=== PATIENT | male | born 1945 | race Caucasian/White ===

== ENCOUNTER 2017-10-12 14:43 | Inpatient (IN) | payer MEDICARE, SELFPAY ==
[2017-10-12 14:51] VITALS: BP 116/74; PULSE 94; RESP 18; TEMP 36.7; O2SAT 98
--- NOTE | 2017-10-12 14:59 | ED.GENADUL ---
Disposition Clinical Impression: Acute cystitis with hematuria Clinical Impression: (Ruled Out): Acute cystitis Disposition: [facility] INPATIENT Condition: Improving Medical Decision Making - Lab Data Laboratory Results - last 24 hr 10/12/17 10/12/17 10/12/17 15:20 15:30 15:30 WBC 13.91 H RBC 4.89 Hgb 15.1 Hct 44.0 MCV 90.0 MCH 30.9 MCHC 34.3 RDW 14.1 Plt Count 316 MPV 10.6 Immature Gran % 0.2 Neutrophils % 82.1 Lymphocytes % 10.8 Monocytes % 6.0 Eosinophils % 0.7 Basophils % 0.2 Absolute Neutrophils 11.42 H Absolute Lymphocytes 1.50 Absolute Monocytes 0.83 H Absolute Eosinophils 0.10 Absolute Basophils 0.03 Sodium 139 Potassium 3.6 Chloride 101 Carbon Dioxide 29.6 Anion Gap 8.4 BUN 34 H Creatinine 2.18 H Estimated GFR/1.73 m2 29.88 Glucose 286 H Calcium 9.2 Total Bilirubin 0.6 AST 19 ALT 31 Alkaline Phosphatase 152 H Total Protein 7.6 Albumin 3.4 Urine Color Yellow Urine Clarity Sl cloudy Urine pH 6.0 Ur Specific [place] 1.025 Urine Protein >=300 H Urine Ketones Negative Urine Blood Large H Urine Nitrite Positive H Urine Bilirubin Negative Urine Urobilinogen 0.2 Ur Leukocyte Esterase Trace H Urine RBC >50 H Urine WBC >50 Ur Epithelial Cells Negative Urine Crystals Negative Urine Bacteria Many Urine Casts Negative Urine Mucus Negative Ur Culture Indicated? Yes Urine Glucose 250 H Results reviewed for labs ordered during visit: Yes - Radiology Data Radiology results: report reviewed, image reviewed - Medical Decision Making 71-year-old male with history of BPH, presents with difficulty starting or stopping stream of urine over weeks time. He has no fever, is well-appearing, reports some suprapubic distention discomfort that improved with bit of incontinence of urine earlier in the day. Patient is afebrile and normotensive. Differential diagnosis includes UTI, prostatic hypertrophy. Patient had Whitt catheter placed with large volume urinary output and subsequent bloody discharge. He subsequently developed some bladder spasms as well. Referred for laboratory testing and CT imaging Creatinine typically 1.6 increase to 2.1 today BUN elevated to 34 with baseline mid 20s. Patient has a positive UTI with both positive nitrites, leukoesterase, white blood cells and bacteria. Case discussed with Dr. Cooney who agrees that the patient's urinary retention due to BPH and now urinary tract infection have led to irritation of the bladder mucosa and subsequent hematuria. He agrees with antibiotics, admission if needed for pain control. He states that he would not change to three-way catheter but rather irrigate the bladder as needed if catheter becomes obstructed. CT reveals mild right hydronephrosis and hydroureter. Appears to be acute clot within the bladder. See formal report. After B&O suppository, oxybutynin, and some morphine the patient has persistent bladder discomfort. Given his age, mild renal insufficiency, I do feel an overnight admission is reasonable. History of Present Illness - General Chief complaint: Urinary Stated complaint: CALEX Time Seen by Provider: 10/12/17 14:44 Source: patient, EMS Mode of arrival: EMS Limitations: no limitations - History of Present Illness Initial comments: Urinary retention: 71-year-old male with 2 weeks of intermittent episodes of dysuria with difficulty in starting a stream of urine. Today with suprapubic discomfort that was mild to moderate and improved with incontinence of urine. He has no fever, back pain, vomiting. States that he has otherwise been well. -: week(s) Location: abdomen Radiation: non-radiation Severity scale (1-10): 10 Quality: stabbing Consistency: intermittent Improves with: none Worsens with: none - Related Data Aspirin 81 mg PO DAILY 02/08/15 Glipizide 5 mg PO DAILY 02/08/15 Hydrochlorothiazide 25 mg PO DAILY 02/08/15 Insulin Aspart [NovoLOG Flexpen] 20 unit SQ AC 02/08/15 Insulin Glargine [Lantus Solostar] 45 units SQ BID 02/08/15 Losartan Potassium 50 mg PO DAILY 02/08/15 Multivitamin [Multivitamins] 1 tab PO DAILY 02/08/15 Sertraline [Zoloft] 100 mg PO DAILY 02/08/15 Tamsulosin [Flomax] 0.4 mg PO DAILY 02/08/15 Tiotropium [place] [Spiriva] 1 cap IH DAILY 02/08/15 Omeprazole 40 mg PO BID #60 tab-cap 08/14/16 Atorvastatin [Lipitor] 80 mg PO HS 10/12/17 Allergies Allergy/AdvReac Type Severity Reaction Status Date / Time No Known Allergies Allergy Unverified 10/12/17 17:27 Review of Systems Other: 6 systems reviewed, otherwise negative General Exam - General Limitations: no limitations General appearance: alert, in no apparent distress - Head Head exam: Present: atraumatic, normocephalic - Eye Eye exam: Present: PERRL, EOMI - ENT ENT exam: Present: TM's normal bilaterally - Neck Neck exam: Present: normal inspection, full ROM - Respiratory Respiratory exam: Present: normal lung sounds bilaterally. Absent: respiratory distress - Cardiovascular Cardiovascular Exam: Present: regular rate, normal rhythm - GI/Abdominal GI/Abdominal exam: Present: distended, other (Suprapubic distention). Absent: tenderness - Extremities Exam Extremities exam: Present: normal inspection - Neurological Exam Neurological exam: Present: alert, oriented X3 - Psychiatric Psychiatric exam: Present: normal affect, normal mood - Skin Skin exam: Present: warm, dry, intact Course Vital Signs - 24 hr 10/12/17 14:51 Temperature 36.7 C Pulse 94 H Respiratory 18 Rate Blood Pressure 116/74 Pulse Oximetry 98
[2017-10-12] MEDS: Lidocaine 2% Jelly 11 ML SYR (15:19)
--- NOTE | 2017-10-12 15:29 | DI.RPTCT_ITS ---
SYMPTOM/DIAGNOSIS: LOW ABD PAIN, HEMATURIA RENAL COLIC CT: The image quality is degraded by respiratory motion. The lung bases are unremarkable. Coronary artery calcifications are seen. The liver and gallbladder are unremarkable. No stones or ductal dilatation is seen. The pancreas, spleen and adrenals are unremarkable. Note is made of mild right hydronephrosis and hydroureter. The stomach and bowel are unremarkable. There are no findings to suggest an acute appendix. A vicente catheter drains the bladder. There is mild hypoattenuation material present in the bladder concerning for clot. No stones are seen. The patient is status post penile prosthesis placement with right lower quadrant and upper inguinal reservoir. The prostate is enlarged. There is no evidence of free air or free fluid in the intraperitoneal space. There is no acute bony abnormality. Soft tissues are unremarkable. There are moderate atherosclerotic changes with no evidence of an aortic aneurysm. There is no evidence of lymphadenopathy. SUMMARY: Obstructive changes in the right kidney are demonstrated, presumably secondary to an obstructing bladder lesion. There appears to be acute clot within the bladder.
[2017-10-12 15:33] LABS: Bilirubin Negative (Negative); Blood Large (Negative); Clarity Sl Cloudy; Glucose 250 mg/dL (Negative); Ketones Negative (Negative); Leukocyte Esterase Trace (Negative); Nitrite Positive (Negative); Specific Gravity 1.025 (1.005-1.025); Urobilinogen 0.2 EU/dL (Up TO 0.2)
[2017-10-12] MEDS: Ondansetron 4 MG/2 ML VIAL IVP (15:42)
[2017-10-12 16:01] LABS: ALT 31 U/L (12-78); AST 19 U/L (15-37); Albumin 3.4 g/dL (3.4-5.0); Alkaline Phosphatase 152 U/L (46-116); Anion Gap 8.4 mmol/L (3-11); BUN 34 mg/dL (7-18); Bilirubin, Total 0.6 mg/dL (0.2-1.0); CO2 29.6 mmol/L (21.0-32.0); CREATININE 2.18 mg/dL (0.70-1.30); Calcium 9.2 mg/dL (8.5-10.1); Chloride 101 mmol/L (98-107); Estimated GFR 29.88 (mL/min/1.73m2); Glucose 286 mg/dL (70-100); Potassium 3.6 mmol/L (3.5-5.1); Sodium 139 mmol/L (136-145); Total Protein 7.6 g/dL (6.4-8.2)
[2017-10-12 16:01] LABS: Bacteria Many HPF (Negative); C & S Indicated? Yes; Casts Negative LPF (Negative); Crystals Negative HPF (Negative); Epithelial Cells Negative HPF (Negative); Mucus Negative (Negative); RBC >50 (0-2); WBC >50 HPF (0-5)
[2017-10-12 16:15] LABS: Abs Immature Grans 0.03 k/cumm (0.0-0.09); Absolute Basophil Count 0.03 k/cumm (0.0-0.2); Basophils % 0.2; Eosinophils % 0.7; HGB 15.1 g/dL (13.5-17.5); Immature Grans % 0.2; Lymphocytes % 10.8; Mean Corp. HGB Concentration 34.3 g/dL (32.0-36.0); Mean Corpuscular Hemoglobin 30.9 pg (27.0-33.0); Mean Platelet Volume 10.6 fL (8.0-11.0); Neutrophils % 82.1; Platelet Count 316 x1000/uL (130-400); RBC 4.89 m/cumm (4.50-6.00); RBC Distribution Width 14.1 % (11.8-14.1); White Blood Cell Count 13.91 k/cumm (4.4-10.8)
[2017-10-12 16:17] LABS: Absolute Monocyte Count 0.83 k/cumm (0.11-0.7); Absolute Neutrophil Count 11.42 k/cumm (1.2-6.7)
[2017-10-12 16:30] VITALS: BP 109/93; PULSE 108; O2SAT 94
[2017-10-12] MEDS: MORPHine 10 MG/ML VIAL 4 MG IVP (16:40)
[2017-10-12 17:00] VITALS: BP 111/80; PULSE 109; O2SAT 95
[2017-10-12] MEDS: Oxybutynin 5 MG TAB PO ×2 (17:05→21:00)
[2017-10-12] MEDS: Normal Saline 1,000 ML 100 ML IV (17:23)
--- NOTE | 2017-10-12 17:25 | DI.VRAD_ITS ---
EXAM: CT Abdomen and Pelvis Without Intravenous Contrast EXAM DATE/TIME: 10/12/2017 3:30 PM CLINICAL HISTORY: 71 years old, male; Signs and symptoms; Abdominal tenderness and other: Lower abdominal pain, hematuria TECHNIQUE: Axial computed tomography images of the abdomen and pelvis without intravenous contrast. Coronal and sagittal reformatted images were created and reviewed. COMPARISON: No relevant prior studies available. FINDINGS: Artifacts: Respiratory motion noted. Lung bases: Unremarkable. No mass. No consolidation. Heart: Coronary artery calcifications identified. ABDOMEN: Liver: Unremarkable. Gallbladder and bile ducts: Unremarkable. No calcified stones. No ductal dilation. Pancreas: Unremarkable. No ductal dilation. Spleen: Unremarkable. No splenomegaly. Adrenals: Unremarkable. No mass. Kidneys and ureters: There is mild right hydronephrosis and hydroureter. Stomach and bowel: Unremarkable. No obstruction. No mucosal thickening. PELVIS: Appendix: No findings to suggest acute appendicitis. Bladder: Whitt catheter drains the bladder. There is hyperattenuating material present in the bladder concerning for clot. No stones. Reproductive: The patient is status post penile prosthesis placement with right lower quadrant and upper inguinal reservoir. The prostate is enlarged, 5.9 cm. ABDOMEN and PELVIS: Intraperitoneal space: Unremarkable. No free air. No significant fluid collection. Bones/joints: No acute fracture. No dislocation. Soft tissues: See above. Vasculature: Moderate atherosclerotic changes present in the vasculature. No abdominal aortic aneurysm. Lymph nodes: Unremarkable. No enlarged lymph nodes. IMPRESSION: Obstructive changes right renal collecting system, presumably secondary to obstructing bladder lesion. There appears to be acute clot within the bladder. Preliminary interpretation is based on receipt of 1551 image(s). A final report will be issued subsequently. We appreciate the opportunity to be involved in this patient's care. Dictated and Authenticated by: Vy Milian MD. Ordering:JAMIN ZAPIEN MD
[2017-10-12 18:00] VITALS: BP 117/73; PULSE 104; O2SAT 98
[2017-10-12 18:45] VITALS: BP 132/75; PULSE 105; RESP 19; TEMP 36.9; O2SAT 90
[2017-10-12 19:05] VITALS: BP 117/73; PULSE 104; RESP 18; TEMP 36.7; O2SAT 98
[2017-10-12] MEDS: Phenazopyridine 200 MG TAB PO (19:33)
--- NOTE | 2017-10-12 21:35 | HPE_ITS ---
DATE OF ADMISSION: October 12, 2017 CHIEF COMPLAINT: Unable to void. IMPRESSION: UTI, either precipitating or aggravating urinary retention. Unclear if the hematuria represents any further lesion. PLAN: For now, will continue antibiotics, Whitt catheter, with p.r.n. irrigation. Will consult Urology in the morning. Otherwise, will continue usual medications as is, with the exception of holding aspirin. Note: I will put an addendum in when I get doses of insulin but I would reduce this or hold it in the event the patient may be in for a procedure tomorrow. I review Advance Directives with the patient. He has no real opinion and will leave default FULL CODE. Addendum: NPO for AM, will hold scheduled insulin, leave on sliding scale coverage. HISTORY OF PRESENT ILLNESS: The patient is a 71-year-old male with history of BPH. He comes in with several days of difficulty voiding and suprapubic pain. In the Emergency Room, he was noted to have suprapubic distention. A catheter was placed and report is of 600 cc of grossly purulent urine, followed by gross hematuria. The case was reviewed with Urology who suggested p.r.n. irrigation rather than three-way continuous, along with antibiotics. The patient was given a dose of Rocephin. He was admitted for further evaluation and management. PAST MEDICAL HISTORY: 1. BPH. 2. Stroke. 3. Diabetes. 4. GERD. 5. Hypertension. 6. Hyperlipidemia. 7. Kidney stone. 8. Oswald's esophagus. 9. Status post laser to left eye for unspecified lesion. 10. Status post penile implant. ALLERGIES: None known. MEDICATIONS: 1. Aspirin 81 mg daily. 2. Lipitor 80 mg h.s. 3. Hydrochlorothiazide 25 mg daily. 4. Lantus and NovoLog, unspecified dosing. 5. Cozaar 50 mg daily. 6. Multivitamins. 7. Prilosec 40 mg b.i.d. 8. Zoloft 100 mg daily. 9. Flomax 0.4 mg daily. 10. Spiriva daily. PHYSICAL EXAMINATION: GENERAL: The patient is lying flat in the stretcher in no distress. VITAL SIGNS: Temperature 36.7. Blood pressure 116/74. Pulse 94. Respirations 18. O2 saturation 98% on room air. HEENT: Of note for resting left facial droop. NECK: Supple. LUNGS: Clear. HEART: Regular rate and rhythm. ABDOMEN: Soft and nontender. : Notes Whitt catheter in place draining grossly bloody urine. RECTAL: Deferred. EXTREMITIES: Without edema. NEUROLOGIC: The patient is alert and oriented and moves all four extremities. LABORATORY: White count 13.9, hematocrit 44, platelets 316,000. Sodium 139, potassium 3.6, chloride 101, bicarb 29, BUN 34, creatinine 2.1, glucose 286. Urinalysis shows >50 red cells and white cells. Renal CT shows clot in the bladder, prostate enlargement, and a mild right hydronephrosis.
[2017-10-12] MEDS: Atorvastatin 40 MG TAB 80 MG PO (21:53)
[2017-10-13] VITALS (51 sets, daily range): BP systolic 87–169; BP diastolic 46–106; PULSE 69–131; RESP 9–31; TEMP 36.2–36.9; O2SAT 89–100
[2017-10-13] MEDS: Normal Saline 1,000 ML 100 ML IV ×3 (04:55→23:13)
[2017-10-13] MEDS: LORazepam 2 MG/ML VIAL (07:15)
[2017-10-13 07:35] LABS: Abs Immature Grans 0.04 k/cumm (0.0-0.09); Absolute Basophil Count 0.05 k/cumm (0.0-0.2); Absolute Eosinophil Count 0.07 k/cumm (0.0-0.7); Absolute Lymphocyte Count 2.67 k/cumm (1.2-3.4); Absolute Monocyte Count 1.49 k/cumm (0.11-0.7); Absolute Neutrophil Count 12.09 k/cumm (1.2-6.7); Basophils % 0.3; Eosinophils % 0.4; HCT 42.6 % (40.0-50.0); HGB 14.3 g/dL (13.5-17.5); Immature Grans % 0.2; Lymphocytes % 16.3; Mean Corp. HGB Concentration 33.6 g/dL (32.0-36.0); Mean Corpuscular Volume 92.2 fL (80-95); Mean Platelet Volume 10.6 fL (8.0-11.0); Monocytes % 9.1; Neutrophils % 73.7; Platelet Count 404 x1000/uL (130-400); RBC 4.62 m/cumm (4.50-6.00); RBC Distribution Width 14.3 % (11.8-14.1); White Blood Cell Count 16.41 k/cumm (4.4-10.8)
[2017-10-13 07:44] LABS: INR 1.1 (1.0-3.5); Prothrombin Time 10.4 sec (9.3-10.8)
--- NOTE | 2017-10-13 07:50 | DI.RPTCT_ITS ---
SYMPTOM/DIAGNOSIS: ACUTELY UNRESPONSIVE, EYE DEVIATION, H/O CVA NONCONTRAST HEAD CT: There is no evidence of an intra/extra-axial hemorrhage. Age related chronic microvascular changes are noted within the white matter. The ventricles and sulci are prominent consistent with age appropriate atrophy. There is no skull fracture. The soft tissues are unremarkable. The sinuses are unremarkable. There is no mastoid effusion. IMPRESSION: No evidence of an acute intracranial abnormality.
[2017-10-13 07:57] LABS: ALT 25 U/L (12-78); AST 19 U/L (15-37); Albumin 2.8 g/dL (3.4-5.0); Alkaline Phosphatase 132 U/L (46-116); Anion Gap 16.2 mmol/L (3-11); BUN 45 mg/dL (7-18); Bilirubin, Total 0.7 mg/dL (0.2-1.0); CO2 21.8 mmol/L (21.0-32.0); CREATININE 3.15 mg/dL (0.70-1.30); Calcium 8.5 mg/dL (8.5-10.1); Chloride 103 mmol/L (98-107); Estimated GFR 19.54 (mL/min/1.73m2); Glucose 333 mg/dL (70-100); Magnesium 1.7 mg/dL (1.8-2.4); Potassium 4.6 mmol/L (3.5-5.1); Sodium 141 mmol/L (136-145); Total Protein 6.7 g/dL (6.4-8.2)
[2017-10-13 07:59] LABS: Troponin I < 0.02 ng/mL (0.00-0.06)
--- NOTE | 2017-10-13 08:09 | DI.VRAD_ITS ---
EXAM: CT Head Without Intravenous Contrast EXAM DATE/TIME: 10/13/2017 7:49 AM. CLINICAL HISTORY: 71 years old, male; Signs and symptoms; Other: Acutely unrespinsive, eye deviation; Patient HX: H/o CVA TECHNIQUE: Axial computed tomography images of the head/brain without intravenous contrast. All CT scans at this facility use one or more dose reduction techniques, viz.: automated exposure control; ma/kV adjustment per patient size (including targeted exams where dose is matched to indication; i.e. head); or iterative reconstruction technique. Coronal and sagittal reformatted images were created and reviewed. COMPARISON: CT - HEAD WITHOUT CONTRAST 2015-02-08 16:26 FINDINGS: Brain: Age- related chronic microvascular changes are noted within the white matter. No hemorrhage. Ventricles: The ventricles and sulci are prominent compatible with age-appropriate atrophy. Bones/joints: Unremarkable. No acute fracture. Soft tissues: Unremarkable. Sinuses: Unremarkable as visualized. No acute sinusitis. Mastoid air cells: Unremarkable as visualized. No mastoid effusion. IMPRESSION: Age-appropriate atrophy and chronic microvascular change. Dictated and Authenticated by: Bayron Duke MD. Ordering:CAREY GARCIA MD
[2017-10-13] MEDS: Normal Saline Flush 10 ML SYR IVP ×2 (08:17→18:27)
--- NOTE | 2017-10-13 08:41 | NUR.NOTE ---
Nursing Note: JUST BEFORE 7AM PT WOKE AGITATED AND TRYING TO GET OOB. PT LOOKING PALE. VS TAKEN 36.5 160.80 119 20 89% 1L O2 VIA NC. NOTE: NC FOUND OUT OF PT'S NOSE AND HAD JUST REAPPLIED. TAKING VS TOOK SOME TIME PT WAS MOVING IN BED. DID MANUAL BP. 0701 ASKED NURSE MGR TO TAKE A LOOK AT THE PATIENT HE DID NOT LOOK GOOD. NURSE MGR CAME OUT OF ROOM TO CALL MD. APPROX. 0703 PT HAD SEIZURE. HELP WAS SUMMONED. AMONG THOSE RESPONDING WERE: THIS NURSE, XIAO CASIANO, NURSE MGR DR HEATH ED DIRECTOR Leonidas FROM RESPIRATORY AN ANESTHESIOLOGIST JALEN SALMERON RN FROM ED MERE BRICENO, RN MING PATEL, RN ROSALBA COSME, RN 0707 RHYTHM ON ZOLL SHOWED SINUS TACHY WITH A HR OF 141 BY 0709 PT WAS ON A NONEBREATHER WITH 10LPM O2 SATING 94% AND HR 141 REPORT GIVEN TO ICU NURSE FELI KENNEY, MILADYS FS WAS TAKEN DURING CODE AND IT WAS 293. PT WAS GOING TO BE INTUBATED BY ER MD HEATH BUT PT BECAME RESPONSIVE AND INTUBATION WAS NOT NEEDED 0720 ATIVAN 1MG GIVEN IV 0722 LABS DRAWN. PT TAKEN TO ICU SOON AFTER.
[2017-10-13] MEDS: Insulin Aspart 300 UNITS/3 ML PEN SC ×2 (09:06→19:14)
--- NOTE | 2017-10-13 10:43 | PHARADMIT ---
Addendum entered by Michael Friend III 10/17/17 14:15: Pharmacy Note Subjective Having difficulty with bladder spasms (q15 min) overnight. Has urinary retention, getting straight cath'ed. Urine clear to pink was dark red. Has bladder mass, [place] [facility] Objective VS-OK FSBS-280 no Labs, Had BM Assessment MD following Insulin adjustments Plan Awaiting Cystoscopy appointment. ?? discharge later today. Original Note: Addendum entered by Michael Friend III 10/16/17 13:38: Pharmacy Note Subjective Brain MRI shows no lesions. Urinary retention ? secondary to clots. Spasms noted. Objective VS-OK K+3.4 Na-137 SCr-1.52 FSBS-204 Wgt-up (109.7 kg) Large BM today Assessment Rec'd 30mEq K+ PO bolus, Insulin adjusted. MD thinks seizure related to intolerance to B&O Supp. Plan Patient is to go [place] [facility] [place] next week, will be discharged prior. Original Note: Addendum entered by Sendy Dodson 10/15/17 11:55: Pharmacy Note Subjective concern for bladder CA, MRI today(lorazepam PRN ordered) . possible surgery here or transfer to another facility Objective vs ok, urine muñoz colored, SCr down to 1.84, H/H 12.3/36.9, FS 207, Assessment insulin glargine adusted up, ceftriaxone stopped, keppra IV continues Plan watch FS, H/H, Original Note: Addendum entered by Sendy Dodson 10/14/17 11:19: Pharmacy Note Subjective seizure yesterday, soft restraints on, Objective SCr down to 2.31, WBC down to 12.84, H/H down to 12.7/38.2, FS 137, UC no growth 48 hours, hematuria Assessment keppra IV started and continues, Insulin aspart and glargine continue, ceftriaxone IV continues, Plan neurology consult ,EEG, MRI pending, ? stop ceftriaxone due to micro results Original Note: Admission Pharmacy Clinical Review UTI, URINARY RETENTION Code Status Full Code Current Weight Wgt- 104.5 kg Renally Cleared and Narrow Therapeutic Index Meds CrCl~ 21 mL/min Meds-Ok QTc Value / Action Taken QTc-455 na BP Control, Fever BP-117/60 Tmax- 36.7C Electrolytes reviewed Na- 141 K+4.6 Mag-1.7 DVT Prophylaxis None Opiate Usage / Scheduled Bowel Regimen Ordered Yes No Plt/SCr for Heparin / Enoxaparin Plts-404 SCr-3.15 INR for Warfarin inr-1.1 H/H stable, WBC/Bands H&H- 14.3/42.6 WBC- 16.41 Antibiotic appropriateness Rocephin Cultures and Sensitivities Urine- No Growth/24hrs Surgical ABX d/c within 24 hr na DM control / Insulin Dosing BG-333 Aspart, Losartan, Heart Failure (Check EF%) (SMITH's, B-Block, Diuretics) HCTZ, IV to PO Switch No Home Meds Reviewed Yes Home Meds Not Ordered Glipizide, Lantus Comments
--- NOTE | 2017-10-13 10:48 | PDOC.PROG ---
Date of Service: 10/13/17 Time of Service: 10:48 Assessment/Plan - Assessment/Plan (1) Mental status alteration Assessment: Initial assessment including glucose and CT not revealing. General mental status changes, including extraocular muscle abnormalities, could be attributed to multiple anticholinergic medications given last night on top of morphine and benzodiazepine. These have been stopped. I think medication toxicity is most likely the cause of the acute mental status changes. He does have a h/o CVA so I think repeat MRI is warranted. EEG useful as seizure also in DDx. If symptoms do not clear up, request neurologic consult temporarily in restraints for safety until he improves. restart ASA given h/o CVA and no bleed on CT. Some blood in urine but h/h not dropping rapidly. (2) Urinary retention Assessment: Urology consulted, has vicente in place and getting treatment for infection. At this point treat pain with morphine rather than using anticholinergics. Pyridium stopped as contraindicated in renal insufficiency. Given bleeding and clot in bladder on CT, cystoscopy likely warranted. Await Eros's plan. (3) Diabetes type 2, controlled Assessment: Insulin was held on admission. He will likely need at least some basal glargine so I will start at lower dose. (4) Cerebrovascular disease Assessment: h/o CVA. I'm not sure this represents CVA but as above I think MRI warranted. Restarting ASA as I think benefit > risk at this point. (5) Renal insufficiency Assessment: acute on chronic, apparently secondary to lower urinary tract obstruction. Follow. History of Present Illness - History of Present Illness Chief Complaint: urine retention, mental status changes History of Present Illness: 24 hr: Called at 7:18 am initially, patient unresponsive. I arrived to [facility] a few minutes later and Dr. Wakefield was evaluating patient for acute mental status changes, he was confused and eyes were deviated. BP and pulse stable. Consideration was given to intubation for airway protection, but patient became more responsive during evaluation. Transferred to ICU and CT head w/o negative. Upon my initial evaluation, Mr. Panchal was responding to noxious stimuli and localizing touch but unable to follow commands. Currently he is vocalizing/moaning but is not able to give history. He can say no when asked if he remembered what happened this morning. He denies pain currently Review of Systems - Review of Systems Constitutional: denies: Fever Respiratory: denies: Cough Cardiovascular: denies: Edema Gastrointestinal: denies: Vomiting, Diarrhea Genitourinary: Incontinence (chronic), Hematuria, Retention Skin: denies: Rash Neurological: Confusion. denies: Seizures Other: limited by mental status - Medications/Allergies Allergies/Adverse Reactions: Allergies Allergy/AdvReac Type Severity Reaction Status Date / Time No Known Allergies Allergy Unverified 10/12/17 17:27 Medications: Current Medications Albuterol Sulfate (Proventil Updraft) 2.5 mg UPD Q4H PRN PRN Atorvastatin Calcium (Lipitor) 80 mg PO HS [facility] Last Admin: 10/12/17 21:53 Dose: 80 mg Dextrose (Insta-Glucose) 0 gm PO DIRECTED PRN Dextrose/Water () 0 gm IVP DIRECTED PRN Dimethicone/Zinc Oxide (Arabella Protect Cream) 0 gm TP PRN PRN Hydrochlorothiazide (Hydrodiuril) 25 mg PO DAILY [facility] Last Admin: 10/13/17 09:50 Dose: Not Given Sodium Chloride (Saline 1000ml Bag) 1,000 mls @ 100 mls/hr IV INFUSION [facility] Last Admin: 10/13/17 04:55 Dose: 100 mls/hr Ceftriaxone Sodium 1,000 mg/ (Sodium Chloride) 50 mls @ 100 mls/hr IVPB Q24H [facility] IV Miscellaneous Supplies () 1 each IV DIRECTED [facility] Insulin Aspart (Novolog Flexpen) 0 units SC 0800,1200,1700 [facility] PRN Reason: Protocol Last Admin: 10/13/17 09:06 Dose: 10 units Lidocaine HCl (Glydo 2%) Confirm Administered Dose 11 ml .ROUTE .DM PRN Last Admin: 10/12/17 15:19 Dose: 11 ml Losartan Potassium (Cozaar) 50 mg PO DAILY [facility] Last Admin: 10/13/17 09:50 Dose: Not Given Morphine Sulfate () 4 mg IVP Q4H PRN PRN Last Admin: 10/12/17 21:00 Dose: 4 mg Multivitamins () 1 tab PO DAILY [facility] Last Admin: 10/13/17 09:50 Dose: Not Given Omeprazole (Prilosec) 40 mg PO BID [facility] Last Admin: 10/13/17 09:50 Dose: Not Given Sertraline HCl (Zoloft) 100 mg PO DAILY [facility] Last Admin: 10/13/17 09:50 Dose: Not Given Sodium Chloride (Saline Flush 10 Ml Syringe) 0 ml IVP PRN PRN Last Admin: 10/13/17 08:17 Dose: 90 ml Tamsulosin HCl (Flomax) 0.4 mg PO DAILY [facility] Last Admin: 10/13/17 09:50 Dose: Not Given Tiotropium [place] (Spiriva Handihaler) 1 cap IH DAILY [facility] Last Admin: 10/13/17 09:35 Dose: Not Given Objective - Exam Vitals and I&O: Vital Signs Temp 36.6 C 10/13/17 09:12 Pulse 97 H 10/13/17 09:30 Resp 12 10/13/17 09:30 BP 117/60 10/13/17 09:30 Pulse Ox 98 10/13/17 09:12 Intake & Output 10/12/17 10/12/17 10/13/17 11:59 23:59 11:59 Output Total 125 Balance -125 Weight 104.5 kg Output: Urine 125 Other: Urine Color Dark Red Bright Red General: Mild distress. denies: Alert, Oriented x3 HEENT: Atraumatic, PERRLA, Mucous membr. moist/pink. denies: EOMI (Eyes no longer grossly deviated, pupils now reactive about 3mm and roughly equal, but unable to fully complete EOMI) Neck: Supple Lungs: Clear to auscultation, Normal air movement Cardiovascular: Regular rate (borderline tachy), Normal S1, Normal S2 Abdomen: Normal bowel sounds, Soft. denies: Tenderness Extremities: denies: Cyanosis, Edema Skin: denies: Rashes Neurological: Reflexes 2+ (he is moving all 4 extremities. not hyperreflexic. CN assessment difficult as hard to get to follow commands, has chronic left facial droop but now able to stick out toungue, smile, close eyes and roughly symetric). denies: Normal speech Psych/Mental Status: denies: Mental status NL - Results Results: Laboratory Results WBC 16.41 k/cumm (4.4-10.8) H 10/13/17 07:25 RBC 4.62 m/cumm (4.50-6.00) 10/13/17 07:25 Hgb 14.3 g/dL (13.5-17.5) 10/13/17 07:25 Hct 42.6 % (40.0-50.0) 10/13/17 07:25 MCV 92.2 fL (80-95) 10/13/17 07:25 MCH 31.0 pg (27.0-33.0) 10/13/17 07:25 MCHC 33.6 g/dL (32.0-36.0) 10/13/17 07:25 RDW 14.3 % (11.8-14.1) H 10/13/17 07:25 Plt Count 404 x1000/uL (130-400) H 10/13/17 07:25 MPV 10.6 fL (8.0-11.0) 10/13/17 07:25 Immature Gran % 0.2 10/13/17 07:25 Neutrophils % 73.7 10/13/17 07:25 Lymphocytes % 16.3 10/13/17 07:25 Monocytes % 9.1 10/13/17 07:25 Eosinophils % 0.4 10/13/17 07:25 Basophils % 0.3 10/13/17 07:25 Absolute Neutrophils 12.09 k/cumm (1.2-6.7) H 10/13/17 07:25 Absolute Lymphocytes 2.67 k/cumm (1.2-3.4) 10/13/17 07:25 Absolute Monocytes 1.49 k/cumm (0.11-0.7) H 10/13/17 07:25 Absolute Eosinophils 0.07 k/cumm (0.0-0.7) 10/13/17 07:25 Absolute Basophils 0.05 k/cumm (0.0-0.2) 10/13/17 07:25 PT 10.4 sec (9.3-10.8) 10/13/17 07:25 INR 1.1 (1.0-3.5) 10/13/17 07:25 Sodium 141 mmol/L (136-145) 10/13/17 07:25 Potassium 4.6 mmol/L (3.5-5.1) D 10/13/17 07:25 Chloride 103 mmol/L (98-107) 10/13/17 07:25 Carbon Dioxide 21.8 mmol/L (21.0-32.0) 10/13/17 07:25 Anion Gap 16.2 mmol/L (3-11) H 10/13/17 07:25 BUN 45 mg/dL (7-18) H D 10/13/17 07:25 Creatinine 3.15 mg/dL (0.70-1.30) H D 10/13/17 07:25 Estimated GFR/1.73 m2 19.54 (mL/min/1.73m2) 10/13/17 07:25 Glucose 333 mg/dL (70-100) H 10/13/17 07:25 Calcium 8.5 mg/dL (8.5-10.1) 10/13/17 07:25 Magnesium 1.7 mg/dL (1.8-2.4) L 10/13/17 07:25 Total Bilirubin 0.7 mg/dL (0.2-1.0) 10/13/17 07:25 AST 19 U/L (15-37) 10/13/17 07:25 ALT 25 U/L (12-78) 10/13/17 07:25 Alkaline Phosphatase 132 U/L (46-116) H 10/13/17 07:25 Troponin I < 0.02 ng/mL (0.00-0.06) 10/13/17 07:25 Total Protein 6.7 g/dL (6.4-8.2) 10/13/17 07:25 Albumin 2.8 g/dL (3.4-5.0) L 10/13/17 07:25 Urine Color Yellow (Yellow) 10/12/17 15:20 Urine Clarity Sl cloudy 10/12/17 15:20 Urine pH 6.0 (5-8) 10/12/17 15:20 Ur Specific [place] 1.025 (1.005-1.025) 10/12/17 15:20 Urine Protein >=300 mg/dL (Negative) H 10/12/17 15:20 Urine Ketones Negative mg/dL (Negative) 10/12/17 15:20 Urine Blood Large (Negative) H 10/12/17 15:20 Urine Nitrite Positive (Negative) H 10/12/17 15:20 Urine Bilirubin Negative (Negative) 10/12/17 15:20 Urine Urobilinogen 0.2 EU/dL (Up TO 0.2) 10/12/17 15:20 Ur Leukocyte Esterase Trace (Negative) H 10/12/17 15:20 Urine RBC >50 (0-2) H 10/12/17 15:20 Urine WBC >50 HPF (0-5) 10/12/17 15:20 Ur Epithelial Cells Negative HPF (Negative) 10/12/17 15:20 Urine Crystals Negative HPF (Negative) 10/12/17 15:20 Urine Bacteria Many HPF (Negative) 10/12/17 15:20 Urine Casts Negative LPF (Negative) 10/12/17 15:20 Urine Mucus Negative (Negative) 10/12/17 15:20 Ur Culture Indicated? Yes 10/12/17 15:20 Urine Glucose 250 mg/dL (Negative) H 10/12/17 15:20 Patient ABO/Rh A Positive 10/13/17 07:25 Antibody Screen Negative 10/13/17 07:25
--- NOTE | 2017-10-13 10:53 | PDOC.PROG_ITS ---
Date of Service: 10/13/17 Time of Service: 10:48 Assessment/Plan - Assessment/Plan (1) Mental status alteration Assessment: Initial assessment including glucose and CT not revealing. General mental status changes, including extraocular muscle abnormalities, could be attributed to multiple anticholinergic medications given last night on top of morphine and benzodiazepine. These have been stopped. I think medication toxicity is most likely the cause of the acute mental status changes. He does have a h/o CVA so I think repeat MRI is warranted. EEG useful as seizure also in DDx. If symptoms do not clear up, request neurologic consult temporarily in restraints for safety until he improves. restart ASA given h/o CVA and no bleed on CT. Some blood in urine but h/h not dropping rapidly. (2) Urinary retention Assessment: Urology consulted, has vicente in place and getting treatment for infection. At this point treat pain with morphine rather than using anticholinergics. Pyridium stopped as contraindicated in renal insufficiency. Given bleeding and clot in bladder on CT, cystoscopy likely warranted. Await Eros's plan. (3) Diabetes type 2, controlled Assessment: Insulin was held on admission. He will likely need at least some basal glargine so I will start at lower dose. (4) Cerebrovascular disease Assessment: h/o CVA. I'm not sure this represents CVA but as above I think MRI warranted. Restarting ASA as I think benefit > risk at this point. (5) Renal insufficiency Assessment: acute on chronic, apparently secondary to lower urinary tract obstruction. Follow. History of Present Illness - History of Present Illness Chief Complaint: urine retention, mental status changes History of Present Illness: 24 hr: Called at 7:18 am initially, patient unresponsive. I arrived to [facility] a few minutes later and Dr. Wakefield was evaluating patient for acute mental status changes, he was confused and eyes were deviated. BP and pulse stable. Consideration was given to intubation for airway protection, but patient became more responsive during evaluation. Transferred to ICU and CT head w/o negative. Upon my initial evaluation, Mr. Panchal was responding to noxious stimuli and localizing touch but unable to follow commands. Currently he is vocalizing/ moaning but is not able to give history. He can say no when asked if he remembered what happened this morning. He denies pain currently Review of Systems - Review of Systems Constitutional: denies: Fever Respiratory: denies: Cough Cardiovascular: denies: Edema Gastrointestinal: denies: Vomiting, Diarrhea Genitourinary: Incontinence (chronic), Hematuria, Retention Skin: denies: Rash Neurological: Confusion. denies: Seizures Other: limited by mental status - Medications/Allergies Allergies/Adverse Reactions: Allergies Allergy/AdvReac Type Severity Reaction Status Date / Time No Known Allergies Allergy Unverified 10/12/17 17:27 Medications: Current Medications Albuterol Sulfate (Proventil Updraft) 2.5 mg UPD Q4H PRN PRN Atorvastatin Calcium (Lipitor) 80 mg PO HS [facility] Last Admin: 10/12/17 21:53 Dose: 80 mg Dextrose (Insta-Glucose) 0 gm PO DIRECTED PRN Dextrose/Water () 0 gm IVP DIRECTED PRN Dimethicone/Zinc Oxide (Arabella Protect Cream) 0 gm TP PRN PRN Hydrochlorothiazide (Hydrodiuril) 25 mg PO DAILY [facility] Last Admin: 10/13/17 09:50 Dose: Not Given Sodium Chloride (Saline 1000ml Bag) 1,000 mls @ 100 mls/hr IV INFUSION [facility] Last Admin: 10/13/17 04:55 Dose: 100 mls/hr Ceftriaxone Sodium 1,000 mg/ (Sodium Chloride) 50 mls @ 100 mls/hr IVPB Q24H [facility] IV Miscellaneous Supplies () 1 each IV DIRECTED [facility] Insulin Aspart (Novolog Flexpen) 0 units SC 0800,1200,1700 [facility] PRN Reason: Protocol Last Admin: 10/13/17 09:06 Dose: 10 units Lidocaine HCl (Glydo 2%) Confirm Administered Dose 11 ml .ROUTE .DM PRN Last Admin: 10/12/17 15:19 Dose: 11 ml Losartan Potassium (Cozaar) 50 mg PO DAILY [facility] Last Admin: 10/13/17 09:50 Dose: Not Given Morphine Sulfate () 4 mg IVP Q4H PRN PRN Last Admin: 10/12/17 21:00 Dose: 4 mg Multivitamins () 1 tab PO DAILY [facility] Last Admin: 10/13/17 09:50 Dose: Not Given Omeprazole (Prilosec) 40 mg PO BID [facility] Last Admin: 10/13/17 09:50 Dose: Not Given Sertraline HCl (Zoloft) 100 mg PO DAILY [facility] Last Admin: 10/13/17 09:50 Dose: Not Given Sodium Chloride (Saline Flush 10 Ml Syringe) 0 ml IVP PRN PRN Last Admin: 10/13/17 08:17 Dose: 90 ml Tamsulosin HCl (Flomax) 0.4 mg PO DAILY [facility] Last Admin: 10/13/17 09:50 Dose: Not Given Tiotropium [place] (Spiriva Handihaler) 1 cap IH DAILY [facility] Last Admin: 10/13/17 09:35 Dose: Not Given Objective - Exam Vitals and I&O: Vital Signs Temp 36.6 C 10/13/17 09:12 Pulse 97 H 10/13/17 09:30 Resp 12 10/13/17 09:30 BP 117/60 10/13/17 09:30 Pulse Ox 98 10/13/17 09:12 Intake & Output 10/12/17 10/12/17 10/13/17 11:59 23:59 11:59 Output Total 125 Balance -125 Weight 104.5 kg Output: Urine 125 Other: Urine Color Dark Red Bright Red General: Mild distress. denies: Alert, Oriented x3 HEENT: Atraumatic, PERRLA, Mucous membr. moist/pink. denies: EOMI (Eyes no longer grossly deviated, pupils now reactive about 3mm and roughly equal, but unable to fully complete EOMI) Neck: Supple Lungs: Clear to auscultation, Normal air movement Cardiovascular: Regular rate (borderline tachy), Normal S1, Normal S2 Abdomen: Normal bowel sounds, Soft. denies: Tenderness Extremities: denies: Cyanosis, Edema Skin: denies: Rashes Neurological: Reflexes 2+ (he is moving all 4 extremities. not hyperreflexic. CN assessment difficult as hard to get to follow commands, has chronic left facial droop but now able to stick out toungue, smile, close eyes and roughly symetric). denies: Normal speech Psych/Mental Status: denies: Mental status NL - Results Results: Laboratory Results WBC 16.41 k/cumm (4.4-10.8) H 10/13/17 07:25 RBC 4.62 m/cumm (4.50-6.00) 10/13/17 07:25 Hgb 14.3 g/dL (13.5-17.5) 10/13/17 07:25 Hct 42.6 % (40.0-50.0) 10/13/17 07:25 MCV 92.2 fL (80-95) 10/13/17 07:25 MCH 31.0 pg (27.0-33.0) 10/13/17 07:25 MCHC 33.6 g/dL (32.0-36.0) 10/13/17 07:25 RDW 14.3 % (11.8-14.1) H 10/13/17 07:25 Plt Count 404 x1000/uL (130-400) H 10/13/17 07:25 MPV 10.6 fL (8.0-11.0) 10/13/17 07:25 Immature Gran % 0.2 10/13/17 07:25 Neutrophils % 73.7 10/13/17 07:25 Lymphocytes % 16.3 10/13/17 07:25 Monocytes % 9.1 10/13/17 07:25 Eosinophils % 0.4 10/13/17 07:25 Basophils % 0.3 10/13/17 07:25 Absolute Neutrophils 12.09 k/cumm (1.2-6.7) H 10/13/17 07:25 Absolute Lymphocytes 2.67 k/cumm (1.2-3.4) 10/13/17 07:25 Absolute Monocytes 1.49 k/cumm (0.11-0.7) H 10/13/17 07:25 Absolute Eosinophils 0.07 k/cumm (0.0-0.7) 10/13/17 07:25 Absolute Basophils 0.05 k/cumm (0.0-0.2) 10/13/17 07:25 PT 10.4 sec (9.3-10.8) 10/13/17 07:25 INR 1.1 (1.0-3.5) 10/13/17 07:25 Sodium 141 mmol/L (136-145) 10/13/17 07:25 Potassium 4.6 mmol/L (3.5-5.1) D 10/13/17 07:25 Chloride 103 mmol/L (98-107) 10/13/17 07:25 Carbon Dioxide 21.8 mmol/L (21.0-32.0) 10/13/17 07:25 Anion Gap 16.2 mmol/L (3-11) H 10/13/17 07:25 BUN 45 mg/dL (7-18) H D 10/13/17 07:25 Creatinine 3.15 mg/dL (0.70-1.30) H D 10/13/17 07:25 Estimated GFR/1.73 m2 19.54 (mL/min/1.73m2) 10/13/17 07:25 Glucose 333 mg/dL (70-100) H 10/13/17 07:25 Calcium 8.5 mg/dL (8.5-10.1) 10/13/17 07:25 Magnesium 1.7 mg/dL (1.8-2.4) L 10/13/17 07:25 Total Bilirubin 0.7 mg/dL (0.2-1.0) 10/13/17 07:25 AST 19 U/L (15-37) 10/13/17 07:25 ALT 25 U/L (12-78) 10/13/17 07:25 Alkaline Phosphatase 132 U/L (46-116) H 10/13/17 07:25 Troponin I < 0.02 ng/mL (0.00-0.06) 10/13/17 07:25 Total Protein 6.7 g/dL (6.4-8.2) 10/13/17 07:25 Albumin 2.8 g/dL (3.4-5.0) L 10/13/17 07:25 Urine Color Yellow (Yellow) 10/12/17 15:20 Urine Clarity Sl cloudy 10/12/17 15:20 Urine pH 6.0 (5-8) 10/12/17 15:20 Ur Specific [place] 1.025 (1.005-1.025) 10/12/17 15:20 Urine Protein >=300 mg/dL (Negative) H 10/12/17 15:20 Urine Ketones Negative mg/dL (Negative) 10/12/17 15:20 Urine Blood Large (Negative) H 10/12/17 15:20 Urine Nitrite Positive (Negative) H 10/12/17 15:20 Urine Bilirubin Negative (Negative) 10/12/17 15:20 Urine Urobilinogen 0.2 EU/dL (Up TO 0.2) 10/12/17 15:20 Ur Leukocyte Esterase Trace (Negative) H 10/12/17 15:20 Urine RBC >50 (0-2) H 10/12/17 15:20 Urine WBC >50 HPF (0-5) 10/12/17 15:20 Ur Epithelial Cells Negative HPF (Negative) 10/12/17 15:20 Urine Crystals Negative HPF (Negative) 10/12/17 15:20 Urine Bacteria Many HPF (Negative) 10/12/17 15:20 Urine Casts Negative LPF (Negative) 10/12/17 15:20 Urine Mucus Negative (Negative) 10/12/17 15:20 Ur Culture Indicated? Yes 10/12/17 15:20 Urine Glucose 250 mg/dL (Negative) H 10/12/17 15:20 Patient ABO/Rh A Positive 10/13/17 07:25 Antibody Screen Negative 10/13/17 07:25
--- NOTE | 2017-10-13 10:55 | PDOC.CMIN ---
Date of Service: 10/13/17 Time of Service: 10:55 Care Management Initial Assess REASON FOR HOSPITALIZATION:: UTI PAST MEDICAL HISTORY/PAST SURGICAL HISTORY:: BPH, Stroke, Diabetes, GERD, Hypertension, Hyperlipidemia, Kidney stone, Oswald's esophagus, S/P laser to (L) eye for unspecified lesion, S/P penile implant PREVIOUS FUNCTIONAL STATUS/SOCIAL/FAMILY SUPPORTS:: CM obtained all information from Pts son, as Pt is minimally responsive at this time. CM spoke with Hector(Son), whom states that he resides with Pt in his home. At baseline Doroteo is able to drive and drives 1-2x/week. Hector states that Doroteo does not do well with eating habits and eats a lot of junk. 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 Pt also has a daughter Toya whom resides locally as well. CURRENT FUNCTIONAL STATUS:: Doroteo was transferred to the ICU this morning after an episode of unresponsiveness. He remains minimally responsive at this time. Bony Young has been in to visit, and will return this afternoon. ADVANCE DIRECTIVES:: None on file Has patient been provided with information about the portal?: No Did the patient sign up for the portal?: No CODE STATUS:: Full Code INSURANCE COVERAGE / FINANCIAL ISSUES:: Medicare CURRENT HOME/COMMUNITY SERVICES/EQUIPMENT:: Currently Pt has a cane and a shower chair at home which he uses all the time. He has a FWW which he does not use. Pt has MOW in the community. Bony Young states that Pt had home health however this was discontinued as he was driving. PRIMARY CARE PHYSICIAN:: Dr. Magana POTENTIAL DISCHARGE NEEDS:: F/U appointment with PCP. Home Health - ? home health RN/PT/OT services upon DC. PATIENT/FAMILY EDUCATION NEEDS:: Review DC instructions, any limitations, and ongoing DC planning discussion. ANTICIPATED BARRIERS TO DISCHARGE:: None identified at this time. TRANSPORTATION:: Via private vehicle with bony Young. PLAN:: Pt to return home with ? home health RN/PT/OT services. Pts bony Young to transport, and Pt to F/U with PCP outpatient.
--- NOTE | 2017-10-13 11:04 | INITIAL_ITS ---
Date of Service: 10/13/17 Time of Service: 10:55 Care Management Initial Assess REASON FOR HOSPITALIZATION:: UTI PAST MEDICAL HISTORY/PAST SURGICAL HISTORY:: BPH, Stroke, Diabetes, GERD, Hypertension, Hyperlipidemia, Kidney stone, Oswald's esophagus, S/P laser to (L ) eye for unspecified lesion, S/P penile implant PREVIOUS FUNCTIONAL STATUS/SOCIAL/FAMILY SUPPORTS:: CM obtained all information from Pts son, as Pt is minimally responsive at this time. CM spoke with Hector( Son), whom states that he resides with Pt in his home. At baseline Doroteo is able to drive and drives 1-2x/week. Hector states that Doroteo does not do well with eating habits and eats a lot of junk. 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 Pt also has a daughter Toya whom resides locally as well. CURRENT FUNCTIONAL STATUS:: Doroteo was transferred to the ICU this morning after an episode of unresponsiveness. He remains minimally responsive at this time. Bony Young has been in to visit, and will return this afternoon. ADVANCE DIRECTIVES:: None on file Has patient been provided with information about the portal?: No Did the patient sign up for the portal?: No CODE STATUS:: Full Code INSURANCE COVERAGE / FINANCIAL ISSUES:: Medicare CURRENT HOME/COMMUNITY SERVICES/EQUIPMENT:: Currently Pt has a cane and a shower chair at home which he uses all the time. He has a FWW which he does not use. Pt has MOW in the community. Bony Young states that Pt had home health however this was discontinued as he was driving. PRIMARY CARE PHYSICIAN:: Dr. Magana POTENTIAL DISCHARGE NEEDS:: F/U appointment with PCP. Home Health - ? home health RN/PT/OT services upon DC. PATIENT/FAMILY EDUCATION NEEDS:: Review DC instructions, any limitations, and ongoing DC planning discussion. ANTICIPATED BARRIERS TO DISCHARGE:: None identified at this time. TRANSPORTATION:: Via private vehicle with bony Young. PLAN:: Pt to return home with ? home health RN/PT/OT services. Pts bony Young to transport, and Pt to F/U with PCP outpatient.
--- NOTE | 2017-10-13 12:18 | DM INPTCON_ITS ---
DESCRIPTION/ASSESSMENT: Appreciate diabetes consult for Mr. Panchal who is here with a urinary infection. In the past he has taken 40u Lantus AM and PM in addition to 10units at each meal for carbohydrate, and insulin 1 unit corrects 20mg/dl above 140mg/dl. At that time he had difficulty remembering mealtime insulin. Here blood sugars are in the 2-300s with infection and discomfort. It is unclear what he has for medication regimen at this time. Last available A1c 10.6 in 2016. Even with his basal insulin, it is unclear he has been able to correct his a1c. INTERVENTION/PLAN: Suggest his usual basal insulin at the least. Will f/u after a day of blood sugar tracking and management.
[2017-10-13 12:19] LABS: Troponin I < 0.02 ng/mL (0.00-0.06)
--- NOTE | 2017-10-13 15:57 | NUR.NOTE ---
Nursing Note: At change of shift, this RN followed RT into the room to check on patient monitor alarm. Pt found to be unresponsive and posturing (decerebrate positioning with fists clenched and turned out, and arms rigid straight), with foamy sputum at mouth and bilateral eyes fixed and deviated to the left. quality assurance monitor displays sinus tach 130's, unreliable SpO2 reading. Pt very stiff, with jittering right foot. Pt looked similar to episode earlier in shift that caused transfer into ICU originally. This episode lasted 2-3 minutes. Following, pt less rigid but very restless and moaning. Medina James, RN, Merlin Olson, RN, Jason Jacobsen, RN, and Dr. Magana present at this time. Dr. Magana to consult with Dr. Ybarra regarding possible seizures. No medications given at this time.
--- NOTE | 2017-10-13 16:27 | PROG.BLANK ---
Date of Service: 10/13/17 Time of Service: 15:45 Progress Note Called to ICU for seizure. When I arrived pt with not responsive, eyes rolled back in head and rhythmically moving left leg with left arm extended and wrist flexed. Did not respond to command or pain, pupils 2mm verito and minimally reactive. Abnormal movement resolved within 5 minutes of my arrival without use of benzodiazapine. He was then responsive with vocalizations and moving 4 extremities, but still confused. This was similar to after the first episode this morning. Breathing comfortably with some snoring after episode. BPs and pulse stable. I am more concerned that this represents seizure acitivity. I called Dr. Ybarra for advice. Will load with 1000mg IV Keprra and 500mg BID. Neurology consult pending. EEG and MRI already pending.
[2017-10-13] MEDS: Ondansetron 4 MG/2 ML VIAL IVP (18:23)
[2017-10-13] MEDS: Ondansetron 4 MG/2 ML VIAL (18:25)
[2017-10-13] MEDS: Insulin Glargine 300 UNITS/3 ML PEN 45 UNITS SC (23:12)
[2017-10-14] VITALS (63 sets, daily range): BP systolic 82–191; BP diastolic 53–100; PULSE 89–124; RESP 14–40; TEMP 35.6–37; O2SAT 93–97
[2017-10-14] MEDS: Normal Saline Flush 10 ML SYR IVP ×2 (00:35→08:33)
[2017-10-14 06:59] LABS: HCT 38.2 % (40.0-50.0); HGB 12.7 g/dL (13.5-17.5); Mean Corp. HGB Concentration 33.2 g/dL (32.0-36.0); Mean Corpuscular Hemoglobin 31.2 pg (27.0-33.0); Mean Corpuscular Volume 93.9 fL (80-95); Mean Platelet Volume 10.6 fL (8.0-11.0); Platelet Count 306 x1000/uL (130-400); RBC 4.07 m/cumm (4.50-6.00); RBC Distribution Width 14.4 % (11.8-14.1); White Blood Cell Count 12.84 k/cumm (4.4-10.8)
[2017-10-14 07:09] LABS: Anion Gap 8.5 mmol/L (3-11); BUN 54 mg/dL (7-18); CO2 26.5 mmol/L (21.0-32.0); CREATININE 2.31 mg/dL (0.70-1.30); Calcium 8.2 mg/dL (8.5-10.1); Chloride 110 mmol/L (98-107); Estimated GFR 27.95 (mL/min/1.73m2); Glucose 155 mg/dL (70-100); Magnesium 2.1 mg/dL (1.8-2.4); Potassium 4.3 mmol/L (3.5-5.1); Sodium 145 mmol/L (136-145)
[2017-10-14] MEDS: Normal Saline 1,000 ML 100 ML IV ×2 (08:31→18:49)
[2017-10-14] MEDS: Hydrochlorothiazide 25 MG TAB PO (08:34)
[2017-10-14] MEDS: Multivitamin TAB 1 TAB PO (08:34)
[2017-10-14] MEDS: Aspirin 81 MG CHEW PO (08:34)
[2017-10-14] MEDS: Tamsulosin 0.4 MG CAPCR PO (08:34)
[2017-10-14] MEDS: Losartan 50 MG TAB PO (08:34)
[2017-10-14] MEDS: Omeprazole 20 MG CAPCR 40 MG PO ×2 (08:34→15:54)
[2017-10-14] MEDS: Sertraline 50 MG TAB 100 MG PO (08:34)
[2017-10-14] MEDS: Insulin Aspart 300 UNITS/3 ML PEN SC ×2 (11:53→16:57)
--- NOTE | 2017-10-14 12:14 | PDOC.EEG ---
Date of Service: 10/14/17 EEG: [facility] INPATIENT EEG REPORT Date of Recordin10/14/17 Referring Physician: Dr. Magana Reason for study: Mr. Panchal is a 71 year-old man with a history of a right hemisphere stroke in 2009, admitted for UTI and bladder retention, with 2 episodes of unresponsiveness, one of which he was witnessed to have left arm posturing and left leg rhythmic shaking concerning for seizure. Current Medications: See medication list. Keppra 500mg BID. METHODS: A 21 channel digitized electroencephalogram was performed in the [facility] ICU. The 10/20 international system of electrode placement was used and bipolar and referential electrode montages were recorded. In addition to EEG the patient was monitored for EKG and lateral/vertical eye movements. Activation procedures of photic stimulation and hyperventilation were performed if applicable. Video was used during activation procedures and during events where applicable. The duration of the recording was 30 minutes. DESCRIPTION OF EEG: The patient was noted to be awake, drowsy, and asleep during the recording. During maximal wakefulness an 8-Hz posterior background rhythm was present which was poorly-modulated, symmetrical, reactive to eye opening, and of moderate voltage. With eye opening the background activity changed to a low voltage mixture of alpha, beta, and occasional theta range frequencies. Faster frequencies were present in the bilateral anterior head regions. There was a normal anterior-posterior voltage gradient. During drowsiness, there was attenuation of the posterior dominant background rhythm and vertex waves. Stage II sleep was present with symmetrical sleep spindles, K-complexes, and vertex waves. During the brief wakefulness recorded, there was intermittent, generalized, moderate-amplitude, polymorphic slowing (1-2 Hz). ACTIVATING PROCEDURES: Photic stimulation was performed which produced no posterior driving response. Hyperventilation was not performed. EKG: EKG revealed normal sinus rhythm. INTERPRETATION: This EEG is abnormal due to: #1. Intermittent, generalized, moderate-amplitude, polymorphic slowing (1-2 Hz). #2. Slowing of the posterior dominant background rhythm. PRIOR EEG: none CLINICAL CORRELATION: The findings above are suggestive of a mild diffuse cerebral encephalopathy of broad differential including toxic-metabolic etiology. No focal regions of cerebral dysfunction or epileptiform activity was present. Epilepsy remains a clinical diagnosis and a normal EEG does not rule out epilepsy. Clinical correlation is advised. Shonda Kan MD [facility] Neurology
--- NOTE | 2017-10-14 12:19 | PDOC.EEG_ITS ---
Date of Service: 10/14/17 EEG: [facility] INPATIENT EEG REPORT Date of Recordin10/14/17 Referring Physician: Dr. Magana Reason for study: Mr. Panchal is a 71 year-old man with a history of a right hemisphere stroke in 2009, admitted for UTI and bladder retention, with 2 episodes of unresponsiveness, one of which he was witnessed to have left arm posturing and left leg rhythmic shaking concerning for seizure. Current Medications: See medication list. Keppra 500mg BID. METHODS: A 21 channel digitized electroencephalogram was performed in the [facility] ICU. The 10/20 international system of electrode placement was used and bipolar and referential electrode montages were recorded. In addition to EEG the patient was monitored for EKG and lateral/ vertical eye movements. Activation procedures of photic stimulation and hyperventilation were performed if applicable. Video was used during activation procedures and during events where applicable. The duration of the recording was 30 minutes. DESCRIPTION OF EEG: The patient was noted to be awake, drowsy, and asleep during the recording. During maximal wakefulness an 8-Hz posterior background rhythm was present which was poorly-modulated, symmetrical, reactive to eye opening, and of moderate voltage. With eye opening the background activity changed to a low voltage mixture of alpha, beta, and occasional theta range frequencies. Faster frequencies were present in the bilateral anterior head regions. There was a normal anterior-posterior voltage gradient. During drowsiness, there was attenuation of the posterior dominant background rhythm and vertex waves. Stage II sleep was present with symmetrical sleep spindles, K-complexes, and vertex waves. During the brief wakefulness recorded, there was intermittent, generalized, moderate-amplitude, polymorphic slowing (1-2 Hz). ACTIVATING PROCEDURES: Photic stimulation was performed which produced no posterior driving response. Hyperventilation was not performed. EKG: EKG revealed normal sinus rhythm. INTERPRETATION: This EEG is abnormal due to: #1. Intermittent, generalized, moderate-amplitude, polymorphic slowing (1-2 Hz) . #2. Slowing of the posterior dominant background rhythm. PRIOR EEG: none CLINICAL CORRELATION: The findings above are suggestive of a mild diffuse cerebral encephalopathy of broad differential including toxic-metabolic etiology. No focal regions of cerebral dysfunction or epileptiform activity was present. Epilepsy remains a clinical diagnosis and a normal EEG does not rule out epilepsy. Clinical correlation is advised. Shonda Kan MD [facility] Neurology
--- NOTE | 2017-10-14 15:12 | PDOC.PROG ---
Date of Service: 10/14/17 Time of Service: 14:40 Assessment/Plan - Assessment/Plan (1) Mental status alteration Assessment: Much better today. After second episode yesterday I was more concerned with seizures. Interestingly, EEG more c/w encephalopathy from medications than with seizures. MRI and neurology consultation still pending. Will try to avoid too many anticholinergic medications for spasms and other sedating meds. (2) Urinary retention Assessment: Still has vicente. Persistent hematuria, but less marked. Irrigate PRN. Urology consult still pending. Urine culture not c/w infection, so I stopped the ceftriaxone. (3) Diabetes type 2, controlled Assessment: Got 1/4 of home dose of glargine and blood sugar in low 100s fasting, though higher today. I anticipate sugars will increase now that awake and eating. Will monitor and titrate up insulin. (4) Cerebrovascular disease Assessment: Exam now back at baseline with mild left hemiparesis. Repeat MRI pending, pre-medicated. (5) Renal insufficiency Assessment: Improving, but still above baseline. urine output okay. Follow History of Present Illness - History of Present Illness Chief Complaint: urine retention History of Present Illness: 24hr: second event with acute change in mental status, this one a/w rhythmic movements on left side. See afternoon note from yesterday. EEG done this morning Ed feels much better today, though he can't remember what happened yesterday. He is still getting severe spasm-like pain in his bladder and penis area intermittently, about every 30 minutes. No abdominal or pelvic pain right now. He is eating. He does think he had a seizure when he was diagnosed with his stroke years ago but wasn't ever on medications. Review of Systems - Review of Systems Constitutional: denies: Fever, Chills ENT: Other (no difficulty swallowing. thinks voice less clear as doesn't have top dentures in). denies: Throat Pain Respiratory: denies: Cough, Shortness of Breath Cardiovascular: denies: Chest Pain, Palpitations, Edema Gastrointestinal: denies: Nausea, Vomiting, Diarrhea, Constipation, Melena Genitourinary: Hematuria. denies: Dysuria Skin: denies: Rash Neurological: denies: Weakness, Numbness, Confusion, Seizures - Medications/Allergies Allergies/Adverse Reactions: Allergies Allergy/AdvReac Type Severity Reaction Status Date / Time No Known Allergies Allergy Unverified 10/12/17 17:27 Medications: Current Medications Albuterol Sulfate (Proventil Updraft) 2.5 mg UPD Q4H PRN PRN Aspirin () 81 mg PO DAILY [facility] Last Admin: 10/14/17 08:34 Dose: 81 mg Atorvastatin Calcium (Lipitor) 80 mg PO HS [facility] Last Admin: 10/14/17 00:28 Dose: Not Given Dextrose (Insta-Glucose) 0 gm PO DIRECTED PRN Dextrose/Water () 0 gm IVP DIRECTED PRN Dimethicone/Zinc Oxide (Arabella Protect Cream) 0 gm TP PRN PRN Flavoxate HCl (Urispas) 100 mg PO TID [facility] Last Admin: 10/14/17 13:46 Dose: 100 mg Hydrochlorothiazide (Hydrodiuril) 25 mg PO DAILY [facility] Last Admin: 10/14/17 08:34 Dose: 25 mg Sodium Chloride (Saline 1000ml Bag) 1,000 mls @ 100 mls/hr IV INFUSION [facility] Last Admin: 10/14/17 08:31 Dose: 100 mls/hr Levetiracetam 500 mg/ Sodium (Chloride) 105 mls @ 400 mls/hr IVPB Q12H [facility] Last Admin: 10/14/17 03:42 Dose: 400 mls/hr IV Miscellaneous Supplies () 1 each IV DIRECTED [facility] Insulin Aspart (Novolog Flexpen) 0 units SC 0800,1200,1700 [facility] PRN Reason: Protocol Last Admin: 10/14/17 11:53 Dose: 8 units Insulin Glargine (Lantus Solostar) 22 units SC [facility] Lorazepam (Ativan) 1 mg PO DAILY PRN PRN PRN Reason: Anxiety Losartan Potassium (Cozaar) 50 mg PO DAILY [facility] Last Admin: 10/14/17 08:34 Dose: 50 mg Morphine Sulfate () 2 - 4 mg IVP Q4H PRN PRN PRN Reason: Pain Last Admin: 10/14/17 00:35 Dose: 4 mg Multivitamins () 1 tab PO DAILY [facility] Last Admin: 10/14/17 08:34 Dose: 1 tab Omeprazole (Prilosec) 40 mg PO BID AC [facility] Last Admin: 10/14/17 08:34 Dose: 40 mg Ondansetron HCl (Zofran Injection) 4 mg IVP Q4H PRN PRN Sertraline HCl (Zoloft) 100 mg PO DAILY [facility] Last Admin: 10/14/17 08:34 Dose: 100 mg Sodium Chloride (Saline Flush 10 Ml Syringe) 0 ml IVP PRN PRN Last Admin: 10/14/17 08:33 Dose: 20 ml Tamsulosin HCl (Flomax) 0.4 mg PO DAILY [facility] Last Admin: 10/14/17 08:34 Dose: 0.4 mg Tiotropium [place] (Spiriva Handihaler) 1 cap IH DAILY [facility] Last Admin: 10/14/17 07:25 Dose: 1 cap Objective - Exam Vitals and I&O: Vital Signs Temp 36.6 C 10/14/17 12:42 Pulse 96 H 10/14/17 10:01 Resp 18 10/14/17 10:01 BP 133/55 10/14/17 10:01 Pulse Ox 93 L 10/14/17 14:02 Intake & Output 10/13/17 10/14/17 10/14/17 23:59 11:59 23:59 Intake Total 1469 1665 1394 Output Total 725 840 650 Balance 744 825 744 Weight 103.7 kg Intake: IV 1419 825 794 Oral 50 840 600 Output: Urine 725 840 650 Other: Urine Color Dark Red Dark Red Dark Red Urine Appearance Hematuria Hematuria Hematuria Comment Pt has vicente catheter in place with bright red bloody clots and bladder spasms Pt has vicente catheter in place with bright red bloody clots and bladder spasms. Vicente irrigation PRN if needed. Pt has vicente catheter in place with bright red bloody clots and bladder spasms. Vicente irrigation PRN if needed. General: Alert, Oriented x3, Cooperative, No acute distress HEENT: PERRLA, EOMI, Mucous membr. moist/pink Lungs: Clear to auscultation, Normal air movement Cardiovascular: Regular rate, Normal S1, Normal S2. denies: Murmurs Abdomen: Normal bowel sounds, Soft. denies: Tenderness Extremities: denies: Edema, Tenderness/swelling Skin: denies: Rashes Neurological: Cranial nerves 3-12 NL. denies: Normal speech (slightly slurred (again dentures out)), Strength at 5/5 X4 ext (slightly less strong in left arm vs right (chronic)) Psych/Mental Status: Mental status NL, Mood NL - Results Results: Laboratory Results WBC 12.84 k/cumm (4.4-10.8) H 10/14/17 06:20 RBC 4.07 m/cumm (4.50-6.00) L 10/14/17 06:20 Hgb 12.7 g/dL (13.5-17.5) L 10/14/17 06:20 Hct 38.2 % (40.0-50.0) L 10/14/17 06:20 MCV 93.9 fL (80-95) 10/14/17 06:20 MCH 31.2 pg (27.0-33.0) 10/14/17 06:20 MCHC 33.2 g/dL (32.0-36.0) 10/14/17 06:20 RDW 14.4 % (11.8-14.1) H 10/14/17 06:20 Plt Count 306 x1000/uL (130-400) 10/14/17 06:20 MPV 10.6 fL (8.0-11.0) 10/14/17 06:20 Immature Gran % 0.2 10/13/17 07:25 Neutrophils % 73.7 10/13/17 07:25 Lymphocytes % 16.3 10/13/17 07:25 Monocytes % 9.1 10/13/17 07:25 Eosinophils % 0.4 10/13/17 07:25 Basophils % 0.3 10/13/17 07:25 Absolute Neutrophils 12.09 k/cumm (1.2-6.7) H 10/13/17 07:25 Absolute Lymphocytes 2.67 k/cumm (1.2-3.4) 10/13/17 07:25 Absolute Monocytes 1.49 k/cumm (0.11-0.7) H 10/13/17 07:25 Absolute Eosinophils 0.07 k/cumm (0.0-0.7) 10/13/17 07:25 Absolute Basophils 0.05 k/cumm (0.0-0.2) 10/13/17 07:25 PT 10.4 sec (9.3-10.8) 10/13/17 07:25 INR 1.1 (1.0-3.5) 10/13/17 07:25 Sodium 145 mmol/L (136-145) 10/14/17 06:20 Potassium 4.3 mmol/L (3.5-5.1) 10/14/17 06:20 Chloride 110 mmol/L (98-107) H 10/14/17 06:20 Carbon Dioxide 26.5 mmol/L (21.0-32.0) 10/14/17 06:20 Anion Gap 8.5 mmol/L (3-11) 10/14/17 06:20 BUN 54 mg/dL (7-18) H 10/14/17 06:20 Creatinine 2.31 mg/dL (0.70-1.30) H D 10/14/17 06:20 Estimated GFR/1.73 m2 27.95 (mL/min/1.73m2) 10/14/17 06:20 Glucose 155 mg/dL (70-100) H D 10/14/17 06:20 Calcium 8.2 mg/dL (8.5-10.1) L 10/14/17 06:20 Magnesium 2.1 mg/dL (1.8-2.4) 10/14/17 06:20 Total Bilirubin 0.7 mg/dL (0.2-1.0) 10/13/17 07:25 AST 19 U/L (15-37) 10/13/17 07:25 ALT 25 U/L (12-78) 10/13/17 07:25 Alkaline Phosphatase 132 U/L (46-116) H 10/13/17 07:25 Troponin I < 0.02 ng/mL (0.00-0.06) 10/13/17 11:30 Total Protein 6.7 g/dL (6.4-8.2) 10/13/17 07:25 Albumin 2.8 g/dL (3.4-5.0) L 10/13/17 07:25 Urine Color Yellow (Yellow) 10/12/17 15:20 Urine Clarity Sl cloudy 10/12/17 15:20 Urine pH 6.0 (5-8) 10/12/17 15:20 Ur Specific [place] 1.025 (1.005-1.025) 10/12/17 15:20 Urine Protein >=300 mg/dL (Negative) H 10/12/17 15:20 Urine Ketones Negative mg/dL (Negative) 10/12/17 15:20 Urine Blood Large (Negative) H 10/12/17 15:20 Urine Nitrite Positive (Negative) H 10/12/17 15:20 Urine Bilirubin Negative (Negative) 10/12/17 15:20 Urine Urobilinogen 0.2 EU/dL (Up TO 0.2) 10/12/17 15:20 Ur Leukocyte Esterase Trace (Negative) H 10/12/17 15:20 Urine RBC >50 (0-2) H 10/12/17 15:20 Urine WBC >50 HPF (0-5) 10/12/17 15:20 Ur Epithelial Cells Negative HPF (Negative) 10/12/17 15:20 Urine Crystals Negative HPF (Negative) 10/12/17 15:20 Urine Bacteria Many HPF (Negative) 10/12/17 15:20 Urine Casts Negative LPF (Negative) 10/12/17 15:20 Urine Mucus Negative (Negative) 10/12/17 15:20 Ur Culture Indicated? Yes 10/12/17 15:20 Urine Glucose 250 mg/dL (Negative) H 10/12/17 15:20 Patient ABO/Rh A Positive 10/13/17 07:25 Antibody Screen Negative 10/13/17 07:25
--- NOTE | 2017-10-14 15:16 | PDOC.PROG_ITS ---
Date of Service: 10/14/17 Time of Service: 14:40 Assessment/Plan - Assessment/Plan (1) Mental status alteration Assessment: Much better today. After second episode yesterday I was more concerned with seizures. Interestingly, EEG more c/w encephalopathy from medications than with seizures. MRI and neurology consultation still pending. Will try to avoid too many anticholinergic medications for spasms and other sedating meds. (2) Urinary retention Assessment: Still has vicente. Persistent hematuria, but less marked. Irrigate PRN. Urology consult still pending. Urine culture not c/w infection, so I stopped the ceftriaxone. (3) Diabetes type 2, controlled Assessment: Got 1/4 of home dose of glargine and blood sugar in low 100s fasting, though higher today. I anticipate sugars will increase now that awake and eating. Will monitor and titrate up insulin. (4) Cerebrovascular disease Assessment: Exam now back at baseline with mild left hemiparesis. Repeat MRI pending, pre- medicated. (5) Renal insufficiency Assessment: Improving, but still above baseline. urine output okay. Follow History of Present Illness - History of Present Illness Chief Complaint: urine retention History of Present Illness: 24hr: second event with acute change in mental status, this one a/w rhythmic movements on left side. See afternoon note from yesterday. EEG done this morning Ed feels much better today, though he can't remember what happened yesterday. He is still getting severe spasm-like pain in his bladder and penis area intermittently, about every 30 minutes. No abdominal or pelvic pain right now. He is eating. He does think he had a seizure when he was diagnosed with his stroke years ago but wasn't ever on medications. Review of Systems - Review of Systems Constitutional: denies: Fever, Chills ENT: Other (no difficulty swallowing. thinks voice less clear as doesn't have top dentures in). denies: Throat Pain Respiratory: denies: Cough, Shortness of Breath Cardiovascular: denies: Chest Pain, Palpitations, Edema Gastrointestinal: denies: Nausea, Vomiting, Diarrhea, Constipation, Melena Genitourinary: Hematuria. denies: Dysuria Skin: denies: Rash Neurological: denies: Weakness, Numbness, Confusion, Seizures - Medications/Allergies Allergies/Adverse Reactions: Allergies Allergy/AdvReac Type Severity Reaction Status Date / Time No Known Allergies Allergy Unverified 10/12/17 17:27 Medications: Current Medications Albuterol Sulfate (Proventil Updraft) 2.5 mg UPD Q4H PRN PRN Aspirin () 81 mg PO DAILY [facility] Last Admin: 10/14/17 08:34 Dose: 81 mg Atorvastatin Calcium (Lipitor) 80 mg PO HS [facility] Last Admin: 10/14/17 00:28 Dose: Not Given Dextrose (Insta-Glucose) 0 gm PO DIRECTED PRN Dextrose/Water () 0 gm IVP DIRECTED PRN Dimethicone/Zinc Oxide (Arabella Protect Cream) 0 gm TP PRN PRN Flavoxate HCl (Urispas) 100 mg PO TID [facility] Last Admin: 10/14/17 13:46 Dose: 100 mg Hydrochlorothiazide (Hydrodiuril) 25 mg PO DAILY [facility] Last Admin: 10/14/17 08:34 Dose: 25 mg Sodium Chloride (Saline 1000ml Bag) 1,000 mls @ 100 mls/hr IV INFUSION [facility] Last Admin: 10/14/17 08:31 Dose: 100 mls/hr Levetiracetam 500 mg/ Sodium (Chloride) 105 mls @ 400 mls/hr IVPB Q12H [facility] Last Admin: 10/14/17 03:42 Dose: 400 mls/hr IV Miscellaneous Supplies () 1 each IV DIRECTED [facility] Insulin Aspart (Novolog Flexpen) 0 units SC 0800,1200,1700 [facility] PRN Reason: Protocol Last Admin: 10/14/17 11:53 Dose: 8 units Insulin Glargine (Lantus Solostar) 22 units SC [facility] Lorazepam (Ativan) 1 mg PO DAILY PRN PRN PRN Reason: Anxiety Losartan Potassium (Cozaar) 50 mg PO DAILY [facility] Last Admin: 10/14/17 08:34 Dose: 50 mg Morphine Sulfate () 2 - 4 mg IVP Q4H PRN PRN PRN Reason: Pain Last Admin: 10/14/17 00:35 Dose: 4 mg Multivitamins () 1 tab PO DAILY [facility] Last Admin: 10/14/17 08:34 Dose: 1 tab Omeprazole (Prilosec) 40 mg PO BID AC [facility] Last Admin: 10/14/17 08:34 Dose: 40 mg Ondansetron HCl (Zofran Injection) 4 mg IVP Q4H PRN PRN Sertraline HCl (Zoloft) 100 mg PO DAILY [facility] Last Admin: 10/14/17 08:34 Dose: 100 mg Sodium Chloride (Saline Flush 10 Ml Syringe) 0 ml IVP PRN PRN Last Admin: 10/14/17 08:33 Dose: 20 ml Tamsulosin HCl (Flomax) 0.4 mg PO DAILY [facility] Last Admin: 10/14/17 08:34 Dose: 0.4 mg Tiotropium [place] (Spiriva Handihaler) 1 cap IH DAILY [facility] Last Admin: 10/14/17 07:25 Dose: 1 cap Objective - Exam Vitals and I&O: Vital Signs Temp 36.6 C 10/14/17 12:42 Pulse 96 H 10/14/17 10:01 Resp 18 10/14/17 10:01 BP 133/55 10/14/17 10:01 Pulse Ox 93 L 10/14/17 14:02 Intake & Output 10/13/17 10/14/17 10/14/17 23:59 11:59 23:59 Intake Total 1469 1665 1394 Output Total 725 840 650 Balance 744 825 744 Weight 103.7 kg Intake: IV 1419 825 794 Oral 50 840 600 Output: Urine 725 840 650 Other: Urine Color Dark Red Dark Red Dark Red Urine Appearance Hematuria Hematuria Hematuria Comment Pt has vicente catheter in place with bright red bloody clots and bladder spasms Pt has vicente catheter in place with bright red bloody clots and bladder spasms. Vicente irrigation PRN if needed. Pt has vicente catheter in place with bright red bloody clots and bladder spasms. Vicente irrigation PRN if needed. General: Alert, Oriented x3, Cooperative, No acute distress HEENT: PERRLA, EOMI, Mucous membr. moist/pink Lungs: Clear to auscultation, Normal air movement Cardiovascular: Regular rate, Normal S1, Normal S2. denies: Murmurs Abdomen: Normal bowel sounds, Soft. denies: Tenderness Extremities: denies: Edema, Tenderness/swelling Skin: denies: Rashes Neurological: Cranial nerves 3-12 NL. denies: Normal speech (slightly slurred ( again dentures out)), Strength at 5/5 X4 ext (slightly less strong in left arm vs right (chronic)) Psych/Mental Status: Mental status NL, Mood NL - Results Results: Laboratory Results WBC 12.84 k/cumm (4.4-10.8) H 10/14/17 06:20 RBC 4.07 m/cumm (4.50-6.00) L 10/14/17 06:20 Hgb 12.7 g/dL (13.5-17.5) L 10/14/17 06:20 Hct 38.2 % (40.0-50.0) L 10/14/17 06:20 MCV 93.9 fL (80-95) 10/14/17 06:20 MCH 31.2 pg (27.0-33.0) 10/14/17 06:20 MCHC 33.2 g/dL (32.0-36.0) 10/14/17 06:20 RDW 14.4 % (11.8-14.1) H 10/14/17 06:20 Plt Count 306 x1000/uL (130-400) 10/14/17 06:20 MPV 10.6 fL (8.0-11.0) 10/14/17 06:20 Immature Gran % 0.2 10/13/17 07:25 Neutrophils % 73.7 10/13/17 07:25 Lymphocytes % 16.3 10/13/17 07:25 Monocytes % 9.1 10/13/17 07:25 Eosinophils % 0.4 10/13/17 07:25 Basophils % 0.3 10/13/17 07:25 Absolute Neutrophils 12.09 k/cumm (1.2-6.7) H 10/13/17 07:25 Absolute Lymphocytes 2.67 k/cumm (1.2-3.4) 10/13/17 07:25 Absolute Monocytes 1.49 k/cumm (0.11-0.7) H 10/13/17 07:25 Absolute Eosinophils 0.07 k/cumm (0.0-0.7) 10/13/17 07:25 Absolute Basophils 0.05 k/cumm (0.0-0.2) 10/13/17 07:25 PT 10.4 sec (9.3-10.8) 10/13/17 07:25 INR 1.1 (1.0-3.5) 10/13/17 07:25 Sodium 145 mmol/L (136-145) 10/14/17 06:20 Potassium 4.3 mmol/L (3.5-5.1) 10/14/17 06:20 Chloride 110 mmol/L (98-107) H 10/14/17 06:20 Carbon Dioxide 26.5 mmol/L (21.0-32.0) 10/14/17 06:20 Anion Gap 8.5 mmol/L (3-11) 10/14/17 06:20 BUN 54 mg/dL (7-18) H 10/14/17 06:20 Creatinine 2.31 mg/dL (0.70-1.30) H D 10/14/17 06:20 Estimated GFR/1.73 m2 27.95 (mL/min/1.73m2) 10/14/17 06:20 Glucose 155 mg/dL (70-100) H D 10/14/17 06:20 Calcium 8.2 mg/dL (8.5-10.1) L 10/14/17 06:20 Magnesium 2.1 mg/dL (1.8-2.4) 10/14/17 06:20 Total Bilirubin 0.7 mg/dL (0.2-1.0) 10/13/17 07:25 AST 19 U/L (15-37) 10/13/17 07:25 ALT 25 U/L (12-78) 10/13/17 07:25 Alkaline Phosphatase 132 U/L (46-116) H 10/13/17 07:25 Troponin I < 0.02 ng/mL (0.00-0.06) 10/13/17 11:30 Total Protein 6.7 g/dL (6.4-8.2) 10/13/17 07:25 Albumin 2.8 g/dL (3.4-5.0) L 10/13/17 07:25 Urine Color Yellow (Yellow) 10/12/17 15:20 Urine Clarity Sl cloudy 10/12/17 15:20 Urine pH 6.0 (5-8) 10/12/17 15:20 Ur Specific [place] 1.025 (1.005-1.025) 10/12/17 15:20 Urine Protein >=300 mg/dL (Negative) H 10/12/17 15:20 Urine Ketones Negative mg/dL (Negative) 10/12/17 15:20 Urine Blood Large (Negative) H 10/12/17 15:20 Urine Nitrite Positive (Negative) H 10/12/17 15:20 Urine Bilirubin Negative (Negative) 10/12/17 15:20 Urine Urobilinogen 0.2 EU/dL (Up TO 0.2) 10/12/17 15:20 Ur Leukocyte Esterase Trace (Negative) H 10/12/17 15:20 Urine RBC >50 (0-2) H 10/12/17 15:20 Urine WBC >50 HPF (0-5) 10/12/17 15:20 Ur Epithelial Cells Negative HPF (Negative) 10/12/17 15:20 Urine Crystals Negative HPF (Negative) 10/12/17 15:20 Urine Bacteria Many HPF (Negative) 10/12/17 15:20 Urine Casts Negative LPF (Negative) 10/12/17 15:20 Urine Mucus Negative (Negative) 10/12/17 15:20 Ur Culture Indicated? Yes 10/12/17 15:20 Urine Glucose 250 mg/dL (Negative) H 10/12/17 15:20 Patient ABO/Rh A Positive 10/13/17 07:25 Antibody Screen Negative 10/13/17 07:25
--- NOTE | 2017-10-14 15:16 | DM INPTCON_ITS ---
DESCRIPTION/ASSESSMENT: Appreciate diabetes consult for Mr. Panchal who is well known to us from outpatient diabetes consult in the past as noted. BMI 33 Met with Mr. Panchal who is surprised and aware that his blood sugar this morning was less than 200 which is unusual for him. He states he only takes Lantus at 40u morning and night. He does not take insulin with meals at home, though this has been prescribed in the past. He has been started on 22u Lantus here with moderate insulin correction. No carb intake identified. INTERVENTION/PLAN: Suggest increasing insulin correction to resistant given his body habitus with insulin resistance. There is little evidence he will respond to more self management support at this point in time, however will meet with him prior to discharge as allowed.
--- NOTE | 2017-10-14 15:25 | PDOC.CMPRO ---
Care Management Progress Note S/O: Doroteo continues to be closely monitored in the ICU. He showed improvement today, had an EEG and will have an MRI and Neurology consultation as well. A: 71 year old male admitted to [facility] 10/13/17 for UTI, Urinary Retention P: Doroteo will discharge home when ready per MD. He will resume [facility]/RN/PT/OT services and follow up with his PCP and Neurologist. He will transport via private vehicle with his son, Hector.
--- NOTE | 2017-10-14 15:43 | CMPROGNOTE_ITS ---
Care Management Progress Note S/O: Doroteo continues to be closely monitored in the ICU. He showed improvement today, had an EEG and will have an MRI and Neurology consultation as well. A: 71 year old male admitted to [facility] 10/13/17 for UTI, Urinary Retention P: Doroteo will discharge home when ready per MD. He will resume [facility]/RN/PT/OT services and follow up with his PCP and Neurologist. He will transport via private vehicle with his son, Hector.
--- NOTE | 2017-10-14 18:51 | UCONE_ITS ---
DATE OF CONSULTATION: October 14, 2017 CHIEF COMPLAINT: Gross hematuria. IMPRESSION: Gross hematuria. PLAN: Typically our next recommendation would be a cystoscopy and retrograde pyelogram to complete h is hematuria workup. Given the appearance of the right kidney and right ureter, I think it is highly likely that he has an underlying tumor there on the right side that would be causing his x-ray hope es. For that reason we probably should be prepared to resect a bladder tumor at the time of his cyst oscopy. This type of procedure would likely need a minimum of monitored anesthesia care depending on the exte nt of any resection that needed to be done. He may actually need a general anesthetic. Given his medical condition and his mental status issues since his admission, we would need to check with our anesthesia providers to see if they are comfortable giving anesthesia to this gentleman here at our facility or if any nonemergent procedure would be better done at a larger facility. If he does develop urinary retention and requires an emergent clot evacuation, that certainly could b e done with some sedation. HISTORY: This is a 71-year-old gentleman who was admitted through the Emergency Room two days ago. At that time he presented with suprapubic discomfort and an inability to void. A Whitt catheter was placed and they noted 600 cc of what was described as purulent urine on initial catheter placement. The urine then became grossly bloody. He was admitted with a presumptive diagnosis of a urinary trac t infection and urinary retention. Since his admission, however, his urine culture has actually shown no bacterial growth. He has maurice nued to have hematuria but no clot retention. He has had a CT scan which showed some hydronephrosis on the right with dilated ureter all the way down to the bladder, a thickened bladder wall, and what appears to be clot within the bladder. The CT was done without contrast. The patient denies any previous urologic issues, however his medical records indicate that he has had a kidney stone and that he had a penile prosthesis placed so I would think he had some involvement w ith a urologist previously. He does have a smoking history but quit somewhere between 5 and 10 years ago. He denies any type of surgery but, as I mentioned before, he has had a penile prosthesis placed. PAST MEDICAL HISTORY: 1. Diabetes. 2. Stroke. 3. COPD. 4. Oswald's esophagus. 5. GERD. 6. Hypertension. 7. Hyperlipidemia. PAST SURGICAL HISTORY: 1. Multiple colonoscopies and upper endoscopies. 2. Placement of a penile prosthesis. CURRENT MEDICATIONS: Listed elsewhere in the chart. ALLERGIES: None. SOCIAL HISTORY: As I previously mentioned, he tells me that he quit smoking between 5 and 10 years a go. FAMILY HISTORY: He denies any family history of urologic malignancy. REVIEW OF SYSTEMS: General: He denies fever or chills. HEENT: He denies vision change. Endocrine: The only medical history he admits to is diabetes. He denies any thyroid dysfunction. Respiratory: He denies cough or sputum production. Cardiac: He denies coronary artery disease or angina. GI: He denies nausea, vomiting, or diarrhea. He does have the history of Oswald's esophagus. Neurologic: He denies previous stroke although it is well documented in his chart. In fact, during this hospitalization he has had mental status changes that are being worked up with EEG studies as we ll as an MRI. Hematologic: He has no known bleeding disorders. Musculoskeletal: He has some arthralgia but no history of gout. PHYSICAL EXAMINATION: He is a pale, older gentleman seen in his bed in the Intensive Care Unit. He does not appear septic or toxic. His chest wall motion is normal. He is not short of breath at rest. The abdomen is obese but soft, with no guarding or rebound tenderness. The kidneys, liver, and splee n are not enlarged. There is a Whitt catheter in place that is draining red-tinged urine. I do not notice any clots with in the drainage tubing. He is awake and alert. IMAGING: I went ahead and reviewed his noncontrast CT on the PACS system. The right kidney is sligh tly hydronephrotic compared to the left. The ureter appears dilated all the way down to the bladder. The Whitt catheter is in an appropriate location. There is thickening of the bladder wall as well as some extraneous material within the bladder which I would suspect would be clot. LABORATORY: His serum creatinine has ranged between 2.1 and 3.1 since his admission. His urine culture is normal.
[2017-10-14] MEDS: Insulin Glargine 300 UNITS/3 ML PEN 22 UNITS SC (21:17)
[2017-10-14] MEDS: Atorvastatin 40 MG TAB 80 MG PO (21:17)
--- NOTE | 2017-10-14 22:21 | NCONE_ITS ---
DATE OF CONSULTATION: October 14, 2017 ASSESSMENT AND PLAN: Mr. Panchal is a 71-year-old, right-handed man with a history of right hemispheric stroke who now has had two episodes that seem consistent with seizure in my opinion. I recommend he continue Keppra 500 mg b.i.d. and agree with further workup with a brain MRI without contrast. Otherwise, on exam he was found to have questionable left homonomous hemianopsia. I recommend repeat testing when he is less tired which may elicit different results. His prior stroke would not account for these findings and it is certainly worrisome for a new stroke which the brain MRI will also be helpful with. He should continue aspirin for the time being. He should follow up in the Neurologic Clinic in the next four weeks. Please call with any further questions or concerns. Thank you for this consult. REFERRING PHYSICIAN: Isak Magana M.D. REASON FOR CONSULTATION: I was asked to see Mr. Panchal in neurologic consultation by Dr. Magana for seizure. HISTORY OF PRESENT ILLNESS: Mr. Panchal is a 71-year-old, right-handed man with a past medical history of hypertension, hyperlipidemia, type 2 diabetes, and a right hemispheric stroke in 2009 manifested by left hemiparesis. He was admitted on 10/12/17 after two weeks of dysuria and more recent urinary retention. He was found to have a urinary tract infection with mild increased renal insufficiency. His baseline creatinine is 1.6 and it was found to be 2.1 on admission. He also had an elevated white blood cell count of 13.91. A Whitt catheter was placed which resulted in drainage of a large volume of urine as well as gross hematuria. A CT of his abdomen and pelvis showed mild right hydronephrosis and hydroureter. He was also noted to have an enlarged prostate and an acute clot in the bladder. He was admitted for pain control and aspirin was held. On the morning of 10/13/17 at approximately 7:18 a.m., Mr. Panchal suffered an acute confusional and unresponsive episode with reported eye deviation that resolved after several minutes. He underwent a stat CT head which showed no acute process. Per my review he has a posterior fossa arachnoid cyst, an old right centrum semiovale infarct, as well as extensive white matter changes. Aspirin was restarted. Later that afternoon, at approximately 3:45 p.m., he had another unresponsive episode. He was described to have his eyes rolled back. His left arm was extended and the wrist was flexed. He was noted to have rhythmic left leg movements. The symptoms lasted less than five minutes and resolved without any medications. This seemed to be very consistent with seizure. We made the decision to load him with 1000 mg of Keppra and then start him on 500 mg b.i.d. maintenance. He has not had any further seizure episodes since then. He has remained somewhat confused which was attributed to his acute illness which, per the Hospitalist team, seems to be improving since admission. He has no prior history of seizures that he is aware of though he noted to the hospitalist he may have had a seizure at the time of his stroke. Review from the notes from his stroke in March 2010 show an acute infarct in the right mina radiata manifested by left hemiparesis for which he was started on aspirin. There was no mention of seizure in the note. The MRI at that time showed, in addition to the acute infarct, an old infarct in the right internal capsule with extensive white matter disease both supra and infratentorial. He has no family history of seizures. He denies any prior history of head injuries where he could have lost consciousness. He underwent an EEG earlier today which showed only mild encephalopathy. He has an MRI of the brain that is pending. PAST MEDICAL HISTORY: 1. Hypertension. 2. Hyperlipidemia. 3. Stroke in the right mina radiata manifested by mild left hemiparesis. 4. Type 2 diabetes. 5. BPH. 6. GERD. 7. Nephrolithiasis. 8. Oswald's esophagus. 9. Depression and anxiety. PAST SURGICAL HISTORY: 1. Penile prosthesis. 2. Left eye laser surgery. FAMILY HISTORY: No strokes or seizures. SOCIAL HISTORY: He is . 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 He lives with his son. He quit smoking in the past. Alcohol intake is unknown. HOME MEDICATIONS: As per chart. ALLERGIES: No known drug allergies. REVIEW OF SYSTEMS: CONSTITUTIONAL: Denies tiredness or fatigue. HEENT: Denies blurry vision or double vision. CARDIOVASCULAR: Denies chest pains or rapid heartbeat. RESPIRATORY: Denies wheezing or cough. GI: Denies nausea or vomiting. : Denies urinary frequency. Positive urinary retention. MUSCULOSKELETAL: Denies joint or back pain. NEURO: Denies headaches or swallowing problems. PSYCH: Denies depression or tendency to cry. ALLERGIES/IMMUNOLOGY: Denies runny nose or rash. PHYSICAL EXAM: VITAL SIGNS: T-max 37.0. Pulse 90-99. Blood pressure 135-144/56-72. Respiratory rate 15-20. Saturation 93-97% on room air. GENERAL: The patient is of apparent stated age, in no apparent distress. He is somewhat sleepy. HEAD/FACE: No facial or cranial nerve abnormalities. NECK: Supple. No meningismus. No occipital tenderness. CARDIOVASCULAR: Regular rate and rhythm. RESPIRATORY: Clear to auscultation bilaterally. ABDOMEN: Soft, slightly tender, nondistended, positive bowel sounds. EXTREMITIES: No edema. No clubbing or cyanosis. No bony deformity. NEUROLOGIC EXAM: Language - fluency, naming, repetition, and comprehensive intact. Mental status - he was awake and alert. He was able to recall one out of three objects on delayed recall. Somewhat disoriented to time. Speech - no dysarthria. Cranial nerves: Cranial nerve II - visual field testing was somewhat difficult. It was suggestive of a left homonomous hemianopsia but I cannot rule out a more general visual disturbance though he denies any history of cataracts or other vision impairment beyond his current glasses. Cranial nerves III, IV, and - extraocular movements intact, no nystagmus, pupils symmetric and reactive to light. Cranial nerve V - face sensation intact to pinprick. Cranial nerve VII - no facial asymmetry noted. Cranial nerve VIII - hearing intact bilaterally. Cranial nerves IX and X - palate rises symmetrically. Cranial nerve XI - trapezius 5/5 bilaterally. Cranial nerve XII - protrudes tongue symmetrically. Sensory - sensation intact to pinprick in the bilateral upper extremities, slightly reduced below the knee bilaterally. Motor - bulk and tone intact. Fine motor movements reduced on the left with a left pronator drift. Strength 5/5 throughout. Reflexes - hyporeflexic throughout. He had a left Babinski. Right toe was downgoing. Coordination - no ataxia. Gait - deferred.
[2017-10-15] VITALS (35 sets, daily range): BP systolic 98–179; BP diastolic 50–106; PULSE 89–118; RESP 7–32; TEMP 36.6–37.2; O2SAT 93
[2017-10-15] MEDS: Normal Saline 1,000 ML 100 ML IV ×2 (04:38→16:59)
[2017-10-15 07:12] LABS: Abs Immature Grans 0.01 k/cumm (0.0-0.09); Absolute Basophil Count 0.02 k/cumm (0.0-0.2); Absolute Eosinophil Count 0.32 k/cumm (0.0-0.7); Absolute Lymphocyte Count 1.45 k/cumm (1.2-3.4); Absolute Monocyte Count 0.63 k/cumm (0.11-0.7); Basophils % 0.2; Eosinophils % 3.5; HCT 36.9 % (40.0-50.0); HGB 12.3 g/dL (13.5-17.5); Immature Grans % 0.1; Lymphocytes % 16.1; Mean Corp. HGB Concentration 33.3 g/dL (32.0-36.0); Mean Corpuscular Hemoglobin 31.1 pg (27.0-33.0); Mean Corpuscular Volume 93.2 fL (80-95); Mean Platelet Volume 10.8 fL (8.0-11.0); Neutrophils % 73.1; Platelet Count 277 x1000/uL (130-400); RBC 3.96 m/cumm (4.50-6.00); White Blood Cell Count 9.03 k/cumm (4.4-10.8)
[2017-10-15 07:21] LABS: Anion Gap 11.2 mmol/L (3-11); BUN 40 mg/dL (7-18); CO2 23.8 mmol/L (21.0-32.0); CREATININE 1.84 mg/dL (0.70-1.30); Calcium 8.1 mg/dL (8.5-10.1); Chloride 109 mmol/L (98-107); Estimated GFR 36.34 (mL/min/1.73m2); Glucose 212 mg/dL (70-100); Sodium 144 mmol/L (136-145)
[2017-10-15] MEDS: Omeprazole 20 MG CAPCR 40 MG PO ×2 (08:26→17:06)
[2017-10-15] MEDS: Aspirin 81 MG CHEW PO (09:14)
[2017-10-15] MEDS: Hydrochlorothiazide 25 MG TAB PO (09:14)
[2017-10-15] MEDS: Multivitamin TAB 1 TAB PO (09:14)
[2017-10-15] MEDS: Sertraline 50 MG TAB 100 MG PO (09:14)
[2017-10-15] MEDS: Insulin Aspart 300 UNITS/3 ML PEN SC ×3 (09:14→17:10)
[2017-10-15] MEDS: Tamsulosin 0.4 MG CAPCR PO (09:14)
[2017-10-15] MEDS: Losartan 50 MG TAB PO (09:29)
--- NOTE | 2017-10-15 11:03 | PDOC.PROG ---
Date of Service: 10/15/17 Time of Service: 11:03 Assessment/Plan - Assessment/Plan (1) Urinary retention Assessment: I discussed case with Dr. Cooney. Concern for bladder cancer. Still deciding on comfort with procedure here or in higher level of care given that Mr. Panchal may need general anesthesia if needs extensive bladder resection. For now, try flushing clots if continues to get spasms as these may represent obstructing clots. (2) Diabetes type 2, controlled Assessment: Blood sugars high now that eating. Still on much lower than outpatient insulin doses, will titrate up lantus and contniue sliding scale. (3) Cerebrovascular disease Assessment: MRI still pending. I d/w Dr. Ybarra. She also noted left hemianopsia, unclear if new. She agrees he likely had seizure and will continue keppra. Mental status overall back to baseline. Would benefit from PT after procedure. (4) Renal insufficiency Assessment: Improved, Cr getting down close to baseline. Continue to follow. History of Present Illness - History of Present Illness Chief Complaint: urine retention History of Present Illness: 24hr: Seen by Dr. Cooney, plans cystoscopy, but may need resection of mass so considering anesthesia risk Seen by neurology. No new neurologic events Feeling better, but still feels general fatigue/weakness. No focal weakness. No chest pain or SOB. Still getting spasms of pain in bladder but no pain currently. Review of Systems - Review of Systems Constitutional: denies: Fever, Chills Respiratory: denies: Cough, Shortness of Breath Cardiovascular: denies: Chest Pain, Palpitations Gastrointestinal: denies: Nausea, Vomiting, Abdominal Pain, Diarrhea, Constipation Genitourinary: denies: Dysuria Skin: denies: Rash Neurological: denies: Confusion, Seizures - Medications/Allergies Allergies/Adverse Reactions: Allergies Allergy/AdvReac Type Severity Reaction Status Date / Time No Known Allergies Allergy Unverified 10/12/17 17:27 Medications: Current Medications Albuterol Sulfate (Proventil Updraft) 2.5 mg UPD Q4H PRN PRN Aspirin () 81 mg PO DAILY [facility] Last Admin: 10/15/17 09:14 Dose: 81 mg Atorvastatin Calcium (Lipitor) 80 mg PO HS [facility]ASHAWN Last Admin: 10/14/17 21:17 Dose: 80 mg Dextrose (Insta-Glucose) 0 gm PO DIRECTED PRN Dextrose/Water () 0 gm IVP DIRECTED PRN Dimethicone/Zinc Oxide (Arabella Protect Cream) 0 gm TP PRN PRN Flavoxate HCl (Urispas) 100 mg PO TID [facility] Last Admin: 10/15/17 09:13 Dose: 100 mg Hydrochlorothiazide (Hydrodiuril) 25 mg PO DAILY [facility] Last Admin: 10/15/17 09:14 Dose: 25 mg Sodium Chloride (Saline 1000ml Bag) 1,000 mls @ 100 mls/hr IV INFUSION [facility] Last Admin: 10/15/17 04:38 Dose: 100 mls/hr Levetiracetam 500 mg/ Sodium (Chloride) 105 mls @ 400 mls/hr IVPB Q12H [facility] Last Admin: 10/15/17 04:07 Dose: 400 mls/hr IV Miscellaneous Supplies () 1 each IV DIRECTED [facility] Insulin Aspart (Novolog Flexpen) 0 units SC 0800,1200,1700 [facility] PRN Reason: Protocol Last Admin: 10/15/17 09:14 Dose: 4 units Insulin Glargine (Lantus Solostar) 30 units SC [facility] Lorazepam (Ativan) 1 mg PO DAILY PRN PRN PRN Reason: Anxiety Losartan Potassium (Cozaar) 50 mg PO DAILY [facility] Last Admin: 10/15/17 09:29 Dose: 50 mg Morphine Sulfate () 2 - 4 mg IVP Q4H PRN PRN PRN Reason: Pain Last Admin: 10/14/17 21:16 Dose: 4 mg Multivitamins () 1 tab PO DAILY [facility] Last Admin: 10/15/17 09:14 Dose: 1 tab Omeprazole (Prilosec) 40 mg PO BID [facility] Last Admin: 10/15/17 08:26 Dose: 40 mg Ondansetron HCl (Zofran Injection) 4 mg IVP Q4H PRN PRN Sertraline HCl (Zoloft) 100 mg PO DAILY [facility] Last Admin: 10/15/17 09:14 Dose: 100 mg Sodium Chloride (Saline Flush 10 Ml Syringe) 0 ml IVP PRN PRN Last Admin: 10/14/17 08:33 Dose: 20 ml Tamsulosin HCl (Flomax) 0.4 mg PO DAILY [facility] Last Admin: 06/22/18 09:14 Dose: 0.4 mg Tiotropium [place] (Spiriva Handihaler) 1 cap IH DAILY [facility] Last Admin: 10/15/17 08:36 Dose: 1 cap Objective - Exam Vitals and I&O: Vital Signs Temp 35.6 C L 10/14/17 23:05 Pulse 102 H 10/15/17 06:01 Resp 16 10/15/17 06:01 BP 148/60 10/15/17 06:01 Pulse Ox 94 L 10/14/17 20:05 Intake & Output 10/14/17 10/14/17 10/15/17 11:59 23:59 11:59 Intake Total 1665 3042 747 Output Total 840 1650 750 Balance 825 1392 -3 Weight 103.7 kg 107.6 kg Intake: IV 825 1792 697 Oral 840 1250 50 Output: Urine 840 1650 750 Other: Urine Color Dark Red Dark Red Gomez Urine Appearance Hematuria Hematuria Cloudy Sediment Comment Pt has vicente catheter in place with bright red bloody clots and bladder spasms. Vicente irrigation PRN if needed. Vicente in place. Vicente in place. General: Alert, Oriented x3, Cooperative HEENT: Mucous membr. moist/pink Lungs: Clear to auscultation. denies: Normal air movement (diffusely deminished) Cardiovascular: Regular rate, Normal S1, Normal S2 Abdomen: Normal bowel sounds, Soft. denies: Tenderness Extremities: Edema (trace verito). denies: Cyanosis, Tenderness/swelling Skin: denies: Rashes Neurological: Other (speech and slight left hemiparesis about baseline) Psych/Mental Status: Mental status NL - Results Results: Laboratory Results WBC 9.03 k/cumm (4.4-10.8) 10/15/17 06:30 RBC 3.96 m/cumm (4.50-6.00) L 10/15/17 06:30 Hgb 12.3 g/dL (13.5-17.5) L 10/15/17 06:30 Hct 36.9 % (40.0-50.0) L 10/15/17 06:30 MCV 93.2 fL (80-95) 10/15/17 06:30 MCH 31.1 pg (27.0-33.0) 10/15/17 06:30 MCHC 33.3 g/dL (32.0-36.0) 10/15/17 06:30 RDW 14.0 % (11.8-14.1) 10/15/17 06:30 Plt Count 277 x1000/uL (130-400) 10/15/17 06:30 MPV 10.8 fL (8.0-11.0) 10/15/17 06:30 Immature Gran % 0.1 10/15/17 06:30 Neutrophils % 73.1 10/15/17 06:30 Lymphocytes % 16.1 10/15/17 06:30 Monocytes % 7.0 10/15/17 06:30 Eosinophils % 3.5 10/15/17 06:30 Basophils % 0.2 10/15/17 06:30 Absolute Neutrophils 6.60 k/cumm (1.2-6.7) 10/15/17 06:30 Absolute Lymphocytes 1.45 k/cumm (1.2-3.4) 10/15/17 06:30 Absolute Monocytes 0.63 k/cumm (0.11-0.7) 10/15/17 06:30 Absolute Eosinophils 0.32 k/cumm (0.0-0.7) 10/15/17 06:30 Absolute Basophils 0.02 k/cumm (0.0-0.2) 10/15/17 06:30 PT 10.4 sec (9.3-10.8) 10/13/17 07:25 INR 1.1 (1.0-3.5) 10/13/17 07:25 Sodium 144 mmol/L (136-145) 10/15/17 06:30 Potassium 4.0 mmol/L (3.5-5.1) 10/15/17 06:30 Chloride 109 mmol/L (98-107) H 10/15/17 06:30 Carbon Dioxide 23.8 mmol/L (21.0-32.0) 10/15/17 06:30 Anion Gap 11.2 mmol/L (3-11) H 10/15/17 06:30 BUN 40 mg/dL (7-18) H D 10/15/17 06:30 Creatinine 1.84 mg/dL (0.70-1.30) H 10/15/17 06:30 Estimated GFR/1.73 m2 36.34 (mL/min/1.73m2) 10/15/17 06:30 Glucose 212 mg/dL (70-100) H 10/15/17 06:30 Calcium 8.1 mg/dL (8.5-10.1) L 10/15/17 06:30 Magnesium 2.1 mg/dL (1.8-2.4) 10/14/17 06:20 Total Bilirubin 0.7 mg/dL (0.2-1.0) 10/13/17 07:25 AST 19 U/L (15-37) 10/13/17 07:25 ALT 25 U/L (12-78) 10/13/17 07:25 Alkaline Phosphatase 132 U/L (46-116) H 10/13/17 07:25 Troponin I < 0.02 ng/mL (0.00-0.06) 10/13/17 11:30 Total Protein 6.7 g/dL (6.4-8.2) 10/13/17 07:25 Albumin 2.8 g/dL (3.4-5.0) L 10/13/17 07:25 Urine Color Yellow (Yellow) 10/12/17 15:20 Urine Clarity Sl cloudy 10/12/17 15:20 Urine pH 6.0 (5-8) 10/12/17 15:20 Ur Specific [place] 1.025 (1.005-1.025) 10/12/17 15:20 Urine Protein >=300 mg/dL (Negative) H 10/12/17 15:20 Urine Ketones Negative mg/dL (Negative) 10/12/17 15:20 Urine Blood Large (Negative) H 10/12/17 15:20 Urine Nitrite Positive (Negative) H 10/12/17 15:20 Urine Bilirubin Negative (Negative) 10/12/17 15:20 Urine Urobilinogen 0.2 EU/dL (Up TO 0.2) 10/12/17 15:20 Ur Leukocyte Esterase Trace (Negative) H 10/12/17 15:20 Urine RBC >50 (0-2) H 10/12/17 15:20 Urine WBC >50 HPF (0-5) 10/12/17 15:20 Ur Epithelial Cells Negative HPF (Negative) 10/12/17 15:20 Urine Crystals Negative HPF (Negative) 10/12/17 15:20 Urine Bacteria Many HPF (Negative) 10/12/17 15:20 Urine Casts Negative LPF (Negative) 10/12/17 15:20 Urine Mucus Negative (Negative) 10/12/17 15:20 Ur Culture Indicated? Yes 10/12/17 15:20 Urine Glucose 250 mg/dL (Negative) H 10/12/17 15:20 Patient ABO/Rh A Positive 10/13/17 07:25 Antibody Screen Negative 10/13/17 07:25
--- NOTE | 2017-10-15 11:06 | PDOC.PROG_ITS ---
Date of Service: 10/15/17 Time of Service: 11:03 Assessment/Plan - Assessment/Plan (1) Urinary retention Assessment: I discussed case with Dr. Cooney. Concern for bladder cancer. Still deciding on comfort with procedure here or in higher level of care given that Mr. Panchal may need general anesthesia if needs extensive bladder resection. For now, try flushing clots if continues to get spasms as these may represent obstructing clots. (2) Diabetes type 2, controlled Assessment: Blood sugars high now that eating. Still on much lower than outpatient insulin doses, will titrate up lantus and contniue sliding scale. (3) Cerebrovascular disease Assessment: MRI still pending. I d/w Dr. Ybarra. She also noted left hemianopsia, unclear if new. She agrees he likely had seizure and will continue keppra. Mental status overall back to baseline. Would benefit from PT after procedure. (4) Renal insufficiency Assessment: Improved, Cr getting down close to baseline. Continue to follow. History of Present Illness - History of Present Illness Chief Complaint: urine retention History of Present Illness: 24hr: Seen by Dr. Cooney, plans cystoscopy, but may need resection of mass so considering anesthesia risk Seen by neurology. No new neurologic events Feeling better, but still feels general fatigue/weakness. No focal weakness. No chest pain or SOB. Still getting spasms of pain in bladder but no pain currently. Review of Systems - Review of Systems Constitutional: denies: Fever, Chills Respiratory: denies: Cough, Shortness of Breath Cardiovascular: denies: Chest Pain, Palpitations Gastrointestinal: denies: Nausea, Vomiting, Abdominal Pain, Diarrhea, Constipation Genitourinary: denies: Dysuria Skin: denies: Rash Neurological: denies: Confusion, Seizures - Medications/Allergies Allergies/Adverse Reactions: Allergies Allergy/AdvReac Type Severity Reaction Status Date / Time No Known Allergies Allergy Unverified 10/12/17 17:27 Medications: Current Medications Albuterol Sulfate (Proventil Updraft) 2.5 mg UPD Q4H PRN PRN Aspirin () 81 mg PO DAILY [facility] Last Admin: 10/15/17 09:14 Dose: 81 mg Atorvastatin Calcium (Lipitor) 80 mg PO HS [facility] Last Admin: 10/14/17 21:17 Dose: 80 mg Dextrose (Insta-Glucose) 0 gm PO DIRECTED PRN Dextrose/Water () 0 gm IVP DIRECTED PRN Dimethicone/Zinc Oxide (Arabella Protect Cream) 0 gm TP PRN PRN Flavoxate HCl (Urispas) 100 mg PO TID [facility] Last Admin: 10/15/17 09:13 Dose: 100 mg Hydrochlorothiazide (Hydrodiuril) 25 mg PO DAILY [facility] Last Admin: 10/15/17 09:14 Dose: 25 mg Sodium Chloride (Saline 1000ml Bag) 1,000 mls @ 100 mls/hr IV INFUSION [facility] Last Admin: 10/15/17 04:38 Dose: 100 mls/hr Levetiracetam 500 mg/ Sodium (Chloride) 105 mls @ 400 mls/hr IVPB Q12H [facility] Last Admin: 10/15/17 04:07 Dose: 400 mls/hr IV Miscellaneous Supplies () 1 each IV DIRECTED [facility] Insulin Aspart (Novolog Flexpen) 0 units SC 0800,1200,1700 [facility] PRN Reason: Protocol Last Admin: 10/15/17 09:14 Dose: 4 units Insulin Glargine (Lantus Solostar) [address] [facility] Lorazepam (Ativan) 1 mg PO DAILY PRN PRN PRN Reason: Anxiety Losartan Potassium (Cozaar) 50 mg PO DAILY [facility] Last Admin: 10/15/17 09:29 Dose: 50 mg Morphine Sulfate () 2 - 4 mg IVP Q4H PRN PRN PRN Reason: Pain Last Admin: 10/14/17 21:16 Dose: 4 mg Multivitamins () 1 tab PO DAILY [facility] Last Admin: 10/15/17 09:14 Dose: 1 tab Omeprazole (Prilosec) 40 mg PO BID [facility] Last Admin: 10/15/17 08:26 Dose: 40 mg Ondansetron HCl (Zofran Injection) 4 mg IVP Q4H PRN PRN Sertraline HCl (Zoloft) 100 mg PO DAILY [facility] Last Admin: 10/15/17 09:14 Dose: 100 mg Sodium Chloride (Saline Flush 10 Ml Syringe) 0 ml IVP PRN PRN Last Admin: 10/14/17 08:33 Dose: 20 ml Tamsulosin HCl (Flomax) 0.4 mg PO DAILY [facility] Last Admin: 06/22/18 09:14 Dose: 0.4 mg Tiotropium [place] (Spiriva Handihaler) 1 cap IH DAILY [facility] Last Admin: 10/15/17 08:36 Dose: 1 cap Objective - Exam Vitals and I&O: Vital Signs Temp 35.6 C L 10/14/17 23:05 Pulse 102 H 10/15/17 06:01 Resp 16 10/15/17 06:01 BP 148/60 10/15/17 06:01 Pulse Ox 94 L 10/14/17 20:05 Intake & Output 10/14/17 10/14/17 10/15/17 11:59 23:59 11:59 Intake Total 1665 3042 747 Output Total 840 1650 750 Balance 825 1392 -3 Weight 103.7 kg 107.6 kg Intake: IV 825 1792 697 Oral 840 1250 50 Output: Urine 840 1650 750 Other: Urine Color Dark Red Dark Red [place] Urine Appearance Hematuria Hematuria Cloudy Sediment Comment Pt has vicente catheter in place with bright red bloody clots and bladder spasms. Vicente irrigation PRN if needed. Vicente in place. Vicente in place. General: Alert, Oriented x3, Cooperative HEENT: Mucous membr. moist/pink Lungs: Clear to auscultation. denies: Normal air movement (diffusely deminished ) Cardiovascular: Regular rate, Normal S1, Normal S2 Abdomen: Normal bowel sounds, Soft. denies: Tenderness Extremities: Edema (trace veirto). denies: Cyanosis, Tenderness/swelling Skin: denies: Rashes Neurological: Other (speech and slight left hemiparesis about baseline) Psych/Mental Status: Mental status NL - Results Results: Laboratory Results WBC 9.03 k/cumm (4.4-10.8) 10/15/17 06:30 RBC 3.96 m/cumm (4.50-6.00) L 10/15/17 06:30 Hgb 12.3 g/dL (13.5-17.5) L 10/15/17 06:30 Hct 36.9 % (40.0-50.0) L 10/15/17 06:30 MCV 93.2 fL (80-95) 10/15/17 06:30 MCH 31.1 pg (27.0-33.0) 10/15/17 06:30 MCHC 33.3 g/dL (32.0-36.0) 10/15/17 06:30 RDW 14.0 % (11.8-14.1) 10/15/17 06:30 Plt Count 277 x1000/uL (130-400) 10/15/17 06:30 MPV 10.8 fL (8.0-11.0) 10/15/17 06:30 Immature Gran % 0.1 10/15/17 06:30 Neutrophils % 73.1 10/15/17 06:30 Lymphocytes % 16.1 10/15/17 06:30 Monocytes % 7.0 10/15/17 06:30 Eosinophils % 3.5 10/15/17 06:30 Basophils % 0.2 10/15/17 06:30 Absolute Neutrophils 6.60 k/cumm (1.2-6.7) 10/15/17 06:30 Absolute Lymphocytes 1.45 k/cumm (1.2-3.4) 10/15/17 06:30 Absolute Monocytes 0.63 k/cumm (0.11-0.7) 10/15/17 06:30 Absolute Eosinophils 0.32 k/cumm (0.0-0.7) 10/15/17 06:30 Absolute Basophils 0.02 k/cumm (0.0-0.2) 10/15/17 06:30 PT 10.4 sec (9.3-10.8) 10/13/17 07:25 INR 1.1 (1.0-3.5) 10/13/17 07:25 Sodium 144 mmol/L (136-145) 10/15/17 06:30 Potassium 4.0 mmol/L (3.5-5.1) 10/15/17 06:30 Chloride 109 mmol/L (98-107) H 10/15/17 06:30 Carbon Dioxide 23.8 mmol/L (21.0-32.0) 10/15/17 06:30 Anion Gap 11.2 mmol/L (3-11) H 10/15/17 06:30 BUN 40 mg/dL (7-18) H D 10/15/17 06:30 Creatinine 1.84 mg/dL (0.70-1.30) H 10/15/17 06:30 Estimated GFR/1.73 m2 36.34 (mL/min/1.73m2) 10/15/17 06:30 Glucose 212 mg/dL (70-100) H 10/15/17 06:30 Calcium 8.1 mg/dL (8.5-10.1) L 10/15/17 06:30 Magnesium 2.1 mg/dL (1.8-2.4) 10/14/17 06:20 Total Bilirubin 0.7 mg/dL (0.2-1.0) 10/13/17 07:25 AST 19 U/L (15-37) 10/13/17 07:25 ALT 25 U/L (12-78) 10/13/17 07:25 Alkaline Phosphatase 132 U/L (46-116) H 10/13/17 07:25 Troponin I < 0.02 ng/mL (0.00-0.06) 10/13/17 11:30 Total Protein 6.7 g/dL (6.4-8.2) 10/13/17 07:25 Albumin 2.8 g/dL (3.4-5.0) L 10/13/17 07:25 Urine Color Yellow (Yellow) 10/12/17 15:20 Urine Clarity Sl cloudy 10/12/17 15:20 Urine pH 6.0 (5-8) 10/12/17 15:20 Ur Specific [place] 1.025 (1.005-1.025) 10/12/17 15:20 Urine Protein >=300 mg/dL (Negative) H 10/12/17 15:20 Urine Ketones Negative mg/dL (Negative) 10/12/17 15:20 Urine Blood Large (Negative) H 10/12/17 15:20 Urine Nitrite Positive (Negative) H 10/12/17 15:20 Urine Bilirubin Negative (Negative) 10/12/17 15:20 Urine Urobilinogen 0.2 EU/dL (Up TO 0.2) 10/12/17 15:20 Ur Leukocyte Esterase Trace (Negative) H 10/12/17 15:20 Urine RBC >50 (0-2) H 10/12/17 15:20 Urine WBC >50 HPF (0-5) 10/12/17 15:20 Ur Epithelial Cells Negative HPF (Negative) 10/12/17 15:20 Urine Crystals Negative HPF (Negative) 10/12/17 15:20 Urine Bacteria Many HPF (Negative) 10/12/17 15:20 Urine Casts Negative LPF (Negative) 10/12/17 15:20 Urine Mucus Negative (Negative) 10/12/17 15:20 Ur Culture Indicated? Yes 10/12/17 15:20 Urine Glucose 250 mg/dL (Negative) H 10/12/17 15:20 Patient ABO/Rh A Positive 10/13/17 07:25 Antibody Screen Negative 10/13/17 07:25
[2017-10-15] MEDS: LORazepam 1 MG TAB PO (12:14)
--- NOTE | 2017-10-15 12:22 | PDOC.CMPRO ---
Date of Service: 10/15/17 Time of Service: 12:22 Care Management Progress Note S/O: Doroteo continues to be monitored in the ICU. Pt has improved and is lying in bed when this jingle writer visits. Pts son Hector has not visited as of yet this morning, though is local and very supportive. Pt has seen neurology and urology, at this time decision is pending in regards to a urological procedure at [facility] or if Pt needs to go to a higher level of care for procedure. Plan remains unchanged at this time. A: 71 year old male admitted to [facility] 10/13/17 for UTI, Urinary Retention P: Doroteo will discharge home when ready per MD. He will have new CHH/RN/PT/OT services and follow up with his PCP and Neurologist. He will transport via private vehicle with his son, Hector.
--- NOTE | 2017-10-15 12:25 | CMPROGNOTE_ITS ---
Date of Service: 10/15/17 Time of Service: 12:22 Care Management Progress Note S/O: Doroteo continues to be monitored in the ICU. Pt has improved and is lying in bed when this junior copywriter visits. Pts son Hector has not visited as of yet this morning, though is local and very supportive. Pt has seen neurology and urology , at this time decision is pending in regards to a urological procedure at [facility] or if Pt needs to go to a higher level of care for procedure. Plan remains unchanged at this time. A: 71 year old male admitted to [facility] 10/13/17 for UTI, Urinary Retention P: Doroteo will discharge home when ready per MD. He will have new CHH/RN/PT/OT services and follow up with his PCP and Neurologist. He will transport via private vehicle with his son, Hector.
--- NOTE | 2017-10-15 13:15 | DI.REPORT_ITS ---
SYMPTOMS/DIAGNOSIS: 71-YEAR-OLD MALE WITH H/O CEREBROVASCULAR ACCIDENT, ACUTE MENTAL STATUS, DEPRESSION AND EYE DEVIATION BRAIN MRI: Sagittal T2, axial T2, diffusion weighted axial T2 FLAIR BLADE and axial T1 and axial T2 HEMO pulse sequences were performed. Generalized atrophy is demonstrated. There is no evidence of an intra/extra-axial hemorrhage or mass. Regions of increased signal in the frontoparietal and periventricular white matter are demonstrated and would be consistent with small vessel disease. There is an apparent old right parietal lacunar infarct. The ventricles are intact. There is no evidence of restricted diffusion. The normal flow void in the cerebral vessels is intact. SUMMARY: Cerebral atrophy and small vessel disease. No evidence of a hemorrhage, or infarct or mass.
[2017-10-15] MEDS: Albuterol 2.5 MG/3 ML INH SOLN VIAL UPD (17:11)
[2017-10-15] MEDS: Atorvastatin 40 MG TAB 80 MG PO (21:08)
[2017-10-15] MEDS: Insulin Glargine 300 UNITS/3 ML PEN 30 UNITS SC (21:08)
[2017-10-16] VITALS (35 sets, daily range): BP systolic 107–188; BP diastolic 57–125; PULSE 81–111; RESP 15–30; TEMP 36.6–37; O2SAT 93–97
[2017-10-16] MEDS: Albuterol 2.5 MG/3 ML INH SOLN VIAL UPD (04:21)
[2017-10-16 07:05] LABS: Anion Gap 5.1 mmol/L (3-11); BUN 27 mg/dL (7-18); CO2 25.9 mmol/L (21.0-32.0); CREATININE 1.52 mg/dL (0.70-1.30); Calcium 7.8 mg/dL (8.5-10.1); Chloride 106 mmol/L (98-107); Estimated GFR 45.31 (mL/min/1.73m2); Glucose 225 mg/dL (70-100); Potassium 3.4 mmol/L (3.5-5.1); Sodium 137 mmol/L (136-145)
[2017-10-16] MEDS: Insulin Aspart 300 UNITS/3 ML PEN SC ×3 (08:32→16:47)
[2017-10-16] MEDS: Sertraline 50 MG TAB 100 MG PO (08:33)
[2017-10-16] MEDS: Losartan 50 MG TAB PO (08:33)
[2017-10-16] MEDS: Multivitamin TAB 1 TAB PO (08:33)
[2017-10-16] MEDS: Hydrochlorothiazide 25 MG TAB PO (08:33)
[2017-10-16] MEDS: Tamsulosin 0.4 MG CAPCR PO (08:33)
[2017-10-16] MEDS: Aspirin 81 MG CHEW PO (08:33)
[2017-10-16] MEDS: Omeprazole 20 MG CAPCR 40 MG PO ×2 (08:34→16:44)
[2017-10-16] MEDS: POTASSIUM CHLORIDE 20 MEQ, POTASSIUM CHLORIDE 10 MEQ 30 MEQ PO (12:07)
[2017-10-16] MEDS: Normal Saline 1,000 ML 100 ML IV ×2 (12:44→20:56)
--- NOTE | 2017-10-16 13:25 | PDOC.CMPRO ---
Date of Service: 10/16/17 Time of Service: 13:25 Care Management Progress Note S/O: Pt continues to be monitored in the ICU. He is lying in bed this morning, his son Hector has not been in to visit as of yet. Pt is using a cane at this time, and is a two person assist. CM to speak with Pts son Hector in regards to what this will look like at home. Previously Hector has stated that the plan is for Pt to return home with him and home health services. A: 71 year old male admitted to [facility] 10/13/17 for UTI, Urinary Retention P: Edward will discharge home when ready per MD. He will have new CHH/RN/PT/OT services and follow up with his PCP and Neurologist. He will transport via private vehicle with his son, Hector.
--- NOTE | 2017-10-16 13:29 | CMPROGNOTE_ITS ---
Date of Service: 10/16/17 Time of Service: 13:25 Care Management Progress Note S/O: Pt continues to be monitored in the ICU. He is lying in bed this morning, his son Hector has not been in to visit as of yet. Pt is using a cane at this time, and is a two person assist. CM to speak with Pts son Hector in regards to what this will look like at home. Previously Hector has stated that the plan is for Pt to return home with him and home health services. A: 71 year old male admitted to [facility] 10/13/17 for UTI, Urinary Retention P: Edward will discharge home when ready per MD. He will have new CHH/RN/PT/OT services and follow up with his PCP and Neurologist. He will transport via private vehicle with his son, Hector.
--- NOTE | 2017-10-16 18:05 | PDOC.PROG ---
Date of Service: 10/16/17 Time of Service: 18:06 Assessment/Plan - Assessment/Plan (1) Urinary retention Assessment: Failed voiding trial. Continue bladder scan and intermittent catheterization. Self teach for home catheterization at discharge. Bladder spasms have been reasonably well-controlled. (2) Bladder mass Assessment: High risk for anesthesia at our facility given his unresponsive episode, seizure disorder, history of stroke. Plan is for cystoscopy to be done at [facility]. Family is anxious to have this done as soon as possible. Continued hematuria likely related to friable bladder mass. Obvious concern for bladder malignancy. (3) Cerebrovascular disease Assessment: Left hemiparesis stable. (4) Renal insufficiency Assessment: Creatinine 1.5 to. Overall urine output is sufficient. (5) Diabetes type 2, controlled Assessment: Stable (6) Seizure disorder Assessment: Stable at this time on present meds. Continue seizure precautions. (7) Discharge planning issues Assessment: He remains a full code. Continue to monitor in acute care status. History of Present Illness - History of Present Illness Chief Complaint: Urinary retention/bladder mass/hematuria/seizures History of Present Illness: 71-year-old man who has an underlying seizure disorder who was transferred to the ICU because of an unresponsive spell. Continued left hemiparesis from a previous CVA. He had a Vicente catheter placed because of urinary retention. A bladder mass was found. Family is very concerned and want cystoscopy done as soon as possible. He had a Vicente catheter removed today. He was unable to void on his own and bladder scan later revealed 700 cc postvoid residual. He was able to self cath for the first time resulting in 700 cc of blood-tinged urine with some small clots. Review of Systems - Review of Systems Constitutional: denies: Fever, Chills Respiratory: denies: Cough, Shortness of Breath Cardiovascular: denies: Chest Pain, Palpitations Gastrointestinal: denies: Nausea, Vomiting, Abdominal Pain Genitourinary: Retention - Medications/Allergies Allergies/Adverse Reactions: Allergies Allergy/AdvReac Type Severity Reaction Status Date / Time No Known Allergies Allergy Unverified 10/12/17 17:27 Medications: Current Medications Albuterol Sulfate (Proventil Updraft) 2.5 mg UPD Q4H PRN PRN Last Admin: 10/16/17 04:21 Dose: 2.5 mg Aspirin () 81 mg PO DAILY [facility] Last Admin: 10/16/17 08:33 Dose: 81 mg Atorvastatin Calcium (Lipitor) 80 mg PO HS [facility] Last Admin: 10/15/17 21:08 Dose: 80 mg Dextrose (Insta-Glucose) 0 gm PO DIRECTED PRN Dextrose/Water () 0 gm IVP DIRECTED PRN Dimethicone/Zinc Oxide (Arabella Protect Cream) 0 gm TP PRN PRN Flavoxate HCl (Urispas) 100 mg PO TID [facility] Last Admin: 10/16/17 13:04 Dose: 100 mg Hydrochlorothiazide (Hydrodiuril) 25 mg PO DAILY [facility] Last Admin: 10/16/17 08:33 Dose: 25 mg Sodium Chloride (Saline 1000ml Bag) 1,000 mls @ 100 mls/hr IV INFUSION [facility] Last Admin: 10/16/17 12:44 Dose: 100 mls/hr IV Miscellaneous Supplies () 1 each IV DIRECTED [facility] Insulin Aspart (Novolog Flexpen) 0 units SC 0800,1200,1700 [facility] PRN Reason: Protocol Last Admin: 10/16/17 16:47 Dose: 6 units Insulin Glargine (Lantus Solostar) 30 units SC HS [facility] Last Admin: 10/15/17 21:08 Dose: 30 units Levetiracetam (Keppra) 500 mg PO BID [facility] Last Admin: 10/16/17 08:33 Dose: 500 mg Lorazepam (Ativan) 1 mg PO DAILY PRN PRN PRN Reason: Anxiety Last Admin: 10/15/17 12:14 Dose: 1 mg Losartan Potassium (Cozaar) 50 mg PO DAILY [facility] Last Admin: 10/16/17 08:33 Dose: 50 mg Morphine Sulfate () 2 - 4 mg IVP Q4H PRN PRN PRN Reason: Pain Last Admin: 10/14/17 21:16 Dose: 4 mg Multivitamins () 1 tab PO DAILY [facility] Last Admin: 10/16/17 08:33 Dose: 1 tab Omeprazole (Prilosec) 40 mg PO BID [facility] Last Admin: 10/16/17 16:44 Dose: 40 mg Ondansetron HCl (Zofran Injection) 4 mg IVP Q4H PRN PRN Sertraline HCl (Zoloft) 100 mg PO DAILY [facility] Last Admin: 10/16/17 08:33 Dose: 100 mg Sodium Chloride (Saline Flush 10 Ml Syringe) 0 ml IVP PRN PRN Last Admin: 10/14/17 08:33 Dose: 20 ml Tamsulosin HCl (Flomax) 0.4 mg PO DAILY [facility] Last Admin: 10/16/17 08:33 Dose: 0.4 mg Tiotropium [place] (Spiriva Handihaler) 1 cap IH DAILY [facility] Last Admin: 10/16/17 10:22 Dose: 1 cap Objective - Exam Vitals and I&O: Vital Signs Temp 37.0 C 10/16/17 15:30 Pulse 102 H 10/16/17 17:00 Resp 22 10/16/17 17:01 BP 140/79 10/16/17 17:00 Pulse Ox 93 L 10/16/17 15:30 Intake & Output 10/15/17 10/16/17 10/16/17 23:59 11:59 23:59 Intake Total 1213 2357 1328 Output Total 1050 2125 Balance 122 533 7160 Weight 109.7 kg Intake: IV 713 1517 848 Oral 500 840 480 Output: Urine 1050 2125 Other: Urine Color Dark Red [place] Bright Red Urine Appearance Hematuria Clear Clots Comment Pt experiencing bladder spasms, once catheter is irrigated the pain from the spasms goes away. Vicente removed per MD orders at 0920. No void following vicente removal. Will check bladder scan after lunch. pt sat on commode and voided only about 30cc's. pt did self cath with nurse cueing him and voided 700cc's of red urine Stool Occult Blood Negative Negative Stool Size Large Moderate Stool Characteristics Soft Soft Liquid Liquid Brown General: Alert, Cooperative, No acute distress Lungs: Clear to auscultation Cardiovascular: Regular rate Abdomen: denies: Tenderness, Masses Extremities: denies: Clubbing, Cyanosis Skin: denies: Rashes Psych/Mental Status: Other (Quiet demeanor, cooperative) - Results Results: Laboratory Results WBC 9.03 k/cumm (4.4-10.8) 10/15/17 06:30 RBC 3.96 m/cumm (4.50-6.00) L 10/15/17 06:30 Hgb 12.3 g/dL (13.5-17.5) L 10/15/17 06:30 Hct 36.9 % (40.0-50.0) L 10/15/17 06:30 MCV 93.2 fL (80-95) 10/15/17 06:30 MCH 31.1 pg (27.0-33.0) 10/15/17 06:30 MCHC 33.3 g/dL (32.0-36.0) 10/15/17 06:30 RDW 14.0 % (11.8-14.1) 10/15/17 06:30 Plt Count 277 x1000/uL (130-400) 10/15/17 06:30 MPV 10.8 fL (8.0-11.0) 10/15/17 06:30 Immature Gran % 0.1 10/15/17 06:30 Neutrophils % 73.1 10/15/17 06:30 Lymphocytes % 16.1 10/15/17 06:30 Monocytes % 7.0 10/15/17 06:30 Eosinophils % 3.5 10/15/17 06:30 Basophils % 0.2 10/15/17 06:30 Absolute Neutrophils 6.60 k/cumm (1.2-6.7) 10/15/17 06:30 Absolute Lymphocytes 1.45 k/cumm (1.2-3.4) 10/15/17 06:30 Absolute Monocytes 0.63 k/cumm (0.11-0.7) 10/15/17 06:30 Absolute Eosinophils 0.32 k/cumm (0.0-0.7) 10/15/17 06:30 Absolute Basophils 0.02 k/cumm (0.0-0.2) 10/15/17 06:30 PT 10.4 sec (9.3-10.8) 10/13/17 07:25 INR 1.1 (1.0-3.5) 10/13/17 07:25 Sodium 137 mmol/L (136-145) 10/16/17 06:25 Potassium 3.4 mmol/L (3.5-5.1) L 10/16/17 06:25 Chloride 106 mmol/L (98-107) 10/16/17 06:25 Carbon Dioxide 25.9 mmol/L (21.0-32.0) 10/16/17 06:25 Anion Gap 5.1 mmol/L (3-11) 10/16/17 06:25 BUN 27 mg/dL (7-18) H D 10/16/17 06:25 Creatinine 1.52 mg/dL (0.70-1.30) H 10/16/17 06:25 Estimated GFR/1.73 m2 45.31 (mL/min/1.73m2) 10/16/17 06:25 Glucose 225 mg/dL (70-100) H 10/16/17 06:25 Calcium 7.8 mg/dL (8.5-10.1) L 10/16/17 06:25 Magnesium 2.1 mg/dL (1.8-2.4) 10/14/17 06:20 Total Bilirubin 0.7 mg/dL (0.2-1.0) 10/13/17 07:25 AST 19 U/L (15-37) 10/13/17 07:25 ALT 25 U/L (12-78) 10/13/17 07:25 Alkaline Phosphatase 132 U/L (46-116) H 10/13/17 07:25 Troponin I < 0.02 ng/mL (0.00-0.06) 10/13/17 11:30 Total Protein 6.7 g/dL (6.4-8.2) 10/13/17 07:25 Albumin 2.8 g/dL (3.4-5.0) L 10/13/17 07:25 Urine Color Yellow (Yellow) 10/12/17 15:20 Urine Clarity Sl cloudy 10/12/17 15:20 Urine pH 6.0 (5-8) 10/12/17 15:20 Ur Specific [place] 1.025 (1.005-1.025) 10/12/17 15:20 Urine Protein >=300 mg/dL (Negative) H 10/12/17 15:20 Urine Ketones Negative mg/dL (Negative) 10/12/17 15:20 Urine Blood Large (Negative) H 10/12/17 15:20 Urine Nitrite Positive (Negative) H 10/12/17 15:20 Urine Bilirubin Negative (Negative) 10/12/17 15:20 Urine Urobilinogen 0.2 EU/dL (Up TO 0.2) 10/12/17 15:20 Ur Leukocyte Esterase Trace (Negative) H 10/12/17 15:20 Urine RBC >50 (0-2) H 10/12/17 15:20 Urine WBC >50 HPF (0-5) 10/12/17 15:20 Ur Epithelial Cells Negative HPF (Negative) 10/12/17 15:20 Urine Crystals Negative HPF (Negative) 10/12/17 15:20 Urine Bacteria Many HPF (Negative) 10/12/17 15:20 Urine Casts Negative LPF (Negative) 10/12/17 15:20 Urine Mucus Negative (Negative) 10/12/17 15:20 Ur Culture Indicated? Yes 10/12/17 15:20 Urine Glucose 250 mg/dL (Negative) H 10/12/17 15:20 Patient ABO/Rh A Positive 10/13/17 07:25 Antibody Screen Negative 10/13/17 07:25
--- NOTE | 2017-10-16 18:08 | PDOC.PROG_ITS ---
Date of Service: 10/16/17 Time of Service: 18:06 Assessment/Plan - Assessment/Plan (1) Urinary retention Assessment: Failed voiding trial. Continue bladder scan and intermittent catheterization. Self teach for home catheterization at discharge. Bladder spasms have been reasonably well-controlled. (2) Bladder mass Assessment: High risk for anesthesia at our facility given his unresponsive episode, seizure disorder, history of stroke. Plan is for cystoscopy to be done at [facility]. Family is anxious to have this done as soon as possible. Continued hematuria likely related to friable bladder mass. Obvious concern for bladder malignancy. (3) Cerebrovascular disease Assessment: Left hemiparesis stable. (4) Renal insufficiency Assessment: Creatinine 1.5 to. Overall urine output is sufficient. (5) Diabetes type 2, controlled Assessment: Stable (6) Seizure disorder Assessment: Stable at this time on present meds. Continue seizure precautions. (7) Discharge planning issues Assessment: He remains a full code. Continue to monitor in acute care status. History of Present Illness - History of Present Illness Chief Complaint: Urinary retention/bladder mass/hematuria/seizures History of Present Illness: 71-year-old man who has an underlying seizure disorder who was transferred to the ICU because of an unresponsive spell. Continued left hemiparesis from a previous CVA. He had a Vicente catheter placed because of urinary retention. A bladder mass was found. Family is very concerned and want cystoscopy done as soon as possible. He had a Vicente catheter removed today. He was unable to void on his own and bladder scan later revealed 700 cc postvoid residual. He was able to self cath for the first time resulting in 700 cc of blood-tinged urine with some small clots. Review of Systems - Review of Systems Constitutional: denies: Fever, Chills Respiratory: denies: Cough, Shortness of Breath Cardiovascular: denies: Chest Pain, Palpitations Gastrointestinal: denies: Nausea, Vomiting, Abdominal Pain Genitourinary: Retention - Medications/Allergies Allergies/Adverse Reactions: Allergies Allergy/AdvReac Type Severity Reaction Status Date / Time No Known Allergies Allergy Unverified 10/12/17 17:27 Medications: Current Medications Albuterol Sulfate (Proventil Updraft) 2.5 mg UPD Q4H PRN PRN Last Admin: 10/16/17 04:21 Dose: 2.5 mg Aspirin () 81 mg PO DAILY LASHAWN Last Admin: 10/16/17 08:33 Dose: 81 mg Atorvastatin Calcium (Lipitor) 80 mg PO HS [facility] Last Admin: 10/15/17 21:08 Dose: 80 mg Dextrose (Insta-Glucose) 0 gm PO DIRECTED PRN Dextrose/Water () 0 gm IVP DIRECTED PRN Dimethicone/Zinc Oxide (Arabella Protect Cream) 0 gm TP PRN PRN Flavoxate HCl (Urispas) 100 mg PO TID [facility] Last Admin: 10/16/17 13:04 Dose: 100 mg Hydrochlorothiazide (Hydrodiuril) 25 mg PO DAILY [facility] Last Admin: 10/16/17 08:33 Dose: 25 mg Sodium Chloride (Saline 1000ml Bag) 1,000 mls @ 100 mls/hr IV INFUSION [facility] Last Admin: 10/16/17 12:44 Dose: 100 mls/hr IV Miscellaneous Supplies () 1 each IV DIRECTED [facility] Insulin Aspart (Novolog Flexpen) 0 units SC 0800,1200,1700 [facility] PRN Reason: Protocol Last Admin: 10/16/17 16:47 Dose: 6 units Insulin Glargine (Lantus Solostar) 30 units SC HS [facility] Last Admin: 10/15/17 21:08 Dose: 30 units Levetiracetam (Keppra) 500 mg PO BID [facility] Last Admin: 10/16/17 08:33 Dose: 500 mg Lorazepam (Ativan) 1 mg PO DAILY PRN PRN PRN Reason: Anxiety Last Admin: 10/15/17 12:14 Dose: 1 mg Losartan Potassium (Cozaar) 50 mg PO DAILY [facility] Last Admin: 10/16/17 08:33 Dose: 50 mg Morphine Sulfate () 2 - 4 mg IVP Q4H PRN PRN PRN Reason: Pain Last Admin: 10/14/17 21:16 Dose: 4 mg Multivitamins () 1 tab PO DAILY [facility] Last Admin: 10/16/17 08:33 Dose: 1 tab Omeprazole (Prilosec) 40 mg PO BID AC [facility] Last Admin: 10/16/17 16:44 Dose: 40 mg Ondansetron HCl (Zofran Injection) 4 mg IVP Q4H PRN PRN Sertraline HCl (Zoloft) 100 mg PO DAILY [facility] Last Admin: 10/16/17 08:33 Dose: 100 mg Sodium Chloride (Saline Flush 10 Ml Syringe) 0 ml IVP PRN PRN Last Admin: 10/14/17 08:33 Dose: 20 ml Tamsulosin HCl (Flomax) 0.4 mg PO DAILY [facility] Last Admin: 10/16/17 08:33 Dose: 0.4 mg Tiotropium [place] (Spiriva Handihaler) 1 cap IH DAILY [facility] Last Admin: 10/16/17 10:22 Dose: 1 cap Objective - Exam Vitals and I&O: Vital Signs Temp 37.0 C 10/16/17 15:30 Pulse 102 H 10/16/17 17:00 Resp 22 10/16/17 17:01 BP 140/79 10/16/17 17:00 Pulse Ox 93 L 10/16/17 15:30 Intake & Output 10/15/17 10/16/17 10/16/17 23:59 11:59 23:59 Intake Total 1213 2357 1328 Output Total 1050 2125 Balance 075 487 7786 Weight 109.7 kg Intake: IV 713 1517 848 Oral 500 840 480 Output: Urine 1050 2125 Other: Urine Color Dark [place] Bright Red Urine Appearance Hematuria Clear Clots Comment Pt experiencing bladder spasms, once catheter is irrigated the pain from the spasms goes away. Vicente removed per MD orders at 0920. No void following vicente removal. Will check bladder scan after lunch. pt sat on commode and voided only about 30cc's. pt did self cath with nurse cueing him and voided 700cc's of red urine Stool Occult Blood Negative Negative Stool Size Large Moderate Stool Characteristics Soft Soft Liquid Liquid Brown General: Alert, Cooperative, No acute distress Lungs: Clear to auscultation Cardiovascular: Regular rate Abdomen: denies: Tenderness, Masses Extremities: denies: Clubbing, Cyanosis Skin: denies: Rashes Psych/Mental Status: Other (Quiet demeanor, cooperative) - Results Results: Laboratory Results WBC 9.03 k/cumm (4.4-10.8) 10/15/17 06:30 RBC 3.96 m/cumm (4.50-6.00) L 10/15/17 06:30 Hgb 12.3 g/dL (13.5-17.5) L 10/15/17 06:30 Hct 36.9 % (40.0-50.0) L 10/15/17 06:30 MCV 93.2 fL (80-95) 10/15/17 06:30 MCH 31.1 pg (27.0-33.0) 10/15/17 06:30 MCHC 33.3 g/dL (32.0-36.0) 10/15/17 06:30 RDW 14.0 % (11.8-14.1) 10/15/17 06:30 Plt Count 277 x1000/uL (130-400) 10/15/17 06:30 MPV 10.8 fL (8.0-11.0) 10/15/17 06:30 Immature Gran % 0.1 10/15/17 06:30 Neutrophils % 73.1 10/15/17 06:30 Lymphocytes % 16.1 10/15/17 06:30 Monocytes % 7.0 10/15/17 06:30 Eosinophils % 3.5 10/15/17 06:30 Basophils % 0.2 10/15/17 06:30 Absolute Neutrophils 6.60 k/cumm (1.2-6.7) 10/15/17 06:30 Absolute Lymphocytes 1.45 k/cumm (1.2-3.4) 10/15/17 06:30 Absolute Monocytes 0.63 k/cumm (0.11-0.7) 10/15/17 06:30 Absolute Eosinophils 0.32 k/cumm (0.0-0.7) 10/15/17 06:30 Absolute Basophils 0.02 k/cumm (0.0-0.2) 10/15/17 06:30 PT 10.4 sec (9.3-10.8) 10/13/17 07:25 INR 1.1 (1.0-3.5) 10/13/17 07:25 Sodium 137 mmol/L (136-145) 10/16/17 06:25 Potassium 3.4 mmol/L (3.5-5.1) L 10/16/17 06:25 Chloride 106 mmol/L (98-107) 10/16/17 06:25 Carbon Dioxide 25.9 mmol/L (21.0-32.0) 10/16/17 06:25 Anion Gap 5.1 mmol/L (3-11) 10/16/17 06:25 BUN 27 mg/dL (7-18) H D 10/16/17 06:25 Creatinine 1.52 mg/dL (0.70-1.30) H 10/16/17 06:25 Estimated GFR/1.73 m2 45.31 (mL/min/1.73m2) 10/16/17 06:25 Glucose 225 mg/dL (70-100) H 10/16/17 06:25 Calcium 7.8 mg/dL (8.5-10.1) L 10/16/17 06:25 Magnesium 2.1 mg/dL (1.8-2.4) 10/14/17 06:20 Total Bilirubin 0.7 mg/dL (0.2-1.0) 10/13/17 07:25 AST 19 U/L (15-37) 10/13/17 07:25 ALT 25 U/L (12-78) 10/13/17 07:25 Alkaline Phosphatase 132 U/L (46-116) H 10/13/17 07:25 Troponin I < 0.02 ng/mL (0.00-0.06) 10/13/17 11:30 Total Protein 6.7 g/dL (6.4-8.2) 10/13/17 07:25 Albumin 2.8 g/dL (3.4-5.0) L 10/13/17 07:25 Urine Color Yellow (Yellow) 10/12/17 15:20 Urine Clarity Sl cloudy 10/12/17 15:20 Urine pH 6.0 (5-8) 10/12/17 15:20 Ur Specific [place] 1.025 (1.005-1.025) 10/12/17 15:20 Urine Protein >=300 mg/dL (Negative) H 10/12/17 15:20 Urine Ketones Negative mg/dL (Negative) 10/12/17 15:20 Urine Blood Large (Negative) H 10/12/17 15:20 Urine Nitrite Positive (Negative) H 10/12/17 15:20 Urine Bilirubin Negative (Negative) 10/12/17 15:20 Urine Urobilinogen 0.2 EU/dL (Up TO 0.2) 10/12/17 15:20 Ur Leukocyte Esterase Trace (Negative) H 10/12/17 15:20 Urine RBC >50 (0-2) H 10/12/17 15:20 Urine WBC >50 HPF (0-5) 10/12/17 15:20 Ur Epithelial Cells Negative HPF (Negative) 10/12/17 15:20 Urine Crystals Negative HPF (Negative) 10/12/17 15:20 Urine Bacteria Many HPF (Negative) 10/12/17 15:20 Urine Casts Negative LPF (Negative) 10/12/17 15:20 Urine Mucus Negative (Negative) 10/12/17 15:20 Ur Culture Indicated? Yes 10/12/17 15:20 Urine Glucose 250 mg/dL (Negative) H 10/12/17 15:20 Patient ABO/Rh A Positive 10/13/17 07:25 Antibody Screen Negative 10/13/17 07:25
[2017-10-16] MEDS: Insulin Glargine 300 UNITS/3 ML PEN 30 UNITS SC (20:56)
[2017-10-16] MEDS: Atorvastatin 40 MG TAB 80 MG PO (21:00)
[2017-10-16] MEDS: LORazepam 1 MG TAB PO (21:40)
--- NOTE | 2017-10-16 21:46 | NUR.NOTE ---
Nursing Note: patient now does not know where he is and was just seen trying to climb oob to go take a shower. Pt had no idea where he was or what time it was. Pt re-oriented
[2017-10-17] VITALS (22 sets, daily range): BP systolic 104–176; BP diastolic 52–101; PULSE 79–114; RESP 8–28; TEMP 36.7–37.1; O2SAT 94–97
--- NOTE | 2017-10-17 01:48 | NUR.NOTE ---
Nursing Note: Patient continually trying to climb OOB. Got recliner, helped patient to recliner. He rested in chair for about 20-30 minutes with feet up, then tried climbing out of chair with feet still up. He doesn't appear to have any fear of falling or becoming injured, and its almost as if he doesn't recognize the threat of injury from trying to climb out of the bed/chair. He is unable to tell me what he wants, and it seems as if he does not know himself. He is alert and oriented to self and place.
[2017-10-17] MEDS: Normal Saline Flush 10 ML SYR IVP ×2 (04:07→08:08)
[2017-10-17] MEDS: Albuterol 2.5 MG/3 ML INH SOLN VIAL UPD (06:09)
[2017-10-17] MEDS: Insulin Aspart 300 UNITS/3 ML PEN SC ×3 (08:08→17:10)
[2017-10-17] MEDS: Losartan 50 MG TAB PO (08:09)
[2017-10-17] MEDS: Normal Saline 1,000 ML 100 ML IV (08:09)
[2017-10-17] MEDS: Omeprazole 20 MG CAPCR 40 MG PO ×2 (08:09→17:09)
[2017-10-17] MEDS: Aspirin 81 MG CHEW PO (08:09)
[2017-10-17] MEDS: Multivitamin TAB 1 TAB PO (08:09)
[2017-10-17] MEDS: Sertraline 50 MG TAB 100 MG PO (08:09)
[2017-10-17] MEDS: Hydrochlorothiazide 25 MG TAB PO (08:09)
[2017-10-17] MEDS: Tamsulosin 0.4 MG CAPCR PO (08:09)
[2017-10-17] MEDS: Lidocaine 2% Jelly 11 ML SYR (11:38)
--- NOTE | 2017-10-17 14:26 | PDOC.CMPRO ---
Date of Service: 10/17/17 Time of Service: 14:26 Care Management Progress Note S/O: Pt continues to be monitored in the ICU. He is lying in bed this morning, his family has been in throughout the day and are supportive. Doroteo continues to need straight catheterizations, which will most likely need to be done in the home. Doroteo will have new home health services once he goes home, his son Hector resides with him and is a support. A: 71 year old male admitted to [facility] 10/13/17 for UTI, Urinary Retention P: Doroteo will discharge home when ready per MD. He will have new CHH/RN/PT/OT services and follow up with his PCP and Neurologist. He will transport via private vehicle with his son, Hector.
--- NOTE | 2017-10-17 14:29 | CMPROGNOTE_ITS ---
Date of Service: 10/17/17 Time of Service: 14:26 Care Management Progress Note S/O: Pt continues to be monitored in the ICU. He is lying in bed this morning, his family has been in throughout the day and are supportive. Doroteo continues to need straight catheterizations, which will most likely need to be done in the home. Doroteo will have new home health services once he goes home, his son Hector resides with him and is a support. A: 71 year old male admitted to [facility] 10/13/17 for UTI, Urinary Retention P: Doroteo will discharge home when ready per MD. He will have new CHH/RN/PT/OT services and follow up with his PCP and Neurologist. He will transport via private vehicle with his son, Hector.
--- NOTE | 2017-10-17 16:36 | PDOC.PROG_ITS ---
Date of Service: 10/17/17 Time of Service: 16:34 Assessment/Plan - Assessment/Plan (1) Urinary retention Assessment: Failed voiding trial. Intermittent catheterization difficult due to enlarged prostate, poor patient participation. Vicente catheter reinserted. (2) Bladder mass Assessment: Plan is to make a referral to [facility] urology in the a.m. for cystoscopy, possible TURBT. (3) Cerebrovascular disease Assessment: Continued left-sided deficits unchanged (4) Renal insufficiency Assessment: Recheck labs in the a.m. Urine output has been adequate. (5) Diabetes type 2, controlled Assessment: Blood sugars have been running somewhat high. (6) Seizure disorder Assessment: Continues on Keppra. No further seizures. (7) Discharge planning issues Assessment: Remains a full code. Transferred out of ICU to [facility] today. Possible discharge home tomorrow with outpatient follow-up with urology and neurology. History of Present Illness - History of Present Illness Chief Complaint: Urinary retention/unresponsive episode History of Present Illness: Patient was monitored in the ICU overnight. He had an extremely restless night. He received his Lorazepam during the night because of anxiety issues. This morning he was markedly sedated and could not participate in his straight cath procedure. He has continued to require intermittent straight cath for urinary drainage. He has not been able to void on his own at all. The Vicente catheter was replaced today. Family members continue to be concerned that his cystoscopy is being delayed. We again went over the nonurgent nature of this and proper referrals will be made tomorrow morning. His son states that he could not take care of him at home in his present condition. Review of Systems - Review of Systems Constitutional: Weakness, Malaise. denies: Fever, Chills Respiratory: denies: Cough, Shortness of Breath Cardiovascular: denies: Chest Pain, Palpitations Gastrointestinal: denies: Nausea, Vomiting, Abdominal Pain Genitourinary: Retention Skin: denies: Rash, Lesions Neurological: Weakness (Left side) - Medications/Allergies Allergies/Adverse Reactions: Allergies Allergy/AdvReac Type Severity Reaction Status Date / Time No Known Allergies Allergy Unverified 10/12/17 17:27 Medications: Current Medications Albuterol Sulfate (Proventil Updraft) 2.5 mg UPD Q4H PRN PRN Last Admin: 10/17/17 06:09 Dose: 2.5 mg Aspirin () 81 mg PO DAILY [facility] Last Admin: 10/17/17 08:09 Dose: 81 mg Atorvastatin Calcium (Lipitor) 80 mg PO HS [facility] Last Admin: 10/16/17 21:00 Dose: 80 mg Dextrose (Insta-Glucose) 0 gm PO DIRECTED PRN Dextrose/Water () 0 gm IVP DIRECTED PRN Dimethicone/Zinc Oxide (Arabella Protect Cream) 0 gm TP PRN PRN Flavoxate HCl (Urispas) 100 mg PO TID [facility] Last Admin: 10/17/17 13:06 Dose: 100 mg Hydrochlorothiazide (Hydrodiuril) 25 mg PO DAILY [facility] Last Admin: 10/17/17 08:09 Dose: 25 mg IV Miscellaneous Supplies () 1 each IV DIRECTED [facility] Insulin Aspart (Novolog Flexpen) 0 units SC 0800,1200,1700 [facility] PRN Reason: Protocol Last Admin: 10/17/17 11:57 Dose: 8 units Insulin Glargine (Lantus Solostar) 30 units SC [facility] Last Admin: 10/16/17 20:56 Dose: 30 units Levetiracetam (Keppra) 500 mg PO BID [facility] Last Admin: 10/17/17 08:09 Dose: 500 mg Losartan Potassium (Cozaar) 50 mg PO DAILY [facility] Last Admin: 10/17/17 08:09 Dose: 50 mg Multivitamins () 1 tab PO DAILY [facility] Last Admin: 10/17/17 08:09 Dose: 1 tab Omeprazole (Prilosec) 40 mg PO BID AC [facility] Last Admin: 10/17/17 08:09 Dose: 40 mg Ondansetron HCl (Zofran Injection) 4 mg IVP Q4H PRN PRN Sertraline HCl (Zoloft) 100 mg PO DAILY [facility] Last Admin: 10/17/17 08:09 Dose: 100 mg Sodium Chloride (Saline Flush 10 Ml Syringe) 0 ml IVP PRN PRN Last Admin: 10/17/17 08:08 Dose: 10 ml Tamsulosin HCl (Flomax) 0.4 mg PO DAILY [facility] Last Admin: 10/17/17 08:09 Dose: 0.4 mg Tiotropium [place] (Spiriva Handihaler) 1 cap IH DAILY [facility] Last Admin: 10/17/17 08:59 Dose: 1 cap Objective - Exam Vitals and I&O: Vital Signs Temp 36.7 C 10/17/17 15:59 Pulse 91 H 10/17/17 15:59 Resp 18 10/17/17 15:59 BP 174/85 10/17/17 15:59 Pulse Ox 94 L 10/17/17 15:59 Intake & Output 10/16/17 10/17/17 10/17/17 23:59 11:59 23:59 Intake Total 2591 2651 300 Output Total 1400 2465 500 Balance 1191 186 -200 Weight 106.2 kg Intake: IV 1571 2091 Oral 1020 560 300 Output: Urine 1400 1115 500 Post Void Residual 1350 Other: Urine Color Dark Red Light Kirstin Light K[place]in [place] Urine Appearance Clots Clear Hematuria Comment Patient has not attempted voiding yet this shift. Pt unable to void on own, requiring catheterization. After discussion with son and doctor, it was determined that pt will have vicente placed, as he is unable to sufficiently monitor and self cath self at this time. Stool Occult Blood Negative Negative Negative Stool Size Small Moderate Small Stool Characteristics Soft Soft Soft Brown Brown Brown General: No acute distress. denies: Alert (Sedated, minimally responsive to conversation. Later observed feeding himself, appetite excellent.) Lungs: Clear to auscultation Cardiovascular: Regular rate Abdomen: Soft. denies: Tenderness Extremities: denies: Edema Skin: denies: Rashes Neurological: denies: Normal gait (Very weak requiring max assist to reposition) Psych/Mental Status: denies: Mental status NL (Markedly sedated and not interactive) - Results Results: Laboratory Results WBC 9.03 k/cumm (4.4-10.8) 10/15/17 06:30 RBC 3.96 m/cumm (4.50-6.00) L 10/15/17 06:30 Hgb 12.3 g/dL (13.5-17.5) L 10/15/17 06:30 Hct 36.9 % (40.0-50.0) L 10/15/17 06:30 MCV 93.2 fL (80-95) 10/15/17 06:30 MCH 31.1 pg (27.0-33.0) 10/15/17 06:30 MCHC 33.3 g/dL (32.0-36.0) 10/15/17 06:30 RDW 14.0 % (11.8-14.1) 10/15/17 06:30 Plt Count 277 x1000/uL (130-400) 10/15/17 06:30 MPV 10.8 fL (8.0-11.0) 10/15/17 06:30 Immature Gran % 0.1 10/15/17 06:30 Neutrophils % 73.1 10/15/17 06:30 Lymphocytes % 16.1 10/15/17 06:30 Monocytes % 7.0 10/15/17 06:30 Eosinophils % 3.5 10/15/17 06:30 Basophils % 0.2 10/15/17 06:30 Absolute Neutrophils 6.60 k/cumm (1.2-6.7) 10/15/17 06:30 Absolute Lymphocytes 1.45 k/cumm (1.2-3.4) 10/15/17 06:30 Absolute Monocytes 0.63 k/cumm (0.11-0.7) 10/15/17 06:30 Absolute Eosinophils 0.32 k/cumm (0.0-0.7) 10/15/17 06:30 Absolute Basophils 0.02 k/cumm (0.0-0.2) 10/15/17 06:30 PT 10.4 sec (9.3-10.8) 10/13/17 07:25 INR 1.1 (1.0-3.5) 10/13/17 07:25 Sodium 137 mmol/L (136-145) 10/16/17 06:25 Potassium 3.4 mmol/L (3.5-5.1) L 10/16/17 06:25 Chloride 106 mmol/L (98-107) 10/16/17 06:25 Carbon Dioxide 25.9 mmol/L (21.0-32.0) 10/16/17 06:25 Anion Gap 5.1 mmol/L (3-11) 10/16/17 06:25 BUN 27 mg/dL (7-18) H D 10/16/17 06:25 Creatinine 1.52 mg/dL (0.70-1.30) H 10/16/17 06:25 Estimated GFR/1.73 m2 45.31 (mL/min/1.73m2) 10/16/17 06:25 Glucose 225 mg/dL (70-100) H 10/16/17 06:25 Calcium 7.8 mg/dL (8.5-10.1) L 10/16/17 06:25 Magnesium 2.1 mg/dL (1.8-2.4) 10/14/17 06:20 Total Bilirubin 0.7 mg/dL (0.2-1.0) 10/13/17 07:25 AST 19 U/L (15-37) 10/13/17 07:25 ALT 25 U/L (12-78) 10/13/17 07:25 Alkaline Phosphatase 132 U/L (46-116) H 10/13/17 07:25 Troponin I < 0.02 ng/mL (0.00-0.06) 10/13/17 11:30 Total Protein 6.7 g/dL (6.4-8.2) 10/13/17 07:25 Albumin 2.8 g/dL (3.4-5.0) L 10/13/17 07:25 Urine Color Yellow (Yellow) 10/12/17 15:20 Urine Clarity Sl cloudy 10/12/17 15:20 Urine pH 6.0 (5-8) 10/12/17 15:20 Ur Specific [place] 1.025 (1.005-1.025) 10/12/17 15:20 Urine Protein >=300 mg/dL (Negative) H 10/12/17 15:20 Urine Ketones Negative mg/dL (Negative) 10/12/17 15:20 Urine Blood Large (Negative) H 10/12/17 15:20 Urine Nitrite Positive (Negative) H 10/12/17 15:20 Urine Bilirubin Negative (Negative) 10/12/17 15:20 Urine Urobilinogen 0.2 EU/dL (Up TO 0.2) 10/12/17 15:20 Ur Leukocyte Esterase Trace (Negative) H 10/12/17 15:20 Urine RBC >50 (0-2) H 10/12/17 15:20 Urine WBC >50 HPF (0-5) 10/12/17 15:20 Ur Epithelial Cells Negative HPF (Negative) 10/12/17 15:20 Urine Crystals Negative HPF (Negative) 10/12/17 15:20 Urine Bacteria Many HPF (Negative) 10/12/17 15:20 Urine Casts Negative LPF (Negative) 10/12/17 15:20 Urine Mucus Negative (Negative) 10/12/17 15:20 Ur Culture Indicated? Yes 10/12/17 15:20 Urine Glucose 250 mg/dL (Negative) H 10/12/17 15:20 Patient ABO/Rh A Positive 10/13/17 07:25 Antibody Screen Negative 10/13/17 07:25
[2017-10-17] MEDS: Insulin Glargine 300 UNITS/3 ML PEN 30 UNITS SC (19:52)
[2017-10-17] MEDS: Atorvastatin 40 MG TAB 80 MG PO (19:53)
[2017-10-18] MEDS: Acetaminophen 325 MG TAB 650 MG PO (01:02)
[2017-10-18 07:03] LABS: Abs Immature Grans 0.01 k/cumm (0.0-0.09); Absolute Basophil Count 0.02 k/cumm (0.0-0.2); Absolute Eosinophil Count 0.33 k/cumm (0.0-0.7); Absolute Lymphocyte Count 1.51 k/cumm (1.2-3.4); Absolute Neutrophil Count 4.71 k/cumm (1.2-6.7); Basophils % 0.3; Eosinophils % 4.7; HCT 35.1 % (40.0-50.0); HGB 12.2 g/dL (13.5-17.5); Immature Grans % 0.1; Lymphocytes % 21.3; Mean Corp. HGB Concentration 34.8 g/dL (32.0-36.0); Mean Corpuscular Hemoglobin 31.2 pg (27.0-33.0); Mean Corpuscular Volume 89.8 fL (80-95); Mean Platelet Volume 10.3 fL (8.0-11.0); Monocytes % 7.1; Neutrophils % 66.5; Platelet Count 302 x1000/uL (130-400); RBC 3.91 m/cumm (4.50-6.00); RBC Distribution Width 13.2 % (11.8-14.1); White Blood Cell Count 7.08 k/cumm (4.4-10.8)
[2017-10-18 07:08] LABS: Anion Gap 9.3 mmol/L (3-11); BUN 22 mg/dL (7-18); CO2 25.7 mmol/L (21.0-32.0); CREATININE 1.68 mg/dL (0.70-1.30); Calcium 8.4 mg/dL (8.5-10.1); Chloride 105 mmol/L (98-107); Estimated GFR 40.36 (mL/min/1.73m2); Glucose 274 mg/dL (70-100); Potassium 4.1 mmol/L (3.5-5.1); Sodium 140 mmol/L (136-145)
[2017-10-18 07:30] VITALS: BP 175/90; PULSE 90; RESP 18; TEMP 36.3; O2SAT 95
[2017-10-18] MEDS: Insulin Aspart 300 UNITS/3 ML PEN SC ×2 (08:02→12:16)
[2017-10-18] MEDS: Normal Saline Flush 10 ML SYR IVP (08:02)
[2017-10-18] MEDS: Omeprazole 20 MG CAPCR 40 MG PO (08:03)
[2017-10-18] MEDS: Aspirin 81 MG CHEW PO (08:04)
[2017-10-18] MEDS: Hydrochlorothiazide 25 MG TAB PO (08:04)
[2017-10-18] MEDS: Multivitamin TAB 1 TAB PO (08:04)
[2017-10-18] MEDS: Losartan 50 MG TAB PO (08:04)
[2017-10-18] MEDS: Tamsulosin 0.4 MG CAPCR PO (08:04)
[2017-10-18] MEDS: Sertraline 50 MG TAB 100 MG PO (09:33)
--- NOTE | 2017-10-18 14:26 | PDOC.CMDIS ---
Date of Service: 10/18/17 Time of Service: 14:26 LACE Index Scoring Tool - Questions: Length of Stay (in days): 4 - 6 Acuity (Admit via E.D.?): Yes Comorbidities: Diabetes w/o Complication E.D. Visits: 1 - Answers: Total Score: 9 Risk of Readmission: Low Risk Care Management Discharge Reason for Hospitalization: UTI Discharge Plan: CM received notification from Dr. Leija that Pt and his family are interested in SNF placement. CM spoke with Pt and his family whom state that they are interested in [facility]. CM faxed referral and spoke with Elif, [facility], whom is accepting Pt. REECE notified DONNELL Dahl, of acceptance, and Pt will DC at 1500 via private vehicle with his ex . REECE notified Toshia, wheel shop supervisor, of time and mode transport. REECE spoke with Pt whom is happy about acceptance to [facility]. Patient/Family Education Needs: Review DC instructions, any limitations, and discuss Ask Me Three Services Needed at Discharge: Care Home Facility ([facility])
--- NOTE | 2017-10-18 14:35 | PDOC.DISCH_ITS ---
Discharge - Discharge Orders Referrals: Nicolle Lombardo MD [ [facility] STAFF PHYSICIAN] - 10/25/17 8:45 am - Discharge Plan Disposition: [facility] ([facility] Condition: Improving Diet:: Carb Counting Equipment/Supplies:: No Equipment Needed Activity:: Activity as Tolerated - Instructions Micromedex Instructions: Urinary Retention in Men (GEN)
--- NOTE | 2017-10-18 15:38 | NUR.NOTE ---
Nursing Note: Patient is discharged to health and rehab. Prior to leaving the patient was given the opportunity to ask questions Home med sent with patient. He leaves the floor with family to take him to the rehab shortly after 3 pm
--- NOTE | 2017-10-18 16:31 | PDOC.DCSUM ---
Date of Service: 10/18/17 Time of Service: 16:31 This is a 71-year-old man admitted acutely on 10/13/2017 with urinary retention. He had a distended lower abdomen he required a Whitt catheter to drain his urine. 600 cc of blood tinged urine was produced. He was treated empirically for urinary tract infection awaiting culture results. In the emergency room he had a CT scan renal colic protocol which showed a right hydronephrosis and hydroureter and a mass in the bladder consistent with clot. There was presumption that there was a mass that was causing obstruction. Cystoscopy was recommended. He saw Dr. Cooney in urology consultation. He agreed that cystoscopy was indicated but in consultation with anesthesia it was felt he would be high risk because of an underlying seizure disorder, previous stroke. Patient had an unresponsive episode requiring transfer to the ICU. It was presumed he had a seizure. An EEG was done that did not show any focal abnormalities. A head CT was done that was negative he had an MRI that was also negative. Dr. Ramirez from neurology recommended Keppra. He was given a loading dose and started on 500 mg twice daily. He had no further seizure activity during this admission. He was mobilized and was getting around using a cane and 4 wheeled walker though not very steady on his feet. He had a voiding trial on 10/16 to 10/17/2017. He was unable to void on his own he required straight cath several times each time draining about 700 cc of blood-tinged urine. The Whitt catheter was replaced in the afternoon of 10/17/2017. He is discharged with a Whitt catheter in anticipation of further urology consultation. An urgent urology consultation was requested from [facility]. Information was transmitted and copied and faxed to urology at [facility], Dr. Marie. That appointment is pending at the time of discharge. Dr. Ramirez agreed to see him back in follow-up as an outpatient. Her office is expected to call him with a follow-up appointment. Discussion ensued about further disposition. He lives at home with his son but his son is away at work much of the day. Given the situation with new onset seizures continued left-sided weakness and now an indwelling Whitt catheter it was decided he would be better served in a rehab facility. He elected to go to [facility] and rehab for short-term rehabilitation. All Active Problems Bladder mass (Acute) Cerebrovascular disease (Acute) Diabetes type 2, controlled (Acute) Discharge planning issues (Acute) Mental status alteration (Acute) Renal insufficiency (Acute) Seizure disorder (Acute) Urinary retention (Acute) Aspirin 81 mg PO DAILY 02/08/15 Glipizide 5 mg PO DAILY 02/08/15 Hydrochlorothiazide 25 mg PO DAILY 02/08/15 Insulin Aspart [NovoLOG Flexpen] 20 unit SQ AC 02/08/15 Insulin Glargine [Lantus Solostar] 45 units SQ BID 02/08/15 Losartan Potassium 50 mg PO DAILY 02/08/15 Multivitamin [Multivitamins] 1 tab PO DAILY 02/08/15 Sertraline [Zoloft] 100 mg PO DAILY 02/08/15 Tamsulosin [Flomax] 0.4 mg PO DAILY 02/08/15 Tiotropium [place] [Spiriva] 1 cap IH DAILY 02/08/15 Omeprazole 40 mg PO BID #60 tab-cap 08/14/16 Atorvastatin [Lipitor] 80 mg PO HS 10/12/17 Atorvastatin [Lipitor] 80 mg PO HS tab 10/18/17 Flavoxate HCl [Urispas] 100 mg PO TID tablet 10/18/17 Insulin Aspart [NovoLOG Flexpen] 0 units SC 0800,1200,1700 pen 10/18/17 LevETIRAcetam [Keppra] 500 mg PO BID tab 10/18/17 Omeprazole [PriLOSEC] 40 mg PO BID AC capcr 10/18/17 Allergies Allergy/AdvReac Type Severity Reaction Status Date / Time No Known Allergies Allergy Unverified 10/12/17 17:27 Laboratory Results WBC 7.08 k/cumm (4.4-10.8) 10/18/17 06:23 RBC 3.91 m/cumm (4.50-6.00) L 10/18/17 06:23 Hgb 12.2 g/dL (13.5-17.5) L 10/18/17 06:23 Hct 35.1 % (40.0-50.0) L 10/18/17 06:23 MCV 89.8 fL (80-95) 10/18/17 06:23 MCH 31.2 pg (27.0-33.0) 10/18/17 06:23 MCHC 34.8 g/dL (32.0-36.0) 10/18/17 06:23 RDW 13.2 % (11.8-14.1) 10/18/17 06:23 Plt Count 302 x1000/uL (130-400) 10/18/17 06:23 MPV 10.3 fL (8.0-11.0) 10/18/17 06:23 Immature Gran % 0.1 10/18/17 06:23 Neutrophils % 66.5 10/18/17 06:23 Lymphocytes % 21.3 10/18/17 06:23 Monocytes % 7.1 10/18/17 06: Eosinophils % 4.7 10/18/17 06:23 Basophils % 0.3 10/18/17 06:23 Absolute Neutrophils 4.71 k/cumm (1.2-6.7) 10/18/17 06:23 Absolute Lymphocytes 1.51 k/cumm (1.2-3.4) 10/18/17 06:23 Absolute Monocytes 0.50 k/cumm (0.11-0.7) 10/18/17 06:23 Absolute Eosinophils 0.33 k/cumm (0.0-0.7) 10/18/17 06:23 Absolute Basophils 0.02 k/cumm (0.0-0.2) 10/18/17 06:23 PT 10.4 sec (9.3-10.8) 10/13/17 07:25 INR 1.1 (1.0-3.5) 10/13/17 07:25 Sodium 140 mmol/L (136-145) 10/18/17 06:23 Potassium 4.1 mmol/L (3.5-5.1) D 10/18/17 06:23 Chloride 105 mmol/L (98-107) 10/18/17 06:23 Carbon Dioxide 25.7 mmol/L (21.0-32.0) 10/18/17 06:23 Anion Gap 9.3 mmol/L (3-11) 10/18/17 06:23 BUN 22 mg/dL (7-18) H 10/18/17 06:23 Creatinine 1.68 mg/dL (0.70-1.30) H 10/18/17 06:23 Estimated GFR/1.73 m2 40.36 (mL/min/1.73m2) 10/18/17 06:23 Glucose 274 mg/dL (70-100) H 10/18/17 06:23 Calcium 8.4 mg/dL (8.5-10.1) L 10/18/17 06:23 Magnesium 2.1 mg/dL (1.8-2.4) 10/14/17 06:20 Total Bilirubin 0.7 mg/dL (0.2-1.0) 10/13/17 07:25 AST 19 U/L (15-37) 10/13/17 07:25 ALT 25 U/L (12-78) 10/13/17 07:25 Alkaline Phosphatase 132 U/L (46-116) H 10/13/17 07:25 Troponin I < 0.02 ng/mL (0.00-0.06) 10/13/17 11:30 Total Protein 6.7 g/dL (6.4-8.2) 10/13/17 07:25 Albumin 2.8 g/dL (3.4-5.0) L 10/13/17 07:25 Urine Color Yellow (Yellow) 10/12/17 15:20 Urine Clarity Sl cloudy 10/12/17 15:20 Urine pH 6.0 (5-8) 10/12/17 15:20 Ur Specific [place] 1.025 (1.005-1.025) 10/12/17 15:20 Urine Protein >=300 mg/dL (Negative) H 10/12/17 15:20 Urine Ketones Negative mg/dL (Negative) 10/12/17 15:20 Urine Blood Large (Negative) H 10/12/17 15:20 Urine Nitrite Positive (Negative) H 10/12/17 15:20 Urine Bilirubin Negative (Negative) 10/12/17 15:20 Urine Urobilinogen 0.2 EU/dL (Up TO 0.2) 10/12/17 15:20 Ur Leukocyte Esterase Trace (Negative) H 10/12/17 15:20 Urine RBC >50 (0-2) H 10/12/17 15:20 Urine WBC >50 HPF (0-5) 10/12/17 15:20 Ur Epithelial Cells Negative HPF (Negative) 10/12/17 15:20 Urine Crystals Negative HPF (Negative) 10/12/17 15:20 Urine Bacteria Many HPF (Negative) 10/12/17 15:20 Urine Casts Negative LPF (Negative) 10/12/17 15:20 Urine Mucus Negative (Negative) 10/12/17 15:20 Ur Culture Indicated? Yes 10/12/17 15:20 Urine Glucose 250 mg/dL (Negative) H 10/12/17 15:20 Patient ABO/Rh A Positive 10/13/17 07:25 Antibody Screen Negative 10/13/17 07:25 Disposition: Patient is transferred to [facility] and rehab for short-term rehabilitation and nursing care. Continue indwelling Whitt catheter until seen by urology for cystoscopy. Follow-up tentatively arranged with urology at [facility]. Follow-up with neurology at [facility] also due to be arranged. CC Dr. Isak Magana CC [facility] Cc: Dr. Shonda Ramirez cc: [facility] urology Total time arranging transfer 58 minutes.
--- NOTE | 2017-10-18 16:43 | PDOC.DCSUM_ITS ---
Date of Service: 10/18/17 Time of Service: 16:31 This is a 71-year-old man admitted acutely on 10/13/2017 with urinary retention. He had a distended lower abdomen he required a Whitt catheter to drain his urine. 600 cc of blood tinged urine was produced. He was treated empirically for urinary tract infection awaiting culture results. In the emergency room he had a CT scan renal colic protocol which showed a right hydronephrosis and hydroureter and a mass in the bladder consistent with clot. There was presumption that there was a mass that was causing obstruction. Cystoscopy was recommended. He saw Dr. Cooney in urology consultation. He agreed that cystoscopy was indicated but in consultation with anesthesia it was felt he would be high risk because of an underlying seizure disorder, previous stroke. Patient had an unresponsive episode requiring transfer to the ICU. It was presumed he had a seizure. An EEG was done that did not show any focal abnormalities. A head CT was done that was negative he had an MRI that was also negative. Dr. Ramirez from neurology recommended Keppra. He was given a loading dose and started on 500 mg twice daily. He had no further seizure activity during this admission. He was mobilized and was getting around using a cane and 4 wheeled walker though not very steady on his feet. He had a voiding trial on 10/16 to 2017. He was unable to void on his own he required straight cath several times each time draining about 700 cc of blood-tinged urine. The Whitt catheter was replaced in the afternoon of 10/17/2017. He is discharged with a Whitt catheter in anticipation of further urology consultation. An urgent urology consultation was requested from [facility]. Information was transmitted and copied and faxed to urology at [facility], Dr. Marie. That appointment is pending at the time of discharge. Dr. Ramirez agreed to see him back in follow-up as an outpatient. Her office is expected to call him with a follow-up appointment. Discussion ensued about further disposition. He lives at home with his son but his son is away at work much of the day. Given the situation with new onset seizures continued left-sided weakness and now an indwelling Whitt catheter it was decided he would be better served in a rehab facility. He elected to go to [facility] and rehab for short-term rehabilitation. All Active Problems Bladder mass (Acute) Cerebrovascular disease (Acute) Diabetes type 2, controlled (Acute) Discharge planning issues (Acute) Mental status alteration (Acute) Renal insufficiency (Acute) Seizure disorder (Acute) Urinary retention (Acute) Aspirin 81 mg PO DAILY 02/08/15 Glipizide 5 mg PO DAILY 02/08/15 Hydrochlorothiazide 25 mg PO DAILY 02/08/15 Insulin Aspart [NovoLOG Flexpen] 20 unit SQ AC 02/08/15 Insulin Glargine [Lantus Solostar] 45 units SQ BID 02/08/15 Losartan Potassium 50 mg PO DAILY 02/08/15 Multivitamin [Multivitamins] 1 tab PO DAILY 02/08/15 Sertraline [Zoloft] 100 mg PO DAILY 02/08/15 Tamsulosin [Flomax] 0.4 mg PO DAILY 02/08/15 Tiotropium [place] [Spiriva] 1 cap IH DAILY 02/08/15 Omeprazole 40 mg PO BID #60 tab-cap 08/14/16 Atorvastatin [Lipitor] 80 mg PO HS 10/12/17 Atorvastatin [Lipitor] 80 mg PO HS tab 10/18/17 Flavoxate HCl [Urispas] 100 mg PO TID tablet 10/18/17 Insulin Aspart [NovoLOG Flexpen] 0 units SC 0800,1200,1700 pen 10/18/17 LevETIRAcetam [Keppra] 500 mg PO BID tab 10/18/17 Omeprazole [PriLOSEC] 40 mg PO BID AC capcr 10/18/17 Allergies Allergy/AdvReac Type Severity Reaction Status Date / Time No Known Allergies Allergy Unverified 10/12/17 17:27 Laboratory Results WBC 7.08 k/cumm (4.4-10.8) 10/18/17 06:23 RBC 3.91 m/cumm (4.50-6.00) L 10/18/17 06:23 Hgb 12.2 g/dL (13.5-17.5) L 10/18/17 06:23 Hct 35.1 % (40.0-50.0) L 10/18/17 06:23 MCV 89.8 fL (80-95) 10/18/17 06:23 MCH 31.2 pg (27.0-33.0) 10/18/17 06:23 MCHC 34.8 g/dL (32.0-36.0) 10/18/17 06:23 RDW 13.2 % (11.8-14.1) 10/18/17 06:23 Plt Count 302 x1000/uL (130-400) 10/18/17 06:23 MPV 10.3 fL (8.0-11.0) 10/18/17 06:23 Immature Gran % 0.1 10/18/17 06:23 Neutrophils % 66.5 10/18/17 06:23 Lymphocytes % 21.3 10/18/17 06:23 Monocytes % 7.1 10/18/17 06: Eosinophils % 4.7 10/18/17 06:23 Basophils % 0.3 10/18/17 06:23 Absolute Neutrophils 4.71 k/cumm (1.2-6.7) 10/18/17 06:23 Absolute Lymphocytes 1.51 k/cumm (1.2-3.4) 10/18/17 06:23 Absolute Monocytes 0.50 k/cumm (0.11-0.7) 10/18/17 06:23 Absolute Eosinophils 0.33 k/cumm (0.0-0.7) 10/18/17 06:23 Absolute Basophils 0.02 k/cumm (0.0-0.2) 10/18/17 06:23 PT 10.4 sec (9.3-10.8) 10/13/17 07:25 INR 1.1 (1.0-3.5) 10/13/17 07:25 Sodium 140 mmol/L (136-145) 10/18/17 06:23 Potassium 4.1 mmol/L (3.5-5.1) D 10/18/17 06:23 Chloride 105 mmol/L (98-107) 10/18/17 06:23 Carbon Dioxide 25.7 mmol/L (21.0-32.0) 10/18/17 06:23 Anion Gap 9.3 mmol/L (3-11) 10/18/17 06:23 BUN 22 mg/dL (7-18) H 10/18/17 06:23 Creatinine 1.68 mg/dL (0.70-1.30) H 10/18/17 06:23 Estimated GFR/1.73 m2 40.36 (mL/min/1.73m2) 10/18/17 06:23 Glucose 274 mg/dL (70-100) H 10/18/17 06:23 Calcium 8.4 mg/dL (8.5-10.1) L 10/18/17 06:23 Magnesium 2.1 mg/dL (1.8-2.4) 10/14/17 06:20 Total Bilirubin 0.7 mg/dL (0.2-1.0) 10/13/17 07:25 AST 19 U/L (15-37) 10/13/17 07:25 ALT 25 U/L (12-78) 10/13/17 07:25 Alkaline Phosphatase 132 U/L (46-116) H 10/13/17 07:25 Troponin I < 0.02 ng/mL (0.00-0.06) 10/13/17 11:30 Total Protein 6.7 g/dL (6.4-8.2) 10/13/17 07:25 Albumin 2.8 g/dL (3.4-5.0) L 10/13/17 07:25 Urine Color Yellow (Yellow) 10/12/17 15:20 Urine Clarity Sl cloudy 10/12/17 15:20 Urine pH 6.0 (5-8) 10/12/17 15:20 Ur Specific [place] 1.025 (1.005-1.025) 10/12/17 15:20 Urine Protein >=300 mg/dL (Negative) H 10/12/17 15:20 Urine Ketones Negative mg/dL (Negative) 10/12/17 15:20 Urine Blood Large (Negative) H 10/12/17 15:20 Urine Nitrite Positive (Negative) H 10/12/17 15:20 Urine Bilirubin Negative (Negative) 10/12/17 15:20 Urine Urobilinogen 0.2 EU/dL (Up TO 0.2) 10/12/17 15:20 Ur Leukocyte Esterase Trace (Negative) H 10/12/17 15:20 Urine RBC >50 (0-2) H 10/12/17 15:20 Urine WBC >50 HPF (0-5) 10/12/17 15:20 Ur Epithelial Cells Negative HPF (Negative) 10/12/17 15:20 Urine Crystals Negative HPF (Negative) 10/12/17 15:20 Urine Bacteria Many HPF (Negative) 10/12/17 15:20 Urine Casts Negative LPF (Negative) 10/12/17 15:20 Urine Mucus Negative (Negative) 10/12/17 15:20 Ur Culture Indicated? Yes 10/12/17 15:20 Urine Glucose 250 mg/dL (Negative) H 10/12/17 15:20 Patient ABO/Rh A Positive 10/13/17 07:25 Antibody Screen Negative 10/13/17 07:25 Disposition: Patient is transferred to [facility] and rehab for short-term rehabilitation and nursing care. Continue indwelling Whitt catheter until seen by urology for cystoscopy. Follow-up tentatively arranged with urology at [facility]. Follow-up with neurology at [facility] also due to be arranged. CC Dr. Isak Magana CC [facility] Cc: Dr. Shonda Ramirez cc: [facility] urology Total time arranging transfer 58 minutes.
== END 2017-10-18 15:10 | disposition intermediate care facility (04) | DRG 699 ==
LOC: ER 05-12 16:34 → MS 05-12 16:34 → ICU 05-12 16:34
PROVIDERS: Admitting Provider General Practice; Emergency Provider Emergency Medicine; PCP Family Medicine; Visit Provider Family Medicine
DX: N32.89 Other specified disorders of bladder (principal); N13.30 Unspecified hydronephrosis; N39.0 Urinary tract infection, site not specified; R33.9 Retention of urine, unspecified; R41.82 Altered mental status, unspecified; N28.9 Disorder of kidney and ureter, unspecified; G40.909 Epilepsy, unspecified, not intractable, without status epilepticus; Z86.73 Personal history of transient ischemic attack (TIA), and cerebral infarction without residual deficits; F41.9 Anxiety disorder, unspecified; Z78.1 Physical restraint status; N40.0 Benign prostatic hyperplasia without lower urinary tract symptoms; I12.9 Hypertensive chronic kidney disease with stage 1 through stage 4 chronic kidney disease, or unspecified chronic kidney disease; K21.9 Gastro-esophageal reflux disease without esophagitis; E78.5 Hyperlipidemia, unspecified; Z87.442 Personal history of urinary calculi; E11.22 Type 2 diabetes mellitus with diabetic chronic kidney disease; N18.9 Chronic kidney disease, unspecified
CPT/HCPCS: 36415 ×3; 80048 ×4; 80053 ×2; 83735 ×2; 84484 ×2; 86901; 86850; 86900; 85025 ×4; 85610; 85027; 70450; 94640 ×4; 70551; 93010 ×2; 95819; 99232; 99233; 99238; 99239; J7613 ×3; J2405 ×2; J2060; J0696 ×2; J1953 ×4; J3475; 81003; 87086; 74176; 99285; 96365; 51702; 99219; 81015; J2270; 96375; 96376; 99222; 99223; 93005; G0378; J3490

== ENCOUNTER 2018-03-01 12:26 | Outpatient (REF) | payer MEDICARE, SELFPAY ==
[2018-03-01 13:34] LABS: ALT 25 U/L (12-78); AST 19 U/L (15-37); Albumin 3.3 g/dL (3.4-5.0); Alkaline Phosphatase 126 U/L (46-116); Anion Gap 9.3 mmol/L (3-11); BUN 28 mg/dL (7-18); Bilirubin, Total 0.4 mg/dL (0.2-1.0); CO2 28.7 mmol/L (21.0-32.0); CREATININE 1.81 mg/dL (0.70-1.30); Calcium 8.7 mg/dL (8.5-10.1); Chloride 104 mmol/L (98-107); Estimated GFR 36.93 (mL/min/1.73m2); Glucose 319 mg/dL (70-100); Magnesium 1.9 mg/dL (1.8-2.4); Potassium 4.1 mmol/L (3.5-5.1); Sodium 142 mmol/L (136-145); TSH (W/Ref FT4) 1.45 uIU/mL (0.358-3.74); Total Protein 6.9 g/dL (6.4-8.2)
== END 2018-03-01 12:46 ==
LOC: NCHCN 12:26
PROVIDERS: PCP Family Medicine; Visit Provider Family Medicine
DX: N18.1 Chronic kidney disease, stage 1 (principal); R00.0 Tachycardia, unspecified
CPT/HCPCS: 80053; 83735; 84443

== ENCOUNTER 2018-07-08 15:55 | Outpatient (REF) | payer MEDICARE, SELFPAY ==
[2018-07-08 18:50] LABS: HCT 38.6 % (40.0-50.0); HGB 13.1 g/dL (13.5-17.5); Mean Corp. HGB Concentration 33.9 g/dL (32.0-36.0); Mean Corpuscular Hemoglobin 30.4 pg (27.0-33.0); Mean Corpuscular Volume 89.6 fL (80-95); Platelet Count 278 x1000/uL (130-400); RBC 4.31 m/cumm (4.50-6.00); RBC Distribution Width 14.4 % (11.8-14.1); White Blood Cell Count 7.56 k/cumm (4.4-10.8)
[2018-07-08 19:30] LABS: Albumin 3.6 g/dL (3.4-5.0); Anion Gap 10.5 mmol/L (3-11); BUN 30 mg/dL (7-18); CO2 28.5 mmol/L (21.0-32.0); CREATININE 1.94 mg/dL (0.70-1.30); Chloride 101 mmol/L (98-107); Estimated GFR 34.09 (mL/min/1.73m2); Glucose 307 mg/dL (70-100); PHOSPHORUS 3.2 mg/dL (2.6-4.7); Potassium 3.8 mmol/L (3.5-5.1); Sodium 140 mmol/L (136-145); TSH (W/Ref FT4) 0.92 uIU/mL (0.358-3.74)
[2018-07-08 21:05] LABS: Vitamin B12 1694 pg/mL (193-986)
[2018-07-11 12:24] LABS: Syphilis Serology (RPR) Negative (Negative)
== END 2018-07-08 16:15 ==
LOC: NCHCN 15:55
PROVIDERS: PCP Family Medicine; Visit Provider Family Medicine
DX: R53.83 Other fatigue (principal); R41.3 Other amnesia; N18.1 Chronic kidney disease, stage 1
CPT/HCPCS: 80069; 85027; 82607; 84443; 86592

== ENCOUNTER 2018-12-03 22:14 | Observation (INO) | payer MEDICARE, SELFPAY ==
[2018-12-03 22:13] VITALS: BP 195/88; PULSE 100; RESP 22
--- NOTE | 2018-12-03 22:18 | W.ED.GENAD ---
Discharge Plan Disposition Patient Disposition: [facility] INPATIENT Condition: Fair Discharge Details Chief Complaint: Seizure Clinical Impression: Seizure, UTI (urinary tract infection) Primary Care Provider: Isak Magana ED Provider: Gagan Hendrickson Bailey Meds and New Rx's Prescriptions: No Action omeprazole 40 MG capsule,delayed release(DR/EC) 40 mg PO BID Qty: 60 RF: 3 multivitamin 1 EACH tablet 1 tab PO DAILY RF: 0 losartan 50 MG tablet 50 mg PO DAILY RF: 0 sertraline 100 MG tablet 100 mg PO DAILY RF: 0 tamsulosin 0.4 MG capsule 0.4 mg PO DAILY RF: 0 aspirin 81 MG tablet,chewable 81 mg PO DAILY RF: 0 hydrochlorothiazide 25 MG tablet 25 mg PO DAILY RF: 0 Novolog Flexpen U-100 Insulin 300 UNITS/3 ML insulin pen 22 unit SQ AC RF: 0 Lantus Solostar U-100 Insulin 300 UNITS/3 ML insulin pen 45 units SQ BID RF: 0 atorvastatin [Lipitor] 40 MG tablet 80 mg PO HS RF: 0 levetiracetam [Keppra] 500 MG tablet 500 mg PO BID RF: 0 Novolog Flexpen U-100 Insulin 300 UNITS/3 ML insulin pen 0 units Sub-Q 0800,1200,1700 RF: 0 fluticasone propion-salmeterol [Advair Diskus] 250-50 mcg/dose Blister With Device 1 inh INHALATION BID RF: 0 diltiazem HCl [DILT-XR] 240 mg Capsule,Ext.Rel 24h Degradable 240 mg PO DAILY RF: 0 melatonin 3 mg Tablet 3 mg PO HS PRNRF: 0 bisacodyl 10 mg Suppository 10 mg [place] DAILY PRNRF: 0 albuterol sulfate [ProAir HFA] 90 mcg/actuation Hfa Aerosol Inhaler 2 puff INHALATION Q6H PRNRF: 0 finasteride 5 mg Tablet 5 mg PO DAILY RF: 0 Spiriva with HandiHaler 18 mcg Capsule, W/Inhalation Device 1 cap INHALATION DAILY RF: 0 Januvia 50 mg Tablet 50 mg PO DAILY RF: 0 Medical Decision Making Patient arrives here status post seizure. Bystander CPR done by dispatch instruction but this was probably not necessary. First responders did not continue CPR. Patient arrives here without complaint. He does have history of seizure history with a prior UTI. He did have an episode of emesis. He is not complaining of any abdominal complaints currently. He does not feel short of breath. I was able to obtain a problem list and medication list from primary care office. He has a prior history of CVA with left-sided deficits which likely explains the left facial droop. Head CT ordered. Chest x-ray ordered. Laboratory studies and urinalysis ordered. Patient awake and alert and stable here. EKG is unremarkable. Head CT is negative for any acute changes. Chest x-ray negative for any acute changes. Laboratory studies significant for a normal white count. Kidney function is baseline. Glucose is elevated but patient has poorly controlled diabetes. Urinalysis is a straight cath specimen and is significant for infection. Patient is given a gram of ceftriaxone. I have also loaded him with a gram of Keppra. He has had no further seizures here. He remains hemodynamically stable. Son did arrive and states that his father's face does not look any different to him than previous. He does report seizure-like activity. Case discussed with hospitalist for observation. Will make sure he remains hemodynamically stable as well as no further seizures. Hospitalist is in agreement with decision. Patient and son in agreement. Patient is stable here in the ED. Medical Records Medical records reviewed: Yes I reviewed the patient's medical records. Lab Data Lab results reviewed: Yes I reviewed the patient's lab results. ECG Data Attestation: I personally reviewed and interpreted this ECG (s) as follows: Prior ECG tracings: not available for review Interpretation: Sinus tachycardia at 107. Normal axis and intervals. No ST changes. HPI General Mode of arrival: EMS. Date/Time Provider Initiated Documentation: 12/03/18 22:18. Limitations to Documentation: no limitations. Information obtained by: patient and EMS. HPI Narrative: Patient presents to ED with EMS status post seizure at home. Per EMS, later corroborated by son, patient had complained of nausea and the need to vomit. Son had gone downstairs to get a bucket. When he returned patient was unresponsive and convulsing. 911 dispatch instructed the son to perform CPR which he did. This was stopped on presser first arrival. Patient was having seizure not cardiac arrest. EMS reports that there was a large amount of emesis. Patient has been awake and alert for them. He does have a prior history of seizure associated with UTI in the past. He is on Keppra. Patient arrives here in no distress. He denies headache, chest pain, shortness of breath, abdominal pain, confusion or other complaints. Related Data Home Medications Medication Instructions Recorded Confirmed Lantus Solostar U-100 Insulin 45 units SQ BID 02/08/15 12/04/18 Novolog Flexpen U-100 Insulin 22 unit SQ AC 02/08/15 12/04/18 aspirin 81 mg PO DAILY 02/08/15 12/04/18 hydrochlorothiazide 25 mg PO DAILY 02/08/15 12/04/18 losartan 50 mg PO DAILY 02/08/15 12/04/18 multivitamin 1 tab PO DAILY 02/08/15 12/04/18 sertraline 100 mg PO DAILY 02/08/15 12/04/18 tamsulosin 0.4 mg PO DAILY 02/08/15 12/04/18 omeprazole 40 mg PO BID #60 tab-cap 08/14/16 12/03/18 Novolog Flexpen U-100 Insulin 0 units SUB-Q 0800,1200,1700 pen 10/18/17 12/04/18 atorvastatin [Lipitor] 80 mg PO HS tab 10/18/17 12/04/18 levetiracetam [Keppra] 500 mg PO BID tab 10/18/17 12/04/18 albuterol sulfate [ProAir HFA] 2 puff INHALATION Q6H PRN 12/04/18 12/04/18 bisacodyl 10 mg [place] DAILY PRN 12/04/18 12/04/18 diltiazem HCl [DILT-XR] 240 mg PO DAILY 12/04/18 12/04/18 finasteride 5 mg PO DAILY 12/04/18 12/04/18 fluticasone propion-salmeterol 1 inh INHALATION BID 12/04/18 12/04/18 [Advair Diskus] melatonin 3 mg PO HS PRN 12/04/18 12/04/18 sitagliptin [Januvia] 50 mg PO DAILY 12/04/18 12/04/18 tiotropium bromide [Spiriva with 1 cap INHALATION DAILY 12/04/18 12/04/18 HandiHaler] Previous Rx's Medication Instructions Recorded Novolog Flexpen U-100 Insulin 0 units SUB-Q 0800,1200,1700 pen 10/18/17 atorvastatin [Lipitor] 80 mg PO HS tab 10/18/17 levetiracetam [Keppra] 500 mg PO BID tab 10/18/17 Allergies Allergy/AdvReac Type Severity Reaction Status Date / Time No Known Allergies Allergy Unverified 12/03/18 22:18 General Stated Complaint: Seizure KAELA: 3 Review of Systems Review of Systems 02/06 Review of Systems completed and is negative except as stated above in HPI (Systems reviewed: Const, Eyes, ENT, Resp, CV, GI, , MSK, Skin, Neuro) [facility] Medical History Cerebrovascular disease (Chronic) CKD (chronic kidney disease) (Acute) COPD (chronic obstructive pulmonary disease) (Chronic) Diabetes (Chronic) Diabetic gastroenteropathy (Acute) GERD (gastroesophageal reflux disease) (Chronic) HTN (hypertension) (Chronic) Hyperlipidemia (Acute) Seizure (Acute) Urinary retention (Acute) Surgical History (Updated 07/30/16 @ 14:45 by Kristi Knight) EGD - MAC (07/28/16) Social History Smoking/Tobacco Use Status: Former Tobacco Use Drug use: Never Do you feel safe in your relationship?: Yes Exam Narrative Exam Narrative: Vitals: Mildly tachycardic and hypertensive on arrival. Const: Obese elderly male in NAD. HEENT: NC/AT. Mild left facial droop. Eyes: Normal conjunctiva and sclera. Pupils are small but reactive and equal. EOMI. Neck: Supple. Trachea midline. Lungs: Normal respiratory effort. Lungs are clear. Cor: RRR without murmur/gallop. Good radial pulses. GI: Soft. NT/ND. No guarding or rebound. Neuro: A+O x 3. CN II - XII in tact except for mild left facial droop. Normal strength in extremities. Normal sensation. Normal speech. Ext: No C/C/E. No deformity or tenderness. Skin: Warm and dry without rash. Course Vital Signs Pulse 100 H 12/03/18 22:13 Respiratory Rate 22 12/03/18 22:13 Blood Pressure 195/88 H 12/03/18 22:13 Pulse 100 H 12/03/18 22:13 Respiratory Rate 22 12/03/18 22:13 Blood Pressure 195/88 H 12/03/18 22:13 Pain Level 0 12/03/18 22:13
--- NOTE | 2018-12-03 22:19 | DI.CT_ITS ---
SYMPTOM/DIAGNOSIS: SEIZURE CRANIAL CT: 12/[address] was performed. There is moderate to severe generalized cerebral atrophy somewhat prominent for the patient's age. There are patchy areas of decreased attenuation and periventricular white matter consistent with microvascular ischemic change. Probable small right sided lacunar infarcts also noted. No evidence of acute intracranial hemorrhage, mass effect or midline shift. The mastoid air cells and paranasal sinuses are fairly well aerated as visualized. Orbital and temporal bone structures appear intact. CONCLUSION: No evidence of acute intracranial process.
--- NOTE | 2018-12-03 22:19 | DI.RAD_ITS ---
SYMPTOM/DIAGNOSIS: POSSIBLE ASPIRATION DURING SEIZURE AP AND LATERAL CHEST: 12/03 The heart is not enlarged. The lungs are generally clear with some changes of scarring. No pleural effusion seen. CONCLUSION: No evidence of acute process.
[2018-12-03 22:30] VITALS: BP 177/96; PULSE 99; RESP 20
[2018-12-03 22:38] LABS: Abs Immature Grans 0.09 k/cumm (0.0-0.09); Absolute Basophil Count 0.03 k/cumm (0.0-0.2); Absolute Eosinophil Count 0.23 k/cumm (0.0-0.7); Absolute Lymphocyte Count 1.34 k/cumm (1.2-3.4); Absolute Monocyte Count 0.61 k/cumm (0.11-0.7); Absolute Neutrophil Count 8.36 k/cumm (1.2-6.7); Basophils % 0.3; Eosinophils % 2.2; HCT 38.7 % (40.0-50.0); HGB 13.1 g/dL (13.5-17.5); Immature Grans % 0.8; Lymphocytes % 12.6; Mean Corp. HGB Concentration 33.9 g/dL (32.0-36.0); Mean Corpuscular Hemoglobin 29.9 pg (27.0-33.0); Mean Corpuscular Volume 88.4 fL (80-95); Mean Platelet Volume 10.2 fL (8.0-11.0); Monocytes % 5.7; Neutrophils % 78.4; Platelet Count 257 x1000/uL (130-400); RBC 4.38 m/cumm (4.50-6.00); RBC Distribution Width 14.5 % (11.8-14.1); White Blood Cell Count 10.66 k/cumm (4.4-10.8)
[2018-12-03 22:52] LABS: Bilirubin Negative (Negative); Blood Trace-intact (Negative); Clarity Cloudy (Clear); Glucose 500 mg/dL (Negative); Ketones Negative (Negative); Leukocyte Esterase Small (Negative); Nitrite Negative (Negative); Specific Gravity 1.015 (1.005-1.025); Urobilinogen 0.2 EU/dL (Up TO 0.2); pH >= 9.0 (5-8)
[2018-12-03 23:01] LABS: ALT 26 U/L (12-78); AST 14 U/L (15-37); Albumin 3.1 g/dL (3.4-5.0); Alkaline Phosphatase 119 U/L (46-116); Anion Gap 7.6 mmol/L (3-11); BUN 29 mg/dL (7-18); Bilirubin, Total 0.3 mg/dL (0.2-1.0); CO2 30.4 mmol/L (21.0-32.0); CREATININE 1.93 mg/dL (0.70-1.30); Calcium 9.1 mg/dL (8.5-10.1); Chloride 102 mmol/L (98-107); Glucose 307 mg/dL (70-100); Magnesium 1.6 mg/dL (1.8-2.4); Sodium 140 mmol/L (136-145)
[2018-12-03 23:01] LABS: Bacteria Moderate HPF (Negative); Epithelial Cells Rare HPF (Negative); Other Cells Negative (Negative); RBC 0-2 (0-2); WBC >50 HPF (0-5)
[2018-12-03 23:02] LABS: C & S Indicated? Yes; Casts Negative LPF (Negative); Crystals Few Triple Phos HPF (Negative); Mucus Negative (Negative)
--- NOTE | 2018-12-03 23:12 | DI.VRAD_ITS ---
EXAM: CT Head Without Contrast EXAM DATE/TIME: 12/03/2018 10:22 PM CLINICAL HISTORY: 72 years old, male; Other: Seizure TECHNIQUE: Imaging protocol: Computed tomography images of the head without contrast. Coronal and sagittal reformatted images were created and reviewed. COMPARISON: CT HEAD WITHOUT CONTRAST 10/13/2017 7:30 AM FINDINGS: Brain: Global cerebral atrophy is consistent with patient's age. Decreased attenuation within the white matter tracts of both cerebral hemispheres is nonspecific but typically seen with small vessel disease/chronic white matter ischemic changes of aging. No intracranial hemorrhage or mass effect. Ventricles: Unremarkable. No ventriculomegaly. Bones/joints: Unremarkable. No acute fracture. Sinuses: Visualized sinuses are unremarkable. No fluid levels. Mastoid air cells: Visualized mastoid air cells are well aerated. No mastoid effusion. Soft tissues: Unremarkable. IMPRESSION: No acute abnormality. Dictated and Authenticated by: Jordan Garcia MD. Ordering:AUSTYN Farah MD
--- NOTE | 2018-12-03 23:17 | DI.VRAD_ITS ---
EXAM: XR Chest, 2 Views EXAM DATE/TIME: 12/03/2018 11:06 PM CLINICAL HISTORY: 72 years old, male; Other: Seizure TECHNIQUE: Imaging protocol: XR of the chest, 2 views. COMPARISON: CR CHEST 2 VIEWS PA,LAT 07/04/2016 9:01 AM FINDINGS: Lungs: Unremarkable. No consolidation. Pleural space: Unremarkable. No pleural effusion. No pneumothorax. Heart/Mediastinum: Unremarkable. No cardiomegaly. Bones/joints: Degenerative spondylosis of the thoracic spine. IMPRESSION: No acute abnormality. Dictated and Authenticated by: Jordan Garcia MD. Ordering:AUSTYN Farah MD
[2018-12-04] VITALS (17 sets, daily range): BP systolic 110–180; BP diastolic 56–90; PULSE 65–96; RESP 16–21; TEMP 36.3–37; O2SAT 91–98
[2018-12-04] MEDS: cefTRIAXone 1 GM/50 ML BAG IVPB ×2 (00:40→13:04)
[2018-12-04] MEDS: levETIRAcetam 1,000 MG in Normal Saline 100 ML 400 MG IVPB (01:00)
--- NOTE | 2018-12-04 01:18 | W.PM.HP.N ---
Date of service: 12/04/18 Time of Service: 01:18 Assessment and Plan (1) UTI (urinary tract infection): Start date: 12/03/18 Current visit: Yes Status: Acute This is a 72-year-old gentleman with seizure-like activity though it is doubtful whether he had a true seizure with memory of the event and after the event when the EMS arrived. He had a similar episode with a UTI in the past and was found to have a positive urine evaluation in the ED department. He was given a loading dose of Keppra in the ED and has had no further tremors. We placed on IV Rocephin and gentle IV hydration for his UTI. Urine cultures pending. We can convert him to oral therapy and send him home within 48 hours if he does well without recurrent seizure type activity. He is a poor historian and does live with his son who also is a poor historian according to the ED physician. He is a full code. Qualifiers: Hematuria presence: without hematuria Urinary tract infection type: site unspecified Qualified Code(s): N39.0 - Urinary tract infection, site not specified (2) Seizure disorder: Current visit: Yes Status: Chronic Patient did get an extra loading dose of Keppra though his episode by his report does not sound like a seizure with patient having full memory except for the episode where he was started on CPR by his son. He was not postictal. He did not appear to have any incontinence of urine or stool. We will follow him on his usual dose of oral Keppra. He could have had a breakthrough mild seizure with a history of CVA and seizure disorder status post CVA if under stress from an acute UTI which she has done in the past. (3) Urinary retention: Current visit: Yes Status: Chronic Patient does self cath 3 times a day and this will be continued during his hospital stay. (4) Renal insufficiency: Current visit: Yes Status: Chronic Patient appears to be at baseline with his creatinine measurement in the ED but will be given gentle IV hydration because of his presumed UTI. Once we are sure that he is eating and drinking well this can be discontinued. (5) Diabetes type 2, controlled: Current visit: Yes Status: Chronic Patient will not be given his usual oral therapy and glucometers before meals and at bedtime will be covered by short acting insulin. By history he has outpatient control of his diabetes is poor. 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 He began to have shaking which he remembers doing and at one point lost memory of events when his son was performing CPR at the instruction of the dispatcher. When EMS arrived CPR was stopped and the patient does remember EMS arriving to the scene. He does not appear to have any loss of memory after that event and this is a questionable seizure because the patient having full memory and not appearing to be postictal by history. He is on Keppra chronically for seizures status post CVA and did have a seizure previously with a UTI. He was found to have a UTI and the ED and he has a poorly controlled chronic medical problem but no other acute metabolic issues found. Was given a loading dose of Keppra 1000 mg IV in the ED. Last course the patient was mostly complaining of his chest wall pain status post CPR performed by his son but had no other focalizing complaints. He is a poor historian. He was said that he had a facial droop on the left as he awakened and his son stated that this is his baseline after his CVA. Son was not available at the time of my admission but was in the ED. Patient was brought in for observation and for initial treatment of his UTI with IV Rocephin be converted to oral therapy if stable. He has had no fever or chills and as stated no complaints. Review of Systems Review of Systems 13 point review of systems as allowed otherwise unrevealing or as per HPI. Patient is a poor historian and the ED physician said that the son was not much better. [facility] Medical History Cerebrovascular disease (Chronic) CKD (chronic kidney disease) (Acute) COPD (chronic obstructive pulmonary disease) (Chronic) Diabetes (Chronic) Diabetic gastroenteropathy (Acute) GERD (gastroesophageal reflux disease) (Chronic) HTN (hypertension) (Chronic) Hyperlipidemia (Acute) Seizure (Acute) Urinary retention (Acute) Surgical History EGD - MAC (07/28/16) Social History Smoking/Tobacco Use Status: Former Tobacco Use Drug use: Never Do you feel safe in your relationship?: Yes Meds Home Medications Medication Instructions Recorded Confirmed Type Lantus Solostar U-100 Insulin 45 units SQ BID 02/08/15 12/04/18 History Novolog Flexpen U-100 Insulin 22 unit SQ AC 02/08/15 12/04/18 History aspirin 81 mg PO DAILY 02/08/15 12/04/18 History hydrochlorothiazide 25 mg PO DAILY 02/08/15 12/04/18 History losartan 50 mg PO DAILY 02/08/15 12/04/18 History multivitamin 1 tab PO DAILY 02/08/15 12/04/18 History sertraline 100 mg PO DAILY 02/08/15 12/04/18 History tamsulosin 0.4 mg PO DAILY 02/08/15 12/04/18 History omeprazole 40 mg PO BID #60 tab-cap 08/14/16 12/03/18 History Novolog Flexpen U-100 Insulin 0 units SUB-Q 0800,1200,1700 pen 10/18/17 12/04/18 Rx atorvastatin [Lipitor] 80 mg PO HS tab 10/18/17 12/04/18 Rx levetiracetam [Keppra] 500 mg PO BID tab 10/18/17 12/04/18 Rx albuterol sulfate [ProAir HFA] 2 puff INHALATION Q6H PRN 12/04/18 12/04/18 History bisacodyl 10 mg MN DAILY PRN 12/04/18 12/04/18 History diltiazem HCl [DILT-XR] 240 mg PO DAILY 12/04/18 12/04/18 History finasteride 5 mg PO DAILY 12/04/18 12/04/18 History fluticasone propion-salmeterol 1 inh INHALATION BID 12/04/18 12/04/18 History [Advair Diskus] melatonin 3 mg PO HS PRN 12/04/18 12/04/18 History sitagliptin [Januvia] 50 mg PO DAILY 12/04/18 12/04/18 History tiotropium bromide [Spiriva with 1 cap INHALATION DAILY 12/04/18 12/04/18 History HandiHaler] Allergies Allergy/AdvReac Type Severity Reaction Status Date / Time No Known Allergies Allergy Unverified 12/03/18 22:18 Exam Narrative Exam Narrative: General: Patient appears appropriate for age, moderately obese and moves very slowly not being able to sit up because of his chest wall pain. He is in mild distress from his chest wall discomfort and alert and oriented at least to person and place. HEENT: Normocephalic with slight left facial droop especially the corner of the left mouth otherwise atraumatic face. Eyes with pupils equal and reactive to light symmetrically and extraocular movement intact with sclera anicteric. Oropharynx with slightly dry oral mucosa. External ears and nose appear normal. Neck: Supple without JVD. Lungs: Fair aeration and clear to auscultation and percussion the patient examined on his left side. Chest wall is tender over the lower sternal borders bilaterally. Heart: Regular rate and rhythm without murmurs or gallops. Back: Stooped posture with no CVA tenderness. Abdomen: Obese contour, soft and nontender to palpation without palpable hepatosplenomegaly. Genitalia/rectal: Exam deferred. Extremities: Osteoarthritic changes of the lower extremities especially with no clubbing, cyanosis or pitting edema. Peripheral pulses appear to be intact with good capillary refill. Skin: Tanned, warm and dry. No rashes noted. Neuro: Cranial nerves II through XII appear to be grossly intact except for slight facial droop, no focalizing motor deficits no Babinski's. Short-term memory appears to be slightly impaired with long-term memory intact. Results Imaging Imaging Studies: EXAM: CT Head Without Contrast EXAM DATE/TIME: 12/03/2018 10:22 PM CLINICAL HISTORY: 72 years old, male; Other: Seizure TECHNIQUE: Imaging protocol: Computed tomography images of the head without contrast. Coronal and sagittal reformatted images were created and reviewed. COMPARISON: CT HEAD WITHOUT CONTRAST 10/13/2017 7:30 AM FINDINGS: Brain: Global cerebral atrophy is consistent with patient's age. Decreased attenuation within the white matter tracts of both cerebral hemispheres is nonspecific but typically seen with small vessel disease/chronic white matter ischemic changes of aging. No intracranial hemorrhage or mass effect. Ventricles: Unremarkable. No ventriculomegaly. Bones/joints: Unremarkable. No acute fracture. Sinuses: Visualized sinuses are unremarkable. No fluid levels. Mastoid air cells: Visualized mastoid air cells are well aerated. No mastoid effusion. Soft tissues: Unremarkable. IMPRESSION: No acute abnormality. Dictated and Authenticated by: Jordan Garcia MD. EXAM: XR Chest, 2 Views EXAM DATE/TIME: 12/03/2018 11:06 PM CLINICAL HISTORY: 72 years old, male; Other: Seizure TECHNIQUE: Imaging protocol: XR of the chest, 2 views. COMPARISON: CR CHEST 2 VIEWS PA,LAT 07/04/2016 9:01 AM FINDINGS: Lungs: Unremarkable. No consolidation. Pleural space: Unremarkable. No pleural effusion. No pneumothorax. Heart/Mediastinum: Unremarkable. No cardiomegaly. Bones/joints: Degenerative spondylosis of the thoracic spine. IMPRESSION: No acute abnormality. Dictated and Authenticated by: Jordan Garcia MD. Labs : 12/03/18 22:30 12/03/18 22:30 Laboratory Results - last 24 hr 12/03/18 12/03/18 12/03/18 22:30 22:30 22:45 WBC 10.66 RBC 4.38 L Hgb 13.1 L Hct 38.7 L MCV 88.4 MCH 29.9 MCHC 33.9 RDW 14.5 H Plt Count 257 MPV 10.2 Immature Gran % 0.8 Neutrophils % 78.4 Lymphocytes % 12.6 Monocytes % 5.7 Eosinophils % 2.2 Basophils % 0.3 Absolute Neutrophils 8.36 H Absolute Lymphocytes 1.34 Absolute Monocytes 0.61 Absolute Eosinophils 0.23 Absolute Basophils 0.03 Sodium 140 Potassium 4.0 Chloride 102 Carbon Dioxide 30.4 Anion Gap 7.6 BUN 29 H Creatinine 1.93 H Estimated GFR/1.73 m2 34.30 Glucose 307 H Calcium 9.1 Magnesium 1.6 L Total Bilirubin 0.3 AST 14 L ALT 26 Alkaline Phosphatase 119 H Total Protein 7.0 Albumin 3.1 L TSH 2.00 Urine Color Yellow Urine Clarity Cloudy Urine pH >= 9.0 H Ur Specific [place] 1.015 Urine Protein >=300 H Urine Ketones Negative Urine Blood Trace-intact H Urine Nitrite Negative Urine Bilirubin Negative Urine Urobilinogen 0.2 Ur Leukocyte Esterase Small H Urine RBC 0-2 Urine WBC >50 Ur Epithelial Cells Rare Urine Crystals Few triple phos Urine Bacteria Moderate Urine Casts Negative Urine Mucus Negative Urine Other Negative Ur Culture Indicated? Yes Urine Glucose 500 H Last Vital Signs Temp 36.8 C 12/04/18 01:07 Pulse 93 H 12/04/18 00:51 Resp 16 12/04/18 00:51 BP 157/73 H 12/04/18 00:51 Pulse Ox 94 L 12/04/18 00:51
[2018-12-04] MEDS: Albuterol HFA 8 GM 60 PUFF INH IH (03:14)
[2018-12-04] MEDS: Normal Saline 1,000 ML 80 ML IV ×2 (03:15→16:29)
[2018-12-04] MEDS: Heparin 5,000 UNITS/ML VIAL 5000 UNITS SC ×3 (06:35→21:37)
[2018-12-04] MEDS: hydroCHLOROthiazide 25 MG TAB PO (07:45)
[2018-12-04] MEDS: dilTIAZem CD 120 MG CAPCR 240 MG PO (07:45)
[2018-12-04] MEDS: levETIRAcetam 500 MG TAB PO ×2 (07:46→20:35)
[2018-12-04] MEDS: Omeprazole 20 MG CAPCR 40 MG PO ×2 (07:46→16:29)
[2018-12-04] MEDS: Tamsulosin 0.4 MG CAPCR PO (07:46)
[2018-12-04] MEDS: Sertraline 50 MG TAB 100 MG PO (07:47)
[2018-12-04] MEDS: Multivitamin TAB 1 TAB PO (07:47)
[2018-12-04] MEDS: Aspirin 81 MG CHEW PO (07:47)
[2018-12-04] MEDS: Finasteride 5 MG TAB PO (07:47)
[2018-12-04] MEDS: Losartan 50 MG TAB PO (07:47)
[2018-12-04] MEDS: Insulin Aspart 300 UNITS/3 ML PEN SC ×4 (08:02→21:37)
[2018-12-04] MEDS: Normal Saline Flush 10 ML SYR IVP (08:06)
[2018-12-04] MEDS: Tiotropium Bromide-Respimat 10 PUFF INH 2 PUFF IH (08:11)
[2018-12-04] MEDS: Budesonide/Formoterol 160/4.5 6 GM 60 PUFF INH IH ×2 (08:12→20:35)
[2018-12-04 08:22] LABS: TSH (W/Ref FT4) 1.32 uIU/mL (0.36-3.74)
[2018-12-04 08:44] LABS: ALT 23 U/L (12-78); AST 15 U/L (15-37); Alkaline Phosphatase 115 U/L (46-116); Anion Gap 7.8 mmol/L (3-11); BUN 29 mg/dL (7-18); Bilirubin, Total 0.4 mg/dL (0.2-1.0); CO2 31.2 mmol/L (21.0-32.0); CREATININE 1.89 mg/dL (0.70-1.30); Calcium 8.8 mg/dL (8.5-10.1); Chloride 104 mmol/L (98-107); Estimated GFR 35.14 (mL/min/1.73m2); Glucose 200 mg/dL (70-100); Potassium 3.7 mmol/L (3.5-5.1); Sodium 143 mmol/L (136-145); Total Protein 6.8 g/dL (6.4-8.2)
[2018-12-04] MEDS: MAGNESIUM SULFATE 2 GM/50 ML BAG IVPB (11:07)
[2018-12-04 11:10] LABS: Creatine Kinase 171 U/L (39-308); Troponin I 0.06 ng/mL (0.00-0.06)
[2018-12-04] MEDS: Acetaminophen 325 MG TAB PO (15:01)
--- NOTE | 2018-12-04 17:27 | INITIAL_ITS ---
Care Management Initial Assess REASON FOR HOSPITALIZATION:: UTI, Seizure Disorder PAST MEDICAL HISTORY/PAST SURGICAL HISTORY:: BPH, Stroke, Diabetes, GERD, Hypertension, Hyperlipidemia, Kidney stone, Oswald's esophagus, S/P laser to (L) eye for unspecified lesion, S/P penile implant PREVIOUS FUNCTIONAL STATUS/SOCIAL/FAMILY SUPPORTS:: Doroteo resides in his own home, his son Hector, resides with him. At baseline Doroteo is able to drive and drives 1-2x/week. Hector states that Doroteo does not do well with eating habits and eats a lot of junk. 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 Doroteo also has a daughter Toya whom resides locally as well. CURRENT FUNCTIONAL STATUS:: Doorteo was sleeping soundly when CM attempted to meet with him. ADVANCE DIRECTIVES:: None on file at [facility]. Has patient been provided with information about the portal?: No Did the patient sign up for the portal?: No CODE STATUS:: Full Code INSURANCE COVERAGE / FINANCIAL ISSUES:: Medicare CURRENT HOME/COMMUNITY SERVICES/EQUIPMENT:: Cane and a shower chair, FWW, MOW in the community. Previously, Doroteo has had home health services; none currently. PRIMARY CARE PHYSICIAN:: Isak Magana POTENTIAL DISCHARGE NEEDS:: Evaluation for further needs, follow up appoi ntments. PATIENT/FAMILY EDUCATION NEEDS:: Review discharge instructions, any limitations, and ongoing discharge planning discussion; discuss Ask Me Three. ANTICIPATED BARRIERS TO DISCHARGE:: None identified at this time. TRANSPORTATION:: Via private vehicle with son Hector. PLAN:: Doroteo will return home with consideration for increased service supports in his home setting. He will follow up with his PCP, Neurologist and plan of care as prescribed. He will transport via private vehicle with his son, Hector.
--- NOTE | 2018-12-04 17:49 | W.PM.PROGNOT ---
Date of Service Date of service: 12/04/18 Time of Service: 17:49 Subjective Interval history since last seen: Mr Panchal has a low UOP, per nursing. He was straight cath'ed for 200 cc x 1. Denies dizziness, chest pain, shortness of breath, nausea, vomiting, abdominal pain. He is going to undergo a voiding trial tonight. Renal US is planned for am. He was put on tele due to requiring CPR yesterday - it is not clear whether the patient actually had a cardiac arrest - it sounds like he likely did not. Troponin is negative. Objective Objective Clinical Data: Abnormal lab results 12/03/18 12/03/18 12/03/18 Range/Units 22:30 22:30 22:45 RBC 4.38 L (4.50-6.00) m/cumm Hgb 13.1 L (13.5-17.5) g/dL Hct 38.7 L (40.0-50.0) % RDW 14.5 H (11.8-14.1) % Absolute Neutrophils 8.36 H (1.2-6.7) k/cumm BUN 29 H (7-18) mg/dL Creatinine 1.93 H (0.70-1.30) mg/dL Glucose 307 H (70-100) mg/dL Magnesium 1.6 L (1.8-2.4) mg/dL AST 14 L (15-37) U/L Alkaline Phosphatase 119 H (46-116) U/L Albumin 3.1 L (3.4-5.0) g/dL Urine pH >= 9.0 H (5-8) Urine Protein >=300 H (Negative) mg/dL Urine Blood Trace-intact H (Negative) Ur Leukocyte Esterase Small H (Negative) Urine Glucose 500 H (Negative) mg/dL 12/04/18 Range/Units 07:15 RBC (4.50-6.00) m/cumm Hgb (13.5-17.5) g/dL Hct (40.0-50.0) % RDW (11.8-14.1) % Absolute Neutrophils (1.2-6.7) k/cumm BUN 29 H (7-18) mg/dL Creatinine 1.89 H (0.70-1.30) mg/dL Glucose 200 H D (70-100) mg/dL Magnesium (1.8-2.4) mg/dL AST (15-37) U/L Alkaline Phosphatase (46-116) U/L Albumin 3.0 L (3.4-5.0) g/dL Urine pH (5-8) Urine Protein (Negative) mg/dL Urine Blood (Negative) Ur Leukocyte Esterase (Negative) Urine Glucose (Negative) mg/dL Vital Signs Temperature 36.5 C 12/04/18 16:30 Temperature Source Temporal Artery Scan 12/04/18 16:30 Pulse 74 12/04/18 16:30 Pulse Rhythm Regular 12/04/18 15:10 Pulse 96 H 12/04/18 00:51 Respiratory Rate 16 12/04/18 16:30 Respiratory Effort 12/04/18 07:50 Respiratory Depth Normal 12/04/18 07:50 Respiratory Pattern Normal 12/04/18 07:50 Blood Pressure 132/67 12/04/18 16:30 Blood Pressure Mean 92 12/04/18 00:51 Pulse Oximetry 93 L 12/04/18 16:30 Oxygen Delivery Method Room Air 12/04/18 16:30 Oxygen Flow Rate 0 12/04/18 16:30 Pain Level 2 12/04/18 16:44 Intake & Output 12/03/18 12/04/18 12/04/18 23:59 11:59 23:59 Intake Total 160 / 1160 1000 / 1160 Output Total 200 / 200 Balance -40 / 960 1000 / 960 Weight 109.1 kg 106.8 kg Intake: IV 160 / 1160 1000 / 1160 Output: Urine 200 / 200 Other: Urine Color Yellow Urine Appearance Cloudy Purulent Urine Odor Strong Comment entered in error Patient states he feels like my bladder is near empty Patient has only voided 200 this shift charge nurse aware. Voiding Methods Self-Catheterization Laboratory Results WBC 10.66 k/cumm (4.4-10.8) 12/03/18 22:30 RBC 4.38 m/cumm (4.50-6.00) L 12/03/18 22:30 Hgb 13.1 g/dL (13.5-17.5) L 12/03/18 22:30 Hct 38.7 % (40.0-50.0) L 12/03/18 22:30 MCV 88.4 fL (80-95) 12/03/18 22:30 MCH 29.9 pg (27.0-33.0) 12/03/18 22:30 MCHC 33.9 g/dL (32.0-36.0) 12/03/18 22:30 RDW 14.5 % (11.8-14.1) H 12/03/18 22:30 Plt Count 257 x1000/uL (130-400) 12/03/18 22:30 MPV 10.2 fL (8.0-11.0) 12/03/18 22:30 Immature Gran % 0.8 12/03/18 22:30 78.4 12/03/18 22:30 12.6 12/03/18 22:30 5.7 12/03/18:30 2.2 12/03/18 22:30 0.3 12/03/18 22:30 Absolute Neutrophils 8.36 k/cumm (1.2-6.7) H 12/03/18 22:30 Absolute Lymphocytes 1.34 k/cumm (1.2-3.4) 12/03/18 22:30 Absolute Monocytes 0.61 k/cumm (0.11-0.7) 12/03/18 22:30 Absolute Eosinophils 0.23 k/cumm (0.0-0.7) 12/03/18 22:30 Absolute Basophils 0.03 k/cumm (0.0-0.2) 12/03/18 22:30 Sodium 143 mmol/L (136-145) 12/04/18 07:15 Potassium 3.7 mmol/L (3.5-5.1) 12/04/18 07:15 Chloride 104 mmol/L (98-107) 12/04/18 07:15 Carbon Dioxide 31.2 mmol/L (21.0-32.0) 12/04/18 07:15 7.8 mmol/L (3-11) 12/04/18 07:15 BUN 29 mg/dL (7-18) H 12/04/18 07:15 1.89 mg/dL (0.70-1.30) H 12/04/18 07:15 35.14 (mL/min/1.73m2) 12/04/18 07:15 Glucose 200 mg/dL (70-100) H D 12/04/18 07:15 Calcium 8.8 mg/dL (8.5-10.1) 12/04/18 07:15 Magnesium 1.6 mg/dL (1.8-2.4) L 12/03/18 22:30 0.4 mg/dL (0.2-1.0) 12/04/18 07:15 AST 15 U/L (15-37) 12/04/18 07:15 ALT 23 U/L (12-78) 12/04/18 07:15 115 U/L (46-116) 12/04/18 07:15 171 U/L (39-308) 12/04/18 07:15 0.06 ng/mL (0.00-0.06) 12/04/18 07:15 6.8 g/dL (6.4-8.2) 12/04/18 07:15 3.0 g/dL (3.4-5.0) L 12/04/18 07:15 TSH 1.32 uIU/mL (0.36-3.74) 12/04/18 07:15 Yellow (Yellow) 12/03/18 22:45 Cloudy (Clear) 12/03/18 22:45 >= 9.0 (5-8) H 12/03/18 22:45 Ur Specific [place] 1.015 (1.005-1.025) 12/03/18 22:45 >=300 mg/dL (Negative) H 12/03/18 22:45 Negative mg/dL (Negative) 12/03/18 22:45 Trace-intact (Negative) H 12/03/18 22:45 Negative (Negative) 12/03/18 22:45 Negative (Negative) 12/03/18 22:45 0.2 EU/dL (Up TO 0.2) 12/03/18 22:45 Ur Leukocyte Esterase Small (Negative) H 12/03/18 22:45 0-2 (0-2) 12/03/18 22:45 >50 HPF (0-5) 12/03/18 22:45 Ur Epithelial Cells Rare HPF (Negative) 12/03/18 22:45 Few triple phos HPF (Negative) 12/03/18 22:45 Moderate HPF (Negative) 12/03/18 22:45 Negative LPF (Negative) 12/03/18 22:45 Negative (Negative) 12/03/18 22:45 Negative (Negative) 12/03/18 22:45 Ur Culture Indicated? Yes 12/03/18 22:45 500 mg/dL (Negative) H 12/03/18 22:45
[2018-12-04] MEDS: Atorvastatin 40 MG TAB 80 MG PO (21:36)
[2018-12-04] MEDS: Normal Saline 1,000 ML 150 ML IV (23:50)
[2018-12-05] VITALS (10 sets, daily range): BP systolic 109–164; BP diastolic 66–87; PULSE 65–80; RESP 18; TEMP 36.2–36.6; O2SAT 91–95
[2018-12-05] MEDS: Normal Saline 1,000 ML 150 ML IV ×2 (05:44→12:31)
[2018-12-05] MEDS: Heparin 5,000 UNITS/ML VIAL 5000 UNITS SC ×3 (05:44→21:21)
[2018-12-05 07:37] LABS: Abs Immature Grans 0.01 k/cumm (0.0-0.09); Absolute Basophil Count 0.02 k/cumm (0.0-0.2); Absolute Eosinophil Count 0.37 k/cumm (0.0-0.7); Absolute Lymphocyte Count 1.84 k/cumm (1.2-3.4); Absolute Monocyte Count 0.52 k/cumm (0.11-0.7); Absolute Neutrophil Count 4.98 k/cumm (1.2-6.7); Basophils % 0.3; Eosinophils % 4.8; HGB 11.3 g/dL (13.5-17.5); Immature Grans % 0.1; Lymphocytes % 23.8; Mean Corp. HGB Concentration 33.2 g/dL (32.0-36.0); Mean Corpuscular Hemoglobin 30.2 pg (27.0-33.0); Mean Corpuscular Volume 90.9 fL (80-95); Mean Platelet Volume 10.7 fL (8.0-11.0); Monocytes % 6.7; Neutrophils % 64.3; Platelet Count 225 x1000/uL (130-400); RBC 3.74 m/cumm (4.50-6.00); RBC Distribution Width 14.6 % (11.8-14.1); White Blood Cell Count 7.74 k/cumm (4.4-10.8)
[2018-12-05] MEDS: Normal Saline Flush 10 ML SYR IVP ×2 (07:42→09:44)
[2018-12-05] MEDS: Losartan 50 MG TAB PO (07:49)
[2018-12-05] MEDS: Sertraline 50 MG TAB 100 MG PO (07:49)
[2018-12-05] MEDS: Insulin Aspart 300 UNITS/3 ML PEN SC ×4 (07:49→21:21)
[2018-12-05] MEDS: Omeprazole 20 MG CAPCR 40 MG PO ×2 (07:49→16:21)
[2018-12-05 07:50] LABS: Anion Gap 9.6 mmol/L (3-11); BUN 30 mg/dL (7-18); CO2 27.4 mmol/L (21.0-32.0); CREATININE 1.84 mg/dL (0.70-1.30); Calcium 8.2 mg/dL (8.5-10.1); Chloride 106 mmol/L (98-107); Estimated GFR 36.24 (mL/min/1.73m2); Glucose 189 mg/dL (70-100); Magnesium 1.9 mg/dL (1.8-2.4); Potassium 4.2 mmol/L (3.5-5.1); Sodium 143 mmol/L (136-145)
[2018-12-05] MEDS: Tamsulosin 0.4 MG CAPCR PO (07:50)
[2018-12-05] MEDS: Multivitamin TAB 1 TAB PO (07:50)
[2018-12-05] MEDS: dilTIAZem CD 120 MG CAPCR 240 MG PO (07:50)
[2018-12-05] MEDS: levETIRAcetam 500 MG TAB PO ×2 (07:50→21:20)
[2018-12-05] MEDS: Aspirin 81 MG CHEW PO (07:50)
[2018-12-05] MEDS: Finasteride 5 MG TAB PO (07:50)
--- NOTE | 2018-12-05 08:00 | DI.US_ITS ---
SYMPTOM/DIAGNOSIS: UTI IN A MALE RENAL ULTRASOUND: 12/05 The kidneys are normal in size and shape and there is no evidence of a renal mass, hydronephrosis or nephrolithiasis. The previously described hydronephrosis of the right kidney seen on CT of 10/12/17 has resolved. Urinary bladder contains 393 cc. The patient self catheterizes but had no catheter at the time of the examination. There is apparent prostatic enlargement although the prostate projects very prominently in to the floor of the urinary bladder. The possibility of superimposed bladder mass not excluded on this examination. CONCLUSION: No evidence of urinary tract obstruction. Enlarged prostate vs urinary bladder mass, cystoscopic correlation may be considered if clinically appropriate.
[2018-12-05] MEDS: Tiotropium Bromide-Respimat 10 PUFF INH 2 PUFF IH (08:12)
[2018-12-05] MEDS: Budesonide/Formoterol 160/4.5 6 GM 60 PUFF INH IH ×2 (08:12→21:29)
[2018-12-05] MEDS: Acetaminophen 325 MG TAB PO (11:00)
[2018-12-05] MEDS: cefTRIAXone 1 GM/50 ML BAG IVPB (12:36)
[2018-12-05] MEDS: Albuterol HFA 8 GM 60 PUFF INH IH (12:36)
--- NOTE | 2018-12-05 15:49 | W.PM.PROGNOT ---
Date of Service Date of service: 12/05/18 Time of Service: 11:15 Assessment and Plan (1) Seizure disorder: Current visit: Yes Status: Chronic has been seizure free since admission. received IV keppra load in ED and is maintained on home dose of keppra 500 mg po bid awaiting neurology consult (2) UTI (urinary tract infection): Current visit: Yes Status: Acute urine culture grew gram negative rods. has been placed on ceftriaxone, day 2. ID & sensitivities pending. should be available tomorrow. Qualifiers: Hematuria presence: without hematuria Urinary tract infection type: site unspecified Qualified Code(s): N39.0 - Urinary tract infection, site not specified (3) Urinary retention: Current visit: Yes Status: Chronic continue to straight cath three times daily. continue finasteride, increase tamsulosin to 0.8 mg daily. urology consult renal US: No evidence of urinary tract obstruction (4) Diabetes type 2, controlled: Current visit: Yes Status: Chronic continue diabetic diet. continue blood sugars ac/hs and sliding scale coverage. blood sugars have been elevated in the high 100-200 range. last Hemoglobin A1C on record 06/11 was 10.6. will add lantus at 20 BID, (at home takes januvia 50 mg daily and lantus 45 BID) will resume home medicaitons at discharge. 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 (6) Cerebrovascular disease: Current visit: No Status: Chronic stable, continue aspirin and statin (7) Discharge planning issues: Current visit: No Status: Acute plan to discharge patient to home tomorrow after urine culture available. no services anticipated. case management following. Subjective Patient reports: no new complaints Interval history since last seen: this is a 72 year old male with history of new onset of seizure last september after being admitted for obstructive uropathy. he is [place] [facility] and self caths three times daily for ongoing urinary retention. he was admitted following an event that was thought to be seizure, initially thought to be cardiac arrest so did receive CPR initially on scene. work up not consistent with cardiac event and he has been in normal sinus rhythm on telemetry, troponins negative. he is having musculoskeletal chest pain likely d/t chest compressions. he has no other c/o. he has been eating and drinking but chronically has poor fluid intake per his routine. hemodynamically he has been stable. he has been bladder scanned and straight cathed for retention, this is chronic. Exam Const General: cooperative, comfortable and no acute distress Nutritional Appearance: overweight Orientation: alert, awake and oriented x3 (poor historian) HENMT Head: normal to inspection Mouth: oral mucosae normal Resp Effort & Inspection: normal respiratory effort Auscultation: clear to auscultation bilaterally Cardio Rate: regular rate Rhythm: regular rhythm GI Inspection: normal to inspection and distended Palpation: soft Auscultation: normal bowel sounds Skin General skin exam: no rashes or lesions noted Neuro General: alert and awake Speech: speech normal Motor: muscle tone normal throughout Extrem General: normal to inspection and full ROM Objective Objective Clinical Data: Abnormal lab results 12/05/18 12/05/18 Range/Units 06:10 06:10 RBC 3.74 L (4.50-6.00) m/cumm Hgb 11.3 L (13.5-17.5) g/dL Hct 34.0 L (40.0-50.0) % RDW 14.6 H (11.8-14.1) % BUN 30 H (7-18) mg/dL Creatinine 1.84 H (0.70-1.30) mg/dL Glucose 189 H (70-100) mg/dL Calcium 8.2 L (8.5-10.1) mg/dL Vital Signs Temperature 36.5 C 12/05/18 10:05 Temperature Source Temporal Artery Scan 12/05/18 10:05 Pulse 80 12/05/18 10:05 Pulse Rhythm Regular 12/05/18 07:40 Pulse 96 H 12/04/18 00:51 Respiratory Rate 18 12/05/18 10:05 Respiratory Effort 12/05/18 07:40 Respiratory Depth Normal 12/05/18 07:40 Respiratory Pattern Normal 12/05/18 07:40 Blood Pressure 155/72 H 12/05/18 07:20 Blood Pressure Mean 92 08/11/19 00:51 Pulse Oximetry 91 L 12/05/18 10:05 Oxygen Delivery Method Room Air 12/05/18 10:05 Oxygen Flow Rate 0 12/05/18 10:05 Pain Level 6 12/05/18 11:00 Comment 12/05/18 10:05 Intake & Output 12/04/18 12/05/18 12/05/18 23:59 11:59 23:59 Intake Total 1828 / 1988 1185 / 2437.5 1252.5 / 2437.5 Output Total 275 / 475 1688 / 1688 Balance 1553 / 1513 -503 / 749.5 1252.5 / 749.5 Weight 110.1 kg Intake: IV 1588 / 1748 935 / 1947.5 1012.5 / 1947.5 Oral 240 / 240 250 / 490 240 / 490 Output: Urine 275 / 475 1650 / 1650 Post Void Residual 38 / 38 Other: Urine Color Dark Kirstin Yellow Urine Appearance Cloudy Cloudy Urine Odor Normal Comment Patient states he feels like my bladder is near empty Patient has only voided 200 this shift charge nurse aware. Charge nurse aware Voiding Methods Self-Catheterization Laboratory Results WBC 7.74 k/cumm (4.4-10.8) 12/05/18 06:10 RBC 3.74 m/cumm (4.50-6.00) L 12/05/18 06:10 Hgb 11.3 g/dL (13.5-17.5) L 12/05/18 06:10 Hct 34.0 % (40.0-50.0) L 12/05/18 06:10 MCV 90.9 fL (80-95) 12/05/18 06:10 MCH 30.2 pg (27.0-33.0) 12/05/18 06:10 MCHC 33.2 g/dL (32.0-36.0) 12/05/18 06:10 RDW 14.6 % (11.8-14.1) H 12/05/18 06:10 Plt Count 225 x1000/uL (130-400) 12/05/18 06:10 MPV 10.7 fL (8.0-11.0) 12/05/18 06:10 Immature Gran % 0.1 12/05/18 06:10 64.3 12/05/18 06:10 23.8 12/05/18 06:10 6.7 12/05/18 06:10 4.8 12/05/18 06:10 0.3 12/05/18 06:10 Absolute Neutrophils 4.98 k/cumm (1.2-6.7) 12/05/18 06:10 Absolute Lymphocytes 1.84 k/cumm (1.2-3.4) 12/05/18 06:10 Absolute Monocytes 0.52 k/cumm (0.11-0.7) 12/05/18 06:10 Absolute Eosinophils 0.37 k/cumm (0.0-0.7) 12/05/18 06:10 Absolute Basophils 0.02 k/cumm (0.0-0.2) 12/05/18 06:10 Sodium 143 mmol/L (136-145) 12/05/18 06:10 Potassium 4.2 mmol/L (3.5-5.1) 12/05/18 06:10 Chloride 106 mmol/L (98-107) 12/05/18 06:10 Carbon Dioxide 27.4 mmol/L (21.0-32.0) 12/05/18 06:10 9.6 mmol/L (3-11) 12/05/18 06:10 BUN 30 mg/dL (7-18) H 12/05/18 06:10 1.84 mg/dL (0.70-1.30) H 12/05/18 06:10 36.24 (mL/min/1.73m2) 12/05/18 06:10 Glucose 189 mg/dL (70-100) H 12/05/18 06:10 Calcium 8.2 mg/dL (8.5-10.1) L 12/05/18 06:10 Magnesium 1.9 mg/dL (1.8-2.4) 12/05/18 06:10 0.4 mg/dL (0.2-1.0) 12/04/18 07:15 AST 15 U/L (15-37) 12/04/18 07:15 ALT 23 U/L (12-78) 12/04/18 07:15 115 U/L (46-116) 12/04/18 07:15 171 U/L (39-308) 12/04/18 07:15 0.06 ng/mL (0.00-0.06) 12/04/18 07:15 6.8 g/dL (6.4-8.2) 12/04/18 07:15 3.0 g/dL (3.4-5.0) L 12/04/18 07:15 TSH 1.32 uIU/mL (0.36-3.74) 12/04/18 07:15 Yellow (Yellow) 12/03/18 22:45 Cloudy (Clear) 12/03/18 22:45 >= 9.0 (5-8) H 12/03/18 22:45 Ur Specific [place] 1.015 (1.005-1.025) 12/03/18 22:45 >=300 mg/dL (Negative) H 12/03/18 22:45 Negative mg/dL (Negative) 12/03/18 22:45 Trace-intact (Negative) H 12/03/18 22:45 Negative (Negative) 12/03/18 22:45 Negative (Negative) 12/03/18 22:45 0.2 EU/dL (Up TO 0.2) 12/03/18 22:45 Ur Leukocyte Esterase Small (Negative) H 12/03/18 22:45 0-2 (0-2) 12/03/18 22:45 >50 HPF (0-5) 12/03/18 22:45 Ur Epithelial Cells Rare HPF (Negative) 12/03/18 22:45 Few triple phos HPF (Negative) 12/03/18 22:45 Moderate HPF (Negative) 12/03/18 22:45 Negative LPF (Negative) 12/03/18 22:45 Negative (Negative) 12/03/18 22:45 Negative (Negative) 12/03/18 22:45 Ur Culture Indicated? Yes 12/03/18 22:45 500 mg/dL (Negative) H 12/03/18 22:45
--- NOTE | 2018-12-05 16:08 | UCONE_ITS ---
Date of service: 12/05/18 Time of Service: 16:09 Assessment and Plan (1) Urinary retention: Current visit: Yes Status: Chronic The exact etiology of his retention is not absolute likely clear. It can sometimes occur with bladder outlet obstruction. He can also occur with bladder dysfunction. Probably the most common scenario is a combination of the 2. It is certainly reasonable to maximize his medical therapy for bladder outlet obstruction. That would include using the 5 mg dose of finasteride along with at 0.8 mg dose of tamsulosin (assuming his blood pressure is stable). We could then adjust the frequency of his catheterizations based on the volume that is obtained. We generally try to keep the catheterized volumes around 500 cc or less. If the higher dose of tamsulosin is helpful, he would be able to void more on his own and catheterize less often. If his issue has more to do with bladder dysfunction, the tamsulosin probably will not help much, but will not hurt much either. History of Present Illness Chief Complaint: Urinary retention Narrative: This is a 72-year-old gentleman who was seen once previously when he was hospitalized here at our facility. He had gross hematuria and hydronephrosis. There was concern that he had a bladder mass. He was not felt to be a surgical candidate here at our facility, so he was referred to the urology department down at [facility]. He ultimately had a cystoscopy which showed no bladder tumor. There were sage atous changes in his bladder consistent with catheterization. He was not able to void on his own, so he ultimately began performing intermittent catheterization. He estimates that he catheterizes an average of 3 times a day. He believes his catheterized volumes are between 2 and 300 cc. He is now hospitalized with a urinary tract infection. I have been asked to see him to weigh in on whether a higher dose of tamsulosin would be useful and whether he can catheterize less frequently. Review of Systems Review of Systems He has no fever or chills He has no chest pain or palpitations He has no nausea or vomit [facility] Medical History Cerebrovascular disease (Chronic) CKD (chronic kidney disease) (Acute) COPD (chronic obstructive pulmonary disease) (Chronic) Diabetes (Chronic) Diabetic gastroenteropathy (Acute) GERD (gastroesophageal reflux disease) (Chronic) HTN (hypertension) (Chronic) Hyperlipidemia (Acute) Seizure (Acute) Urinary retention (Acute) Surgical History EGD - MAC (07/28/16) Social History Smoking/Tobacco Use Status: Former Tobacco Use Drug use: Never Do you feel safe in your relationship?: Yes Exam Narrative Exam Narrative: He is in no obvious distress. He does not appear septic or toxic His abdomen is obese but soft with no guarding or rebound tenderness He is awake and alert. His historical accuracy is debatable. Results Last Vital Signs Temp 36.5 C 12/05/18 10:05 Pulse 80 12/05/18 10:05 Resp 18 12/05/18 10:05 BP 155/72 H 12/05/18 07:20 Pulse Ox 91 L 12/05/18 10:05 Labs : 12/05/18 06:10 12/05/18 06:10 Laboratory Results - last 24 hr 12/05/18 12/05/18 06:10 06:10 WBC 7.74 RBC 3.74 L Hgb 11.3 L Hct 34.0 L MCV 90.9 MCH 30.2 MCHC 33.2 RDW 14.6 H Plt Count 225 MPV 10.7 Immature Gran % 0.1 Neutrophils % 64.3 Lymphocytes % 23.8 Monocytes % 6.7 Eosinophils % 4.8 Basophils % 0.3 Absolute Neutrophils 4.98 Absolute Lymphocytes 1.84 Absolute Monocytes 0.52 Absolute Eosinophils 0.37 Absolute Basophils 0.02 Sodium 143 Potassium 4.2 Chloride 106 Carbon Dioxide 27.4 Anion Gap 9.6 BUN 30 H Creatinine 1.84 H Estimated GFR/1.73 m2 36.24 Glucose 189 H Calcium 8.2 L Magnesium 1.9
--- NOTE | 2018-12-05 16:51 | NCONE_ITS ---
Date of service: 12/05/18 Time of Service: 16:51 Assessment and Plan (1) Spell of altered cognition: Current visit: Yes Status: Acute (2) Vasovagal syncope: Current visit: Yes Status: Acute Mr. Panchal is a 72-year-old, right-handed man with a presumed history of seizures manifested by confusion on Keppra 500 mg twice daily who was admitted status post spell following severe nausea and vomiting manifested by generalized shaking with brief loss of consciousness, without postictal state, and found to have a urinary tract infection. Given his recollection of event, and lack of postictal state, I am not convinced that this spell was an epileptic seizure. I wonder if he had vasovagal syncope due to the extreme nausea and vomiting. He has not had any other episodes in the last 1 year concerning for seizure which is also very reassuring. He is already on a excellent dose of Keppra given his kidney disease. I would not recommend changing his medication at this time and he should continue Keppra 500 mg twice daily. No driving. He should follow-up in the neurology clinic in the next 4 to 6 weeks. Please call with any further questions or concerns. DISCLAIMER: This note was created using [employer] voice recognition software. History of Present Illness Chief Complaint: Seizure Narrative: Handedness: right. HPI: Mr. 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 In September 2017, he had episodic brief spells of confusion thought to represent complex partial seizures for which he was started on Keppra 500 mg twice daily. Work-up at that time included a brain MRI on 10/15/2017 which I was able to review and showed an old infarct in the right centrum semiovale with severe chronic white matter disease changes. He also had an EEG which showed mild generalized slowing without any epileptiform discharges. In the preceding 1 year, he reports no further confusional episodes or seizure activity. He was brought to the [facility] emergency room late on 12/03/2018 with possible seizure activity. He recalls developing extreme nausea and severe vomiting at which time he recalls generalized shaking and stiffness. At some point he must have become unresponsive as his son began performing CPR on him. By the time EMS arrived he appeared back to baseline. He had no postictal state. He was brought to the [facility] emergency room where he was diagnosed with a urinary tract infection. He was given an extra loading dose of 1000 mg of Keppra and started on antibiotics. He underwent a CT head which I was able to review and showed no acute findings. He has had no further spells since admission. He has not had any further nausea or vomiting. He denies missing any of his medications. Consults Requesting physician: Yoselyn Hdz Review of Systems Review of Systems All systems reviewed & are unremarkable except as noted in HPI and below PFSH Medical History Cerebrovascular disease (Chronic) CKD (chronic kidney disease) (Acute) COPD (chronic obstructive pulmonary disease) (Chronic) Diabetes (Chronic) Diabetic gastroenteropathy (Acute) GERD (gastroesophageal reflux disease) (Chronic) HTN (hypertension) (Chronic) Hyperlipidemia (Acute) Seizure (Acute) Urinary retention (Acute) Surgical History EGD - MAC (07/28/16) Social History Smoking/Tobacco Use Status: Former Tobacco Use Drug use: Never Do you feel safe in your relationship?: Yes Visit Medication and Allergies Active Medications Generic Name Dose Route Start Last Admin Trade Name Freq PRN Reason Stop Dose Admin Acetaminophen 1,000 mg 12/05/18 11:01 Tylenol PO Q4H PRN PRN Al Hydrox/Mg Hydrox/Simethicone 30 ml 12/04/18 00:51 Mylanta Liquid PO Q2H PRN PRN Albuterol Sulfate 2 puff 12/04/18 07:15 12/05/18 12:36 Ventolin Hfa IH 2 puffs Q6H PRN PRN Administration Aspirin 81 mg 12/04/18 08:30 12/05/18 07:50 PO 81 mg DAILY LASHAWN Administration Atorvastatin Calcium 80 mg 12/04/18 22:00 12/04/18 21:36 Lipitor PO 80 mg HS LASHAWN Administration Bisacodyl 10 mg 12/04/18 01:00 Dulcolax Suppository ID DAILY PRN Budesonide/Formoterol Fumarate 2 puff 12/04/18 08:30 12/05/18 08:12 Symbicort 160/4.5 Mcg Inhaler IH 2 puffs BID LASHAWN Administration Dextrose 0 gm 12/04/18 00:57 Insta-Glucose PO DIRECTED PRN Dextrose/Water 0 gm 12/04/18 00:57 IVP DIRECTED PRN Diltiazem HCl 240 mg 12/04/18 08:30 12/05/18 07:50 Cardizem Cd PO 240 mg QAM LASHAWN Administration Dimethicone/Zinc Oxide 0 gm 12/04/18 00:51 Arabella Protect Cream TP PRN PRN Docusate Sodium 100 mg 12/04/18 00:51 Colace PO TID PRN PRN Finasteride 5 mg 12/04/18 08:30 12/05/18 07:50 Proscar PO 5 mg DAILY LASHAWN Administration Heparin Sodium (Porcine) 5,000 units 12/04/18 06:00 12/05/18 13:44 SC 5,000 units Q8H LASHAWN Administration Ceftriaxone Sodium/Dextrose 1 gm in 50 mls @ 100 mls/hr 12/04/18 12:00 12/05/18 12:36 Rocephin IVPB 100 mls/hr Q24H LASHAWN Administration IV Miscellaneous Supplies 1 each 12/03/18 22:30 IV DIRECTED [facility] Insulin Aspart 0 units 12/04/18 07:30 12/05/18 16:23 Novolog Flexpen SC 6 units AC & HS LASHAWN Administration Protocol Insulin Glargine 20 units 12/05/18 20:00 Lantus Solostar SC BID [facility] Levetiracetam 500 mg 12/04/18 08:30 12/05/18 07:50 Keppra PO 500 mg BID LASHAWN Administration Losartan Potassium 50 mg 12/04/18 08:30 12/05/18 07:49 Cozaar PO 50 mg DAILY LASHAWN Administration Magnesium Hydroxide 30 ml 12/04/18 00:51 Milk Of Magnesia PO DAILY PRN PRN Melatonin 3 mg 12/04/18 02:30 PO HS PRN PRN Multivitamins 1 tab 12/04/18 08:30 12/05/18 07:50 PO 1 tab DAILY LASHAWN Administration Omeprazole 40 mg 12/04/18 07:30 12/05/18 16:21 Prilosec PO 40 mg BID AC LASHAWN Administration Polyethylene Glycol 17 gm 12/04/18 00:51 Miralax PO DAILY PRN PRN Constipation Sertraline HCl 100 mg 12/04/18 08:30 12/05/18 07:49 Zoloft PO 100 mg DAILY LASHAWN Administration Sodium Chloride 0 ml 12/03/18 22:19 12/05/18 09:44 Saline Flush 10 Ml Syringe IVP 10 ml PRN PRN Administration Tamsulosin HCl 0.8 mg 12/06/18 08:30 Flomax PO DAILY LASHAWN Tiotropium [place] 2 puff 12/04/18 08:30 12/05/18 08:12 Spiriva Respimat IH 1 puffs DAILY LASHAWN Administration Allergies No Known Allergies Allergy (Unverified 12/03/18 22:18) Exam Narrative Exam Narrative: Physical Exam: Gen: Patient of apparent stated age, NAD Head and face: no facial or cranial abnormalities Neck: Supple, no meningismus, no occipital tenderness CV: RRR Resp: CTA B/L Abd: soft, nontender, nondistended, +BS Ext: Mild bilateral LE edema. No clubbing or cyanosis. No bony deformity. Neuro Exam: Language: fluency, naming, repetition, and comprehension intact; Mental Status: AAOx3, current events intact, fund of knowledge intact; Speech: no dysarthria Cranial nerves: Funduscopy:not performed CN II: visual huerta intact CN III, IV, : extraocular movements intact, no nystagmus, pupils symmetric and reactive to light CN V: face sensation intact to LT and PP CN VII: no facial asymmetry noted CN VIII: hearing intact bilaterally CN IX, X: palate rises symmetrically CN XI: trapezius/SCM 5/5 bilaterally CN XII: protrudes tongue symmetrically Sensory: intact to LT, PP, vibration, and joint position in all extremities Motor: bulk and tone intact. Fine motor movements intact bilaterally. No pronator drift. Strength 5/5 throughout including the deltoids, biceps, tricep s, wrist extensors, hip flexors, knee flexors, knee extensors, ankle flexors, and ankle extensors. Reflexes: 2+ at the biceps, triceps, and brachioradialis; reduced at the patella and absent at the achilles tendons bilaterally; toes upgoing bilaterally; Coordination: FTN and HTS intact bilaterally Gait: deferred Results Last Vital Signs Temp 36.5 C 12/05/18 16:13 Pulse 76 12/05/18 16:13 Resp 18 12/05/18 16:13 BP 164/72 H 12/05/18 16:13 Pulse Ox 92 L 12/05/18 16:13 Labs : 12/05/18 06:10 12/05/18 06:10 Laboratory Results - last 24 hr 12/05/18 12/05/18 06:10 06:10 WBC 7.74 RBC 3.74 L Hgb 11.3 L Hct 34.0 L MCV 90.9 MCH 30.2 MCHC 33.2 RDW 14.6 H Plt Count 225 MPV 10.7 Immature Gran % 0.1 Neutrophils % 64.3 Lymphocytes % 23.8 Monocytes % 6.7 Eosinophils % 4.8 Basophils % 0.3 Absolute Neutrophils 4.98 Absolute Lymphocytes 1.84 Absolute Monocytes 0.52 Absolute Eosinophils 0.37 Absolute Basophils 0.02 Sodium 143 Potassium 4.2 Chloride 106 Carbon Dioxide 27.4 Anion Gap 9.6 BUN 30 H Creatinine 1.84 H Estimated GFR/1.73 m2 36.24 Glucose 189 H Calcium 8.2 L Magnesium 1.9
[2018-12-05] MEDS: Atorvastatin 40 MG TAB 80 MG PO (21:20)
[2018-12-05] MEDS: Insulin Glargine 300 UNITS/3 ML PEN 20 UNITS SC (21:21)
--- NOTE | 2018-12-05 22:39 | PDOC.CMPRO ---
- If Service Date Differs Date of service: 12/05/18 Time of Service: 22:40 Care Management Progress Note S/O: CM met with Ed at the bedside he is alert and engaged with CM during assessment. He understands he is being treated for a UTI he is not sure why he is retaining urine or why he has a UTI. He does have a urology consult and neurology. He feels that he has a good support system at home he lives with his son. He would like home health if it recommended based on his urinary needs. He remains on IV antibiotics and telemetry at this time. Patient does not recall a history of seizures when CM is meeting with him and states he is unsure why he has the episode he had. Ed states he just kept shaking after eating a large meal with his son. He reports that he felt like he ate to much then did not feel well after that. A: Ed is a 72 year old male admitted with UTI with a history of BPH P: Ed will return home with his son Hector when he is medically ready. He is receptive to new home health services if recommended. He will transport home with his son at time of discharge.
[2018-12-06] VITALS (9 sets, daily range): BP systolic 138–173; BP diastolic 72–90; PULSE 62–78; RESP 16–20; TEMP 36.1–36.4; O2SAT 93–94
[2018-12-06] MEDS: Heparin 5,000 UNITS/ML VIAL 5000 UNITS SC ×2 (05:41→14:35)
[2018-12-06] MEDS: Docusate Sodium 100 MG CAP PO (05:49)
[2018-12-06] MEDS: Acetaminophen 500 MG TAB 1000 MG PO (05:55)
[2018-12-06] MEDS: Budesonide/Formoterol 160/4.5 6 GM 60 PUFF INH IH (08:14)
[2018-12-06] MEDS: Tiotropium Bromide-Respimat 10 PUFF INH 2 PUFF IH (08:16)
[2018-12-06] MEDS: Insulin Aspart 300 UNITS/3 ML PEN SC ×3 (08:43→17:07)
[2018-12-06] MEDS: Insulin Glargine 300 UNITS/3 ML PEN 20 UNITS SC (08:45)
[2018-12-06] MEDS: Sertraline 50 MG TAB 100 MG PO (08:46)
[2018-12-06] MEDS: dilTIAZem CD 120 MG CAPCR 240 MG PO (08:46)
[2018-12-06] MEDS: Finasteride 5 MG TAB PO (08:46)
[2018-12-06] MEDS: Multivitamin TAB 1 TAB PO (08:47)
[2018-12-06] MEDS: Losartan 50 MG TAB PO (08:47)
[2018-12-06] MEDS: Tamsulosin 0.4 MG CAPCR 0.8 MG PO (08:47)
[2018-12-06] MEDS: Aspirin 81 MG CHEW PO (08:47)
[2018-12-06] MEDS: levETIRAcetam 500 MG TAB PO (08:47)
[2018-12-06] MEDS: Omeprazole 20 MG CAPCR 40 MG PO ×2 (08:47→17:07)
[2018-12-06] MEDS: cefTRIAXone 1 GM/50 ML BAG IVPB (12:42)
--- NOTE | 2018-12-06 14:10 | DM INPTCON_ITS ---
Date of service: 12/06/18 Time of Service: 14:10 Diabetes Inpatient Consult DESCRIPTION/ASSESSMENT: Appreciate diabetes consult for Mr. Panchal who is hospitalized from an episode of shaking which he believes was caused from eating too much [place] food, although he does say he also has a urinary tract infection. He is well known to me from outpatient diabetes support. No current A1c but he did not respond to recent outpatient referral with invitation to have his son join the visit. Blood sugars here mostly in 200s which is historically his usual management with some blood sugars higher. He is receiving 20u glargine instead of his usual 45u twice daily and moderate insulin correction. He is eating 29-64grams carbohydrate at a meal. He has been encouraged to use Novolog in the past and his med sheet indicates 22u before meals, however he does not describe using this insulisn which asked. States he has muffin, cheese and juice for breakfast; PBJ sandwich for lunch on white bread; supper from [employer] most nights. States he has cut back on his portions and reports eating very little. States he does not do his own shopping at this time; his son does it for him. States he almost never tests his blood sugar although he knows he should. He has a history of depression which has affected his interest in his own health. INTERVENTION: Mr. Panchal has little interest in improving his glycemic control or making efforts to manage his blood sugars. He jorgensen awareness of some things that would help glycemic control, but has been unmotivated to try any changes. If he remains here, he may benefit from an increase in basal insulin closer to his usual regimen. PLAN: Will follow blood sugars. He knows how to contact the department if desired. Time Spent in Nutritional Counseling and Treatment: 15 minutes face to face
--- NOTE | 2018-12-06 15:00 | DI.RAD_ITS ---
SYMPTOMS/DIAGNOSIS: RIB PAIN, ? RIB FX DURING CHEST COMPRESSIONS BILATERAL RIBS: Multiple films of the ribs were obtained. No rib fracture identified. Visualized portions of the lungs appear clear and well expanded.
--- NOTE | 2018-12-06 15:47 | CMDISCH_ITS ---
LACE Index Scoring Tool - Questions: Length of Stay (in days): 3 Acuity (Admit via E.D.?): Yes Comorbidities: Diabetes w/o Complication, Chronic Pulmonary Disease, Mild Liver/Renal Disease E.D. Visits: 1 - Answers: Total Score: 12 Risk of Readmission: High Risk Care Management Discharge Reason for Hospitalization: UTI, Seizure Disorder Discharge Plan: He is being discharged home with his son transporting. He will have new services for RN to monitor his self cath technique so he does not continue to get UTI's. His PCP office has been contacted re need to set him up with ziopatch monitoring coordinator and they will order this and do the PA. Patient/Family Education Needs: RN to review d/c instructions re meds and activity levels. Review of Ask me Now questions. Services Needed at Discharge: Home Health Care Services
--- NOTE | 2018-12-06 16:17 | W.PM.DS.N ---
Date of service: 12/06/18 Time of Service: 16:17 DS: Diagnosis Discharge Diagnosis (1) Spell of altered cognition: Status: Acute (2) Vasovagal syncope: Status: Acute Discharge Plan Disposition Patient Disposition: HOME W/HOME HEALTH SERVICE Condition: Improving Discharge Details Chief Complaint: Seizure Clinical Impression: Seizure, UTI (urinary tract infection) Reason For Visit: UTI, SEIZURE DISORDER Admit Date/Time: 12/04/18 00:51 Admit Provider: Dante Alexander Attending Provider: Dante Alexander Primary Care Provider: Isak Magana ED Provider: Gagan Hendrickson [facility] Hospital Course: Doroteo Thorpe is a 72-year-old man with a past medical history significant for 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 He presented to the emergency department via EMS on 12/03/2018 for concern for seizure activity. His son performed CPR at the direction of the clipper machine operator until EMS arrived. He did not appear to have a postictal state. He was found to have a urinary tract infection for which he was treated with Ceftriaxone. His urine culture is growing Providencia Rettgeri. He will transition to oral cefpodoxime to complete his antibiotic course for a complicated UTI. He was seen by Neurology, Dr. Kan was not convinced that he experienced an epileptic seizure prior to his arrival, given his recollection of the event and lack of postictal state. Dr. Kan suggested that he possibly had vasovagal syncope due to the extreme nausea and vomiting. She also notes that he has not had any other episodes in the last 1 year concerning for seizure which is also very reassuring. He had a CT head the emergency department which revealed no evidence of an acute intracranial process he did receive a loading dose of Keppra in the emergency department, then he was continued on his usual dose of Keppra 500 mg twice daily. She did not recommend any changes in his Keppra dosing. She recommends that he not drive. She will follow-up with him in the neurology clinic in the next 4 to 6 weeks. Given the concern that he may have had a syncopal episode rather than an epileptic seizure, he was monitored on telemetry and was found to be in normal sinus rhythm with rates in the 60s and 70s. It is recommended that if there is further concern for syncope that his primary care provider order continuous cardiac monitoring with ZioPatch. This would require a prior authorization from his PCP office. He was also seen by urology for urinary retention. Dr. Cooney saw the patient and notes that the reason for his urinary retention is most likely a combination of bladder outlet obstruction and bladder dysfunction. He recommended continuing the finasteride 5 mg p.o. daily and increasing tamsulosin from 0.4 mg daily to 0.8 mg daily as long as he has the blood pressure to handle the dose adjustment. He did have a renal ultrasound which showed no evidence of urinary tract obstruction, Enlarged prostate vs urinary bladder mass, cystoscopic correlation may be considered if clinically appropriate. Dr. Cooney's note indicates that he has been seen and followed at [facility] [place] [place] urology, he did have a cystoscopy which showed no bladder tumor but did show edematous changes in his bladder consistent with catheterization. He recommends that the patient maintain a voiding diary and that he measure and document his urinary output. If the higher dose of tamsulosin is helpful, he may be able to void more on his own and catheterize less often. These medication changes have been made. He continues to perform intermittent catheterizations. Nursing worked with him on his technique while he was in inpatient. He will follow-up with his urologist as an outpatient. He will have home health nursing work with him on his self-catheterization techniques. Finally, the patient verbalized that he had been experiencing musculoskeletal rib pain that was reproducible on palpation. He had a chest x-ray at the time of his admission which showed no evidence of an acute process but did not comment on his ribs. Prior to his discharge home, he had a rib series: Multiple films of the ribs were obtained. No rib fracture identified. Visualized portions of the lungs appear clear and well expanded. He was given an incentive spirometer with directions on use. He is encouraged to ambulate frequently, cough and deep breathe and use the incentive spirometer to avoid subsequent atelectasis and/or pneumonia. Home Meds and New Rx's Prescriptions: New cefpodoxime 200 mg tablet 200 mg PO BID Qty: 22 RF: 0 polyethylene glycol 3350 [Miralax] 17 gram/dose powder 17 gm PO BID Qty: 119 RF: 0 Continued omeprazole 40 MG capsule,delayed release(DR/EC) 40 mg PO BID Qty: 60 RF: 3 multivitamin 1 EACH tablet 1 tab PO DAILY RF: 0 losartan 50 MG tablet 50 mg PO DAILY RF: 0 sertraline 100 MG tablet 100 mg PO DAILY RF: 0 aspirin 81 MG tablet,chewable 81 mg PO DAILY RF: 0 hydrochlorothiazide 25 MG tablet 25 mg PO DAILY RF: 0 Novolog Flexpen U-100 Insulin 300 UNITS/3 ML insulin pen 22 unit SQ AC RF: 0 Lantus Solostar U-100 Insulin 300 UNITS/3 ML insulin pen 45 units SQ BID RF: 0 atorvastatin [Lipitor] 40 MG tablet 80 mg PO HS RF: 0 levetiracetam [Keppra] 500 MG tablet 500 mg PO BID RF: 0 Novolog Flexpen U-100 Insulin 300 UNITS/3 ML insulin pen 0 units Sub-Q 0800,1200,1700 RF: 0 fluticasone propion-salmeterol [Advair Diskus] 250-50 mcg/dose Blister With Device 1 inh INHALATION BID RF: 0 diltiazem HCl [DILT-XR] 240 mg Capsule,Ext.Rel 24h Degradable 240 mg PO DAILY RF: 0 melatonin 3 mg Tablet 3 mg PO HS PRNRF: 0 bisacodyl 10 mg Suppository 10 mg VA DAILY PRNRF: 0 albuterol sulfate [ProAir HFA] 90 mcg/actuation Hfa Aerosol Inhaler 2 puff INHALATION Q6H PRNRF: 0 finasteride 5 mg Tablet 5 mg PO DAILY RF: 0 Spiriva with HandiHaler 18 mcg Capsule, W/Inhalation Device 1 cap INHALATION DAILY RF: 0 Januvia 50 mg Tablet 50 mg PO DAILY RF: 0 Changed tamsulosin 0.4 MG capsule 0.8 mg PO DAILY Qty: 60 RF: 0 Discharge Instructions Instructions: Urinary Tract Infection in Men (DC) Additional Instructions: Take antibiotics until they are gone. Continue your usual medications, your tamsulosin dose has been increased. Monitor your blood sugars at home. You do not have fractured ribs, but make sure you use the Incentive spirometer, walk around, cough and deep breathe so your lungs stay healthy. Take miralax for your bowels 1-2 times per day. Drink plenty of fluids at home. Follow up with your PCP as scheduled. Follow up with the Neurologist as scheduled for your seizures. Follow up with Urology for your UTI and catheterizations as scheduled. Stand Alone Forms: Nursing Discharge Form Referrals: Isak Magana [Primary Care Provider] - 12/09/18 10:40 am Cordell Dey [ [facility] STAFF PHYSICIAN] - 01/10/19 1:00 pm Shonda Kan MD [ [facility] STAFF PHYSICIAN] - 01/18/19 9:45 am Activity:: Activity as Tolerated Equipment/Supplies:: No Equipment Needed Diet:: Carb counting and heart healthy Discharge Orders Discharge Orders: Discharge Order (Routine); Ordered 12/06/18 Ordered By: Charlotte Weeks Exam Narrative Exam Narrative: General: Pleasant and cooperative, overweight elderly male. Laying in bed with head of bed elevated, in no acute distress, appears comfortable. Answers questions appropriately. Speech is clear and articulate. HEENT: Normocephalic, atraumatic, pupils equal and round, EOMI, mucous membranes moist. Cardiovascular: Heart has regular rate and rhythm, no murmur appreciated. Chest: Mild discomfort noted on palpation of distal sternum, no ecchymosis or erythema noted. Respiratory: Respirations even and unlabored, lung sounds clear to auscultation bilaterally. GI: Soft round abdomen, normoactive bowel sounds x4 quadrants, nontender on palpation. Extremities: No clubbing, cyanosis or edema. DS: Data Vitals/I&O Vitals and I&O: Vital Signs Temperature 36.2 C L 12/06/18 15:26 Temperature Source Tympanic 12/06/18 15:26 Pulse 78 12/06/18 15:41 Pulse Rhythm Regular 12/06/18 08:21 Pulse 96 H 12/04/18 00:51 Respiratory Rate 19 12/06/18 15:26 Respiratory Effort Non-Labored 12/06/18 08:21 Respiratory Depth Normal 12/06/18 08:21 Respiratory Pattern Normal 12/06/18 08:21 Blood Pressure 156/83 H 12/06/18 15:26 Blood Pressure Mean 92 12/04/18 00:51 Pulse Oximetry 94 L 12/06/18 15:26 Oxygen Delivery Method Room Air 12/06/18 15:26 Oxygen Flow Rate 0 12/06/18 15:26 Pain Level 0 08/13/19 15:26 Comment 12/06/18 15:26 Intake & Output 12/05/18 12/06/18 12/06/18 23:59 11:59 23:59 Intake Total 1542.5 / 2727.5 490 / 730 240 / 730 Output Total 475 / 2163 1370 / 1370 Balance 1067.5 / 564.5 -880 / -640 240 / -640 Weight 110.1 kg Intake: IV 1062.5 / 1997.5 Oral 480 / 730 480 / 720 240 / 720 Output: Urine 475 / 2125 1370 / 1370 Other: Urine Color Dark Kirstin Pale Yellow Straw Urine Appearance Cloudy Clear Urine Odor Normal Comment pt was incontinent of large amount of urine as well as voiding 100 in urinal. pt scanned 656 PVR and cathed himself with clean technique with 4 attempts at getting catheter in meatus. Voiding Methods Urinal Incontinent Completed studies during hospitalization [Text1]: 12/03/2018: AP AND LATERAL CHEST: 12/03 The heart is not enlarged. The lungs are generally clear with some changes of scarring. No pleural effusion seen. CONCLUSION: No evidence of acute process. Patient Name: DOROTEO THORPE #: [id number]: MS Ordering Provider: Gagan Hendrickson M.D. : ADM HAYDEE Primary Care Provider: Isak Magana Date of Exam: 12/03/18Sex: M : 5Age: 72 Exam(s) a CT:CT head wo SYMPTOM/DIAGNOSIS: SEIZURE CRANIAL CT: 12/[address] was performed. There is moderate to severe generalized cerebral atrophy somewhat prominent for the patient's age. There are patchy areas of decreased attenuation and periventricular white matter consistent with microvascular ischemic change. Probable small right sided lacunar infarcts also noted. No evidence of acute intracranial hemorrhage, mass effect or midline shift. The mastoid air cells and paranasal sinuses are fairly well aerated as visualized. Orbital and temporal bone structures appear intact. CONCLUSION: No evidence of acute intracranial process. 12/05/18: RENAL ULTRASOUND: 12/05 The kidneys are normal in size and shape and there is no evidence of a renal mass, hydronephrosis or nephrolithiasis. The previously described hydronephrosis of the right kidney seen on CT of 10/12/17 has resolved. Urinary bladder contains 393 cc. The patient self catheterizes but had no catheter at the time of the examination. There is apparent prostatic enlargement although the prostate projects very prominently in to the floor of the urinary bladder. The possibility of superimposed bladder mass not excluded on this examination. CONCLUSION: No evidence of urinary tract obstruction. Enlarged prostate vs urinary bladder mass, cystoscopic correlation may be considered if clinically appropriate. 12/06/18: BILATERAL RIBS: Multiple films of the ribs were obtained. No rib fracture identified. Visualized portions of the lungs appear clear and well expanded. [facility] Medical History Cerebrovascular disease (Chronic) CKD (chronic kidney disease) (Acute) COPD (chronic obstructive pulmonary disease) (Chronic) Diabetes (Chronic) Diabetic gastroenteropathy (Acute) GERD (gastroesophageal reflux disease) (Chronic) HTN (hypertension) (Chronic) Hyperlipidemia (Acute) Seizure (Acute) Urinary retention (Acute) Surgical History EGD - MAC (07/28/16) Social History Smoking/Tobacco Use Status: Former Tobacco Use Drug use: Never Do you feel safe in your relationship?: Yes
--- NOTE | 2018-12-07 17:57 | PDOC.HHF2F ---
1. Encounter Date and Reason I certify that REJI THORPE was seen by Charlotte Weeks on 12/06/18 and that I had a [id number] encounter with this patient that meets the physician face to face encounter requirements. 2. Clinical Findings Supporting Skilled Need and Homebound Status I certify that home health services are medically necessary, include either intermittent shelter and/or physical/speech therapy, and that this patient is homebound in that absences from the home require considerable and taxing effort and are infrequent or of short duration, or are attributable to the need to receive medical care. [X] (a) Attached documentation from encounter provides clinical findings supporting skilled need and homebound status (including what assistance patient requires to leave the home). The encounter with the patient was in whole, or in part, for the following medical condition, which is the primary reason for home health care: UTI, urinary retention, SEIZURE DISORDER Fci: Needed to assist with intermittent catheterizations. Assess needs for assistance with medications. Monitor respiratory status, no rib fracture noted on x-ray, however, did have chest compressions, ensure use of incentive spirometer. Physical Therapy: Speech Therapy: Homebound: Unable to leave home without assistance. 3. Certification and Authentication I certify that I composed the above information based on my clinical judgement relating to this patient's medical condition and, if applicable, clinical findings communicated to me by the NPP or inpatient physician who performed the Home Health Referral. All further orders will be obtained through Dr. Magana (Community Based Physician - PCP)
== END 2018-12-06 17:43 | disposition home health service (06) ==
LOC: ER 12-04 01:17 → MS 12-04 02:09
PROVIDERS: Admitting Provider Family Medicine; Emergency Provider Emergency Medicine; PCP Family Medicine; Visit Provider Internal Medicine
DX: R41.82 Altered mental status, unspecified (principal); R55 Syncope and collapse; N39.0 Urinary tract infection, site not specified; R33.9 Retention of urine, unspecified; E11.22 Type 2 diabetes mellitus with diabetic chronic kidney disease; N18.9 Chronic kidney disease, unspecified; J44.9 Chronic obstructive pulmonary disease, unspecified; I69.354 Hemiplegia and hemiparesis following cerebral infarction affecting left non-dominant side; I12.9 Hypertensive chronic kidney disease with stage 1 through stage 4 chronic kidney disease, or unspecified chronic kidney disease; R07.89 Other chest pain; Z79.84 Long term (current) use of oral hypoglycemic drugs; R29.2 Abnormal reflex; B96.89 Other specified bacterial agents as the cause of diseases classified elsewhere
CPT/HCPCS: 36415; 51701; 76770; 80048; 80053; 82550; 85027; 87077; 93005; 94640; 96365; 96367; 99213; 99215; 99220; 99222; 99233; 99239; 99285; NC; 70450; 71046; 71110; 81003; 81015; 83735; 84443; 84484; 85025; 87086; 87186; 93010; 99217; 99226; G0378; J0696; J1644; J1940; J1953

== ENCOUNTER → 2018-12-05 08:08 | Outpatient (BNVA) | payer MEDICARE, SELFPAY | PROVIDERS: PCP Family Medicine; Visit Provider Psychiatry & Neurology Neurology | DX: R69 Illness, unspecified (principal) ==

== ENCOUNTER 2018-12-13 02:16 | Outpatient (CLI) | payer MEDICARE, SELFPAY ==
--- NOTE | 2019-01-03 12:54 | ZIOP_ITS ---
DATE OF DICTATION: January 03, 2019 STUDY INDICATION: Syncope. REQUESTING PROVIDER: Isak Magana M.D. FINDINGS: The patient was monitored for 13 days and 7 hours. The predominant underlying rhythm was sinus rhythm. Average heart rate in sinus rhythm 89 bpm, range 57 to 149 bpm. There was rare ectopy. There was a single 7-beat ventricular run, average heart 196 bpm. The patient was in atrial fibrillation 3% of the time. Average heart rate in atrial fibrillation 154 bpm, range 102 to 122 bpm. The longest episode lasted 9 hours and 6 minutes. There were six episodes of supraventricular tachycardia, average heart rate 159 bpm, range 97 to 210 bpm. These episodes are most likely resemble bursts of atrial fibrillation. No pauses greater than 3 seconds. No high-degree heart block. No patient events. FINAL INTERPRETATION: Paroxysmal atrial fibrillation with rapid ventricular response. One episode of ventricular tachycardia of unclear significance.
== END 2018-12-13 02:36 ==
PROVIDERS: PCP Family Medicine; Visit Provider Family Medicine
DX: R55 Syncope and collapse (principal); I48.0 Paroxysmal atrial fibrillation; I47.2 Ventricular tachycardia
CPT/HCPCS: 0296T

== ENCOUNTER 2018-12-20 14:06 | Inpatient (IN) | payer MEDICARE, SELFPAY ==
[2018-12-20] VITALS (107 sets, daily range): BP systolic 75–150; BP diastolic 39–114; PULSE 71–168; RESP 4–53; TEMP 36.3–36.7; O2SAT 91–99
--- NOTE | 2018-12-20 14:04 | W.ED.GENAD ---
Discharge Plan Disposition Patient Disposition: [facility] INPATIENT Condition: Critical Discharge Details Chief Complaint: SOB Clinical Impression: Acute respiratory failure, Sepsis, Atrial fibrillation with RVR, Septic shock Admit Date/Time: 12/20/18 16:29 Admit Provider: Yoselyn Hdz Attending Provider: Yoselyn Hdz Primary Care Provider: Isak Magana ED Provider: Alexander De Anda Discharge Data Discharge Date/Time-TO BE ENTERED AT DEPARTURE: 12/20/18 17:17 Medical Decision Making Upon my evaluation, this patient had a high probability of imminent or life-threatening deterioration, which required my direct attention, intervention, and personal management. I have personally provided 45 minutes of critical care time exclusive of time spent on separately billable procedures. Time includes review of laboratory data, radiology results, discussion with consultants, and monitoring for potential decompensation. Interventions were performed as documented above. 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 He was recently discharged around 2 weeks ago. Over the last 4 to 5 days he has not been taking any medications, he has not been eating or drinking. He normally self catheterizes daily. Is notably short of breath today and called EMS. Oxygen was initially in the high 80s, heart rate was in the 160s to 170s. Patient was started on CPAP however he did start to get nauseous with EMS and CPAP was removed. Upon arrival here on supplemental oxygen he was saturating in the mid 90s. Notable tachypneic though. Blood pressure stable. Heart rate in the 160s. EKG showed A. fib. Dry mucous membranes, no pitting edema. Lung sounds diminished throughout. No crackles. Differential includes significant dehydration, acute kidney injury, medical noncompliance leading to A. fib with RVR, and sepsis. We will start antibiotics, give Cardizem, rehydrate, start BiPAP after Zofran, reassess. We will also give him a loading dose of Keppra as he has not taken any for the last 5 days. 4:42 PM Patient's laboratory work-up is returned, mild white count at 12, mild left shift at 9.28 for absolute neutrophils, no bands. Electrolytes are stable, renal function demonstrates notably elevated creatinine at 2.56, which she has been higher in the past, but this is certainly elevated compared to normal. Respiratory rate is notably improved with BiPAP. Work of breathing is notably improved with DuoNeb's. Troponin is 0.06, proBNP elevated at 1700. TSH normal, urinalysis shows notable WBCs however negative for leuk esterase and nitrates. Lactate notably elevated at 2.5. Chest x-ray read as negative per Dr. Mccabe. Patient was given an initial 15 mg bolus of Cardizem, and then a repeat bolus of 10 mg is also given. Is notably improved his heart rate to the 120s, however is also brought his pressure down, systolic lowest went down to the 70s. Central line was placed for definitive access. Bedside ultrasound was used to evaluate the inferior vena cava, however secondary to the patient's habitus was difficult to fully visualize the IVC. IJ's were notably plump, without signs of edgar or severe volume depletion. The patient has tolerated 2 L of normal saline at this time, I am hesitant about adding additional fluids. Urinalysis demonstrates notable evidence of increase in WBCs and bacteria however it is leukoesterase and nitrite negative. Lactate being high with his white count I am uncertain as to the exact etiology but I am concerned for an infectious component. He may be undiagnosed pneumonia in conjunction with COPD at this point. We will add vancomycin and Zosyn currently. Eventually the patient's heart rate eventually went back up to 140 on the Cardizem drip of 5. We increased it to 15. Vasopressin was hung but not started as his pressures have stabilized the high 90s systolic. With the patient's atrial fibrillation and heart rate that is having difficulty resolving with therapy we we will add 2.5 mg of metoprolol. Case was discussed with Dr. Hdz, she will start the patient on heparin, has PE at this time is less likely but still on the differential. And we are unable to get CT angiogram secondary to the patient's current renal function. Patient will be admitted to the ICU for further management. I have extensively reviewed the treatment plan with the patient. I have addressed all patient concerns at this time. I have also discussed the plan with the admitting physician and they agree with the current assessment and plan and have agreed to assume responsibility for the patient. All parties demonstrate verbal understanding and agreement with our assessment and plan at this time. EKG 14: 13 Rate 173, QTc 417, QRS 67, atrial fibrillation with a rapid ventricular response, notable artifact secondary to the patient's breathing. No significant ST elevation or depression that can be appreciated currently Procedure: Internal Jugular Central Venous Catheter Indication: Hemodynamic monitoring/Intravenous access PROCEDURE SUMMARY: A time-out was performed. The patient?s right neck region was prepped and draped in sterile fashion using chlorhexidine scrub. Anesthesia was achieved with 1% lidocaine. The internal jugular vein was accessed under ultrasound guidance using a finder needle.Venous blood was withdrawn. A guidewire was advanced through the needle. A small incision was made with a 10 blade scalpel and the dilator was advanced over the guidewire until appropriate dilation was obtained. The dilator was removed and a triple lumen catheter was advanced over the guidewire and secured into place with 2 simple interrupted sutures. At time of procedure completion, all ports aspirated and flushed properly. Post-procedure x-ray shows the tip of the catheter within the superior vena cava. ESTIMATED BLOOD LOSS: 5ml?s The patient tolerated the procedure well there were no complications. HPI General Date/Time Provider Initiated Documentation: 12/20/18 14:19. 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 who presents today for shortness of breath. He was recently discharged on 12/07 after prolonged admission with seizures, urinary issues, and other complications. Since being home he was doing well except for the last 4 to 5 days the patient is not been feeling well. Because of this he has not been eating or drinking, he has not taken any of his meds for the last 4 days, and he has been progressively more short of breath. He contacted EMS today because of his significant shortness of breath. Upon EMS arrival he was in the high 80s, notably tachypneic and in mild respiratory distress. He was started on CPAP, but unfortunately felt nauseous, CPAP was removed and he had an episode of vomiting. He was notably tachycardic in the 160s to 170s per EMS. Blood pressure was stable. He was afebrile. Currently aside for shortness of breath patient denies any other complaints. He denies any chest pain or abdominal pain. He does have a history of stroke but denies any history of [place]. Related Data Home Medications Medication Instructions Recorded Confirmed Novolog Flexpen U-100 Insulin 22 unit SQ AC 02/08/15 12/20/18 aspirin 81 mg PO DAILY 02/08/15 12/20/18 hydrochlorothiazide 25 mg PO DAILY 02/08/15 12/20/18 losartan 50 mg PO DAILY 02/08/15 12/20/18 multivitamin 1 tab PO DAILY 02/08/15 12/20/18 sertraline 100 mg PO DAILY 02/08/15 12/20/18 omeprazole 40 mg PO BID #60 tab-cap 08/14/16 12/20/18 Novolog Flexpen U-100 Insulin 0 units SUB-Q 0800,1200,1700 pen 10/18/17 12/20/18 atorvastatin [Lipitor] 80 mg PO HS tab 10/18/17 12/20/18 levetiracetam [Keppra] 500 mg PO BID tab 10/18/17 12/20/18 Januvia 50 mg PO DAILY 12/04/18 12/20/18 Spiriva with HandiHaler 1 cap INHALATION DAILY 12/04/18 12/20/18 albuterol sulfate [ProAir HFA] 2 puff INHALATION Q6H PRN 12/04/18 12/20/18 bisacodyl 10 mg VA DAILY PRN 12/04/18 12/20/18 diltiazem HCl [DILT-XR] 240 mg PO DAILY 12/04/18 12/20/18 finasteride 5 mg PO DAILY 12/04/18 12/20/18 fluticasone propion-salmeterol 1 inh INHALATION BID 12/04/18 12/20/18 [Advair Diskus] melatonin 3 mg PO HS PRN 12/04/18 12/04/18 cefpodoxime 200 mg PO BID #22 tab 12/06/18 polyethylene glycol 3350 [Miralax] 17 gm PO BID #119 gm 12/06/18 tamsulosin 0.8 mg PO DAILY #60 cap 12/06/18 12/20/18 acetaminophen 650 mg PO Q4H PRN PRN 12/20/18 12/20/18 dulaglutide [Trulicity] See Rx Instructions .ROUTE .COMPLEX 12/20/18 12/20/18 insulin glargine [Basaglar KwikPen 60 unit SUBCUT BID 12/20/18 12/20/18 U-100 Insulin] Previous Rx's Medication Instructions Recorded Novolog Flexpen U-100 Insulin 0 units SUB-Q 0800,1200,1700 pen 10/18/17 atorvastatin [Lipitor] 80 mg PO HS tab 10/18/17 levetiracetam [Keppra] 500 mg PO BID tab 10/18/17 cefpodoxime 200 mg PO BID #22 tab 12/06/18 polyethylene glycol 3350 [Miralax] 17 gm PO BID #119 gm 12/06/18 tamsulosin 0.8 mg PO DAILY #60 cap 12/06/18 Allergies Allergy/AdvReac Type Severity Reaction Status Date / Time No Known Allergies Allergy Unverified 12/03/18 22:18 General KAELA: 3 Review of Systems Review of Systems All systems reviewed & are unremarkable except as noted in HPI and below PFSH Social History Smoking/Tobacco Use Status: Former Tobacco Use Alcohol Intake: never Drug use: Never Substance use type: does not use Do you feel safe in your relationship?: Yes Exam Narrative Exam Narrative: 1.Const: Disheveled, unfortunately urinated on himself. 2.Eyes: PERRL, no conjunctival injection, and symmetrical lids. 3.ENT: Atraumatic external nose and ears. Extremely dry MM. Neck: Symmetric, trachea midline, No thyromegaly. 4.CVS: +S1/S2, No murmurs or gallops. Notable tachycardia peripheral pulses 2+ and equal in all extremities. Brisk capillary refill in all extremities. 5.RESP: notable tachypnea, decreased breath sounds throughout. No wheezes or rhonchi. 6.GI: Soft, Nontender/Nondistended, No hepatosplenomegaly. No guarding or rebound. 7.MSK: Normocephalic/Atraumatic, Extremities w/o deformity or ttp No cyanosis or clubbing, Normal movement of all extremities, no pitting in lower extremities, no calf tenderness or edema. 8.Skin: Warm, Dry. No rashes or lesions. 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 Sensation grossly intact, no focal neurologic deficits. 10.Psych: (AAO) x3. Appropriate mood and affect Procedures Central Line Placement Right IJ: Time Out Performed: Yes Patient Placed on Monitor/Pulse Ox: Yes MD Prep: mask, gown and gloves Central Line Prep: Chlorhexidine scrub Local Anesthetic: Lidocaine 1% Amount of anesthesia used (mL): 3 Ultrasound Used for Placement: Yes Central Line Lumen Inserted: triple Post Procedure: good blood return Post Procedure X-Ray: tip of catheter in good position Patient Tolerated Procedure: well Complications: none
[2018-12-20] MEDS: Normal Saline 1,000 ML 1000 ML IV ×2 (14:10→14:22)
[2018-12-20] MEDS: dilTIAZem 25 MG/5 ML VIAL (14:14)
--- NOTE | 2018-12-20 14:25 | NUR.NOTE ---
Nursing Note: call out to pharmacy for Gabbym drip, states that they will bring it shortly.
[2018-12-20 14:26] LABS: Abs Immature Grans 0.03 k/cumm (0.0-0.09); Absolute Basophil Count 0.01 k/cumm (0.0-0.2); Absolute Eosinophil Count 0.53 k/cumm (0.0-0.7); Absolute Lymphocyte Count 0.98 k/cumm (1.2-3.4); Absolute Monocyte Count 1.16 k/cumm (0.11-0.7); Basophils % 0.1; Eosinophils % 4.4; HGB 14.1 g/dL (13.5-17.5); Immature Grans % 0.3; Lymphocytes % 8.2; Mean Corp. HGB Concentration 33.6 g/dL (32.0-36.0); Mean Corpuscular Hemoglobin 30.5 pg (27.0-33.0); Mean Corpuscular Volume 90.9 fL (80-95); Mean Platelet Volume 10.5 fL (8.0-11.0); Monocytes % 9.7; Neutrophils % 77.3; Platelet Count 328 x1000/uL (130-400); RBC 4.62 m/cumm (4.50-6.00)
[2018-12-20 14:26] LABS: Lactate 2.5 mmol/L (0.6-1.4)
[2018-12-20] MEDS: levETIRAcetam 1,000 MG in Normal Saline 100 ML 400 MG IVPB (14:26)
[2018-12-20 14:27] LABS: Absolute Neutrophil Count 9.28 k/cumm (1.2-6.7)
--- NOTE | 2018-12-20 14:27 | DI.RAD_ITS ---
SYMPTOMS/DIAGNOSIS: SHORTNESS OF BREATH, COUGH, WHEEZE PORTABLE CHEST: Comparison is made with [id number]. The heart size is normal. Leads are seen over the chest. The lungs appear clear. No pneumothorax, infiltrate or effusion is seen. IMPRESSION: Negative portable chest.
[2018-12-20] MEDS: methylPREDNISolone SUCC 125 MG VIAL IVP (14:32)
--- NOTE | 2018-12-20 14:37 | NUR.NOTE ---
Nursing Note: Second call out to pharmacy for [facility]
[2018-12-20] MEDS: dilTIAZem 125 MG in Normal Saline 100 ML IV (14:40)
--- NOTE | 2018-12-20 14:45 | NUR.NOTE ---
Nursing Note: Patient resting in stretcher, appears to be breathing easier. Respiratory rate slower, pt now able to speak full sentences without difficulty.
[2018-12-20] MEDS: dilTIAZem 25 MG/5 ML VIAL 10 MG IVP (14:59)
[2018-12-20 15:04] LABS: ALT 32 U/L (16-63); AST 30 U/L (15-37); Albumin 3.3 g/dL (3.4-5.0); Alkaline Phosphatase 150 U/L (46-116); Anion Gap 14.1 mmol/L (3-11); BUN 37 mg/dL (7-18); Bilirubin, Total 0.7 mg/dL (0.2-1.0); CO2 24.9 mmol/L (21.0-32.0); CREATININE 2.56 mg/dL (0.70-1.30); Chloride 100 mmol/L (98-107); Estimated GFR 24.69 (mL/min/1.73m2); Glucose 351 mg/dL (70-100); NT-proBNP 1762 pg/mL; Potassium 4.5 mmol/L (3.5-5.1); Sodium 139 mmol/L (136-145); TSH (W/Ref FT4) 0.99 uIU/mL (0.36-3.74); Total Protein 7.8 g/dL (6.4-8.2); Troponin I 0.06 ng/mL (0.00-0.06)
[2018-12-20 15:12] LABS: PTT Activated 25.6 sec (21.0-31.4); Prothrombin Time 9.9 sec (9.3-11.0)
--- NOTE | 2018-12-20 15:15 | NUR.NOTE ---
Nursing Note: call out to pharmacy for vancomycin
--- NOTE | 2018-12-20 15:22 | NUR.NOTE ---
Nursing Note: Whitt placed per MD De Anda. Yellow, cloudy, foul smelling urine draining. pt tolerated well.
[2018-12-20] MEDS: PIPERACILLIN/TAZO 3.375 GM in Normal Saline 50 ML IVPB ×2 (15:33→21:56)
[2018-12-20 15:34] LABS: Bilirubin Negative (Negative); Blood Moderate (Negative); Clarity Cloudy (Clear); Glucose 250 mg/dL (Negative); Ketones Negative (Negative); Leukocyte Esterase Negative (Negative); Nitrite Negative (Negative); Specific Gravity 1.025 (1.005-1.025); Urobilinogen 0.2 EU/dL (Up TO 0.2); pH 5.5 (5-8)
[2018-12-20 15:45] LABS: Bacteria Many HPF (Negative); Crystals Negative HPF (Negative); Epithelial Cells Negative HPF (Negative); Mucus Negative (Negative); WBC >50 HPF (0-5)
[2018-12-20 15:46] LABS: C & S Indicated? Yes
--- NOTE | 2018-12-20 15:51 | NUR.NOTE ---
Nursing Note: call out to x-ray tech, for portable x-ray to confirm central line placement.
--- NOTE | 2018-12-20 15:55 | NUR.NOTE ---
Nursing Note: Cardizem drip continued at 5mg/hr per MD De Anda, whom states not to titrate at this time.
--- NOTE | 2018-12-20 16:05 | DI.RAD_ITS ---
SYMPTOM/DIAGNOSIS: CONFIRMATION OF CENTRAL LINE PLACEMENT PORTABLE AP CHEST AT 352 PM: Comparison is made with earlier in the day. Heart size and pulmonary vasculature are stable and within normal limits. There are no focal consolidating infiltrates, effusions or pneumothoraces identified. There has been interval placement of a central venous catheter, the tip of the catheter is in good position at the superior vena cava. IMPRESSION: New right sided central venous catheter. The tip of which is in good position in the superior vena cava, otherwise no change in appearance of the chest xray compared to the prior examination.
--- NOTE | 2018-12-20 16:17 | NUR.NOTE ---
Nursing Note: Cardizem increased to 15 ml/hour per MD De Anda
--- NOTE | 2018-12-20 16:33 | DI.VRAD_ITS ---
EXAM: XR Chest, 1 View EXAM DATE/TIME: 12/20/2018 3:53 PM CLINICAL HISTORY: 73 years old, male; Shortness of breath; Patient HX: Post central line placement TECHNIQUE: Imaging protocol: XR of the chest, 1 view. COMPARISON: CR XR PORTABLE CHEST AP 12/20/2018 2:15 PM. 12/03/2018. FINDINGS: Lungs: There are mild streaky right infrahilar opacities which could represent atelectasis. Infection not excluded. Pleural space: No pneumothorax. Heart/Mediastinum: Mediastinum is measuring mildly widened at 8 cm (normal for upright chest is 6 cm or less). However, this is unchanged. Position/AP technique may be contributing. Heart size is within normal limits. Vasculature: An electronic device overlies the left axillary region. There is a new right-sided line with tip overlying the SVC. Bones/joints: Skeletal degenerative changes. IMPRESSION: 1. New right-sided line with tip overlying SVC. No pneumothorax. 2. Mild streaky right infrahilar opacities favored to represent atelectasis. Infection not excluded. Dictated and Authenticated by: Loreta Robbins MD. Ordering:CARLEEN Munoz MD
[2018-12-20 16:40] LABS: BE -2.4 mmol/L (-3-3); HCO3 23 mmol/L (22-28); pCO2 39 mmHg (34-47); pH 7.37 (7.35-7.45); pO2 85 mmHg (83-108); sO2 97 % (94-98); tCO2 21 mmol/L (22-29)
[2018-12-20] MEDS: Metoprolol 5 MG/5 ML VIAL 2.5 MG IVP (16:40)
[2018-12-20 16:42] LABS: FIO2 30 %; Site Right Radial
--- NOTE | 2018-12-20 17:14 | HPE_ITS ---
Date of service: 12/20/18 Time of Service: 17:18 Assessment and Plan (1) Sepsis: Current visit: Yes Status: Acute Likely due to pneumonia we are not actually seeing on imaging because the patient is dehydrated. Will continue IVF, broad spectrum abx (vancomycin/zosyn) initiated in ED. No UTI by UA. Blood and sputum C&S are ordered. Monitor in the ICU. Trend lactates. Low threshold to initiate pressors. (2) Acute respiratory failure with hypoxia: Current visit: Yes Status: Acute Likely due to pneumonia/acute exacerbation of COPD. Currently on BiPAP. Wean this as tolerated. Treat below conditions with IV antibiotics, steroids. Scheduled and prn nebs. I am not going to continue advair while he is in rapid Afib, but will provide inhaled steroids without the long acting beta agonist. PE cannot be definitively ruld out - will obtain VQ scan tomorrow. Cover empirically with heparin gtt. (3) Acute exacerbation of chronic obstructive pulmonary disease (COPD): Current visit: Yes Status: Acute As above (4) Pneumonia: Current visit: Yes Status: Suspected As above (5) Atrial fibrillation with rapid ventricular response: Current visit: Yes Status: Acute On cardizem gtt, IVF. Treat infection/underlying pulmonary disease. Monitor in the ICU. Does have phenylephrine ordered should his BP's dip again. Heparin gtt for anticoagulation. Obtain an echo. (6) Seizure disorder: Current visit: No Status: Chronic Convert keppra to IV while NPO on BIPAP. (7) Diabetes type 2, controlled: Current visit: No Status: Chronic Hold oral meds. Decrease long acting insulin. Cover with moderate corrective scale. I do expect some steroid induced hyperglycemia, but he is NPO. Will adjust insulins on 12 hour data. Qualifiers: Diabetes mellitus penitentiary insulin use: with intermodal customer service use Diabetes mellitus complication status: with unspecified complications Qualified Code(s): E11.8 - Type 2 diabetes mellitus with unspecified complications; Z79.4 - snf (current) use of insulin (8) Acute kidney injury superimposed on chronic kidney disease: Current visit: Yes Status: Acute IVF. Vicente. Monitor I/O's, daily weights. (9) DVT prophylaxis: Current visit: Yes Status: Acute Start therapeutic heparin gtt (for both Afib and suspected PE) (10) Discharge planning issues: Current visit: Yes Status: Acute Full code PT/OT consults Total Critical Care Time 75 minutes. History of Present Illness Chief Complaint: I couldn't breathe Narrative: Mr Panchal is a 73 year old male with PMHx of IDDM2, recent episode of syncope, UTI's in setting of chronic urinary retention (he self-catheterizes at home), CKD stage 3 with a baseline creatinine of 1.8-1.9, seizure disorder, who was brought to [facility] ED today after the patient's home health nurse evaluation. The patient states that for the last 2 days or so he has been short of breath. He endorses subjective fevers, denies chest pain, endorses nausea/vomiting. Denies abdominal pain and diarrhea. He hasn't been taking his medications since yesterday. The patient's son was very concerned about him and called his home health agency asking for a nursing visit today. When EMS arrived, the patient was in rapid Afib (Afib is a new diagnosis to the patient, as far as he and his son know), with HR up to 170's. He was in respiratory distress and hypoxic to low 80's on room air; he was placed on CPAP for transport and nearly vomited into it - it was removed prior to this happening. In the ED, he was transitioned to BiPAP. He was treated with solumedrol, nebs. He was covered with empiric broad spectrum antibiotics for HCAP/aspiration pneumonia. For his new onset rapid atrial fibrillation, he was started on cardizem drip. The BP did dip down to 75/60. This improved to the latest BP of 105/86 with IVF. He was also treated with one small bolus of IV metoprolol 2.5 mg. While the patient was hypotensive, a CVL was inserted in anticipation of possible vasopressor therapy, which the patient has not actually required up until this point. It is worth noting that the patient has a Zio p atch on as he being monitored due to the history of recent syncope. Patient's interview is significantly limited due to the fact that he is on BiPAP in the ED. He does clearly answer that he would like to be full code. Review of Systems Review of Systems It was difficult to perform a full review of systems due to patient's respiratory status and being on BiPAP. Please, see HPI. PFSH Social History Smoking/Tobacco Use Status: Former Tobacco Use Alcohol Intake: never Drug use: Never Substance use type: does not use Do you feel safe in your relationship?: Yes Meds Home Medications Medication Instructions Recorded Confirmed Type Novolog Flexpen U-100 Insulin 22 unit SQ AC 02/08/15 12/20/18 History aspirin 81 mg PO DAILY 02/08/15 12/20/18 History hydrochlorothiazide 25 mg PO DAILY 02/08/15 12/20/18 History losartan 50 mg PO DAILY 02/08/15 12/20/18 History multivitamin 1 tab PO DAILY 02/08/15 12/20/18 History sertraline 100 mg PO DAILY 02/08/15 12/20/18 History omeprazole 40 mg PO BID #60 tab-cap 08/14/16 12/20/18 History Novolog Flexpen U-100 Insulin 0 units SUB-Q 0800,1200,1700 pen 10/18/17 12/20/18 Rx atorvastatin [Lipitor] 80 mg PO HS tab 10/18/17 12/20/18 Rx levetiracetam [Keppra] 500 mg PO BID tab 10/18/17 12/20/18 Rx Januvia 50 mg PO DAILY 12/04/18 12/20/18 History Spiriva with HandiHaler 1 cap INHALATION DAILY 12/04/18 12/20/18 History albuterol sulfate [ProAir HFA] 2 puff INHALATION Q6H PRN 12/04/18 12/20/18 History bisacodyl 10 mg NC DAILY PRN 12/04/18 12/20/18 History diltiazem HCl [DILT-XR] 240 mg PO DAILY 12/04/18 12/20/18 History finasteride 5 mg PO DAILY 12/04/18 12/20/18 History fluticasone propion-salmeterol 1 inh INHALATION BID 12/04/18 12/20/18 History [Advair Diskus] melatonin 3 mg PO HS PRN 12/04/18 12/04/18 History cefpodoxime 200 mg PO BID #22 tab 12/06/18 Rx polyethylene glycol 3350 [Miralax] 17 gm PO BID #119 gm 12/06/18 Rx tamsulosin 0.8 mg PO DAILY #60 cap 12/06/18 12/20/18 Rx acetaminophen 650 mg PO Q4H PRN PRN 12/20/18 12/20/18 History dulaglutide [Trulicity] See Rx Instructions .ROUTE .COMPLEX 12/20/18 12/20/18 History insulin glargine [Basaglar KwikPen 60 unit SUBCUT BID 12/20/18 12/20/18 History U-100 Insulin] Allergies Allergy/AdvReac Type Severity Reaction Status Date / Time No Known Allergies Allergy Unverified 12/03/18 22:18 Exam Narrative Exam Narrative: General: Elderly male, A&Ox3, on BiPAP, having some respiratory distress with it on/tachypneic, answering some but not all questions, speaking in 1-2 word phrases Neurological: A&Ox3, no obvious focal deficits - his baseline Psychiatric: Anxious Skin: visible skin intact HEENT: Atraumatic, normocephalic, EOMI, difficult to assess oropharynx with BiPAP on except to say that he still clearly has dentures on with the BiPAP on. No submandibular or cervical lymphadenopathy, no goiter or JVD Cardiovascular: Tachycardic, irregularly irregular rhyhm, I cannot clearly hear a murmur Lungs: Diminished breath sounds in Bilateral upper lung huerta, quiet/distant rhonchi heard at B bases Gastrointestinal: abdomen is soft, nontender, nondistended, + BS Genitourinary: has a vicente Extremities: no e/c/c BLE's, 2+ pedal pulses B Results Imaging Additional studies: CXR #1: Negative portable chest. CXR #2: 1. New right-sided line with tip overlying SVC. No pneumothorax. 2. Mild streaky right infrahilar opacities favored to represent atelectasis. Infection not excluded. EKG: Afib, HR 173, diffuse ST-T changes Labs : 12/20/18 14:10 12/20/18 14:10 Laboratory Results - last 24 hr 12/20/18 12/20/18 12/20/18 14:10 14:10 14:10 WBC 12.00 H RBC 4.62 Hgb 14.1 Hct 42.0 MCV 90.9 MCH 30.5 MCHC 33.6 RDW 15.0 H Plt Count 328 D MPV 10.5 Immature Gran % 0.3 Neutrophils % 77.3 Lymphocytes % 8.2 Monocytes % 9.7 Eosinophils % 4.4 Basophils % 0.1 Absolute Neutrophils 9.28 H Absolute Lymphocytes 0.98 L Absolute Monocytes 1.16 H Absolute Eosinophils 0.53 Absolute Basophils 0.01 PT 9.9 INR 1.0 APTT 25.6 Sample Site pCO2 pO2 O2 Saturation ABG pH ABG HCO3 ABG Total CO2 ABG Base Excess FiO2 Sodium 139 Potassium 4.5 Chloride 100 Carbon Dioxide 24.9 Anion Gap 14.1 H BUN 37 H Creatinine 2.56 H Estimated GFR/1.73 m2 24.69 Glucose 351 H Lactate Calcium 9.0 Total Bilirubin 0.7 AST 30 ALT 32 Alkaline Phosphatase 150 H Troponin I 0.06 NT-Pro-B Natriuret Pep 1762 H Total Protein 7.8 Albumin 3.3 L TSH 0.99 Urine Color Urine Clarity Urine pH Ur Specific [place] Urine Protein Urine Ketones Urine Blood Urine Nitrite Urine Bilirubin Urine Urobilinogen Ur Leukocyte Esterase Urine RBC Urine WBC Ur Epithelial Cells Urine Crystals Urine Bacteria Urine Mucus Urine Other Ur Culture Indicated? Urine Glucose 12/20/18 12/20/18 12/20/18 14:17 15:24 16:30 WBC RBC Hgb Hct MCV MCH MCHC RDW Plt Count MPV Immature Gran % Neutrophils % Lymphocytes % Monocytes % Eosinophils % Basophils % Absolute Neutrophils Absolute Lymphocytes Absolute Monocytes Absolute Eosinophils Absolute Basophils PT INR APTT Sample Site Right radial pCO2 39 pO2 85 O2 Saturation 97 ABG pH 7.37 ABG HCO3 23 ABG Total CO2 21 L ABG Base Excess -2.4 FiO2 30 Sodium Potassium Chloride Carbon Dioxide Anion Gap BUN Creatinine Estimated GFR/1.73 m2 Glucose Lactate 2.5 H* Calcium Total Bilirubin AST ALT Alkaline Phosphatase Troponin I NT-Pro-B Natriuret Pep Total Protein Albumin TSH Urine Color Yellow Urine Clarity Cloudy Urine pH 5.5 Ur Specific [place] 1.025 Urine Protein >=300 H Urine Ketones Negative Urine Blood Moderate H Urine Nitrite Negative Urine Bilirubin Negative Urine Urobilinogen 0.2 Ur Leukocyte Esterase Negative Urine RBC Urine WBC >50 Ur Epithelial Cells Negative Urine Crystals Negative Urine Bacteria Many Urine Mucus Negative Urine Other Ur Culture Indicated? Yes Urine Glucose 250 H Last Vital Signs Pulse 93 H 12/20/18 16:51 Resp 26 H 12/20/18 16:51 BP 105/86 08/27/19 16:51 Pulse Ox 96 12/20/18 16:51
[2018-12-20] MEDS: Normal Saline Flush 10 ML SYR ×2 (17:43→21:56)
[2018-12-20] MEDS: Normal Saline 1,000 ML 150 ML IV ×2 (18:10→23:56)
[2018-12-20] MEDS: Albuterol/Ipratropium 3 ML UPD VIAL UPD ×2 (18:10→23:51)
[2018-12-20] MEDS: Insulin Aspart 300 UNITS/3 ML PEN SC ×2 (18:18→23:50)
[2018-12-20] MEDS: Budesonide 0.25 MG/2 ML UPD VIAL UPD (18:24)
[2018-12-20 20:12] LABS: Lactate 1.1 mmol/L (0.6-1.4)
[2018-12-20 20:35] LABS: Troponin I 0.12 ng/mL (0.00-0.06)
[2018-12-20] MEDS: methylPREDNISolone SUCC 125 MG VIAL 80 MG IVP (21:56)
[2018-12-20] MEDS: Insulin Glargine 300 UNITS/3 ML PEN 30 UNITS SC (22:02)
[2018-12-21] VITALS (91 sets, daily range): BP systolic 95–157; BP diastolic 44–112; PULSE 82–110; RESP 1–35; TEMP 36.5–37; O2SAT 91–100
[2018-12-21] MEDS: levETIRAcetam 500 MG in Normal Saline 100 ML 400 MG IVPB (01:03)
[2018-12-21 02:09] LABS: Lactate 2.5 mmol/L (0.6-1.4)
[2018-12-21] MEDS: PIPERACILLIN/TAZO 3.375 GM in Normal Saline 50 ML IVPB ×4 (03:27→22:53)
[2018-12-21] MEDS: Normal Saline Flush 10 ML SYR IVP ×6 (03:27→22:51)
--- NOTE | 2018-12-21 04:42 | IN_ITS ---
Date of service: 12/21/18 Time of Service: 09:51 PT Notes Inpatient Physical Therapy Evaluation Date: 12/21/2018 Referring Doctor: Yoselyn Hdz MD PT Orders: PT CONSULT: Limited ability Precautions: Fall. Standard. Activity as tolerated Patient Profile/Admitting Diagnosis: Patient is a 73-year-old male with past medical history significant for cerebrovascular disease, COPD, and CKD who presented to the ED on 12/20/2018 with chief presentation on shortness of breath. Patient was diagnosed with sepsis, acute respiratory failure, COPD exacerbation, suspected pneumonia, atrial fibrillation with rapid ventricular response, and acute kidney injury superimposed on chronic kidney disease. PMHX: Medical History Cerebrovascular disease (Chronic) CKD (chronic kidney disease) (Acute) COPD (chronic obstructive pulmonary disease) (Chronic) Diabetes (Chronic) Diabetic gastroenteropathy (Acute) GERD (gastroesophageal reflux disease) (Chronic) HTN (hypertension) (Chronic) Hyperlipidemia (Acute) Seizure (Acute) Urinary retention (Acute) Surgical History EGD - MAC (07/28/16) Social History/Home Situation: Patient lives with son Hector in a split level home with 6 steps to enter with a rail on the right going up. He states that he has 7 dina steps to get into house. He reports that he used to receive Meals on Wheels but his son has been able to manage preparing his meals. Patient is alone during the day as the son works full-time. He is able to manage in-house ambulation using his 4 wheeled walker. He does not go out of the house without assistance. He states that he is able to walk about 10 feet at home each time before he gets tired. Patient was beginning to receive skilled home health physical therapy services but was originally referred for hospital admission due to worsening shortness of breath. Current Functional Limitations: Need for an assistive ambulatory device physical assistance for all transfer and ambulation task performance Equipment Owned/DME: 4WW, FWW, SC, shower seat Subjective: Patient is agreeable to a PT consult. He reports feeling significantly better today in terms of breathing and fatigue level. He reports no headache, chest pain, and dizziness throughout PT session. He is agreeable to resuming skilled physical therapy services discharged home. Objective: General Observation: Patient seen resting on his bedside chair upon arrival of PT and PT student. Right internal central venous catheter in situ. Whitt catheter in place. Telemetry monitoring in place. Oxygen supplementation discharged early this morning. Mental Status: Alert and oriented as to person, place, time, purpose Pain: 0/10 Vital Signs: Oxygen saturation ranged from 88% to 94% throughout PT session. HR ranged from 96 to 110 bpm. ROM: Right Upper Extremity: Shoulder Flexion WFL. Shoulder abduction WFL. Elbow flexion WFL. Wrist flexion WFL. Functional opening and closing of hand WFL. Left Upper Extremity: Shoulder Flexion WFL. Shoulder abduction WFL. Elbow flexion WFL. Wrist flexion WFL. Functional opening and closing of hand WFL. Right Lower Extremity: Hip flexion WFL. Hip abduction WFL. Knee flexion WFL. Ankle dorsiflexion WFL. Ankle plantarflexion WFL. Left Lower Extremity: Hip flexion WFL. Hip abduction WFL. Knee flexion WFL. Ankle dorsiflexion WFL. Ankle plantarflexion WFL. Strength: Right Upper Extremity: Shoulder flexors 4/5. Shoulder abductors 4/5. Elbow flexors 4/5. Elbow extensors 4/5. Public Information Specialist strong. Left Upper Extremity: Shoulder flexors 4/5. Shoulder abductors 4/5. Elbow flexors 4/5. Elbow extensors 4/5. Public Information Specialist strong. Right Lower Extremity: Hip flexors 4-/5. Hip abductors 4-/5. Knee flexors 4/5. Knee extensors 4-/5. Ankle dorsiflexors 4/5. Ankle plantarflexors 4/5. Left Lower Extremity:Hip flexors 4-/5. Hip abductors 4-/5. Resisted gravity- eliminated hip ER less than on the R side. Knee flexors 4/5. Knee extensors 4- /5. Ankle dorsiflexors 4/5. Ankle plantarflexors 4/5. Sensation: Intact as to pain and pressure on bilateral lower extremities. Bed Mobility/Transfers: Sit to stand minimal assist Stand to sit minimal assist Bed to chair minimal assist Chair to bed minimal assist Gait: Patient was able to tolerate level surface ambulation in ICU hallway for 45 feet +60 feet using front-wheeled walker with minimal assist of PT and IV pole management as well as wheelchair follow on student PT and nurse with patient demonstrating mild breathlessness and with oxygen saturation ranging from 88% to 94% on room air. Decreased gait velocity observed decreased step height and length observed. Minimal verbal cues were given for walker managemen t, coordinated breathing exercises, and postural alignment. Balance: Static Sitting: Good Dynamic Sitting: Good Static Standing: Fair Dynamic Standing: Fair Special Tests: Mobility Limitations Standardized Measure [facility] AM-PAC 6 clicks Basic Mobility Inpatient Short Form: Raw Score: 18 CMS Score: 47% deficit Informed Consent/Education: Patient instructed in purpose of PT consult and plan of care. Patient is agreeable to physical therapy visit frequency twice daily with treatment focused on bilateral lower extremity strengthening, balance training, and stooling to improve activity tolerance. Patient is a 73-year-old male diagnosed with sepsis, acute respiratory failure, COPD exacerbation, Assessment: Patient is a 73-year-old male with new diagnosis of sepsis, acute respiratory failure, COPD exacerbation, suspected pneumonia, atrial fibrillation with rapid ventricular response, and acute kidney injury superimposed on chronic kidney disease. Patient is peasant and cooperative and is agreeable to PT POC as well as to continuation of skilled PT services once discharged from this facility. Patient is alone during the day and therefore would need to be independent with all transfer and ambulation task with FWW in order to reduce fall risk and increase activity tolerance MRADLs. Patient presents with clinical signs and symptoms consistent with current/admitting diagnoses that have resulted to mobility limitations, gait instability, generalized weakness, and impairment of motor control as demonstrated by the following impairment level findings: 1. Decreased strength to B LE major muscle groups 2. Impaired standing balance 3. Impaired activity tolerance, breathlessness with walking Impairments are contributing to the following functional limitations: 2. Increased dependence with transfers 3. Inability to safely ambulate without assistive device and physical assistance 4. Increase completion time for mobility ADL performance 5. Increased fall risk 6. Inability to negotiate steps alone safely Patient is assessed as a 49518 moderate complexity based on the following: History: Relevant past medical history of cerebrovascular accident, COPD, CKD and seizures Examination: Demonstrable impairment in strength, balance, and range of motion with underlying impairments and functional limitations as documented above Presentation:Evolving Decision Makin moderate complexity Goals: Goals X1 week 1. Supine-Sit independent 2. Sit-Supine independent 3. Sit-Stand independent 4. Stand-Sit independent 5. Bed-Chair independent 6. Chair-Bed independent 7. Independent gait on level surface with use of least restrictive device for at least 200 feet without report of pain nor dyspnea 8. Independent stair negotiation while holding onto bilateral rails for at least 10 steps without report of pain nor dyspnea 9. Independent with home exercise program 10. Good static and dynamic standing balance/tolerance Plan of Care/Treatment Plan: 1-2x/day, 7 days/week x 1 week. Plan of care has been reviewed with the NAV[employer] AIRCREW[employer] OPERATOR providing the service under Physical Therapy direction. Initiate Physical Therapy intervention for strengthening, bed mobility, transfers, gait, stairs, balance training, use of assistive device. DISCHARGE RECOMMENDATIONS: Patient will benefit from continued use of a front wheeled walker to reduce fall risk and increase activity tolerance at home. Patient will benefit from home health PT services in order to progress mobility level using least restrictive assistive ambulatory device, assess home safety, identify additional equipment needs, and establish a functional maintenance program that will increase ability of patient to remain at home. TREATMENT CODE/TIME: 9716 2 x 37 minutes beginning at 9:51 AM Thank you very much for this referral. Debra Quezada PT, DPT, CLT [facility]
[2018-12-21] MEDS: methylPREDNISolone SUCC 125 MG VIAL 80 MG IVP (05:12)
[2018-12-21] MEDS: Insulin Aspart 300 UNITS/3 ML PEN SC ×4 (05:28→22:52)
[2018-12-21] MEDS: Budesonide 0.25 MG/2 ML UPD VIAL UPD (05:53)
[2018-12-21] MEDS: Albuterol/Ipratropium 3 ML UPD VIAL UPD ×3 (05:53→17:59)
[2018-12-21 06:56] LABS: Abs Immature Grans 0.01 k/cumm (0.0-0.09); Absolute Eosinophil Count 0.02 k/cumm (0.0-0.7); Absolute Lymphocyte Count 0.46 k/cumm (1.2-3.4); Absolute Monocyte Count 0.13 k/cumm (0.11-0.7); Absolute Neutrophil Count 7.71 k/cumm (1.2-6.7); Eosinophils % 0.2; HCT 34.3 % (40.0-50.0); HGB 11.3 g/dL (13.5-17.5); Immature Grans % 0.1; Lymphocytes % 5.5; Mean Corp. HGB Concentration 32.9 g/dL (32.0-36.0); Mean Corpuscular Hemoglobin 30.4 pg (27.0-33.0); Mean Corpuscular Volume 92.2 fL (80-95); Mean Platelet Volume 10.4 fL (8.0-11.0); Monocytes % 1.6; Neutrophils % 92.6; Platelet Count 245 x1000/uL (130-400); RBC 3.72 m/cumm (4.50-6.00); RBC Distribution Width 14.8 % (11.8-14.1); White Blood Cell Count 8.33 k/cumm (4.4-10.8)
[2018-12-21 07:05] LABS: Anion Gap 12.1 mmol/L (3-11); BUN 45 mg/dL (7-18); CO2 22.9 mmol/L (21.0-32.0); CREATININE 2.41 mg/dL (0.70-1.30); Calcium 7.4 mg/dL (8.5-10.1); Chloride 108 mmol/L (98-107); Estimated GFR 26.47 (mL/min/1.73m2); Glucose 287 mg/dL (70-100); Potassium 3.5 mmol/L (3.5-5.1); Sodium 143 mmol/L (136-145)
[2018-12-21 07:14] LABS: Magnesium 1.7 mg/dL (1.8-2.4)
[2018-12-21 07:22] LABS: Troponin I 0.07 ng/mL (0.00-0.06)
--- NOTE | 2018-12-21 07:57 | PDOC.CMIN ---
- If Service Date Differs Date of service: 12/21/18 Time of Service: 07:57 Care Management Initial Assess REASON FOR HOSPITALIZATION:: Sepsis PAST MEDICAL HISTORY/PAST SURGICAL HISTORY:: CVA. CKD. Diabetes. GERD. HTN. Hyperlipidemia. Seizure. Urinary Retention PREVIOUS FUNCTIONAL STATUS/SOCIAL/FAMILY SUPPORTS:: Ed lives in a single family split level style home in [place] with his son Hector. He is retired and is independent with all ADLs and care. Ed identifies his son as his main support. CURRENT FUNCTIONAL STATUS:: Ed was sitting up in bed when CM came to meet with him. He was pleasnat and cooperative and readily engaged in conversation. Ed states he is feeling much better than when he first arrived. He states he just started receiving HH services again and hopes to have them resume at discharge. ADVANCE DIRECTIVES:: None on file. Requesting assistance with completion of the [place] AD Forms Has patient been provided with information about the portal?: Yes Did the patient sign up for the portal?: No (considering) CODE STATUS:: Full Code INSURANCE COVERAGE / FINANCIAL ISSUES:: Medicare CURRENT HOME/COMMUNITY SERVICES/EQUIPMENT:: Just started with HH nursing this week. PRIMARY CARE PHYSICIAN:: Isak Magana MD POTENTIAL DISCHARGE NEEDS:: Follow up with PCP and discharge plan of care PATIENT/FAMILY EDUCATION NEEDS:: Discharge plan, limitations, follow up. Ask Me Three. ANTICIPATED BARRIERS TO DISCHARGE:: none TRANSPORTATION:: via private vehicle with son when ready PLAN:: Ed was advcanced from critical care to acute care today and moved out to the Med-Surg floor. He will likely be discharged home with a resumption of HH services of RN with the possible addition of PT. CM will continue to support patirnt, family and identified discharge needs.
--- NOTE | 2018-12-21 08:00 | DI.NM_ITS ---
SYMPTOM/DIAGNOSIS: INCREASING SOB, HYPOXIA, TACHYCARDIA, RESPIRATORY FAILURE VENTILATION PERFUSION LUNG SCAN: The patient received 5 millicuries of Technetium 99 M MAA for the perfusion scan and 36 millicuries of Technetium 99 M DTPA for the ventilation portion of the examination. No wedge shaped pleural based mismatches are identified to suggest pulmonary embolism. The ventilation examination shows heterogeneous uptake suggestive airtrapping. IMPRESSION: No findings to suggest pulmonary embolus. Low probability examination.
--- NOTE | 2018-12-21 08:12 | W.PM.PROGNOT ---
Date of Service Date of service: 12/21/18 Time of Service: 08:12 Assessment and Plan (1) Sepsis: Current visit: Yes Status: Resolved Likely due to pneumonia we are not actually seeing on imaging because the patient is dehydrated. Continue broad spectrum abx (vancomycin/zosyn day 2). Await blood culture results. Never did require pressors. Ok to transfer out of ICU. Elevated lactate is unlikely to represent true clinical course at this time - could be due to Afib/hypoperfusion. Will trend. Decrease IVF. (2) Acute respiratory failure with hypoxia: Current visit: Yes Status: Acute Likely due to pneumonia/acute exacerbation of COPD. Much improved - off BiPAP. Await results of VQ scan. Continue IV antibiotics, start to wean steroids. Continue scheduled and prn nebs. Resume symbicort - d/c pulmicort. Continue heparin gtt empirically for a PE until we know the result of the VQ scan. (3) Acute exacerbation of chronic obstructive pulmonary disease (COPD): Current visit: Yes Status: Acute As above (4) Pneumonia: Current visit: Yes Status: Suspected As above (5) Atrial fibrillation with rapid ventricular response: Current visit: Yes Status: Acute Converted to NSR. Off cardizem gtt, transitioned to his regular PO cardizem. Continue management as above. Transfer out of ICU. Heparin gtt for anticoagulation for now. Await echo today. (6) Seizure disorder: Current visit: No Status: Chronic Change keppra to PO. (7) Diabetes type 2, controlled: Current visit: No Status: Chronic Continue to hold oral meds. Increase long acting insulin. Cover with moderate corrective scale - may have to resume scheduled prandial insulin now that the patient will be fed. 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 Decrease IVF. Continue vicente. Monitor I/O's, daily weights. Check US renal. (9) DVT prophylaxis: Current visit: Yes Status: Acute On therapeutic heparin gtt (for both Afib and suspected PE) (10) Discharge planning issues: Current visit: Yes Status: Acute Full code PT/OT consults Transfer out of ICU. Subjective Interval history since last seen: Mr Panchal states he feels 60 % better. Denies dizziness, chest pain, states his shortness of breath is better. Denies n/v/abdominal pain. Transitioned to 2L off of BiPAP. Transitioned off of cardizem gtt to PO cardizem this am. In NSR. Microscopic hematuria on UA this am. Exam Narrative Exam Narrative: General: Elderly male, A&Ox3, Sitting up in a chair, looks much better than yesterday, very comfortable and in good spirits, about to work with PT HEENT: EOMI, MMM Cardiovascular: RRR, no m/r/g Lungs: Diminished breath sounds B Gastrointestinal: abdomen is soft, nontender, nondistended, + BS Genitourinary: has a vicente Extremities: trace edema, no c/c BLE's, 2+ pedal pulses B Objective Objective Clinical Data: Abnormal lab results 12/20/18 12/20/18 12/20/18 Range/Units 14:10 14:10 14:17 WBC 12.00 H (4.4-10.8) k/cumm RBC (4.50-6.00) m/cumm Hgb (13.5-17.5) g/dL Hct (40.0-50.0) % RDW 15.0 H (11.8-14.1) % Absolute Neutrophils 9.28 H (1.2-6.7) k/cumm Absolute Lymphocytes 0.98 L (1.2-3.4) k/cumm Absolute Monocytes 1.16 H (0.11-0.7) k/cumm ABG Total CO2 (22-29) mmol/L Chloride (98-107) mmol/L Anion Gap 14.1 H (3-11) mmol/L BUN 37 H (7-18) mg/dL Creatinine 2.56 H (0.70-1.30) mg/dL Glucose 351 H (70-100) mg/dL Lactate 2.5 H* (0.6-1.4) mmol/L Calcium (8.5-10.1) mg/dL Magnesium (1.8-2.4) mg/dL Alkaline Phosphatase 150 H (46-116) U/L Troponin I (0.00-0.06) ng/mL NT-Pro-B Natriuret Pep 1762 H ( - 299) pg/mL Albumin 3.3 L (3.4-5.0) g/dL Urine Protein (Negative) mg/dL Urine Blood (Negative) Urine Glucose (Negative) mg/dL 12/20/18 12/20/18 12/20/18 Range/Units 15:24 16:30 20:00 WBC (4.4-10.8) k/cumm RBC (4.50-6.00) m/cumm Hgb (13.5-17.5) g/dL Hct (40.0-50.0) % RDW (11.8-14.1) % Absolute Neutrophils (1.2-6.7) k/cumm Absolute Lymphocytes (1.2-3.4) k/cumm Absolute Monocytes (0.11-0.7) k/cumm ABG Total CO2 21 L (22-29) mmol/L Chloride (98-107) mmol/L Anion Gap (3-11) mmol/L BUN (7-18) mg/dL Creatinine (0.70-1.30) mg/dL Glucose (70-100) mg/dL Lactate (0.6-1.4) mmol/L Calcium (8.5-10.1) mg/dL Magnesium (1.8-2.4) mg/dL Alkaline Phosphatase (46-116) U/L Troponin I 0.12 H* (0.00-0.06) ng/mL NT-Pro-B Natriuret Pep ( - 299) pg/mL Albumin (3.4-5.0) g/dL Urine Protein >=300 H (Negative) mg/dL Urine Blood Moderate H (Negative) Urine Glucose 250 H (Negative) mg/dL 12/21/18 12/21/18 12/21/18 Range/Units 01:50 06:40 06:40 WBC (4.4-10.8) k/cumm RBC (4.50-6.00) m/cumm Hgb (13.5-17.5) g/dL Hct (40.0-50.0) % RDW (11.8-14.1) % Absolute Neutrophils (1.2-6.7) k/cumm Absolute Lymphocytes (1.2-3.4) k/cumm Absolute Monocytes (0.11-0.7) k/cumm ABG Total CO2 (22-29) mmol/L Chloride 108 H (98-107) mmol/L Anion Gap 12.1 H (3-11) mmol/L BUN 45 H (7-18) mg/dL Creatinine 2.41 H (0.70-1.30) mg/dL Glucose 287 H (70-100) mg/dL Lactate 2.5 H* (0.6-1.4) mmol/L Calcium 7.4 L (8.5-10.1) mg/dL Magnesium 1.7 L (1.8-2.4) mg/dL Alkaline Phosphatase (46-116) U/L Troponin I 0.07 H (0.00-0.06) ng/mL NT-Pro-B Natriuret Pep ( - 299) pg/mL Albumin (3.4-5.0) g/dL Urine Protein (Negative) mg/dL Urine Blood (Negative) Urine Glucose (Negative) mg/dL 12/21/18 Range/Units 06:40 WBC (4.4-10.8) k/cumm RBC 3.72 L (4.50-6.00) m/cumm Hgb 11.3 L D (13.5-17.5) g/dL Hct 34.3 L (40.0-50.0) % RDW 14.8 H (11.8-14.1) % Absolute Neutrophils 7.71 H (1.2-6.7) k/cumm Absolute Lymphocytes 0.46 L (1.2-3.4) k/cumm Absolute Monocytes (0.11-0.7) k/cumm ABG Total CO2 (22-29) mmol/L Chloride (98-107) mmol/L Anion Gap (3-11) mmol/L BUN (7-18) mg/dL Creatinine (0.70-1.30) mg/dL Glucose (70-100) mg/dL Lactate (0.6-1.4) mmol/L Calcium (8.5-10.1) mg/dL Magnesium (1.8-2.4) mg/dL Alkaline Phosphatase (46-116) U/L Troponin I (0.00-0.06) ng/mL NT-Pro-B Natriuret Pep ( - 299) pg/mL Albumin (3.4-5.0) g/dL Urine Protein (Negative) mg/dL Urine Blood (Negative) Urine Glucose (Negative) mg/dL Vital Signs Temperature 36.5 C 12/21/18 03:02 Temperature Source Temporal Artery Scan 12/21/18 00:37 Pulse 92 H 12/21/18 05:53 Pulse 89 12/21/18 03:40 Respiratory Rate 24 12/21/18 05:53 Respiratory Effort 12/21/18 03:02 Respiratory Depth Normal 12/21/18 03:02 Respiratory Pattern Normal 12/21/18 03:02 Blood Pressure 115/66 12/21/18 03:00 Blood Pressure Mean 78 12/21/18 03:00 Blood Pressure Position Supine 12/21/18 00:37 Pulse Oximetry 94 L 12/21/18 05:53 Respiratory End-tidal CO2 27 12/20/18 14:08 Oxygen Delivery Method Room Air 12/21/18 05:53 Oxygen Flow Rate 0 12/21/18 05:53 Fraction of Inspired Oxygen (FIO2) 26 12/21/18 03:30 Pain Level 0 12/21/18 03:02 Intake & Output 12/20/18 12/20/18 12/21/18 11:59 23:59 11:59 Intake Total 3670.917 / 3670.917 255 / 255 Output Total 650 / 650 350 / 350 Balance 3020.917 / 3020.917 -95 / -95 Weight 108.1 kg 108.1 kg Intake: IV 3670.917 / 3670.917 155 / 155 Oral 0 / 0 100 / 100 Output: Urine 650 / 650 350 / 350 Other: Urine Color Light Kirstin Yellow Urine Appearance Cloudy Cloudy Sediment Sediment Comment foul odor to urine strong odor Laboratory Results WBC 8.33 k/cumm (4.4-10.8) D 12/21/18 06:40 RBC 3.72 m/cumm (4.50-6.00) L 12/21/18 06:40 Hgb 11.3 g/dL (13.5-17.5) L D 12/21/18 06:40 Hct 34.3 % (40.0-50.0) L 12/21/18 06:40 MCV 92.2 fL (80-95) 12/21/18 06:40 MCH 30.4 pg (27.0-33.0) 12/21/18 06:40 MCHC 32.9 g/dL (32.0-36.0) 12/21/18 06:40 RDW 14.8 % (11.8-14.1) H 12/21/18 06:40 Plt Count 245 x1000/uL (130-400) 12/21/18 06:40 MPV 10.4 fL (8.0-11.0) 12/21/18 06:40 Immature Gran % 0.1 12/21/18 06:40 92.6 12/21/18 06:40 5.5 12/21/18 06:40 1.6 12/21/18 06:40 0.2 12/21/18 06:40 0.0 12/21/18 06:40 Absolute Neutrophils 7.71 k/cumm (1.2-6.7) H 12/21/18 06:40 Absolute Lymphocytes 0.46 k/cumm (1.2-3.4) L 12/21/18 06:40 Absolute Monocytes 0.13 k/cumm (0.11-0.7) 12/21/18 06:40 Absolute Eosinophils 0.02 k/cumm (0.0-0.7) 12/21/18 06:40 Absolute Basophils 0.00 k/cumm (0.0-0.2) 12/21/18 06:40 PT 9.9 sec (9.3-11.0) 12/20/18 14:10 INR 1.0 (0.9-1.1) 12/20/18 14:10 APTT 25.6 sec (21.0-31.4) 12/20/18 14:10 Sample Site Right radial 12/20/18 16:30 pCO2 39 mmHg (34-47) 12/20/18 16:30 pO2 85 mmHg (83-108) 12/20/18 16:30 O2 Saturation 97 % (94-98) 12/20/18 16:30 ABG pH 7.37 (7.35-7.45) 12/20/18 16:30 ABG HCO3 23 mmol/L (22-28) 12/20/18 16:30 ABG Total CO2 21 mmol/L (22-29) L 12/20/18 16:30 ABG Base Excess -2.4 mmol/L (-3-3) 12/20/18 16:30 30 % 12/20/18 16:30 Sodium 143 mmol/L (136-145) 12/21/18 06:40 Potassium 3.5 mmol/L (3.5-5.1) D 12/21/18 06:40 Chloride 108 mmol/L (98-107) H 12/21/18 06:40 Carbon Dioxide 22.9 mmol/L (21.0-32.0) 12/21/18 06:40 12.1 mmol/L (3-11) H 12/21/18 06:40 BUN 45 mg/dL (7-18) H 12/21/18 06:40 2.41 mg/dL (0.70-1.30) H 12/21/18 06:40 26.47 (mL/min/1.73m2) 12/21/18 06:40 Glucose 287 mg/dL (70-100) H 12/21/18 06:40 2.5 mmol/L (0.6-1.4) H* 12/21/18 01:50 Calcium 7.4 mg/dL (8.5-10.1) L 12/21/18 06:40 Magnesium 1.7 mg/dL (1.8-2.4) L 12/21/18 06:40 0.7 mg/dL (0.2-1.0) 12/20/18 14:10 AST 30 U/L (15-37) 12/20/18 14:10 ALT 32 U/L (16-63) 12/20/18 14:10 150 U/L (46-116) H 12/20/18 14:10 0.07 ng/mL (0.00-0.06) H 12/21/18 06:40 NT-Pro-B Natriuret Pep 1762 pg/mL (-299) H 12/20/18 14:10 7.8 g/dL (6.4-8.2) 12/20/18 14:10 3.3 g/dL (3.4-5.0) L 12/20/18 14:10 TSH 0.99 uIU/mL (0.36-3.74) 12/20/18 14:10 Yellow (Yellow) 12/20/18 15:24 Cloudy (Clear) 12/20/18 15:24 5.5 (5-8) 12/20/18 15:24 Ur Specific Mereta 1.025 (1.005-1.025) 12/20/18 15:24 >=300 mg/dL (Negative) H 12/20/18 15:24 Negative mg/dL (Negative) 12/20/18 15:24 Moderate (Negative) H 12/20/18 15:24 Negative (Negative) 12/20/18 15:24 Negative (Negative) 12/20/18 15:24 0.2 EU/dL (Up TO 0.2) 12/20/18 15:24 Ur Leukocyte Esterase Negative (Negative) 12/20/18 15:24 (0-2) 12/20/18 15:24 >50 HPF (0-5) 12/20/18 15:24 Ur Epithelial Cells Negative HPF (Negative) 12/20/18 15:24 Negative HPF (Negative) 12/20/18 15:24 Many HPF (Negative) 12/20/18 15:24 Negative (Negative) 12/20/18 15:24 (Negative) 12/20/18 15:24 Ur Culture Indicated? Yes 12/20/18 15:24 250 mg/dL (Negative) H 12/20/18 15:24 EKG: Sinus tach, HR 96, diffuse nonspecific ST-T changes, no acute ischemia
--- NOTE | 2018-12-21 08:30 | NUR.NOTE ---
Luba Monroe RN assumed care of the patient from Valentina Mendez RN while she took iver an emergent one on one. Pt was out of the unit for testing and returned within the hour back to his room. OT in working with the patient and Dr. Hdz is rounding on him now. Nursing Note:
[2018-12-21] MEDS: Finasteride 5 MG TAB PO (08:55)
[2018-12-21] MEDS: Sertraline 50 MG TAB 100 MG PO (08:55)
[2018-12-21] MEDS: Aspirin 81 MG CHEW PO (08:55)
[2018-12-21] MEDS: Omeprazole 20 MG CAPCR 40 MG PO ×2 (08:55→20:20)
[2018-12-21] MEDS: Multivitamin TAB 1 TAB PO (08:56)
[2018-12-21] MEDS: dilTIAZem CD 120 MG CAPCR 240 MG PO (08:56)
[2018-12-21] MEDS: Insulin Glargine 300 UNITS/3 ML PEN 30 UNITS SC ×2 (08:57→20:26)
[2018-12-21] MEDS: MAGNESIUM SULFATE 1 GM/100 ML BAG IVPB (08:59)
[2018-12-21 09:21] LABS: Procalcitonin 0.2 ng/mL
[2018-12-21] MEDS: Normal Saline 1,000 ML 75 ML IV (09:23)
[2018-12-21] MEDS: Docusate Sodium 100 MG CAP PO (09:27)
--- NOTE | 2018-12-21 09:55 | OT.INIE ---
Occupational Therapy Notes Inpatient Occupational Therapy Evaluation Date: 12/21/18 Referring Doctor: Yoselyn Hdz MD OT Orders: Eval and Treat Precautions: Fall, Standard PATIENT PROFILE/ADMITTING DIAGNOSIS: Pt is a 73 year old male who was admitted through the ER after he was being evaluated from for SOB. He was admitted to the ICU for recent episode of syncope, UTI's in setting of chronic urinary retention, CKD stage 3, seizure disorder, and SOB. Past Medical History: Medical History Cerebrovascular disease (Chronic) CKD (chronic kidney disease) (Acute) COPD (chronic obstructive pulmonary disease) (Chronic) Diabetes (Chronic) Diabetic gastroenteropathy (Acute) GERD (gastroesophageal reflux disease) (Chronic) HTN (hypertension) (Chronic) Hyperlipidemia (Acute) Seizure (Acute) Urinary retention (Acute) Surgical History EGD - MAC (07/28/16) Social History/Home Situation: Pt states that he lives in a private home with his son. He is not currently driving because he has decided he is not safe to at this time. His son performs all the cooking. He has a tub/shower which he does have a seat in. He is unable to perform LE dressing and bathing efficiently but he does have adaptive equipment needed to perform this at home, or pt reports that he does not perform any LE bathing. He performs his functional mobility with a FWW and has recently switched from utilizing a cane. Equipment owned/DME: grab bars, shower seat, cane, FWW, sock aid, grabber SUBJECTIVE: Pt was sitting in chair when OT arrived. He was agreeable to OT session. OBJECTIVE: General Observation: Arce, telemetry, O2 nasal cannula, IV (R) UE, pt is pleasant and answered questions appropriately. Mental Status: A&Ox3 Pain: no c/o pain ROM: RUE AROM WFL L UE AROM WFL STRENGTH: RUE Shoulder flexion 4/5, bicep 3+/5, tricep 3+/5, manager gas is strong and symmetrical LUE Shoulder flexion 4/5, bicep 3+/5, tricep 3+/5, manager gas is strong and symmetrical FUNCTIONAL MOBILITY/ADLS: BATHING Sitting in chair with min vc Bathing UE (I) with face and (B) UE Bathing LE NT DRESSING Sitting in chair Dressing UE NT Dressing LE Mod (A) with don and doffing (B) socks with modified technique Pt was able to (I) don his Upper teeth. He notes a decreased in functional LE movement. BALANCE: Static sitting Normal Dynamic Sitting Normal Static Standing Good Dynamic Standing NT SPECIAL TESTS: Daily Activity Limitations Standardized Measure [facility] AM -PAC ?6 clicks? Daily Activity Inpatient Short Form: Raw score: 20 Standardized score: 42.03 CMS score: 38.32% INFORMED CONSENT/EDUCATION: Pt instructed in purpose of OT Consult and plan of care. ASSESSMENT: Patient is a 73-year-old male referred to occupational therapy services with diagnosis of recent episode of syncope, UTI's in setting of chronic urinary retention, CKD stage 3, seizure disorder, who was brought to [facility] ER after the patient's home health nurse evaluation. Patient presents with clinical signs and symptoms consistent with dx, as demonstrated by the following impairment level findings: decreased functional activity tolerance, decreased gross and fine motor control of (B) UE, decreased performance of (B) LE ADLs, decreased functional (I) with mobility and community mobility. Impairments are contributing to the following functional limitations: Pt has difficulty performing the following functional activities including LE dressing and bathing, decreased functional activity tolerance, decreased functional mobility. AMPAC score 20, CMS 38.32% Patient is assessed as a Low 56581 complexity based on the following: History: See Above Examination: See functional limitations as listed above Presentation: Evolving Decision Making: AMPAC 20, CMS 38.32% GOALS Goals x1 week 1. Transfers (S) FWW 2. Dressing in seated position (I) UE and mod (I) LE 3. Bathing (I) UE and min (A) LE 4. Toileting (I) on toilet 5. Eating (I) PLAN OF CARE/TREATMENT PLAN: 1x/day, 5 days/ week x 1week Initiate Occupational Therapy Services for bathing, dressing, grooming, toileting, eating, transfer training. DISCHARGE RECOMMENDATIONS OT recommends that pt return home with HHOT when medically cleared per MD. TREATMENT TIME/MINUTES/CODES 89662, 20 minutes (08:15) [facility]
[2018-12-21] MEDS: levETIRAcetam 500 MG TAB PO ×2 (10:48→20:20)
--- NOTE | 2018-12-21 12:00 | DI.US_ITS ---
SYMPTOMS/DIAGNOSIS: LUISA RENAL ULTRASOUND: Routine examination was performed. The right kidney measures 11.1 cm. The left kidney measures 10 cm long. No renal mass, calculus or obstruction is seen. There is symmetric blood flow to the kidneys. There is a Whitt catheter in the bladder which was not distended. Bladder evaluation was therefore very limited. IMPRESSION: Unremarkable sonographic evaluation of the kidneys.
--- NOTE | 2018-12-21 12:20 | MERGE_ITS ---
*[facility]* *[facility]* [address] [place] [address] Date of study: 12/21/2018 Transthoracic Echocardiography M-mode, complete 2D, complete spectral Doppler, and color Doppler *STUDY CONCLUSIONS* Summary: 1. Left ventricle: The cavity size was normal. Systolic function was hyperdynamic. The estimated ejection fraction was 65-70%. Diastolic parameters were normal for age. There was no evidence of elevated ventricular filling pressure by Doppler parameters. 2. Right ventricle: The cavity size was mildly dilated. Systolic function was normal. 3. Atrial septum: No defect or patent foramen ovale was identified. 4. Pulmonary arteries: Pulmonary systolic pressure was in the range of 45mm Hg to 55mm Hg. 5. Inferior vena cava: The vessel was patent and normal in size. The respirophasic diameter changes were in the normal range (greater than or equal to 50%), consistent with normal central venous pressure. *PATIENT PRESENTATION* Height: 177.8cm (70in ) S/D Pressure: 115 / 66 Weight: 108kg (237.5lb ) BSA: 2.35m^2 Test start time: 12:35 PM. Test stop time: 01:35 PM. PERFORMING Unknown PERFORMING [facility] ATTENDANT ARCADE RT Danyelle Juarez)(CT), [facility] CONSULTING Yoselyn Hdz ORDERING Yoselyn Hdz REFERRING Yoselyn Hdz *PROCEDURE DATA* Procedure information: The patient was identified by two identifiers. This study was interpreted by [facility]. Pertinent images and digital data are archived for permanent storage and are available for subsequent review. Comparison was made to the study of 04/17/2010. Study status: Routine. Transthoracic echocardiography. M-mode, complete 2D, complete spectral Doppler, and color Doppler. A Transthoracic Echocardiogram was performed. Scanning was performed from the parasternal, apical, subcostal, and suprasternal notch acoustic windows. Images were obtained using an [id number] cardiac ultrasound machine. Image quality was adequate. Study completion: The patient tolerated the procedure well. History: PMH: New onset afib. Recent syncope. *CARDIAC ANATOMY* Left ventricle: The cavity size was normal. Systolic function was hyperdynamic. The estimated ejection fraction was 65-70%. Diastolic parameters were normal for age. There was no evidence of elevated ventricular filling pressure by Doppler parameters. Aortic valve: Probably trileaflet. Doppler: There was no stenosis. There was no significant regurgitation. VTI ratio of LVOT to aortic valve: 0.82. Valve area (VTI): 2.7cm^2. Indexed valve area (VTI): 1.2cm^2/m^2. Peak velocity ratio of LVOT to aortic valve: 0.64. Valve area (Vmax): 2.1cm^2. Indexed valve area (Vmax): 0.9cm^2/m^2. Mean velocity ratio of LVOT to aortic valve: 0.68. Valve area (Vmean): 2.3cm^2. Indexed valve area (Vmean): 1cm^2/m^2. Mean gradient (S): 5.5mm Hg. Peak gradient (S): 8.6mm Hg. Aorta: Aortic root: The aortic root was normal in size. Ascending aorta: The ascending aorta was at upper normal limits. Mitral valve: Doppler: There was no evidence for stenosis. There was trivial regurgitation. Valve area by pressure half-time: 4.6cm^2. Indexed valve area by pressure half-time: 1.9cm^2/m^2. Peak gradient (D): 4.3mm Hg. Left atrium: The atrium was normal in size. Atrial septum: No defect or patent foramen ovale was identified. Right ventricle: The cavity size was mildly dilated. Systolic function was normal. Pulmonic valve: Doppler: There was no evidence for stenosis. There was trivial regurgitation. Peak gradient (S): 4.8mm Hg. Tricuspid valve: Doppler: There was mild regurgitation. Pulmonary artery: Poorly visualized. Pulmonary systolic pressure was in the range of 45mm Hg to 55mm Hg. Right atrium: The atrium was normal in size. Pericardium: There was no pericardial effusion. Systemic veins: Inferior vena cava: Well visualized. The vessel was patent and normal in size. The respirophasic diameter changes were in the normal range (greater than or equal to 50%), consistent with normal central venous pressure. Baseline ECG: Normal sinus rhythm. Measurements Left ventricle Value Reference LV ID, ED, PLAX 5.4 cm 3.5 - 6.0 LV ID, ES, PLAX 3.0 cm 2.1 - 4.0 LV PW thickness, ED, PLAX 1.1 cm LV end-diastolic volume, 1-p A2C 93 ml LV ejection fraction, 1-p A2C 67 % LV end-diastolic volume, 1-p A4C 65 ml LV ejection fraction, 1-p A4C 76 % LV e', lateral 0.086 m/sec LV E/e', lateral 12 LV e', medial 0.074 m/sec LV E/e', medial 14 LV e', average 0.08 m/sec LV E/e', average 13 Ventricular septum Value Reference IVS thickness, ED, PLAX 1.1 cm LVOT Value Reference LVOT ID, A-P 2.0 cm LVOT area 3.3 cm^2 LVOT peak velocity, S 0.93 m/sec LVOT mean velocity, S 0.77 m/sec LVOT VTI, S 25.5 cm LVOT peak gradient, S 3.5 mm Hg LVOT mean gradient, S 2.5 mm Hg Stroke volume (SV), LVOT DP 84 ml Stroke index (SV/bsa), LVOT DP 36 ml/m^2 Aortic valve Value Reference Aortic valve peak velocity, S 1.5 m/sec Aortic valve mean velocity, S 1.1 m/sec Aortic valve VTI, S 31.0 cm Aortic mean gradient, S 5.5 mm Hg Aortic peak gradient, S 8.6 mm Hg VTI ratio, LVOT/AV 0.82 Aortic valve area, VTI 2.7 cm^2 Velocity ratio, peak, LVOT/AV 0.64 Aortic valve area, peak velocity 2.1 cm^2 Velocity ratio, mean, LVOT/AV 0.68 Aortic valve area, mean velocity 2.3 cm^2 Aortic valve area/bsa, mean velocity 1 cm^2/m^2 Aorta Value Reference Aortic root ID, ED 3.2 cm Ascending aorta ID, A-P, S 3.4 cm Left atrium Value Reference LA ID, A-P, ES 3.2 cm LA ID/bsa, A-P 1.3 cm/m^2 <=2.2 LA volume/bsa, ES, 1-p A4C 15 ml/m^2 LA volume, ES, 2-p 32 ml LA volume/bsa, ES, 2-p 14 ml/m^2 LA/aortic root ratio 0.98 Mitral valve Value Reference Mitral E-wave peak velocity 1.04 m/sec Mitral A-wave peak velocity 1.11 m/sec Mitral deceleration time 167 ms 150 - 230 Mitral pressure half-time 48 ms Mitral peak gradient, D 4.3 mm Hg Mitral E/A ratio, peak 0.93 Mitral valve area, PHT, DP 4.6 cm^2 Tricuspid valve Value Reference Tricuspid regurg peak velocity 3.4 m/sec Tricuspid peak RV-RA gradient 46 mm Hg Right atrium Value Reference RA area, ES, A4C 16.2 cm^2 8.3 - 19.5 Pulmonic valve Value Reference Pulmonic peak gradient, S 4.8 mm Hg Legend: (L) and (H) ramana values outside specified reference range. I have personally reviewed the images and have reviewed and edited the reported findings. Electronically signed by Timbo Dowd MD 12/21/2018 17:31
[2018-12-21] MEDS: methylPREDNISolone SUCC 125 MG VIAL 60 MG IVP ×2 (13:54→22:52)
[2018-12-21] MEDS: Insulin Aspart 300 UNITS/3 ML PEN 10 UNITS SC ×2 (13:55→17:03)
[2018-12-21 13:56] LABS: Lactate 1.6 mmol/L (0.6-1.4)
--- NOTE | 2018-12-21 14:58 | PT.INTREAT ---
Date of service: 12/21/18 Time of Service: 14:58 PT Notes Inpatient Physical Therapy Treatment Note [facility] Date: 12/21/2018 PRECAUTIONS: Fall SUBJECTIVE: Ed is agreeable to participating in PT. He reports it doesn't take much for me to get out of breath lately. OBJECTIVE: PAIN:No c/o pain BED MOBILITY/TRANSFERS Sit-supine: S with HOB flat Sit-stand: SBA Stand-sit: SBA GAIT Assistive Device: FWW Weight bearing: Full Assist: SBA Distance: 35' Deviation: Slow jenni, increased SOB ASSESSMENT: Patient tolerated session with increased SOB with gait training. Patient was able to tolerate a progression in gait distance with FWW support and SBA. Patient would benefit from continued gait training as well as global conditioning for improved activity tolerance. PLAN: Continue with PT's POC TREATMENT CODE/TIME: 15 minutes; [id number]
--- NOTE | 2018-12-21 15:31 | PHARADMIT ---
Addendum entered by Nichol Hooker 12/23/18 16:22: Pharmacy Note Subjective pts breathing sounded a bit worse then yesterday per morning report, overall pt improving Objective BP-150/81 other VS okay weight-110.0(up) SCr-2.38(down slightly) BG-223 Assessment oxybutynin ordered BID (for bladder spasm), pt has vicente cath in so MD not concerned about urinary retention furosemide X1 dose and an addition prednisone dose ordered today zosyn continues (day 4) Plan possible discharge tomorrow if doing better Addendum entered by Michael Friend III 12/22/18 15:08: Pharmacy Note Subjective Patient's has converted out of A-fib. r/o PE Vanco DC'd Zosyn continues, COPD improving. Objective HR-91 VS-OK K+4.0 SCr2.49 BUN-51 Wgt-108.8 kg BM today Assessment Heparin drip dc'd, Warfarin started with Heparin SQ bridge Plan Breathing better but not at baseline yet. Monitor anticoagulation. Watch I&Os & Wgt PT & OT ordered Addendum entered by Cristina Holder 12/21/18 16:08: rec'd Mag 1gram IV x1 and Robin Gluconate IV x1....Ca++ was 7.4 (Corrected Ca++ 7.9) Original Note: Admission Pharmacy Clinical Review RAPID AFIB, ACUTE HYPOXIC RESP.FAILURE, COPD, LUISA, ?Sepsis ICU to M/S today Code Status Full Code Current Weight 108.1 kg Renally Cleared and Narrow Therapeutic Index Meds CrCl~27ml/min QTc Value / Action Taken QTC 475 (Sertraline) BP Control, Fever BP 121/44 Afebrile Electrolytes reviewed Mag 1.7 K+ 3.5 DVT Prophylaxis none...was on heparin drip, dc'd by @ 11pm...brought to 's attention, she will research and may restart ?risk of PE and for Afib Opiate Usage / Scheduled Bowel Regimen Ordered Plt/SCr for Heparin / Enoxaparin Plt 245 SCr 2.41 INR for Warfarin H/H stable, WBC/Bands H/H 11.3/34.3 WBC 8.33 (steroids) Antibiotic appropriateness Vanco/Zosyn day#2 Procalcitonin 0.2 Cultures and Sensitivities Sputum & blood pending....will narrow on 12/22/18 Urine >100K gram neg and 10-50K gram pos Surgical ABX d/c within 24 hr DM control / Insulin Dosing BG 287 (Novolog/Lantus with many changes) Heart Failure (Check EF%) (SMITH's, B-Block, Diuretics) Diltiazem oral, Metoprolol IV prn, IV to PO Switch Keppra IV to oral today on IV steroids Home Meds Reviewed Home Meds Not Ordered HCTZ, Losartan, Melatonin, Sitagliptan, Tamsulosin, Spiriva, Trulicity Comments Sepsis resolved...Diltiazem and Phenylephrine drips dc'd Lactate 2.5 down to 1.6
[2018-12-21] MEDS: Budesonide/Formoterol 160/4.5 6 GM 60 PUFF INH IH (20:26)
[2018-12-21] MEDS: Atorvastatin 40 MG TAB 80 MG PO (22:53)
[2018-12-22] VITALS (17 sets, daily range): BP systolic 114–157; BP diastolic 60–75; PULSE 82–111; RESP 1–32; TEMP 36.2–36.6; O2SAT 92–97
[2018-12-22] MEDS: Albuterol/Ipratropium 3 ML UPD VIAL UPD ×4 (01:51→18:31)
[2018-12-22 02:23] LABS: PTT Activated 138.8 sec (21.0-31.4)
[2018-12-22] MEDS: Albuterol 2.5 MG/3 ML INH SOLN VIAL UPD ×2 (02:26→09:27)
[2018-12-22 03:35] LABS: PTT Activated 130.8 sec (21.0-31.4)
[2018-12-22] MEDS: PIPERACILLIN/TAZO 3.375 GM in Normal Saline 50 ML IVPB ×4 (04:05→22:36)
[2018-12-22] MEDS: methylPREDNISolone SUCC 125 MG VIAL 60 MG IVP (06:24)
[2018-12-22] MEDS: Normal Saline Flush 10 ML SYR IVP ×3 (06:25→22:40)
[2018-12-22 06:36] LABS: Abs Immature Grans 0.03 k/cumm (0.0-0.09); Absolute Basophil Count 0.01 k/cumm (0.0-0.2); Absolute Lymphocyte Count 0.47 k/cumm (1.2-3.4); Absolute Monocyte Count 0.33 k/cumm (0.11-0.7); Absolute Neutrophil Count 10.38 k/cumm (1.2-6.7); Basophils % 0.1; HCT 32.8 % (40.0-50.0); Immature Grans % 0.3; Lymphocytes % 4.2; Mean Corp. HGB Concentration 33.5 g/dL (32.0-36.0); Mean Corpuscular Hemoglobin 30.8 pg (27.0-33.0); Mean Corpuscular Volume 91.9 fL (80-95); Mean Platelet Volume 10.4 fL (8.0-11.0); Monocytes % 2.9; Neutrophils % 92.5; Platelet Count 264 x1000/uL (130-400); RBC 3.57 m/cumm (4.50-6.00); RBC Distribution Width 14.9 % (11.8-14.1); White Blood Cell Count 11.22 k/cumm (4.4-10.8)
[2018-12-22 06:46] LABS: BUN 51 mg/dL (7-18); CREATININE 2.49 mg/dL (0.70-1.30); Calcium 7.6 mg/dL (8.5-10.1); Chloride 107 mmol/L (98-107); Estimated GFR 25.49 (mL/min/1.73m2); Glucose 373 mg/dL (70-100); Sodium 140 mmol/L (136-145)
[2018-12-22 06:56] LABS: PTT Activated 94.1 sec (21.0-31.4)
[2018-12-22 07:09] LABS: Procalcitonin 0.2 ng/mL
--- NOTE | 2018-12-22 08:08 | OT.INTREAT ---
Date of service: 12/22/18 Time of Service: 07:35 Occupational Therapy Notes Occupational Therapy Inpatient Treatment Note Date: 12/22/18 PRECAUTIONS: Fall, Standard SUBJECTIVE: Pt was sitting on side of bed when OT arrived. He was agreeable to OT session and states that he is feeling a little better today. He is currently breathing on room air. OBJECTIVE: FUNCTIONAL MOBILITY Sit-stand: SBA Stand-sit: SBA Bed-Chair: SBA, FWW Chair-bed: SBA, FWW BATHING: Sitting on side of bed with min vc Upper Body: (I) with face, (B) UE, and abdomen Lower Body: Mod (A) (B) LE DRESSING: Sitting on side of bed Upper Extremity: Mod (A) don and doffing hospital gown Lower Extremity: Mod (A) don and doffing (B) socks ASSESSMENT/Plan: Pt was able to demonstrate increased (I) in his ADL/IADL routines. Pt was able to tolerate functional dressing and bathing but presented with increased labored breathing. This did dissipate after about 5 minutes. OT will monitor pt and progress towards goals established at initial evaluation. TREATMENT CODES/TIME: 09442, 20 minutes (07:35) Bev Scanlon OTR/[facility]
[2018-12-22] MEDS: Budesonide/Formoterol 160/4.5 6 GM 60 PUFF INH IH ×2 (08:09→20:08)
[2018-12-22] MEDS: Insulin Glargine 300 UNITS/3 ML PEN 30 UNITS SC (08:12)
[2018-12-22] MEDS: Insulin Aspart 300 UNITS/3 ML PEN SC ×4 (08:13→22:36)
[2018-12-22] MEDS: Insulin Aspart 300 UNITS/3 ML PEN 10 UNITS SC (08:14)
[2018-12-22] MEDS: Omeprazole 20 MG CAPCR 40 MG PO ×2 (08:15→20:05)
[2018-12-22] MEDS: Multivitamin TAB 1 TAB PO (08:15)
[2018-12-22] MEDS: Aspirin 81 MG CHEW PO (08:15)
[2018-12-22] MEDS: Sertraline 50 MG TAB 100 MG PO (08:16)
[2018-12-22] MEDS: dilTIAZem CD 120 MG CAPCR 240 MG PO (08:16)
[2018-12-22] MEDS: levETIRAcetam 500 MG TAB PO ×2 (08:16→20:06)
[2018-12-22] MEDS: Finasteride 5 MG TAB PO (08:16)
[2018-12-22] MEDS: Insulin Glargine 300 UNITS/3 ML PEN 60 UNITS SC ×2 (08:23→20:09)
[2018-12-22] MEDS: Normal Saline 1,000 ML 75 ML IV (08:50)
--- NOTE | 2018-12-22 10:47 | DI.RAD_ITS ---
SYMPTOM/DIAGNOSIS: F/U SUSPECTED PNEUMONIA CHEST X-RAY: Portable AP view. Comparison 12/20/18 Heart size and pulmonary vasculature are stable and within normal limits. No focal consolidating infiltrates, effusions or pneumothoraces are identified. Degenerative changes are seen in the spine. IMPRESSION: No acute pulmonary process.
[2018-12-22] MEDS: Fluticasone NASAL SPRAY 16 GM BTL NS (10:57)
--- NOTE | 2018-12-22 11:02 | PT.INTREAT ---
Date of service: 12/22/18 Time of Service: 11:03 PT Notes Inpatient Physical Therapy Treatment Note [facility] Date: 12/22/2018 PRECAUTIONS: Fall, activity as tolerated SUBJECTIVE: Ed is agreeable to participating in PT this morning, he reports that he is feeling pretty good this morning. OBJECTIVE: PAIN: No c/o pain BED MOBILITY/TRANSFERS Sit-stand: SBA Stand-sit: SBA GAIT Assistive Device: FWW; 4WW Weight bearing: Full Assist: SBA Distance: 25' with FWW; 50' with 4WW Deviation: Seated rest x1, increased SOB VITALS: Session was performed in collaboration with Respiratory Therapy, please see their note for specific vital signs. STAIRS: Up/down 3x4 and 2?6 using B rails and a step to pattern with supervision, patient demonstrates increased SOB ASSESSMENT: Patient was able to tolerate a progression in gait distance with 4 WW support and SBA, he continues to demonstrate significant increase in SOB with activity. Patient benefit from continued patient in gait and transfer training as well as global conditioning for improved activity tolerance. PLAN: Continue with PTs POC TREATMENT CODE/TIME: 25 minutes; 73980 x2
[2018-12-22 11:10] LABS: INR 1.1 (0.9-1.1); Prothrombin Time 10.9 sec (9.3-11.0)
[2018-12-22] MEDS: Sodium Chloride-Nasal SPRAY-ADULT 44 ML BTL NS ×3 (12:01→20:08)
[2018-12-22] MEDS: Insulin Aspart 300 UNITS/3 ML PEN 15 UNITS SC ×2 (12:03→17:13)
--- NOTE | 2018-12-22 12:06 | W.PM.PROGNOT ---
Date of Service Date of service: 12/22/18 Time of Service: 12:06 Assessment and Plan (1) Sepsis: Current visit: Yes Status: Resolved Due to acute bronchitis/acute exacerbation of COPD. No evidence of PNA on repeat CXR. Continue zosyn (day 3). D/c vancomycin. Doing well on medical surgical floor (with tele). D/c IVF. (2) Acute respiratory failure with hypoxia: Current visit: Yes Status: Acute Likely due to acute bronchitis/acute exacerbation of COPD. Improving Low probability for PE on VQ scan. D/c vancomycin, continue zosyn, continue to wean steroids - convert to PO. Continue scheduled and prn nebs, symbicort. On ambulatory pulse ox testing, 95% on RA, but respiratory rate did go up to 32. RT felt this could be positional. (3) Acute exacerbation of chronic obstructive pulmonary disease (COPD): Current visit: Yes Status: Acute As above (4) Pneumonia: Current visit: Yes Status: Suspected As above (5) Atrial fibrillation with rapid ventricular response: Current visit: Yes Status: Acute Converted to NSR. Continue PO cardizem. Agrees to start coumadin Echo without evidence of intracardiac clots, EF is 65-70%, no evidence of diastolic dysfunction, pulmonary hypertension - 45-55 mm Hg. Patient should undergo sleep study as outpatient. (6) Seizure disorder: Current visit: No Status: Chronic Continue PO keppra. (7) Diabetes type 2, controlled: Current visit: No Status: Chronic Continue to hold oral meds. Increase long acting and prandial insulin. Cover with moderate corrective scale - increase to resistant. 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 US renal unremarkable. D/c vancomycin. Continue vicente. Monitor I/O's, daily weights. (9) DVT prophylaxis: Current visit: Yes Status: Acute D/c heparin gtt. Start heparin SC prophylactically and coumadin (10) Discharge planning issues: Current visit: Yes Status: Acute Full code PT/OT consulted On discharge, will need home health nursing, PT, OT, [facility]. Will need a sleep study as outpatient Subjective Interval history since last seen: Mr Panchal states that he feels much better today. His breathing and energy levels are better, but not yet back to baseline. We had a good discussion about whether or not he would be interested in anticoagulation. I explained to him that it would be very important that he take his medications as prescribed and he would need to make sure he uses his walker (he is supposed to at home but does not always) because of the risk of bleeding. He verbalized understanding. Denies dizziness, chest pain, nausea, vomiting. Complains of having nasal congestion. Exam Narrative Exam Narrative: General: Elderly male, A&Ox3, Sitting up in a chair, his breathing is loud and almost has a whistling sound to it; he clearly has nasal congestion. Looks overall better than yesterday, HEENT: EOMI, MMM Cardiovascular: RRR, no m/r/g Lungs: Diminished breath sounds B Gastrointestinal: abdomen is soft, nontender, nondistended, + BS Genitourinary: has a vicente Extremities: trace edema, no c/c BLE's, 2+ pedal pulses B Objective Objective Clinical Data: Abnormal lab results 12/21/18 12/22/18 12/22/18 Range/Units 13:50 00:45 02:15 WBC (4.4-10.8) k/cumm RBC (4.50-6.00) m/cumm Hgb (13.5-17.5) g/dL Hct (40.0-50.0) % RDW (11.8-14.1) % Absolute Neutrophils (1.2-6.7) k/cumm Absolute Lymphocytes (1.2-3.4) k/cumm APTT 138.8 H* 130.8 H* (21.0-31.4) sec BUN (7-18) mg/dL Creatinine (0.70-1.30) mg/dL Glucose (70-100) mg/dL Lactate 1.6 H (0.6-1.4) mmol/L Calcium (8.5-10.1) mg/dL 12/22/18 12/22/18 12/22/18 Range/Units 06:15 06:15 06:15 WBC 11.22 H D (4.4-10.8) k/cumm RBC 3.57 L (4.50-6.00) m/cumm Hgb 11.0 L (13.5-17.5) g/dL Hct 32.8 L (40.0-50.0) % RDW 14.9 H (11.8-14.1) % Absolute Neutrophils 10.38 H (1.2-6.7) k/cumm Absolute Lymphocytes 0.47 L (1.2-3.4) k/cumm APTT 94.1 H* D (21.0-31.4) sec BUN 51 H (7-18) mg/dL Creatinine 2.49 H (0.70-1.30) mg/dL Glucose 373 H (70-100) mg/dL Lactate (0.6-1.4) mmol/L Calcium 7.6 L (8.5-10.1) mg/dL Vital Signs Temperature 36.3 C L 12/22/18 11:19 Temperature Source Tympanic 12/22/18 11:19 Pulse 91 H 12/22/18 12:05 Pulse Rhythm Irregular 12/21/18 22:20 Pulse 90 12/21/18 13:40 Respiratory Rate 16 12/22/18 12:05 Respiratory Effort Incrsd Work of Breathing 12/21/18 22:20 Respiratory Depth Shallow 12/21/18 22:20 Respiratory Pattern Normal 12/21/18 22:20 Blood Pressure 114/68 12/22/18 11:19 Blood Pressure Mean 56 12/21/18 10:21 Blood Pressure Position Supine 12/21/18 00:37 Pulse Oximetry 97 12/22/18 12:05 Respiratory End-tidal CO2 27 12/20/18 14:08 Oxygen Delivery Method Room Air 12/22/18 11:54 Oxygen Flow Rate 0 12/22/18 11:54 Fraction of Inspired Oxygen (FIO2) 26 12/21/18 03:30 Pain Level 0 12/22/18 11:19 Comment 12/22/18 04:15 Intake & Output 12/21/18 12/22/18 12/22/18 23:59 11:59 23:59 Intake Total 1250 / 3105 862.25 / 862.25 Output Total 225 / 575 Balance 1025 / 2530 862.25 / 862.25 Weight 108.6 kg Intake: IV 1250 / 2635 382.25 / 382.25 Oral 480 / 480 Output: Urine 225 / 575 Other: Urine Color Yellow Urine Appearance Clear Stool Size Moderate Stool Characteristics Soft Formed Voiding Methods Indwelling Catheter Laboratory Results WBC 11.22 k/cumm (4.4-10.8) H D 12/22/18 06:15 RBC 3.57 m/cumm (4.50-6.00) L 12/22/18 06:15 Hgb 11.0 g/dL (13.5-17.5) L 12/22/18 06:15 Hct 32.8 % (40.0-50.0) L 12/22/18 06:15 MCV 91.9 fL (80-95) 12/22/18 06:15 MCH 30.8 pg (27.0-33.0) 12/22/18 06:15 MCHC 33.5 g/dL (32.0-36.0) 12/22/18 06:15 RDW 14.9 % (11.8-14.1) H 12/22/18 06:15 Plt Count 264 x1000/uL (130-400) 12/22/18 06:15 MPV 10.4 fL (8.0-11.0) 12/22/18 06:15 Immature Gran % 0.3 12/22/18 06:15 92.5 12/22/18 06:15 4.2 12/22/18 06:15 2.9 12/22/18 06:15 0.0 12/22/18 06:15 0.1 12/22/18 06:15 Absolute Neutrophils 10.38 k/cumm (1.2-6.7) H 12/22/18 06:15 Absolute Lymphocytes 0.47 k/cumm (1.2-3.4) L 12/22/18 06:15 Absolute Monocytes 0.33 k/cumm (0.11-0.7) 12/22/18 06:15 Absolute Eosinophils 0.00 k/cumm (0.0-0.7) 12/22/18 06:15 Absolute Basophils 0.01 k/cumm (0.0-0.2) 12/22/18 06:15 PT 10.9 sec (9.3-11.0) 12/22/18 06:15 INR 1.1 (0.9-1.1) 12/22/18 06:15 APTT 94.1 sec (21.0-31.4) H* D 12/22/18 06:15 Sample Site Right radial 12/20/18 16:30 pCO2 39 mmHg (34-47) 12/20/18 16:30 pO2 85 mmHg (83-108) 12/20/18 16:30 O2 Saturation 97 % (94-98) 12/20/18 16:30 ABG pH 7.37 (7.35-7.45) 12/20/18 16:30 ABG HCO3 23 mmol/L (22-28) 12/20/18 16:30 ABG Total CO2 21 mmol/L (22-29) L 12/20/18 16:30 ABG Base Excess -2.4 mmol/L (-3-3) 12/20/18 16:30 30 % 12/20/18 16:30 Sodium 140 mmol/L (136-145) 12/22/18 06:15 Potassium 4.0 mmol/L (3.5-5.1) 12/22/18 06:15 Chloride 107 mmol/L (98-107) 12/22/18 06:15 Carbon Dioxide 22.0 mmol/L (21.0-32.0) 12/22/18 06:15 11.0 mmol/L (3-11) 12/22/18 06:15 BUN 51 mg/dL (7-18) H 12/22/18 06:15 2.49 mg/dL (0.70-1.30) H 12/22/18 06:15 25.49 (mL/min/1.73m2) 12/22/18 06:15 Glucose 373 mg/dL (70-100) H 12/22/18 06:15 1.6 mmol/L (0.6-1.4) H 12/21/18 13:50 Calcium 7.6 mg/dL (8.5-10.1) L 12/22/18 06:15 Magnesium 2.0 mg/dL (1.8-2.4) 12/22/18 06:15 0.7 mg/dL (0.2-1.0) 12/20/18 14:10 AST 30 U/L (15-37) 12/20/18 14:10 ALT 32 U/L (16-63) 12/20/18 14:10 150 U/L (46-116) H 12/20/18 14:10 0.07 ng/mL (0.00-0.06) H 12/21/18 06:40 NT-Pro-B Natriuret Pep 1762 pg/mL (-299) H 12/20/18 14:10 7.8 g/dL (6.4-8.2) 12/20/18 14:10 3.3 g/dL (3.4-5.0) L 12/20/18 14:10 0.2 ng/mL 12/22/18 06:15 TSH 0.99 uIU/mL (0.36-3.74) 12/20/18 14:10 Yellow (Yellow) 12/20/18 15:24 Cloudy (Clear) 12/20/18 15:24 5.5 (5-8) 12/20/18 15:24 Ur Specific [place] 1.025 (1.005-1.025) 12/20/18 15:24 >=300 mg/dL (Negative) H 12/20/18 15:24 Negative mg/dL (Negative) 12/20/18 15:24 Moderate (Negative) H 12/20/18 15:24 Negative (Negative) 12/20/18 15:24 Negative (Negative) 12/20/18 15:24 0.2 EU/dL (Up TO 0.2) 12/20/18 15:24 Ur Leukocyte Esterase Negative (Negative) 12/20/18 15:24 (0-2) 12/20/18 15:24 >50 HPF (0-5) 12/20/18 15:24 Ur Epithelial Cells Negative HPF (Negative) 12/20/18 15:24 Negative HPF (Negative) 12/20/18 15:24 Many HPF (Negative) 12/20/18 15:24 Negative (Negative) 12/20/18 15:24 (Negative) 12/20/18 15:24 Ur Culture Indicated? Yes 12/20/18 15:24 250 mg/dL (Negative) H 12/20/18 15:24 CXR: No acute pulmonary process. Per my read, there is cephalization and exaggerated vascular markings.
[2018-12-22] MEDS: Heparin 5,000 UNITS/ML VIAL 5000 UNITS SC ×2 (12:58→20:08)
--- NOTE | 2018-12-22 14:06 | PT.INTREAT ---
Date of service: 12/22/18 Time of Service: 14:06 PT Notes Inpatient Physical Therapy Treatment Note [facility] Date: 12/22/2018 PRECAUTIONS: Fall, activity as tolerated SUBJECTIVE: And states that he is feeling pretty tired this afternoon, as he did not get much rest last night. OBJECTIVE: PAIN: No c/o pain BED MOBILITY/TRANSFERS Sit?supine: I Sit-stand: SBA Stand-sit: SBA GAIT Assistive Device: FWW 4WW in a.m.; 4 WW in p.m. Weight bearing: Full Assist: SBA Distance: 25' with FWW 50' with 4WW in a.m.; 100' in p.m. Deviation: Seated rest x1 in a.m.; increased SOB in both a.m. and p.m. VITALS: Morning session was performed in collaboration with Respiratory Therapy, please see their note for specific vital signs. THEREX: Patient completed a lower extremity strengthening and stabilization program, in a supine position, as per flow sheet. Patient demonstrates increased SOB with ther ex completion. STAIRS: Up/down 3x4 and 2?6 using B rails and a step to pattern with supervision, patient demonstrates increased SOB ASSESSMENT: Patient was able to tolerate a progression in gait distance with 4 WW support and SBA, he continues to demonstrate significant increase in SOB with activity. Patient benefit from continued patient in gait and transfer training as well as global conditioning for improved activity tolerance. PLAN: Continue with PTs POC TREATMENT CODE/TIME: 25 minutes; 28091, 25303
--- NOTE | 2018-12-22 15:27 | PDOC.CMPRO ---
- If Service Date Differs Date of service: 12/22/18 Time of Service: 15:27 Care Management Progress Note S/O:Ed was sitting up in the chair when CM met with him. He was smiling and stated he was feeling much better. He stated that he thinks he will be discharged home tomorrow. He is open to having additional services in the home to support his recovery.A referral was made by CM to [facility], informing them of the probable discharge tomorrow and the need for increased services. A; Ed is a 73 year old gentleman admitted to [facility] on 12/20 with rapid atrial fibrillation. P:Ed is being treated for new onset atrial fibrillation and respiratory failure. 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 CM will continue to provide support to patient, family and discharge planning process.
[2018-12-22] MEDS: Warfarin 5 MG TAB PO (20:06)
[2018-12-22] MEDS: predniSONE 20 MG TAB 60 MG PO (20:07)
[2018-12-22] MEDS: Atorvastatin 40 MG TAB 80 MG PO (22:36)
[2018-12-23] VITALS (13 sets, daily range): BP systolic 138–179; BP diastolic 80–87; PULSE 79–97; RESP 1–22; TEMP 36.5–36.9; O2SAT 94–95
[2018-12-23] MEDS: Albuterol/Ipratropium 3 ML UPD VIAL UPD ×3 (00:38→11:27)
[2018-12-23] MEDS: PIPERACILLIN/TAZO 3.375 GM in Normal Saline 50 ML IVPB ×4 (03:55→23:00)
[2018-12-23] MEDS: Heparin 5,000 UNITS/ML VIAL 5000 UNITS SC ×3 (03:55→21:03)
[2018-12-23] MEDS: Normal Saline Flush 10 ML SYR IVP ×4 (03:57→23:00)
[2018-12-23 07:31] LABS: Abs Immature Grans 0.05 k/cumm (0.0-0.09); Absolute Basophil Count 0.01 k/cumm (0.0-0.2); Absolute Eosinophil Count 0.01 k/cumm (0.0-0.7); Absolute Lymphocyte Count 0.48 k/cumm (1.2-3.4); Absolute Monocyte Count 0.46 k/cumm (0.11-0.7); Absolute Neutrophil Count 8.52 k/cumm (1.2-6.7); Basophils % 0.1; Eosinophils % 0.1; HCT 34.1 % (40.0-50.0); HGB 11.2 g/dL (13.5-17.5); Immature Grans % 0.5; Mean Corp. HGB Concentration 32.8 g/dL (32.0-36.0); Mean Corpuscular Hemoglobin 30.2 pg (27.0-33.0); Mean Corpuscular Volume 91.9 fL (80-95); Mean Platelet Volume 10.6 fL (8.0-11.0); Monocytes % 4.8; Neutrophils % 89.5; Platelet Count 272 x1000/uL (130-400); RBC 3.71 m/cumm (4.50-6.00); White Blood Cell Count 9.53 k/cumm (4.4-10.8)
[2018-12-23 07:35] LABS: Anion Gap 9.8 mmol/L (3-11); BUN 53 mg/dL (7-18); CO2 24.2 mmol/L (21.0-32.0); CREATININE 2.38 mg/dL (0.70-1.30); Calcium 7.8 mg/dL (8.5-10.1); Chloride 111 mmol/L (98-107); Estimated GFR 26.85 (mL/min/1.73m2); Glucose 233 mg/dL (70-100); Magnesium 2.2 mg/dL (1.8-2.4); Sodium 145 mmol/L (136-145)
[2018-12-23] MEDS: Budesonide/Formoterol 160/4.5 6 GM 60 PUFF INH IH ×2 (07:56→21:03)
[2018-12-23] MEDS: Omeprazole 20 MG CAPCR 40 MG PO ×2 (08:29→21:04)
[2018-12-23] MEDS: Aspirin 81 MG CHEW PO (08:30)
[2018-12-23] MEDS: predniSONE 20 MG TAB 60 MG PO ×3 (08:30→21:04)
[2018-12-23] MEDS: Finasteride 5 MG TAB PO (08:30)
[2018-12-23] MEDS: dilTIAZem CD 120 MG CAPCR 240 MG PO (08:30)
[2018-12-23] MEDS: Multivitamin TAB 1 TAB PO (08:30)
[2018-12-23] MEDS: levETIRAcetam 500 MG TAB PO ×2 (08:30→21:04)
[2018-12-23] MEDS: Sertraline 50 MG TAB 100 MG PO (08:30)
[2018-12-23] MEDS: Insulin Glargine 300 UNITS/3 ML PEN 60 UNITS SC ×2 (08:31→21:25)
[2018-12-23] MEDS: Insulin Aspart 300 UNITS/3 ML PEN SC ×3 (08:32→17:01)
[2018-12-23] MEDS: Insulin Aspart 300 UNITS/3 ML PEN 15 UNITS SC ×3 (08:32→17:01)
--- NOTE | 2018-12-23 09:44 | OT.INTREAT ---
Date of service: 12/23/18 Time of Service: 09:05 Occupational Therapy Notes Occupational Therapy Inpatient Treatment Note Date: 12/23/18 PRECAUTIONS: Fall, standard, SOB SUBJECTIVE: Pt states that he has been a little SOB this morning. He notes that he is uncomfortable because he has to urinate. Pt then starts shaking in his (B) arms indicating that this has been happening for the past 2 months every time he needs to go to the bathroom. OT did notify nursing about this. OBJECTIVE: PAIN:no c/o pain FUNCTIONAL MOBILITY Rolling L/R: (S) Sit-supine: (S) BATHING: On side of bed with max (A) set up and min vc Upper Body: (I) hair, face, (B) UE and abdomen Lower Body: (I) (B) legs to just below knees, Mod (A) below (B) knees and (B) feet DRESSING: Sitting on side of bed Upper Extremity: Min (A) don and doffing hospital gown Lower Extremity: Max (A) don and doffing (B) socks. ASSESSMENT/PLAN: Pt is presenting with difficulty breathing with any performance of ADLs or functional mobility. He is able to perform his ADLs in sitting position but any forward bending of trunk flexion becomes bothersome to him and he has difficulty performing this. Based on pts current level of function OT does feel that pt would benefit from placement to SNF. TREATMENT CODES/TIME: [id number], 15 minutes (09:05) Bev Scanlon OTR/L [facility]
[2018-12-23] MEDS: Normal Saline 500 ML 50 ML (10:30)
[2018-12-23] MEDS: Fluticasone NASAL SPRAY 16 GM BTL NS (10:36)
[2018-12-23] MEDS: Sodium Chloride-Nasal SPRAY-ADULT 44 ML BTL NS ×4 (10:36→21:05)
--- NOTE | 2018-12-23 11:31 | PTTR_ITS ---
Date of service: 12/23/18 Time of Service: 11:32 PT Notes 12/23/18 SUBJECTIVE: Ed reporting SOB in supine. He notes he walks only short distance at home and he knows he should be walking more. OBJECTIVE: Supine in bed. Nursing present. Pt agreeable to PT treatment. TRANSFERS Supine to sit: Min A Sit to supine: Min A Sit to stand: SBA Stand to sit: SBA GAIT Device: 4WW Weight bearing: Full Assist: SBA Distance: 25'+50' Deviation: Slow pace Vitals: 92% upon sitting up in bed on RA improving to 94% with prolong sitting time. Drops to 91% with ambulation, HR 106. Toileting: Pt incontinent to bowels requiring Max A for cleaning. ASSESSMENT: Pt utilizing 4WW appropriately with slow pace, and utilization of brakes with transfers. He does appear to have increasing SOB with activity although able to carry on conversataion and Sa02 remains WNL. PLAN: Continue to progress strength and gait distance for improvements in activity tolerance. Treatment time: 25 minutes [id number] Dayanara Mccarthy PTA Clinic location: [facility] [place], [place]
[2018-12-23] MEDS: Oxybutynin 5 MG TAB PO ×2 (12:51→21:04)
--- NOTE | 2018-12-23 15:08 | PDOC.CMPRO ---
- If Service Date Differs Date of service: 12/23/18 Time of Service: 15:09 Care Management Progress Note S/O:Ed states he continues to feel better and hopes to be discharged home today. A; Ed is a 73 year old gentleman admitted to [facility] on 12/20 with rapid atrial fibrillation. P:Ed is being treated for new onset atrial fibrillation and respiratory failure. He will return home with a resumption of nursing and have new PT,OT and DIRECTOR PROPERTY services. CM will continue to provide support to patient, family and discharge planning process.
--- NOTE | 2018-12-23 15:22 | W.INDIABCONS ---
Date of service: 12/23/18 Time of Service: 15:22 Diabetes Inpatient Consult DESCRIPTION/ASSESSMENT: Appreciate diabetes consult for Mr. Panchal who is well known to me from outpatient diabetes support. Blood sugars here in 200s. He does not monitor blood sugars regularly at home pre-meals, however this is near usual control for him despite 60mg prednisone twice daily here and 15u Novolog as a base before resistant insulin correction and without his usual oral medication and Trulicity. He was assessed during his last inpatient visit. INTERVENTION: Suggest increasing mealtime insulin to his usual 20u in addition to his current correction scale to see if blood sugars can get closer to his goal of below 200mg/dl. PLAN: Suggest 20u mealtime insulin plus resistant correction and current basal insulin regimen Will follow up prior to discharge as deemed helpful. Time Spent in Nutritional Counseling and Treatment: 5 minutes face to face
--- NOTE | 2018-12-23 15:25 | PT.INTREAT ---
Date of service: 12/23/18 Time of Service: 15:25 PT Notes 12/23/18 SUBJECTIVE: Ed stating he is quite fatigued this afternoon. He is in agreement to PT treatment. OBJECTIVE: TRANSFERS Supine to sit: min A Sit to supine: CGA GAIT Device: 4WW Weight bearing: Full Assist: SBA Distance: 10'2 THEREX: Sead LE strengthening as noted on flow sheet. Pt stands in place x 5 minutes for cleaning. Toileting: Pt incontinent to bowels. Max A for cleaning. ASSESSMENT: Pt continues to become SOB with activity. His vitals remain in the 90's. Incontinent to bowels x 2 today. Pt moves well for short distances without LOB noted today. PLAN: Continue current POC progressing toward's established goals. Dayanara Mccarthy PTA Clinic location: [facility] [place], [place]
--- NOTE | 2018-12-23 15:59 | PGE_ITS ---
Date of Service Date of service: 12/23/18 Time of Service: 15:59 Assessment and Plan (1) Sepsis: Current visit: Yes Status: Resolved Due to acute bronchitis/acute exacerbation of COPD. No evidence of PNA on repeat CXR. Continue zosyn (day 4). s/p 3 days of vancomycin. Doing well on medical surgical floor - ok to d/c tele. (2) Acute respiratory failure with hypoxia: Current visit: Yes Status: Acute Likely due to acute bronchitis/acute exacerbation of COPD. Improving. Today's breathing issues may have to do with too rapid of a steroid taper and also a little bit of iatrogenic fluid overload. Low probability for PE on VQ scan. Give an extra dose of prednisone, 1 dose of lasix IV. Continue scheduled and prn nebs, symbicort. Continue antibotics. Not requiring oxygen, but tachypenic on exertion. Hopefully will be ready to go home tomorrow. (3) Acute exacerbation of chronic obstructive pulmonary disease (COPD): Current visit: Yes Status: Acute As above (4) Pneumonia: Current visit: Yes Status: Suspected As above (5) Atrial fibrillation with rapid ventricular response: Current visit: Yes Status: Acute Converted to NSR. Continue PO cardizem. Initiated on coumadin. Consult nutrition for coumadin diet. Echo without evidence of intracardiac clots, EF is 65-70%, no evidence of diastolic dysfunction, pulmonary hypertension - 45-55 mm Hg. Patient should undergo sleep study as outpatient. (6) Seizure disorder: Current visit: No Status: Chronic Continue PO keppra. (7) Diabetes type 2, controlled: Current visit: No Status: Chronic Continue to hold oral meds. 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 US renal unremarkable. Continue vicente. Monitor I/O's, daily weights. Monitor with the 1 dose of lasix (9) DVT prophylaxis: Current visit: Yes Status: Acute On heparin SC prophylactically and coumadin (10) Discharge planning issues: Current visit: Yes Status: Acute Full code PT/OT consulted - recommend home health nursing, PT, OT, PATIENT SUPPORT SPECIALIST. Will need a sleep study as outpatient Planned for discharge home tomorrow Subjective Interval history since last seen: Feels a little better today, but still very short of breath on exertion - PT was impressed with this. Denies dizziness, chest pain, nausea, vomiting. Exam Narrative Exam Narrative: General: Elderly male, A&Ox3, sitting up in bed, I again hear the whistling breathing - it is coming from his right nostrill HEENT: EOMI, MMM Cardiovascular: RRR, no m/r/g Lungs: Diminished breath sounds B with bibasilar crackles Gastrointestinal: abdomen is soft, nontender, nondistended, + BS Genitourinary: has a vicente Extremities: trace edema, no c/c BLE's, 2+ pedal pulses B Objective Objective Clinical Data: Abnormal lab results 12/23/18 12/23/18 Range/Units 06:55 06:55 RBC 3.71 L (4.50-6.00) m/cumm Hgb 11.2 L (13.5-17.5) g/dL Hct 34.1 L (40.0-50.0) % RDW 15.0 H (11.8-14.1) % Absolute Neutrophils 8.52 H (1.2-6.7) k/cumm Absolute Lymphocytes 0.48 L (1.2-3.4) k/cumm Chloride 111 H (98-107) mmol/L BUN 53 H (7-18) mg/dL Creatinine 2.38 H (0.70-1.30) mg/dL Glucose 233 H D (70-100) mg/dL Calcium 7.8 L (8.5-10.1) mg/dL Vital Signs Temperature 36.5 C 12/23/18 15:47 Temperature Source Tympanic 12/23/18 15:47 Pulse 87 12/23/18 15:47 Pulse Rhythm Regular 12/23/18 06:16 Pulse 90 12/21/18 13:40 Respiratory Rate 21 12/23/18 15:47 Respiratory Effort Non-Labored 12/23/18 07:55 Respiratory Depth Normal 12/23/18 07:55 Respiratory Pattern Normal 12/23/18 07:55 Blood Pressure 150/81 H 12/23/18 15:47 Blood Pressure Mean 56 12/21/18 10:21 Blood Pressure Position Supine 12/21/18 00:37 Pulse Oximetry 95 12/23/18 15:47 Respiratory End-tidal CO2 27 12/20/18 14:08 Oxygen Delivery Method Room Air 12/23/18 15:47 Oxygen Flow Rate 0 12/23/18 15:47 Fraction of Inspired Oxygen (FIO2) 26 12/21/18 03:30 Pain Level 0 12/23/18 15:47 Comment 12/22/18 04:15 Intake & Output 12/22/18 12/23/18 12/23/18 23:59 11:59 23:59 Intake Total 70 / 982.25 110 / 400 290 / 400 Output Total 900 / 900 1176 / 1576 400 / 1576 Balance -830 / 82.25 -1066 / -1176 -110 / -1176 Weight 110.1 kg Intake: IV 70 / 502.25 110 / 160 50 / 160 Oral 240 / 240 Output: Urine 900 / 900 1175 / 1575 400 / 1575 Stool Other: Urine Color Dark Kirstin Pale Pale Yellow Yellow Straw Straw Urine Appearance Clear Clear Sediment Urine Odor Normal Normal Comment Pt reporting urgency. Pt encouraged to increase PO fluids as his urine is becoming darker. pt c/o pain when he needs to void and shakes upper extremities intermittently. when asked about spasms, agrees of this type of sensation. informed. meds ordered Stool Occult Blood Negative Stool Size Large Large Stool Characteristics Soft Soft Brown Voiding Methods Indwelling Catheter Indwelling Catheter Laboratory Results WBC 9.53 k/cumm (4.4-10.8) 12/23/18 06:55 RBC 3.71 m/cumm (4.50-6.00) L 12/23/18 06:55 Hgb 11.2 g/dL (13.5-17.5) L 12/23/18 06:55 Hct 34.1 % (40.0-50.0) L 12/23/18 06:55 MCV 91.9 fL (80-95) 12/23/18 06:55 MCH 30.2 pg (27.0-33.0) 12/23/18 06:55 MCHC 32.8 g/dL (32.0-36.0) 12/23/18 06:55 RDW 15.0 % (11.8-14.1) H 12/23/18 06:55 Plt Count 272 x1000/uL (130-400) 12/23/18 06:55 MPV 10.6 fL (8.0-11.0) 12/23/18 06:55 Immature Gran % 0.5 12/23/18 06:55 89.5 12/23/18 06:55 5.0 12/23/18 06:55 4.8 12/23/18 06:55 0.1 12/23/18 06:55 0.1 12/23/18 06:55 Absolute Neutrophils 8.52 k/cumm (1.2-6.7) H 12/23/18 06:55 Absolute Lymphocytes 0.48 k/cumm (1.2-3.4) L 12/23/18 06:55 Absolute Monocytes 0.46 k/cumm (0.11-0.7) 12/23/18 06:55 Absolute Eosinophils 0.01 k/cumm (0.0-0.7) 12/23/18 06:55 Absolute Basophils 0.01 k/cumm (0.0-0.2) 12/23/18 06:55 PT 10.0 sec (9.3-11.0) 12/23/18 06:55 INR 1.0 (0.9-1.1) 12/23/18 06:55 APTT 94.1 sec (21.0-31.4) H* D 12/22/18 06:15 Sample Site Right radial 12/20/18 16:30 pCO2 39 mmHg (34-47) 12/20/18 16:30 pO2 85 mmHg (83-108) 12/20/18 16:30 O2 Saturation 97 % (94-98) 12/20/18 16:30 ABG pH 7.37 (7.35-7.45) 12/20/18 16:30 ABG HCO3 23 mmol/L (22-28) 12/20/18 16:30 ABG Total CO2 21 mmol/L (22-29) L 12/20/18 16:30 ABG Base Excess -2.4 mmol/L (-3-3) 12/20/18 16:30 30 % 12/20/18 16:30 Sodium 145 mmol/L (136-145) 12/23/18 06:55 Potassium 4.0 mmol/L (3.5-5.1) 12/23/18 06:55 Chloride 111 mmol/L (98-107) H 12/23/18 06:55 Carbon Dioxide 24.2 mmol/L (21.0-32.0) 12/23/18 06:55 9.8 mmol/L (3-11) 12/23/18 06:55 BUN 53 mg/dL (7-18) H 12/23/18 06:55 2.38 mg/dL (0.70-1.30) H 12/23/18 06:55 26.85 (mL/min/1.73m2) 12/23/18 06:55 Glucose 233 mg/dL (70-100) H D 12/23/18 06:55 1.6 mmol/L (0.6-1.4) H 12/21/18 13:50 Calcium 7.8 mg/dL (8.5-10.1) L 12/23/18 06:55 Magnesium 2.2 mg/dL (1.8-2.4) 12/23/18 06:55 0.7 mg/dL (0.2-1.0) 12/20/18 14:10 AST 30 U/L (15-37) 12/20/18 14:10 ALT 32 U/L (16-63) 12/20/18 14:10 150 U/L (46-116) H 12/20/18 14:10 0.07 ng/mL (0.00-0.06) H 12/21/18 06:40 NT-Pro-B Natriuret Pep 1762 pg/mL (-299) H 12/20/18 14:10 7.8 g/dL (6.4-8.2) 12/20/18 14:10 3.3 g/dL (3.4-5.0) L 12/20/18 14:10 0.2 ng/mL 12/22/18 06:15 TSH 0.99 uIU/mL (0.36-3.74) 12/20/18 14:10 Yellow (Yellow) 12/20/18 15:24 Cloudy (Clear) 12/20/18 15:24 5.5 (5-8) 12/20/18 15:24 Ur Specific [place] 1.025 (1.005-1.025) 12/20/18 15:24 >=300 mg/dL (Negative) H 12/20/18 15:24 Negative mg/dL (Negative) 12/20/18 15:24 Moderate (Negative) H 12/20/18 15:24 Negative (Negative) 12/20/18 15:24 Negative (Negative) 12/20/18 15:24 0.2 EU/dL (Up TO 0.2) 12/20/18 15:24 Ur Leukocyte Esterase Negative (Negative) 12/20/18 15:24 (0-2) 12/20/18 15:24 >50 HPF (0-5) 12/20/18 15:24 Ur Epithelial Cells Negative HPF (Negative) 12/20/18 15:24 Negative HPF (Negative) 12/20/18 15:24 Many HPF (Negative) 12/20/18 15:24 Negative (Negative) 12/20/18 15:24 (Negative) 12/20/18 15:24 Ur Culture Indicated? Yes 12/20/18 15:24 250 mg/dL (Negative) H 12/20/18 15:24
[2018-12-23] MEDS: Furosemide 20 MG/2 ML VIAL IVP (16:28)
[2018-12-23] MEDS: Warfarin 5 MG TAB PO (21:04)
[2018-12-23] MEDS: Atorvastatin 40 MG TAB 80 MG PO (23:03)
[2018-12-24] MEDS: Normal Saline Flush 10 ML SYR IVP ×4 (00:04→11:48)
[2018-12-24] MEDS: Albuterol/Ipratropium 3 ML UPD VIAL UPD ×3 (00:04→11:47)
[2018-12-24 00:06] VITALS: BP 137/79; PULSE 79; RESP 23; TEMP 36.8; O2SAT 95
[2018-12-24] MEDS: Heparin 5,000 UNITS/ML VIAL 5000 UNITS SC ×2 (04:06→11:47)
[2018-12-24] MEDS: PIPERACILLIN/TAZO 3.375 GM in Normal Saline 50 ML IVPB ×2 (04:07→09:46)
[2018-12-24 04:15] VITALS: BP 142/76; PULSE 96; RESP 23; TEMP 36.7; O2SAT 92
[2018-12-24] MEDS: Sertraline 50 MG TAB 100 MG PO (07:48)
[2018-12-24] MEDS: Omeprazole 20 MG CAPCR 40 MG PO (07:48)
[2018-12-24] MEDS: dilTIAZem CD 120 MG CAPCR 240 MG PO (07:48)
[2018-12-24] MEDS: predniSONE 20 MG TAB 60 MG PO (07:48)
[2018-12-24 07:49] LABS: Prothrombin Time 9.9 sec (9.3-11.0)
[2018-12-24] MEDS: Aspirin 81 MG CHEW PO (07:49)
[2018-12-24] MEDS: Finasteride 5 MG TAB PO (07:49)
[2018-12-24] MEDS: Oxybutynin 5 MG TAB PO (07:49)
[2018-12-24] MEDS: Fluticasone NASAL SPRAY 16 GM BTL NS (07:49)
[2018-12-24] MEDS: levETIRAcetam 500 MG TAB PO (07:49)
[2018-12-24] MEDS: Multivitamin TAB 1 TAB PO (07:49)
[2018-12-24] MEDS: Sodium Chloride-Nasal SPRAY-ADULT 44 ML BTL NS ×2 (07:49→11:47)
[2018-12-24] MEDS: Insulin Aspart 300 UNITS/3 ML PEN SC ×2 (07:50→11:48)
[2018-12-24] MEDS: Insulin Aspart 300 UNITS/3 ML PEN 15 UNITS SC ×2 (07:51→11:48)
[2018-12-24] MEDS: Insulin Glargine 300 UNITS/3 ML PEN 60 UNITS SC (07:51)
[2018-12-24] MEDS: Budesonide/Formoterol 160/4.5 6 GM 60 PUFF INH IH (08:23)
--- NOTE | 2018-12-24 11:32 | PT.INTREAT ---
Date of service: 12/24/18 Time of Service: 10:30 PT Notes Inpatient Physical Therapy Treatment Note [facility] Date: 12/24/18 SUBJECTIVE: Ed states that he is going home today. He reports feeling better and ready to go home. OBJECTIVE: [] BED MOBILITY/TRANSFERS Supine-sit: CGA Sit-stand: SBA Stand-sit: SBA GAIT Assistive Device: 4ww Weight bearing: full Assist: SBA Distance: 12'x2 Pt stood in place x approx 5 min to clean after incontinent of stool. THEREX: held ther ex today due to increased SOB after ambulation and having to stand for approx 5 min for cleaning. ASSESSMENT: tolerated session despite SOB and c/o fatigue. PLAN: will continue towards established goals per PT POC TREATMENT CODE/TIME: 20 min. TAx1
[2018-12-24 11:39] VITALS: BP 126/75; PULSE 84; RESP 21; TEMP 36.7; O2SAT 93
[2018-12-24 13:40] VITALS: RESP 18; RESP 20; O2SAT 92; O2SAT 95; O2SAT 96
--- NOTE | 2018-12-24 13:56 | W.PM.DS.N ---
Date of service: 12/24/18 Time of Service: 13:56 DS: Diagnosis Discharge Diagnosis (1) Sepsis: Status: Resolved (2) Acute respiratory failure with hypoxia: Status: Acute (3) Acute exacerbation of chronic obstructive pulmonary disease (COPD): Status: Acute (4) Pneumonia: Status: Suspected (5) Atrial fibrillation with rapid ventricular response: Status: Acute (6) Seizure disorder: Status: Chronic (7) Diabetes type 2, controlled: Status: Chronic (8) Acute kidney injury superimposed on chronic kidney disease: Status: Acute Discharge Plan Disposition Patient Disposition: HOME Condition: Stable Discharge Details Chief Complaint: SOB Clinical Impression: Acute respiratory failure, Sepsis, Atrial fibrillation with RVR, Septic shock Reason For Visit: RAPID AFIB,ACUTE HYPOXIC RESPIRATORY FAILURE Admit Date/Time: 12/20/18 16:29 Admit Provider: Yoselyn Hdz Attending Provider: Yoselyn Hdz Primary Care Provider: Isak Magana ED Provider: Alexander De Anda Hospital Course Hospital Course: Chief Complaint: Dyspnea HPI: 73 year old man with a prior history of COPD, admitted from [facility] Emergency Department on 12/20 with a diagnosis of COPD exacerbation and sepsis. Mr. Panchal has a past Medical History significant for IDDM, prior UTIs in the setting o fUrinary Retention, CKDIII, Seizure disorder, COPD, and PHTN. He also underwent a recent work-up for syncope. He was initially seen in the ED following a Home Health nurse evaluation. He had a reported 2 day history of SOB, and upon arrival to the ED was noted to be in Afib with RVR, with the Afib being a new diagnosis for him. He was also noted to be hypoxic, and required NIV with BiPAP initially. The patient required a cardizem drip, and despite a negative CXR was initiated on empiric antibiotic therapy for potential pneumonia. Following admission the patient underwent treatment with broad-spectrum antibiotic therapy that initially included Vancomycin, and currently remains on Zosyn (Day #5) despite negative imaging that was repeated. Plan will be to conclude therapy with moderate dosed Levofloxacin for potential acute bronchitis. He was also maintained on steroid therapy and nebs, with plans for a slow prednisone taper. He remains on room air, and has ambulated well prior to discharge according to conversation with nursing. His VQ Scan was low probability for PE. The patient's rhythm converted to sinus, and he was maintained on oral cardizem and coumadin, with plans for repeat outpatient INR check. He was also noted to have LUISA superimposed on CKD, slowly improving and with a normal renal ultrasound. Creatinine baseline appears to be 1.7 - 2.3, with current value at the higher end of patient's baseline - his HCTZ and ARB have been on hold. As his sytolic blood pressure has been mostly in the 110-130's (although with instances in the 140-150's as well) will continue to hold these 2 medications for now, and monitor blood pressure and repeat Creatinine/renal function in 3 days. He feels well and is requesting to go home today. Will need home health upon discharge. Of note, patient has a vicente in place which will be discontinued at discharge. He reports self-cathing at home, which is what he will resume upon return home. Home Meds and New Rx's Prescriptions: New prednisone 20 mg tablet 20 mg PO DAILY Qty: 36 RF: 0 warfarin [Coumadin] 6 mg tablet 6 mg PO DAILY Qty: 30 RF: 0 levofloxacin 500 mg tablet 500 mg PO DAILY Qty: 2 RF: 0 Continued omeprazole 40 MG capsule,delayed release(DR/EC) 40 mg PO BID Qty: 60 RF: 3 multivitamin 1 EACH tablet 1 tab PO DAILY RF: 0 sertraline 100 MG tablet 100 mg PO DAILY RF: 0 aspirin 81 MG tablet,chewable 81 mg PO DAILY RF: 0 Novolog Flexpen U-100 Insulin 300 UNITS/3 ML insulin pen 22 unit SQ AC RF: 0 atorvastatin [Lipitor] 40 MG tablet 80 mg PO HS RF: 0 levetiracetam [Keppra] 500 MG tablet 500 mg PO BID RF: 0 Novolog Flexpen U-100 Insulin 300 UNITS/3 ML insulin pen 0 units Sub-Q 0800,1200,1700 RF: 0 Trulicity 0.75 mg/0.5 mL Pen Injector See Rx Instructions .ROUTE .COMPLEX RF: 0 acetaminophen 325 mg Tablet 650 mg PO Q4H PRN PRNRF: 0 Basaglar KwikPen U-100 Insulin 100 unit/mL (3 mL) Insulin Pen 60 unit SUBCUT BID RF: 0 fluticasone propion-salmeterol [Advair Diskus] 250-50 mcg/dose Blister With Device 1 inh INHALATION BID RF: 0 diltiazem HCl [DILT-XR] 240 mg Capsule,Ext.Rel 24h Degradable 240 mg PO DAILY RF: 0 melatonin 3 mg Tablet 3 mg PO HS PRNRF: 0 bisacodyl 10 mg Suppository 10 mg WA DAILY PRNRF: 0 albuterol sulfate [ProAir HFA] 90 mcg/actuation Hfa Aerosol Inhaler 2 puff INHALATION Q6H PRNRF: 0 finasteride 5 mg Tablet 5 mg PO DAILY RF: 0 Spiriva with HandiHaler 18 mcg Capsule, W/Inhalation Device 1 cap INHALATION DAILY RF: 0 Januvia 50 mg Tablet 50 mg PO DAILY RF: 0 tamsulosin 0.4 MG capsule 0.8 mg PO DAILY Qty: 60 RF: 0 polyethylene glycol 3350 [Miralax] 17 gram/dose powder 17 gm PO BID Qty: 119 RF: 0 Discontinued losartan 50 MG tablet 50 mg PO DAILY RF: 0 hydrochlorothiazide 25 MG tablet 25 mg PO DAILY RF: 0 cefpodoxime 200 mg tablet 200 mg PO BID Qty: 22 RF: 0 Discharge Instructions Activity:: No Strenuous Activity Equipment/Supplies:: No Equipment Needed Diet:: Carb Counting Discharge Orders Discharge Orders: Discharge Order (Routine); Ordered 12/24/18 Ordered By: Willie Sheehan Exam Narrative Exam Narrative: General: Patient appears comfortable, AAOX3, NAD Neck: Supple CV: Regular, nontachycardic, S1S2, No rubs, murmurs, or gallops. Pulmonary: Clear to auscultation bilaterally, decreased breathsounds at the basis, minimal crackles, no wheezing or rhonchi Abdomen: + Bowel Sounds, soft, nontender, nondistended Vascular: No lower extremity edema : Vicente in place Psych: Normal mood and affect. DS: Data Vitals/I&O Vitals and I&O: Vital Signs Temperature 36.7 C 12/24/18 11:39 Temperature Source Tympanic 12/24/18 11:39 Pulse 84 12/24/18 11:39 Pulse Rhythm Regular 12/24/18 07:35 Pulse 90 12/21/18 13:40 Respiratory Rate 21 12/24/18 11:39 Respiratory Effort 12/24/18 07:35 Respiratory Depth Normal 12/24/18 07:35 Respiratory Pattern Normal 12/24/18 07:35 Blood Pressure 126/75 12/24/18 11:39 Blood Pressure Mean 56 12/21/18 10:21 Blood Pressure Position Supine 12/21/18 00:37 Pulse Oximetry 93 L 12/24/18 11:39 Respiratory End-tidal CO2 12/20/18 14:08 Oxygen Delivery Method Room Air 12/24/18 11:39 Oxygen Flow Rate 0 12/24/18 11:39 Fraction of Inspired Oxygen (FIO2) 26 12/21/18 03:30 Pain Level 0 12/24/18 11:39 Comment 12/23/18 20:36 Intake & Output 12/23/18 12/24/18 12/24/18 23:59 11:59 23:59 Intake Total 940 / 1530 100 / 150 50 / 150 Output Total 2125 / 3301 700 / 700 Balance -1185 / -1771 -600 / -550 50 / -550 Weight 110.1 kg Intake: IV 100 / 210 100 / 150 50 / 150 Oral 840 / 1320 Output: Urine 2125 / 3300 700 / 700 Other: Urine Color Pale Pale Yellow Yellow Urine Appearance Sediment Clear Urine Odor Normal Comment pt c/o pain when he needs to void and shakes upper extremities intermittently. when asked about spasms, agrees of this type of sensation. informed. meds ordered Stool Size Large Stool Characteristics Formed Brown Voiding Methods Indwelling Catheter Completed studies during hospitalization [Text1]: Exam(s) 12/20/2018 a RAD:XR portable chest AP SYMPTOMS/DIAGNOSIS: SHORTNESS OF BREATH, COUGH, WHEEZE PORTABLE CHEST: Comparison is made with [id number]. The heart size is normal. Leads are seen over the chest. The lungs appear clear. No pneumothorax, infiltrate or effusion is seen. IMPRESSION: Negative portable chest. --------- Exam(s) 12/20/2018 a RAD:XR portable chest AP post line SYMPTOM/DIAGNOSIS: CONFIRMATION OF CENTRAL LINE PLACEMENT PORTABLE AP CHEST AT 352 PM: Comparison is made with earlier in the day. Heart size and pulmonary vasculature are stable and within normal limits. There are no focal consolidating infiltrates, effusions or pneumothoraces identified. There has been interval placement of a central venous catheter, the tip of the catheter is in good position at the superior vena cava. IMPRESSION: New right sided central venous catheter. The tip of which is in good position in the superior vena cava, otherwise no change in appearance of the chest xray compared to the prior examination. -------- Exam(s) 12/21/2018 a NM:NM lung scan & vent perf aeros SYMPTOM/DIAGNOSIS: INCREASING SOB, HYPOXIA, TACHYCARDIA, RESPIRATORY FAILURE VENTILATION PERFUSION LUNG SCAN: The patient received 5 millicuries of Technetium 99 M MAA for the perfusion scan and 36 millicuries of Technetium 99 M DTPA for the ventilation portion of the examination. No wedge shaped pleural based mismatches are identified to suggest pulmonary embolism. The ventilation examination shows heterogeneous uptake suggestive airtrapping. IMPRESSION: No findings to suggest pulmonary embolus. Low probability examination. Exam(s) 12/21/2018 a US:US renal SYMPTOMS/DIAGNOSIS: LUISA RENAL ULTRASOUND: Routine examination was performed. The right kidney measures 11.1 cm. The left kidney measures 10 cm long. No renal mass, calculus or obstruction is seen. There is symmetric blood flow to the kidneys. There is a Vicente catheter in the bladder which was not distended. Bladder evaluation was therefore very limited. IMPRESSION: Unremarkable sonographic evaluation of the kidneys. --------- Exam(s) Date of study: 12/21/2018 Transthoracic Echocardiography M-mode, complete 2D, complete spectral Doppler, and color Doppler *STUDY CONCLUSIONS* Summary: 1. Left ventricle: The cavity size was normal. Systolic function was hyperdynamic. The estimated ejection fraction was 65-70%. Diastolic parameters were normal for age. There was no evidence of elevated ventricular filling pressure by Doppler parameters. 2. Right ventricle: The cavity size was mildly dilated. Systolic function was normal. 3. Atrial septum: No defect or patent foramen ovale was identified. 4. Pulmonary arteries: Pulmonary systolic pressure was in the range of 45mm Hg to 55mm Hg. 5. Inferior vena cava: The vessel was patent and normal in size. The respirophasic diameter changes were in the normal range (greater than or equal to 50%), consistent with normal central venous pressure. --------- Exam(s) 12/22/2018 a RAD:XR portable chest AP SYMPTOM/DIAGNOSIS: F/U SUSPECTED PNEUMONIA CHEST X-RAY: Portable AP view. Comparison 12/20/18 Heart size and pulmonary vasculature are stable and within normal limits. No focal consolidating infiltrates, effusions or pneumothoraces are identified. Degenerative changes are seen in the spine. IMPRESSION: No acute pulmonary process. Labs on day of discharge: Labs from last 24 hours 12/24/18 07:20 PT 9.9 INR 1.0 Preliminary micro results at discharge 12/20/18 14:56 Blood Culture - Preliminary Blood NO GROWTH 72 HOURS 12/20/18 14:50 Blood Culture - Preliminary Blood NO GROWTH 72 HOURS [facility] Medical History Cerebrovascular disease (Chronic) CVA CKD (chronic kidney disease) (Acute) COPD (chronic obstructive pulmonary disease) (Chronic) Diabetes (Chronic) Diabetic gastroenteropathy (Acute) GERD (gastroesophageal reflux disease) (Chronic) HTN (hypertension) (Chronic) Hyperlipidemia (Acute) Seizure (Acute) Urinary retention (Acute) Surgical History EGD - MAC (07/28/16) Social History Smoking/Tobacco Use Status: Former Tobacco Use Alcohol Intake: never Drug use: Never Substance use type: does not use Do you feel safe in your relationship?: Yes
--- NOTE | 2018-12-24 14:38 | HHF2F_ITS ---
1. Encounter Date and Reason I certify that REJI THORPE was seen by Willie Sheehan on 12/24/18 and that I had a [id number] encounter with this patient that meets the physician face to face encounter requirements. 2. Clinical Findings Supporting Skilled Need and Homebound Status I certify that home health services are medically necessary, include either intermittent longterm and/or physical/speech therapy, and that this patient is homebound in that absences from the home require considerable and taxing effort and are infrequent or of short duration, or are attributable to the need to receive medical care. [X] (a) Attached documentation from encounter provides clinical findings supporting skilled need and homebound status (including what assistance patient requires to leave the home). The encounter with the patient was in whole, or in part, for the following medical condition, which is the primary reason for home health care: RAPID AFIB,ACUTE HYPOXIC RESPIRATORY FAILURE Nursing Home: Medication follow-up. Blood Pressure and vitals, including oxygenation. Renal panel and INR in 3 days. 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 Certification and Authentication I certify that I composed the above information based on my clinical judgement relating to this patient's medical condition and, if applicable, clinical findings communicated to me by the NPP or inpatient physician who performed the Home Health Referral. All further orders will be obtained through Iask Magana (Community Based Physician - PCP)
--- NOTE | 2018-12-24 16:13 | CMDISCH_ITS ---
- If Service Date Differs Date of service: 12/24/18 Time of Service: 16:13 LACE Index Scoring Tool - Questions: Length of Stay (in days): 4 - 6 Acuity (Admit via E.D.?): Yes Comorbidities: Cerebrovascular Disease, Mild Liver/Renal Disease E.D. 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 He will transport home with his son. Doroteo states he feels ready to return home. He will continue on oral Abx, and follow up with his provider. Patient/Family Education Needs: Discharge education, limitations and follow up plan of care including ask me three and self management. Services Needed at Discharge: Home Health Care Services, Occupational Therapy, Physical Therapy
== END 2018-12-24 17:49 | disposition home or self-care (01) | DRG 871 ==
LOC: ER 16:11 → ICU 17:16 → MS 12-21 13:36
PROVIDERS: Internal Medicine; Admitting Provider Internal Medicine; Emergency Provider Student in an Organized Health Care Education/Training Program; PCP Family Medicine; Visit Provider Internal Medicine
DX: A41.9 Sepsis, unspecified organism (principal); J96.01 Acute respiratory failure with hypoxia; J44.1 Chronic obstructive pulmonary disease with (acute) exacerbation; J44.0 Chronic obstructive pulmonary disease with (acute) lower respiratory infection; N17.9 Acute kidney failure, unspecified; N39.0 Urinary tract infection, site not specified; J20.9 Acute bronchitis, unspecified; I48.91 Unspecified atrial fibrillation; G40.909 Epilepsy, unspecified, not intractable, without status epilepticus; E11.22 Type 2 diabetes mellitus with diabetic chronic kidney disease; N18.3 Chronic kidney disease, stage 3 (moderate); I27.20 Pulmonary hypertension, unspecified; E86.0 Dehydration; Z87.891 Personal history of nicotine dependence; R33.9 Retention of urine, unspecified; Z87.440 Personal history of urinary (tract) infections; I12.9 Hypertensive chronic kidney disease with stage 1 through stage 4 chronic kidney disease, or unspecified chronic kidney disease; Z71.3 Dietary counseling and surveillance; Z79.4 Long term (current) use of insulin; B95.2 Enterococcus as the cause of diseases classified elsewhere; B96.89 Other specified bacterial agents as the cause of diseases classified elsewhere; Z16.19 Resistance to other specified beta lactam antibiotics; Z16.23 Resistance to quinolones and fluoroquinolones
CPT/HCPCS: 36415; 36556; 36592; 71045; 76770; 80048; 80053; 82805; 84145; 87040; 87077; 93005; 93306; 94640; 96361; 96365; 96368; 97110; 97162; 97165; 97530; 97535; 99232; 99239; 99291; 36600; 78582; 81003; 81015; 83605; 83735; 83880; 84443; 84484; 85025; 85610; 85730; 87070; 87086; 87186; 87205; 93010; 94660; J0610; J1644; J1941; J1953; J2543; J2930; J3475; J7512; J7613; J7620; J7633

== ENCOUNTER 2018-12-28 17:40 | Outpatient (REF) | payer MEDICARE, SELFPAY ==
[2018-12-28 18:32] LABS: Anion Gap 8.2 mmol/L (3-11); BUN 44 mg/dL (7-18); CO2 29.8 mmol/L (21.0-32.0); CREATININE 2.07 mg/dL (0.70-1.30); Calcium 8.2 mg/dL (8.5-10.1); Chloride 109 mmol/L (98-107); Estimated GFR 31.55 (mL/min/1.73m2); Glucose 263 mg/dL (70-100); Potassium 3.9 mmol/L (3.5-5.1); Sodium 147 mmol/L (136-145)
== END 2018-12-28 18:00 ==
LOC: NCHCN 17:40
PROVIDERS: PCP Family Medicine; Visit Provider Family Medicine
DX: J18.9 Pneumonia, unspecified organism (principal); J44.9 Chronic obstructive pulmonary disease, unspecified; J96.01 Acute respiratory failure with hypoxia; E11.22 Type 2 diabetes mellitus with diabetic chronic kidney disease; N18.3 Chronic kidney disease, stage 3 (moderate)
CPT/HCPCS: 80048

== ENCOUNTER 2019-01-03 11:26 | Outpatient (CLI) | payer MEDICARE, SELFPAY | END 2019-01-03 11:46 | PROVIDERS: PCP Family Medicine; Referring Provider Family Medicine; Visit Provider Student in an Organized Health Care Education/Training Program | DX: I48.0 Paroxysmal atrial fibrillation (principal); I47.2 Ventricular tachycardia | CPT/HCPCS: 0298T ==

== ENCOUNTER 2019-01-09 14:51 | Outpatient (REF) | payer MEDICARE, SELFPAY ==
[2019-01-09 19:42] LABS: Magnesium 1.7 mg/dL (1.8-2.4)
== END 2019-01-09 15:11 ==
LOC: NCHCN 14:51
PROVIDERS: PCP Family Medicine; Visit Provider Family Medicine
DX: I49.3 Ventricular premature depolarization (principal)
CPT/HCPCS: 83735

== ENCOUNTER → 2019-02-13 13:33 | Outpatient (BNVA) | payer MEDICARE, SELFPAY | PROVIDERS: PCP Family Medicine; Referring Provider Nurse Practitioner; Visit Provider Psychiatry & Neurology Neurology | DX: R55 Syncope and collapse (principal); R29.2 Abnormal reflex; J44.9 Chronic obstructive pulmonary disease, unspecified; I12.9 Hypertensive chronic kidney disease with stage 1 through stage 4 chronic kidney disease, or unspecified chronic kidney disease; N18.9 Chronic kidney disease, unspecified; E11.22 Type 2 diabetes mellitus with diabetic chronic kidney disease; Z79.4 Long term (current) use of insulin | CPT/HCPCS: 99214 ==

== ENCOUNTER 2019-02-22 01:14 | Outpatient (CLI) | payer MEDICARE, SELFPAY ==
--- NOTE | 2019-02-22 15:37 | DI.MRI_ITS ---
EXAM: MR CERVICAL SPINE WO CLINICAL HISTORY: bilateral Babinski, R29.2 ABNORMAL REFLEX. TECHNIQUE: Multiplanar multisequence MRI was performed. FINDINGS: The cord signal is normal. There is mild posterior disc bulging at C 3-4 through C7-T1. No disc her niation is seen. There is no central canal stenosis. There is left neural foraminal narrowing at C3 -4 secondary to a combination of disc osteophytes and facet degenerative changes. The remaining neur al foramina appear patent. Marrow signal is normal. IMPRESSION: Degenerative changes causing neural foraminal narrowing on the left side at C3-4.
== END 2019-02-22 01:34 ==
PROVIDERS: PCP Family Medicine; Visit Provider Psychiatry & Neurology Neurology
DX: R29.2 Abnormal reflex (principal); M50.21 Other cervical disc displacement, high cervical region; M47.812 Spondylosis without myelopathy or radiculopathy, cervical region
CPT/HCPCS: 72141

== ENCOUNTER 2019-03-10 14:37 | Inpatient (IN) | payer MEDICARE, SELFPAY ==
[2019-03-10] VITALS (7 sets, daily range): BP systolic 127–169; BP diastolic 80–87; PULSE 84–94; RESP 18–20; TEMP 37–37.1; O2SAT 91–94
--- NOTE | 2019-03-10 15:10 | ED.GENADUL_ITS ---
Discharge Plan Disposition Patient Disposition: [facility] INPATIENT Condition: Improving Discharge Details Chief Complaint: AMS/LOC Clinical Impression: Atrial fibrillation, Elevated troponin Admit Date/Time: 03/11/19 16:29 Admit Provider: Dante Iglesias Attending Provider: Dante Iglesias Primary Care Provider: Isak Magana ED Provider: Kwadwo Ambrosio Discharge Data Discharge Date/Time-TO BE ENTERED AT DEPARTURE: 03/10/19 20:05 Medical Decision Making 73-year-old male presents via EMS. It is reported he called complaining of shortness of breath. He was reported to have vomiting at home, was found slumped over with altered mental status. This improved by the time of arrival to the ER. Patient states to me that he had both vomiting as well as one episode of bloody urine. He is a diabetic, is anticoagulated, has a history of seizures for which he takes Keppra. He arrives a temp of 37, pulse in the 90s, blood pressure 127/87. He is improved and is without significant complaint at this time. The patients son states he has frequent urinary tract infections with hematuria. He also has intermittent vomiting over the years time. Differential diagnosis would include seizure, arrhythmia, electrolyte abnormality or dehydration. Patient referred for noncontrast CT scan of the head, chest x-ray, laboratory analysis with UA. CBC reveals a white blood cell count of 9, hematocrit 38, platelets 276. Sodium 142, potassium 3.9, chloride 105, bicarb 28, BUN 22, creatinine 1.8. Troponin positive in an indeterminate range at 0.08. CT scan of the head unremarkable for acute process. Chest x-ray no focal infiltrate. Patient remains improved and without persistent complaint. His probable syncope, history of paroxysmal atrial fibrillation, history of seizure and indeterminate range troponin today are concerning and would therefore consider admission overnight on telemetry. ECG Data Attestation: I personally reviewed and interpreted this ECG (s) as follows: Interpretation: Normal sinus rhythm, rate of 90, the QRS is narrow, there is no ST segment elevation present HPI General Mode of arrival: ambulatory . Date/Time Provider Initiated Documentation: 03/10/19 14:47 . Limitations to Documentation: no limitations . Information obtained by: patient . History of Present Illness 73 year old M presents to the emergency department with the chief complaint of Question altered mental status, vomited at home, hematuria, described as moderate, and is localized to the abdomen. Patient started experiencing this hour(s) and it has been now resolved. No relieving factors improve symptom(s), No exacerbating factors reported . Patient did receive the following treatments prior to arrival, none Related Data Home Medications Medication Instructions Recorded Confirmed multivitamin 1 tab PO DAILY 02/08/15 03/12/19 sertraline 100 mg PO DAILY 02/08/15 03/12/19 omeprazole 40 mg PO DAILY #60 tab-cap 08/14/16 03/12/19 atorvastatin [Lipitor] 80 mg PO HS tab 10/18/17 03/12/19 levetiracetam [Keppra] 500 mg PO BID tab 10/18/17 03/12/19 albuterol sulfate [ProAir HFA] 2 puff INHALATION Q6H PRN 12/04/18 03/12/19 diltiazem HCl [DILT-XR] 240 mg PO DAILY 12/04/18 03/12/19 finasteride 5 mg PO DAILY 12/04/18 03/12/19 fluticasone propion-salmeterol 1 inh INHALATION BID 12/04/18 03/12/19 [Advair Diskus] melatonin 3 mg PO HS PRN 12/04/18 03/12/19 tamsulosin 0.8 mg PO DAILY #60 cap 12/06/18 03/12/19 Trulicity See Rx Instructions .ROUTE .COMPLEX 12/20/18 03/12/19 Novolog Flexpen U-100 Insulin 10 unit SQ AC #0 ml 03/16/19 03/12/19 acetaminophen 650 mg PO Q6H PRN PRN #0 tab 03/16/19 03/12/19 insulin aspart U-100 [Novolog 0 units SUBCUT AC & HS #0 ml 03/16/19 Flexpen U-100 Insulin] insulin glargine [Lantus Solostar 15 units SUBCUT BID #0 ml 03/16/19 U-100 Insulin] metoprolol tartrate 12.5 mg PO BID #0 tab 03/16/19 tiotropium bromide [Spiriva 2 puff INHALATION DAILY #0 g 03/16/19 Respimat] Previous Rx's Medication Instructions Recorded atorvastatin [Lipitor] 80 mg PO HS tab 10/18/17 levetiracetam [Keppra] 500 mg PO BID tab 10/18/17 tamsulosin 0.8 mg PO DAILY #60 cap 12/06/18 Novolog Flexpen U-100 Insulin 10 unit SQ AC #0 ml 03/16/19 acetaminophen 650 mg PO Q6H PRN PRN #0 tab 03/16/19 insulin aspart U-100 [Novolog 0 units SUBCUT AC & HS #0 ml 03/16/19 Flexpen U-100 Insulin] insulin glargine [Lantus Solostar 15 units SUBCUT BID #0 ml 03/16/19 U-100 Insulin] metoprolol tartrate 12.5 mg PO BID #0 tab 03/16/19 tiotropium bromide [Spiriva 2 puff INHALATION DAILY #0 g 03/16/19 Respimat] Allergies Allergy/AdvReac Type Severity Reaction Status Date / Time No Known Allergies Allergy Unverified 02/13/19 13:57 General Stated Complaint: AMS/LOC KAELA: 2 Review of Systems Narrative: Patient states he had hematuria at home, vomited at home. Denies headache or injury. No chest pain. 6 systems reviewed and otherwise negative [facility] Medical History Cerebrovascular disease (Chronic) CVA CKD (chronic kidney disease) (Acute) COPD (chronic obstructive pulmonary disease) (Chronic) Diabetes (Chronic) Diabetic gastroenteropathy (Acute) GERD (gastroesophageal reflux disease) (Chronic) HTN (hypertension) (Chronic) Hyperlipidemia (Acute) Seizure (Acute) Urinary retention (Acute) Surgical History EGD - MAC (07/28/16) S/P insertion of penile implant (Acute) S/P prostatectomy (Acute) Social History Smoking/Tobacco Use Status: Former Tobacco Use Alcohol Intake: never Drug use: Never Substance use type: does not use Household members: children 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 Pleasant, well groomed, interactive. HEAD: Normocephalic, atraumatic ENT: Mucous membranes moist, oropharynx unremarkable, External ear exam unremarkable EYES: PERRL, EOMI NECK: Full ROM, no CLARISSA, no menigismus CHEST/RESP: Nontender, clear to auscultation bilateral, no wheeze/rhonchi/rales CARDIOVASCULAR: RRR, no murmur, rub more. 2+ Rad pulse bilateral ABDOMEN: Soft, nontender, no mass. +Bowel sounds EXT: Full ROM, no edema, no rash Neuro: Grossly normal neurologic exam, conversant, interactive. Psych: Speech fluent, thoughts congruent, affect normal Course Vital Signs Vital signs: Vital Signs Temperature 37.1 C 03/10/19 14:40 Pulse 93 H 03/10/19 14:40 Respiratory Rate 20 03/10/19 14:40 Blood Pressure 127/87 03/10/19 14:40 Pulse Oximetry 93 L 03/10/19 14:40 Temperature 37.1 C 03/10/19 14:40 Temperature Source Skin 03/10/19 14:40 Pulse 93 H 03/10/19 14:40 Respiratory Rate 20 03/10/19 14:40 Blood Pressure 127/87 03/10/19 14:40 Blood Pressure Position Sitting 03/10/19 14:40 Pulse Oximetry 93 L 03/10/19 14:40 Oxygen Delivery Method Room Air 03/10/19 14:40 Oxygen Flow Rate 0 03/10/19 14:40 Pain Level 0 03/10/19 14:40
[2019-03-10 15:41] LABS: Abs Immature Grans 0.02 k/cumm (0.0-0.09); Absolute Basophil Count 0.02 k/cumm (0.0-0.2); Absolute Eosinophil Count 0.39 k/cumm (0.0-0.7); Absolute Lymphocyte Count 0.85 k/cumm (1.2-3.4); Absolute Monocyte Count 0.39 k/cumm (0.11-0.7); Absolute Neutrophil Count 7.88 k/cumm (1.2-6.7); Basophils % 0.2; Eosinophils % 4.1; HCT 38.8 % (40.0-50.0); HGB 12.6 g/dL (13.5-17.5); Immature Grans % 0.2; Lymphocytes % 8.9; Mean Corp. HGB Concentration 32.5 g/dL (32.0-36.0); Mean Corpuscular Hemoglobin 28.6 pg (27.0-33.0); Mean Corpuscular Volume 88.2 fL (80-95); Mean Platelet Volume 10.5 fL (8.0-11.0); Monocytes % 4.1; Neutrophils % 82.5; Platelet Count 276 x1000/uL (130-400); RBC Distribution Width 14.5 % (11.8-14.1); White Blood Cell Count 9.55 k/cumm (4.4-10.8)
--- NOTE | 2019-03-10 15:42 | DI.CT_ITS ---
EXAM: CT HEAD WO CLINICAL HISTORY: vomiting, ? syncope COMPARISON: CT HEAD WO from 12/03/2018 FINDINGS: The ventricles and sulci are consistent with the patient's age. There is small vessel ischemic disea se. There are bilateral lacunar infarcts present. No acute intracranial hemorrhage, midline shift o r mass effect is identified. The ventricles are intact. The basilar cisterns are patent. The visua lized paranasal sinuses and mastoid air cells are well pneumatized. The calvarium is intact. IMPRESSION: No acute intracranial process. The findings were discussed with the Emergency Department on the date of the examination.
[2019-03-10 15:44] LABS: ALT 20 U/L (16-63); AST 16 U/L (15-37); Alkaline Phosphatase 119 U/L (46-116); Anion Gap 8.2 mmol/L (3-11); BUN 22 mg/dL (7-18); Bilirubin, Total 0.4 mg/dL (0.2-1.0); CO2 28.8 mmol/L (21.0-32.0); CREATININE 1.84 mg/dL (0.70-1.30); Calcium 8.5 mg/dL (8.5-10.1); Chloride 105 mmol/L (98-107); Estimated GFR 36.14 (mL/min/1.73m2); Glucose 250 mg/dL (70-100); Magnesium 1.7 mg/dL (1.8-2.4); Potassium 3.9 mmol/L (3.5-5.1); Sodium 142 mmol/L (136-145); Total Protein 6.6 g/dL (6.4-8.2)
[2019-03-10 15:47] LABS: Prothrombin Time 10.4 sec (9.3-11.0); Troponin I 0.08 ng/mL (0.00-0.06)
--- NOTE | 2019-03-10 15:52 | DI.RAD_ITS ---
EXAM: XR CHEST 2V PA LATERAL INDICATION: ? syncope, vomiting. COMPARISON: XR PORTABLE CHEST AP from 12/22/2018 TECHNIQUE: 2D digital imaging was performed. AP and lateral views FINDINGS: Heart size is within normal limits. Lungs appear clear. No infiltrate, effusion or pulmonary edema is seen. There is no evidence of pneumothorax or thoracic compression fracture. Degenerative hope es are seen in the spine. IMPRESSION: No acute abnormality.
[2019-03-10 17:01] LABS: Bilirubin Negative (Negative); Blood Large (Negative); Clarity Cloudy (Clear); Glucose 100 mg/dL (Negative); Ketones Negative (Negative); Leukocyte Esterase Negative (Negative); Nitrite Negative (Negative); Specific Gravity 1.025 (1.005-1.025); Urobilinogen 0.2 EU/dL (Up TO 0.2)
[2019-03-10 17:08] LABS: WBC Negative HPF (0-5)
[2019-03-10 17:09] LABS: Bacteria Negative HPF (Negative); C & S Indicated? No; Casts Negative LPF (Negative); Crystals Negative HPF (Negative); Epithelial Cells Negative HPF (Negative); Mucus Negative (Negative); Other Cells Negative (Negative); RBC >50 HPF (0-2)
--- NOTE | 2019-03-10 18:20 | W.PM.HP.N ---
Date of service: 03/10/19 Time of Service: 18:20 Assessment and Plan Assessment and plan (1) Nausea: Status: Acute Assessment and plan: Nausea, entirely non-specific, in setting of apparently altered mental status when first found. r/o ACS, r/o seizure, r/o arrthymia, r/o gastroenteritis, r/o UTI. For now I would trend the troponins, give IVF and prn anti-emetics, check urine culture ( for hematuria,despite absence of pyuria) -- and see what may evolve.Will continue usual meds as is otherwise except hold basal insulin until taking PO and coverr with SS for now. History of Present Illness History of Present Illness Chief Complaint: nausea Narrative: 73 male with MMP, called EMS today because he feelt nauseous (in ER report it was SOB), vomited (which he says he does from time to time).Reportedly was slumped over when EMS arrivd though there is no report of any abnormal vital signs. By the time of arrival patient was feeling more or less his usual self, though he (now) tells me that he still feels a little queasy. In ER w/u of note for norrmal CBC and electrolytes, baseline azotemia (Cr. 1.8), microscopic hematuria (patient states this is not unusual for him, on ISC program) and troponin of 0.08, without EKG changes. Patient given 162 mg ASA and admitted for further evaluation. Review of Systems All systems reviewed & are unremarkable except as noted in HPI and below PFSH Medical History Cerebrovascular disease (Chronic) CVA CKD (chronic kidney disease) (Acute) COPD (chronic obstructive pulmonary disease) (Chronic) Diabetes (Chronic) Diabetic gastroenteropathy (Acute) GERD (gastroesophageal reflux disease) (Chronic) HTN (hypertension) (Chronic) Hyperlipidemia (Acute) Seizure (Acute) Urinary retention (Acute) Surgical History EGD - MAC (07/28/16) S/P insertion of penile implant (Acute) S/P prostatectomy (Acute) Social History Smoking/Tobacco Use Status: Former Tobacco Use Alcohol Intake: never Drug use: Never Substance use type: does not use Household members: children 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 What is your relationship status?: Panel score (0-1 are the most socially isolated patients): 0 Seatbelt use: never Do you feel safe in your relationship?: Yes Meds Home Medications and Allergies Home Medications Medication Instructions Recorded Confirmed Type Novolog Flexpen U-100 Insulin 22 unit SQ AC 02/08/15 12/20/18 History aspirin 81 mg PO DAILY 02/08/15 12/20/18 History multivitamin 1 tab PO DAILY 02/08/15 12/20/18 History sertraline 100 mg PO DAILY 02/08/15 12/20/18 History omeprazole 40 mg PO BID #60 tab-cap 08/14/16 12/20/18 History Novolog Flexpen U-100 Insulin 0 units SUB-Q 0800,1200,1700 pen 10/18/17 12/20/18 Rx atorvastatin [Lipitor] 80 mg PO HS tab 10/18/17 12/20/18 Rx levetiracetam [Keppra] 500 mg PO BID tab 10/18/17 12/20/18 Rx Januvia 50 mg PO DAILY 12/04/18 12/20/18 History Spiriva with HandiHaler 1 cap INHALATION DAILY 12/04/18 12/20/18 History albuterol sulfate [ProAir HFA] 2 puff INHALATION Q6H PRN 12/04/18 12/20/18 History diltiazem HCl [DILT-XR] 240 mg PO DAILY 12/04/18 12/20/18 History finasteride 5 mg PO DAILY 12/04/18 12/20/18 History fluticasone propion-salmeterol 1 inh INHALATION BID 12/04/18 12/20/18 History [Advair Diskus] melatonin 3 mg PO HS PRN 12/04/18 12/20/18 History tamsulosin 0.8 mg PO DAILY #60 cap 12/06/18 12/20/18 Rx Basaglar KwikPen U-100 Insulin 60 unit SUBCUT BID 12/20/18 12/20/18 History Trulicity See Rx Instructions .ROUTE .COMPLEX 12/20/18 12/20/18 History acetaminophen 650 mg PO Q4H PRN PRN 12/20/18 12/20/18 History rivaroxaban 15 mg tablet 15 mg PO DAILY 02/13/19 02/13/19 History Allergies Allergy/AdvReac Type Severity Reaction Status Date / Time No Known Allergies Allergy Unverified 02/13/19 13:57 Exam Narrative Exam Narrative: 127/87, 93, 37.1, 93% RA. HEENT Atraumatic, no tongue bledeing; neck supple; lungs dimished, scaTTERED WHEEZE; HEART DISTANT BUT rrr; ABDOMEN SOFT AND nt; gu/RECTAL DEFERRED; extremiteis 1+ pedal edema; neuro ox3, non-focal Results Labs Result diagrams: 03/10/19 15:00 03/10/19 15:00 Labs: Laboratory Results - last 24 hr 03/10/19 03/10/19 03/10/19 15:00 15:00 15:00 WBC 9.55 RBC 4.40 L Hgb 12.6 L Hct 38.8 L MCV 88.2 MCH 28.6 MCHC 32.5 RDW 14.5 H Plt Count 276 MPV 10.5 Immature Gran % 0.2 Neutrophils % 82.5 Lymphocytes % 8.9 Monocytes % 4.1 Eosinophils % 4.1 Basophils % 0.2 Absolute Neutrophils 7.88 H Absolute Lymphocytes 0.85 L Absolute Monocytes 0.39 Absolute Eosinophils 0.39 Absolute Basophils 0.02 PT 10.4 INR 1.0 Sodium 142 Potassium 3.9 Chloride 105 Carbon Dioxide 28.8 Anion Gap 8.2 BUN 22 H Creatinine 1.84 H Estimated GFR/1.73 m2 36.14 Glucose 250 H Calcium 8.5 Magnesium 1.7 L Total Bilirubin 0.4 AST 16 ALT 20 Alkaline Phosphatase 119 H Troponin I 0.08 H* Total Protein 6.6 Albumin 3.0 L Urine Color Urine Clarity Urine pH Ur Specific [place] Urine Protein Urine Ketones Urine Blood Urine Nitrite Urine Bilirubin Urine Urobilinogen Ur Leukocyte Esterase Urine RBC Urine WBC Ur Epithelial Cells Urine Crystals Urine Bacteria Urine Casts Urine Mucus Urine Other Ur Culture Indicated? Urine Glucose 03/10/19 16:57 WBC RBC Hgb Hct MCV MCH MCHC RDW Plt Count MPV Immature Gran % Neutrophils % Lymphocytes % Monocytes % Eosinophils % Basophils % Absolute Neutrophils Absolute Lymphocytes Absolute Monocytes Absolute Eosinophils Absolute Basophils PT INR Sodium Potassium Chloride Carbon Dioxide Anion Gap BUN Creatinine Estimated GFR/1.73 m2 Glucose Calcium Magnesium Total Bilirubin AST ALT Alkaline Phosphatase Troponin I Total Protein Albumin Urine Color Yellow Urine Clarity Cloudy Urine pH 7.0 Ur Specific [place] 1.025 Urine Protein >=300 H Urine Ketones Negative Urine Blood Large H Urine Nitrite Negative Urine Bilirubin Negative Urine Urobilinogen 0.2 Ur Leukocyte Esterase Negative Urine RBC >50 H Urine WBC Negative Ur Epithelial Cells Negative Urine Crystals Negative Urine Bacteria Negative Urine Casts Negative Urine Mucus Negative Urine Other Negative Ur Culture Indicated? No Urine Glucose 100 Last Vital Signs Temp 37.1 C 03/10/19 14:40 Pulse 93 H 03/10/19 14:40 Resp 20 03/10/19 14:40 BP 127/87 03/10/19 14:40 Pulse Ox 93 L 03/10/19 14:40
[2019-03-10] MEDS: Aspirin 81 MG CHEW 162 MG PO (18:41)
[2019-03-10] MEDS: levETIRAcetam 500 MG TAB PO (21:11)
[2019-03-10] MEDS: Atorvastatin 40 MG TAB 80 MG PO (21:11)
[2019-03-11] VITALS (7 sets, daily range): BP systolic 155–191; BP diastolic 69–93; PULSE 72–82; RESP 18; TEMP 36.6–37; O2SAT 92–96
[2019-03-11] MEDS: Normal Saline 1,000 ML 80 ML IV (04:40)
[2019-03-11 07:19] LABS: Troponin I 0.06 ng/mL (0.00-0.06)
[2019-03-11] MEDS: Budesonide/Formoterol 160/4.5 6 GM 60 PUFF INH IH ×2 (08:04→20:36)
[2019-03-11] MEDS: Tiotropium Bromide-Respimat 10 PUFF INH 2 PUFF IH (08:04)
[2019-03-11] MEDS: Omeprazole 20 MG CAPCR 40 MG PO ×2 (09:20→20:34)
[2019-03-11] MEDS: Rivaroxaban 15 MG TABLET PO (09:20)
[2019-03-11] MEDS: Sertraline 50 MG TAB 100 MG PO (09:20)
[2019-03-11] MEDS: Tamsulosin 0.4 MG CAPCR 0.8 MG PO (09:20)
[2019-03-11] MEDS: Finasteride 5 MG TAB PO (09:20)
[2019-03-11] MEDS: dilTIAZem CD 120 MG CAPCR 240 MG PO (09:20)
[2019-03-11] MEDS: levETIRAcetam 500 MG TAB PO ×2 (09:21→20:34)
[2019-03-11] MEDS: Aspirin 81 MG CHEW PO (09:21)
[2019-03-11 10:48] LABS: Abs Immature Grans 0.01 k/cumm (0.0-0.09); Absolute Basophil Count 0.04 k/cumm (0.0-0.2); Absolute Eosinophil Count 0.65 k/cumm (0.0-0.7); Absolute Lymphocyte Count 1.62 k/cumm (1.2-3.4); Absolute Neutrophil Count 6.52 k/cumm (1.2-6.7); Basophils % 0.4; Eosinophils % 6.8; HCT 36.6 % (40.0-50.0); HGB 11.9 g/dL (13.5-17.5); Immature Grans % 0.1; Mean Corp. HGB Concentration 32.5 g/dL (32.0-36.0); Mean Corpuscular Hemoglobin 29.1 pg (27.0-33.0); Mean Corpuscular Volume 89.5 fL (80-95); Mean Platelet Volume 10.9 fL (8.0-11.0); Monocytes % 7.3; Neutrophils % 68.4; Platelet Count 260 x1000/uL (130-400); RBC 4.09 m/cumm (4.50-6.00); RBC Distribution Width 14.7 % (11.8-14.1); White Blood Cell Count 9.54 k/cumm (4.4-10.8)
[2019-03-11 10:55] LABS: Anion Gap 6.3 mmol/L (3-11); BUN 20 mg/dL (7-18); CO2 28.7 mmol/L (21.0-32.0); CREATININE 1.73 mg/dL (0.70-1.30); Calcium 8.6 mg/dL (8.5-10.1); Chloride 108 mmol/L (98-107); Glucose 132 mg/dL (70-100); Magnesium 1.7 mg/dL (1.8-2.4); Potassium 3.4 mmol/L (3.5-5.1); Sodium 143 mmol/L (136-145)
[2019-03-11] MEDS: Insulin Aspart 300 UNITS/3 ML PEN SC ×2 (12:07→16:49)
--- NOTE | 2019-03-11 16:19 | PGE_ITS ---
Date of Service Date of service: 03/11/19 Time of Service: 16:19 Assessment and Plan Assessment and plan (1) Hypertensive emergency: Status: Acute Assessment and plan: D/c IVF. Likely the reason for elevated troponin in conjunction for LUISA on CKD. Doubt true ACS. I have added metoprolol both PO and prn IV. Continue to monitor on tele. (2) Nausea: Status: Resolved Assessment and plan: Possible component of hypertensive emergency. Continue to treat BP's. 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 Continue xarelto, cardizem. Monitor HR with addition of metoprolol. (7) Acute kidney injury superimposed on chronic kidney disease: Status: Acute Assessment and plan: Improved. D/c IVF. (8) Discharge planning issues: Status: Acute Assessment and plan: Full code (9) DVT prophylaxis: Status: Acute Assessment and plan: On therapeutic xarelto. Subjective Subjective Interval history since last seen: Mr Panchal states he feels better now. He describes what happened last night as spasms all over and nausea. But he does not feel like that now. Denies dizziness, chest pain, shortness of breath, abdominal pain, nausea. He has been hypertensive with SBPs up to 190's today. Retaining urine, requiring a straight catheter (500 cc). States he self- catheterizes at home at least 3 times per day. Exam Narrative Exam Narrative: General: very pleasant elderly female, sitting in a chair, A&Ox3, in good spirits HEENT: EOMI, MMM Heart: RRR, no m/r/g Lungs: CTAB GI: abdomen is soft, nontender, nondistended Extremities: +1 BLE edema, no c/c. Objective Objective Clinical Data: Abnormal lab results 03/10/19 03/10/19 03/11/19 Range/Units 16:57 19:33 06:30 RBC (4.50-6.00) m/cumm Hgb (13.5-17.5) g/dL Hct (40.0-50.0) % RDW (11.8-14.1) % Potassium 3.4 L (3.5-5.1) mmol/L Chloride 108 H (98-107) mmol/L BUN 20 H (7-18) mg/dL Creatinine 1.73 H (0.70-1.30) mg/dL Glucose 132 H D (70-100) mg/dL Magnesium 1.7 L (1.8-2.4) mg/dL Troponin I 0.10 H* (0.00-0.06) ng/mL Urine Protein >=300 H (Negative) mg/dL Urine Blood Large H (Negative) Urine RBC >50 H (0-2) HPF 03/11/19 Range/Units 06:30 RBC 4.09 L (4.50-6.00) m/cumm Hgb 11.9 L (13.5-17.5) g/dL Hct 36.6 L (40.0-50.0) % RDW 14.7 H (11.8-14.1) % Potassium (3.5-5.1) mmol/L Chloride (98-107) mmol/L BUN (7-18) mg/dL Creatinine (0.70-1.30) mg/dL Glucose (70-100) mg/dL Magnesium (1.8-2.4) mg/dL Troponin I (0.00-0.06) ng/mL Urine Protein (Negative) mg/dL Urine Blood (Negative) Urine RBC (0-2) HPF Vital Signs Temperature 36.6 C 03/11/19 15:00 Temperature Source Tympanic 03/11/19 15:00 Pulse 76 03/11/19 15:00 Pulse Rhythm Regular 03/11/19 15:58 Respiratory Rate 18 03/11/19 15:00 Respiratory Effort Non-Labored 03/11/19 15:58 Respiratory Depth Normal 03/11/19 15:58 Respiratory Pattern Normal 03/11/19 15:58 Blood Pressure 181/88 H 03/11/19 15:00 Blood Pressure Position Sitting 03/10/19 14:40 Pulse Oximetry 96 03/11/19 15:00 Oxygen Delivery Method Room Air 03/11/19 15:00 Oxygen Flow Rate 0 03/11/19 15:00 Pain Level 0 03/11/19 15:00 Intake & Output 03/10/19 03/11/19 03/11/19 23:59 11:59 23:59 Intake Total 980 / 980 Output Total 350 / 350 1509 / 1509 Balance -350 / -350 -529 / -529 Weight 107.3 kg Intake: Oral 980 / 980 Output: Urine 350 / 350 1080 / 1080 Post Void Residual 429 / 429 Other: Urine Color Dark Kirstin Yellow Urine Appearance Clear Cloudy Cloudy Comment concentrated yellow strong odor urine obtained. Laboratory Results WBC 9.54 k/cumm (4.4-10.8) 03/11/19 06:30 RBC 4.09 m/cumm (4.50-6.00) L 03/11/19 06:30 Hgb 11.9 g/dL (13.5-17.5) L 03/11/19 06:30 Hct 36.6 % (40.0-50.0) L 03/11/19 06:30 MCV 89.5 fL (80-95) 03/11/19 06:30 MCH 29.1 pg (27.0-33.0) 03/11/19 06:30 MCHC 32.5 g/dL (32.0-36.0) 03/11/19 06:30 RDW 14.7 % (11.8-14.1) H 03/11/19 06:30 Plt Count 260 x1000/uL (130-400) 03/11/19 06:30 MPV 10.9 fL (8.0-11.0) 03/11/19 06:30 Immature Gran % 0.1 03/11/19 06:30 Neutrophils % 68.4 03/11/19 06:30 Lymphocytes % 17.0 03/11/19 06:30 Monocytes % 7.3 03/11/19 06:30 Eosinophils % 6.8 03/11/19 06:30 Basophils % 0.4 03/11/19 06:30 Absolute Neutrophils 6.52 k/cumm (1.2-6.7) 03/11/19 06:30 Absolute Lymphocytes 1.62 k/cumm (1.2-3.4) 03/11/19 06:30 Absolute Monocytes 0.70 k/cumm (0.11-0.7) 03/11/19 06:30 Absolute Eosinophils 0.65 k/cumm (0.0-0.7) 03/11/19 06:30 Absolute Basophils 0.04 k/cumm (0.0-0.2) 03/11/19 06:30 PT 10.4 sec (9.3-11.0) 03/10/19 15:00 INR 1.0 (0.9-1.1) 03/10/19 15:00 Sodium 143 mmol/L (136-145) 03/11/19 06:30 Potassium 3.4 mmol/L (3.5-5.1) L 03/11/19 06:30 Chloride 108 mmol/L (98-107) H 03/11/19 06:30 Carbon Dioxide 28.7 mmol/L (21.0-32.0) 03/11/19 06:30 Anion Gap 6.3 mmol/L (3-11) 03/11/19 06:30 BUN 20 mg/dL (7-18) H 03/11/19 06:30 Creatinine 1.73 mg/dL (0.70-1.30) H 03/11/19 06:30 Estimated GFR/1.73 m2 38.80 (mL/min/1.73m2) 03/11/19 06:30 Glucose 132 mg/dL (70-100) H D 03/11/19 06:30 Calcium 8.6 mg/dL (8.5-10.1) 03/11/19 06:30 Magnesium 1.7 mg/dL (1.8-2.4) L 03/11/19 06:30 Total Bilirubin 0.4 mg/dL (0.2-1.0) 03/10/19 15:00 AST 16 U/L (15-37) 03/10/19 15:00 ALT 20 U/L (16-63) 03/10/19 15:00 Alkaline Phosphatase 119 U/L (46-116) H 03/10/19 15:00 Troponin I 0.06 ng/mL (0.00-0.06) 03/11/19 06:30 Total Protein 6.6 g/dL (6.4-8.2) 03/10/19 15:00 Albumin 3.0 g/dL (3.4-5.0) L 03/10/19 15:00 Urine Color Yellow (Yellow) 03/10/19 16:57 Urine Clarity Cloudy (Clear) 03/10/19 16:57 Urine pH 7.0 (5-8) 03/10/19 16:57 Ur Specific [place] 1.025 (1.005-1.025) 03/10/19 16:57 Urine Protein >=300 mg/dL (Negative) H 03/10/19 16:57 Urine Ketones Negative mg/dL (Negative) 03/10/19 16:57 Urine Blood Large (Negative) H 03/10/19 16:57 Urine Nitrite Negative (Negative) 03/10/19 16:57 Urine Bilirubin Negative (Negative) 03/10/19 16:57 Urine Urobilinogen 0.2 EU/dL (Up TO 0.2) 03/10/19 16:57 Ur Leukocyte Esterase Negative (Negative) 03/10/19 16:57 Urine RBC >50 HPF (0-2) H 03/10/19 16:57 Urine WBC Negative HPF (0-5) 03/10/19 16:57 Ur Epithelial Cells Negative HPF (Negative) 03/10/19 16:57 Urine Crystals Negative HPF (Negative) 03/10/19 16:57 Urine Bacteria Negative HPF (Negative) 03/10/19 16:57 Urine Casts Negative LPF (Negative) 03/10/19 16:57 Urine Mucus Negative (Negative) 03/10/19 16:57 Urine Other Negative (Negative) 03/10/19 16:57 Ur Culture Indicated? No 03/10/19 16:57 Urine Glucose 100 mg/dL (Negative) 03/10/19 16:57
[2019-03-11] MEDS: Metoprolol 12.5 MG TAB PO ×2 (16:34→20:34)
[2019-03-11] MEDS: MAGNESIUM SULFATE 2 GM/50 ML BAG IVPB (16:34)
[2019-03-11] MEDS: Potassium Chloride 20 MEQ TABCR 40 MEQ PO (16:34)
--- NOTE | 2019-03-11 16:58 | PDOC.CMIN ---
- If Service Date Differs Date of service: 03/11/19 Time of Service: 16:58 Care Management Initial Assess REASON FOR HOSPITALIZATION:: hypertensive emergency PAST MEDICAL HISTORY/PAST SURGICAL HISTORY:: past medical history: Cerebral vascular disease (CVA). COPD. Diabetes. GERD. HTN. Hyperlipidemia. Seizure. Urinary retention. Surgical history: s/p penile implant. s/p prostatectomy PREVIOUS FUNCTIONAL STATUS/SOCIAL/FAMILY SUPPORTS:: Ed lives in a single family split level style home in [place] with his son Hector. He is retired and is independent with all ADLs and care. 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 CURRENT FUNCTIONAL STATUS:: Ed was sitting up in a chair when CM mety with him. He was pleasant, cooperative and engaged. He stated that he is feeling better than when he first came in. He also stated that he has been unable to urinate on his own and was catheterized again this afternoon.( He had been straight cathed at 4 am for 400cc after not voiding.) ADVANCE DIRECTIVES:: None on file Has patient been provided with information about the portal?: Yes Did the patient sign up for the portal?: No CODE STATUS:: Full Code INSURANCE COVERAGE / FINANCIAL ISSUES:: Medicare CURRENT HOME/COMMUNITY SERVICES/EQUIPMENT:: Uses a walker PRIMARY CARE PHYSICIAN:: Isak Magana MD POTENTIAL DISCHARGE NEEDS:: Follow up with PCP and discharge plan of care PATIENT/FAMILY EDUCATION NEEDS:: Discharge plan, limitations, follow up plan, Ask Me Three. ANTICIPATED BARRIERS TO DISCHARGE:: none identified TRANSPORTATION:: via private vehicle with son when ready PLAN:: Ed will likely discharge home when ready. He may benefit from new nursing and possibly PT. He will follow up with his PCP and discharge plan of care.CM will continue to support patient, family and discharge planning needs.
[2019-03-11] MEDS: Atorvastatin 40 MG TAB 80 MG PO (20:37)
[2019-03-11 20:52] LABS: Bilirubin Negative (Negative); Blood Large (Negative); Clarity Cloudy (Clear); Glucose Negative (Negative); Ketones Negative (Negative); Leukocyte Esterase Negative (Negative); Nitrite Negative (Negative); Specific Gravity >= 1.030 (1.005-1.025); Urobilinogen 0.2 EU/dL (Up TO 0.2); pH 5.5 (5-8)
[2019-03-11 20:59] LABS: Bacteria Many HPF (Negative); C & S Indicated? Yes; Casts Negative LPF (Negative); Crystals Negative HPF (Negative); Epithelial Cells Negative HPF (Negative); Mucus Negative (Negative); RBC Negative HPF (0-2); WBC >50 HPF (0-5)
[2019-03-12] VITALS (8 sets, daily range): BP systolic 109–175; BP diastolic 66–74; PULSE 68–77; RESP 17–20; TEMP 36.1–37; O2SAT 93–95
[2019-03-12 06:43] LABS: Abs Immature Grans 0.01 k/cumm (0.0-0.09); Absolute Basophil Count 0.03 k/cumm (0.0-0.2); Absolute Eosinophil Count 0.52 k/cumm (0.0-0.7); Absolute Lymphocyte Count 1.16 k/cumm (1.2-3.4); Absolute Monocyte Count 0.48 k/cumm (0.11-0.7); Absolute Neutrophil Count 5.36 k/cumm (1.2-6.7); Basophils % 0.4; Eosinophils % 6.9; HCT 35.1 % (40.0-50.0); HGB 11.5 g/dL (13.5-17.5); Immature Grans % 0.1; Lymphocytes % 15.3; Mean Corp. HGB Concentration 32.8 g/dL (32.0-36.0); Mean Corpuscular Hemoglobin 28.9 pg (27.0-33.0); Mean Corpuscular Volume 88.2 fL (80-95); Mean Platelet Volume 10.4 fL (8.0-11.0); Monocytes % 6.3; Platelet Count 248 x1000/uL (130-400); RBC 3.98 m/cumm (4.50-6.00); RBC Distribution Width 14.1 % (11.8-14.1); White Blood Cell Count 7.56 k/cumm (4.4-10.8)
[2019-03-12 06:57] LABS: Anion Gap 6.6 mmol/L (3-11); BUN 19 mg/dL (7-18); CO2 28.4 mmol/L (21.0-32.0); Calcium 8.4 mg/dL (8.5-10.1); Chloride 105 mmol/L (98-107); Estimated GFR 37.07 (mL/min/1.73m2); Glucose 198 mg/dL (70-100); Magnesium 1.9 mg/dL (1.8-2.4); Potassium 4.1 mmol/L (3.5-5.1); Sodium 140 mmol/L (136-145)
[2019-03-12] MEDS: Ondansetron 4 MG/2 ML VIAL IVP (08:09)
[2019-03-12] MEDS: Normal Saline Flush 10 ML SYR IVP ×2 (08:09→20:54)
[2019-03-12] MEDS: Insulin Aspart 300 UNITS/3 ML PEN SC ×3 (08:18→17:16)
[2019-03-12 08:37] LABS: Troponin I < 0.05 ng/mL (0.00-0.06)
[2019-03-12] MEDS: Rivaroxaban 15 MG TABLET PO (09:34)
[2019-03-12] MEDS: Finasteride 5 MG TAB PO (09:34)
[2019-03-12] MEDS: Sertraline 50 MG TAB 100 MG PO (09:35)
[2019-03-12] MEDS: Metoprolol 12.5 MG TAB PO ×2 (09:35→20:54)
[2019-03-12] MEDS: levETIRAcetam 500 MG TAB PO ×2 (09:35→20:54)
[2019-03-12] MEDS: Tamsulosin 0.4 MG CAPCR 0.8 MG PO (09:35)
[2019-03-12] MEDS: Aspirin 81 MG CHEW PO (09:35)
[2019-03-12] MEDS: dilTIAZem CD 120 MG CAPCR 240 MG PO (09:35)
[2019-03-12] MEDS: Omeprazole 20 MG CAPCR 40 MG PO (09:35)
[2019-03-12] MEDS: Budesonide/Formoterol 160/4.5 6 GM 60 PUFF INH IH ×2 (10:24→21:02)
[2019-03-12] MEDS: Tiotropium Bromide-Respimat 10 PUFF INH 2 PUFF IH (10:24)
[2019-03-12 12:23] LABS: Troponin I < 0.05 ng/mL (0.00-0.06)
--- NOTE | 2019-03-12 15:13 | PGE_ITS ---
Date of Service Date of service: 03/12/19 Time of Service: 15:13 Assessment and Plan Assessment and plan (1) Hypertensive emergency: Status: Acute Assessment and plan: BP's still not great - resume losartan that the patient was on as outpatient. Continue to hold HCTZ. Hypertensive urgency/emergency is the likely reason for elevated troponin in conjunction for LUISA on CKD. Doubt true ACS. Continue PO metoprolol and prn IV. Continue to monitor on tele. (2) Nausea: Status: Resolved Assessment and plan: Possible component of hypertensive emergency. On PPI, but reflux is a possibility. Continue to treat BP's. (3) Seizure disorder: Status: Chronic Assessment and plan: No change to home keppra. Episodes of lethargy unlikely to be related to this, but if recurs, consider EEG. (4) Urinary retention: Status: Chronic Assessment and plan: Continue intermittent caths (5) Diabetes type 2, controlled: Status: Chronic Assessment and plan: Continue current regimen - I changed the diet to carb consistent Qualifiers: Diabetes mellitus group home insulin use: with terminal manager use Diabetes mellitus complication status: with unspecified complications Qualified Code(s): E11.8 - Type 2 diabetes mellitus with unspecified complications; Z79.4 - long term care administrator (current) use of insulin (6) Paroxysmal atrial fibrillation: Status: Chronic Assessment and plan: Appears to be in NSR at this time. Continue cardizem. we have reviewed patient's medications with his pharmacy - and according to his pharmacy, the patient is no longer on asa or xarelto - both d/c'ed. Monitor HR with addition of metoprolol. (7) Acute kidney injury superimposed on chronic kidney disease: Status: Acute Assessment and plan: Improved. Resume ARB. Hold HCTZ. (8) Discharge planning issues: Status: Acute Assessment and plan: Full code (9) DVT prophylaxis: Status: Acute Assessment and plan: D/c xarelto as no longer on it as outpatient. Add sc heparin, TEDs, SCDs Subjective Subjective Interval history since last seen: Mr Panchal states that he feels fine now, but before lunch felt dizzy. This morning he had an episode of nausea accompanied by diaphoresis, and was more lethargic than his baseline. He was arousable, however, and he stated he had not slept. He was up and back to his mental baseline by breakfast. Exam Narrative Exam Narrative: General: very pleasant elderly female, in bed, easily arousable, does appear tired, A&OX3 HEENT: EOMI, MMM Heart: RRR, no m/r/g Lungs: CTAB GI: abdomen is soft, nontender, nondistended Extremities: trace edema, no c/c. Objective Objective Clinical Data: Abnormal lab results 03/11/19 03/12/19 03/12/19 Range/Units 18:23 06:14 06:14 RBC 3.98 L (4.50-6.00) m/cumm Hgb 11.5 L (13.5-17.5) g/dL Hct 35.1 L (40.0-50.0) % Absolute Lymphocytes 1.16 L (1.2-3.4) k/cumm BUN 19 H (7-18) mg/dL Creatinine 1.80 H (0.70-1.30) mg/dL Glucose 198 H (70-100) mg/dL Calcium 8.4 L (8.5-10.1) mg/dL Ur Specific [place] >= 1.030 H (1.005-1.025) Urine Protein >=300 H (Negative) mg/dL Urine Blood Large H (Negative) Urine WBC >50 H (0-5) HPF Vital Signs Temperature 36.9 C 03/12/19 07:30 Temperature Source Tympanic 03/12/19 07:30 Pulse 68 03/12/19 07:54 Pulse Rhythm Regular 03/12/19 03:10 Respiratory Rate 20 03/12/19 07:30 Respiratory Effort 03/12/19 03:10 Respiratory Depth Normal 03/12/19 03:10 Respiratory Pattern Normal 03/12/19 03:10 Blood Pressure 175/69 H 03/12/19 07:30 Blood Pressure Position Sitting 03/10/19 14:40 Pulse Oximetry 95 03/12/19 07:30 Oxygen Delivery Method Room Air 03/12/19 07:30 Oxygen Flow Rate 0 03/12/19 07:30 Pain Level 0 03/12/19 07:30 Intake & Output 03/11/19 03/12/19 03/12/19 23:59 11:59 23:59 Intake Total 926.667 / 1906.667 950 / 950 Output Total 484 / 1993 600 / 600 Balance 442.667 / -86.333 350 / 350 Intake: IV 926.667 / 926.667 Oral 950 / 950 Output: Urine 440 / 1520 600 / 600 Post Void Residual 44 / 473 Other: Urine Color Light Kirstin Yellow Urine Appearance Cloudy Cloudy Comment voided in toilet Voiding Methods Diaper Incontinent Laboratory Results WBC 7.56 k/cumm (4.4-10.8) 03/12/19 06:14 RBC 3.98 m/cumm (4.50-6.00) L 03/12/19 06:14 Hgb 11.5 g/dL (13.5-17.5) L 03/12/19 06:14 Hct 35.1 % (40.0-50.0) L 03/12/19 06:14 MCV 88.2 fL (80-95) 03/12/19 06:14 MCH 28.9 pg (27.0-33.0) 03/12/19 06:14 MCHC 32.8 g/dL (32.0-36.0) 03/12/19 06:14 RDW 14.1 % (11.8-14.1) 03/12/19 06:14 Plt Count 248 x1000/uL (130-400) 03/12/19 06:14 MPV 10.4 fL (8.0-11.0) 03/12/19 06:14 Immature Gran % 0.1 03/12/19 06:14 Neutrophils % 71.0 03/12/19 06:14 Lymphocytes % 15.3 03/12/19 06:14 Monocytes % 6.3 03/12/19 06:14 Eosinophils % 6.9 03/12/19 06:14 Basophils % 0.4 03/12/19 06:14 Absolute Neutrophils 5.36 k/cumm (1.2-6.7) 03/12/19 06:14 Absolute Lymphocytes 1.16 k/cumm (1.2-3.4) L 03/12/19 06:14 Absolute Monocytes 0.48 k/cumm (0.11-0.7) 03/12/19 06:14 Absolute Eosinophils 0.52 k/cumm (0.0-0.7) 03/12/19 06:14 Absolute Basophils 0.03 k/cumm (0.0-0.2) 03/12/19 06:14 PT 10.4 sec (9.3-11.0) 03/10/19 15:00 INR 1.0 (0.9-1.1) 03/10/19 15:00 Sodium 140 mmol/L (136-145) 03/12/19 06:14 Potassium 4.1 mmol/L (3.5-5.1) D 03/12/19 06:14 Chloride 105 mmol/L (98-107) 03/12/19 06:14 Carbon Dioxide 28.4 mmol/L (21.0-32.0) 03/12/19 06:14 Anion Gap 6.6 mmol/L (3-11) 03/12/19 06:14 BUN 19 mg/dL (7-18) H 03/12/19 06:14 Creatinine 1.80 mg/dL (0.70-1.30) H 03/12/19 06:14 Estimated GFR/1.73 m2 37.07 (mL/min/1.73m2) 03/12/19 06:14 Glucose 198 mg/dL (70-100) H 03/12/19 06:14 Calcium 8.4 mg/dL (8.5-10.1) L 03/12/19 06:14 Magnesium 1.9 mg/dL (1.8-2.4) 03/12/19 06:14 Total Bilirubin 0.4 mg/dL (0.2-1.0) 03/10/19 15:00 AST 16 U/L (15-37) 03/10/19 15:00 ALT 20 U/L (16-63) 03/10/19 15:00 Alkaline Phosphatase 119 U/L (46-116) H 03/10/19 15:00 Troponin I < 0.05 ng/mL (0.00-0.06) 03/12/19 11:55 Total Protein 6.6 g/dL (6.4-8.2) 03/10/19 15:00 Albumin 3.0 g/dL (3.4-5.0) L 03/10/19 15:00 Urine Color Yellow (Yellow) 03/11/19 18:23 Urine Clarity Cloudy (Clear) 03/11/19 18:23 Urine pH 5.5 (5-8) 03/11/19 18:23 Ur Specific [place] >= 1.030 (1.005-1.025) H 03/11/19 18:23 Urine Protein >=300 mg/dL (Negative) H 03/11/19 18:23 Urine Ketones Negative mg/dL (Negative) 03/11/19 18:23 Urine Blood Large (Negative) H 03/11/19 18:23 Urine Nitrite Negative (Negative) 03/11/19 18:23 Urine Bilirubin Negative (Negative) 03/11/19 18:23 Urine Urobilinogen 0.2 EU/dL (Up TO 0.2) 03/11/19 18:23 Ur Leukocyte Esterase Negative (Negative) 03/11/19 18:23 Urine RBC Negative HPF (0-2) 03/11/19 18:23 Urine WBC >50 HPF (0-5) H 03/11/19 18:23 Ur Epithelial Cells Negative HPF (Negative) 03/11/19 18:23 Urine Crystals Negative HPF (Negative) 03/11/19 18:23 Urine Bacteria Many HPF (Negative) 03/11/19 18:23 Urine Casts Negative LPF (Negative) 03/11/19 18:23 Urine Mucus Negative (Negative) 03/11/19 18:23 Urine Other Negative (Negative) 03/10/19 16:57 Ur Culture Indicated? Yes 03/11/19 18:23 Urine Glucose Negative mg/dL (Negative) 03/11/19 18:23
[2019-03-12] MEDS: Losartan 50 MG TAB PO (15:57)
--- NOTE | 2019-03-12 16:18 | PDOC.CMPRO ---
- If Service Date Differs Date of service: 03/12/19 Time of Service: 16:18 Care Management Progress Note S/O: Doroteo spent much of the day napping. Several attempts were made to meet with him before he woke up later in the day. He stated he is feeling OK but is tired so the conversation was brief. He stated that he did not get much sleep last night. A; Doroteo is a 73 year old man admitted on 03/11/19 with hypertensive emergency P: Ed will likely discharge home when ready. He may benefit from new HH nursing and possibly PT. He will follow up with his PCP and discharge plan of care.CM will continue to support patient, family and discharge planning needs.
[2019-03-12] MEDS: Atorvastatin 40 MG TAB 80 MG PO (20:54)
[2019-03-13] VITALS (12 sets, daily range): BP systolic 103–171; BP diastolic 51–79; PULSE 62–77; RESP 18–21; TEMP 36.2–37.1; O2SAT 91–96
[2019-03-13 07:40] LABS: Abs Immature Grans 0.01 k/cumm (0.0-0.09); Absolute Basophil Count 0.02 k/cumm (0.0-0.2); Absolute Eosinophil Count 0.86 k/cumm (0.0-0.7); Absolute Lymphocyte Count 1.24 k/cumm (1.2-3.4); Absolute Monocyte Count 0.48 k/cumm (0.11-0.7); Absolute Neutrophil Count 5.07 k/cumm (1.2-6.7); Basophils % 0.3; Eosinophils % 11.2; HCT 37.1 % (40.0-50.0); HGB 12.1 g/dL (13.5-17.5); Immature Grans % 0.1; Lymphocytes % 16.1; Mean Corp. HGB Concentration 32.6 g/dL (32.0-36.0); Mean Corpuscular Hemoglobin 28.9 pg (27.0-33.0); Mean Corpuscular Volume 88.5 fL (80-95); Mean Platelet Volume 10.6 fL (8.0-11.0); Monocytes % 6.3; Platelet Count 277 x1000/uL (130-400); RBC 4.19 m/cumm (4.50-6.00); White Blood Cell Count 7.68 k/cumm (4.4-10.8)
[2019-03-13 07:51] LABS: Anion Gap 6.6 mmol/L (3-11); BUN 23 mg/dL (7-18); CO2 30.4 mmol/L (21.0-32.0); CREATININE 2.03 mg/dL (0.70-1.30); Calcium 8.8 mg/dL (8.5-10.1); Chloride 104 mmol/L (98-107); Estimated GFR 32.26 (mL/min/1.73m2); Glucose 255 mg/dL (70-100); Magnesium 1.9 mg/dL (1.8-2.4); Potassium 4.2 mmol/L (3.5-5.1); Sodium 141 mmol/L (136-145)
[2019-03-13] MEDS: Tiotropium Bromide-Respimat 10 PUFF INH 2 PUFF IH (07:54)
[2019-03-13] MEDS: Budesonide/Formoterol 160/4.5 6 GM 60 PUFF INH IH ×2 (07:55→20:46)
[2019-03-13] MEDS: Insulin Aspart 300 UNITS/3 ML PEN SC ×4 (08:27→22:42)
[2019-03-13] MEDS: Sertraline 50 MG TAB 100 MG PO (08:28)
[2019-03-13] MEDS: Finasteride 5 MG TAB PO (08:28)
[2019-03-13] MEDS: Metoprolol 12.5 MG TAB PO ×2 (08:28→20:46)
[2019-03-13] MEDS: levETIRAcetam 500 MG TAB PO ×2 (08:28→20:46)
[2019-03-13] MEDS: Heparin 5,000 UNITS/ML VIAL 5000 UNITS SC ×2 (08:28→20:46)
[2019-03-13] MEDS: Omeprazole 20 MG CAPCR 40 MG PO (08:28)
[2019-03-13] MEDS: Tamsulosin 0.4 MG CAPCR PO (08:28)
[2019-03-13] MEDS: Losartan 25 MG TAB 50 MG PO (08:28)
[2019-03-13] MEDS: dilTIAZem CD 120 MG CAPCR 240 MG PO (08:29)
--- NOTE | 2019-03-13 11:57 | PHARADMIT ---
Addendum entered by Cristina Holder 03/14/19 16:50: Pharmacy Note Subjective MD states pt has vague symptoms and tremor, if speech garbled today, may order MRI Objective BP 147/68, afebrile, K+ 4.3, Mag 1.7, SCr down 1.83, BG 237 Assessment Lantus increased Mag 2gram IV x1 IVF's dc'd, no other med changes Plan possible rehab instead of home with services Original Note: Admission Pharmacy Clinical Review NAUSEA, ( Hx of SEIZURE DISORDER) Code Status Full Code Current Weight Wgt- 107.3 kg Renally Cleared and Narrow Therapeutic Index Meds CrCl~ 32 mL/min Meds-OK QTc Value / Action Taken QTc-455 NA BP Control, Fever BP-171/69 Tmax- 37C Electrolytes reviewed Na- 141 K+4.2 Mag-1.9 DVT Prophylaxis Heparin-SC (was on Xarelto) Opiate Usage / Scheduled Bowel Regimen Ordered No No Plt/SCr for Heparin / Enoxaparin Plts- 277 SCr-2.03 (up) INR for Warfarin inr-1.0 H/H stable, WBC/Bands H&H- 12.1/37.1 WBC- 7.68 Antibiotic appropriateness none Cultures and Sensitivities Urine-Gram Neg Mendez/Klebsiella Surgical ABX d/c within 24 hr NA DM control / Insulin Dosing BG-255 Aspart, Heart Failure (Check EF%) (SMITH's, B-Block, Diuretics) Diltiazem-CD, Losartan, Lopressor IV to PO Switch No Home Meds Reviewed Yes Home Meds Not Ordered [place], Juvenal, ERICA, M-Steve, Comments
--- NOTE | 2019-03-13 14:09 | PDOC.CMPRO ---
- If Service Date Differs Date of service: 03/13/19 Time of Service: 14:09 Care Management Progress Note S/O:Ed was sitting up in bed when CM met with him. He was dozing, but woke right up when his name was called. Ed shared that he has been tired for the past few weeks at home, napping frequently. Ed denied nausea or vomiting today and says he is in no pain. His BUN and Creatinine continue to climb slowly. A; Doroteo is a 73 year old man admitted on 03/11/19 with hypertensive emergency P: Ed will likely discharge home when ready. He may benefit from new nursing and possibly PT. He will follow up with his PCP and discharge plan of care.CM will continue to support patient, family and discharge planning needs.
--- NOTE | 2019-03-13 14:40 | PGE_ITS ---
Date of Service Date of service: 03/13/19 Time of Service: 14:40 Assessment and Plan Assessment and plan (1) Hypertensive emergency: Status: Resolved Assessment and plan: Now having orthostatic hypotension - will d/c cozaar, give gentle IVF, and monitor. (2) Nausea: Status: Resolved Assessment and plan: Possible component of hypertensive emergency at the time. Continue PPI as reflux could also have contributed. (3) Seizure disorder: Status: Chronic Assessment and plan: Given the tongue bite, I think it is important to ensure he is not having break-through seizures. EEG obtained. Consult neurology. Continue keppra at current dose for now. (4) Urinary retention: Status: Chronic Assessment and plan: Continue intermittent caths on outpatient schedule. No evidence of UTI. 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 Continue cardizem. The patient's outpatient xarelto/asa were stopped as outpatient - he is no longer on them here. Monitor HR with addition of metoprolol. (7) Acute kidney injury superimposed on chronic kidney disease: Status: Acute Assessment and plan: Worse today. May be related to his BP which is too well controlled today. D/c ARB. Monitor on gentle IVF. Hold HCTZ. (8) Discharge planning issues: Status: Acute Assessment and plan: Full code (9) DVT prophylaxis: Status: Acute Assessment and plan: SC heparin, TEDs, SCDs Subjective Subjective Interval history since last seen: Mr Panchal was found to a have what looks like a tongue bite on the right side of his tongue - he is not sure since when he has had it. Complains of dizziness with change of position today (sitting to standing). Denies chest pain, shortness of breath, nausea, vomiting. Orthostatic. Exam Narrative Exam Narrative: General: very pleasant elderly male, sitting up at the edge of the bed, A&Ox3 HEENT: EOMI, MMM; what appears to be a small tongue laceration on the right side of the tongue - does look like a tongue bite. Heart: RRR, no m/r/g Lungs: coarse breath sounds B GI: abdomen is soft, nontender, nondistended Extremities: wearing TEDs, no obvious edema BLEs. Objective Objective Clinical Data: Abnormal lab results 03/13/19 03/13/19 Range/Units 07:05 07:05 RBC 4.19 L (4.50-6.00) m/cumm Hgb 12.1 L (13.5-17.5) g/dL Hct 37.1 L (40.0-50.0) % Absolute Eosinophils 0.86 H (0.0-0.7) k/cumm BUN 23 H (7-18) mg/dL Creatinine 2.03 H (0.70-1.30) mg/dL Glucose 255 H (70-100) mg/dL Vital Signs Temperature 37.1 C 03/13/19 13:25 Temperature Source Tympanic 03/13/19 13:25 Pulse 62 03/13/19 13:25 Pulse Rhythm Regular 03/13/19 09:04 Respiratory Rate 20 03/13/19 13:25 Respiratory Effort 03/13/19 09:04 Respiratory Depth Normal 03/13/19 09:04 Respiratory Pattern Normal 03/13/19 09:04 Blood Pressure 114/65 03/13/19 13:25 Blood Pressure Position Sitting 03/10/19 14:40 Pulse Oximetry 96 03/13/19 13:25 Oxygen Delivery Method Room Air 03/13/19 13:25 Oxygen Flow Rate 0 03/13/19 13:25 Pain Level 0 03/13/19 13:25 Comment 03/13/19 13:25 Intake & Output 03/12/19 03/13/19 03/13/19 23:59 11:59 23:59 Intake Total 250 / 490 240 / 490 Output Total 1864 / 2464 400 / 700 300 / 700 Balance -1854 / -1494 -150 / -210 -60 / -210 Intake: IV Oral 250 / 490 240 / 490 Output: Urine 1370 / 1970 400 / 700 300 / 700 Post Void Residual 494 / 494 Other: Urine Color Yellow Yellow Dark Kirstin Urine Appearance Purulent Purulent Clear Comment Starts draining with clear, yellow urine, then urine becomes very bubbley and purulant at the end. Very foul odor. Voiding Methods Toilet Laboratory Results WBC 7.68 k/cumm (4.4-10.8) 03/13/19 07:05 RBC 4.19 m/cumm (4.50-6.00) L 03/13/19 07:05 Hgb 12.1 g/dL (13.5-17.5) L 03/13/19 07:05 Hct 37.1 % (40.0-50.0) L 03/13/19 07:05 MCV 88.5 fL (80-95) 03/13/19 07:05 MCH 28.9 pg (27.0-33.0) 03/13/19 07:05 MCHC 32.6 g/dL (32.0-36.0) 03/13/19 07:05 RDW 14.0 % (11.8-14.1) 03/13/19 07:05 Plt Count 277 x1000/uL (130-400) 03/13/19 07:05 MPV 10.6 fL (8.0-11.0) 03/13/19 07:05 Immature Gran % 0.1 03/13/19 07:05 Neutrophils % 66.0 03/13/19 07:05 Lymphocytes % 16.1 03/13/19 07:05 Monocytes % 6.3 03/13/19 07:05 Eosinophils % 11.2 03/13/19 07:05 Basophils % 0.3 03/13/19 07:05 Absolute Neutrophils 5.07 k/cumm (1.2-6.7) 03/13/19 07:05 Absolute Lymphocytes 1.24 k/cumm (1.2-3.4) 03/13/19 07:05 Absolute Monocytes 0.48 k/cumm (0.11-0.7) 03/13/19 07:05 Absolute Eosinophils 0.86 k/cumm (0.0-0.7) H 03/13/19 07:05 Absolute Basophils 0.02 k/cumm (0.0-0.2) 03/13/19 07:05 PT 10.4 sec (9.3-11.0) 03/10/19 15:00 INR 1.0 (0.9-1.1) 03/10/19 15:00 Sodium 141 mmol/L (136-145) 03/13/19 07:05 Potassium 4.2 mmol/L (3.5-5.1) 03/13/19 07:05 Chloride 104 mmol/L (98-107) 03/13/19 07:05 Carbon Dioxide 30.4 mmol/L (21.0-32.0) 03/13/19 07:05 Anion Gap 6.6 mmol/L (3-11) 03/13/19 07:05 BUN 23 mg/dL (7-18) H 03/13/19 07:05 Creatinine 2.03 mg/dL (0.70-1.30) H 03/13/19 07:05 Estimated GFR/1.73 m2 32.26 (mL/min/1.73m2) 03/13/19 07:05 Glucose 255 mg/dL (70-100) H 03/13/19 07:05 Calcium 8.8 mg/dL (8.5-10.1) 03/13/19 07:05 Magnesium 1.9 mg/dL (1.8-2.4) 03/13/19 07:05 Total Bilirubin 0.4 mg/dL (0.2-1.0) 03/10/19 15:00 AST 16 U/L (15-37) 03/10/19 15:00 ALT 20 U/L (16-63) 03/10/19 15:00 Alkaline Phosphatase 119 U/L (46-116) H 03/10/19 15:00 Troponin I < 0.05 ng/mL (0.00-0.06) 03/12/19 11:55 Total Protein 6.6 g/dL (6.4-8.2) 03/10/19 15:00 Albumin 3.0 g/dL (3.4-5.0) L 03/10/19 15:00 Urine Color Yellow (Yellow) 03/11/19 18:23 Urine Clarity Cloudy (Clear) 03/11/19 18:23 Urine pH 5.5 (5-8) 03/11/19 18:23 Ur Specific [place] >= 1.030 (1.005-1.025) H 03/11/19 18:23 Urine Protein >=300 mg/dL (Negative) H 03/11/19 18:23 Urine Ketones Negative mg/dL (Negative) 03/11/19 18:23 Urine Blood Large (Negative) H 03/11/19 18:23 Urine Nitrite Negative (Negative) 03/11/19 18:23 Urine Bilirubin Negative (Negative) 03/11/19 18:23 Urine Urobilinogen 0.2 EU/dL (Up TO 0.2) 03/11/19 18:23 Ur Leukocyte Esterase Negative (Negative) 03/11/19 18:23 Urine RBC Negative HPF (0-2) 03/11/19 18:23 Urine WBC >50 HPF (0-5) H 03/11/19 18:23 Ur Epithelial Cells Negative HPF (Negative) 03/11/19 18:23 Urine Crystals Negative HPF (Negative) 03/11/19 18:23 Urine Bacteria Many HPF (Negative) 03/11/19 18:23 Urine Casts Negative LPF (Negative) 03/11/19 18:23 Urine Mucus Negative (Negative) 03/11/19 18:23 Urine Other Negative (Negative) 03/10/19 16:57 Ur Culture Indicated? Yes 03/11/19 18:23 Urine Glucose Negative mg/dL (Negative) 03/11/19 18:23
--- NOTE | 2019-03-13 15:08 | W.INDIABCONS ---
Date of service: 03/13/19 Time of Service: 15:08 Diabetes Inpatient Consult DESCRIPTION/ASSESSMENT: Appreicate diabetes consult for Mr. Panchal who is well known to outpatient diabetes, followed for many years. Historically he has been making food choices out of convenience as he does not really cook. He eats from [employer] many days; has pastry for breakfast. He also had difficulty taking insulin with meals. BMI 33 A1c - no current available Currently at home medication regimen indicates 60u Basaglar twice daily, 22u mealtime insulin in addition to the GLP1 Trulicity once a week and januvia. Blood sugar at admission 130 but has been in the 200s since the first day without basal insulin or mealtime insulin to cover food. He has sensitive insulin correction only, but lantus at 5u has been ordered for today. He is eating 100% of most meals including clear liquid. INTERVENTION: Suggest he receive at least half his usual basal insulin during this illness. PLAN: Suggest 60u Lantus once a day initially Will f/u with him for diabetes self management Time Spent in Nutritional Counseling and Treatment: 0 minutes face to face
[2019-03-13] MEDS: Normal Saline 1,000 ML 75 ML IV (15:49)
--- NOTE | 2019-03-13 16:23 | PDOC.EEG_ITS ---
Neurology EEG EEG: [facility] Department of Neurology INPATIENT EEG REPORT Date of Recordin03/13/19 Interpreting Physician: Dr. Shonda Kan Reason for study: Mr. Panchal is a 73 year-old man with a history of possible seizure disorder who was admitted after a ?spells of AMS, found slumped by EMS. Current Medications: Current Medications Acetaminophen (Tylenol) 650 mg PO Q4H PRN PRN Albuterol Sulfate (Ventolin Hfa) 2 puff IH Q6H PRN PRN Atorvastatin Calcium (Lipitor) 80 mg PO HS [facility] Last Admin: 03/12/19 20:54 Dose: 80 mg Documented by: Budesonide/Formoterol Fumarate (Symbicort 160/4.5 Mcg Inhaler) 0 puff IH BID [facility] Last Admin: 03/13/19 07:55 Dose: 2 puffs Documented by: Dextrose (Insta-Glucose) 0 gm PO DIRECTED PRN Dextrose/Water () 0 gm IVP DIRECTED PRN Diltiazem HCl (Cardizem Cd) 240 mg PO DAILY [facility] Last Admin: 03/13/19 08:29 Dose: 240 mg Documented by: Dimethicone/Zinc Oxide (Arabella Protect Cream) 0 gm TP PRN PRN Finasteride (Proscar) 5 mg PO DAILY [facility] Last Admin: 03/13/19 08:28 Dose: 5 mg Documented by: Heparin Sodium (Porcine) () 5,000 units SC Q12H [facility] Last Admin: 03/13/19 08:28 Dose: 5,000 units Documented by: Sodium Chloride (Saline 1000ml Bag) 1,000 mls @ 75 mls/hr IV INFUSION LASHAWN Stop: 03/14/19 04:19 Last Admin: 03/13/19 15:49 Dose: 75 mls/hr Documented by: IV Miscellaneous Supplies () 1 each IV DIRECTED LASHA[facility] Insulin Aspart (Novolog Flexpen) 0 units SC AC & HS LASHAWN; Protocol Insulin Glargine (Lantus Solostar) 5 units SC HS [facility] Levetiracetam (Keppra) 500 mg PO BID [facility] Last Admin: 03/13/19 08:28 Dose: 500 mg Documented by: Melatonin () 3 mg PO HS PRN PRN Metoprolol Tartrate (Lopressor) 12.5 mg PO BID [facility] Last Admin: 03/13/19 08:28 Dose: 12.5 mg Documented by: Metoprolol Tartrate (Lopressor Injection) 5 mg IVP Q6H PRN PRN Omeprazole (Prilosec) 40 mg PO DAILY@0730 [facility] Last Admin: 03/13/19 08:28 Dose: 40 mg Documented by: Ondansetron HCl (Zofran Injection) 4 mg IVP Q4H PRN PRN Last Admin: 03/12/19 08:09 Dose: 4 mg Documented by: Sertraline HCl (Zoloft) 100 mg PO DAILY [facility] Last Admin: 03/13/19 08:28 Dose: 100 mg Documented by: Sodium Chloride (Saline Flush 10 Ml Syringe) 0 ml IVP PRN PRN Last Admin: 03/12/19 20:54 Dose: 10 ml Documented by: Tamsulosin HCl (Flomax) 0.4 mg PO DAILY [facility] Last Admin: 03/13/19 08:28 Dose: 0.4 mg Documented by: Tiotropium [place] (Spiriva Respimat) 2 puff IH DAILY [facility] Last Admin: 03/13/19 07:54 Dose: 2 puffs Documented by: METHODS: A 21 channel digitized electroencephalogram was performed in the [facility] Med/Surg Floor or ICU. The 10/20 international system of electrode placement was used and bipolar and referential electrode montages were recorded. In addition to EEG the patient was monitored for EKG and lateral/vertical eye movements. Activation procedures of photic stimulation and hyperventilation were performed if applicable. Video was used during activation procedures and during events where applicable. The duration of the recording was 30 minutes. DESCRIPTION OF EEG: The patient was noted to be awake, drowsy, and asleep during the recording. During maximal wakefulness a 7-8 Hz posterior background rhythm was present which was poorly-modulated, symmetrical, reactive to eye opening, and of moderate voltage. With eye opening the background activity changed to a low voltage mixture of alpha, beta, and occasional theta range frequencies. Faster frequencies were present in the bilateral anterior head regions. There was a normal anterior-posterior voltage gradient. During drowsiness, there was attenuation of the posterior dominant background rhythm and vertex waves. Stage II sleep was present with symmetrical sleep spindles, K-complexes, and vertex waves. Throughout the recording, there was generalized, moderate amplitude, polymorphic delta slowing. Activating Procedures: Photic stimulation was performed which produced a symmetrical posterior driving response at various flash frequencies. Hyperventilation was not performed. EKG: EKG revealed normal sinus rhythm. INTERPRETATION: This EEG is abnormal due to Intermittent, generalized, moderate-amplitude, polymorphic slowing and slowing of the PDR. PRIOR EEG: -10/14/17: Intermittent, generalized, moderate-amplitude, polymorphic slowing (1- 2 Hz). Slowing of the posterior dominant background rhythm. CLINICAL CORRELATION: The background slowing is suggestive of a mild diffuse cerebral encephalopathy of broad differential including toxic-metabolic etiology. No focal regions of cerebral dysfunction or epileptiform activity was present. Clinical correlation is advised. Shonda Kan MD
--- NOTE | 2019-03-13 16:32 | W.NEUROCONSU ---
Date of service: 03/13/19 Time of Service: 16:32 Assessment and Plan Assessment and plan (1) Spell of abnormal behavior: Status: Acute (2) Dysarthria: Status: Acute Assessment and plan: Mr. Panchal is a 73 year-old, right-handed man with a PMH of questionable seizures diagnosed in 2018 and manifested by spells of confusion. He was admitted after a spell of generalized shaking without any evidence of loss of awareness. Based on the description of recent events, I do not think that these recent events represent seizure. I guess that a bizarre frontal lobe seizure remains in the differential, but he is also on an excellent dose of Keppra (maximum dose based on CrCl), which makes seizure even less likely. His CT head is stable and his EEG did not show any seizure activity. I recommend continuing Keppra 500mg bID for now. I otherwise strongly encouraged either placement in asisstive living or some type of 24/7 care for Mr. Panchal. Finally, Mr. Pierre son notes new dysarthria. I am not sure that he truly has dysarthria or whether it's an effect of his URI/congestion. If speech has not improved overnight, would recommend a brain MRI without contrast. He has no dysphagia and no focal neurological signs on exam. His bilateral babinki reflexes are being worked up as an outpatient. History of Present Illness History of Present Illness Chief Complaint: spells Narrative: Handedness: right. HPI: Mr. Panchal is a 73 year-old man with a PMH of remote stroke, DM2, HTN, HLD, CKD, urinary retention performing self catherterization, COPD, and questionable seizures. I know Mr. Panchal well and have met him several times and saw him in clinic on 02/13/19. He was admitted on 03/10/19 after he called 911. He was home alone when he developed generalized shaking. He tried to activate his life alert button, but was unable to do say. He was eventually able to call 911 on the phone but was unable to hold on to the phone to talk to dispatch, so that EMS was sent. EMS found him slumped with altered mental status per report. The ER notes he was back to normal upon arrival. Mr. Panchal denies any LOC and recalls EMS arrival. He was complaining of nausea which has improved over his stay. There were reports of emesis and shortness of breath, but Mr. Panchal is not able to tell me today if or when any of those symptoms might have occurred. His work-up in the ER was significant for Cr 1.8 (better than baseline)and a troponin 0.08. By the next day, his BPs had increased to 190s systolic. His BP and troponins have both come down. He had a CT head on 03/10/19 which I reviewed the images of personally. It was unchanged compared to the 12/03/18 images. He has moderate atrophy and white matter changes with apparent old infarcts on the right cerebellum, right basal ganglia, and right frontal subcortex. He had an EEG today consistent with a mild encephalopathy. Mr. Panchal is on Keppra 500mg BID and states he takes his medications regularly. He was admitted in November after he had a similar spell. His son who witnessed the event was here today to discuss this further. His dad developed generalized shaking during which he was able to converse and follow commands. This seemed to subside at which time he helped Mr. Panchal stand up. Mr. Panchal then began vomiting at which point he became unresponsive. His son performed CPR. Please review previous notes for further details. After review of the story, I concluded that his symptoms were most likely vsovagal syncope due to severe vomiting. I did not change his Keppra dose which is already at maximum dosage based on his CrCl. Today, Mr. Panchal has an apparent small laceration on the right tongue. He does not know when this could have occurred. His son notes that his speech is slurred more than usual. Otherwise, Mr. Panchal lives with his son whom is not home during the day (at work). Son thinks Mr. Panchal needs assistive living and I agree. Mr. Panchal has not agreed. It sounds like his PCP office arranged for day care at the [facility], but Mr. Panchla did not end of going. Consults Requesting physician: Yoselyn Hdz Review of Systems All systems reviewed & are unremarkable except as noted in HPI and below [facility] History Cerebrovascular disease (Chronic) CVA CKD (chronic kidney disease) (Acute) COPD (chronic obstructive pulmonary disease) (Chronic) Diabetes (Chronic) Diabetic gastroenteropathy (Acute) GERD (gastroesophageal reflux disease) (Chronic) HTN (hypertension) (Chronic) Hyperlipidemia (Acute) Seizure (Acute) Urinary retention (Acute) Surgical History EGD - MAC (07/28/16) S/P insertion of penile implant (Acute) S/P prostatectomy (Acute) Social History Smoking/Tobacco Use Status: Former Tobacco Use Alcohol Intake: never Drug use: Never Substance use type: does not use Household members: children 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 What is your relationship status?: Panel score (0-1 are the most socially isolated patients): 0 Seatbelt use: never Do you feel safe in your relationship?: Yes Visit Medication and Allergies Active Medications Generic Name Dose Route Start Last Admin Trade Name Freq PRN Reason Stop Dose Admin Acetaminophen 650 mg 03/10/19 18:40 Tylenol PO Q4H PRN PRN Albuterol Sulfate 2 puff 03/10/19 20:30 Ventolin Hfa IH Q6H PRN PRN Atorvastatin Calcium 80 mg 03/10/19 22:00 03/12/19 20:54 Lipitor PO 80 mg HS LASHAWN Administration Budesonide/Formoterol Fumarate 0 puff 03/11/19 08:30 03/13/19 07:55 Symbicort 160/4.5 Mcg Inhaler IH 2 puffs BID LASHAWN Administration Dextrose 0 gm 03/10/19 18:32 Insta-Glucose PO DIRECTED PRN Dextrose/Water 0 gm 03/10/19 18:32 IVP DIRECTED PRN Diltiazem HCl 240 mg 03/11/19 08:30 03/13/19 08:29 Cardizem Cd PO 240 mg DAILY LASHAWN Administration Dimethicone/Zinc Oxide 0 gm 03/10/19 18:32 Arabella Protect Cream TP PRN PRN Finasteride 5 mg 03/11/19 08:30 03/13/19 08:28 Proscar PO 5 mg DAILY LASHAWN Administration Heparin Sodium (Porcine) 5,000 units 03/13/19 08:30 03/13/19 08:28 SC 5,000 units Q12H LASHAWN Administration Sodium Chloride 1,000 mls @ 75 mls/hr 03/13/19 15:00 03/13/19 15:49 Saline 1000ml Bag IV 03/14/19 04:19 75 mls/hr INFUSION LASHAWN Administration IV Miscellaneous Supplies 1 each 03/10/19 15:15 IV DIRECTED [facility] Insulin Aspart 0 units 03/13/19 16:30 Novolog Flexpen SC AC & HS [facility] Protocol Insulin Glargine 5 units 03/13/19 22:00 Lantus Solostar SC [facility] Levetiracetam 500 mg 03/10/19 20:00 03/13/19 08:28 Keppra PO 500 mg BID [facility] Administration Melatonin 3 mg 03/10/19 20:32 PO HS PRN PRN Metoprolol Tartrate 12.5 mg 03/11/19 16:15 03/13/19 08:28 Lopressor PO 12.5 mg BID LASHAWN Administration Metoprolol Tartrate 5 mg 03/11/19 16:11 Lopressor Injection IVP Q6H PRN PRN Omeprazole 40 mg 03/13/19 07:30 03/13/19 08:28 Prilosec PO 40 mg DAILY@0730 LASHAWN Administration Ondansetron HCl 4 mg 03/10/19 18:32 03/12/19 08:09 Zofran Injection IVP 4 mg Q4H PRN PRN Administration Sertraline HCl 100 mg 03/11/19 08:30 03/13/19 08:28 Zoloft PO 100 mg DAILY LASHAWN Administration Sodium Chloride 0 ml 03/10/19 15:09 03/12/19 20:54 Saline Flush 10 Ml Syringe IVP 10 ml PRN PRN Administration Tamsulosin HCl 0.4 mg 03/13/19 08:30 03/13/19 08:28 Flomax PO 0.4 mg DAILY [facility] Administration Tiotropium [place] 2 puff 03/11/19 08:30 03/13/19 07:54 Spiriva Respimat IH 2 puffs DAILY LASHAWN Administration Allergies No Known Allergies Allergy (Unverified 02/13/19 13:57) Exam Narrative Exam Narrative: Physical Exam: Gen: Patient of apparent stated age, NAD Head and face: no facial or cranial abnormalities Neck: Supple, no meningismus, no occipital tenderness CV: + S1, S2, RRR, no murmur Resp: CTA B/L Abd: soft, nontender, nondistended Ext: No clubbing or cyanosis. No bony deformity. Neuro Exam: Language: fluency, naming, repetition, and comprehension intact; Mental Status: AAOx3, current events intact, fund of knowledge intact; Speech: ?mild dysarthria - has a lot of phlegm in his throat/coughing Cranial nerves: Funduscopy: not performed CN II: visual huerta intact CN III, IV, : extraocular movements intact, no nystagmus, pupils symmetric and reactive to light CN V: face sensation intact to LT and PP CN VII: no facial asymmetry noted CN VIII: hearing intact bilaterally CN IX, X: palate rises symmetrically CN XI: trapezius/SCM 5/5 bilaterally CN XII: protrudes tongue symmetrically Sensory: intact to LT in all extremities Motor: bulk and tone intact. Fine motor movements intact bilaterally. No pronator drift. Strength 5/5 throughout including the deltoids, biceps, triceps, wrist extensors, hip flexors, knee flexors, knee extensors, ankle flexors, and ankle extensors. Reflexes: 2+ at the biceps, triceps, and brachioradialis; absent at the patella and achilles tendons bilaterally; toes upgoing bilaterally; Coordination: FTN and HTS intact bilaterally Gait: deferred Results Last Vital Signs Temp 36.7 C 03/13/19 16:02 Pulse 62 03/13/19 16:02 Resp 21 03/13/19 16:02 BP 139/64 03/13/19 16:02 Pulse Ox 91 L 03/13/19 16:02 Labs Result diagrams: 03/13/19 07:05 03/13/19 07:05 Labs: Laboratory Results - last 24 hr 03/13/19 03/13/19 07:05 07:05 WBC 7.68 RBC 4.19 L Hgb 12.1 L Hct 37.1 L MCV 88.5 MCH 28.9 MCHC 32.6 RDW 14.0 Plt Count 277 MPV 10.6 Immature Gran % 0.1 Neutrophils % 66.0 Lymphocytes % 16.1 Monocytes % 6.3 Eosinophils % 11.2 Basophils % 0.3 Absolute Neutrophils 5.07 Absolute Lymphocytes 1.24 Absolute Monocytes 0.48 Absolute Eosinophils 0.86 H Absolute Basophils 0.02 Sodium 141 Potassium 4.2 Chloride 104 Carbon Dioxide 30.4 Anion Gap 6.6 BUN 23 H Creatinine 2.03 H Estimated GFR/1.73 m2 32.26 Glucose 255 H Calcium 8.8 Magnesium 1.9
[2019-03-13] MEDS: Atorvastatin 40 MG TAB 80 MG PO (20:46)
[2019-03-13] MEDS: Insulin Glargine 300 UNITS/3 ML PEN SC (22:41)
[2019-03-14] VITALS (7 sets, daily range): BP systolic 144–184; BP diastolic 66–84; PULSE 65–80; RESP 16–21; TEMP 36.6–36.9; O2SAT 92–98
[2019-03-14] MEDS: Budesonide/Formoterol 160/4.5 6 GM 60 PUFF INH IH ×2 (07:34→20:18)
[2019-03-14] MEDS: Tiotropium Bromide-Respimat 10 PUFF INH 2 PUFF IH (07:35)
[2019-03-14 07:48] LABS: HCT 33.5 % (40.0-50.0); Mean Corp. HGB Concentration 32.8 g/dL (32.0-36.0); Mean Corpuscular Hemoglobin 28.8 pg (27.0-33.0); Mean Corpuscular Volume 87.7 fL (80-95); Mean Platelet Volume 11.1 fL (8.0-11.0); Platelet Count 225 x1000/uL (130-400); RBC 3.82 m/cumm (4.50-6.00); RBC Distribution Width 13.9 % (11.8-14.1); White Blood Cell Count 7.05 k/cumm (4.4-10.8)
[2019-03-14 07:52] LABS: Anion Gap 7.3 mmol/L (3-11); BUN 25 mg/dL (7-18); CO2 26.7 mmol/L (21.0-32.0); CREATININE 1.83 mg/dL (0.70-1.30); Calcium 8.2 mg/dL (8.5-10.1); Chloride 106 mmol/L (98-107); Estimated GFR 36.37 (mL/min/1.73m2); Glucose 237 mg/dL (70-100); Magnesium 1.7 mg/dL (1.8-2.4); Potassium 4.3 mmol/L (3.5-5.1); Sodium 140 mmol/L (136-145)
--- NOTE | 2019-03-14 08:52 | PDOC.CMPRO ---
Care Management Progress Note S/O: Ed continues to be closely monitored for seizure activity and kidney function, he worked with PT/OT today who recommend SNF for discharge. CM continues to follow. A; Edtara is a 73 year old man admitted on 03/11/19 with hypertensive emergency P: Ed may require SNF upon discharge, referral faxed to [facility]. CM will continue to support patient, family and discharge planning needs.
[2019-03-14] MEDS: dilTIAZem CD 120 MG CAPCR 240 MG PO (08:55)
[2019-03-14] MEDS: Insulin Aspart 300 UNITS/3 ML PEN SC ×4 (08:55→20:18)
[2019-03-14] MEDS: Heparin 5,000 UNITS/ML VIAL 5000 UNITS SC ×2 (08:55→20:17)
[2019-03-14] MEDS: Finasteride 5 MG TAB PO (08:56)
[2019-03-14] MEDS: Metoprolol 12.5 MG TAB PO ×2 (08:56→20:16)
[2019-03-14] MEDS: Omeprazole 20 MG CAPCR 40 MG PO (08:56)
[2019-03-14] MEDS: Sertraline 50 MG TAB 100 MG PO (08:56)
[2019-03-14] MEDS: levETIRAcetam 500 MG TAB PO ×2 (08:56→20:16)
[2019-03-14] MEDS: Tamsulosin 0.4 MG CAPCR PO (08:56)
[2019-03-14] MEDS: Normal Saline Flush 10 ML SYR IVP (11:44)
[2019-03-14] MEDS: MAGNESIUM SULFATE 2 GM/50 ML BAG IVPB (11:48)
--- NOTE | 2019-03-14 13:00 | PT.INIE ---
Date of service: 03/14/19 Time of Service: 13:00 PT Notes Inpatient Physical Therapy Evaluation Date: 03/14/2019 Referring Doctor: Yoselyn Hdz MD PT Orders: PT CONSULT: Limited ability Precautions: Fall. Standard. Activity as tolerated. Patient Profile/Admitting Diagnosis: Patient is a 73-year-old male with past medical history significant for cerebrovascular disease, COPD, and CKD who presented to the ED on 03/10/2019 with chief presentation on shortness of breath, vomitting, bloody urine, and feelings of being queasy. Patient is nausea, hypertensive emergency, and acute kidney injury superimprosed on chronic kidney disease. PMHX: Medical History Cerebrovascular disease (Chronic) CKD (chronic kidney disease) (Acute) COPD (chronic obstructive pulmonary disease) (Chronic) Diabetes (Chronic) Diabetic gastroenteropathy (Acute) GERD (gastroesophageal reflux disease) (Chronic) HTN (hypertension) (Chronic) Hyperlipidemia (Acute) Seizure (Acute) Urinary retention (Acute) Surgical History EGD - MAC (07/28/16) Social History/Home Situation: Patient lives with son Hector in a split level home with 12 steps to enter the first 6 steps have a rail on the right going up and leads to a landing and the second batch of stairs has rails on both sides leading onto entrance of house. He reports that he used to receive Meals on Wheels but his son has been able to manage preparing his meals. Patient is alone during the day as the son works full-time. He is able to manage in-house ambulation using his 4 wheeled walker. He does not go out of the house without assistance. Son takes care of laundry, grocery shopping, and box office attendant. Equipment Owned/DME: 4WW, FWW, SC, shower seat Subjective: Patient is agreeable to a PT consult. He reports feeling significantly better without having to feel nauseous. he does say that he is fatigued. He reports no headache, chest pain, and dizziness throughout PT session. He is agreeable to resuming skilled physical therapy services once discharged home. Objective: General Observation: Patient seen resting in bed upon arrival of PT. Telemetry monitoring in place. Mental Status: Alert and oriented as to person, place, time, purpose Pain: 0/10 ROM: Right Upper Extremity: Shoulder Flexion WFL. Shoulder abduction WFL. Elbow flexion WFL. Wrist flexion WFL. Functional opening and closing of hand WFL. Left Upper Extremity: Shoulder Flexion allows up to about 100 degrees. Shoulder abduction allows up to about 100 degrees. Elbow flexion WFL. Wrist flexion WFL. Functional opening and closing of hand WFL. Right Lower Extremity: Hip flexion WFL. Hip abduction WFL. Knee flexion WFL. Ankle dorsiflexion WFL. Ankle plantarflexion WFL. Left Lower Extremity: Hip flexion WFL. Hip abduction WFL. Knee flexion WFL. Ankle dorsiflexion WFL. Ankle plantarflexion WFL. Strength: Right Upper Extremity: Shoulder flexors 4/5. Shoulder abductors 4/5. Elbow flexors 4/5. Elbow extensors 4/5. Aerial Photographer strong. Left Upper Extremity: Shoulder flexors 3-/5. Shoulder abductors 4/5. Elbow flexors 4/5. Elbow extensors 4/5. Aerial Photographer strong. Right Lower Extremity: Hip flexors 4/5. Hip abductors 4/5. Knee flexors 4/5. Knee extensors 4/5. Ankle dorsiflexors 4/5. Ankle plantarflexors 4/5. Left Lower Extremity:Hip flexors 4-/5. Hip abductors 4-/5. Resisted gravity-eliminated hip ER less than on the R side. Knee flexors 4-/5. Knee extensors 4-/5. Ankle dorsiflexors 4-/5. Ankle plantarflexors 4-/5. Sensation: Intact as to pain and pressure on bilateral lower extremities. Bed Mobility/Transfers: Rolling minimal assist Supine to sit minimal assist Sit to supine minimal assist Sit to stand CGA Stand to sit CGA Bed to chair CGA Chair to bed CGA Gait: Patient was able to tolerate level surface ambulation for 80 feet + 15 feet + 15 feet using front-wheeled walker with CGA of PT and wheelchair follow of Nurse Pacheco patient demonstrating mild breathlessness and reporting mild breathlessness and fatigue. Decreased gait velocity observed decreased step height and length observed. Minimal verbal cues were given for walker management, coordinated breathing exercises, and postural alignment. Balance: Static Sitting: Normal Dynamic Sitting: Normal Static Standing: Fair Dynamic Standing: Fair Special Tests: Mobility Limitations Standardized Measure [facility] 6 clicks Basic Mobility Inpatient Short Form: Raw Score: 18 CMS Score: 47% deficit 4-Stage Balance Test: Patient only able to maintain feet together x 10 seconds unsupported but is unable to maintain semi-tandem, full-tandem, and one-legged stance for same duration. This signifies increased fall risk due to compromised balance thus requiring use of AD for safety. Informed Consent/Education: Patient instructed in purpose of PT consult and plan of care. Patient is agreeable to physical therapy visit frequency twice daily with treatment focused on bilateral lower extremity strengthening, balance training, and skilling to improve activity tolerance. Patient is a 73-year-old male diagnosed with sepsis, acute respiratory failure, COPD exacerbation. His prognosis for regaining his prior mobility level is fair to good. His motivation level is good. Assessment: Patient is a 73-year-old male with past medical history significant for cerebrovascular disease, COPD, and CKD who presented to the ED on 03/10/2019 with chief presentation on shortness of breath, vomitting, bloody urine, and feelings of being queasy. Patient is diagnosed with nausea, hypertensive emergency, and acute kidney injury superimprosed on chronic kidney disease. Patient is alone during the day and therefore would need to be independent with all transfer and ambulation task with FWW in order to reduce fall risk and increase activity tolerance MRADLs. Patient presents with clinical signs and symptoms consistent with current/admitting diagnoses that have resulted to mobility limitations, gait instability, generalized weakness, and impairment of motor control as demonstrated by the following impairment level findings: 1. Decreased strength to B LE major muscle groups 2. Impaired standing balance 3. Impaired activity tolerance, breathlessness with walking Impairments are contributing to the following functional limitations: 1. Increased dependence with transfers 2. Inability to safely ambulate without assistive device and physical assistance 3. Increase completion time for mobility ADL performance 4. Increased fall risk 5. Inability to negotiate steps alone safely Patient is assessed as a 17805 moderate complexity based on the following: History: Relevant past medical history of cerebrovascular accident, COPD, CKD and seizures Examination: Demonstrable impairment in strength, balance, and range of motion with underlying impairments and functional limitations as documented above Presentation:Evolving Decision Makin moderate complexity Goals: Goals X1 week 1. Supine-Sit independent 2. Sit-Supine independent 3. Sit-Stand independent 4. Stand-Sit independent 5. Bed-Chair independent 6. Chair-Bed independent 7. Independent gait on level surface with use of least restrictive device for at least 200 feet without report of pain nor dyspnea 8. Independent stair negotiation while holding onto bilateral rails for at least 10 steps without report of pain nor dyspnea 9. Independent with home exercise program 10. Good static and dynamic standing balance/tolerance Plan of Care/Treatment Plan: 1-2x/day, 7 days/week x 1 week. Plan of care has been reviewed with the HOUSING INSPECTOR providing the service under Physical Therapy direction. Initiate Physical Therapy intervention for strengthening, bed mobility, transfers, gait, stairs, balance training, use of assistive device. DISCHARGE RECOMMENDATIONS: Patient will benefit from continued use of a front wheeled walker to reduce fall risk and increase activity tolerance at home. Patient will benefit from home health PT services in order to progress mobility level using least restrictive assistive ambulatory device, assess home safety, identify additional equipment needs, and establish a functional maintenance program that will increase ability of patient to remain at home. TREATMENT CODE/TIME: 78323 x 31 minutes beginning at 13:00 PM. Thank you very much for this referral. Debra Quezada PT, DPT, CLT [facility]
--- NOTE | 2019-03-14 16:10 | CHAPLAIN ---
Eduardotara was resting in bed when I visited. He was pleasant, but did not seem interested in further conversation. I explained my role and offered support.
--- NOTE | 2019-03-14 17:40 | W.PM.PROGNOT ---
Date of Service Date of service: 03/14/19 Time of Service: 17:40 Assessment and Plan Assessment and plan (1) Hypertensive emergency: Status: Resolved Assessment and plan: BP's better. Would not resume cozaar. (2) Nausea: Status: Resolved Assessment and plan: Possible component of hypertensive emergency at the time. Continue PPI as reflux could also have contributed. (3) Seizure disorder: Status: Chronic Assessment and plan: On Keppra. Evaluated by neurology - episodes of tremors happen when the patient is awake and do not sounds seizure-like. Would benefit from a closer medical supervision during the day - such as in rehab. (4) Urinary retention: Status: Chronic Assessment and plan: Continue intermittent caths on outpatient schedule. No evidence of UTI. 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 Continue cardizem. The patient's outpatient xarelto/asa were stopped as outpatient - he is no longer on them here. Monitor HR with addition of metoprolol. (7) Acute kidney injury superimposed on chronic kidney disease: Status: Acute Assessment and plan: Cr better. D/c IVF. Would not resume ARB. (8) Discharge planning issues: Status: Acute Assessment and plan: Full code Will be going to SNF from here (9) DVT prophylaxis: Status: Acute Assessment and plan: SC heparin, TEDs, SCDs Subjective Subjective Interval history since last seen: Mr Panchal states that he is doing well, but feels tired. Denies dizziness, chest pain, shortness of breath, nausea. Agrees to go to SNF. NO episodes of tremors, unresponsiveness, or n/v today. Exam Narrative Exam Narrative: General: very pleasant elderly male, laying in bed, reading the newspaper, is able to annunciate clearly - he does not agree with impeachment proceedings. HEENT: EOMI, MMM; Heart: RRR, no m/r/g Lungs: CTAB GI: abdomen is soft, nontender, nondistended Extremities: wearing TEDs, no obvious edema BLEs. Objective Objective Clinical Data: Abnormal lab results 03/14/19 03/14/19 Range/Units 06:50 06:50 RBC 3.82 L (4.50-6.00) m/cumm Hgb 11.0 L (13.5-17.5) g/dL Hct 33.5 L (40.0-50.0) % MPV 11.1 H (8.0-11.0) fL BUN 25 H (7-18) mg/dL Creatinine 1.83 H (0.70-1.30) mg/dL Glucose 237 H (70-100) mg/dL Calcium 8.2 L (8.5-10.1) mg/dL Magnesium 1.7 L (1.8-2.4) mg/dL Vital Signs Temperature 36.7 C 03/14/19 15:47 Temperature Source Temporal Artery Scan 03/14/19 15:47 Pulse 71 03/14/19 15:47 Pulse Rhythm Regular 03/14/19 11:00 Respiratory Rate 16 03/14/19 15:47 Respiratory Effort 03/14/19 11:00 Respiratory Depth Normal 03/14/19 11:00 Respiratory Pattern Normal 03/14/19 11:00 Blood Pressure 147/68 H 03/14/19 15:47 Blood Pressure Position Sitting 03/10/19 14:40 Pulse Oximetry 98 03/14/19 15:47 Oxygen Delivery Method Room Air 03/14/19 15:47 Oxygen Flow Rate 0 03/14/19 15:47 Pain Level 0 03/14/19 15:47 Comment 03/13/19 13:25 Intake & Output 03/13/19 03/14/19 03/14/19 23:59 11:59 23:59 Intake Total 720 / 970 240 / 360 120 / 360 Output Total 600 / 1000 1650 / 2000 350 / 2000 Balance 120 / -30 -1410 / -1640 -230 / -1640 Intake: Oral 720 / 970 240 / 360 120 / 360 Output: Urine 600 / 1000 1650 / 2000 350 / 2000 Other: Urine Color Yellow Yellow Pale Yellow Urine Appearance Cloudy Cloudy Urine Odor Foul Comment documented elsewhere Voiding Methods Urinal Laboratory Results WBC 7.05 k/cumm (4.4-10.8) 03/14/19 06:50 RBC 3.82 m/cumm (4.50-6.00) L 03/14/19 06:50 Hgb 11.0 g/dL (13.5-17.5) L 03/14/19 06:50 Hct 33.5 % (40.0-50.0) L 03/14/19 06:50 MCV 87.7 fL (80-95) 03/14/19 06:50 MCH 28.8 pg (27.0-33.0) 03/14/19 06:50 MCHC 32.8 g/dL (32.0-36.0) 03/14/19 06:50 RDW 13.9 % (11.8-14.1) 03/14/19 06:50 Plt Count 225 x1000/uL (130-400) 03/14/19 06:50 MPV 11.1 fL (8.0-11.0) H 03/14/19 06:50 Immature Gran % 0.1 03/13/19 07:05 Neutrophils % 66.0 03/13/19 07:05 Lymphocytes % 16.1 03/13/19 07:05 Monocytes % 6.3 03/13/19 07:05 Eosinophils % 11.2 03/13/19 07:05 Basophils % 0.3 03/13/19 07:05 Absolute Neutrophils 5.07 k/cumm (1.2-6.7) 03/13/19 07:05 Absolute Lymphocytes 1.24 k/cumm (1.2-3.4) 03/13/19 07:05 Absolute Monocytes 0.48 k/cumm (0.11-0.7) 03/13/19 07:05 Absolute Eosinophils 0.86 k/cumm (0.0-0.7) H 03/13/19 07:05 Absolute Basophils 0.02 k/cumm (0.0-0.2) 03/13/19 07:05 PT 10.4 sec (9.3-11.0) 03/10/19 15:00 INR 1.0 (0.9-1.1) 03/10/19 15:00 Sodium 140 mmol/L (136-145) 03/14/19 06:50 Potassium 4.3 mmol/L (3.5-5.1) 03/14/19 06:50 Chloride 106 mmol/L (98-107) 03/14/19 06:50 Carbon Dioxide 26.7 mmol/L (21.0-32.0) 03/14/19 06:50 Anion Gap 7.3 mmol/L (3-11) 03/14/19 06:50 BUN 25 mg/dL (7-18) H 03/14/19 06:50 Creatinine 1.83 mg/dL (0.70-1.30) H 03/14/19 06:50 Estimated GFR/1.73 m2 36.37 (mL/min/1.73m2) 03/14/19 06:50 Glucose 237 mg/dL (70-100) H 03/14/19 06:50 Calcium 8.2 mg/dL (8.5-10.1) L 03/14/19 06:50 Magnesium 1.7 mg/dL (1.8-2.4) L 03/14/19 06:50 Total Bilirubin 0.4 mg/dL (0.2-1.0) 03/10/19 15:00 AST 16 U/L (15-37) 03/10/19 15:00 ALT 20 U/L (16-63) 03/10/19 15:00 Alkaline Phosphatase 119 U/L (46-116) H 03/10/19 15:00 Troponin I < 0.05 ng/mL (0.00-0.06) 03/12/19 11:55 Total Protein 6.6 g/dL (6.4-8.2) 03/10/19 15:00 Albumin 3.0 g/dL (3.4-5.0) L 03/10/19 15:00 Urine Color Yellow (Yellow) 03/11/19 18:23 Urine Clarity Cloudy (Clear) 03/11/19 18:23 Urine pH 5.5 (5-8) 03/11/19 18:23 Ur Specific [place] >= 1.030 (1.005-1.025) H 03/11/19 18:23 Urine Protein >=300 mg/dL (Negative) H 03/11/19 18:23 Urine Ketones Negative mg/dL (Negative) 03/11/19 18:23 Urine Blood Large (Negative) H 03/11/19 18:23 Urine Nitrite Negative (Negative) 03/11/19 18:23 Urine Bilirubin Negative (Negative) 03/11/19 18:23 Urine Urobilinogen 0.2 EU/dL (Up TO 0.2) 03/11/19 18:23 Ur Leukocyte Esterase Negative (Negative) 03/11/19 18:23 Urine RBC Negative HPF (0-2) 03/11/19 18:23 Urine WBC >50 HPF (0-5) H 03/11/19 18:23 Ur Epithelial Cells Negative HPF (Negative) 03/11/19 18:23 Urine Crystals Negative HPF (Negative) 03/11/19 18:23 Urine Bacteria Many HPF (Negative) 03/11/19 18:23 Urine Casts Negative LPF (Negative) 03/11/19 18:23 Urine Mucus Negative (Negative) 03/11/19 18:23 Urine Other Negative (Negative) 03/10/19 16:57 Ur Culture Indicated? Yes 03/11/19 18:23 Urine Glucose Negative mg/dL (Negative) 03/11/19 18:23
[2019-03-14] MEDS: Atorvastatin 40 MG TAB 80 MG PO (20:16)
[2019-03-14] MEDS: Insulin Glargine 300 UNITS/3 ML PEN 15 UNITS SC (20:17)
[2019-03-15] VITALS (7 sets, daily range): BP systolic 121–157; BP diastolic 66–86; PULSE 63–80; RESP 18–19; TEMP 36.6–36.7; O2SAT 93–95
[2019-03-15] MEDS: Budesonide/Formoterol 160/4.5 6 GM 60 PUFF INH IH ×2 (07:34→20:41)
[2019-03-15] MEDS: Tiotropium Bromide-Respimat 10 PUFF INH 2 PUFF IH (07:36)
[2019-03-15] MEDS: Ondansetron 4 MG/2 ML VIAL IVP (07:49)
[2019-03-15] MEDS: Normal Saline Flush 10 ML SYR IVP ×3 (07:49→09:58)
[2019-03-15] MEDS: Insulin Aspart 300 UNITS/3 ML PEN SC ×4 (08:31→21:31)
[2019-03-15] MEDS: levETIRAcetam 500 MG TAB PO ×2 (09:08→20:41)
[2019-03-15] MEDS: Finasteride 5 MG TAB PO (09:08)
[2019-03-15] MEDS: dilTIAZem CD 120 MG CAPCR 240 MG PO (09:08)
[2019-03-15] MEDS: Omeprazole 20 MG CAPCR 40 MG PO (09:08)
[2019-03-15] MEDS: Tamsulosin 0.4 MG CAPCR PO (09:09)
[2019-03-15] MEDS: Insulin Glargine 300 UNITS/3 ML PEN 15 UNITS SC ×2 (09:09→20:42)
[2019-03-15] MEDS: Sertraline 50 MG TAB 100 MG PO (09:09)
[2019-03-15] MEDS: Heparin 5,000 UNITS/ML VIAL 5000 UNITS SC ×2 (09:09→20:42)
[2019-03-15] MEDS: Metoprolol 12.5 MG TAB PO ×2 (09:09→20:41)
--- NOTE | 2019-03-15 10:19 | OTIE_ITS ---
Occupational Therapy Notes Inpatient Occupational Therapy Evaluation Date: 03/15/19 Referring Doctor: Yoselyn Hdz MD OT Orders: Non Urgent: Limited Ability; Eval and Treat Precautions: Fall, Standard PATIENT PROFILE/ADMITTING DIAGNOSIS: Pt is a 73 year old male who was admitted through the ER on 03/10/19 for a dx of SOB, vomiting, bloody urine, nausea, hypertensive emergency, LUISA, super imposed kidney disease. Past Medical History: Medical History Cerebrovascular disease (Chronic) CKD (chronic kidney disease) (Acute) COPD (chronic obstructive pulmonary disease) (Chronic) Diabetes (Chronic) Diabetic gastroenteropathy (Acute) GERD (gastroesophageal reflux disease) (Chronic) HTN (hypertension) (Chronic) Hyperlipidemia (Acute) Seizure (Acute) Urinary retention (Acute) Surgical History EGD - MAC (07/28/16) Social History/Home Situation: Pt states that he lives in a private home with his son. He is not currently driving because he has decided he is not safe to at this time. His son performs all the cooking. He has a tub/shower which he does have a seat in. He is unable to perform LE dressing and bathing efficiently but he does have adaptive equipment needed to perform this at home, or pt reports that he does not perform any LE bathing but has a long handled sponge if he wants to. He performs his functional mobility with a FWW and a cane depending on how he is feeling. Equipment owned/DME: grab bars, shower seat, cane, FWW, sock aid, grabber SUBJECTIVE: Pt was sitting in bed when OT arrived. He was agreeable to OT sess ion but reports that he just is not feeling well. He notes that he had HH services come into his home previously and he does not feel that he needs any (A) at this time. He states that his son (A) him as needed and he is just not feeling up to doing any more services than he has to. OBJECTIVE: General Observation: Arce, telemetry,pt is pleasant and answered questions appropriately. Mental Status: A&Ox3 Pain: no c/o pain ROM: RUE AROM WFL L UE AROM WFL STRENGTH: RUE Shoulder flexion 4/5, bicep 3+/5, tricep 3+/5, machined parts quality inspector is weak and symmetrical LUE Shoulder flexion 3/5, bicep 3+/5, tricep 3+/5, machined parts quality inspector is weak and symmetrical FUNCTIONAL MOBILITY/ADLS: BATHING Sitting on side of bed with min vc Bathing UE (I) with face and (B) UE Bathing LE Pt reports that he is unable to perform. He can reach to (B) knees and denies performance of this. Eating- Sitting in bed (I) with food to mouth translation, (I) with opening and closing containers and packages. BALANCE: Static sitting Normal Dynamic Sitting Good Static Standing Good Dynamic Standing NT SPECIAL TESTS: Daily Activity Limitations Standardized Measure [facility] AM -PAC ?6 clicks? Daily Activity Inpatient Short Form: Raw score: 17 INFORMED CONSENT/EDUCATION: Pt instructed in purpose of OT Consult and plan of care. ASSESSMENT: Patient is a 73-year-old male referred to occupational therapy services with diagnosis of SOB, vomitting, bloody urine, nausea, hypertensive energency, LUISA, superimposed kidney disease. Patient presents with clinical signs and symptoms consistent with dx, as demonstrated by the following impairment level findings: decreased functional activity tolerance, decreased gross and fine motor control of (B) UE, decreased performance of (B) LE ADLs, decreased functional (I) with mobility and community mobility. Impairments are contributing to the following functional limitations: Pt has difficulty performing the following functional activities including LE dressing and bathing, decreased functional activity tolerance, decreased functional mobility. OT does feel that pt would benefit from skilled OT services, although pt reports that he would like to hold on this at this time as he has his son to help him as needed. Pt refuses skilled OT services at this time. OT will plan to discharge pt at this time. Patient is assessed as a Low 89603 complexity based on the following: History: See Above Examination: See functional limitations as listed above Presentation: Evolving Decision Making: [facility] 17 GOALS N/A PLAN OF CARE/TREATMENT PLAN: N/A DISCHARGE RECOMMENDATIONS OT recommends that pt return home with HH services vs. SNF based on pts decreased functional activity tolerance and decreased performance of ADLs/IADLs. TREATMENT TIME/MINUTES/CODES 19447, 15 minutes (08:10) Bev Scanlon OTR/L [facility]
--- NOTE | 2019-03-15 12:33 | PT.INTREAT ---
Date of service: 03/15/19 Time of Service: 12:33 PT Notes Inpatient Physical Therapy Treatment Note [facility] Date: 03/15/2019 PRECAUTIONS: Fall SUBJECTIVE: Ed is agreeable to participating in PT, stating that he feels a little bit better than he did when he first arrived at the hospital. OBJECTIVE: PAIN: No complaints of pain. BED MOBILITY/TRANSFERS Supine-sit: I with HOB flat Sit-supine: I with HOB flat Sit-stand: SBA Stand-sit: SBA GAIT Assistive Device: FWW Weight bearing: Full Assist: CGA-SBA in a.m.; SBA in p.m. Distance: 75' x2 in a.m.; 100' in p.m. Deviation: Cues for increased stride length THEREX: Patient completed a lower extremity strengthening program, in a seated position in a.m., and in a supine position in p.m., as per flow sheet. STAIRS: Up 3?4 and 2?6 using one rail/SPC and a step to pattern with SBA, down 3?4 and 2?6 using B rails and a step to pattern with SBA. TOILETING: Patient was incontinent requiring total assist in both a.m. and p.m. ASSESSMENT: Patient tolerated session with complaints of increased fatigue with gait training. He was able to tolerate a progression in gait distance with FWW support and SBA, although requires constant cueing for increased stride length. Patient would benefit from continued gait and transfer training as well as strengthening for improved mobility and improved activity tolerance. PLAN: Continue with PTs POC TREATMENT CODE/TIME: Session 1: 30 minutes; [id number], [id number] Session 2: 25 minutes; [id number], [id number]
--- NOTE | 2019-03-15 15:33 | PGE_ITS ---
Date of Service Date of service: 03/15/19 Time of Service: 15:33 Assessment and Plan Assessment and plan (1) Hypertensive emergency: Status: Resolved Assessment and plan: Resolved. Blood pressures improved today, 121/86. No symptoms of orthostatic hypotension. Cozaar discontinued, not to be restarted. (2) Nausea: Status: Resolved Assessment and plan: No reports of nausea today. Continue PPI. (3) Seizure disorder: Status: Chronic Assessment and plan: Prior history of seizure disorder. On Keppra chronically. Has been evaluated by neurology, no change in antiepileptic regimen. (4) Urinary retention: Status: Chronic Assessment and plan: Continue intermittent catheterizations per outpatient schedule. No evidence of urinary tract infection. (5) Diabetes type 2, controlled: Status: Chronic Assessment and plan: Blood sugars have been around 200. Increase sliding scale to moderate dosing. Continue to monitor blood glucose at . Continue carbohydrate consistent diet. Qualifiers: Diabetes mellitus intermediate insulin use: with intermediate use Diabetes mellitus complication status: with unspecified complications Qualified Code(s): E11.8 - Type 2 diabetes mellitus with unspecified complications; Z79.4 - half-way (current) use of insulin (6) Paroxysmal atrial fibrillation: Status: Chronic Assessment and plan: Heart sounds regular at this time. Non-tachycardic. Continue Cardizem. He is no longer on Xarelto and aspirin, these were discontinued prior to his hospitalization from his outpatient provider. Continue to monitor heart rates. (7) Acute kidney injury superimposed on chronic kidney disease: Status: Acute Assessment and plan: Creatinine was at baseline yesterday. ARB discontinued, with no plans to resume. IV fluids discontinued yesterday. (8) DVT prophylaxis: Status: Acute Assessment and plan: Subcutaneous heparin. (9) Discharge planning issues: Status: Acute Assessment and plan: Is a full code. He is in agreement with a plan to discharge to a detention facility for rehab. He has been accepted at [facility] and rehab with plans to transfer tomorrow. This case was discussed with Dr. Hdz who is in agreement. Subjective Subjective Interval history since last seen: Mr. Panchal states that he is feeling better. He denies any dizziness or lightheaded sensation upon standing today. He has had no further episodes of tremors or nausea. He is eating and drinking and tolerating his diet. No vomiting or diarrhea. He does self cath approximately every 8 hours, he does have some incontinence as well. He reports mild shortness of breath with activity which is his baseline. No coughing or wheezing. He reports that he did not sleep well last night, he became disoriented in the night and was unpleasant to nursing staff according to his account. He has been working with physical therapy. The plan is for him to discharge to [facility] and rehab tomorrow. Exam Narrative Exam Narrative: General: Elderly man, sitting up in the chair, alert and oriented, no acute distress. He is pleasant and cooperative, answers questions appropriately. HEENT: Atraumatic, pupils equal and round, extraocular movements intact, mucous membranes moist. Cardiovascular: Heart has regular rate and rhythm, no murmur appreciated. Non- tachycardic. Respiratory: Respirations appear even and unlabored, lung sounds clear to auscultation bilaterally. GI: Normoactive bowel sounds x4 quadrants, abdomen soft, nontender on palpation, no masses appreciated. Extremities: Trace pretibial pitting edema to left lower extremity, teds on bilaterally. Pedal pulses palpable bilaterally. Objective Objective Clinical Data: Vital Signs Temperature 36.6 C 03/15/19 07:50 Temperature Source Tympanic 03/15/19 07:50 Pulse 71 03/15/19 11:00 Pulse Rhythm Regular 03/15/19 09:27 Respiratory Rate 19 03/15/19 07:50 Respiratory Effort Non-Labored 03/15/19 09:27 Respiratory Depth Normal 03/15/19 09:27 Respiratory Pattern Normal 03/15/19 09:27 Blood Pressure 152/66 H 03/15/19 11:00 Blood Pressure Position Sitting 03/10/19 14:40 Pulse Oximetry 95 03/15/19 07:50 Oxygen Delivery Method Room Air 03/15/19 07:50 Oxygen Flow Rate 0 03/15/19 07:50 Pain Level 0 03/15/19 07:50 Comment 03/14/19 22:22 Intake & Output 03/14/19 03/15/19 03/15/19 23:59 11:59 23:59 Intake Total 1120 / 1360 250 / 370 120 / 370 Output Total 700 / 2350 500 / 950 450 / 950 Balance 420 / -990 -250 / -580 -330 / -580 Intake: IV 1000 / 1000 10 / 10 Oral 120 / 360 240 / 360 120 / 360 Output: Urine 700 / 2350 500 / 950 450 / 950 Other: Urine Color Yellow Yellow Yellow Urine Appearance Clear Clear Cloudy Purulent Laboratory Results WBC 7.05 k/cumm (4.4-10.8) 03/14/19 06:50 RBC 3.82 m/cumm (4.50-6.00) L 03/14/19 06:50 Hgb 11.0 g/dL (13.5-17.5) L 03/14/19 06:50 Hct 33.5 % (40.0-50.0) L 03/14/19 06:50 MCV 87.7 fL (80-95) 03/14/19 06:50 MCH 28.8 pg (27.0-33.0) 03/14/19 06:50 MCHC 32.8 g/dL (32.0-36.0) 03/14/19 06:50 RDW 13.9 % (11.8-14.1) 03/14/19 06:50 Plt Count 225 x1000/uL (130-400) 03/14/19 06:50 MPV 11.1 fL (8.0-11.0) H 03/14/19 06:50 Immature Gran % 0.1 03/13/19 07:05 Neutrophils % 66.0 03/13/19 07:05 Lymphocytes % 16.1 03/13/19 07:05 Monocytes % 6.3 03/13/19 07:05 Eosinophils % 11.2 03/13/19 07:05 Basophils % 0.3 03/13/19 07:05 Absolute Neutrophils 5.07 k/cumm (1.2-6.7) 03/13/19 07:05 Absolute Lymphocytes 1.24 k/cumm (1.2-3.4) 03/13/19 07:05 Absolute Monocytes 0.48 k/cumm (0.11-0.7) 03/13/19 07:05 Absolute Eosinophils 0.86 k/cumm (0.0-0.7) H 03/13/19 07:05 Absolute Basophils 0.02 k/cumm (0.0-0.2) 03/13/19 07:05 PT 10.4 sec (9.3-11.0) 03/10/19 15:00 INR 1.0 (0.9-1.1) 03/10/19 15:00 Sodium 140 mmol/L (136-145) 03/14/19 06:50 Potassium 4.3 mmol/L (3.5-5.1) 03/14/19 06:50 Chloride 106 mmol/L (98-107) 03/14/19 06:50 Carbon Dioxide 26.7 mmol/L (21.0-32.0) 03/14/19 06:50 Anion Gap 7.3 mmol/L (3-11) 03/14/19 06:50 BUN 25 mg/dL (7-18) H 03/14/19 06:50 Creatinine 1.83 mg/dL (0.70-1.30) H 03/14/19 06:50 Estimated GFR/1.73 m2 36.37 (mL/min/1.73m2) 03/14/19 06:50 Glucose 237 mg/dL (70-100) H 03/14/19 06:50 Calcium 8.2 mg/dL (8.5-10.1) L 03/14/19 06:50 Magnesium 1.7 mg/dL (1.8-2.4) L 03/14/19 06:50 Total Bilirubin 0.4 mg/dL (0.2-1.0) 03/10/19 15:00 AST 16 U/L (15-37) 03/10/19 15:00 ALT 20 U/L (16-63) 03/10/19 15:00 Alkaline Phosphatase 119 U/L (46-116) H 03/10/19 15:00 Troponin I < 0.05 ng/mL (0.00-0.06) 03/12/19 11:55 Total Protein 6.6 g/dL (6.4-8.2) 03/10/19 15:00 Albumin 3.0 g/dL (3.4-5.0) L 03/10/19 15:00 Urine Color Yellow (Yellow) 03/11/19 18:23 Urine Clarity Cloudy (Clear) 03/11/19 18:23 Urine pH 5.5 (5-8) 03/11/19 18:23 Ur Specific [place] >= 1.030 (1.005-1.025) H 03/11/19 18:23 Urine Protein >=300 mg/dL (Negative) H 03/11/19 18:23 Urine Ketones Negative mg/dL (Negative) 03/11/19 18:23 Urine Blood Large (Negative) H 03/11/19 18:23 Urine Nitrite Negative (Negative) 03/11/19 18:23 Urine Bilirubin Negative (Negative) 03/11/19 18:23 Urine Urobilinogen 0.2 EU/dL (Up TO 0.2) 03/11/19 18:23 Ur Leukocyte Esterase Negative (Negative) 03/11/19 18:23 Urine RBC Negative HPF (0-2) 03/11/19 18:23 Urine WBC >50 HPF (0-5) H 03/11/19 18:23 Ur Epithelial Cells Negative HPF (Negative) 03/11/19 18:23 Urine Crystals Negative HPF (Negative) 03/11/19 18:23 Urine Bacteria Many HPF (Negative) 03/11/19 18:23 Urine Casts Negative LPF (Negative) 03/11/19 18:23 Urine Mucus Negative (Negative) 03/11/19 18:23 Urine Other Negative (Negative) 03/10/19 16:57 Ur Culture Indicated? Yes 03/11/19 18:23 Urine Glucose Negative mg/dL (Negative) 03/11/19 18:23
--- NOTE | 2019-03-15 16:45 | PDOC.CMPRO ---
Care Management Progress Note S/O: Ed continues to be closely monitored. He was sitting up in his chair, pleasant in interaction. He is agreeable to SNF rehab and accepted a bed at [facility]-anticipate he will be ready as soon as tomorrow per MD. CM continues to follow. A; Doroteo is a 73 year old man admitted on 03/11/19 with hypertensive emergency P: Ed will discharge to [facility] for SNF prior to returning home. CM will continue to support patient, family and discharge planning needs.
[2019-03-15] MEDS: Atorvastatin 40 MG TAB 80 MG PO (21:30)
[2019-03-16] VITALS: PULSE 70
[2019-03-16 06:58] LABS: Magnesium 1.8 mg/dL (1.8-2.4)
[2019-03-16 06:59] VITALS: PULSE 63
[2019-03-16] MEDS: Budesonide/Formoterol 160/4.5 6 GM 60 PUFF INH IH (07:39)
[2019-03-16] MEDS: Tiotropium Bromide-Respimat 10 PUFF INH 2 PUFF IH (07:39)
[2019-03-16 07:40] VITALS: O2SAT 94
[2019-03-16] MEDS: Sertraline 50 MG TAB 100 MG PO (07:59)
[2019-03-16] MEDS: Metoprolol 12.5 MG TAB PO (07:59)
[2019-03-16] MEDS: dilTIAZem CD 120 MG CAPCR 240 MG PO (07:59)
[2019-03-16] MEDS: levETIRAcetam 500 MG TAB PO (07:59)
[2019-03-16] MEDS: Finasteride 5 MG TAB PO (07:59)
[2019-03-16] MEDS: Omeprazole 20 MG CAPCR 40 MG PO (08:00)
[2019-03-16] MEDS: Heparin 5,000 UNITS/ML VIAL 5000 UNITS SC (08:00)
[2019-03-16] MEDS: Insulin Glargine 300 UNITS/3 ML PEN 15 UNITS SC (08:00)
[2019-03-16] MEDS: Tamsulosin 0.4 MG CAPCR PO (08:00)
[2019-03-16] MEDS: Insulin Aspart 300 UNITS/3 ML PEN SC (08:00)
[2019-03-16 08:17] VITALS: BP 157/70; PULSE 66; RESP 17; TEMP 36.7; O2SAT 94
[2019-03-16 09:45] VITALS: PULSE 70
--- NOTE | 2019-03-16 10:25 | W.PM.DS.N ---
Date of service: 03/16/19 Time of Service: 10:25 DS: Diagnosis Discharge Diagnosis (1) Hypertensive emergency: Status: Resolved (2) Nausea: Status: Resolved (3) Seizure disorder: Status: Chronic (4) Urinary retention: Status: Chronic (5) Diabetes type 2, controlled: Status: Chronic (6) Paroxysmal atrial fibrillation: Status: Chronic (7) Acute kidney injury superimposed on chronic kidney disease: Status: Acute (8) DVT prophylaxis: Status: Acute (9) Discharge planning issues: Status: Acute Discharge Plan Disposition Patient Disposition: SNF (LEVEL 1) [facility] Condition: Improving Discharge Details Chief Complaint: AMS/LOC Reason For Visit: NAUSEA Admit Date/Time: 03/11/19 16:29 Admit Provider: Dante Iglesias Attending Provider: Dante Iglesias Primary Care Provider: Isak Magana ED Provider: Kwadwo Ambrosio Hospital Course Hospital Course: Mr. Panchal is a very pleasant 73-year-old man with past medical history significant for seizure disorder on Keppra chronically, chronic kidney disease, diabetes type 2, urinary retention with intermittent catheterizations, COPD and paroxysmal atrial fibrillation who presented to the emergency department on 03/10/2019 with reports of tremors and nausea. In the emergency department, he had a CT head which did not show an acute process, he had a chest x-ray which showed no focal infiltrate, labs did not show leukocytosis. His troponin was 0.08, indeterminant initially. His troponin went up to 0.10 and then back down to nondetectable range. Due to the initially elevated troponin as well as the seizure history and paroxysmal atrial fibrillation. He was admitted to the [facility] floor for further observation on telemetry and management. There was concern that this could represent seizures. He had an EEG and neurology was consulted. His EEG did not show any seizure activity. Neurology did not recommend changing his Keppra dose. Neurology recommended long term facility placement for ongoing monitoring. Mr. Panchal was hypertensive upon admission, his antihypertensive regimen was adjusted. He went on to have some orthostatic hypotension with symptoms of dizziness and lightheaded sensation. His regimen was adjusted further. By the time of discharge, his blood pressure is 157/70 and he has no further symptoms of orthostatic hypotension. He worked with physical therapy. Recommendations from physical therapy included continued use of a front wheeled walker to reduce fall risk and increase activity tolerance. Also recommended was continued gait and transfer training as well as strengthening for improved mobility and activity tolerance. In regard to his diabetes, his regimen was adjusted while he was in the hospital his blood sugars have primarily been in the 200s. His mealtime insulin was added back in on the day of discharge. He is at a lower basal insulin dose than he was at home. This may need adjustment. He will require ongoing monitoring of blood glucose at with adjustments as needed. He has been accepted at [facility] and will transfer there today. Home Meds and New Rx's Prescriptions: New Novolog Flexpen U-100 Insulin 100 unit/mL (3 mL) Insulin Pen 0 units subcut AC & HS Qty: 0 RF: 0 metoprolol tartrate 25 mg Tablet 12.5 mg PO BID Qty: 0 RF: 0 Lantus Solostar U-100 Insulin 100 unit/mL (3 mL) Insulin Pen 15 units subcut BID Qty: 0 RF: 0 Spiriva Respimat 2.5 mcg/actuation Mist 2 puff inhalation DAILY Qty: 0 RF: 0 Continued omeprazole 40 MG capsule,delayed release(DR/EC) 40 mg PO DAILY Qty: 60 RF: 3 multivitamin 1 EACH tablet 1 tab PO DAILY RF: 0 sertraline 100 MG tablet 100 mg PO DAILY RF: 0 atorvastatin [Lipitor] 40 MG tablet 80 mg PO HS RF: 0 levetiracetam [Keppra] 500 MG tablet 500 mg PO BID RF: 0 Trulicity 0.75 mg/0.5 mL Pen Injector See Rx Instructions .ROUTE .COMPLEX RF: 0 fluticasone propion-salmeterol [Advair Diskus] 250-50 mcg/dose Blister With Device 1 inh INHALATION BID RF: 0 diltiazem HCl [DILT-XR] 240 mg Capsule,Ext.Rel 24h Degradable 240 mg PO DAILY RF: 0 melatonin 3 mg Tablet 3 mg PO HS PRNRF: 0 albuterol sulfate [ProAir HFA] 90 mcg/actuation Hfa Aerosol Inhaler 2 puff INHALATION Q6H PRNRF: 0 finasteride 5 mg Tablet 5 mg PO DAILY RF: 0 tamsulosin 0.4 MG capsule 0.8 mg PO DAILY Qty: 60 RF: 0 Changed acetaminophen 325 mg Tablet 650 mg PO Q6H PRN PRNQty: 0 RF: 0 Novolog Flexpen U-100 Insulin 300 UNITS/3 ML insulin pen 10 unit SQ AC Qty: 0 RF: 0 Discontinued Novolog Flexpen U-100 Insulin 300 UNITS/3 ML insulin pen 0 units Sub-Q 0800,1200,1700 RF: 0 Basaglar KwikPen U-100 Insulin 100 unit/mL (3 mL) Insulin Pen 60 unit SUBCUT BID RF: 0 losartan 50 mg Tablet 50 mg PO DAILY RF: 0 hydrochlorothiazide 25 mg Tablet 25 mg PO DAILY RF: 0 Discharge Instructions Instructions: Hypotension (DC) Stand Alone Forms: Nursing Discharge Form Referrals: Isak Magana [Primary Care Provider] - Activity:: Activity as Tolerated Equipment/Supplies:: No Equipment Needed Diet:: Carb Counting Discharge Orders Discharge Orders: Discharge Order (Routine); Ordered 03/16/19 Ordered By: Charlotte Weeks DS: Summary Status at Discharge Functional status at discharge: uses cane/walker Overall status at discharge: patient is progressing back to baseline Mental Status: mental status grossly normal Speech and Movement: speech and movement normal Mood: congruent mood Affect: normal affect Exam Narrative Exam Narrative: General: Elderly man, sitting up in the chair, alert and oriented, no acute distress. He is pleasant and cooperative, answers questions appropriately. HEENT: Atraumatic, pupils equal and round, extraocular movements intact, mucous membranes moist. Cardiovascular: Heart has regular rate and rhythm, no murmur appreciated. Non-tachycardic. Respiratory: Respirations appear even and unlabored, lung sounds clear to auscultation bilaterally. GI: Normoactive bowel sounds x4 quadrants, abdomen soft, nontender on palpation, no masses appreciated. Extremities: No significant lower extremity edema, teds on bilaterally. Pedal pulses palpable bilaterally. Psych Mental Status: mental status grossly normal Speech and Movement: speech and movement normal Mood: congruent mood Affect: normal affect DS: Data Vitals/I&O Vitals and I&O: Vital Signs Temperature 36.7 C 03/16/19 08:17 Temperature Source Tympanic 03/16/19 08:17 Pulse 70 03/16/19 09:45 Pulse Rhythm Regular 03/16/19 08:07 Respiratory Rate 17 03/16/19 08:17 Respiratory Effort Non-Labored 03/16/19 08:07 Respiratory Depth Normal 03/16/19 08:07 Respiratory Pattern Normal 03/16/19 08:07 Blood Pressure 157/70 H 03/16/19 08:17 Blood Pressure Position Sitting 03/10/19 14:40 Pulse Oximetry 94 L 03/16/19 08:17 Oxygen Delivery Method Room Air 03/16/19 08:17 Oxygen Flow Rate 0 03/16/19 08:17 Pain Level 0 03/16/19 08:17 Comment 03/14/19 22:22 Intake & Output 03/15/19 03/15/19 03/16/19 11:59 23:59 11:59 Intake Total 250 / 670 420 / 670 360 / 360 Output Total 600 / 1650 1050 / 1650 650 / 650 Balance -350 / -980 -630 / -980 -290 / -290 Intake: IV Oral 240 / 660 420 / 660 360 / 360 Output: Urine 600 / 1650 1050 / 1650 650 / 650 Other: Urine Color Straw Light Kirstin Light Kirstin Urine Appearance Cloudy Cloudy Cloudy Urine Odor Strong Voiding Methods Incontinent Data Completed and Pending Completed studies during hospitalization [Text1]: 03/10/19: EXAM: CT HEAD WO CLINICAL HISTORY: vomiting, ? syncope COMPARISON: CT HEAD WO from 12/03/2018 FINDINGS: The ventricles and sulci are consistent with the patient's age. There is small vessel ischemic disease. There are bilateral lacunar infarcts present. No acute intracranial hemorrhage, midline shift or mass effect is identified. The ventricles are intact. The basilar cisterns are patent. The visualized paranasal sinuses and mastoid air cells are well pneumatized. The calvarium is intact. IMPRESSION: No acute intracranial process. The findings were discussed with the Emergency Department on the date of the examination. EXAM: XR CHEST 2V PA LATERAL INDICATION: ? syncope, vomiting. COMPARISON: XR PORTABLE CHEST AP from 12/22/2018 TECHNIQUE: 2D digital imaging was performed. AP and lateral views FINDINGS: Heart size is within normal limits. Lungs appear clear. No infiltrate, effusion or pulmonary edema is seen. There is no evidence of pneumothorax or thoracic compression fracture. Degenerative changes are seen in the spine. IMPRESSION: No acute abnormality. Labs on day of discharge: Labs from last 24 hours 03/16/19 06:15 Magnesium 1.8 PFSH Medical History Cerebrovascular disease (Chronic) CVA CKD (chronic kidney disease) (Acute) COPD (chronic obstructive pulmonary disease) (Chronic) Diabetes (Chronic) Diabetic gastroenteropathy (Acute) GERD (gastroesophageal reflux disease) (Chronic) HTN (hypertension) (Chronic) Hyperlipidemia (Acute) Seizure (Acute) Urinary retention (Acute) Surgical History EGD - MAC (07/28/16) S/P insertion of penile implant (Acute) S/P prostatectomy (Acute) Social History Smoking/Tobacco Use Status: Former Tobacco Use Alcohol Intake: never Drug use: Never Substance use type: does not use Household members: children 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
--- NOTE | 2019-03-16 16:31 | PDOC.CMDIS ---
- If Service Date Differs Date of service: 03/16/19 Time of Service: 16:31 LACE Index Scoring Tool - Questions: Length of Stay (in days): 4 - 6 Acuity (Admit via E.D.?): Yes Comorbidities: Cerebrovascular Disease, Diabetes w/o Complication, Chronic Pulmonary Disease E.D. Visits: 3 - Answers: Total Score: 15 Risk of Readmission: High Risk Care Management Discharge Reason for Hospitalization: hypertensive emergency Discharge Plan: Ed will be discharged to [facility] for short term rehab before returning home. He will follow the discharge plan formulated at [facility]. Patient/Family Education Needs: Discharge plan, limitations, Ask Me Three. Services Needed at Discharge: Retirement Facility
--- NOTE | 2019-03-17 08:18 | INDS_ITS ---
Date of service: 03/17/19 Time of Service: 08:18 PT Notes Inpatient Physical Therapy Discharge Summary Dates: 03/17/2019 Dates of Service: 03/14/2019 through 03/16/2019 This is a clinical summary of care provided on the duration of dates listed above. No charge was made in the completion of this documentation. Referring Doctor: Yoselyn Hdz MD PT Orders: PT CONSULT: Limited ability Precautions: Fall. Standard. Activity as tolerated. Patient Profile/Admitting Diagnosis: Patient is a 73-year-old male with past medical history significant for cerebrovascular disease, COPD, and CKD who presented to the ED on 03/10/2019 with chief presentation on shortness of breath, vomitting, bloody urine, and feelings of being queasy. Patient is nausea, hypertensive emergency, and acute kidney injury superimprosed on chronic kidney disease. PMHX: Medical History Cerebrovascular disease (Chronic) CKD (chronic kidney disease) (Acute) COPD (chronic obstructive pulmonary disease) (Chronic) Diabetes (Chronic) Diabetic gastroenteropathy (Acute) GERD (gastroesophageal reflux disease) (Chronic) HTN (hypertension) (Chronic) Hyperlipidemia (Acute) Seizure (Acute) Urinary retention (Acute) Surgical History EGD - MAC (07/28/16) Social History/Home Situation: Patient lives with son Hector in a split level home with 12 steps to enter the first 6 steps have a rail on the right going up and leads to a landing and the second batch of stairs has rails on both sides leading onto entrance of house. He reports that he used to receive Meals on Wheels but his son has been able to manage preparing his meals. Patient is alone during the day as the son works full-time. He is able to manage in-house ambulation using his 4 wheeled walker. He does not go out of the house without assistance. Son takes care of laundry, grocery shopping, and manager diesel. Equipment Owned/DME: 4WW, FWW, SC, shower seat Subjective: NT Objective: General Observation: NT Mental Status: NT Pain: 0/10 ROM: Right Upper Extremity: Shoulder Flexion WFL. Shoulder abduction WFL. Elbow fl exion WFL. Wrist flexion WFL. Functional opening and closing of hand WFL. Left Upper Extremity: Shoulder Flexion allows up to about 100 degrees. Shoulder abduction allows up to about 100 degrees. Elbow flexion WFL. Wrist flexion WFL. Functional opening and closing of hand WFL. Right Lower Extremity: Hip flexion WFL. Hip abduction WFL. Knee flexion WFL. Ankle dorsiflexion WFL. Ankle plantarflexion WFL. Left Lower Extremity: Hip flexion WFL. Hip abduction WFL. Knee flexion WFL. Ankle dorsiflexion WFL. Ankle plantarflexion WFL. Strength: Right Upper Extremity: Shoulder flexors 4/5. Shoulder abductors 4/5. Elbow flexors 4/5. Elbow extensors 4/5. Hiv/Aids Care Nurse strong. Left Upper Extremity: Shoulder flexors 3-/5. Shoulder abductors 4/5. Elbow flexors 4/5. Elbow extensors 4/5. Hiv/Aids Care Nurse strong. Right Lower Extremity: Hip flexors 4/5. Hip abductors 4/5. Knee flexors 4/5. Knee extensors 4/5. Ankle dorsiflexors 4/5. Ankle plantarflexors 4/5. Left Lower Extremity:Hip flexors 4-/5. Hip abductors 4-/5. Resisted gravity- eliminated hip ER less than on the R side. Knee flexors 4-/5. Knee extensors 4- /5. Ankle dorsiflexors 4-/5. Ankle plantarflexors 4-/5. Sensation: Intact as to pain and pressure on bilateral lower extremities. Bed Mobility/Transfers: Rolling independent Supine to sit independent Sit to supine independent Sit to stand SBA Stand to sit SBA Bed to chair SBA Chair to bed SBA Gait: Patient is able to tolerate level surface ambulation for 100 feet using front-wheeled walker with CGA of PT and wheelchair follow of Nurse Pacheco patient demonstrating mild breathlessness and reporting mild breathlessness and fatigue. Decreased gait velocity observed decreased step height and length observed. Minimal verbal cues were given for walker management, coordinated breathing exercises, and postural alignment. Patient also managed up and down three 4-inch steps and two 6-inch steps with one hand holding onot rail and another hand using SPC with step-to gait pattern. Balance: Static Sitting: Normal Dynamic Sitting: Normal Static Standing: Fair Dynamic Standing: Fair continues to Assessment: Patient is a 73-year-old male with past medical history significant for cerebrovascular disease, COPD, and CKD who presented to the ED on 03/10/2019 with chief presentation on shortness of breath, vomitting, bloody urine, and feelings of being queasy. Patient is diagnosed with nausea, hypertensive emergency, and acute kidney injury superimprosed on chronic kidney disease. Patient is alone during the day and therefore would need to be independent with all transfer and ambulation task with FWW in order to reduce fall risk and increase activity tolerance MRADLs. Patient continues to present with clinical signs and symptoms consistent with current/admitting diagnoses that have resulted to mobility limitations, gait instability, generalized weakness, and impairment of motor control as demonstrated by the following impairment level findings: 1. Decreased strength to B LE major muscle groups 2. Impaired standing balance 3. Impaired activity tolerance, breathlessness with walking Impairments continue to contribute to the following functional limitations: 1. Increased dependence with transfers 2. Inability to safely ambulate without assistive device and physical assistance 3. Increase completion time for mobility ADL performance 4. Increased fall risk 5. Inability to negotiate steps alone safely Goals: Goals X1 week 1. Supine-Sit independent MET 2. Sit-Supine independent MET 3. Sit-Stand independent MET 4. Stand-Sit independent MET 5. Bed-Chair independent MET 6. Chair-Bed independent MET 7. Independent gait on level surface with use of least restrictive device for at least 200 feet without report of pain nor dyspnea MET 8. Independent stair negotiation while holding onto bilateral rails for at least 10 steps without report of pain nor dyspnea MET 9. Independent with home exercise program MET 10. Good static and dynamic standing balance/tolerance MET DISCHARGE RECOMMENDATIONS: Patient will benefit from continued use of a front wheeled walker to reduce fall risk and increase activity tolerance at home. Patient will benefit from home health PT services in order to progress mobility level using least restrictive assistive ambulatory device, assess home safety, identify additional equipment needs, and establish a functional maintenance program that will increase ability of patient to remain at home. TREATMENT CODE/TIME: NC. Thank you very much for this referral. Debra Quezada PT, DPT, CLT [facility]
== END 2019-03-16 11:15 | disposition skilled nursing facility (03) | DRG 392 ==
LOC: ER 19:10 → MS 03-11 07:45
PROVIDERS: Nurse Practitioner; Admitting Provider General Practice; Emergency Provider Emergency Medicine; PCP Family Medicine; Visit Provider Internal Medicine
DX: R11.0 Nausea (principal); I16.1 Hypertensive emergency; N17.9 Acute kidney failure, unspecified; Z16.11 Resistance to penicillins; I48.0 Paroxysmal atrial fibrillation; R79.89 Other specified abnormal findings of blood chemistry; G40.909 Epilepsy, unspecified, not intractable, without status epilepticus; I95.1 Orthostatic hypotension; E11.22 Type 2 diabetes mellitus with diabetic chronic kidney disease; N18.9 Chronic kidney disease, unspecified; R82.71 Bacteriuria; B96.1 Klebsiella pneumoniae [K. pneumoniae] as the cause of diseases classified elsewhere; B96.20 Unspecified Escherichia coli [E. coli] as the cause of diseases classified elsewhere; I12.9 Hypertensive chronic kidney disease with stage 1 through stage 4 chronic kidney disease, or unspecified chronic kidney disease; R33.9 Retention of urine, unspecified; J44.9 Chronic obstructive pulmonary disease, unspecified; Z79.4 Long term (current) use of insulin; K21.9 Gastro-esophageal reflux disease without esophagitis; E78.5 Hyperlipidemia, unspecified; Z71.3 Dietary counseling and surveillance
CPT/HCPCS: 36415; 51701; 80048; 80053; 85027; 87077; 93005; 94640; 95819; 97110; 97162; 97530; 97535; 99222; 99223; 99232; 99239; 99285; 70450; 71046; 81003; 81015; 83735; 84484; 85025; 85610; 87086; 87186; 93010; 99284; G0378; J1644; J2405; J3490

== ENCOUNTER → 2019-03-13 14:49 | Outpatient (BNVA) | payer MEDICARE, SELFPAY | PROVIDERS: PCP Family Medicine; Referring Provider Family Medicine; Visit Provider Psychiatry & Neurology Neurology | DX: R69 Illness, unspecified (principal) ==

== ENCOUNTER 2019-03-30 08:04 | Outpatient (REF) | payer MEDICARE, SELFPAY ==
[2019-03-30 11:16] LABS: Bilirubin Negative (Negative); Blood Large (Negative); Clarity Cloudy (Clear); Glucose Negative (Negative); Ketones Negative (Negative); Leukocyte Esterase Trace (Negative); Nitrite Negative (Negative); Specific Gravity >= 1.030 (1.005-1.025); Urobilinogen 0.2 EU/dL (Up TO 0.2); pH 5.5 (5-8)
[2019-03-30 11:23] LABS: Bacteria Packed HPF (Negative); C & S Indicated? Yes; RBC >50 HPF (0-2); WBC >50 HPF (0-5)
== END 2019-03-30 08:24 ==
LOC: LBN 08:04
PROVIDERS: PCP Family Medicine; Visit Provider Nurse Practitioner Adult Health
DX: R31.9 Hematuria, unspecified (principal)
CPT/HCPCS: 87077; 81003; 81015; 87086; 87186

== ENCOUNTER 2019-04-12 09:24 | Outpatient (REF) | payer MEDICARE, SELFPAY ==
[2019-04-12 10:17] LABS: Bilirubin Negative (Negative); Blood Small (Negative); Clarity Clear (Clear); Glucose Negative (Negative); Ketones Negative (Negative); Leukocyte Esterase Negative (Negative); Nitrite Negative (Negative); Specific Gravity 1.025 (1.005-1.025); Urobilinogen 0.2 EU/dL (Up TO 0.2)
[2019-04-12 10:31] LABS: Bacteria Negative HPF (Negative); C & S Indicated? Yes; Casts Negative LPF (Negative); Crystals Negative HPF (Negative); Epithelial Cells Rare HPF (Negative); Mucus Negative (Negative)
== END 2019-04-12 09:44 ==
LOC: LBN 09:24
PROVIDERS: PCP Family Medicine; Visit Provider Nurse Practitioner Adult Health
DX: N39.0 Urinary tract infection, site not specified (principal)
CPT/HCPCS: 81003; 81015; 87086

== ENCOUNTER → 2019-05-18 15:09 | Outpatient (BNVA) | payer MEDICARE, SELFPAY | PROVIDERS: PCP Family Medicine; Referring Provider Family Medicine; Visit Provider Psychiatry & Neurology Neurology | DX: R29.2 Abnormal reflex (principal); R25.1 Tremor, unspecified | CPT/HCPCS: 99213 ==

== ENCOUNTER 2019-05-24 01:24 | Outpatient (CLI) | payer MEDICARE, SELFPAY ==
--- NOTE | 2019-05-24 15:18 | DI.MRI_ITS ---
EXAM: MR THORACIC SPINE WO CLINICAL HISTORY: ?MYELOPATHY; R29.2 ABNORMAL B/L BABINSKI REFLEX. TECHNIQUE: Multiplanar multisequence MRI was performed. COMPARISON: No exams were available for comparison FINDINGS: The cord signal is normal. There is no evidence of compression fractures. There are endplate osteop hytes projecting anteriorly. There is minimal disc bulging but no significant encroachment into the central canal or neural foramen. There are perineural root sleeve cysts seen bilaterally at multiple levels. IMPRESSION: Multiple bilateral perineural root sleeve cysts.
== END 2019-05-24 01:44 ==
PROVIDERS: PCP Family Medicine; Visit Provider Psychiatry & Neurology Neurology
DX: R29.2 Abnormal reflex (principal); G54.8 Other nerve root and plexus disorders
CPT/HCPCS: 72146

== ENCOUNTER 2019-06-20 19:56 | Outpatient (REF) | payer MEDICARE, SELFPAY ==
[2019-06-20 19:02] LABS: Anion Gap 10.2 mmol/L (3-11); BUN 16 mg/dL (7-18); CO2 28.8 mmol/L (21.0-32.0); CREATININE 2.16 mg/dL (0.70-1.30); Calcium 7.8 mg/dL (8.5-10.1); Chloride 106 mmol/L (98-107); Estimated GFR 30.03 (mL/min/1.73m2); Glucose 240 mg/dL (74-106); Magnesium 1.6 mg/dL (1.8-2.4); Sodium 145 mmol/L (136-145)
== END 2019-06-20 20:16 ==
LOC: NCHCN 19:56
PROVIDERS: PCP Family Medicine; Visit Provider Family Medicine
DX: N18.1 Chronic kidney disease, stage 1 (principal); I49.3 Ventricular premature depolarization
CPT/HCPCS: 80048; 83735

== ENCOUNTER → 2019-07-10 12:27 | Outpatient (BNVA) | payer MEDICARE, SELFPAY | PROVIDERS: PCP Family Medicine; Referring Provider Family Medicine; Visit Provider Psychiatry & Neurology Neurology | DX: R29.2 Abnormal reflex (principal); R25.1 Tremor, unspecified; F01.50 Vascular dementia, unspecified severity, without behavioral disturbance, psychotic disturbance, mood disturbance, and anxiety ==

== ENCOUNTER 2019-08-28 05:44 | Emergency (ER) | payer MEDICARE, SELFPAY ==
[2019-08-28 05:44] VITALS: BP 160/77; PULSE 91; RESP 16; TEMP 36.8; O2SAT 93
--- NOTE | 2019-08-28 05:54 | ED.GENADUL_ITS ---
Discharge Plan Disposition Patient Disposition: HOME Condition: Stable Discharge Details Chief Complaint: Seizure Clinical Impression: Seizure, Hypokalemia Primary Care Provider: Isak Magana ED Provider: Timbo Taylor [place] Meds and New Rx's Prescriptions: New potassium chloride 20 mEq tablet,ER particles/crystals 20 meq PO BID Qty: 20 RF: 0 Continued magnesium oxide 400 mg magnesium tablet 400 mg PO DAILY RF: 0 Xarelto 15 mg tablet 15 mg PO DAILY RF: 0 omeprazole 40 MG capsule,delayed release(DR/EC) 40 mg PO DAILY Qty: 60 RF: 3 multivitamin 1 EACH tablet 1 tab PO DAILY RF: 0 sertraline 100 MG tablet 100 mg PO DAILY RF: 0 atorvastatin [Lipitor] 40 MG tablet 80 mg PO HS RF: 0 levetiracetam [Keppra] 500 MG tablet 500 mg PO BID RF: 0 insulin aspart U-100 [Novolog Flexpen U-100 Insulin] 100 unit/mL (3 mL) Insulin Pen 0 units subcut AC & HS Qty: 0 RF: 0 Lantus Solostar U-100 Insulin 100 unit/mL (3 mL) Insulin Pen 15 units subcut BID Qty: 0 RF: 0 Spiriva Respimat 2.5 mcg/actuation Mist 2 puff inhalation DAILY Qty: 0 RF: 0 insulin aspart U-100 [Novolog Flexpen U-100 Insulin] 300 UNITS/3 ML insulin pen 10 unit SQ AC Qty: 0 RF: 0 metoprolol tartrate 25 mg tablet 12.5 mg PO DAILY RF: 0 fluticasone propion-salmeterol [Advair Diskus] 250-50 mcg/dose Blister With Device 1 inh INHALATION BID RF: 0 diltiazem HCl [DILT-XR] 240 mg Capsule,Ext.Rel 24h Degradable 240 mg PO DAILY RF: 0 melatonin 3 mg Tablet 3 mg PO HS PRNRF: 0 albuterol sulfate [ProAir HFA] 90 mcg/actuation Hfa Aerosol Inhaler 2 puff INHALATION Q6H PRNRF: 0 finasteride 5 mg Tablet 5 mg PO DAILY RF: 0 tamsulosin 0.4 MG capsule 0.8 mg PO DAILY Qty: 60 RF: 0 Discharge Instructions Instructions: Hypokalemia (ED), Recurrent Seizures in Adults (ED) Additional Instructions: you likely had a seizure follow up with your primary care provider within a week. 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 When EMS arrived he was no longer seizing but was not alert or talking. He arrives oriented to name and place but not year. HE has no complaints on exam other than not knowing what happened. HE denies headache, fevers, chills, chest pain, dyspnea, vomit. He has no focal motor or sensation deficits on exam with clear speech. Given possible seizure will obtain electrolytes, UA, and ct head. No infectious symptoms sodoubt entities such as pna, early learning teacher infection or covid19. ct shows no acute findings. Labs show K of 2.5 otherwise no acute changes, UA has bacteria otherwise unremarkable, has no symptoms so likely asymptomatic bacteriuria, will wait to see culture results. Patient does not want to stay in the hospital. I spoke with his son Hector who lives with him and states his father has a lot of problems with hospitalizations and becomes anxious. HE feels comfortable bringing him home and advised to have him f/u with his pcp this week for recheck of his K. Return precautions given Differential Diagnosis Differential Diagnosis: seizure, syncope, electrolyte abnormality Medical Records Medical records reviewed: Yes I reviewed the patient's medical records. Imaging Data Radiologic Study: Attestation: I personally reviewed and interpreted this imaging study as follows: Imaging: X-Ray Radiologist's impression: IMPRESSION: No acute intracranial hemorrhage noted Lab Data Lab results reviewed: Yes I reviewed the patient's lab results. ECG Data Attestation: I personally reviewed and interpreted this ECG (s) as follows: Prior ECG tracings: not available for review Interpretation: sinus rhythm, rate of 89, pr 156, no acute st t wave ischemic findings HPI General Mode of arrival: EMS . Date/Time Provider Initiated Documentation: 08/28/19 05:48 . Information obtained by: patient and EMS . History of Present Illness 73 year old M presents to the emergency department with the chief complaint of I'm not sure what happened, I feel fine now, and it has been now resolved. Patient notes no other symptoms.. Related Data Home Medications Medication Instructions Recorded Confirmed multivitamin 1 tab PO DAILY 02/08/15 08/28/19 sertraline 100 mg PO DAILY 02/08/15 08/28/19 omeprazole 40 mg PO DAILY #60 tab-cap 08/14/16 08/28/19 atorvastatin [Lipitor] 80 mg PO HS tab 10/18/17 08/28/19 levetiracetam [Keppra] 500 mg PO BID tab 10/18/17 08/28/19 albuterol sulfate [ProAir HFA] 2 puff INHALATION Q6H PRN 12/04/18 08/28/19 diltiazem HCl [DILT-XR] 240 mg PO DAILY 12/04/18 08/28/19 finasteride 5 mg PO DAILY 12/04/18 08/28/19 fluticasone propion-salmeterol 1 inh INHALATION BID 12/04/18 08/28/19 [Advair Diskus] melatonin 3 mg PO HS PRN 12/04/18 08/28/19 tamsulosin 0.8 mg PO DAILY #60 cap 12/06/18 08/28/19 Lantus Solostar U-100 Insulin 15 units SUBCUT BID #0 ml 03/16/19 08/28/19 Spiriva Respimat 2 puff INHALATION DAILY #0 g 03/16/19 08/28/19 insulin aspart U-100 [Novolog 0 units SUBCUT AC & HS #0 ml 03/16/19 08/28/19 Flexpen U-100 Insulin] insulin aspart U-100 [Novolog 10 unit SQ AC #0 ml 03/16/19 08/28/19 Flexpen U-100 Insulin] magnesium oxide 400 mg PO DAILY 05/18/19 08/28/19 rivaroxaban 15 mg tablet 15 mg PO DAILY 05/18/19 08/28/19 metoprolol tartrate 12.5 mg PO DAILY 08/28/19 08/28/19 potassium chloride 20 meq PO BID #20 tab 08/28/19 Previous Rx's Medication Instructions Recorded atorvastatin [Lipitor] 80 mg PO HS tab 10/18/17 levetiracetam [Keppra] 500 mg PO BID tab 10/18/17 tamsulosin 0.8 mg PO DAILY #60 cap 12/06/18 Lantus Solostar U-100 Insulin 15 units SUBCUT BID #0 ml 03/16/19 Spiriva Respimat 2 puff INHALATION DAILY #0 g 03/16/19 insulin aspart U-100 [Novolog 0 units SUBCUT AC & HS #0 ml 03/16/19 Flexpen U-100 Insulin] insulin aspart U-100 [Novolog 10 unit SQ AC #0 ml 03/16/19 Flexpen U-100 Insulin] potassium chloride 20 meq PO BID #20 tab 08/28/19 Allergies Allergy/AdvReac Type Severity Reaction Status Date / Time No Known Allergies Allergy Unverified 08/28/19 05:46 General Stated Complaint: Seizure KAELA: 2 Review of Systems All systems reviewed & are unremarkable except as noted in HPI and below Constitutional Constitutional: Denies chills, Denies fever(s) and Denies weakness Cardiovascular Cardiovascular: Denies chest pain and Denies dyspnea Respiratory Respiratory: Denies cough and Denies dyspnea Gastrointestinal Gastrointestinal: Denies abdominal pain, Denies nausea and Denies vomiting Musculoskeletal Musculoskeletal: Denies joint swelling Neurologic Neurologic: Denies weakness Psychiatric Psychiatric: Denies depression [facility] Social History Smoking/Tobacco Use Status: Former Tobacco Use Alcohol Intake: never Drug use: Never Substance use type: does not use Household members: children 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 What is your relationship status?: Panel score (0-1 are the most socially isolated patients): 0 Seatbelt use: never Do you feel safe at home: Yes Do you feel safe in your relationship?: Yes Exam Const General: no acute distress Orientation: alert HENMT Head: normal to inspection Ears: external ears normal General nose exam: external nose normal Mouth: moist mucous membranes Eyes General: appearance normal, both eyes and all related structures Neck Neck: normal visual inspection Resp Effort & Inspection: normal respiratory effort and able to speak in complete se ntences Cardio Rate: regular rate Skin General skin exam: no rashes or lesions noted Neuro General: patient alert Extrem General: normal to inspection Psych Mental Status: mental status grossly normal Course Vital Signs Vital signs: Vital Signs Temperature 36.8 C 08/28/19 05:44 Pulse 91 H 08/28/19 05:44 Respiratory Rate 16 08/28/19 05:44 Blood Pressure 160/77 H 08/28/19 05:44 Pulse Oximetry 93 L 08/28/19 05:44 Temperature 36.8 C 08/28/19 05:44 Temperature Source Temporal Artery Scan 08/28/19 05:44 Pulse 91 H 08/28/19 05:44 Respiratory Rate 16 08/28/19 05:44 Blood Pressure 160/77 H 08/28/19 05:44 Blood Pressure Position Sitting 08/28/19 05:44 Pulse Oximetry 93 L 08/28/19 05:44 Oxygen Delivery Method Room Air 08/28/19 05:44 Oxygen Flow Rate 0 08/28/19 05:44 Pain Level 0 08/28/19 05:44
[2019-08-28 05:58] LABS: Abs Immature Grans 0.02 k/cumm (0.0-0.09); Absolute Basophil Count 0.01 k/cumm (0.0-0.2); Absolute Eosinophil Count 0.03 k/cumm (0.0-0.7); Absolute Lymphocyte Count 1.04 k/cumm (1.2-3.4); Absolute Neutrophil Count 7.25 k/cumm (1.2-6.7); Basophils % 0.1; Eosinophils % 0.3; HCT 37.9 % (40.0-50.0); HGB 13.4 g/dL (13.5-17.5); Immature Grans % 0.2 %; Lymphocytes % 11.9; Mean Corp. HGB Concentration 35.4 g/dL (32.0-36.0); Mean Corpuscular Hemoglobin 31.6 pg (27.0-33.0); Mean Corpuscular Volume 89.4 fL (80-95); Mean Platelet Volume 10.2 fL (8.0-11.0); Monocytes % 4.6; Neutrophils % 82.9; Platelet Count 304 x1000/uL (130-400); RBC 4.24 m/cumm (4.50-6.00); RBC Distribution Width 14.9 % (11.8-14.1); White Blood Cell Count 8.75 k/cumm (4.4-10.8)
[2019-08-28 06:00] VITALS: BP 182/84; PULSE 88; RESP 20; O2SAT 93
[2019-08-28 06:09] LABS: PTT Activated 24.1 sec (21.0-31.4); Prothrombin Time 9.6 sec (9.3-11.0)
[2019-08-28 06:11] LABS: ALT 16 U/L (16-63); AST 24 U/L (15-37); Alkaline Phosphatase 121 U/L (46-116); Anion Gap 5.8 mmol/L (3-11); BUN 16 mg/dL (7-18); Bilirubin, Total 0.4 mg/dL (0.2-1.0); CO2 32.2 mmol/L (21.0-32.0); CREATININE 2.26 mg/dL (0.70-1.30); Calcium 8.3 mg/dL (8.5-10.1); Chloride 105 mmol/L (98-107); Estimated GFR 28.51 (mL/min/1.73m2); Glucose 85 mg/dL (74-106); Magnesium 1.7 mg/dL (1.8-2.4); Sodium 143 mmol/L (136-145); Total Protein 5.9 g/dL (6.4-8.2)
[2019-08-28 06:14] LABS: Potassium 2.5 mmol/L (3.5-5.1); Troponin I < 0.05 ng/Ml (<0.06)
[2019-08-28 06:15] VITALS: BP 181/82; PULSE 87; RESP 16; O2SAT 92
--- NOTE | 2019-08-28 06:25 | DI.CT_ITS ---
EXAM: CT HEAD WO CLINICAL HISTORY: seizure TECHNIQUE: 2D digital imaging was performed. COMPARISON: No exams were available for comparison FINDINGS: No intracranial hemorrhage, mass or acute infarct is seen. There is no evidence of skull fracture. The ventricles are normal size. There are old bilateral lacunar infarcts and white matter changes of small vessel disease. The orbits, sinuses and mastoid air cells are unremarkable as visualized. IMPRESSION: Old lacunar infarcts. No acute abnormality. RADIATION DOSE DELIVERED: Total DLP
[2019-08-28 06:37] LABS: ETHANOL BLOOD < 3.0 mg/dL (<3)
[2019-08-28] MEDS: Normal Saline Flush 10 ML SYR IVP (06:43)
[2019-08-28] MEDS: Ondansetron 4 MG/2 ML VIAL IVP (06:43)
--- NOTE | 2019-08-28 06:46 | DI.VRAD_ITS ---
PROCEDURE INFORMATION: Exam: CT Head Without Contrast Exam date and time: 08/28/2019 5:42 AM Age: 73 years old Clinical indication: Other: Seizure TECHNIQUE: Imaging protocol: Computed tomography of the head without contrast. Radiation optimization: All CT scans at this facility use at least one of these dose optimization techniques: automated exposure control; mA and/or kV adjustment per patient size (includes targeted exams where dose is matched to clinical indication); or iterative reconstruction. COMPARISON: CT HEAD WO 03/10/2019 3:37 PM FINDINGS: Mildly limited due to motion artifact Brain: Mild volume loss. Chronic cerebellar infarctions noted. Chronic right basal ganglia and internal capsular lacunar infarctions No hemorrhage. Moderate white matter disease. No mass effect. Ventricles: Normal. No ventriculomegaly. Bones/joints: Unremarkable. No acute fracture. Sinuses: Visualized sinuses are unremarkable. No fluid levels. Mastoid air cells: Visualized mastoid air cells are well aerated. Soft tissues: Unremarkable. IMPRESSION: No acute intracranial hemorrhage noted Dictated and Authenticated by: Luis Manuel Sharp MD. Ordering:KRISS Izquierdo MD
[2019-08-28 06:54] LABS: Bilirubin Negative (Negative); Blood Moderate (Negative); Clarity Cloudy (Clear); Glucose 100 mg/dL (Negative); Ketones Negative (Negative); Leukocyte Esterase Negative (Negative); Nitrite Negative (Negative); Specific Gravity 1.025 (1.005-1.025); Urobilinogen 0.2 EU/dL (Up TO 0.2); pH 6.5 (5-8)
[2019-08-28 07:10] LABS: Bacteria Many HPF (Negative); C & S Indicated? Yes; Casts Negative LPF (Negative); Crystals Negative HPF (Negative); Epithelial Cells Few HPF (Negative); Mucus Negative (Negative); WBC 0-2 HPF (0-5)
[2019-08-28 07:29] VITALS: BP 177/93; PULSE 95; RESP 22; O2SAT 96
[2019-08-28] MEDS: Potassium Chloride Liquid 20 MEQ PKT 80 MEQ PO (07:29)
== END 2019-08-28 08:40 | disposition home or self-care (01) ==
PROVIDERS: Emergency Provider Emergency Medicine; PCP Family Medicine
DX: G40.909 Epilepsy, unspecified, not intractable, without status epilepticus (principal); E87.6 Hypokalemia; E11.22 Type 2 diabetes mellitus with diabetic chronic kidney disease; Z79.4 Long term (current) use of insulin; I12.9 Hypertensive chronic kidney disease with stage 1 through stage 4 chronic kidney disease, or unspecified chronic kidney disease; N18.9 Chronic kidney disease, unspecified; I48.91 Unspecified atrial fibrillation; Z79.01 Long term (current) use of anticoagulants; I69.354 Hemiplegia and hemiparesis following cerebral infarction affecting left non-dominant side; J44.9 Chronic obstructive pulmonary disease, unspecified
CPT/HCPCS: 36415; 51701; 80053; 87077; 93005; 96374; 99285; 70450; 80320; 81003; 81015; 83735; 84484; 85025; 85610; 85730; 87086; 87186; 93010; 99284; J2405

== ENCOUNTER 2019-09-13 18:10 | Outpatient (REF) | payer SELFPAY ==
[2019-09-14 20:33] LABS: COVID-19 RT-PCR UVMMC Result Negative (Negative)
== END 2019-09-13 18:30 ==
LOC: LBN 18:10
PROVIDERS: PCP Family Medicine; Visit Provider Nurse Practitioner Adult Health
DX: Z20.828 Contact with and (suspected) exposure to other viral communicable diseases (principal)
CPT/HCPCS: U0003

== ENCOUNTER 2019-09-15 14:39 | Outpatient (REF) | payer MEDICARE, SELFPAY ==
[2019-09-15 15:33] LABS: Absolute Basophil Count 0.01 k/cumm (0.0-0.2); Absolute Eosinophil Count 0.12 k/cumm (0.0-0.7); Absolute Monocyte Count 0.37 k/cumm (0.11-0.7); Absolute Neutrophil Count 3.21 k/cumm (1.2-6.7); Basophils % 0.2; Eosinophils % 2.4; HCT 30.8 % (40.0-50.0); HGB 10.2 g/dL (13.5-17.5); Lymphocytes % 25.9; Mean Corp. HGB Concentration 33.1 g/dL (32.0-36.0); Mean Corpuscular Volume 93.6 fL (80-95); Mean Platelet Volume 11.1 fL (8.0-11.0); Monocytes % 7.4; Neutrophils % 64.1; Platelet Count 315 x1000/uL (130-400); RBC 3.29 m/cumm (4.50-6.00); RBC Distribution Width 14.5 % (11.8-14.1); White Blood Cell Count 5.01 k/cumm (4.4-10.8)
[2019-09-15 15:35] LABS: ALT 19 U/L (16-63); AST 28 U/L (15-37); Alkaline Phosphatase 107 U/L (46-116); Anion Gap 6.4 mmol/L (3-11); BUN 23 mg/dL (7-18); Bilirubin, Total 0.3 mg/dL (0.2-1.0); CO2 29.6 mmol/L (21.0-32.0); CREATININE 2.72 mg/dL (0.70-1.30); Calcium 7.8 mg/dL (8.5-10.1); Chloride 104 mmol/L (98-107); Estimated GFR 23.02 (mL/min/1.73m2); Glucose 266 mg/dL (74-106); Potassium 3.3 mmol/L (3.5-5.1); Sodium 140 mmol/L (136-145); Total Protein 4.7 g/dL (6.4-8.2)
[2019-09-20 13:14] LABS: Levetiracetam 48.5 mcg/mL
== END 2019-09-15 14:59 ==
LOC: LBN 14:39
PROVIDERS: PCP Family Medicine; Visit Provider Family Medicine
DX: R56.9 Unspecified convulsions (principal); Z51.81 Encounter for therapeutic drug level monitoring; N18.9 Chronic kidney disease, unspecified
CPT/HCPCS: 80053; 80177; 85025

== ENCOUNTER 2019-09-20 16:42 | Outpatient (REF) | payer SELFPAY ==
[2019-09-21 01:25] LABS: COVID-19 RT-PCR UVMMC Result Negative (Negative)
== END 2019-09-20 17:02 ==
LOC: LBN 16:42
PROVIDERS: PCP Family Medicine; Visit Provider Nurse Practitioner Adult Health
DX: Z03.818 Encounter for observation for suspected exposure to other biological agents ruled out (principal)
CPT/HCPCS: U0003

== ENCOUNTER 2019-10-30 11:19 | Outpatient (REF) | payer MEDICARE, SELFPAY ==
[2019-10-30 13:57] LABS: Anion Gap 7.6 mmol/L (3-11); BUN 27 mg/dL (7-18); CO2 27.4 mmol/L (21.0-32.0); CREATININE 2.82 mg/dL (0.70-1.30); Calcium 8.3 mg/dL (8.5-10.1); Chloride 106 mmol/L (98-107); Estimated GFR 22.08 (mL/min/1.73m2); Glucose 299 mg/dL (74-106); Potassium 3.9 mmol/L (3.5-5.1); Sodium 141 mmol/L (136-145)
== END 2019-10-30 11:39 ==
LOC: NCHCN 11:19
PROVIDERS: PCP Family Medicine; Visit Provider Family Medicine
DX: I13.10 Hypertensive heart and chronic kidney disease without heart failure, with stage 1 through stage 4 chronic kidney disease, or unspecified chronic kidney disease (principal); E11.22 Type 2 diabetes mellitus with diabetic chronic kidney disease
CPT/HCPCS: 80048

== ENCOUNTER 2019-12-10 15:17 | Outpatient (REF) | payer MEDICARE, SELFPAY ==
[2019-12-12 20:05] LABS: COVID-19 RT-PCR Result Not Detected ((See Note))
== END 2019-12-10 15:37 ==
LOC: LBN 15:17
PROVIDERS: PCP Family Medicine; Visit Provider Nurse Practitioner Adult Health
DX: Z11.59 Encounter for screening for other viral diseases (principal)
CPT/HCPCS: U0003

== ENCOUNTER 2019-12-17 12:20 | Outpatient (REF) | payer MEDICARE, SELFPAY ==
[2019-12-18 16:58] LABS: COVID-19 RT-PCR Result Not Detected ((See Note))
== END 2019-12-17 12:40 ==
LOC: LBN 12:20
PROVIDERS: PCP Family Medicine; Visit Provider Nurse Practitioner Adult Health
DX: Z11.59 Encounter for screening for other viral diseases (principal)
CPT/HCPCS: U0003

== ENCOUNTER 2019-12-20 14:21 | Outpatient (REF) | payer MEDICARE, SELFPAY ==
[2019-12-20 13:52] LABS: Bilirubin Negative (Negative); Blood Large (Negative); Clarity Clear (Clear); Glucose Negative (Negative); Ketones Negative (Negative); Leukocyte Esterase Moderate (Negative); Nitrite Negative (Negative); Specific Gravity 1.025 (1.005-1.025); Urobilinogen 0.2 EU/dL (Up TO 0.2); pH 5.5 (5-8)
[2019-12-20 14:03] LABS: WBC >50 HPF (0-5)
[2019-12-20 14:04] LABS: C & S Indicated? C&S Done As Ordered
== END 2019-12-20 14:41 ==
LOC: LBN 14:21
PROVIDERS: PCP Family Medicine; Visit Provider Nurse Practitioner Adult Health
DX: N39.0 Urinary tract infection, site not specified (principal)
CPT/HCPCS: 87077; 81003; 81015; 87086; 87186

== ENCOUNTER 2019-12-24 07:10 | Outpatient (REF) | payer MEDICARE, SELFPAY ==
[2019-12-24 14:34] LABS: Abs Immature Grans 0.03 10^3/uL (0.0-0.06); Absolute Basophil Count 0.02 10^3/uL (0.0-0.2); Absolute Eosinophil Count 0.19 10^3/uL (0.0-0.7); Absolute Lymphocyte Count 1.48 10^3/uL (1.2-3.4); Absolute Monocyte Count 0.39 10^3/uL (0.1-0.8); Absolute Neutrophil Count 4.94 10^3/uL (1.2-6.7); Basophils % 0.3; Eosinophils % 2.7; HCT 30.7 % (40.0-50.0); HGB 9.8 g/dL (13.5-17.5); Immature Grans % 0.4; MCH 30.6 pg (27.0-33.0); MCHC 31.9 % (32.0-36.0); MCV 95.9 fL (80-95); MPV 10.5 fL (8.0-11.0); Monocytes % 5.5; Neutrophils % 70.1; Nucleated RBC 0 %; Platelet Count 299 10^3/uL (130-400); RDW 13.5 % (11.8-14.1); RDW-SD 47.8 fL; WBC 7.05 10^3/uL (4.4-10.8)
[2019-12-24 14:39] LABS: Anion Gap 9.4 mmol/L (3-11); BUN 30 mg/dL (7-18); C-Reactive Protein 7.49 mg/dL (0.0-0.3); CO2 25.6 mmol/L (21.0-32.0); Calcium 8.3 mg/dL (8.5-10.1); Chloride 106 mmol/L (98-107); Estimated GFR 19.03 (mL/min/1.73m2); Glucose 139 mg/dL (74-106); Potassium 4.3 mmol/L (3.5-5.1); Sodium 141 mmol/L (136-145)
[2019-12-24 16:09] LABS: ESR 102 mm/hr (1-20)
== END 2019-12-24 07:30 ==
LOC: LBN 07:10
PROVIDERS: PCP Family Medicine; Visit Provider Family Medicine
DX: I10 Essential (primary) hypertension (principal); N18.9 Chronic kidney disease, unspecified; I50.9 Heart failure, unspecified
CPT/HCPCS: 80048; 85652; 85025; 86140

== ENCOUNTER 2019-12-29 14:17 | Outpatient (REF) | payer MEDICARE, SELFPAY ==
[2019-12-29 14:40] LABS: Abs Immature Grans 0.03 10^3/uL (0.0-0.06); Absolute Basophil Count 0.01 10^3/uL (0.0-0.2); Absolute Eosinophil Count 0.01 10^3/uL (0.0-0.7); Absolute Lymphocyte Count 0.88 10^3/uL (1.2-3.4); Absolute Monocyte Count 0.79 10^3/uL (0.1-0.8); Absolute Neutrophil Count 5.56 10^3/uL (1.2-6.7); Basophils % 0.1; Eosinophils % 0.1; HCT 30.7 % (40.0-50.0); Immature Grans % 0.4; Lymphocytes % 12.1; MCH 30.8 pg (27.0-33.0); MCHC 32.6 % (32.0-36.0); MCV 94.5 fL (80-95); MPV 10.5 fL (8.0-11.0); Monocytes % 10.9; Neutrophils % 76.4; Nucleated RBC 0 %; Platelet Count 249 10^3/uL (130-400); RBC 3.25 10^6/uL (4.36-5.78); RDW 13.6 % (11.8-14.1); RDW-SD 46.7 fL; WBC 7.28 10^3/uL (4.4-10.8)
[2019-12-29 14:53] LABS: ALT 20 U/L (16-63); AST 22 U/L (15-37); Albumin 2.1 g/dL (3.4-5.0); Alkaline Phosphatase 95 U/L (46-116); Anion Gap 10.1 mmol/L (3-11); BUN 38 mg/dL (7-18); Bilirubin, Total 0.3 mg/dL (0.2-1.0); CO2 21.9 mmol/L (21.0-32.0); CREATININE 3.43 mg/dL (0.70-1.30); Calcium 8.1 mg/dL (8.5-10.1); Chloride 104 mmol/L (98-107); Estimated GFR 17.57 (mL/min/1.73m2); Glucose 319 mg/dL (74-106); Potassium 4.3 mmol/L (3.5-5.1); Sodium 136 mmol/L (136-145); Total Protein 5.4 g/dL (6.4-8.2)
== END 2019-12-29 14:37 ==
LOC: LBN 14:17
PROVIDERS: PCP Family Medicine; Visit Provider Nurse Practitioner Adult Health
DX: N17.9 Acute kidney failure, unspecified (principal); I50.9 Heart failure, unspecified; R33.9 Retention of urine, unspecified
CPT/HCPCS: 80053; 85025

== ENCOUNTER → 2020-01-10 08:15 | Outpatient (BNVA) | payer MEDICARE, SELFPAY | PROVIDERS: PCP Family Medicine; Referring Provider Family Medicine; Visit Provider Psychiatry & Neurology Neurology | DX: R69 Illness, unspecified (principal) | CPT/HCPCS: 99213 ==

== ENCOUNTER 2020-01-28 16:42 | Outpatient (REF) | payer MEDICARE, SELFPAY ==
[2020-01-28 14:26] LABS: Clarity Cloudy (Clear)
[2020-01-28 14:39] LABS: Bilirubin Color Interference (Negative); Blood Color Interference (Negative); Glucose Color Interference mg/dL (Negative); Ketones Color Interference mg/dL (Negative); Leukocyte Esterase Color Interference (Negative); Nitrite Color Interference (Negative); Specific Gravity 1.018 (1.005-1.025); Urobilinogen Color Interference EU/dL (Up TO 0.2)
[2020-01-28 14:41] LABS: Bacteria Packed HPF (Negative); C & S Indicated? C&S Done As Ordered; WBC >50 HPF (0-5)
== END 2020-01-28 17:02 ==
LOC: LBN 16:42
PROVIDERS: PCP Family Medicine; Visit Provider Family Medicine
DX: N39.0 Urinary tract infection, site not specified (principal)
CPT/HCPCS: 87077; 81003; 81015; 87086; 87186

== ENCOUNTER 2020-01-30 18:11 | Emergency (ER) | payer MEDICARE, SELFPAY ==
[2020-01-30 18:12] VITALS: BP 117/74; PULSE 78; RESP 16; TEMP 36.6; O2SAT 95
--- NOTE | 2020-01-30 18:15 | ED.GENADUL_ITS ---
Discharge Plan Disposition Patient Disposition: HOME Condition: Good Discharge Details Clinical Impression: Whitt catheter in place Primary Care Provider: Isak Magana ED Provider: Shyla Dorsey Home Meds and New Rx's Prescriptions: Continued magnesium oxide 400 mg magnesium tablet 400 mg PO DAILY RF: 0 Xarelto 15 mg tablet 15 mg PO DAILY RF: 0 levetiracetam 750 mg tablet 750 mg PO BID RF: 0 furosemide 40 mg tablet 40 mg PO DAILY RF: 0 lidocaine [Lidoderm] 5 % adhesive patch,medicated 1 patch topical DAILY RF: 0 tramadol 50 mg tablet 25 mg PO Q8H PRNRF: 0 phenazopyridine [Pyridium] 100 mg tablet 100 mg PO TID PRNRF: 0 omeprazole 40 MG capsule,delayed release(DR/EC) 40 mg PO DAILY Qty: 60 RF: 3 multivitamin 1 EACH tablet 1 tab PO DAILY RF: 0 sertraline 100 MG tablet 100 mg PO DAILY RF: 0 atorvastatin [Lipitor] 40 MG tablet 80 mg PO HS RF: 0 insulin aspart U-100 [Novolog Flexpen U-100 Insulin] 100 unit/mL (3 mL) Insulin Pen 0 units subcut AC & HS Qty: 0 RF: 0 Lantus Solostar U-100 Insulin 100 unit/mL (3 mL) Insulin Pen 15 units subcut BID Qty: 0 RF: 0 insulin aspart U-100 [Novolog Flexpen U-100 Insulin] 300 UNITS/3 ML insulin pen 10 unit SQ AC Qty: 0 RF: 0 metoprolol tartrate 25 mg tablet 12.5 mg PO DAILY RF: 0 potassium chloride 20 mEq tablet,ER particles/crystals 20 meq PO BID Qty: 20 RF: 0 fluticasone propion-salmeterol [Advair Diskus] 250-50 mcg/dose Blister With Device 1 inh INHALATION BID RF: 0 diltiazem HCl [DILT-XR] 240 mg Capsule,Ext.Rel 24h Degradable 240 mg PO DAILY RF: 0 melatonin 3 mg Tablet 3 mg PO HS PRNRF: 0 albuterol sulfate [ProAir HFA] 90 mcg/actuation Hfa Aerosol Inhaler 2 puff INHALATION Q6H PRNRF: 0 finasteride 5 mg Tablet 5 mg PO DAILY RF: 0 tamsulosin 0.4 MG capsule 0.8 mg PO DAILY Qty: 60 RF: 0 Discharge Instructions Instructions: Whitt Catheter Placement and Care (ED) Additional Instructions: Catheter was replaced with good urinary flow. The balloon in place is a 30 cc balloon. Patient has an 18-gauge Coude catheter. Please continue catheter care as previously instructed. Please follow-up with urology to discuss further. Call tomorrow, number listed below. Unable to urinate, fever/chills, increased pain or other new/worsening symptoms to seek care urgently once again. Referrals: Harinder Cooney MD [ [facility] STAFF PHYSICIAN] - Isak Magana [Primary Care Provider] - Medical Decision Making Patient is a pleasant 74-year-old male [facility] after he pulled out his catheter with balloon stone plated. Attempts were made at [facility] for placement without success. Patient does have history of urinary retention and chronically has a Whitt in place. Exam reveals blood clot at the meatus. No active bleeding. No penile tenderness. Penile implant is palpable. No abdominal pain, no pain over the bladder. 18-gauge Coude catheter with 30 cc balloon was able to be inserted by nursing staff. Patient tolerated this well. They will continue with catheter. There is advised. No P cc of urine was drained from the catheter. HPI General Mode of arrival: EMS . Date/Time Provider Initiated Documentation: 01/30/20 18:15 . Limitations to Documentation: no limitations . Information obtained by: patient and RN notes reviewed . History of Present Illness 74 year old M presents to the emergency department with the chief complaint of urinary catheter pulled out by patient, described as mild (denies any pain currently, had penile pain initially), Patient started experiencing this minute(s) and it has been now resolved. No relieving factors improve symptom(s), No exacerbating factors reported . Patient notes no other symptoms.. Patient did receive the following treatments prior to arrival, other (nursing staff attempted to replace at [facility] without success) Related Data Home Medications Medication Instructions Recorded Confirmed multivitamin 1 tab PO DAILY 02/08/15 01/10/20 sertraline 100 mg PO DAILY 02/08/15 01/10/20 omeprazole 40 mg PO DAILY #60 tab-cap 08/14/16 01/10/20 atorvastatin [Lipitor] 80 mg PO HS tab 10/18/17 01/10/20 albuterol sulfate [ProAir HFA] 2 puff INHALATION Q6H PRN 12/04/18 01/10/20 diltiazem HCl [DILT-XR] 240 mg PO DAILY 12/04/18 01/10/20 finasteride 5 mg PO DAILY 12/04/18 01/10/20 fluticasone propion-salmeterol 1 inh INHALATION BID 12/04/18 01/10/20 [Advair Diskus] melatonin 3 mg PO HS PRN 12/04/18 01/10/20 tamsulosin 0.8 mg PO DAILY #60 cap 12/06/18 01/10/20 Lantus Solostar U-100 Insulin 15 units SUBCUT BID #0 ml 03/16/19 01/10/20 insulin aspart U-100 [Novolog 0 units SUBCUT AC & HS #0 ml 03/16/19 01/10/20 Flexpen U-100 Insulin] insulin aspart U-100 [Novolog 10 unit SQ AC #0 ml 03/16/19 01/10/20 Flexpen U-100 Insulin] magnesium oxide 400 mg PO DAILY 05/18/19 01/10/20 rivaroxaban 15 mg tablet 15 mg PO DAILY 05/18/19 01/10/20 metoprolol tartrate 12.5 mg PO DAILY 08/28/19 01/10/20 potassium chloride 20 meq PO BID #20 tab 08/28/19 01/10/20 furosemide 40 mg tablet 40 mg PO DAILY 01/10/20 01/10/20 levetiracetam 750 mg tablet 750 mg PO BID 01/10/20 01/10/20 lidocaine 5 % topical patch 1 patch TOPICAL DAILY 01/10/20 01/10/20 phenazopyridine 100 mg tablet 100 mg PO TID PRN 01/10/20 01/10/20 tramadol 50 mg tablet 25 mg PO Q8H PRN tab 01/10/20 01/10/20 Previous Rx's Medication Instructions Recorded atorvastatin [Lipitor] 80 mg PO HS tab 10/18/17 tamsulosin 0.8 mg PO DAILY #60 cap 12/06/18 Lantus Solostar U-100 Insulin 15 units SUBCUT BID #0 ml 03/16/19 insulin aspart U-100 [Novolog 0 units SUBCUT AC & HS #0 ml 03/16/19 Flexpen U-100 Insulin] insulin aspart U-100 [Novolog 10 unit SQ AC #0 ml 03/16/19 Flexpen U-100 Insulin] potassium chloride 20 meq PO BID #20 tab 08/28/19 Allergies Allergy/AdvReac Type Severity Reaction Status Date / Time No Known Allergies Allergy Unverified 08/28/19 05:46 General KAELA: 2 Review of Systems Constitutional Constitutional: Reports as per HPI, Denies chills, Denies fever(s) and Denies poor appetite Cardiovascular Cardiovascular: Denies chest pain Respiratory Respiratory: Denies cough Gastrointestinal Gastrointestinal: Denies abdominal pain, Denies change in bowel habits, Denies nausea and Denies vomiting Genitourinary Genitourinary: Reports as per HPI Musculoskeletal Musculoskeletal: Reports as per HPI and Denies back pain Integumentary/Breasts Skin/Breast: Reports as per HPI and Denies rash PFSH Medical History Cerebrovascular disease CVA CKD (chronic kidney disease) COPD (chronic obstructive pulmonary disease) Diabetes Diabetic gastroenteropathy GERD (gastroesophageal reflux disease) HTN (hypertension) Hyperlipidemia Seizure Urinary retention Surgical History EGD - MAC (07/28/16) S/P insertion of penile implant S/P prostatectomy Social History Smoking/Tobacco Use Status: Former Tobacco Use Alcohol Intake: never Drug use: Never Substance use type: does not use Household members: children 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 What is your relationship status?: Panel score (0-1 are the most socially isolated patients): 0 Seatbelt use: never Do you feel safe at home: Yes Do you feel safe in your relationship?: Yes Exam Const General: cooperative, healthy appearing, comfortable, no acute distress, well developed and well groomed Nutritional Appearance: average body habitus and well nourished Orientation: alert and awake Resp Effort & Inspection: normal respiratory effort and no respiratory distress Auscultation: clear to auscultation bilaterally, no rales, no rhonchi and no wheezes Cardio Rate: regular rate Rhythm: regular rhythm Heart Sounds: S1 normal and S2 normal GI Inspection: normal to inspection Palpation: soft, no hepatosplenomegaly, not firm, no guarding, not rigid and nontender Male General Exam: No normal external exam (clot noted, no active bleeding) Penis: penis abnormal (clot. Palpable penile implant), no ecchymosis, not edematous, not erythematous and no swelling Scrotum: scrotum normal Back/Spine/Pelvis Back: no CVA tenderness Skin General skin exam: no rashes or lesions noted Trauma: no lacerations or abrasions Neuro General: patient alert and patient awake Cognition: normal cognition Speech: speech normal Gait: normal gait Psych Appearance: grossly normal and well kempt Mental Status: mental status grossly normal Speech and Movement: speech and movement normal
[2020-01-30] MEDS: Lidocaine 2% Jelly 6 ML SYR (19:00)
== END 2020-01-30 19:15 | disposition home or self-care (01) ==
LOC: ER 19:17
PROVIDERS: Emergency Provider Physician Assistant; PCP Family Medicine
DX: T83.021A Displacement of indwelling urethral catheter, initial encounter (principal); E11.22 Type 2 diabetes mellitus with diabetic chronic kidney disease; Z79.4 Long term (current) use of insulin; I12.9 Hypertensive chronic kidney disease with stage 1 through stage 4 chronic kidney disease, or unspecified chronic kidney disease; N18.9 Chronic kidney disease, unspecified; J44.9 Chronic obstructive pulmonary disease, unspecified; Z87.891 Personal history of nicotine dependence; Z96.0 Presence of urogenital implants
CPT/HCPCS: 51703; 99283

== ENCOUNTER 2020-02-07 11:24 | Outpatient (REF) | payer MEDICARE, SELFPAY ==
[2020-02-07 12:02] LABS: Abs Immature Grans 0.07 10^3/uL (0.0-0.06); Absolute Basophil Count 0.02 10^3/uL (0.0-0.2); Absolute Eosinophil Count 0.12 10^3/uL (0.0-0.7); Absolute Lymphocyte Count 1.19 10^3/uL (1.2-3.4); Absolute Monocyte Count 0.62 10^3/uL (0.1-0.8); Absolute Neutrophil Count 8.02 10^3/uL (1.2-6.7); Basophils % 0.2; Eosinophils % 1.2; HCT 27.7 % (40.0-50.0); HGB 9.1 g/dL (13.5-17.5); Immature Grans % 0.7; Lymphocytes % 11.9; MCH 30.5 pg (27.0-33.0); MCHC 32.9 % (32.0-36.0); MPV 10.2 fL (8.0-11.0); Monocytes % 6.2; Neutrophils % 79.8; Nucleated RBC 0 %; Platelet Count 320 10^3/uL (130-400); RBC 2.98 10^6/uL (4.36-5.78); RDW 13.7 % (11.8-14.1); RDW-SD 46.5 fL; WBC 10.04 10^3/uL (4.4-10.8)
[2020-02-07 12:07] LABS: Anion Gap 10.9 mmol/L (3-11); BUN 51 mg/dL (7-18); CO2 21.1 mmol/L (21.0-32.0); CREATININE 3.23 mg/dL (0.70-1.30); Calcium 8.3 mg/dL (8.5-10.1); Chloride 106 mmol/L (98-107); Estimated GFR 18.83 (mL/min/1.73m2); Glucose 214 mg/dL (74-106); Sodium 138 mmol/L (136-145)
== END 2020-02-07 11:44 ==
LOC: LBN 11:24
PROVIDERS: PCP Family Medicine; Visit Provider Nurse Practitioner Adult Health
DX: E78.5 Hyperlipidemia, unspecified (principal); R33.9 Retention of urine, unspecified; N17.9 Acute kidney failure, unspecified; N18.9 Chronic kidney disease, unspecified
CPT/HCPCS: 80048; 85025

== ENCOUNTER 2020-04-04 18:17 | Outpatient (REF) | payer MEDICARE, SELFPAY ==
[2020-04-04 17:18] LABS: ALT 19 U/L (16-63); AST 20 U/L (15-37); Albumin 2.3 g/dL (3.4-5.0); Alkaline Phosphatase 92 U/L (46-116); Anion Gap 4.4 mmol/L (3-11); BUN 34 mg/dL (7-18); Bilirubin, Total 0.2 mg/dL (0.2-1.0); CO2 25.6 mmol/L (21.0-32.0); CREATININE 2.57 mg/dL (0.70-1.30); Calcium 8.2 mg/dL (8.5-10.1); Chloride 107 mmol/L (98-107); Estimated GFR 24.51 (mL/min/1.73m2); Glucose 176 mg/dL (74-106); Potassium 5.1 mmol/L (3.5-5.1); Sodium 137 mmol/L (136-145); Total Protein 5.7 g/dL (6.4-8.2)
== END 2020-04-04 18:37 ==
LOC: LBN 18:17
PROVIDERS: PCP Family Medicine; Visit Provider Nurse Practitioner Adult Health
DX: E78.5 Hyperlipidemia, unspecified (principal); I10 Essential (primary) hypertension; E11.9 Type 2 diabetes mellitus without complications; N18.9 Chronic kidney disease, unspecified
CPT/HCPCS: 80053; 85025

== ENCOUNTER 2020-04-05 20:53 | Outpatient (REF) | payer MEDICARE, SELFPAY ==
[2020-04-05 18:16] LABS: Abs Immature Grans 0.01 10^3/uL (0.0-0.06); Absolute Basophil Count 0.01 10^3/uL (0.0-0.2); Absolute Eosinophil Count 0.07 10^3/uL (0.0-0.7); Absolute Lymphocyte Count 0.87 10^3/uL (1.2-3.4); Absolute Monocyte Count 0.55 10^3/uL (0.1-0.8); Absolute Neutrophil Count 6.04 10^3/uL (1.2-6.7); Basophils % 0.1; Eosinophils % 0.9; HCT 27.5 % (40.0-50.0); HGB 8.7 g/dL (13.5-17.5); Immature Grans % 0.1; Lymphocytes % 11.5; MCH 31.6 pg (27.0-33.0); MCHC 31.6 % (32.0-36.0); MPV 10.3 fL (8.0-11.0); Monocytes % 7.3; Neutrophils % 80.1; Nucleated RBC 0 %; Platelet Count 267 10^3/uL (130-400); RBC 2.75 10^6/uL (4.36-5.78); RDW 13.9 % (11.8-14.1); RDW-SD 50.3 fL; WBC 7.55 10^3/uL (4.4-10.8)
== END 2020-04-05 21:13 ==
LOC: LBN 20:53
PROVIDERS: PCP Family Medicine; Visit Provider Nurse Practitioner Adult Health
DX: N18.9 Chronic kidney disease, unspecified (principal); J44.9 Chronic obstructive pulmonary disease, unspecified
CPT/HCPCS: 85025

== ENCOUNTER 2020-04-15 16:37 | Outpatient (REF) | payer MEDICARE, SELFPAY ==
[2020-04-16 20:31] LABS: Influenza A RNA Result Negative (Negative); Influenza B RNA Result Negative (Negative); RSV RNA Result Negative (Negative)
== END 2020-04-15 16:57 ==
LOC: LBN 16:37
PROVIDERS: PCP Family Medicine; Visit Provider Nurse Practitioner Adult Health
DX: Z11.59 Encounter for screening for other viral diseases (principal)
CPT/HCPCS: 87449; 87631

== ENCOUNTER 2020-05-19 21:50 | Inpatient (IN) | payer MEDICARE, MEDICAID, SELFPAY ==
[2020-05-19] VITALS (15 sets, daily range): BP systolic 94–138; BP diastolic 56–73; PULSE 94–107; RESP 14–25; TEMP 36.5; O2SAT 84–95
--- NOTE | 2020-05-19 22:00 | DI.CT_ITS ---
EXAM: CT NECK WO CLINICAL HISTORY: difficulty swallowing, ?foreign body. TECHNIQUE: Imaging Protocol: Axial CT angiography was performed with multi-slice acquisition and mu lti-planar and/or 3D reconstructions. CONTRAST MATERIAL: Intravenous: None COMPARISON: Brain CT scan was reviewed. FINDINGS: Please note that this is not a CTA study. The nasopharynx, and hypopharynx as well as the larynx and subglottic airway appear unremarkable. At the level of the oropharynx the uvula is prominent in size. There is no abnormality of the retropha ryngeal space. Both parotid glands as well as both submandibular glands appear unremarkable as does the thyroid gland. There is no obvious lymphadenopathy in the neck evident on this noninfused study. Visualized paranasal sinuses are clear. Osseous: Degenerative changes. There is also partial fusion of the posterior osseous elements of C2 and C3. No fractures nor facet malalignment. Multilevel degenerative changes in the facet joints as well as chronic degenerative disc disease in the lower cervical spine noted IMPRESSION: 1. The uvula is prominent in size. Direct visualization recommended. ENT consult recommended. 2. No other significant soft tissue findings on this noninfused study. 3. Please note that this is not a CTA study RADIATION DOSE DELIVERED: 517.42mGy.cm Total DLP DATA REPOSITORY: All CT scans at this facility are submitted to the National Radiology Data Registry (NRDR) Dose Index Registry (DIR) with the [employer] (ACR). RADIATION OPTIMIZATION: All CT scans at this facility use at least one of these dose optimization te chniques: automated exposure control; mA and/or kV adjustment per patient size (includes targeted exa ms where dose is matched to clinical indication); or iterative reconstruction.
--- NOTE | 2020-05-19 22:00 | DI.CT_ITS ---
EXAM: CT CHEST/ABD/PEL WO CLINICAL HISTORY: ?aspiration vs sbo. TECHNIQUE: Imaging Protocol: Axial computed tomography images with coronal and sagittal reformatted images were created and reviewed CONTRAST MATERIAL: Intravenous: Omnipaque 350 Contrast volume:100 ml Oral: None COMPARISON: CT RENAL COLIC WO CONTRAST from 10/12/2017 FINDINGS: CHEST: LUNGS: There is mild infiltrate in left lower lobe basal segments. No pleural effusions on either si de. No ominous pulmonary nodules. MEDIASTINUM: There is no hilar nor mediastinal adenopathy. Visualized thyroid unremarkable. CARDIAC: Heart size is normal. There is no pericardial effusion.Caliber of the thoracic aorta is wit hin normal limits. OSSEOUS: Partially healed fractures the right 9, 10, 11 ribs. No left rib fractures evident.. ABDOMEN: There is no ascites. LIVER: There are no focal hepatic lesions nor dilatation of intrahepatic ducts. GALLBLADDER/BILIARY: No obvious gallbladder pathology. CBD is not dilated. PANCREAS: No evidence of pancreatic mass nor dilatation of the pancreatic duct. Few parenchymal calc ifications are noted in the uncinate process of the pancreas. SPLEEN: Spleen size is slightly prominent. There are no obvious intrasplenic lesions. ADRENALS: There are no significant adrenal masses. KIDNEYS: There is a tiny 1 millimeter nonobstructive calculus in the superior pole calyx of the right kidney.. No hydronephrosis nor hydroureter no other significant focal findings in either kidney. ABDOMINAL AORTA: Abdominal aorta is not enlarged and there is no [id number] adenopat hy. ABDOMINAL WALL/GI: No evidence of significant anterior abdominal wall hernia. No bowel obstruction. PELVIS: LYMPH NODES: There is no intrapelvic nor inguinal adenopathy. GI: No evidence of appendicitis.No evidence of sigmoid diverticulitis. URINARY BLADDER: Thick-walled but collapsed around Wihtt catheter. Slight asymmetry in the anterior left side of the urinary bladder wall. Cannot rule out neoplasm at this level. REPRODUCTIVE: There is a penile implant noted. [place] via the inguinal canal right side. Prostat e gland is not enlarged. OSSEOUS: No significant osseous lesions. IMPRESSION: 1. Mild splenomegaly. 2. Mild infiltrate in the left lower lobe. No pleural effusions no obvious intrathoracic adenopathy. 3. Tiny nonobstructive 1 millimeter calculus in the right kidney. 4. Thick-walled urinary bladder collapsed around a Whitt catheter. Possible wall neoplasm anterior l eft side of urinary bladder. 5. There are nonacute appearing fractures of the right 9th, 10th, and 11th ribs. No lytic osseous l esions identified. 6. Penile implant device incidentally noted. RADIATION DOSE DELIVERED: 1,170.16mGy.cm Total DLP DATA REPOSITORY: All CT scans at this facility are submitted to the National Radiology Data Registry (NRDR) Dose Index Registry (DIR) with the [employer] (ACR). RADIATION OPTIMIZATION: All CT scans at this facility use at least one of these dose optimization te chniques: automated exposure control; mA and/or kV adjustment per patient size (includes targeted exa ms where dose is matched to clinical indication); or iterative reconstruction.
--- NOTE | 2020-05-19 22:00 | DI.CT_ITS ---
EXAM: CT HEAD - STROKE PROTOCOL CLINICAL HISTORY: difficulty swallowing and weakness. TECHNIQUE: Imaging Protocol: Axial computed tomography images with coronal and sagittal reformatted images were created and reviewed COMPARISON: Prior CT scan August 2019 FINDINGS: There are no skull fractures nor fluid in the visualized paranasal sinuses. Very small amount of fl uid seen in the right mastoid air cells. There is no evidence of intracranial hemorrhage, mass effect, or shift of midline structures. There are no extra-axial fluid collections. The ventricles are not enlarged or shifted and there is no blo od within the ventricular system nor within the basal cisterns. Evidence of previous infarct in the right cerebellar hemispheres again noted. Also lacunar infarct i n the left side of the marco antonio and pulvinar of the left thalamus. Periventricular hypodensity again not ed consistent with chronic small vessel disease and there are few nonhemorrhagic periventricular coul d nor infarcts again noted. IMPRESSION: No acute intracranial findings on this noninfused CT scan of the brain. Chronic ischemic changes again noted. If clinically indicated follow-up MRI with diffusion imaging can be performed to determine if there i s an acute ischemic event. RADIATION DOSE DELIVERED: 894.77mGy.cm Total DLP DATA REPOSITORY: All CT scans at this facility are submitted to the National Radiology Data Registry (NRDR) Dose Index Registry (DIR) with the [employer] ([employer]). RADIATION OPTIMIZATION: All CT scans at this facility use at least one of these dose optimization te chniques: automated exposure control; mA and/or kV adjustment per patient size (includes targeted exa ms where dose is matched to clinical indication); or iterative reconstruction.
--- NOTE | 2020-05-19 22:06 | W.ED.GENAD ---
Discharge Plan Disposition Patient Disposition: [facility] INPATIENT Condition: Stable Discharge Details Clinical Impression: Difficulty in swallowing, Cerebrovascular disease, Vomiting, Urinary tract infection Primary Care Provider: Isak Magana ED Provider: Timbo Taylor [place] Meds and New Rx's Prescriptions: No Action magnesium oxide 400 mg magnesium tablet 400 mg PO DAILY RF: 0 Xarelto 15 mg tablet 15 mg PO DAILY RF: 0 levetiracetam 750 mg tablet 750 mg PO BID RF: 0 furosemide 40 mg tablet 40 mg PO DAILY RF: 0 lidocaine [Lidoderm] 5 % adhesive patch,medicated 1 patch topical DAILY RF: 0 tramadol 50 mg tablet 25 mg PO Q8H PRNRF: 0 phenazopyridine [Pyridium] 100 mg tablet 100 mg PO TID PRNRF: 0 omeprazole 40 MG capsule,delayed release(DR/EC) 40 mg PO DAILY Qty: 60 RF: 3 multivitamin 1 EACH tablet 1 tab PO DAILY RF: 0 sertraline 100 MG tablet 100 mg PO DAILY RF: 0 atorvastatin [Lipitor] 40 MG tablet 80 mg PO HS RF: 0 insulin aspart U-100 [Novolog Flexpen U-100 Insulin] 100 unit/mL (3 mL) Insulin Pen 0 units subcut AC & HS Qty: 0 RF: 0 Lantus Solostar U-100 Insulin 100 unit/mL (3 mL) Insulin Pen 15 units subcut BID Qty: 0 RF: 0 metoprolol tartrate 25 mg tablet 12.5 mg PO DAILY RF: 0 potassium chloride 20 mEq tablet,ER particles/crystals 20 meq PO BID Qty: 20 RF: 0 fluticasone propion-salmeterol [Advair Diskus] 250-50 mcg/dose Blister With Device 1 inh INHALATION BID RF: 0 diltiazem HCl [DILT-XR] 240 mg Capsule,Ext.Rel 24h Degradable 240 mg PO DAILY RF: 0 melatonin 3 mg Tablet 3 mg PO HS PRNRF: 0 albuterol sulfate [ProAir HFA] 90 mcg/actuation Hfa Aerosol Inhaler 2 puff INHALATION Q6H PRNRF: 0 finasteride 5 mg Tablet 5 mg PO DAILY RF: 0 tamsulosin 0.4 MG capsule 0.8 mg PO DAILY Qty: 60 RF: 0 oxybutynin chloride 5 mg tablet 5 mg PO BID RF: 0 amoxicillin-pot clavulanate 875-125 mg tablet 1 tab PO BID RF: 0 nitrofurantoin monohyd/m-cryst 100 mg capsule 100 mg PO DAILY RF: 0 insulin aspart U-100 [Novolog Flexpen U-100 Insulin] 300 UNITS/3 ML insulin pen 24 unit SQ BID RF: 0 acetaminophen 325 mg tablet 650 mg PO PRN PRN (Reason: Pain) RF: 0 Medical Decision Making 74 yo male with hx of afib on rivaroxeban, copd, who resides at [facility] and has hx of impaired gastric emptying on study in 2017 and egd showing barrets esophagus, who comes in with ems with trouble swallowing all day today per patient and tonight was vomitting up anything that he ate and couldn't keep anything down. He denies any nausea and states the vomit is because he can't swallow and it gets stuck in the esopagus. He denies chest pain, dyspnea, though does have room air saturations intermittently in the mid 80's but ranges from 85-95 on room air, no abdominal pain. He also notes mild general weakness no focal deficits or deficits with sensation. Has no cranial nerve deficits on my exam and nih is 0 but when he does try to swallow water he can initially swallow it but then comes back up as he can't get it down into the stomach. Suspect his symptoms are from his prior known slow gastric emptying but given symptoms will obtain ct head to evaluate for cva, outside tpa window and is on anticoagulation so not a lytic candidate. Will also obtain ct neck to evaluate for possible foreign body, ct chest to evaluate for aspiration vs pneumonia and also abd/pelvis to evaluate for sbo. pt remains stable oxygen saturation on room air 90% and given lung exam findings of mild crackles on exam in both lower lung huerta suspect aspiration pneumonitis, imaging all negative for acute pathology. He is still unable to swallow any liquids or food and immediately has to spit it up or throw it up, given this will admit for observation and possible surgical consult for endoscopy Dr. cedillo accepted for admission and urine came back positive for nitrites so will cover with ceftriaxone. Differential Diagnosis Differential Diagnosis: food obstruction, gastroparesis, aspiration, Medical Records Medical records reviewed: Yes I reviewed the patient's medical records. Imaging Data Radiologic Study: Attestation: I personally reviewed and interpreted this imaging study as follows: Imaging: CT Scan Radiologist's impression: COMPARISON: CT HEAD WO 08/28/2019 6:26 AM FINDINGS: Brain: Generalized atrophy and chronic white matter ischemic changes. There is no mass, acute hemorrhage or acute infarct. Cerebral ventricles: No ventriculomegaly. Bones/joints: Unremarkable. No acute fracture. Paranasal sinuses: Visualized sinuses are unremarkable. No fluid levels. Mastoid air cells: Visualized mastoid air cells are well aerated. Soft tissues: Unremarkable. IMPRESSION: No acute abnormality. Radiologic Study #2: Attestation: I personally reviewed and interpreted this imaging study as follows: Imaging: CT Scan Radiologist's impression: no acute findings on ct neck Radiologic Study #3: Attestation: I personally reviewed and interpreted this imaging study as follows: Imaging: CT Scan Radiologist's impression: no acute findings on ct chest/abd/pelvis Lab Data Lab results reviewed: Yes I reviewed the patient's lab results. HPI General Mode of arrival: EMS. Date/Time Provider Initiated Documentation: 05/19/20 21:50. Limitations to Documentation: no limitations. Information obtained by: patient. History of Present Illness 74 year old M presents to the emergency department with the chief complaint of trouble swallowing, described as moderate, Patient started experiencing this day(s) (1) and it has been constant. No relieving factors improve symptom(s), No exacerbating factors reported . Patient notes no other symptoms.. Patient did receive the following treatments prior to arrival, none Related Data Home Medications Medication Instructions Recorded Confirmed multivitamin 1 tab PO DAILY 02/08/15 05/19/20 sertraline 100 mg PO DAILY 02/08/15 05/19/20 omeprazole 40 mg PO DAILY #60 tab-cap 08/14/16 05/19/20 atorvastatin [Lipitor] 80 mg PO HS tab 10/18/17 05/19/20 albuterol sulfate [ProAir HFA] 2 puff INHALATION Q6H PRN 12/04/18 05/19/20 diltiazem HCl [DILT-XR] 240 mg PO DAILY 12/04/18 05/19/20 finasteride 5 mg PO DAILY 12/04/18 05/19/20 fluticasone propion-salmeterol 1 inh INHALATION BID 12/04/18 05/19/20 [Advair Diskus] melatonin 3 mg PO HS PRN 12/04/18 05/19/20 tamsulosin 0.8 mg PO DAILY #60 cap 12/06/18 05/19/20 Lantus Solostar U-100 Insulin 15 units SUBCUT BID #0 ml 03/16/19 05/19/20 insulin aspart U-100 [Novolog 0 units SUBCUT AC & HS #0 ml 03/16/19 05/19/20 Flexpen U-100 Insulin] magnesium oxide 400 mg PO DAILY 05/18/19 05/19/20 rivaroxaban 15 mg tablet 15 mg PO DAILY 05/18/19 05/19/20 metoprolol tartrate 12.5 mg PO DAILY 08/28/19 05/19/20 potassium chloride 20 meq PO BID #20 tab 08/28/19 05/19/20 furosemide 40 mg tablet 40 mg PO DAILY 01/10/20 05/19/20 levetiracetam 750 mg tablet 750 mg PO BID 01/10/20 05/19/20 lidocaine 5 % topical patch 1 patch TOPICAL DAILY 01/10/20 01/10/20 phenazopyridine 100 mg tablet 100 mg PO TID PRN 01/10/20 05/19/20 tramadol 50 mg tablet 25 mg PO Q8H PRN tab 01/10/20 05/19/20 acetaminophen 650 mg PO PRN PRN 05/19/20 05/19/20 amoxicillin-pot clavulanate 1 tab PO BID 05/19/20 05/19/20 insulin aspart U-100 [Novolog 24 unit SQ BID 05/19/20 05/19/20 Flexpen U-100 Insulin] nitrofurantoin monohyd/m-cryst 100 mg PO DAILY 05/19/20 05/19/20 oxybutynin chloride 5 mg PO BID 05/19/20 05/19/20 Previous Rx's Medication Instructions Recorded atorvastatin [Lipitor] 80 mg PO HS tab 10/18/17 tamsulosin 0.8 mg PO DAILY #60 cap 12/06/18 Lantus Solostar U-100 Insulin 15 units SUBCUT BID #0 ml 03/16/19 insulin aspart U-100 [Novolog 0 units SUBCUT AC & HS #0 ml 03/16/19 Flexpen U-100 Insulin] potassium chloride 20 meq PO BID #20 tab 08/28/19 Allergies Allergy/AdvReac Type Severity Reaction Status Date / Time No Known Allergies Allergy Unverified 05/19/20 21:55 General Stated Complaint: GenMedical KAELA: 3 Review of Systems All systems reviewed & are unremarkable except as noted in HPI and below Constitutional Constitutional: Denies chills and Denies fever(s) Cardiovascular Cardiovascular: Denies chest pain and Denies dyspnea Respiratory Respiratory: Denies cough and Denies dyspnea Gastrointestinal Gastrointestinal: Denies abdominal pain PFS Medical History (Updated 05/19/20 @ 23:16 by Timbo Taylor MD) Cerebrovascular disease CVA CKD (chronic kidney disease) COPD (chronic obstructive pulmonary disease) Diabetes Diabetic gastroenteropathy GERD (gastroesophageal reflux disease) HTN (hypertension) Hyperlipidemia Seizure Urinary retention Surgical History EGD - MAC (07/28/16) S/P insertion of penile implant S/P prostatectomy Social History Smoking/Tobacco Use Status: Former Tobacco Use Smoking risk assessment performed?: Yes Alcohol Intake: never Drug use: Never Substance use type: does not use Household members: children 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 What is your relationship status?: Panel score (0-1 are the most socially isolated patients): 0 Seatbelt use: never Do you feel safe at home: Yes Do you feel safe in your relationship?: Yes Exam Const General: no acute distress Orientation: alert HENMT Head: normal to inspection Ears: external ears normal General nose exam: external nose normal Mouth: moist mucous membranes Eyes General: appearance normal, both eyes and all related structures Neck Neck: normal visual inspection Resp Effort & Inspection: normal respiratory effort and able to speak in complete sentences Cardio Rate: regular rate GI Palpation: soft Skin General skin exam: no rashes or lesions noted Neuro General: patient alert and patient oriented x3 Extrem General: normal to inspection Psych Mental Status: mental status grossly normal Course Vital Signs Vital signs: Vital Signs Temperature 36.5 C 05/19/20 21:48 Pulse 106 H 05/19/20 21:48 Respiratory Rate 15 05/19/20 21:48 Blood Pressure 117/60 05/19/20 21:48 Pulse Oximetry 95 05/19/20 21:48 Temperature 36.5 C 05/19/20 21:48 Pulse 106 H 05/19/20 21:48 Respiratory Rate 15 05/19/20 21:48 Respiratory Effort 05/19/20 21:56 Respiratory Pattern Normal 05/19/20 21:56 Blood Pressure 117/60 05/19/20 21:48 Pulse Oximetry 95 05/19/20 21:48 Pain Level 1 05/19/20 21:48
[2020-05-19 22:15] LABS: Abs Immature Grans 0.07 10^3/uL (0.0-0.06); Absolute Basophil Count 0.03 10^3/uL (0.0-0.2); Absolute Eosinophil Count 0.14 10^3/uL (0.0-0.7); Absolute Lymphocyte Count 0.67 10^3/uL (1.2-3.4); Absolute Monocyte Count 0.65 10^3/uL (0.1-0.8); Absolute Neutrophil Count 13.59 10^3/uL (1.2-6.7); Basophils % 0.2; Eosinophils % 0.9; HCT 31.6 % (40.0-50.0); HGB 10.1 g/dL (13.5-17.5); Immature Grans % 0.5; Lymphocytes % 4.4; MCH 31.9 pg (27.0-33.0); MCV 99.7 fL (80-95); MPV 9.8 fL (8.0-11.0); Monocytes % 4.3; Neutrophils % 89.7; Nucleated RBC 0 %; Platelet Count 289 10^3/uL (130-400); RBC 3.17 10^6/uL (4.36-5.78); RDW 13.1 % (11.8-14.1); RDW-SD 48.5 fL; WBC 15.15 10^3/uL (4.4-10.8)
[2020-05-19 22:35] LABS: ALT 15 U/L (16-63); AST 18 U/L (15-37); Albumin 2.8 g/dL (3.4-5.0); Alkaline Phosphatase 98 U/L (46-116); Anion Gap 9.8 mmol/L (3-11); BUN 38 mg/dL (7-18); Bilirubin, Direct 0.11 mg/dL (0.00-0.20); Bilirubin, Total 0.5 mg/dL (0.2-1.0); CO2 26.2 mmol/L (21.0-32.0); CREATININE 2.63 mg/dL (0.70-1.30); Calcium 8.8 mg/dL (8.5-10.1); Chloride 105 mmol/L (98-107); Estimated GFR 23.87 (mL/min/1.73m2); Glucose 107 mg/dL (74-106); Lipase 41 U/L (73-393); Magnesium 1.8 mg/dL (1.8-2.4); Potassium 4.1 mmol/L (3.5-5.1); Sodium 141 mmol/L (136-145); Total Protein 6.8 g/dL (6.4-8.2)
--- NOTE | 2020-05-19 22:35 | DI.VRAD_ITS ---
PROCEDURE INFORMATION: Exam: CT Head Without Contrast Exam date and time: 05/19/2020 10:06 PM Age: 74 years old Clinical indication: Other: Weakness and difficulty swallowing TECHNIQUE: Imaging protocol: Computed tomography of the head without contrast. Radiation optimization: All CT scans at this facility use at least one of these dose optimization techniques: automated exposure control; mA and/or kV adjustment per patient size (includes targeted exams where dose is matched to clinical indication); or iterative reconstruction. Other technique: STROKE PROTOCOL was implemented. COMPARISON: CT HEAD WO 08/28/2019 6:26 AM FINDINGS: Brain: Generalized atrophy and chronic white matter ischemic changes. There is no mass, acute hemorrhage or acute infarct. Cerebral ventricles: No ventriculomegaly. Bones/joints: Unremarkable. No acute fracture. Paranasal sinuses: Visualized sinuses are unremarkable. No fluid levels. Mastoid air cells: Visualized mastoid air cells are well aerated. Soft tissues: Unremarkable. IMPRESSION: No acute abnormality. ASSESSMENT: ASPECTS ([place] Stroke Program Early CT Score) is 10. Dictated and Authenticated by: Zoraida Coronado MD. Ordering:KRISS Izquierdo MD
--- NOTE | 2020-05-19 22:37 | DI.VRAD_ITS ---
PROCEDURE INFORMATION: Exam: CT Neck Without Contrast Exam date and time: 05/19/2020 10:12 PM Age: 74 years old Clinical indication: Dysphagia / difficulty swallowing; Patient HX: Difficulty swallowing, ? foreign body TECHNIQUE: Imaging protocol: Computed tomography images of the neck without contrast. Radiation optimization: All CT scans at this facility use at least one of these dose optimization techniques: automated exposure control; mA and/or kV adjustment per patient size (includes targeted exams where dose is matched to clinical indication); or iterative reconstruction. COMPARISON: MR CERVICAL SPINE WO 02/22/2019 2:57 PM FINDINGS: Paranasal sinuses: There is scattered mucosal thickening in the paranasal sinuses. Nasopharynx: Unremarkable. Oropharynx: Unremarkable. No significant tonsillar enlargement. Hypopharynx: Unremarkable. Larynx: Unremarkable. Normal epiglottis. Retropharyngeal space: Unremarkable. Submandibular/Parotid glands: Normal. Glands are normal in size. Thyroid: Normal. No enlarged or calcified nodules. Lymph nodes: Unremarkable. No lymphadenopathy. Trachea: Visualized trachea is unremarkable. Lungs: Moderate bilateral centrilobular emphysematous changes are present. Bones/joints: Degenerative changes of the spine without acute osseous abnormality. There is straightening of the normal cervical lordosis. Soft tissues: Unremarkable. No significant soft tissue swelling. IMPRESSION: No acute abnormality. Dictated and Authenticated by: Zoraida Coronado MD. Ordering:KRISS Izquierdo MD
[2020-05-19 22:40] LABS: INR 1.1 (0.9-1.1); PTT Activated 27.2 sec (21.0-27.5); Prothrombin Time 10.8 sec (9.3-11.0)
--- NOTE | 2020-05-19 22:56 | DI.VRAD_ITS ---
PROCEDURE INFORMATION: Exam: CT Chest Without Contrast; Diagnostic Exam date and time: 05/19/2020 10:29 PM Age: 74 years old Clinical indication: Abdominal pain; Chest pain; Type not specified; Prior surgery; Surgery date: 6+ months; Surgery type: Prostatectomy, penile implant; Patient HX: ? Aspiration vs sbo TECHNIQUE: Imaging protocol: Diagnostic computed tomography of the chest without contrast. Radiation optimization: All CT scans at this facility use at least one of these dose optimization techniques: automated exposure control; mA and/or kV adjustment per patient size (includes targeted exams where dose is matched to clinical indication); or iterative reconstruction. COMPARISON: CR XR CHEST 2V PA LATERAL 03/10/2019 3:45 PM FINDINGS: Lungs: Moderate bilateral centrilobular emphysematous changes are present. There is minimal bibasilar atelectasis or scarring. Pleural space: Unremarkable. No pneumothorax. No pleural effusion. Heart: There is coronary artery calcification. Aorta: Unremarkable. No aortic aneurysm. Lymph nodes: Unremarkable. No enlarged lymph nodes. Bones/joints: Unremarkable. No acute fracture. Soft tissues: Unremarkable. IMPRESSION: No acute abnormality. PROCEDURE INFORMATION: Exam: CT Abdomen And Pelvis Without Contrast Exam date and time: 05/19/2020 10:29 PM Age: 74 years old Clinical indication: Abdominal pain; Chest pain; Type not specified; Prior surgery; Surgery date: 6+ months; Surgery type: Prostatectomy, penile implant; Patient HX: ? Aspiration vs sbo TECHNIQUE: Imaging protocol: Computed tomography of the abdomen and pelvis without contrast. Radiation optimization: All CT scans at this facility use at least one of these dose optimization techniques: automated exposure control; mA and/or kV adjustment per patient size (includes targeted exams where dose is matched to clinical indication); or iterative reconstruction. COMPARISON: CR XR CHEST 2V PA LATERAL 03/10/2019 3:45 PM FINDINGS: Liver: Normal. No mass. Gallbladder and bile ducts: Normal. No calcified stones. No ductal dilation. Pancreas: Normal. No ductal dilation. Spleen: Normal. No splenomegaly. Adrenal glands: Normal. No mass. Kidneys and ureters: Normal. No hydronephrosis. Stomach and bowel: Moderate to large stool burden in the colon. Create Appendix: A normal appendix is identified. Intraperitoneal space: Unremarkable. No free air. No significant fluid collection. Vasculature: Unremarkable. No abdominal aortic aneurysm. Lymph nodes: Unremarkable. No enlarged lymph nodes. Urinary bladder: Apparent bladder wall thickening , which is decompressed by a Whitt catheter. No mass or stones. Reproductive: Penile implant. The prostate gland and seminal vesicles are normal. Bones/joints: Degenerative changes of the spine without acute osseous abnormality. Soft tissues: Unremarkable. IMPRESSION: No acute abnormality. Dictated and Authenticated by: Zoraida Coronado MD. Ordering:KRISS Izquierdo MD
[2020-05-19 22:57] LABS: Bilirubin Negative (Negative); Blood Moderate (Negative); Clarity Clear (Clear); Glucose Negative (Negative); Ketones Negative (Negative); Leukocyte Esterase Small (Negative); Nitrite Positive (Negative); Urobilinogen 0.2 EU/dL (Up TO 0.2); pH 6.5 (5-8)
[2020-05-19 23:09] LABS: Epithelial Cells Few HPF (Negative); Other Cells Negative (Negative); RBC 20-50 HPF (0-2); WBC >50 HPF (0-5)
[2020-05-19 23:10] LABS: Bacteria Negative HPF (Negative); C & S Indicated? Yes; Casts Negative LPF (Negative); Crystals Moderate Amorphous HPF (Negative); Mucus Trace (Negative)
[2020-05-19] MEDS: Normal Saline 1,000 ML 125 ML IV (23:21)
[2020-05-19] MEDS: cefTRIAXone 2 GM/50 ML BAG IVPB (23:28)
[2020-05-20] VITALS (26 sets, daily range): BP systolic 113–147; BP diastolic 70–79; PULSE 88–97; RESP 1–20; TEMP 34–37.3; O2SAT 91–99
--- NOTE | 2020-05-20 06:03 | W.PM.HP.N ---
Date of service: 05/19/20 Time of Service: 23:26 Assessment and Plan Assessment and plan (1) Difficulty in swallowing: Status: Acute Assessment and plan: By history he likely has food lodged in esophagus vs esophageal irritation/abrasion. Daytime hospitalist to d/w general surgery. His more essential daily medications were reconciled but proceed to administer with caution. IV hydration. Qualifiers: Dysphagia type: esophageal phase Qualified Code(s): R13.10 - Dysphagia, unspecified (2) Urinary tract infection: Status: Acute Assessment and plan: Pyuria. Rocephin given in ED but changed to Imipenem/Cilastatin d/t h/o resistant E.Coli UTI. Cx pending. (3) Vascular dementia: Status: Acute Assessment and plan: No behavioral difficulties noted. (4) Paroxysmal atrial fibrillation: Status: Chronic Assessment and plan: Telemetry. On diltiazem and metoprolol for rate control. Xarelto for AC. (5) Diabetes type 2, controlled: Status: Chronic Assessment and plan: Is NPO FSBS Q6H SS insulin. A1c ordered. 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 (7) CKD (chronic kidney disease): Status: Acute Assessment and plan: Creatinine is within his normal baseline range. (8) COPD (chronic obstructive pulmonary disease): Status: Chronic Assessment and plan: On Advair; therapeutic substitution with Symbicort. Schedule Duonebs. Prn albuterol. Given 60mg IV Solu-medrol for possible pneumonitis. History of Present Illness History of Present Illness Chief Complaint: Difficulty swallowing Narrative: This is a 74 yo female with a PMH of Vascular dementia, PAF, CKD, COPD, CVA Urinary retention, DM2, seizure d.o. [facility] resides [facility]. He presented to the ED with c/o difficulty swallowing since early in the day of admission. He endorsed that anything he ate he would have to vomit back up d/t inability to swallow. He felt something was stuck in his esophagus. No nausea. No CP. No focal motor findings/weakness noted. No facial droop. He can make a swallowing effort. He has a h/o impaired gastric emptying noted on a study in 2017. EGD showed Barretts esophagus. In the ED his RA O2 saturation ranged from 85-95%. Mild crackles were noted in the bases, suspicious for aspiration pneumonitis. CT chest showed emphysematous changes but no acute findings. His urine was positive for nitrites and WBCs; Rocephin administered and urine sent for culture. WBC count elevated at 15.15, Hgb 10.1 (in his normal baseline range). K normal. BUN 38, creatinine 2.63 (in his normal baseline range). Glucose 107. CT head negative for acute findings. Review of Systems All systems reviewed & are unremarkable except as noted in HPI and below and Unobtainable due to (Mostly answers by nodding head; difficulty talking d/t congestion.) [facility] Medical History (Updated 05/20/20 @ 06:21 by Reggie Campos MD) Cerebrovascular disease CVA CKD (chronic kidney disease) COPD (chronic obstructive pulmonary disease) Diabetes Diabetic gastroenteropathy GERD (gastroesophageal reflux disease) HTN (hypertension) Hyperlipidemia Seizure Urinary retention Surgical History EGD - MAC (07/28/16) S/P insertion of penile implant S/P prostatectomy Social History Smoking/Tobacco Use Status: Former Tobacco Use Smoking risk assessment performed?: Yes Alcohol Intake: never Drug use: Never Substance use type: does not use Household members: children 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 What is your relationship status?: Panel score (0-1 are the most socially isolated patients): 0 Seatbelt use: never Do you feel safe at home: Yes Do you feel safe in your relationship?: Yes Meds Home Medications and Allergies Home Medications Medication Instructions Recorded Confirmed Type multivitamin 1 tab PO DAILY 02/08/15 05/19/20 History sertraline 100 mg PO DAILY 02/08/15 05/19/20 History omeprazole 40 mg PO DAILY #60 tab-cap 08/14/16 05/19/20 History atorvastatin [Lipitor] 80 mg PO HS tab 10/18/17 05/19/20 Rx albuterol sulfate [ProAir HFA] 2 puff INHALATION Q6H PRN 12/04/18 05/19/20 History diltiazem HCl [DILT-XR] 240 mg PO DAILY 12/04/18 05/19/20 History finasteride 5 mg PO DAILY 12/04/18 05/19/20 History fluticasone propion-salmeterol 1 inh INHALATION BID 12/04/18 05/19/20 History [Advair Diskus] melatonin 3 mg PO HS PRN 12/04/18 05/19/20 History tamsulosin 0.8 mg PO DAILY #60 cap 12/06/18 05/19/20 Rx Lantus Solostar U-100 Insulin 15 units SUBCUT BID #0 ml 03/16/19 05/19/20 Rx insulin aspart U-100 [Novolog 0 units SUBCUT AC & HS #0 ml 03/16/19 05/19/20 Rx Flexpen U-100 Insulin] magnesium oxide 400 mg PO DAILY 05/18/19 05/19/20 History rivaroxaban 15 mg tablet 15 mg PO DAILY 05/18/19 05/19/20 History metoprolol tartrate 12.5 mg PO DAILY 08/28/19 05/19/20 History potassium chloride 20 meq PO BID #20 tab 08/28/19 05/19/20 Rx furosemide 40 mg tablet 40 mg PO DAILY 01/10/20 05/19/20 History levetiracetam 750 mg tablet 750 mg PO BID 01/10/20 05/19/20 History lidocaine 5 % topical patch 1 patch TOPICAL DAILY 01/10/20 01/10/20 History phenazopyridine 100 mg tablet 100 mg PO TID PRN 01/10/20 05/19/20 History tramadol 50 mg tablet 25 mg PO Q8H PRN tab 01/10/20 05/19/20 History acetaminophen 650 mg PO PRN PRN 05/19/20 05/19/20 History amoxicillin-pot clavulanate 1 tab PO BID 05/19/20 05/19/20 History insulin aspart U-100 [Novolog 24 unit SQ BID 05/19/20 05/19/20 History Flexpen U-100 Insulin] nitrofurantoin monohyd/m-cryst 100 mg PO DAILY 05/19/20 05/19/20 History oxybutynin chloride 5 mg PO BID 05/19/20 05/19/20 History Allergies Allergy/AdvReac Type Severity Reaction Status Date / Time No Known Allergies Allergy Unverified 05/19/20 21:55 Exam Const General: cooperative and no acute distress Nutritional Appearance: average body habitus Orientation: alert [facility] Head: normocephalic and atraumatic Neck Neck: full ROM and supple Resp Effort & Inspection: normal respiratory effort Auscultation: rhonchi upper bilaterally Cardio Jugular venous pressure: no JVD Rate: regular rate Rhythm: regular rhythm Heart Sounds: S1 normal and S2 normal GI Palpation: soft and nontender Auscultation: normal bowel sounds Skin General skin exam: no rashes or lesions noted Extrem General: no pedal edema and no calf tenderness Psych Appearance: grossly normal Affect: normal affect Results Labs Result diagrams: 05/19/20 22:05 05/19/20 22:05 Labs: Laboratory Results - last 24 hr 05/19/20 05/19/20 05/19/20 22:05 22:05 22:05 WBC 15.15 H RBC 3.17 L Hgb 10.1 L Hct 31.6 L MCV 99.7 H MCH 31.9 MCHC 32.0 RDW 13.1 Plt Count 289 MPV 9.8 Immature Gran % 0.5 Neutrophils % 89.7 Lymphocytes % 4.4 Monocytes % 4.3 Eosinophils % 0.9 Basophils % 0.2 Nucleated RBC % 0 Absolute Neutrophils 13.59 H Absolute Lymphocytes 0.67 L Absolute Monocytes 0.65 Absolute Eosinophils 0.14 Absolute Basophils 0.03 PT 10.8 INR 1.1 APTT 27.2 Sodium 141 Potassium 4.1 Chloride 105 Carbon Dioxide 26.2 Anion Gap 9.8 BUN 38 H Creatinine 2.63 H Estimated GFR/1.73 m2 23.87 Glucose 107 H Calcium 8.8 Magnesium 1.8 Total Bilirubin 0.5 Conjugated Bilirubin 0.11 AST 18 ALT 15 L Alkaline Phosphatase 98 Total Protein 6.8 Albumin 2.8 L Lipase 41 Urine Color Urine Clarity Urine pH Ur Specific [place] Urine Protein Urine Ketones Urine Blood Urine Nitrite Urine Bilirubin Urine Urobilinogen Ur Leukocyte Esterase Urine RBC Urine WBC Ur Epithelial Cells Urine Crystals Urine Bacteria Urine Casts Urine Mucus Urine Other Ur Culture Indicated? Urine Glucose 05/19/20 22:50 WBC RBC Hgb Hct MCV MCH MCHC RDW Plt Count MPV Immature Gran % Neutrophils % Lymphocytes % Monocytes % Eosinophils % Basophils % Nucleated RBC % Absolute Neutrophils Absolute Lymphocytes Absolute Monocytes Absolute Eosinophils Absolute Basophils PT INR APTT Sodium Potassium Chloride Carbon Dioxide Anion Gap BUN Creatinine Estimated GFR/1.73 m2 Glucose Calcium Magnesium Total Bilirubin Conjugated Bilirubin AST ALT Alkaline Phosphatase Total Protein Albumin Lipase Urine Color Yellow Urine Clarity Clear Urine pH 6.5 Ur Specific [place] 1.020 Urine Protein >=300 H Urine Ketones Negative Urine Blood Moderate H Urine Nitrite Positive H Urine Bilirubin Negative Urine Urobilinogen 0.2 Ur Leukocyte Esterase Small H Urine RBC 20-50 H Urine WBC >50 H Ur Epithelial Cells Few Urine Crystals Moderate amorphous Urine Bacteria Negative Urine Casts Negative Urine Mucus Trace Urine Other Negative Ur Culture Indicated? Yes Urine Glucose Negative Last Vital Signs Temp 36.9 C 05/20/20 00:44 Pulse 95 H 05/20/20 00:44 Resp 18 05/20/20 00:44 BP 132/78 05/20/20 00:44 Pulse Ox 97 05/20/20 00:44 COVID-19 Screening Have you, or household traveled for leisure in last 14 days?: No Had IN PERSON contact w/suspected or confirmed C-19 person: No
[2020-05-20] MEDS: Normal Saline Flush 10 ML SYR IVP ×2 (06:28→23:18)
[2020-05-20] MEDS: Albuterol/Ipratropium 3 ML UPD VIAL UPD (06:28)
[2020-05-20] MEDS: methylPREDNISolone SUCC 125 MG VIAL 60 MG IVP ×3 (06:28→23:18)
[2020-05-20 07:22] LABS: Abs Immature Grans 0.08 10^3/uL (0.0-0.06); Absolute Basophil Count 0.03 10^3/uL (0.0-0.2); Absolute Eosinophil Count 0.11 10^3/uL (0.0-0.7); Absolute Lymphocyte Count 1.07 10^3/uL (1.2-3.4); Absolute Monocyte Count 0.86 10^3/uL (0.1-0.8); Basophils % 0.2; Eosinophils % 0.8; HCT 26.7 % (40.0-50.0); HGB 8.7 g/dL (13.5-17.5); Immature Grans % 0.6; Lymphocytes % 7.6; MCH 31.8 pg (27.0-33.0); MCHC 32.6 % (32.0-36.0); MCV 97.4 fL (80-95); MPV 10.2 fL (8.0-11.0); Monocytes % 6.1; Neutrophils % 84.7; Nucleated RBC 0 %; Platelet Count 250 10^3/uL (130-400); RBC 2.74 10^6/uL (4.36-5.78); RDW 13.2 % (11.8-14.1); RDW-SD 47.2 fL; WBC 14.14 10^3/uL (4.4-10.8)
[2020-05-20 07:25] LABS: Absolute Neutrophil Count 11.98 10^3/uL (1.2-6.7)
[2020-05-20] MEDS: Budesonide/Formoterol 160/4.5 6 GM 60 PUFF INH IH ×2 (08:14→20:05)
[2020-05-20 09:04] LABS: Hemoglobin A1C 6.3 % (<5.7)
[2020-05-20] MEDS: Normal Saline 1,000 ML 125 ML IV ×2 (09:12→18:44)
--- NOTE | 2020-05-20 10:37 | W.SURGCON ---
Date of service: 05/20/20 Time of Service: 10:38 Assessment and Plan Assessment and plan (1) Difficulty in swallowing: Status: Acute Assessment and plan: Assesment. dyspahgia, Plan appearance of the mouth and orophanyx suggests thrush, ct scan of the neck unremarkable for mass, chest and abd also unremarkable but on the neck ct the esophaus looks thick walled and not distended. The diagnostic test of choice at this time would be a barium swallow, Discussed with hospitalist team and they are going to institute rx for thrush and hold xarelto. If no improvement then futher w/u swallow possible scope Qualifiers: Dysphagia type: esophageal phase Qualified Code(s): R13.10 - Dysphagia, unspecified History of Present Illness History of Present Illness Chief Complaint: dyphagia Narrative: 74 yo gentleman admitted with dysphagia and prob aspiration pneumonia. He has dementia but answers yes no questions. States difficulty swallowing on a chronic basis now worse. C/o some discomfort in the hypopharyngeal area. Has been tolerating secretions. Pt also has a fib on xarelto and chronic kidney disease. Review of Systems Narrative: unable to obtain REPLACED BY [facility] Medical History (Updated 05/20/20 @ 06:21 by Reggie Campos MD) Cerebrovascular disease CVA CKD (chronic kidney disease) COPD (chronic obstructive pulmonary disease) Diabetes Diabetic gastroenteropathy GERD (gastroesophageal reflux disease) HTN (hypertension) Hyperlipidemia Seizure Urinary retention Surgical History EGD - MAC (07/28/16) S/P insertion of penile implant S/P prostatectomy Social History Smoking/Tobacco Use Status: Former Tobacco Use Smoking risk assessment performed?: Yes Alcohol Intake: never Drug use: Never Substance use type: does not use Household members: children 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 Results Last Vital Signs Temp 98.8 F 05/20/20 03:03 Pulse 94 H 05/20/20 07:02 Resp 16 05/20/20 08:27 BP 145/79 H 05/20/20 03:03 Pulse Ox 97 05/20/20 03:03 Labs Result diagrams: 05/20/20 06:15 05/19/20 22:05 Labs: Laboratory Results - last 24 hr 05/19/20 05/19/20 05/19/20 22:05 22:05 22:05 WBC 15.15 H RBC 3.17 L Hgb 10.1 L Hct 31.6 L MCV 99.7 H MCH 31.9 MCHC 32.0 RDW 13.1 Plt Count 289 MPV 9.8 Immature Gran % 0.5 Neutrophils % 89.7 Lymphocytes % 4.4 Monocytes % 4.3 Eosinophils % 0.9 Basophils % 0.2 Nucleated RBC % 0 Absolute Neutrophils 13.59 H Absolute Lymphocytes 0.67 L Absolute Monocytes 0.65 Absolute Eosinophils 0.14 Absolute Basophils 0.03 PT 10.8 INR 1.1 APTT 27.2 Sodium 141 Potassium 4.1 Chloride 105 Carbon Dioxide 26.2 Anion Gap 9.8 BUN 38 H Creatinine 2.63 H Estimated GFR/1.73 m2 23.87 Glucose 107 H Hemoglobin A1c Calcium 8.8 Magnesium 1.8 Total Bilirubin 0.5 Conjugated Bilirubin 0.11 AST 18 ALT 15 L Alkaline Phosphatase 98 Total Protein 6.8 Albumin 2.8 L Lipase 41 Urine Color Urine Clarity Urine pH Ur Specific [place] Urine Protein Urine Ketones Urine Blood Urine Nitrite Urine Bilirubin Urine Urobilinogen Ur Leukocyte Esterase Urine RBC Urine WBC Ur Epithelial Cells Urine Crystals Urine Bacteria Urine Casts Urine Mucus Urine Other Ur Culture Indicated? Urine Glucose 05/19/20 05/20/20 05/20/20 22:50 06:10 06:15 WBC 14.14 H RBC 2.74 L Hgb 8.7 L Hct 26.7 L MCV 97.4 H MCH 31.8 MCHC 32.6 RDW 13.2 Plt Count 250 MPV 10.2 Immature Gran % 0.6 Neutrophils % 84.7 Lymphocytes % 7.6 Monocytes % 6.1 Eosinophils % 0.8 Basophils % 0.2 Nucleated RBC % 0 Absolute Neutrophils 11.98 H Absolute Lymphocytes 1.07 L Absolute Monocytes 0.86 H Absolute Eosinophils 0.11 Absolute Basophils 0.03 PT INR APTT Sodium Potassium Chloride Carbon Dioxide Anion Gap BUN Creatinine Estimated GFR/1.73 m2 Glucose Hemoglobin A1c 6.3 H Calcium Magnesium Total Bilirubin Conjugated Bilirubin AST ALT Alkaline Phosphatase Total Protein Albumin Lipase Urine Color Yellow Urine Clarity Clear Urine pH 6.5 Ur Specific [place] 1.020 Urine Protein >=300 H Urine Ketones Negative Urine Blood Moderate H Urine Nitrite Positive H Urine Bilirubin Negative Urine Urobilinogen 0.2 Ur Leukocyte Esterase Small H Urine RBC 20-50 H Urine WBC >50 H Ur Epithelial Cells Few Urine Crystals Moderate amorphous Urine Bacteria Negative Urine Casts Negative Urine Mucus Trace Urine Other Negative Ur Culture Indicated? Yes Urine Glucose Negative
[2020-05-20] MEDS: Pantoprazole 40 MG VIAL IVP (10:40)
[2020-05-20] MEDS: Metoprolol 5 MG/5 ML VIAL 2.5 MG IVP ×3 (10:40→23:20)
[2020-05-20] MEDS: ACETAMINOPHEN 1,000 MG/100 ML BTL 400 MG IVPB ×2 (10:40→18:18)
[2020-05-20] MEDS: levETIRAcetam 750 MG in Normal Saline 100 ML 400 MG IVPB ×2 (10:42→23:19)
[2020-05-20] MEDS: Lidocaine 2% Jelly 11 ML SYR UR (12:47)
--- NOTE | 2020-05-20 12:50 | W.PM.PROGNOT ---
Date of Service Date of service: 05/20/20 Time of Service: 12:50 Assessment and Plan Assessment and plan (1) Thrush: Start date: 05/20/20 Start time: 13:53 Status: Acute Assessment and plan: ON tongue and possibly in esophagus. Fluconazole IV renal dosing (2) Difficulty in swallowing: Start date: 05/20/20 Start time: 13:37 Status: Acute Assessment and plan: By history he likely has food lodged in esophagus vs esophageal irritation/abrasion. and possibly esophageal thrush Surgery consulted. Will hold xarelto for 48 hours. Patient is NPO will give fluconazole IV for thrush and methylprednisone 60 q 8 hours He was unable to swallow water or pills this morning therefore all his medications that could be were transitioned to IV . IV hydration as he is NPO Qualifiers: Dysphagia type: esophageal phase Qualified Code(s): R13.10 - Dysphagia, unspecified (3) Urinary tract infection: Start date: 05/20/20 Start time: 13:45 Status: Acute Assessment and plan: Pyuria. Rocephin given in ED but changed to Imipenem/Cilastatin d/t h/o resistant E.Coli UTI. Cx pending. Chronic indwelling vicente catheter, exchanged today (4) Vascular dementia: Start date: 05/20/20 Start time: 13:47 Status: Acute Assessment and plan: No behavioral difficulties noted. (5) Paroxysmal atrial fibrillation: Start date: 05/20/20 Start time: 13:47 Status: Chronic Assessment and plan: Telemetry. On diltiazem and metoprolol for rate control. Xarelto for AC held as above (6) Diabetes type 2, controlled: Start date: 05/20/20 Start time: 13:49 Status: Chronic Assessment and plan: NPO Fingerstick BID A1C is 6.3 will monitor fingersticks and order insulin based on FS. 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 (9) COPD (chronic obstructive pulmonary disease): Start date: 05/20/20 Start time: 13:50 Status: Chronic Assessment and plan: On Advair; therapeutic substitution with Symbicort. xoponex q 6 hours with acytlcystine q 6 hours and humdified oxygen on RA, maintain saturation between 89-94 Solumedrol 60 mg q 8 hour. above case discusssed with Dr. Hdz Subjective Subjective Patient reports: other Interval history since last seen: Elderly gentle man sitting up in chair. Lungs with severe rhonchi and very junky with mucus, he is doing self suction, humdified oxygen on RA to help thin secretion with actylcystine q6 hours to break up secretions and xoponex. He also has thrush, at his time he is unable to swallow water or pills there fore he is NPO. Surgery was consulted they agree to EGD after 48 hours of holding xarelto, strep sent, fluconazole initated for thrush and he is on methylprednisone for COPD exacerbation, which should help with prominent uvula. When trying to assess back of throat he required suctioning three times of thick mucus to visualize oral pharanax, which was severely erythemic. He was able to self suction with good results. He denies CP, SOB, N/V/D Exam Const General: cooperative and no acute distress Nutritional Appearance: average body habitus Orientation: alert [facility] Head: normocephalic and atraumatic Neck Neck: full ROM and supple Resp Effort & Inspection: normal respiratory effort Auscultation: rhonchi upper bilaterally and other (severe muciod to all parts of lungs) Cardio Jugular venous pressure: no JVD Rate: regular rate Rhythm: regular rhythm Heart Sounds: S1 normal and S2 normal GI Palpation: soft and nontender Auscultation: normal bowel sounds Skin General skin exam: no rashes or lesions noted Extrem General: no clubbing, cyanosis or edema, no pedal edema and no calf tenderness Psych Appearance: grossly normal Affect: normal affect Objective Last Vital Signs Temp 36.4 C L 05/20/20 11:43 Pulse 90 05/20/20 11:43 Resp 18 05/20/20 11:43 BP 130/78 05/20/20 11:43 Pulse Ox 95 05/20/20 11:43 Laboratory Results - last 24 hr 05/19/20 05/19/20 05/19/20 22:05 22:05 22:05 WBC 15.15 H RBC 3.17 L Hgb 10.1 L Hct 31.6 L MCV 99.7 H MCH 31.9 MCHC 32.0 RDW 13.1 Plt Count 289 MPV 9.8 Immature Gran % 0.5 Neutrophils % 89.7 Lymphocytes % 4.4 Monocytes % 4.3 Eosinophils % 0.9 Basophils % 0.2 Nucleated RBC % 0 Absolute Neutrophils 13.59 H Absolute Lymphocytes 0.67 L Absolute Monocytes 0.65 Absolute Eosinophils 0.14 Absolute Basophils 0.03 PT 10.8 INR 1.1 APTT 27.2 Sodium 141 Potassium 4.1 Chloride 105 Carbon Dioxide 26.2 Anion Gap 9.8 BUN 38 H Creatinine 2.63 H Estimated GFR/1.73 m2 23.87 Glucose 107 H Hemoglobin A1c Calcium 8.8 Magnesium 1.8 Total Bilirubin 0.5 Conjugated Bilirubin 0.11 AST 18 ALT 15 L Alkaline Phosphatase 98 Total Protein 6.8 Albumin 2.8 L Lipase 41 Urine Color Urine Clarity Urine pH Ur Specific [place] Urine Protein Urine Ketones Urine Blood Urine Nitrite Urine Bilirubin Urine Urobilinogen Ur Leukocyte Esterase Urine RBC Urine WBC Ur Epithelial Cells Urine Crystals Urine Bacteria Urine Casts Urine Mucus Urine Other Ur Culture Indicated? Urine Glucose 05/19/20 05/20/20 05/20/20 22:50 06:10 06:15 WBC 14.14 H RBC 2.74 L Hgb 8.7 L Hct 26.7 L MCV 97.4 H MCH 31.8 MCHC 32.6 RDW 13.2 Plt Count 250 MPV 10.2 Immature Gran % 0.6 Neutrophils % 84.7 Lymphocytes % 7.6 Monocytes % 6.1 Eosinophils % 0.8 Basophils % 0.2 Nucleated RBC % 0 Absolute Neutrophils 11.98 H Absolute Lymphocytes 1.07 L Absolute Monocytes 0.86 H Absolute Eosinophils 0.11 Absolute Basophils 0.03 PT INR APTT Sodium Potassium Chloride Carbon Dioxide Anion Gap BUN Creatinine Estimated GFR/1.73 m2 Glucose Hemoglobin A1c 6.3 H Calcium Magnesium Total Bilirubin Conjugated Bilirubin AST ALT Alkaline Phosphatase Total Protein Albumin Lipase Urine Color Yellow Urine Clarity Clear Urine pH 6.5 Ur Specific [place] 1.020 Urine Protein >=300 H Urine Ketones Negative Urine Blood Moderate H Urine Nitrite Positive H Urine Bilirubin Negative Urine Urobilinogen 0.2 Ur Leukocyte Esterase Small H Urine RBC 20-50 H Urine WBC >50 H Ur Epithelial Cells Few Urine Crystals Moderate amorphous Urine Bacteria Negative Urine Casts Negative Urine Mucus Trace Urine Other Negative Ur Culture Indicated? Yes Urine Glucose Negative
[2020-05-20] MEDS: Levalbuterol 1.25 MG/3 ML UPD VIAL UPD ×2 (13:01→18:22)
[2020-05-20] MEDS: Acetylcysteine 20% *ORAL/INHALED* 6000 MG/30 ML VIAL 1000 MG IH ×2 (13:11→18:39)
[2020-05-20] MEDS: Sodium Chloride 0.9% for Inhalation 15 ML VIAL 5 ML UPD ×2 (13:11→18:36)
--- NOTE | 2020-05-20 14:39 | SP_ITS ---
Date of service: 05/20/20 Time of Service: 14:58 Subjective Patient received sleeping, able to be aroused with tactile cue to arm; INTELLIGENCE CLERK spoke with Evelina HOOK re: risk management prior to EGD, including thorough oral hygiene, oral rinses as patient is able. Objective Objective DNR/DNI HPI: 74 yo male with a PMH of Vascular dementia, PAF, CKD, COPD, CVA Urinary retention, DM2, seizure disorder, h/o impaired gastric emptying noted on a study in 2017, and EGD showed Barretts esophagus. Recently presented to the ED with c/o difficulty swallowing since early in the day of admission, stating that anything he ate he would have to vomit back up d/t inability to swallow. Although he feels he is able to initiate pharyngeal swallow, he felt something was stuck in his esophagus; RN reports patient has indicated difficulties with keeping small sips of water down (will trigger vomit response), and is not taking medications orally at this time; on IV hydration, Fluconazole IV renal dosing to address thrush (oral and possibly esophageal) Pulse: 88 Resp: 20 02 Sat: 97 OME: oral cavity appears moist, with slight white coating on tongue; patient requires frequent suctioning per RN report; lingual ROM and strength appear WFL; upper dentures visible upon oral inspection CNE: limited due to lethargy; no facial droop, tongue appears symmetrical upon protrusion, palatal elevation intact b/l Mental Status: pt able to follow single directions with visual cues, then promptly falls asleep Unable to trial ice chip protocol due to lethargy, however patient is likely appropriate for trials of single ice chip via tsp with assist and only when alert, upright, and after oral care is provided, given what appears to be adequate labial seal/oral manipulation and adequate secretion management; patient appears to avoid swallow initiation given recent significant esophageal globus resulting in vomiting and associated discomfort from this. Patient denies pain when asked today, although unclear if question was fully comprehended due to lethargy. Assessment Patient is currently NPO, demonstrates difficulties with initiation of oropharyngeal swallow, however nursing staff aware of need for frequent oral care in context of risk management in context of potential aspiration of secretions. Etiology of dysphagia is likely primarily esophageal, however given COPD and potential for difficulties with swallow-breath coordination, patient is at heightened risk for pulmonary compromise in context of potential aspiration; VFSS/modified barium swallow study may be warranted (pending results from EGD, which has yet to take place) to assess oropharyngeal swallowing function. In context of respiratory deficits, patient does not appear safe for p.o. diet at this time, remains NPO with risk management as outlined below. Recommendations: Risk Management: NPO Continue thorough oral care QID with assist to reduce level of oral bacteria, maintain oral comfort HOB upright as tolerated May trial single ice chip via tsp with assist only after oral care is completed Consider VFSS/MBSS pending results from EGD Plan INTELLIGENCE CLERK to follow while on unit; patient remains NPO; VFSS may be warranted pending results from EGD. Limited swallow evaluation today given lethargy and difficulties with patient initiation of swallow. Prison Goals: N/A Short Term Goals: N/A Becca Swanson MA CCC-INTELLIGENCE CLERK [phone] INTELLIGENCE CLERK Service Code: [id number]
--- NOTE | 2020-05-20 14:56 | PDOC.CMIN ---
- If Service Date Differs Date of service: 05/20/20 Time of Service: 15:11 Care Management Initial Assess REASON FOR HOSPITALIZATION:: Difficulty swallowing, UTI, Aspiration pneumonia PAST MEDICAL HISTORY/PAST SURGICAL HISTORY:: Cerebrovascular disease, CKD, Diabetes, diabetes gastroenteropathy, GERD, HTN, Hyperlipidemia, Seizure, Urinary retention, EGD-MAC, S/P insertion of penile implant, S/P prostatectomy PREVIOUS FUNCTIONAL STATUS/SOCIAL/FAMILY SUPPORTS:: Ed resides in a single family split level style home in [place] with his son Hector. He is retired and is independent with all ADLs and care. 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 Ed identifies his son as his main support. Ed uses a walker to ambulate both in his home and when out. CURRENT FUNCTIONAL STATUS:: Ed is currently unable to speak, per provider. He likely has thrush throughout his mouth and possibly down his throat. DONNELL Hills reports he was able to form words faintly for her, but was struggling with very thick secretions at this time. CM continues to follow. ADVANCE DIRECTIVES:: COLST form on file. Has patient been provided with info about the portal/API?: Yes Did the patient sign up for the portal?: No CODE STATUS:: DNR/DNI INSURANCE COVERAGE / FINANCIAL ISSUES:: Medicare CURRENT HOME/COMMUNITY SERVICES/EQUIPMENT:: FWW, suctioning equipment PRIMARY CARE PHYSICIAN:: Dr. Isak Magana[facility] POTENTIAL DISCHARGE NEEDS:: Follow up appointments, further evaluation. PATIENT/FAMILY EDUCATION NEEDS:: Review discharge instructions, discuss Ask Me [employer]. ANTICIPATED BARRIERS TO DISCHARGE:: None identified at this time. TRANSPORTATION:: Via private vehicle with his son. PLAN:: Ed will likely discharge home when ready. He may benefit from new nursing and possibly PT. He will follow up with his PCP and discharge plan of care. CM will continue to support patient, family and discharge planning needs.
[2020-05-20 20:40] LABS: COVID-19 RT-PCR UVMMC Result Negative (Negative)
[2020-05-21] VITALS (17 sets, daily range): BP systolic 131–178; BP diastolic 66–83; PULSE 39–107; RESP 1–20; TEMP 34–37; O2SAT 94–100
[2020-05-21] MEDS: Levalbuterol 1.25 MG/3 ML UPD VIAL UPD ×2 (00:45→06:33)
[2020-05-21] MEDS: Sodium Chloride 0.9% for Inhalation 15 ML VIAL 5 ML UPD ×3 (01:14→19:01)
[2020-05-21] MEDS: Acetylcysteine 20% *ORAL/INHALED* 6000 MG/30 ML VIAL 1000 MG IH ×2 (01:15→07:14)
[2020-05-21] MEDS: ACETAMINOPHEN 1,000 MG/100 ML BTL 400 MG IVPB ×3 (01:16→17:59)
[2020-05-21] MEDS: Metoprolol 5 MG/5 ML VIAL 2.5 MG IVP ×3 (05:00→16:45)
[2020-05-21] MEDS: Normal Saline 1,000 ML 125 ML IV ×2 (05:05→14:47)
[2020-05-21] MEDS: methylPREDNISolone SUCC 125 MG VIAL 60 MG IVP (06:34)
[2020-05-21 07:30] LABS: HGB 8.8 g/dL (13.5-17.5); RBC 2.75 10^6/uL (4.36-5.78); WBC 15.71 10^3/uL (4.4-10.8)
[2020-05-21 07:31] LABS: Abs Immature Grans 0.11 10^3/uL (0.0-0.06); Absolute Basophil Count 0.02 10^3/uL (0.0-0.2); Absolute Lymphocyte Count 0.68 10^3/uL (1.2-3.4); Absolute Neutrophil Count 14.53 10^3/uL (1.2-6.7); Basophils % 0.1; HCT 27.2 % (40.0-50.0); Immature Grans % 0.7; Lymphocytes % 4.3; MCHC 32.4 % (32.0-36.0); MCV 98.9 fL (80-95); MPV 10.3 fL (8.0-11.0); Monocytes % 2.4; Neutrophils % 92.5; Nucleated RBC 0 %; Platelet Count 246 10^3/uL (130-400); RDW-SD 47.1 fL
[2020-05-21 07:35] LABS: Anion Gap 10.4 mmol/L (3-11); BUN 47 mg/dL (7-18); CO2 21.6 mmol/L (21.0-32.0); CREATININE 2.45 mg/dL (0.70-1.30); Calcium 8.5 mg/dL (8.5-10.1); Chloride 108 mmol/L (98-107); Glucose 238 mg/dL (74-106); Potassium 4.1 mmol/L (3.5-5.1); Sodium 140 mmol/L (136-145)
[2020-05-21 07:39] LABS: Absolute Monocyte Count 0.38 10^3/uL (0.1-0.8)
[2020-05-21] MEDS: Pantoprazole 40 MG VIAL IVP (07:52)
[2020-05-21] MEDS: Normal Saline Flush 10 ML SYR IVP ×3 (07:53→19:24)
[2020-05-21 08:05] LABS: Diff Comment Diff Reviewed
[2020-05-21 08:06] LABS: Poikilocytes 2+
[2020-05-21] MEDS: Insulin Aspart 300 UNITS/3 ML PEN SC ×3 (09:04→20:46)
[2020-05-21] MEDS: Budesonide/Formoterol 160/4.5 6 GM 60 PUFF INH IH ×2 (09:53→20:46)
[2020-05-21] MEDS: levETIRAcetam 750 MG in Normal Saline 100 ML 400 MG IVPB ×2 (10:45→22:12)
--- NOTE | 2020-05-21 13:11 | W.PM.PROGNOT ---
Date of Service Date of service: 05/21/20 Time of Service: 13:11 Assessment and Plan Assessment and plan (1) Dysphagia: Status: Acute Assessment and plan: Likely esophageal phase, suspected to be due to esophageal candidiasis, but awaiting speech therapy consult to see if the patient can be cleared for a barium swallow. Swallowing/clearence of secretions has improved with IV fluconazole and steroids. Trial ice chips. Will also likely require an EGD. Appreciate surgical consult. (2) Esophageal candidiasis: Status: Suspected Assessment and plan: Continue IV fluconazole. Await EGD. (3) Oropharyngeal candidiasis: Status: Acute Assessment and plan: As above (4) Urinary tract infection: Status: Acute Assessment and plan: Present on admission. Urine C&S is growing 2 different GNRs, still speciating, and gram positive miriam. Whitt catheter changed on this admission. Continue imipenem/cilastin while culture is pending - based on prior h/o ESBL E.Coli. (5) Vascular dementia: Status: Chronic Assessment and plan: Mental status preserved. Follow up as outpatient. (6) Paroxysmal atrial fibrillation: Status: Chronic Assessment and plan: Currently NSR. NPO, so we will continue metoprolol IV. PO cardizem is on hold. If the patient goes into RVR, will need transfer to ICU for diltiazem gtt. Continue Telemetry. Hold xarelto in anticipation of EGD. (7) Diabetes type 2, controlled: Status: Chronic Assessment and plan: NPO Continue monitoring fingersticks/SSI. Qualifiers: Diabetes mellitus complication status: with unspecified complications Diabetes mellitus senior care insulin use: with ferry terminal agent use Qualified Code(s): E11.8 - Type 2 diabetes mellitus with unspecified complications; Z79.4 - ad terminal makeup operator (current) use of insulin (8) Seizure disorder: Status: Chronic Assessment and plan: Continue IV keppra (9) CKD (chronic kidney disease): Status: Chronic Assessment and plan: At baseline. Follow up as outpatient. (10) COPD (chronic obstructive pulmonary disease): Status: Chronic Assessment and plan: On presentation, was in acute exacerbation due to an aspiration event/suspected aspiration pneumonia. He is significantly better today. Start to taper steroids. Continue symbicort; convert xopenex to prn. Can continue humidified RA, but given significant improvement in management of oral secretions, would not continue acetylcysteine. (11) DVT prophylaxis: Status: Acute Assessment and plan: Not requiring - the patient's xarelto is still in his system (12) Discharge planning issues: Status: Acute Assessment and plan: DNR/DNI Continues to require hospitalization. Subjective Subjective Interval history since last seen: Mr Panchal feels better today. He states that he has not had any secretions accumulate today and has not had to suction himself. He denies dizziness, chest pain, shortness of breath, nausea, difficulty or pain on swallowing. Awaiting repeat swallow eval. Exam Narrative Exam Narrative: General: Very pleasant elderly male who is napping in a chair, A&Ox3, sounds a little hoarse HEENT: EOMI, MMM Heart: RRR, no m/r/g Lungs: slightly coarse breath sounds B Abdomen: soft, nontender, nondistended Extremities: no edema BLE's Objective Last Vital Signs Temp 36.4 C L 05/21/20 10:50 Pulse 94 H 05/21/20 10:50 Resp 20 05/21/20 10:50 BP 152/72 H 05/21/20 10:50 Pulse Ox 95 05/21/20 10:50 Laboratory Results - last 24 hr 05/19/20 05/21/20 05/21/20 22:40 06:35 06:35 WBC 15.71 H RBC 2.75 L Hgb 8.8 L Hct 27.2 L MCV 98.9 H MCH 32.0 MCHC 32.4 RDW 13.0 Plt Count 246 MPV 10.3 Immature Gran % 0.7 Neutrophils % 92.5 Lymphocytes % 4.3 Monocytes % 2.4 Eosinophils % 0.0 Basophils % 0.1 Nucleated RBC % 0 Absolute Neutrophils 14.53 H Absolute Lymphocytes 0.68 L Absolute Monocytes 0.38 Absolute Eosinophils 0.00 Absolute Basophils 0.02 RBC Morphology See below Poikilocytosis 2+ Sodium 140 Potassium 4.1 Chloride 108 H Carbon Dioxide 21.6 Anion Gap 10.4 BUN 47 H D Creatinine 2.45 H Estimated GFR/1.73 m2 25.90 Glucose 238 H D Calcium 8.5 Magnesium 2.0 SARS-CoV-2 (PCR) Negative Nasopharyn COVID-19 PCR Not Applicable Ref Test Perform Site [facility]
--- NOTE | 2020-05-21 14:38 | CHAPLAIN ---
Doroteo was sitting up in his chair, and had an oxygen mask so it was difficult to talk. I introduced myself, explained my role and offered support. When I asked if I could get Doroteo anything, he asked for water. When I checked with nursing, I found out he is NPO at the moment.
--- NOTE | 2020-05-21 16:56 | SPP_ITS ---
Date of service: 05/21/20 Time of Service: 15:00 Subjective Pt is sitting in his bedside chair watching television upon RETAIL SELLING SPECIALIST arrival. He is able to state his name and answer questions. He also converses well with the RETAIL SELLING SPECIALIST, asking appropriate questions. He is agreeable to work with speech today. Per nursing report, pt much more dry and managing his own secretions today, not requiring suction. Nursing confirms completing oral care at 1:30 today. Pt has not eaten or drank PO since Wednesday. Objective/Assessment/Plan Objective Treatment Techniques &Outcomes: PO trials conducted with RETAIL SELLING SPECIALIST today, including open cup sips of water and teaspoons of puree and pudding solids. Pt able to take single, small cup sips of water independently. Slight labial leakage and cough post swallow noted on first sip only, however, s/s of aspiration were co mpletely eliminated in all subsequent trials. Suspect pt's mouth was very dry and symptoms/poor coordination were a result of no PO intake in well over 24 hours. Pt proceeded to manage no less than 10 sips of thin liquids and consumed full container of applesauce as well as most of a pudding cup without any overt s/s of aspiration or oral residue. Pt able to feed himself, taking controlled bites, with adequate oral manipulation/mastication. Pt managing boluses well, able to hold water in his mouth upon request. Hyolaryngeal elevation/excursion present upon palpation. Patient/Caregiver/Staff Education:: Outcomes of therapy session, including PO trials and recommended diet upgrade with staff supervision communicated to both nursing and attending MD. Safe swallow protocol reviewed as well as importance of continued oral care 4-5x/day and before every meal in the setting of thrush. Assessment Pt participated in today's therapy session, remaining fully alert and communicative throughout. Pt managing his own secretions. He was eager to participate in PO trials with RETAIL SELLING SPECIALIST today. Pt managed thin liquids and puree/pudding solids without difficulty or overt s/s of aspiration. Pt is recommended for diet upgrade to PO, thin liquids via small open cup sips only and puree/pudding solid textures. Pt should be supervised by staff during meals. Pt is recommended to be followed by RETAIL SELLING SPECIALIST for further diet modification/analysis. Plan Short-Term Goals: 1. Pt will manage least restrictive diet, with no overt s/s of aspiration, when utilizing safe swallow protocol. Time Frame: 1 week Long-Term Goals: 1. Pt will maintain adequate nutrition and hydration PO with no s/s of aspiration, when utilizing safe swallow protocol. Time Frame: 2 weeks Pt is recommended to be followed by RETAIL SELLING SPECIALIST for further diet modification/analysis, including diet upgrades as appropriate per outcomes of tx and establishment and training in safe swallow protocol with staff education/training. Recommendations Diet: 4-Pureed/Extremely Thick Liquids: 0-Thin Liquids (via small, single open cup sips only) Strategies/Adaptions: Upright and out of bed in a chair for all meals/snacks, Small sips, Alternate liquids and solids, Ensure complete mastication & swallow before next bite, Check oral cavity frequently, Upright for at least 30 minutes after meal and Oral care at least 2x/day (Oral care recommended 4-5x/day in the presence of thrush. Pt should receive oral care prior to all meals.) Supervision: Direct Supervision via of [facility] staff,self-feeding Additional Notes: Charge Code: 14085-Geszikxsh of Swallowing Dysfunction Total Time Spent: In: 3:00 pm Out: 3:40 pm Total Time: 40 minutes
--- NOTE | 2020-05-21 17:52 | CMPROGNOTE_ITS ---
Care Management Progress Note S/O: Edward continues to be closely monitored; awaiting further work-up, consults. EGD-awaiting S/T clearance for barrium swallow. A: 74 year old male admitted to [facility] 05/19/19 for difficulty swallowing, UTI, aspiration pneumonitis P: Edward will return to [facility] once medically cleared per MD. Awaiting further consults to determine further planning. He will transport via the facility's W/C van.
--- NOTE | 2020-05-21 17:52 | PDOC.CMPRO ---
Care Management Progress Note S/O: Edward continues to be closely monitored; awaiting further work-up, consults. EGD-awaiting S/T clearance for barrium swallow. A: 74 year old male admitted to [facility] 05/19/19 for difficulty swallowing, UTI, aspiration pneumonitis P: Edward will return to [facility] once medically cleared per MD. Awaiting further consults to determine further planning. He will transport via the facility's W/C van.
[2020-05-21] MEDS: methylPREDNISolone SUCC 40 MG VIAL IVP (19:27)
[2020-05-22] VITALS (13 sets, daily range): BP systolic 128–192; BP diastolic 66–89; PULSE 58–100; RESP 17–20; TEMP 35.9–36.7; O2SAT 95–99
[2020-05-22] MEDS: Normal Saline 1,000 ML 125 ML IV ×3 (00:35→15:53)
[2020-05-22] MEDS: Insulin Aspart 300 UNITS/3 ML PEN SC ×5 (02:16→21:21)
[2020-05-22] MEDS: ACETAMINOPHEN 1,000 MG/100 ML BTL 400 MG IVPB ×2 (02:16→10:26)
[2020-05-22 07:13] LABS: Abs Immature Grans 0.08 10^3/uL (0.0-0.06); Absolute Basophil Count 0.01 10^3/uL (0.0-0.2); Absolute Lymphocyte Count 0.73 10^3/uL (1.2-3.4); Basophils % 0.1; HGB 8.5 g/dL (13.5-17.5); Immature Grans % 0.6; Lymphocytes % 5.1; MCH 31.8 pg (27.0-33.0); MCHC 32.7 % (32.0-36.0); MCV 97.4 fL (80-95); MPV 10.1 fL (8.0-11.0); Monocytes % 2.5; Neutrophils % 91.7; Nucleated RBC 0 %; Platelet Count 238 10^3/uL (130-400); RBC 2.67 10^6/uL (4.36-5.78); RDW 12.9 % (11.8-14.1); RDW-SD 45.8 fL; WBC 14.26 10^3/uL (4.4-10.8)
[2020-05-22 07:17] LABS: Absolute Monocyte Count 0.36 10^3/uL (0.1-0.8); Absolute Neutrophil Count 13.08 10^3/uL (1.2-6.7)
[2020-05-22 07:26] LABS: BUN 48 mg/dL (7-18); C-Reactive Protein 6.17 mg/dL (0.0-0.3); CREATININE 1.95 mg/dL (0.70-1.30); Calcium 8.6 mg/dL (8.5-10.1); Chloride 110 mmol/L (98-107); Estimated GFR 33.71 (mL/min/1.73m2); Glucose 213 mg/dL (74-106); Potassium 3.6 mmol/L (3.5-5.1); Sodium 142 mmol/L (136-145)
[2020-05-22] MEDS: Budesonide/Formoterol 160/4.5 6 GM 60 PUFF INH IH ×2 (08:00→20:33)
--- NOTE | 2020-05-22 08:00 | DI.RAD_ITS ---
EXAM: RF BARIUM SWALLOW CLINICAL HISTORY: dysphagia, thickened esophagus TECHNIQUE: 2D and realtime digital imaging was performed. CONTRAST MATERIAL: Thick and thin barium and barium tablet were administered. COMPARISON: CT CT CHEST/ABD/PEL WO from 05/19/2020 FINDINGS: The PA and lateral carpenter repairer views of the chest show normal heart size. Mild changes of pulmonary scarri ng are seen. There is no focal infiltrate, effusion or pulmonary edema. Degenerative changes are se en in the spine. The lateral carpenter repairer view of the neck shows degenerative changes in the spine. The exam is quite limited due to patient immobility. Patient had difficulty drinking the barium. A limited quantity of barium was ingested. No aspiration was observed during the exam. There is no ev idence of mucosal irregularity, focal ulcer, stricture or perforation. The stomach and duodenum are grossly normal. IMPRESSION: Limited exam. No gross evidence of an acute abnormality.
[2020-05-22] MEDS: Pantoprazole 40 MG VIAL IVP (08:08)
[2020-05-22] MEDS: methylPREDNISolone SUCC 40 MG VIAL IVP (08:09)
[2020-05-22] MEDS: Normal Saline Flush 10 ML SYR IVP ×3 (08:09→20:33)
[2020-05-22] MEDS: Barium Sulfate 60% W/V 355 ML BTL PO (09:38)
[2020-05-22] MEDS: levETIRAcetam 750 MG in Normal Saline 100 ML 400 MG IVPB (10:26)
[2020-05-22] MEDS: Metoprolol 5 MG/5 ML VIAL 2.5 MG IVP (15:43)
--- NOTE | 2020-05-22 16:20 | W.PM.PROGNOT ---
Date of Service Date of service: 05/22/20 Time of Service: 16:20 Assessment and Plan Assessment and plan (1) Dysphagia: Status: Acute Assessment and plan: Likely esophageal phase, suspected to be due to esophageal candidiasis. Barium swallow negative. Will speak with general surgery re EGD. Clinically this has much improved if not resolved. Speech therapy to re-evaluate. Continiue modiefied diet. Continue IV fluconazole and taper steroids. (2) Esophageal candidiasis: Status: Suspected Assessment and plan: Continue IV fluconazole. Await EGD (if still happening). (3) Oropharyngeal candidiasis: Status: Acute Assessment and plan: As above (4) Urinary tract infection: Status: Acute Assessment and plan: Present on admission. Urine C&S is growing ESBL E. Coli as well as another GNR, and gram positive miriam. Whitt catheter changed on this admission. Continue imipenem/cilastin. (5) Vascular dementia: Status: Chronic Assessment and plan: Mental status preserved. Follow up as outpatient. (6) Paroxysmal atrial fibrillation: Status: Chronic Assessment and plan: Currently NSR. Resume PO cardizem and metoprolol. Continue Telemetry. Hold xarelto in anticipation of EGD. (7) Diabetes type 2, controlled: Status: Chronic Assessment and plan: Carb consistent diet Continue monitoring fingersticks/SSI. Qualifiers: Diabetes mellitus senior care insulin use: with senior care use Diabetes mellitus complication status: with unspecified complications Qualified Code(s): E11.8 - Type 2 diabetes mellitus with unspecified complications; Z79.4 - penitentiary (current) use of insulin (8) Seizure disorder: Status: Chronic Assessment and plan: Continue IV keppra (9) CKD (chronic kidney disease): Status: Chronic Assessment and plan: At baseline. Follow up as outpatient. (10) COPD (chronic obstructive pulmonary disease): Status: Chronic Assessment and plan: On presentation, was in acute exacerbation due to an aspiration event/suspected aspiration pneumonia. He has improved. Switch to PO steroids. Continue symbicort; xopenex prn. (11) DVT prophylaxis: Status: Acute Assessment and plan: Not requiring - the patient's xarelto is still in his system (12) Discharge planning issues: Status: Acute Assessment and plan: DNR/DNI Continues to require hospitalization. Subjective Subjective Interval history since last seen: Mr Panchal states he is feeling like his throat is dry, but otherwise is doing well. He is talkative this afternoon. He denies dizziness, chest pain, shortness of breath, nausea, pain on swallowing. He had a normal barium swallow today and passed a swallow eval yesterday for a pureed diet with thin liquids. Exam Narrative Exam Narrative: General: Very pleasant elderly male who is sitting up in a chair, A&Ox3, talkative, speaking in a louder voice than yesterday, looks much better HEENT: EOMI, MMM Heart: RRR, no m/r/g Lungs: CTAB Abdomen: soft, nontender, nondistended Extremities: trace edema BLE's Objective Last Vital Signs Temp 36.2 C L 05/22/20 16:01 Pulse 75 05/22/20 16:01 Resp 20 05/22/20 16:01 BP 150/66 H 05/22/20 16:10 Pulse Ox 97 05/22/20 16:01 Laboratory Results - last 24 hr 05/19/20 05/22/20 05/22/20 22:50 06:45 06:45 WBC 14.26 H RBC 2.67 L Hgb 8.5 L Hct 26.0 L MCV 97.4 H MCH 31.8 MCHC 32.7 RDW 12.9 Plt Count 238 MPV 10.1 Immature Gran % 0.6 Neutrophils % 91.7 Lymphocytes % 5.1 Monocytes % 2.5 Eosinophils % 0.0 Basophils % 0.1 Nucleated RBC % 0 Absolute Neutrophils 13.08 H Absolute Lymphocytes 0.73 L Absolute Monocytes 0.36 Absolute Eosinophils 0.00 Absolute Basophils 0.01 Sodium 142 Potassium 3.6 Chloride 110 H Carbon Dioxide 22.0 Anion Gap 10.0 BUN 48 H Creatinine 1.95 H Estimated GFR/1.73 m2 33.71 Glucose 213 H Calcium 8.6 Magnesium 2.0 C-Reactive Protein 6.17 H Urine Color Yellow Urine Clarity Clear Urine pH 6.5 Ur Specific [place] 1.020 Urine Protein >=300 H Urine Ketones Negative Urine Blood Moderate H Urine Nitrite Positive H Urine Bilirubin Negative Urine Urobilinogen 0.2 Ur Leukocyte Esterase Small H Urine RBC 20-50 H Urine WBC >50 H Ur Epithelial Cells Few Urine Crystals Moderate amorphous Urine Bacteria Negative Urine Casts Negative Urine Mucus Trace Urine Other Negative Ur Culture Indicated? Yes Urine Glucose Negative Objective Narrative Objective Narrative: Barium swallow: Limited exam. No gross evidence of an acute abnormality.
[2020-05-22] MEDS: dilTIAZem 60 MG TAB PO (16:29)
--- NOTE | 2020-05-22 16:59 | CMPROGNOTE_ITS ---
- If Service Date Differs Date of service: 05/22/20 Time of Service: 16:59 Care Management Progress Note S/O: Ed was sitting up in his chair when CM met with him. He reported that he is doing well, and that he has had a pleasant experience at [facility]. He reminisced about 'old times' in [facility], talking about all the shops that used to be in town that are no longer. Per report, he had a Barium Swallow study today which was negative, so general surgery will be consulted for EGD. REECE received a phone call today from Guadalupe at [facility], who expressed concern regarding a large bill that is accruing for him at their facility. She asked if CM would be able to discuss rn long term care REINALDO with him, as he has been resistant to filling it out at [facility]. CM stated that we would offer him an application, but that our discharge plan remains to send him back to their facility, as he is a resident of [facility]. CM will continue to follow. A: 74 year old male admitted to [facility] 05/19/19 for difficulty swallowing, UTI, aspiration pneumonitis P: Edward will return to [facility] once medically cleared per MD. Awaiting further consults to determine further planning. He will transport via the facility's W/C van.
--- NOTE | 2020-05-22 16:59 | PDOC.CMPRO ---
- If Service Date Differs Date of service: 05/22/20 Time of Service: 16:59 Care Management Progress Note S/O: Ed was sitting up in his chair when CM met with him. He reported that he is doing well, and that he has had a pleasant experience at [facility]. He reminisced about 'old times' in [facility], talking about all the shops that used to be in town that are no longer. Per report, he had a Barium Swallow study today which was negative, so general surgery will be consulted for EGD. REECE received a phone call today from Guadalupe at [facility], who expressed concern regarding a large bill that is accruing for him at their facility. She asked if CM would be able to discuss local company intermodal truck driver REINALDO with him, as he has been resistant to filling it out at [facility]. CM stated that we would offer him an application, but that our discharge plan remains to send him back to their facility, as he is a resident of [facility]. CM will continue to follow. A: 74 year old male admitted to [facility] 05/19/19 for difficulty swallowing, UTI, aspiration pneumonitis P: Edward will return to [facility] once medically cleared per MD. Awaiting further consults to determine further planning. He will transport via the facility's W/C van.
[2020-05-22] MEDS: Oxybutynin 5 MG TAB PO (20:48)
[2020-05-22] MEDS: levETIRAcetam 500 MG TAB 750 MG PO (20:48)
[2020-05-22] MEDS: Atorvastatin 40 MG TAB 80 MG PO (21:21)
[2020-05-23] VITALS (7 sets, daily range): BP systolic 148–188; BP diastolic 68–77; PULSE 56–79; RESP 16–20; TEMP 36.4–37; O2SAT 96–98
[2020-05-23] MEDS: Normal Saline 1,000 ML 75 ML IV ×3 (05:29→22:58)
[2020-05-23 07:07] LABS: Abs Immature Grans 0.05 10^3/uL (0.0-0.06); Absolute Lymphocyte Count 1.61 10^3/uL (1.2-3.4); Absolute Monocyte Count 0.67 10^3/uL (0.1-0.8); Absolute Neutrophil Count 8.35 10^3/uL (1.2-6.7); HCT 25.9 % (40.0-50.0); HGB 8.7 g/dL (13.5-17.5); Immature Grans % 0.5; Lymphocytes % 15.1; MCH 32.1 pg (27.0-33.0); MCHC 33.6 % (32.0-36.0); MCV 95.6 fL (80-95); MPV 10.2 fL (8.0-11.0); Monocytes % 6.3; Neutrophils % 78.1; Nucleated RBC 0 %; Platelet Count 249 10^3/uL (130-400); RBC 2.71 10^6/uL (4.36-5.78); RDW 12.8 % (11.8-14.1); RDW-SD 44.4 fL; WBC 10.68 10^3/uL (4.4-10.8)
[2020-05-23 07:20] LABS: Anion Gap 7.6 mmol/L (3-11); BUN 44 mg/dL (7-18); CO2 23.4 mmol/L (21.0-32.0); CREATININE 1.91 mg/dL (0.70-1.30); Calcium 7.9 mg/dL (8.5-10.1); Chloride 109 mmol/L (98-107); Estimated GFR 34.52 (mL/min/1.73m2); Glucose 242 mg/dL (74-106); Magnesium 1.8 mg/dL (1.8-2.4); Potassium 3.6 mmol/L (3.5-5.1); Sodium 140 mmol/L (136-145)
[2020-05-23] MEDS: Insulin Aspart 300 UNITS/3 ML PEN SC ×4 (08:11→21:44)
[2020-05-23] MEDS: Budesonide/Formoterol 160/4.5 6 GM 60 PUFF INH IH ×2 (08:33→20:04)
--- NOTE | 2020-05-23 09:28 | NUR.NOTE ---
Charge Nurse consulted with , pt is to have pills with sip of water
[2020-05-23] MEDS: Metoprolol 25 MG TAB 12.5 MG PO (09:33)
[2020-05-23] MEDS: dilTIAZem CD 120 MG CAPCR 240 MG PO (09:33)
[2020-05-23] MEDS: Sertraline 50 MG TAB 100 MG PO (09:33)
[2020-05-23] MEDS: Pantoprazole 40 MG TABCR PO (09:34)
[2020-05-23] MEDS: Tamsulosin 0.4 MG CAPCR 0.8 MG PO (09:34)
[2020-05-23] MEDS: Oxybutynin 5 MG TAB PO ×2 (09:35→20:05)
[2020-05-23] MEDS: levETIRAcetam 500 MG TAB 750 MG PO ×2 (09:35→20:05)
[2020-05-23] MEDS: predniSONE 20 MG TAB 40 MG PO (09:35)
[2020-05-23] MEDS: Finasteride 5 MG TAB PO (09:36)
[2020-05-23] MEDS: Ondansetron 4 MG/2 ML VIAL IVP (10:13)
--- NOTE | 2020-05-23 11:25 | CMPROGNOTE_ITS ---
Care Management Progress Note S/O: Ed continues to be monitored, general surgery consulted for EGD. CM received email with documents to be delivered to Ed from [facility] regarding current balance. These will be delivered when CM is available in person-Daniela notified via email. No change to overall plan, CM will continue to follow. A: 74 year old male admitted to [facility] 05/19/19 for difficulty swallowing, UTI, aspiration pneumonitis P: Edward will return to [facility] once medically cleared per MD. He will transport via the facility's W/C van.
--- NOTE | 2020-05-23 11:25 | PDOC.CMPRO ---
Care Management Progress Note S/O: Ed continues to be monitored, general surgery consulted for EGD. CM received email with documents to be delivered to Ed from [facility] regarding current balance. These will be delivered when CM is available in person-Daniela notified via email. No change to overall plan, CM will continue to follow. A: 74 year old male admitted to [facility] 05/19/19 for difficulty swallowing, UTI, aspiration pneumonitis P: Edward will return to [facility] once medically cleared per MD. He will transport via the facility's W/C van.
--- NOTE | 2020-05-23 11:58 | DM INPTCON_ITS ---
Date of service: 05/23/20 Time of Service: 12:00 Diabetes Inpatient Consult DESCRIPTION/ASSESSMENT: 74 year old resident of SNF, admitted with esophageal candidiasis and dysphagia with hx of CKD, COPD, DM2 and dementia. BMI wnl for age, insignificant weight loss in last 90 days (-11 lbs). Per DIRECTOR PROFESSIONAL SERVICES consult, dysphagia may resolve when thrush treated and resolved. Following puree diet with extra thick liquids, thins in sippy cup only. PO intake adequate to meet nutrient and fluid needs at this time. NPO today for EGD. Most recent A1c: 6.3% indicating well controlled DM2. INTERVENTION: did not provide diabetes education as not warranted at this time PLAN: diet texture per DIRECTOR PROFESSIONAL SERVICES, will continue to follow po intake, labs, weight will continue to follow Time Spent in Nutritional Counseling and Treatment: 0
--- NOTE | 2020-05-23 15:09 | W.PM.PROGNOT ---
Date of Service Date of service: 05/23/20 Time of Service: 15:09 Assessment and Plan Assessment and plan (1) Dysphagia: Status: Acute Assessment and plan: Likely esophageal phase, suspected to be due to esophageal candidiasis. Barium swallow negative. EGD planned for this afternoon. Clinically this has much improved if not resolved. Continiue modiefied diet. Continue IV fluconazole and taper steroids. (2) Esophageal candidiasis: Status: Suspected Assessment and plan: Continue IV fluconazole. Await EGD. (3) Oropharyngeal candidiasis: Status: Acute Assessment and plan: As above (4) Urinary tract infection: Status: Acute Assessment and plan: Present on admission. Urine C&S is growing ESBL E. Coli as well as another GNR, and gram positive miriam. Whitt catheter changed on this admission. Continue imipenem/cilastin. (5) Vascular dementia: Status: Chronic Assessment and plan: Mental status preserved. Follow up as outpatient. (6) Paroxysmal atrial fibrillation: Status: Chronic Assessment and plan: Currently NSR. Continue PO cardizem and metoprolol. Continue Telemetry. Hold xarelto in anticipation of EGD. (7) Diabetes type 2, controlled: Status: Chronic Assessment and plan: Carb consistent diet Continue monitoring fingersticks/SSI. 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 Follow up as outpatient. (10) COPD (chronic obstructive pulmonary disease): Status: Chronic Assessment and plan: On presentation, was in acute exacerbation due to an aspiration event/suspected aspiration pneumonia. He has improved. Taper PO steroids. Continue symbicort; xopenex prn. (11) DVT prophylaxis: Status: Acute Assessment and plan: Not requiring - the patient's xarelto is still in his system (12) Discharge planning issues: Status: Acute Assessment and plan: DNR/DNI Continues to require hospitalization. Subjective Subjective Interval history since last seen: Mr Panchal feels better. Denies difficulty or pain on swallowing. Denies dizziness, chest pain, shortness of breath. States he vomited this morning and that it is not unusual for him to feel sick to his stomach in the morning. He is expected to undergo an EGD shortly. Exam Narrative Exam Narrative: General: Very pleasant elderly male who is sitting up in a chair, A&Ox3, looks and speaks even better today than yesterday HEENT: EOMI, MMM Heart: RRR, no m/r/g Lungs: CTAB Abdomen: soft, nontender, nondistended Extremities: trace edema BLE's Objective Last Vital Signs Temp 36.9 C 05/23/20 11:33 Pulse 75 05/23/20 11:33 Resp 18 05/23/20 11:33 BP 165/77 H 05/23/20 11:33 Pulse Ox 97 05/23/20 11:33 Laboratory Results - last 24 hr 05/19/20 05/23/20 05/23/20 22:50 06:35 06:35 WBC 10.68 RBC 2.71 L Hgb 8.7 L Hct 25.9 L MCV 95.6 H MCH 32.1 MCHC 33.6 RDW 12.8 Plt Count 249 MPV 10.2 Immature Gran % 0.5 Neutrophils % 78.1 Lymphocytes % 15.1 Monocytes % 6.3 Eosinophils % 0.0 Basophils % 0.0 Nucleated RBC % 0 Absolute Neutrophils 8.35 H Absolute Lymphocytes 1.61 Absolute Monocytes 0.67 Absolute Eosinophils 0.00 Absolute Basophils 0.00 Sodium 140 Potassium 3.6 Chloride 109 H Carbon Dioxide 23.4 Anion Gap 7.6 BUN 44 H Creatinine 1.91 H Estimated GFR/1.73 m2 34.52 Glucose 242 H Calcium 7.9 L Magnesium 1.8 Urine Color Yellow Urine Clarity Clear Urine pH 6.5 Ur Specific [place] 1.020 Urine Protein >=300 H Urine Ketones Negative Urine Blood Moderate H Urine Nitrite Positive H Urine Bilirubin Negative Urine Urobilinogen 0.2 Ur Leukocyte Esterase Small H Urine RBC 20-50 H Urine WBC >50 H Ur Epithelial Cells Few Urine Crystals Moderate amorphous Urine Bacteria Negative Urine Casts Negative Urine Mucus Trace Urine Other Negative Ur Culture Indicated? Yes Urine Glucose Negative
--- NOTE | 2020-05-23 15:41 | PHA.REVIEW ---
Pharmacy Admission Review - Admission Clinical Review (Last Updated 05/20/20 @ 06:21 by Reggie Campos MD) Discharge planning issues (Acute) DVT prophylaxis (Acute) Oropharyngeal candidiasis (Acute) Dysphagia (Acute) Thrush (Acute) Difficulty in swallowing (Acute) Vomiting (Acute) Urinary tract infection (Acute) No Known Allergies Allergy (Unverified 05/19/20 21:55) Height 5 ft 10 in Weight 87.1 kg DIFFICULTY SWALLOWING, UTI, ASP.PNEUMONIA, Veronica Esophagitis - Comments Comments/Follow Ups: Follow SCr and dosing of Primaxin/Diflucan, has resumed oral meds since Barium swallow, on oral steroids that will be tapered, Novolog scale. Planning for EGD today so diet NPO, Xarelto held for procedure...watch for restart - Renal Dosing Renal Dosing: BUN 44 mg/dL (7-18) H 05/23/20 06:35 Creatinine 1.91 mg/dL (0.70-1.30) H 05/23/20 06:35 CrCl~34ml/min (Improved) Medications needing adjustments: Reviewed (Primaxin renally adjusted, Fluconazole renally adjusted) - Anticoagulation Anticoagulation: Hgb 8.7 g/dL (13.5-17.5) L 05/23/20 06:35 Hct 25.9 % (40.0-50.0) L 05/23/20 06:35 Plt Count 249 10^3/uL (130-400) 05/23/20 06:35 INR 1.1 (0.9-1.1) 05/19/20 22:05 Creatinine 1.91 mg/dL (0.70-1.30) H 05/23/20 06:35 Medications: Rivaroxaban Therapeutic Anticoagulation: Reviewed Medications: Rivaroxaban (Not ordered due to planned EGD-watch for restart) - Opiate Usage Evaluate Pain Scale/Pains Meds: Reviewed (MS IVP (not using), Tramadol (not using)) Scheduled Bowel Reg ordered if on Opiates?: No (prn Miralax) - Relevant Labs Sodium 140 mmol/L (136-145) 05/23/20 06:35 Potassium 3.6 mmol/L (3.5-5.1) 05/23/20 06:35 Chloride 109 mmol/L (98-107) H 05/23/20 06:35 Magnesium 1.8 mg/dL (1.8-2.4) 05/23/20 06:35 C-Reactive Protein 6.17 mg/dL (0.0-0.3) H 05/22/20 06:45 - DM Control DM Control: Glucose 242 mg/dL (74-106) H 05/23/20 06:35 Hemoglobin A1c 6.3 % (<5.7) H 05/20/20 06:10 Finger Stick Blood Glucose 232 Finger Stick Blood Glucose 232 Finger Stick Blood Glucose 296 Finger Stick Blood Glucose 296 Insulin Dosing: Reviewed (Novolog scale -patient on steroids) - Heart Failure/WA EF%, SMITH's, B-Blockers, Diuretics: Reviewed (Cardizem, Metoprolol po and IV) - BP Control BP Control: Blood Pressure 165/77 Blood Pressure 188/68 If elevated: Reviewed (Anticipate some med adjustments, noticed Metoprolol Tartrate ordered, but patient takes Succinate. Will let MD know, BP meds were held for a few days due to difficulty swallowing) - Comments Comments/Follow Ups: Could not reach about Metoprolol oversight...made the change anways and corrected home med. Did not do a 100% thorough profile check prior to shift ending Antibiotic Activity - Pharmacy Antibiotic Review Pharmacy Antibiotic Activity: Reviewed, no change (Primaxin day#4, E.Coli in urine)
--- NOTE | 2020-05-23 16:32 | W.PM.PROGNOT ---
Date of Service Date of service: 05/23/20 Time of Service: 16:35 Assessment and Plan Assessment and plan (1) Esophageal candidiasis: Status: Suspected (2) Oropharyngeal candidiasis: Status: Acute (3) Dysphagia: Status: Acute Assessment and plan: MBSS- nl thrush on exam today EGD Subjective Subjective Interval history since last seen: Dysphagia: Status: Acute Assessment and plan: Likely esophageal phase, suspected to be due to esophageal candidiasis. Barium swallow negative. EGD planned for this afternoon. Clinically this has much improved if not resolved. Continiue modiefied diet. Continue IV fluconazole and taper steroids. (2) Esophageal candidiasis: Status: Suspected Assessment and plan: Continue IV fluconazole. EGD: Informed consent is obtained for the procedural (explained in simple layman's terms that the pt and/or family could understand) explaining risks vs benefits and alternatives to the procedure and consequences if we do not do the procedure and need/rational for the procedure. Risks include but are not limited to: bleeding, infection, perforation of esophagus, stomach, colon, small intestines, bronchus or trachea, or PTX. This would necessitate emergency surgery to repair the damage w/ possible ostomy; and other associated complications w/ the required surgery. Also complications of anesthesia including aspiration, UT/CVA/. CT: IMPRESSION: 1. Mild splenomegaly. 2. Mild infiltrate in the left lower lobe. No pleural effusions no obvious intrathoracic adenopathy. 3. Tiny nonobstructive 1 millimeter calculus in the right kidney. 4. Thick-walled urinary bladder collapsed around a Whitt catheter. Possible wall neoplasm anterior left side of urinary bladder. 5. There are nonacute appearing fractures of the right 9th, 10th, and 11th ribs. No lytic osseous lesions identified. 6. Penile implant device incidentally noted. RADIATION DOSE DELIVERED: 1,170.16mGy.cm Total DLP DATA REPOSITORY: All CT scans at this facility are submitted to the National Radiology Data Registry (NRDR) Dose Index Registry (DIR) with the [employer] (A[employer]). RADIATION OPTIMIZATION: All CT scans at this facility use at least one of these dose optimization techniques: automated exposure control; mA and/or kV adjustment per patient size (includes targeted exams where dose is matched to clinical indication); or iterative reconstruction. [id number]: Total DLP = 0.00 mGy-cm Ordered By: Timbo Taylor M.D. CC: Dictated By: Marino Barney M.D. 05/20/20 0821 1. The uvula is prominent in size. Direct visualization recommended. ENT consult recommended. 2. No other significant soft tissue findings on this noninfused study. 3. Please note that this is not a CTA study RADIATION DOSE DELIVERED: 517.42mGy.cm Total DLP DATA REPOSITORY: All CT scans at this facility are submitted to the National Radiology Data Registry (NRDR) Dose Index Registry (DIR) with the [employer] (ACR). RADIATION OPTIMIZATION: All CT scans at this facility use at least one of these dose optimization techniques: automated exposure control; mA and/or kV adjustment per patient size (includes targeted exams where dose is matched to clinical indication); or iterative reconstruction. [id number]: Total DLP = 0.00 mGy-cm Ordered By: Timbo Taylor M.D. CC: Dictated By: Marino Barney M.D. 05/20/20 0808 RESSION: No acute intracranial findings on this noninfused CT scan of the brain. Chronic ischemic changes again noted. If clinically indicated follow-up MRI with diffusion imaging can be performed to determine if there is an acute ischemic event. RADIATION DOSE DELIVERED: 894.77mGy.cm Total DLP DATA REPOSITORY: All CT scans at this facility are submitted to the National Radiology Data Registry (NRDR) Dose Index Registry (DIR) with the [employer] (A[employer]). RADIATION OPTIMIZATION: All CT scans at this facility use at least one of these dose optimization techniques: automated exposure control; mA and/or kV adjustment per patient size (includes targeted exams where dose is matched to clinical indication); or iterative reconstruction. [id number]: Total DLP = 0.00 mGy-cm Ordered By: Timbo Taylor M.D. CC: Dictated By: Marino Barney M.D. 05/20/20799 <Electronically signed by Marino Barney M.D. in OV> 05/20/20799 Transcribed By: Marino Barney MD The PA and lateral photographic intelligence officer views of the chest show normal heart size. Mild changes of pulmonary scarring are seen. There is no focal infiltrate, effusion or pulmonary edema. Degenerative changes are seen in the spine. The lateral photographic intelligence officer view of the neck shows degenerative changes in the spine. The exam is quite limited due to patient immobility. Patient had difficulty drinking the barium. A limited quantity of barium was ingested. No aspiration was observed during the exam. There is no evidence of mucosal irregularity, focal ulcer, stricture or perforation. The stomach and duodenum are grossly normal. IMPRESSION: Limited exam. No gross evidence of an acute abnormality. current medications nd labd reviewed. Exam Resp Effort & Inspection: normal respiratory effort and able to speak in complete sentences Auscultation: clear to auscultation bilaterally Cardio Rate: regular rate Rhythm: regular rhythm GI Palpation: soft, no hernias and No ascites Percussion: normal to percussion Objective Last Vital Signs Temp 37 C 05/23/20 15:51 Pulse 56 L 05/23/20 15:51 Resp 16 05/23/20 15:51 BP 174/71 H 05/23/20 15:51 Pulse Ox 98 05/23/20 15:51 Laboratory Results - last 24 hr 05/19/20 05/23/20 05/23/20 22:50 06:35 06:35 WBC 10.68 RBC 2.71 L Hgb 8.7 L Hct 25.9 L MCV 95.6 H MCH 32.1 MCHC 33.6 RDW 12.8 Plt Count 249 MPV 10.2 Immature Gran % 0.5 Neutrophils % 78.1 Lymphocytes % 15.1 Monocytes % 6.3 Eosinophils % 0.0 Basophils % 0.0 Nucleated RBC % 0 Absolute Neutrophils 8.35 H Absolute Lymphocytes 1.61 Absolute Monocytes 0.67 Absolute Eosinophils 0.00 Absolute Basophils 0.00 Sodium 140 Potassium 3.6 Chloride 109 H Carbon Dioxide 23.4 Anion Gap 7.6 BUN 44 H Creatinine 1.91 H Estimated GFR/1.73 m2 34.52 Glucose 242 H Calcium 7.9 L Magnesium 1.8 Urine Color Yellow Urine Clarity Clear Urine pH 6.5 Ur Specific [place] 1.020 Urine Protein >=300 H Urine Ketones Negative Urine Blood Moderate H Urine Nitrite Positive H Urine Bilirubin Negative Urine Urobilinogen 0.2 Ur Leukocyte Esterase Small H Urine RBC 20-50 H Urine WBC >50 H Ur Epithelial Cells Few Urine Crystals Moderate amorphous Urine Bacteria Negative Urine Casts Negative Urine Mucus Trace Urine Other Negative Ur Culture Indicated? Yes Urine Glucose Negative
--- NOTE | 2020-05-23 16:50 | STOM_PTH ---
PATIENT: Doroteo Panchal LOC: [place] Garcia#:[id number] AGE/SX: 74/M ROOM: 215 RE05/20/[address]: Reggie Campos MD : [id number] BED: A DIS: 05/27/2020 SPEC #: [id number] RECD: 05/24/20 12:16 STATUS: RENE REAlexis #: [id number] ROMIE: 05/23/20 16:[address]: Reggie Campos DEPT: Surgical Specimen RECD BY: Dulce Freedman ENTERED: 05/24/20 12:19 SP TYPE: STOMACH OTHR DR: MD Izzy Trent John Tissues: 1 - BIOPSY BOWEL 2 - STOMACH BIOPSY 3 - STOMACH BIOPSY 4 - ESOPHAGUS BIOPSY 5 - ESOPHAGUS BIOPSY 6 - BIOPSY BOWEL Procedures: GROSS AND MICRO LEVEL 4 Comments: [id number]
--- NOTE | 2020-05-23 17:09 | ENDO_ITS ---
Date of service: 05/23/20 Time of Service: 17:09 Endoscopy Report DATE OF PROCEDURE: 05/23/20 PRE-OP DIAGNOSIS: dysphagia POST-OP DIAGNOSIS: other (moderate gastritis . no thrush. ) PROCEDURE: EGD w/ bx SURGEON: Elif Ward ANESTHESIA: MAC ESTIMATED BLOOD LOSS: 0 PATHOLOGY: other COMPLICATIONS: None DISPOSITION: floor PROCEDURE DESCRIPTION: After informed consent was obtained the patient was take to the procedure room and placed in a supine position. Monitors were applied and a time out was done. The patients name, date of , procedure type, allergies to medications and metal in their body was reviewed. A bite block was placed and the patient was sedated. Once sedated and comfortable the gastroscope was advanced through the oropharynx which was grossly normal into the esophagus. No signs of thrush. The proximal and mid-esophagus were nl.. No signs of thrush. In the distal esophagus there wasnl noted. The scope was advanced into the stomach and through the pylorus into the 3rd portion of the duodenum. The duodenum was noted to be nl. Biopsies were done. all specimen retrieved and no bleeding noted. The scope was retracted back into the stomach and biopsies were done to rule out H. pylori. Moderate gastritis noted throughout the entire stomach in a striped fashion. No ulcers. No active or old bleeding. There were no ulcers. The scope was retroflexed. The cardia and fundus were noted to be normal. There no a hiatal hernia noted. The scope was retracted back into the esophagus and biopsies were done of the GE junction to rule out Oswald's. The Z line was regular. The scope was removed and the patient was woken up and taken back to [facility] in stable condition.
[2020-05-23] MEDS: Pantoprazole 40 MG VIAL IVP (19:15)
[2020-05-23] MEDS: Sucralfate 1 GM TAB PO (21:40)
[2020-05-23] MEDS: Atorvastatin 40 MG TAB 80 MG PO (21:41)
[2020-05-24] VITALS (10 sets, daily range): BP systolic 89–169; BP diastolic 55–71; PULSE 56–74; RESP 17–20; TEMP 34.6–37.4; O2SAT 94–99
[2020-05-24 07:19] LABS: Abs Immature Grans 0.06 10^3/uL (0.0-0.06); Absolute Basophil Count 0.01 10^3/uL (0.0-0.2); Absolute Lymphocyte Count 1.43 10^3/uL (1.2-3.4); Absolute Neutrophil Count 5.25 10^3/uL (1.2-6.7); Basophils % 0.1; HCT 24.9 % (40.0-50.0); HGB 8.4 g/dL (13.5-17.5); Immature Grans % 0.8; Lymphocytes % 19.5; MCH 31.9 pg (27.0-33.0); MCHC 33.7 % (32.0-36.0); MCV 94.7 fL (80-95); MPV 10.1 fL (8.0-11.0); Monocytes % 8.2; Neutrophils % 71.4; Nucleated RBC 0 %; Platelet Count 234 10^3/uL (130-400); RBC 2.63 10^6/uL (4.36-5.78); RDW 12.4 % (11.8-14.1); WBC 7.35 10^3/uL (4.4-10.8)
[2020-05-24 07:39] LABS: Anion Gap 6.9 mmol/L (3-11); BUN 42 mg/dL (7-18); CO2 24.1 mmol/L (21.0-32.0); CREATININE 1.8 mg/dL (0.70-1.30); Chloride 109 mmol/L (98-107); Estimated GFR 36.97 (mL/min/1.73m2); Glucose 265 mg/dL (74-106); Magnesium 1.9 mg/dL (1.8-2.4); Sodium 140 mmol/L (136-145)
[2020-05-24] MEDS: Budesonide/Formoterol 160/4.5 6 GM 60 PUFF INH IH ×2 (08:02→20:50)
[2020-05-24] MEDS: IMIPENEM/CILASTATIN 500 MG in Normal Saline 100 ML 200 MG IVPB ×3 (09:04→20:56)
[2020-05-24] MEDS: Insulin Aspart 300 UNITS/3 ML PEN SC ×4 (09:04→22:46)
[2020-05-24] MEDS: Tamsulosin 0.4 MG CAPCR 0.8 MG PO (09:05)
[2020-05-24] MEDS: predniSONE 20 MG TAB 40 MG PO (09:05)
[2020-05-24] MEDS: Sertraline 50 MG TAB 100 MG PO (09:06)
[2020-05-24] MEDS: Sucralfate 1 GM TAB PO ×4 (09:06→21:03)
[2020-05-24] MEDS: Metoprolol CR 25 MG TABCR 12.5 MG PO (09:06)
[2020-05-24] MEDS: dilTIAZem CD 120 MG CAPCR 240 MG PO (09:06)
[2020-05-24] MEDS: Oxybutynin 5 MG TAB PO ×2 (09:06→20:50)
[2020-05-24] MEDS: Finasteride 5 MG TAB PO (09:06)
[2020-05-24] MEDS: levETIRAcetam 500 MG TAB 750 MG PO ×2 (10:53→20:50)
[2020-05-24] MEDS: Normal Saline 1,000 ML 75 ML IV (14:35)
--- NOTE | 2020-05-24 17:04 | PGE_ITS ---
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 Resume anticoagulation. I have ordered an MRI and MRA of the brain and neck for Wednesday Barium swallow negative. EGD without esophageal issues, though did show gastritis. Continiue modiefied diet. Can d/c fluconazole and steroids. (2) Weakness on left side of face: Status: Acute Assessment and plan: ?acute or chronic. No clear answer on this (read above). Obtain MRI/MRA brain to r/o CVA. Resume anticoagulation. (3) Esophageal candidiasis: Status: Suspected Assessment and plan: It is possible this has resolved by the time of EGD. But no evidence thereof on EGD. D/c fluconazole/steroids. (4) Oropharyngeal candidiasis: Status: Resolved Assessment and plan: As above (5) Urinary tract infection: Status: Acute Assessment and plan: Present on admission. Urine C&S is growing ESBL E. Coli as well as pseudomonas, and gram positive miriam. Whitt catheter changed on this admission. Continue imipenem/cilastin (dose adjusted to pseudomonas). Plan for UA on Wednesday - if resolved, can be discharged to SNF. (6) Vascular dementia: Status: Chronic Assessment and plan: Mental status preserved. Follow up as outpatient. (7) Paroxysmal atrial fibrillation: Status: Chronic Assessment and plan: Currently NSR. Continue PO cardizem and metoprolol. Resume xarelto. Continue Telemetry. (8) Diabetes type 2, controlled: Status: Chronic Assessment and plan: Carb consistent diet Continue monitoring fingersticks/SSI. 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 Follow up as outpatient. (11) COPD (chronic obstructive pulmonary disease): Status: Chronic Assessment and plan: On presentation, was in acute exacerbation due to an aspiration event/suspected aspiration pneumonia. He has improved. D/c steroids. Continue symbicort; xopenex prn. (12) DVT prophylaxis: Status: Acute Assessment and plan: Resume xarelto (13) Discharge planning issues: Status: Acute Assessment and plan: DNR/DNI Continues to require hospitalization. Subjective Subjective Interval history since last seen: Denies Dizziness, chest pain, shortness of breath, nausea. BGs now up to 400s. We have asked the nursing [facility] if the patient was known to have a left facial droop before, but the answer seems to be no. I am not seeing a description of left facial droop in the neurology notes or my own notes from prior admissions with him. There is mention of old L hemiparesis in neurology notes. Exam Narrative Exam Narrative: General: Very pleasant elderly male who is sitting up in a chair, A&Ox3, but does not recognize me today HEENT: EOMI, MMM, I do see a facial droop - and I have seen it since admission Heart: RRR, no m/r/g Lungs: CTAB Abdomen: soft, nontender, nondistended Extremities: trace edema BLE's Objective Last Vital Signs Temp 36.1 C L 05/24/20 15:12 Pulse 61 05/24/20 16:03 Resp 20 05/24/20 15:12 BP 127/68 05/24/20 15:12 Pulse Ox 99 05/24/20 15:12 Laboratory Results - last 24 hr 05/24/20 05/24/20 06:45 06:45 WBC 7.35 D RBC 2.63 L Hgb 8.4 L Hct 24.9 L MCV 94.7 MCH 31.9 MCHC 33.7 RDW 12.4 Plt Count 234 MPV 10.1 Immature Gran % 0.8 Neutrophils % 71.4 Lymphocytes % 19.5 Monocytes % 8.2 Eosinophils % 0.0 Basophils % 0.1 Nucleated RBC % 0 Absolute Neutrophils 5.25 Absolute Lymphocytes 1.43 Absolute Monocytes 0.60 Absolute Eosinophils 0.00 Absolute Basophils 0.01 Sodium 140 Potassium 4.0 Chloride 109 H Carbon Dioxide 24.1 Anion Gap 6.9 BUN 42 H Creatinine 1.8 H Estimated GFR/1.73 m2 36.97 Glucose 265 H Calcium 8.0 L Magnesium 1.9
[2020-05-24] MEDS: Rivaroxaban 10 MG TABLET PO (18:09)
--- NOTE | 2020-05-24 19:39 | CMPROGNOTE_ITS ---
- If Service Date Differs Date of service: 05/24/20 Time of Service: 19:39 Care Management Progress Note S/O: Ed was sitting up in his chair when CM visited with him. He will remain at [facility] over the weekend to complete a course of IV abx. CM received correspondence from [facility], who asked for CM to deliver a letter stating that Ed owes money to their facility which needs to be settled prior to him returning. CM asked for guidance from administration, who agreed that [facility] cannot decline him from returning to their facility due to payment. CM offered to help have a LTD sherif signed. Ed agreed to sign the application, and also gave [facility] authorization to communicate with [facility] during the process. CM will continue to follow. A: 74 year old male admitted to [facility] 05/19/19 for difficulty swallowing, UTI, aspiration pneumonitis P: Edward will return to [facility] once medically cleared per MD. Awaiting further consults to determine further planning. He will transport via the facility's W/C van.
--- NOTE | 2020-05-24 19:39 | PDOC.CMPRO ---
- If Service Date Differs Date of service: 05/24/20 Time of Service: 19:39 Care Management Progress Note S/O: Ed was sitting up in his chair when CM visited with him. He will remain at [facility] over the weekend to complete a course of IV abx. CM received correspondence from [facility], who asked for CM to deliver a letter stating that Ed owes money to their facility which needs to be settled prior to him returning. CM asked for guidance from administration, who agreed that [facility] cannot decline him from returning to their facility due to payment. CM offered to help have a LTD sherif signed. Ed agreed to sign the application, and also gave [facility] authorization to communicate with [facility] during the process. CM will continue to follow. A: 74 year old male admitted to [facility] 05/19/19 for difficulty swallowing, UTI, aspiration pneumonitis P: Edward will return to [facility] once medically cleared per MD. Awaiting further consults to determine further planning. He will transport via the facility's W/C van.
[2020-05-24] MEDS: Normal Saline Flush 10 ML SYR IVP (20:50)
[2020-05-24] MEDS: Insulin Glargine 300 UNITS/3 ML PEN 10 UNITS SC (20:55)
[2020-05-24] MEDS: Atorvastatin 40 MG TAB 80 MG PO (21:02)
[2020-05-25] MEDS: IMIPENEM/CILASTATIN 500 MG in Normal Saline 100 ML 200 MG IVPB ×4 (01:43→20:09)
[2020-05-25 03:24] VITALS: BP 148/78; PULSE 68; RESP 18; TEMP 36.8; O2SAT 97
[2020-05-25 07:32] LABS: Anion Gap 6.9 mmol/L (3-11); BUN 42 mg/dL (7-18); CO2 23.1 mmol/L (21.0-32.0); CREATININE 1.9 mg/dL (0.70-1.30); Calcium 7.9 mg/dL (8.5-10.1); Chloride 106 mmol/L (98-107); Estimated GFR 34.73 (mL/min/1.73m2); Glucose 262 mg/dL (74-106); Magnesium 1.8 mg/dL (1.8-2.4); Potassium 3.6 mmol/L (3.5-5.1); Sodium 136 mmol/L (136-145)
[2020-05-25 07:53] VITALS: BP 154/75; PULSE 64; RESP 18; TEMP 36.8; O2SAT 94
[2020-05-25] MEDS: Finasteride 5 MG TAB PO (08:05)
[2020-05-25] MEDS: dilTIAZem CD 120 MG CAPCR 240 MG PO (08:05)
[2020-05-25] MEDS: Sucralfate 1 GM TAB PO ×4 (08:05→21:47)
[2020-05-25] MEDS: Oxybutynin 5 MG TAB PO ×2 (08:05→20:10)
[2020-05-25] MEDS: Sertraline 50 MG TAB 100 MG PO (08:06)
[2020-05-25] MEDS: levETIRAcetam 500 MG TAB 750 MG PO ×2 (08:06→20:10)
[2020-05-25] MEDS: Metoprolol CR 25 MG TABCR 12.5 MG PO (08:06)
[2020-05-25] MEDS: Tamsulosin 0.4 MG CAPCR 0.8 MG PO (08:07)
[2020-05-25] MEDS: Insulin Glargine 300 UNITS/3 ML PEN 10 UNITS SC ×2 (08:07→20:11)
[2020-05-25] MEDS: Insulin Aspart 300 UNITS/3 ML PEN SC ×4 (08:07→21:48)
[2020-05-25] MEDS: Normal Saline Flush 10 ML SYR IVP ×4 (08:08→20:09)
[2020-05-25] MEDS: Budesonide/Formoterol 160/4.5 6 GM 60 PUFF INH IH ×2 (08:23→20:10)
[2020-05-25] MEDS: Polyethylene Glycol 3350 17 GM PACKET PO (09:21)
--- NOTE | 2020-05-25 13:47 | W.PM.PROGNOT ---
Date of Service Date of service: 05/25/20 Time of Service: 13:47 Assessment and Plan Assessment and plan (1) Esophageal candidiasis: Start date: 05/25/20 Start time: 13:54 Status: Suspected Assessment and plan: It is possible this has resolved by the time of EGD. But no evidence thereof on EGD. D/c fluconazole/steroids. (2) Oropharyngeal candidiasis: Start date: 05/25/20 Start time: 13:54 Status: Resolved Assessment and plan: As above (3) Urinary tract infection: Start date: 05/25/20 Start time: 13:54 Status: Acute Assessment and plan: Present on admission. Urine C&S is growing ESBL E. Coli as well as pseudomonas, and gram positive miriam. Whitt catheter changed on this admission. Continue imipenem/cilastin (dose adjusted to pseudomonas) day 6/ can go back to SNIF on Wednesday Plan for UA on Wednesday - if resolved, can be discharged to SNF. (4) Vascular dementia: Start date: 05/25/20 Start time: 14:00 Status: Chronic Assessment and plan: Mental status preserved. Follow up as outpatient. (5) Paroxysmal atrial fibrillation: Start date: 05/25/20 Start time: 14:01 Status: Chronic Assessment and plan: Currently NSR. Transitioned to PO metoprolol afib controlled, d/c teley Resume xarelto. (6) Diabetes type 2, controlled: Start date: 05/25/20 Start time: 14:01 Status: Chronic Assessment and plan: Carb consistent diet Continue monitoring fingersticks/SSI. 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 Follow up as outpatient. (9) COPD (chronic obstructive pulmonary disease): Start date: 05/25/20 Start time: 14:02 Status: Chronic Assessment and plan: On presentation, was in acute exacerbation due to an aspiration event/suspected aspiration pneumonia. He has improved. D/c steroids. Continue symbicort; xopenex prn. (10) DVT prophylaxis: Start date: 05/25/20 Start time: 14:03 Status: Acute Assessment and plan: Resume xarelto (11) Discharge planning issues: Start date: 05/25/20 Start time: 14:03 Status: Acute Assessment and plan: DNR/DNI Can return to H/R on Wednesday after finishing 7 day course of antibiotics. above case discussed with Dr. Magana Subjective Subjective Patient reports: no new complaints Interval history since last seen: Sitting up in chair doing well looks great feeling better, able to speak in full sentences. Exam Narrative Exam Narrative: General: Very pleasant elderly male who is sitting up in a chair, A&Ox3, HEENT: EOMI, MMM, I do see a facial droop - and I have seen it since admission Heart: RRR, no m/r/g Lungs: CTAB Abdomen: soft, nontender, nondistended Extremities: trace edema BLE's Objective Last Vital Signs Temp 36.8 C 05/25/20 07:53 Pulse 64 05/25/20 07:53 Resp 18 05/25/20 07:53 BP 154/75 H 05/25/20 07:53 Pulse Ox 94 05/25/20 07:53 Laboratory Results - last 24 hr 05/25/20 06:36 Sodium 136 Potassium 3.6 Chloride 106 Carbon Dioxide 23.1 Anion Gap 6.9 BUN 42 H Creatinine 1.9 H Estimated GFR/1.73 m2 34.73 Glucose 262 H Calcium 7.9 L Magnesium 1.8
[2020-05-25 16:05] VITALS: BP 88/48; PULSE 54; RESP 16; TEMP 36; O2SAT 99
[2020-05-25] MEDS: Rivaroxaban 10 MG TABLET PO (17:15)
--- NOTE | 2020-05-25 18:04 | CMPROGNOTE_ITS ---
- If Service Date Differs Date of service: 05/25/20 Time of Service: 18:04 Care Management Progress Note S/O: Ed was sitting up eating lunch when CM met with him. He stated that he is feeling better. He reported that per provider, he would be able to return to [facility] soon. CM confirmed that he will be returning to [facility] likely Wednesday. He received a phone call while CM was in the room. CM will check in tomorrow. A: 74 year old male admitted to [facility] 05/19/19 for difficulty swallowing, UTI, aspiration pneumonitis P: Edward will return to [facility] once medically cleared per MD. Awaiting further consults to determine further planning. He will transport via the facility's W/C van.
--- NOTE | 2020-05-25 18:04 | PDOC.CMPRO ---
- If Service Date Differs Date of service: 05/25/20 Time of Service: 18:04 Care Management Progress Note S/O: Ed was sitting up eating lunch when CM met with him. He stated that he is feeling better. He reported that per provider, he would be able to return to [facility] soon. CM confirmed that he will be returning to [facility] likely Wednesday. He received a phone call while CM was in the room. CM will check in tomorrow. A: 74 year old male admitted to [facility] 05/19/19 for difficulty swallowing, UTI, aspiration pneumonitis P: Edward will return to [facility] once medically cleared per MD. Awaiting further consults to determine further planning. He will transport via the facility's W/C van.
[2020-05-25 20:08] VITALS: BP 103/62; PULSE 52; RESP 17; TEMP 36.1; O2SAT 99
[2020-05-25] MEDS: Atorvastatin 40 MG TAB 80 MG PO (21:47)
[2020-05-25 23:15] VITALS: BP 136/67; PULSE 63; RESP 17; TEMP 36.8; O2SAT 95
--- NOTE | 2020-05-26 | DI.RAD_ITS ---
EXAM: 2D digital imaging was performed. CLINICAL HISTORY: vomiting. COMPARISON: CT CT CHEST/ABD/PEL WO from 05/19/2020 CR RF BARIUM SWALLOW from 05/22/2020 TECHNIQUE: Supine and uprightSupine and Lateral views of the abdomen was performed. FINDINGS: BOWEL GAS PATTERN: Nondistended.No free air. Contrast and stool is seen within the colon. The amoun t of stool appears have decreased when compared with the previous CT. Colon is normal in diameter. OSSEOUS STRUCTURES: Degenerative disc changes. OTHER FINDINGS: Bladder catheter. Heart size is normal. Lung bases are clear. IMPRESSION: 1. Nonobstructive bowel gas pattern. DATA REPOSITORY: RADIATION DOSE DELIVERED:
[2020-05-26] MEDS: IMIPENEM/CILASTATIN 500 MG in Normal Saline 100 ML 200 MG IVPB ×4 (02:16→20:38)
[2020-05-26 06:54] VITALS: BP 149/60; PULSE 71; RESP 17; TEMP 36.4; O2SAT 96
[2020-05-26 07:08] LABS: Absolute Basophil Count 0.02 10^3/uL (0.0-0.2); Absolute Monocyte Count 0.67 10^3/uL (0.1-0.8); Absolute Neutrophil Count 5.98 10^3/uL (1.2-6.7); Basophils % 0.2; HCT 24.8 % (40.0-50.0); HGB 8.5 g/dL (13.5-17.5); Lymphocytes % 26.1; MCH 32.2 pg (27.0-33.0); MCHC 34.3 % (32.0-36.0); MCV 93.9 fL (80-95); MPV 10.2 fL (8.0-11.0); Monocytes % 6.7; Nucleated RBC 0 %; Platelet Count 245 10^3/uL (130-400); RBC 2.64 10^6/uL (4.36-5.78); RDW 12.6 % (11.8-14.1); RDW-SD 43.2 fL; WBC 9.97 10^3/uL (4.4-10.8)
[2020-05-26 07:21] LABS: C-Reactive Protein 0.77 mg/dL (0.0-0.3)
[2020-05-26 07:38] LABS: Procalcitonin < 0.1 ng/mL
[2020-05-26] MEDS: Ondansetron 4 MG/2 ML VIAL IVP (07:57)
[2020-05-26] MEDS: Normal Saline Flush 10 ML SYR IVP ×3 (07:58→20:42)
[2020-05-26 08:03] VITALS: BP 135/68; PULSE 63; RESP 16; TEMP 36.6; O2SAT 96
[2020-05-26] MEDS: Budesonide/Formoterol 160/4.5 6 GM 60 PUFF INH IH ×2 (08:17→20:37)
[2020-05-26] MEDS: Sertraline 50 MG TAB 100 MG PO (08:30)
[2020-05-26] MEDS: Tamsulosin 0.4 MG CAPCR 0.8 MG PO (08:30)
[2020-05-26] MEDS: Sucralfate 1 GM TAB PO ×4 (08:30→22:29)
[2020-05-26] MEDS: levETIRAcetam 500 MG TAB 750 MG PO ×2 (08:31→20:39)
[2020-05-26] MEDS: Oxybutynin 5 MG TAB PO ×2 (08:31→20:39)
[2020-05-26] MEDS: Finasteride 5 MG TAB PO (08:31)
[2020-05-26] MEDS: dilTIAZem CD 120 MG CAPCR 240 MG PO (08:31)
[2020-05-26] MEDS: Metoprolol CR 25 MG TABCR 12.5 MG PO (08:31)
[2020-05-26] MEDS: Insulin Aspart 300 UNITS/3 ML PEN SC ×4 (08:32→22:28)
[2020-05-26] MEDS: Insulin Glargine 300 UNITS/3 ML PEN 10 UNITS SC ×2 (08:33→20:38)
--- NOTE | 2020-05-26 10:23 | W.PM.PROGNOT ---
Date of Service Date of service: 05/26/20 Time of Service: 10:24 Assessment and Plan Assessment and plan (1) Urinary tract infection: Start date: 05/26/20 Start time: 10:27 Status: Acute Assessment and plan: Present on admission. Urine C&S is growing ESBL E. Coli as well as pseudomonas, and gram positive miriam. Whitt catheter changed on this admission. Continue imipenem/cilastin (dose adjusted to pseudomonas) day 10/30 can go back to SN[facility] on Wednesday Plan for UA on Wednesday - if resolved, can be discharged to SNF. (2) Vascular dementia: Start date: 05/26/20 Start time: 10:27 Status: Chronic Assessment and plan: Mental status preserved. Follow up as outpatient. (3) Paroxysmal atrial fibrillation: Start date: 05/26/20 Start time: 10: Status: Chronic Assessment and plan: Currently NSR. Transitioned to PO metoprolol afib controlled, d/c teley Resume xarelto. (4) Diabetes type 2, controlled: Start date: 05/26/20 Start time: 10: Status: Chronic Assessment and plan: Carb consistent diet Continue monitoring fingersticks/SSI. Reintroduce long acting insulin Qualifiers: Diabetes mellitus intermediate insulin use: with intermediate use Diabetes mellitus complication status: with unspecified complications Qualified Code(s): E11.8 - Type 2 diabetes mellitus with unspecified complications; Z79.4 - correction (current) use of insulin (5) Seizure disorder: Start date: 05/26/20 Start time: 10:27 Status: Chronic Assessment and plan: Continue keppra (6) CKD (chronic kidney disease): Start date: 05/26/20 Start time: 10:27 Status: Chronic Assessment and plan: At baseline. Follow up as outpatient. (7) COPD (chronic obstructive pulmonary disease): Start date: 05/26/20 Start time: 10:27 Status: Chronic Assessment and plan: On presentation, was in acute exacerbation due to an aspiration event/suspected aspiration pneumonia. He has improved. D/c steroids. Continue symbicort; xopenex prn. (8) DVT prophylaxis: Start date: 05/26/20 Start time: 10:27 Status: Acute Assessment and plan: Resume xarelto (9) Discharge planning issues: Start date: 05/26/20 Start time: 10:28 Status: Acute Assessment and plan: DNR/DNI Can return to H/R on Wednesday after finishing 7 day course of antibiotics. above case discussed with Dr. Magana Subjective Subjective Patient reports: no new complaints Interval history since last seen: He states he is feeling good though per nursing he vomiting this am then was drinking coffee. He finishes day 7 antibiotic today. He states he does not want to go back to h/r he wants to go home though he is unable to care for himself and if very forgetful. Exam Narrative Exam Narrative: General: Very pleasant elderly male who is sitting up in a chair, A&Ox3, HEENT: EOMI, MMM, facial droop, present on admission Heart: RRR, no m/r/g Lungs: CTAB Abdomen: soft, nontender, nondistended Extremities: trace edema BLE's Const General: cooperative and no acute distress Nutritional Appearance: average body habitus Orientation: alert HENMT Head: normocephalic and atraumatic Neck Neck: full ROM and supple Resp Effort & Inspection: normal respiratory effort Auscultation: rhonchi upper bilaterally and other (severe muciod to all parts of lungs) Cardio Jugular venous pressure: no JVD Rate: regular rate Rhythm: regular rhythm Heart Sounds: S1 normal and S2 normal GI Palpation: soft and nontender Auscultation: normal bowel sounds Skin General skin exam: no rashes or lesions noted Extrem General: no clubbing, cyanosis or edema, no pedal edema and no calf tenderness Psych Appearance: grossly normal Affect: normal affect Objective Last Vital Signs Temp 36.6 C 05/26/20 08:03 Pulse 63 05/26/20 08:03 Resp 16 05/26/20 08:03 BP 135/68 05/26/20 08:03 Pulse Ox 96 05/26/20 08:03 Laboratory Results - last 24 hr 05/26/20 05/26/20 05/26/20 06:10 06:10 06:10 WBC 9.97 RBC 2.64 L Hgb 8.5 L Hct 24.8 L MCV 93.9 MCH 32.2 MCHC 34.3 RDW 12.6 Plt Count 245 MPV 10.2 Immature Gran % 3.0 Neutrophils % 60.0 Lymphocytes % 26.1 Monocytes % 6.7 Eosinophils % 4.0 Basophils % 0.2 Nucleated RBC % 0 Absolute Neutrophils 5.98 Absolute Lymphocytes 2.60 Absolute Monocytes 0.67 Absolute Eosinophils 0.40 Absolute Basophils 0.02 C-Reactive Protein 0.77 H Procalcitonin < 0.1
--- NOTE | 2020-05-26 10:54 | DI.VRAD_ITS ---
PROCEDURE INFORMATION: Exam: XR Abdomen, 2 Views Exam date and time: 05/26/2020 10:44 AM Age: 74 years old Clinical indication: Other: Vomiting TECHNIQUE: Imaging protocol: XR of the abdomen. Views: 2 Views. COMPARISON: [facility]STRIC EMPTYING 08/17/2016 4:22 PM FINDINGS: Tubes, catheters and devices: Rectal tube in place. Gastrointestinal tract: Contrast material opacifies the entire colon which is dilated. No dilatation of small bowel loops. Intraperitoneal space: Normal. No free air. Bones/joints: Unremarkable for age. IMPRESSION: No evidence of bowel obstruction. There is complete opacification of the entire nondilated colon. Dictated and Authenticated by: Escobar Moreno MD. Ordering:TAVON Chappell MD
[2020-05-26] MEDS: Polyethylene Glycol 3350 17 GM PACKET PO (11:49)
[2020-05-26 16:03] VITALS: BP 131/89; PULSE 54; RESP 17; TEMP 36.9; O2SAT 97
[2020-05-26] MEDS: Senna TAB 2 TAB PO (16:48)
[2020-05-26] MEDS: Rivaroxaban 10 MG TABLET PO (18:21)
--- NOTE | 2020-05-26 18:38 | PDOC.CMPRO ---
- If Service Date Differs Date of service: 05/26/20 Time of Service: 18:38 Care Management Progress Note S/O: Ed was sleeping when CM attempted to meet with him. Per report, he has completed his abx course and will be ready for discharge tomorrow. CM will coordinate his return to [facility] in the morning. CM will continue to follow. A: 74 year old male admitted to [facility] 05/19/19 for difficulty swallowing, UTI, aspiration pneumonitis P: Edward will return to [facility] once medically cleared per MD. Awaiting further consults to determine further planning. He will transport via the facility's W/C van.
[2020-05-26] MEDS: Atorvastatin 40 MG TAB 80 MG PO (22:29)
[2020-05-26 23:17] VITALS: BP 140/70; PULSE 60; RESP 18; TEMP 36.6; O2SAT 96
[2020-05-27 07:33] LABS: Bilirubin Negative (Negative); Blood Trace-intact (Negative); Clarity Clear (Clear); Glucose Negative (Negative); Ketones Negative (Negative); Leukocyte Esterase Trace (Negative); Nitrite Negative (Negative); Specific Gravity 1.015 (1.005-1.025); Urobilinogen 0.2 EU/dL (Up TO 0.2)
[2020-05-27 07:57] LABS: Bacteria Few HPF (Negative); C & S Indicated? Yes; Casts Negative LPF (Negative); Crystals Negative HPF (Negative); Epithelial Cells Rare HPF (Negative); Mucus Negative (Negative); Other Cells Moderate Yeast (Negative); RBC 0-2 HPF (0-2)
--- NOTE | 2020-05-27 08:06 | PCNE_ITS ---
Date of service: 05/27/20 Time of Service: 08:06 History of Present Illness History of Present Illness Chief Complaint: difficulty swallowing Narrative: 74-year-old resident [facility] who had something lodged in his throat earlier in the day. He ended up coming to the hospital because he states that he could not swallow anything without vomiting it up. 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 During his hospitalization he was treated for a UTI with IV antibiotics and underwent EGD. The EGD showed probable oral thrush and reflux He states that he is feeling much better and anticipating return to [facility] later today. Consults Consult date: 05/27/20 Requesting physician: Yoselyn Hdz Assessment and Plan Assessment and plan (1) Esophageal candidiasis: Status: Ruled-out (2) CKD (chronic kidney disease): Status: Chronic (3) COPD (chronic obstructive pulmonary disease): Status: Chronic (4) Urinary tract infection: Status: Acute (5) Palliative care patient: Status: Acute Assessment and plan: At this time Doroteo is ready to return to [facility]. His COPD is stable, and urinary tract infection is ESBL E Coli, kidneys improved. His catheter was changed on admission he will continue this when he is back in [facility]. He has not had any seizures and was stable on his Keppra. For his atrial fibrillation he will continue on the metoprolol Xarelto and Cardizem. Regarding his throat, he did undergo barium swallow and EGD there is some suspicion for aspiration pneumonitis as well as esophageal candidiasis. He is considered a high risk person as he goes back to [facility]. I think it would be helpful to follow him as palliative care and will make an appointment for approximately 1 month after returning to H&R. Doroteo agreed to this. Thank you very much for this consult (6) DNR (do not resuscitate): Status: Acute Review of Systems Narrative: He states that today he is feeling much better. He does not have problems swallowing. He has no shortness of breath. No change in taste or smell. He cannot remember the last time he had a bowel movement. He has no chest pain. There is no specific aches or pains which are [facility] Medical History (Updated 05/28/20 @ 16:44 by Amy Albarado MD, [place]) Cerebrovascular disease CVA CKD (chronic kidney disease) COPD (chronic obstructive pulmonary disease) Diabetes Diabetic gastroenteropathy GERD (gastroesophageal reflux disease) HTN (hypertension) Hyperlipidemia Seizure Urinary retention Surgical History EGD - MAC (07/28/16) S/P insertion of penile implant S/P prostatectomy Social History Smoking/Tobacco Use Status: Former Tobacco Use Smoking risk assessment performed?: Yes Alcohol Intake: never Drug use: Never Substance use type: does not use Household members: children 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 What is your relationship status?: Panel score (0-1 are the most socially isolated patients): 0 Seatbelt use: never Do you feel safe at home: Yes Do you feel safe in your relationship?: Yes Exam Const General: comfortable Nutritional Appearance: average body habitus Orientation: awake Resp Effort & Inspection: normal respiratory effort and able to speak in complete sentences Auscultation: diminished lung sounds and no wheezes Cardio Rhythm: abnormal rhythm GI Palpation: soft and no hepatosplenomegaly Auscultation: normal bowel sounds General: No CVA tenderness Results Last Vital Signs Temp 97.9 F 05/26/20 23:17 Pulse 60 05/26/20 23:17 Resp 18 05/26/20 23:17 BP 140/70 05/26/20 23:17 Pulse Ox 96 05/26/20 23:17 Labs Result diagrams: 05/26/20 06:10 05/25/20 06:36 Labs: Laboratory Results - last 24 hr 05/27/20 06:50 Urine Color Yellow Urine Clarity Clear Urine pH 6.0 Ur Specific [place] 1.015 Urine Protein >=300 H Urine Ketones Negative Urine Blood Trace-intact H Urine Nitrite Negative Urine Bilirubin Negative Urine Urobilinogen 0.2 Ur Leukocyte Esterase Trace H Urine RBC 0-2 Urine WBC 10-20 H Ur Epithelial Cells Rare Urine Crystals Negative Urine Bacteria Few Urine Casts Negative Urine Mucus Negative Urine Other Moderate yeast Ur Culture Indicated? Yes Urine Glucose Negative
[2020-05-27] MEDS: dilTIAZem CD 120 MG CAPCR 240 MG PO (08:42)
[2020-05-27] MEDS: Finasteride 5 MG TAB PO (08:43)
[2020-05-27] MEDS: Insulin Aspart 300 UNITS/3 ML PEN SC ×2 (08:43→12:07)
[2020-05-27] MEDS: levETIRAcetam 500 MG TAB 750 MG PO (08:44)
[2020-05-27] MEDS: Insulin Glargine 300 UNITS/3 ML PEN 10 UNITS SC (08:44)
[2020-05-27 08:45] VITALS: BP 150/77; PULSE 68; RESP 18; TEMP 36.4; O2SAT 95
[2020-05-27] MEDS: Metoprolol CR 25 MG TABCR 12.5 MG PO (08:45)
[2020-05-27] MEDS: Sertraline 50 MG TAB 100 MG PO (08:46)
[2020-05-27] MEDS: Sucralfate 1 GM TAB PO ×2 (08:46→12:08)
[2020-05-27] MEDS: Tamsulosin 0.4 MG CAPCR 0.8 MG PO (08:47)
[2020-05-27] MEDS: Oxybutynin 5 MG TAB PO (09:00)
[2020-05-27] MEDS: Budesonide/Formoterol 160/4.5 6 GM 60 PUFF INH IH (09:38)
[2020-05-27 11:03] LABS: Source Nasopharynx
--- NOTE | 2020-05-27 11:14 | DSE_ITS ---
Date of service: 05/27/20 Time of Service: 11:14 DS: Diagnosis Discharge Diagnosis (1) Urinary tract infection: Status: Acute (2) Vascular dementia: Status: Chronic (3) Paroxysmal atrial fibrillation: Status: Chronic (4) Diabetes type 2, controlled: Status: Chronic (5) Seizure disorder: Status: Chronic (6) CKD (chronic kidney disease): Status: Chronic (7) COPD (chronic obstructive pulmonary disease): Status: Chronic Discharge Plan Disposition Patient Disposition: SNF (LEVEL [facility]) [facility] Condition: Stable Discharge Details Reason For Visit: DIFFICULTY SWALLOWING, UTI, ASPIRATION PNEUMONITIS Admit Date/Time: 05/20/20 09:21 Admit Provider: Reggie Campos Attending Provider: Reggie Campos Primary Care Provider: Isak Magana [facility] Hospital Course: This is a 74 year old male with history of vascular dementia, chronic obstructive pulmonary disease, paroxysmal atrial fibrillation, chronic kidney disease, urinary retention with chronic indwelling catheter, seizures who [facility], presented to the ED with reports of difficulty swallowing. He has a history of impaired gastric emptying noted on a study in 2017. EGD showed Barretts esophagus. In the ED his RA O2 saturation ranged from 85-95%. Mild crackles were noted in the bases, suspicious for aspiration pneumonitis. CT chest showed emphysematous changes but no acute findings. His urine was positive for nitrites and WBCs. he was admitted to hospitalist services on antibiotics for management. COPD acute exacerbation on presentation most likely due to an aspiration event/suspected aspiration pneumonia and was treated with steroids and updrafts, responded and is now at baseline and oxygenating well with no respiratory distress. His dysphagia was likely esophageal in origin (esophageal thrush), Barium swallow negative. EGD without esophageal issues, though did show gastritis. He should continue modified diet and carafate His urine grew ESBL E. Coli as well as pseudomonas, and gram positive miriam. Whitt catheter changed on this admission. He completed 7 days of imipen em/cilastin (dose adjusted to pseudomonas). He had no seizures and was stable on his keppra chronic kidney disease at baseline. He has history of PAF but remained in NSR, he should continue with cardizem, metoprolol and xarelto (renal dosing). discharge discussed with DR Magana Home Meds and New Rx's Prescriptions: New sucralfate 1 gram Tablet 1 g PO AC & HS Qty: 120 RF: 0 Continued magnesium oxide 400 mg magnesium tablet 400 mg PO DAILY RF: 0 levetiracetam 750 mg tablet 750 mg PO BID RF: 0 lidocaine [Lidoderm] 5 % adhesive patch,medicated 1 patch topical DAILY RF: 0 tramadol 50 mg tablet 25 mg PO Q8H PRNRF: 0 multivitamin 1 EACH tablet 1 tab PO DAILY RF: 0 sertraline 100 MG tablet 100 mg PO DAILY RF: 0 atorvastatin [Lipitor] 40 MG tablet 80 mg PO HS RF: 0 insulin aspart U-100 [Novolog Flexpen U-100 Insulin] 100 unit/mL (3 mL) Insulin Pen 0 units subcut AC & HS Qty: 0 RF: 0 fluticasone propion-salmeterol [Advair Diskus] 250-50 mcg/dose Blister With Device 1 inh INHALATION BID RF: 0 diltiazem HCl [DILT-XR] 240 mg Capsule,Ext.Rel 24h Degradable 240 mg PO DAILY RF: 0 melatonin 3 mg Tablet 3 mg PO HS PRNRF: 0 albuterol sulfate [ProAir HFA] 90 mcg/actuation Hfa Aerosol Inhaler 2 puff INHALATION Q6H PRNRF: 0 finasteride 5 mg Tablet 5 mg PO DAILY RF: 0 tamsulosin 0.4 MG capsule 0.8 mg PO DAILY Qty: 60 RF: 0 oxybutynin chloride 5 mg tablet 5 mg PO BID RF: 0 insulin aspart U-100 [Novolog Flexpen U-100 Insulin] 300 UNITS/3 ML insulin pe n 24 unit SQ BID RF: 0 acetaminophen 325 mg tablet 650 mg PO PRN PRN (Reason: Pain) RF: 0 metoprolol succinate 25 mg Tablet Extended Release 24 Hr 12.5 mg PO DAILY RF: 0 Changed Lantus Solostar U-100 Insulin 100 unit/mL (3 mL) Insulin Pen 10 unit subcut BID Qty: 0 RF: 0 Xarelto 15 mg tablet 10 mg PO DAILY@1800 Qty: 0 RF: 0 Discontinued furosemide 40 mg tablet 40 mg PO DAILY RF: 0 phenazopyridine [Pyridium] 100 mg tablet 100 mg PO TID PRNRF: 0 omeprazole 40 MG capsule,delayed release(DR/EC) 40 mg PO DAILY Qty: 60 RF: 3 potassium chloride 20 mEq tablet,ER particles/crystals 20 meq PO BID Qty: 20 RF: 0 amoxicillin-pot clavulanate 875-125 mg tablet 1 tab PO BID RF: 0 nitrofurantoin monohyd/m-cryst 100 mg capsule 100 mg PO DAILY RF: 0 Discharge Instructions Instructions: COPD (Chronic Obstructive Pulmonary Disease) (DC), Catheter- associated Urinary Tract Infection (DC) Additional Instructions: resume usual rehab routine Stand Alone Forms: Nursing Discharge Form Referrals: Amy Albarado MD, [facility] [[facility]] - (Dr. Albarado will see you over at the shelter in two weeks) Activity:: Activity as Tolerated Equipment/Supplies:: No Equipment Needed Diet:: Carb Counting DS: Summary Time Spent with Patient providing and/or coordinating discharge services: Greater than 30 minutes Status at Discharge Functional status at discharge: uses cane/walker Overall status at discharge: patient is progressing back to baseline Mental Status: mental status grossly normal Speech and Movement: speech and movement normal Mood: congruent mood Affect: normal affect Exam Psych Mental Status: mental status grossly normal Speech and Movement: speech and movement normal Mood: congruent mood Affect: normal affect DS: Data Vitals/I&O Vitals and I&O: Vital Signs Temperature 36.6 C 05/26/20 23:17 Temperature Source Tympanic 05/26/20 23:17 Pulse 60 05/26/20 23:17 Pulse Rhythm Irregular 05/27/20 02:35 Pulse 96 H 05/20/20 00:01 Respiratory Rate 18 05/26/20 23:17 Respiratory Effort Non-Labored 05/27/20 02:35 Respiratory Depth Normal 05/27/20 02:35 Respiratory Pattern Normal 05/27/20 02:35 Blood Pressure 140/70 05/26/20 23:17 Blood Pressure Mean 88 05/20/20 00:01 Pulse Oximetry 96 05/26/20 23:17 Oxygen Delivery Method Room Air 05/26/20 23:17 Oxygen Flow Rate 0 05/26/20 23:17 Fraction of Inspired Oxygen (FIO2) 05/21/20 09:53 Pain Level 0 05/26/20 23:17 Comment 05/26/20 22:45 Intake & Output 05/26/20 05/26/20 05/27/20 11:59 23:59 11:59 Intake Total 1120 / 1680 560 / 1680 Output Total 1425 / 2675 1250 / 2675 1500 / 1500 Balance -305 / -995 -690 / -995 -1500 / -1500 Weight 89.5 kg Intake: IV 210 / 410 200 / 410 Oral 910 / 1270 360 / 1270 Output: Urine 1325 / 2575 1250 / 2575 1500 / 1500 Emesis 100 / 100 Other: Urine Color Yellow Light Kirstin Pale Yellow Urine Appearance Clear Cloudy Clear Sediment Comment white sediment noted Emesis Description Bile Clear/Water Data Completed and Pending Labs on day of discharge: Labs from last 24 hours 05/27/20 05/27/20 10:55 06:50 Urine Color Yellow Urine Clarity Clear Urine pH 6.0 Ur Specific [place] 1.015 Urine Protein >=300 H Urine Ketones Negative Urine Blood Trace-intact H Urine Nitrite Negative Urine Bilirubin Negative Urine Urobilinogen 0.2 Ur Leukocyte Esterase Trace H Urine RBC 0-2 Urine WBC 10-20 H Ur Epithelial Cells Rare Urine Crystals Negative Urine Bacteria Few Urine Casts Negative Urine Mucus Negative Urine Other Moderate yeast Ur Culture Indicated? Yes Urine Glucose Negative COVID-19 Source Pending SARS-CoV-2 (PCR) Pending 05/27/20 06:50 Urine - Reflex from Urine Culture - Pending Preliminary micro results at discharge 05/27/20 06:50 Urine Culture - Pending Urine - Reflex from [facility] Medical History (Updated 05/26/20 @ 10:26 by Misti Stinson NP) Cerebrovascular disease CVA CKD (chronic kidney disease) COPD (chronic obstructive pulmonary disease) Diabetes Diabetic gastroenteropathy GERD (gastroesophageal reflux disease) HTN (hypertension) Hyperlipidemia Seizure Urinary retention Surgical History EGD - MAC (07/28/16) S/P insertion of penile implant S/P prostatectomy Social History Smoking/Tobacco Use Status: Former Tobacco Use Smoking risk assessment performed?: Yes Alcohol Intake: never Drug use: Never Substance use type: does not use Household members: children 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
[2020-05-27 11:59] LABS: COVID-19 PCR Negative (Negative); Influenza A PCR Negative (Negative); Influenza B PCR Negative (Negative); RSV PCR Negative (Negative)
--- NOTE | 2020-05-27 13:47 | CMDISCH_ITS ---
- If Service Date Differs Date of service: 05/27/20 Time of Service: 13:47 LACE Index Scoring Tool - Questions: Length of Stay (in days): 7 - 13 Acuity (Admit via E.D.?): Yes Comorbidities: Diabetes w/o Complication, Chronic Pulmonary Disease, Liver or Renal Disease E.D. Visits: 3 - Answers: Total Score: 16 Risk of Readmission: High Risk Care Management Discharge Reason for Hospitalization: Difficulty swallowing, UTI, Aspiration pneumonia Discharge Plan: Edtara returned to [facility] today, which is where he currently resides. He was transported via w/c van, coordinated by [facility]. CM sent the LTD application to admissions, [facility], who will follow up with him to complete it. He will follow up with his PCP and discharge plan of care. Patient/Family Education Needs: Review discharge instructions regarding activity level and medications, discussion of self care needs and goals of care. Services Needed at Discharge: Custodial Facility ([facility]), Transportation (w/c van)
== END 2020-05-27 12:59 | disposition skilled nursing facility (03) | DRG 368 ==
LOC: ER 23:36 → MS 05-20 00:11
PROVIDERS: Internal Medicine; Nurse Practitioner Acute Care; Nurse Practitioner Family; Surgery; Admitting Provider Family Medicine; Emergency Provider Emergency Medicine; PCP Family Medicine; Visit Provider Family Medicine
PROC: 0DJ68ZZ Inspection of Stomach, Via Natural or Artificial Opening Endoscopic (ICD-10-PCS; CPT 43235; principal; 2020-05-23 09:00)
DX: B37.81 Candidal esophagitis (principal); J69.0 Pneumonitis due to inhalation of food and vomit; N39.0 Urinary tract infection, site not specified; Z16.12 Extended spectrum beta lactamase (ESBL) resistance; J44.1 Chronic obstructive pulmonary disease with (acute) exacerbation; B37.0 Candidal stomatitis; K29.70 Gastritis, unspecified, without bleeding; R29.810 Facial weakness; B96.29 Other Escherichia coli [E. coli] as the cause of diseases classified elsewhere; B96.5 Pseudomonas (aeruginosa) (mallei) (pseudomallei) as the cause of diseases classified elsewhere; F01.50 Vascular dementia, unspecified severity, without behavioral disturbance, psychotic disturbance, mood disturbance, and anxiety; I48.0 Paroxysmal atrial fibrillation; Z79.4 Long term (current) use of insulin; J44.9 Chronic obstructive pulmonary disease, unspecified; N18.9 Chronic kidney disease, unspecified; G40.909 Epilepsy, unspecified, not intractable, without status epilepticus; I67.9 Cerebrovascular disease, unspecified; E11.43 Type 2 diabetes mellitus with diabetic autonomic (poly)neuropathy; K31.84 Gastroparesis; E78.5 Hyperlipidemia, unspecified; R33.9 Retention of urine, unspecified; E11.22 Type 2 diabetes mellitus with diabetic chronic kidney disease; Z87.891 Personal history of nicotine dependence; Z66 Do not resuscitate; I12.9 Hypertensive chronic kidney disease with stage 1 through stage 4 chronic kidney disease, or unspecified chronic kidney disease
CPT/HCPCS: 43239; 36415; 71250; 80048; 80053; 83690; 84145; 87077; 87880; 88305; 92526; 92610; 94640; 96361; 96365; 99221; 99222; 99231; 99232; 99233; 99239; 99253; 99285; U0003; 70450; 70490; 74019; 74176; 74221; 81003; 81015; 82248; 83036; 83735; 85025; 85610; 85730; 86140; 87081; 87086; 87186; G0378; J0131; J0743; J1450; J1953; J2001; J2405; J2704; J2930; J7512; J7608; J7614; J7620

== ENCOUNTER 2020-05-27 16:47 | Outpatient (REF) | payer MEDICARE, SELFPAY ==
[2020-05-28 14:48] LABS: COVID-19 RT-PCR Result Not Detected ((See Note))
== END 2020-05-27 17:07 ==
LOC: LBN 16:47
PROVIDERS: PCP Family Medicine; Visit Provider Nurse Practitioner Adult Health
DX: Z20.822 Contact with and (suspected) exposure to COVID-19 (principal)
CPT/HCPCS: U0003; U0005

== ENCOUNTER 2020-05-31 19:16 | Outpatient (REF) | payer MEDICARE, SELFPAY ==
[2020-06-03 17:57] LABS: COVID-19 RT-PCR Result Not Detected ((See Note))
== END 2020-05-31 19:17 | disposition home or self-care (01) ==
LOC: LBN 19:16
PROVIDERS: PCP Family Medicine; Visit Provider Nurse Practitioner Adult Health
DX: Z20.822 Contact with and (suspected) exposure to COVID-19 (principal)
CPT/HCPCS: U0003

== ENCOUNTER 2020-06-05 22:44 | Outpatient (REF) | payer MEDICARE, SELFPAY ==
[2020-06-06 16:28] LABS: COVID-19 RT-PCR Result Not Detected ((See Note))
== END 2020-06-05 22:45 | disposition home or self-care (01) ==
LOC: LBN 22:44
PROVIDERS: PCP Family Medicine; Visit Provider Nurse Practitioner Adult Health
DX: Z20.822 Contact with and (suspected) exposure to COVID-19 (principal)
CPT/HCPCS: U0003; U0005

== ENCOUNTER 2020-06-26 09:35 | Emergency (ER) | payer MEDICARE, MEDICAID, SELFPAY ==
[2020-06-26] VITALS (31 sets, daily range): BP systolic 72–134; BP diastolic 48–92; PULSE 51–103; RESP 10–21; TEMP 36.5–36.7; O2SAT 81–100
--- NOTE | 2020-06-26 09:00 | RT.EKG_ITS ---
APPROVED REPORT Exam: Resting ECG Patient Location: E HR:57 bpm ECG Measurements Heart Rate 57 AXIS FL 182 P 83 QRSd 82 QRS 24 QT 457 T 61 QTc 445 Conclusion Sinus bradycardia...rate< 60 Low voltage, extremity leads...all extremity leads <0.5mV
--- NOTE | 2020-06-26 09:21 | ED.GENADUL_ITS ---
Discharge Plan Disposition Patient Disposition: SNF (LEVEL 1) [facility] Condition: Stable Discharge Details Clinical Impression: UTI (urinary tract infection), Spell of altered cognition Primary Care Provider: Isak Magana ED Provider: Timbo Taylor Home Meds and New Rx's Prescriptions: New cefdinir 300 mg capsule 300 mg PO BID Qty: 14 RF: 0 Continued magnesium oxide 400 mg magnesium tablet 400 mg PO DAILY RF: 0 levetiracetam 750 mg tablet 750 mg PO BID RF: 0 lidocaine [Lidoderm] 5 % adhesive patch,medicated 1 patch topical DAILY RF: 0 tramadol 50 mg tablet 25 mg PO Q8H PRNRF: 0 multivitamin 1 EACH tablet 1 tab PO DAILY RF: 0 sertraline 100 MG tablet 100 mg PO DAILY RF: 0 atorvastatin [Lipitor] 40 MG tablet 80 mg PO HS RF: 0 insulin aspart U-100 [Novolog Flexpen U-100 Insulin] 100 unit/mL (3 mL) Insulin Pen 0 units subcut AC & HS Qty: 0 RF: 0 fluticasone propion-salmeterol [Advair Diskus] 250-50 mcg/dose Blister With Device 1 inh INHALATION BID RF: 0 diltiazem HCl [DILT-XR] 240 mg Capsule,Ext.Rel 24h Degradable 240 mg PO DAILY RF: 0 melatonin 3 mg Tablet 3 mg PO HS PRNRF: 0 albuterol sulfate [ProAir HFA] 90 mcg/actuation Hfa Aerosol Inhaler 2 puff INHALATION Q6H PRNRF: 0 finasteride 5 mg Tablet 5 mg PO DAILY RF: 0 tamsulosin 0.4 MG capsule 0.8 mg PO DAILY Qty: 60 RF: 0 oxybutynin chloride 5 mg tablet 5 mg PO BID RF: 0 insulin aspart U-100 [Novolog Flexpen U-100 Insulin] 300 UNITS/3 ML insulin pen 24 unit SQ BID RF: 0 acetaminophen 325 mg tablet 650 mg PO PRN PRN (Reason: Pain) RF: 0 metoprolol succinate 25 mg Tablet Extended Release 24 Hr 12.5 mg PO DAILY RF: 0 sucralfate 1 gram Tablet 1 g PO AC & HS Qty: 120 RF: 0 Lantus Solostar U-100 Insulin 100 unit/mL (3 mL) Insulin Pen 10 unit subcut BID Qty: 0 RF: 0 Xarelto 15 mg tablet 10 mg PO DAILY@1800 Qty: 0 RF: 0 Discharge Instructions Additional Instructions: Your blood work was unremarkable, you do have evidence of a uti on your urine you declined to be admitted for observation at this time if you feel more ill or would want further treatment in the hospital you can always return to the emergency department Medical Decision Making 74 yo male with hx of dysphagia, ckd, copd, seizure disorder, vascular dementia, afib, who has a chronic vicente in place, comes in with [facility] after having altered mental status. He apparently woke up feeling generally weak this morning. He was unable to get out of bed without assistance and apparently was unrepsonsive when staff checked on him just prior to arrival and had a BP of 60 so ems was called. EMS arrived and he was alert to voice and arrives with stable vital signs. He has his eyes closed but opens them to voice. He is able to lift his arms and legs off the bed for a few seconds before putting them back on the bed due to stating he feels weak everywhere. Normal sensation on exam, PERRL, EOMI. He does intermittently close his eyes during exam but will open them back up when I ask him to. Unclear etiology for his unresponsive episode earlier and general weakness here. He has no focal deficits to suggest cva and has felt weak since waking up so woud not be lytic candidate. He is dnr/dni and confirms this on my exam. Will evaluate for possible sdh or other intracranial pathology with ct head. Will also evaluate for anemia, electrolyte disorder and uti and reassess. No seizure like activity reported so unlikely the cause for his weakness/unresponsive episode earlier. Pt remains stable at current time, blood work unremarkable from baseline and urine does show evidence of uti. I had discussion with the patient and given the syncope and continued general malaise recommended admission for continued monitoring and treatmen of his uti. He is currently caox4 and has capacity to make his own decisions and declines admission at this time. He clearly states he is dnr/dni and would want limited interventions at this time and wants to go back to rehab. He understands risks of not being hospitalized including permanent disability and and is willing to accept these risks. Will give him a dose of ceftriaxone and prescribe antibiotics. He understands if he changes his mind or would want further care can return at any time Differential Diagnosis Differential Diagnosis: uti, seizure, electrolyte abnormality, aspiration Medical Records Medical records reviewed: Yes I reviewed the patient's medical records. Imaging Data Radiologic Study: Attestation: I personally reviewed and interpreted this imaging study as follows: Imaging: CT Scan Radiologist's impression: IMPRESSION: 1. No acute intracranial process. 2. No acute fracture or subluxation in the cervical spine. 3. Findings were discussed with the emergency department on the date of the examination Radiologic Study #2: Attestation: I personally reviewed and interpreted this imaging study as follows: Imaging: X-Ray Radiologist's impression: Patient Name: REJI THORPE #: [id number]: ER Ordering Provider: Timbo Taylor M.D. : REG ER Primary Care Provider: Denny Magana of Exam: 06/26/20Sex: M Admission Date: 06/26/20 : 1945 Age: 74 Exam(s) a RAD:XR chest 2V PA & lateral EXAM: XR CHEST 2V PA LATERAL CLINICAL HISTORY: ?aspiration TECHNIQUE: 2D digital imaging was performed. COMPARISON: CR XR PORTABLE CHEST AP from 12/22/2018 CR XR CHEST 2V PA LATERAL from 03/10/2019 CR RF BARIUM SWALLOW from 05/22/2020 FINDINGS: MEDIASTINUM: Normal. HEART: Normal. PULMONARY VASCULATURE: Normal. LUNGS: Clear. PLEURAL SPACE: No pleural effusion or pneumothorax. BONE:Within normal limits for the patient's age. OTHER FINDINGS:Normal. IMPRESSION: No acute pulmonary findings. Lab Data Lab results reviewed: Yes I reviewed the patient's lab results. ECG Data Attestation: I personally reviewed and interpreted this ECG (s) as follows: Prior ECG tracings: not available for review Interpretation: sinus bradycardia, rate of 57, qtc 445, no acute st t wave ischemic findings HPI General Mode of arrival: EMS . Date/Time Provider Initiated Documentation: 06/26/20 09:42 . Information obtained by: patient and EMS . History of Present Illness 74 year old M presents to the emergency department with the chief complaint of weak, described as moderate, Patient started experiencing this unknown and it has been constant. No relieving factors improve symptom(s), No exacerbating factors reported . Patient did receive the following treatments prior to arrival, none Related Data Home Medications Medication Instructions Recorded Confirmed multivitamin 1 tab PO DAILY 02/08/15 05/19/20 sertraline 100 mg PO DAILY 02/08/15 05/19/20 atorvastatin [Lipitor] 80 mg PO HS tab 10/18/17 05/19/20 albuterol sulfate [ProAir HFA] 2 puff INHALATION Q6H PRN 12/04/18 05/19/20 diltiazem HCl [DILT-XR] 240 mg PO DAILY 12/04/18 05/19/20 finasteride 5 mg PO DAILY 12/04/18 05/19/20 fluticasone propion-salmeterol 1 inh INHALATION BID 12/04/18 05/19/20 [Advair Diskus] melatonin 3 mg PO HS PRN 12/04/18 05/19/20 tamsulosin 0.8 mg PO DAILY #60 cap 12/06/18 05/19/20 insulin aspart U-100 [Novolog 0 units SUBCUT AC & HS #0 ml 03/16/19 05/19/20 Flexpen U-100 Insulin] magnesium oxide 400 mg PO DAILY 05/18/19 05/19/20 levetiracetam 750 mg tablet 750 mg PO BID 01/10/20 05/19/20 lidocaine 5 % topical patch 1 patch TOPICAL DAILY 01/10/20 01/10/20 tramadol 50 mg tablet 25 mg PO Q8H PRN tab 01/10/20 05/19/20 acetaminophen 650 mg PO PRN PRN 05/19/20 05/19/20 insulin aspart U-100 [Novolog 24 unit SQ BID 05/19/20 05/19/20 Flexpen U-100 Insulin] oxybutynin chloride 5 mg PO BID 05/19/20 05/19/20 metoprolol succinate 12.5 mg PO DAILY 05/23/20 05/23/20 Lantus Solostar U-100 Insulin 10 unit SUBCUT BID #0 ml 05/27/20 05/19/20 Xarelto 10 mg PO DAILY@1800 #0 tab 05/27/20 05/19/20 sucralfate 1 g PO AC & HS #120 tab 05/27/20 cefdinir 300 mg PO BID #14 cap 06/26/20 Previous Rx's Medication Instructions Recorded atorvastatin [Lipitor] 80 mg PO HS tab 10/18/17 tamsulosin 0.8 mg PO DAILY #60 cap 12/06/18 insulin aspart U-100 [Novolog 0 units SUBCUT AC & HS #0 ml 03/16/19 Flexpen U-100 Insulin] Lantus Solostar U-100 Insulin 10 unit SUBCUT BID #0 ml 05/27/20 Xarelto 10 mg PO DAILY@1800 #0 tab 05/27/20 sucralfate 1 g PO AC & HS #120 tab 05/27/20 cefdinir 300 mg PO BID #14 cap 06/26/20 Allergies Allergy/AdvReac Type Severity Reaction Status Date / Time No Known Allergies Allergy Unverified 05/19/20 21:55 General KAELA: 3 Review of Systems All systems reviewed & are unremarkable except as noted in HPI and below Constitutional Constitutional: Denies chills and Denies fever(s) Cardiovascular Cardiovascular: Denies chest pain and Denies dyspnea Respiratory Respiratory: Denies cough and Denies dyspnea Gastrointestinal Gastrointestinal: Denies abdominal pain, Denies nausea and Denies vomiting Musculoskeletal Musculoskeletal: Denies joint swelling [facility] Medical History (Updated 06/26/20 @ 11:37 by Timbo Taylor MD) Cerebrovascular disease CVA CKD (chronic kidney disease) COPD (chronic obstructive pulmonary disease) Diabetes Diabetic gastroenteropathy GERD (gastroesophageal reflux disease) HTN (hypertension) Hyperlipidemia Seizure Urinary retention Surgical History EGD - MAC (07/28/16) S/P insertion of penile implant S/P prostatectomy Social History Smoking/Tobacco Use Status: Former Tobacco Use Smoking risk assessment performed?: Yes Alcohol Intake: never Drug use: Never Substance use type: does not use Household members: children 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 What is your relationship status?: Panel score (0-1 are the most socially isolated patients): 0 Seatbelt use: never Do you feel safe at home: Yes Do you feel safe in your relationship?: Yes Exam Const General: other (eyes closed but will open to voice) Orientation: oriented to person, oriented to place and oriented to time HENMT Head: normal to inspection Ears: external ears normal General nose exam: external nose normal Mouth: moist mucous membranes Eyes General: appearance normal, both eyes and all related structures EOM: No nystagmus Neck Neck: normal visual inspection Resp Effort & Inspection: normal respiratory effort and able to speak in complete sentences Cardio Rate: regular rate Skin General skin exam: no rashes or lesions noted Neuro General: unable to assess gait (too weak to get out of bed) Cranial Nerves: PERRL and no nystagmus Extrem General: normal to inspection Psych Mental Status: mental status grossly normal
[2020-06-26 09:31] LABS: BE (Venous) 2 mmol/L (-2-3); HCO3 (Venous) 28 mmol/L (23-28); O2 Sat (Venous) 56 %; TCO2 (Venous) 27 mmol/L (24-29); pCO2 (Venous) 51 mmHg (41-51); pH (Venous) 7.35 (7.31-7.41); pO2 (Venous) 31 mmHg
[2020-06-26 09:32] LABS: Abs Immature Grans 0.02 10^3/uL (0.0-0.06); Absolute Basophil Count 0.03 10^3/uL (0.0-0.2); Absolute Eosinophil Count 0.14 10^3/uL (0.0-0.7); Absolute Lymphocyte Count 1.29 10^3/uL (1.2-3.4); Absolute Monocyte Count 0.41 10^3/uL (0.1-0.8); Absolute Neutrophil Count 4.27 10^3/uL (1.2-6.7); Basophils % 0.5; Eosinophils % 2.3; HCT 30.2 % (40.0-50.0); HGB 9.6 g/dL (13.5-17.5); Immature Grans % 0.3; Lymphocytes % 20.9; MCH 30.4 pg (27.0-33.0); MCHC 31.8 % (32.0-36.0); MCV 95.6 fL (80-95); MPV 9.7 fL (8.0-11.0); Monocytes % 6.7; Neutrophils % 69.3; Nucleated RBC 0 %; Platelet Count 287 10^3/uL (130-400); RBC 3.16 10^6/uL (4.36-5.78); RDW 12.6 % (11.8-14.1); RDW-SD 44.8 fL; WBC 6.16 10^3/uL (4.4-10.8)
--- NOTE | 2020-06-26 09:45 | DI.CT_ITS ---
EXAM: CT HEAD CERVICAL SPINE WO CLINICAL HISTORY: altered mental status, fall. TECHNIQUE: Imaging Protocol: Axial computed tomography images with coronal and sagittal reformatted images were created and reviewed COMPARISON: CT CT NECK WO from 05/19/2020 FINDINGS: CT Head: Ventricles and Extra axial spaces: Normal in size and morphology for the patient's age. Hemorrhage: None. Cerebral parenchyma: There are areas of decreased attenuation in the white matter consistent with chr onic microvascular ischemic disease. Old lacunar infarcts are seen in the basal ganglia. No acute t erritorial infarct is seen. Midline shift: None. Brainstem/Cerebellum: Normal. Calvarium: Normal. Visualized Paranasal sinuses/Mastoids: Clear. Soft Tissues: Unremarkable. CT Cervical Spine: Bones: No acute fracture or subluxation. Moderately degenerative changes are present throughout the c ervical spine. Soft Tissues: Unremarkable. Lung Apices: Centrilobular emphysematous changes are seen in the lungs IMPRESSION: 1. No acute intracranial process. 2. No acute fracture or subluxation in the cervical spine. 3. Findings were discussed with the emergency department on the date of the examination. RADIATION DOSE DELIVERED: 1,377.95mGy.cm Total DLP DATA REPOSITORY: All CT scans at this facility are submitted to the National Radiology Data Registry (NRDR) Dose Index Registry (DIR) with the [employer] (ACR). RADIATION OPTIMIZATION: All CT scans at this facility use at least one of these dose optimization te chniques: automated exposure control; mA and/or kV adjustment per patient size (includes targeted exa ms where dose is matched to clinical indication); or iterative reconstruction.
[2020-06-26 09:46] LABS: INR 1.2 (0.9-1.1); PTT Activated 31.5 sec (21.0-27.5)
[2020-06-26 09:49] LABS: ALT 15 U/L (16-63); AST 13 U/L (15-37); Albumin 2.5 g/dL (3.4-5.0); Alkaline Phosphatase 103 U/L (46-116); Anion Gap 6.3 mmol/L (3-11); BUN 26 mg/dL (7-18); Bilirubin, Direct 0.08 mg/dL (0.00-0.20); Bilirubin, Total 0.4 mg/dL (0.2-1.0); CO2 28.7 mmol/L (21.0-32.0); CREATININE 2.6 mg/dL (0.70-1.30); Calcium 8.6 mg/dL (8.5-10.1); Chloride 107 mmol/L (98-107); Creatine Kinase 34 U/L (39-308); Estimated GFR 24.18 (mL/min/1.73m2); Glucose 112 mg/dL (74-106); Lipase 54 U/L (73-393); Magnesium 2.4 mg/dL (1.8-2.4); Potassium 4.5 mmol/L (3.5-5.1); Sodium 142 mmol/L (136-145); Total Protein 6.1 g/dL (6.4-8.2)
[2020-06-26 09:50] LABS: Troponin I < 0.05 ng/mL (<0.06)
[2020-06-26 10:04] LABS: ETHANOL BLOOD < 3.0 mg/dL (<3)
--- NOTE | 2020-06-26 10:20 | DI.RAD_ITS ---
EXAM: XR CHEST 2V PA LATERAL CLINICAL HISTORY: ?aspiration TECHNIQUE: 2D digital imaging was performed. COMPARISON: CR XR PORTABLE CHEST AP from 12/22/2018 CR XR CHEST 2V PA LATERAL from 03/10/2019 CR RF BARIUM SWALLOW from 05/22/2020 FINDINGS: MEDIASTINUM: Normal. HEART: Normal. PULMONARY VASCULATURE: Normal. LUNGS: Clear. PLEURAL SPACE: No pleural effusion or pneumothorax. BONE:Within normal limits for the patient's age. OTHER FINDINGS:Normal. IMPRESSION: No acute pulmonary findings. DATA REPOSITORY: RADIATION DOSE DELIVERED:
[2020-06-26] MEDS: Normal Saline 1,000 ML 1000 ML IV (10:25)
[2020-06-26 10:35] LABS: Lactate 0.5 mmol/L (0.6-1.4)
[2020-06-26 10:39] LABS: Bilirubin Negative (Negative); Blood Small (Negative); Clarity Cloudy (Clear); Glucose Negative (Negative); Ketones Negative (Negative); Leukocyte Esterase Large (Negative); Nitrite Positive (Negative); Urobilinogen 0.2 EU/dL (Up TO 0.2); pH 6.5 (5-8)
[2020-06-26 10:46] LABS: C & S Indicated? Yes; WBC >50 HPF (0-5)
[2020-06-26] MEDS: cefTRIAXone 2 GM/50 ML BAG IVPB (10:59)
[2020-06-26 16:15] LABS: COVID-19 PCR Negative (Negative)
--- NOTE | 2020-06-27 09:05 | NUR.NOTE ---
Nursing Note: Called [facility] where pt resides, Nurse Marisol notified of negative results.
--- NOTE | 2020-06-29 09:36 | NUR.NOTE ---
Nursing Note: Preliminary results of the urine culture called to the ED this morning. Printed results given to [place]. Patient is at [facility]. I called, spoke with Marisol, and faxed the results to that facility. She is aware that this needs immediate follow up. Glenna Torres
--- NOTE | 2020-06-30 09:10 | NUR.NOTE ---
Nursing Note: Called [facility] and notified them that I was faxing the final urine culture result to them. Dr. Taylor is aware. Glenna Torres
== END 2020-06-26 18:07 | disposition skilled nursing facility (03) ==
PROVIDERS: Emergency Provider Emergency Medicine; PCP Family Medicine
DX: R40.4 Transient alteration of awareness (principal); N39.0 Urinary tract infection, site not specified; Z96.0 Presence of urogenital implants; I95.9 Hypotension, unspecified; Z03.818 Encounter for observation for suspected exposure to other biological agents ruled out
CPT/HCPCS: 36415; 36416; 80053; 82550; 82805; 82962; 83690; 87077; 93005; 96361; 96365; 99285; 70450; 71046; 72125; 80320; 81003; 81015; 82248; 83605; 83735; 84484; 85025; 85610; 85730; 87086; 87186; 93010

== ENCOUNTER → 2020-07-10 11:58 | Outpatient (BNVA) | payer MEDICARE, MEDICAID, SELFPAY | PROVIDERS: PCP Family Medicine; Visit Provider Psychiatry & Neurology Neurology | DX: R29.2 Abnormal reflex (principal); R25.1 Tremor, unspecified; F01.50 Vascular dementia, unspecified severity, without behavioral disturbance, psychotic disturbance, mood disturbance, and anxiety; E11.22 Type 2 diabetes mellitus with diabetic chronic kidney disease; I12.9 Hypertensive chronic kidney disease with stage 1 through stage 4 chronic kidney disease, or unspecified chronic kidney disease; N18.9 Chronic kidney disease, unspecified; Z79.4 Long term (current) use of insulin; Z79.899 Other long term (current) drug therapy | CPT/HCPCS: 99214 ==

== ENCOUNTER 2020-07-10 12:07 | Outpatient (REF) | payer MEDICARE, SELFPAY ==
[2020-07-12 15:47] LABS: COVID-19 RT-PCR Result Not Detected ((See Note))
== END 2020-07-10 12:08 | disposition home or self-care (01) ==
LOC: LBN 12:07
PROVIDERS: PCP Family Medicine; Visit Provider Nurse Practitioner Adult Health
DX: Z20.822 Contact with and (suspected) exposure to COVID-19 (principal)
CPT/HCPCS: U0003

== ENCOUNTER 2020-07-14 20:13 | Outpatient (REF) | payer MEDICARE, SELFPAY ==
[2020-07-14 15:39] LABS: Bilirubin Negative (Negative); Blood Small (Negative); Clarity Cloudy (Clear); Glucose Negative (Negative); Ketones Trace mg/dL (Negative); Leukocyte Esterase Small (Negative); Nitrite Positive (Negative); Specific Gravity 1.025 (1.005-1.025); Urobilinogen 0.2 EU/dL (Up TO 0.2)
[2020-07-14 15:54] LABS: Bacteria Many HPF (Negative); Crystals Negative HPF (Negative); Epithelial Cells Negative HPF (Negative); Mucus Negative (Negative); Other Cells Few Yeast (Negative); WBC >50 HPF (0-5)
[2020-07-14 15:55] LABS: C & S Indicated? Yes; Casts 0-2 Coarse Granular LPF (Negative)
== END 2020-07-14 20:14 | disposition home or self-care (01) ==
LOC: LBN 20:13
PROVIDERS: PCP Family Medicine; Visit Provider Nurse Practitioner Adult Health
DX: N39.0 Urinary tract infection, site not specified (principal)
CPT/HCPCS: 87077; 81003; 81015; 87086; 87186

== ENCOUNTER 2020-09-07 23:34 | Outpatient (REF) | payer MEDICARE, SELFPAY ==
[2020-09-08 00:37] LABS: Bilirubin Negative (Negative); Blood Trace-intact (Negative); Clarity Cloudy (Clear); Glucose Negative (Negative); Ketones Negative (Negative); Leukocyte Esterase Moderate (Negative); Nitrite Negative (Negative); Urobilinogen 0.2 EU/dL (Up TO 0.2); pH >= 9.0 (5-8)
[2020-09-08 00:39] LABS: Bacteria Packed HPF (Negative); C & S Indicated? C&S Done As Ordered
== END 2020-09-07 23:35 | disposition home or self-care (01) ==
LOC: LBN 23:34
PROVIDERS: PCP Family Medicine; Visit Provider Nurse Practitioner Family
DX: R35.0 Frequency of micturition (principal)
CPT/HCPCS: 87077; 81003; 81015; 87086; 87186

== ENCOUNTER 2020-09-21 17:33 | Outpatient (REF) | payer MEDICARE, MEDICAID, SELFPAY ==
[2020-09-21 18:04] LABS: Abs Immature Grans 0.01 10^3/uL (0.0-0.06); Absolute Basophil Count 0.02 10^3/uL (0.0-0.2); Absolute Eosinophil Count 0.15 10^3/uL (0.0-0.7); Absolute Lymphocyte Count 1.17 10^3/uL (1.2-3.4); Absolute Monocyte Count 0.35 10^3/uL (0.1-0.8); Absolute Neutrophil Count 2.47 10^3/uL (1.2-6.7); Basophils % 0.5; Eosinophils % 3.6; HCT 27.7 % (40.0-50.0); HGB 9.2 g/dL (13.5-17.5); Immature Grans % 0.2; Lymphocytes % 28.1; MCH 29.4 pg (27.0-33.0); MCHC 33.2 % (32.0-36.0); MCV 88.5 fL (80-95); MPV 10.4 fL (8.0-11.0); Monocytes % 8.4; Neutrophils % 59.2; Nucleated RBC 0 %; Platelet Count 196 10^3/uL (130-400); RBC 3.13 10^6/uL (4.36-5.78); RDW 13.7 % (11.8-14.1); RDW-SD 44.7 fL; WBC 4.17 10^3/uL (4.4-10.8)
[2020-09-21 18:21] LABS: ALT 15 U/L (16-63); AST 15 U/L (15-37); Albumin 2.8 g/dL (3.4-5.0); Alkaline Phosphatase 101 U/L (46-116); Amylase 38 U/L (25-115); Anion Gap 5.1 mmol/L (3-11); BUN 23 mg/dL (7-18); Bilirubin, Total 0.3 mg/dL (0.2-1.0); CO2 29.9 mmol/L (21.0-32.0); CREATININE 2.7 mg/dL (0.70-1.30); Calcium 8.2 mg/dL (8.5-10.1); Chloride 107 mmol/L (98-107); Estimated GFR 23.15 (mL/min/1.73m2); Glucose 63 mg/dL (74-106); Lipase 27 U/L (73-393); Potassium 3.9 mmol/L (3.5-5.1); Sodium 142 mmol/L (136-145); Total Protein 5.2 g/dL (6.4-8.2)
== END 2020-09-21 17:34 | disposition home or self-care (01) ==
LOC: LBN 17:33
PROVIDERS: PCP Family Medicine; Visit Provider Nurse Practitioner Family
DX: I10 Essential (primary) hypertension (principal); E11.9 Type 2 diabetes mellitus without complications; N18.9 Chronic kidney disease, unspecified; I69.322 Dysarthria following cerebral infarction
CPT/HCPCS: 80053; 83690; 82150; 85025

== ENCOUNTER 2020-10-07 08:10 | Day surgery (SDC) | payer MEDICARE, MEDICAID, SELFPAY ==
--- NOTE | 2020-10-04 14:35 | DSU.FORM ---
10/04/20 [facility] transport aware of pt arrival time of 0815 Saturday 10/07 for Cataract Surgery. Per [place] Bates patient may take his medications crushed in applesauce and can have his Glargine insulin . [facility] aware patient to be kept NPO but per anesthesia can take meds in applesauce only. Melida reports patient signs for himself. Melida RN will send MAR with last dose and time meds were given with patient.
--- NOTE | 2020-10-07 08:23 | ANES.PREOP_ITS ---
General Info Date of Service Date Performed: 10/07/20 Height: 5 ft 10 in Weight: 81.647 kg Body Mass Index (BMI): 25.8 Surgical Procedure: Operation Date: 10/07/20 09:55 Proposed Procedures Side Surgeon p Cataract Extraction with IOL Implant Right Reggie Antunez MD Meds Allergies and Home Medications Allergies Allergy/AdvReac Type Severity Reaction Status Date / Time No Known Allergies Allergy Unverified 10/07/20 08:36 Home Medication Medication Instructions Recorded multivitamin 1 tab PO DAILY 02/08/15 sertraline 100 mg PO DAILY 02/08/15 atorvastatin [Lipitor] 80 mg PO HS tab 10/18/17 albuterol sulfate [ProAir HFA] 2 puff INHALATION Q6H PRN 12/04/18 diltiazem HCl [DILT-XR] 240 mg PO DAILY 12/04/18 finasteride 5 mg PO DAILY 12/04/18 fluticasone propion-salmeterol 1 inh INHALATION BID 12/04/18 [Advair Diskus] melatonin 3 mg PO HS PRN 12/04/18 tamsulosin 0.8 mg PO DAILY #60 cap 12/06/18 magnesium oxide 400 mg PO DAILY 05/18/19 levetiracetam 750 mg tablet 750 mg PO BID 01/10/20 tramadol 50 mg tablet 25 mg PO Q8H PRN tab 01/10/20 acetaminophen 650 mg PO PRN PRN 05/19/20 oxybutynin chloride 5 mg PO BID 05/19/20 metoprolol succinate 12.5 mg PO DAILY 05/23/20 Xarelto 10 mg PO DAILY@1800 #0 tab 05/27/20 sucralfate 1 g PO AC & HS #120 tab 05/27/20 insulin aspart U-100 100 unit/mL See Rx Instructions SUBCUT .COMPLEX 07/10/20 (3 mL) subcutaneous pen insulin glargine 100 unit/mL (3 15 unit SUBCUT DAILY ml 07/10/20 mL) subcutaneous pen bisacodyl [Dulcolax (bisacodyl)] 10 mg NJ PRN PRN 10/04/20 dextrose [Glucose Gel] 15 g PO Q15M PRN 10/04/20 donepezil 5 mg PO DAILY 10/04/20 glucagon HCl [Glucagon (HCl) 1 mg IM PRN PRN 10/04/20 Emergency Kit] magnesium hydroxide [Milk of 400 mg PO DAILY PRN 10/04/20 Magnesia] ondansetron 4 mg PO Q8H PRN 10/04/20 sodium phosphates [Fleet Enema] 118 ml NJ PRN PRN 10/04/20 Current Visit Medications: Current Medications Generic Name Dose Route Start Last Admin Trade Name Freq PRN Reason Stop Dose Admin Acetaminophen 1,000 mg 10/07/20 06:00 Acetaminophen 500 Mg Tab PO Q4H PRN PRN Miscellaneous Medication 0 ml 10/07/20 06:00 Prednisolone 1%, Moxifloxacin 0.5%, Nepafenac 0.1% 5ml Btl OD DIRECTED [facility] Miscellaneous Medication 0 ml 10/07/20 06:00 Tropicam./Phenyleph. (1/2.5%) 5 Ml Btl OD DIRECTED [facility] Tetracaine HCl 0 ml 10/07/20 06:00 Tetracaine 0.5% 4 Ml Btl OD DIRECTED [facility] PFSH Active Problems Active Problems: Problem Status Onset Code Posterior subcapsular age-related cataract, right eye H25.041 Nuclear sclerotic cataract of right eye H25.11 Mental status alteration R41.82 Urinary retention R33.9 Diabetes type 2, controlled E11.9 Renal insufficiency N28.9 Bladder mass N32.89 Discharge planning issues Z02.9 Seizure disorder G40.909 UTI (urinary tract infection) N39.0 Spell of altered cognition R41.89 Vasovagal syncope R55 Acute exacerbation of chronic obstructive pulmonary disease (COPD) J44.1 Sepsis A41.9 Atrial fibrillation with rapid ventricular response I48.91 Acute kidney injury superimposed on chronic kidney disease N17.9, N18.9 DVT prophylaxis Z29.9 Discharge planning issues Z02.9 Acute respiratory failure with hypoxia J96.01 Syncope R55 Babinski reflex R29.2 Nausea R11.0 Hypertensive emergency I16.1 Paroxysmal atrial fibrillation I48.0 Spell of abnormal behavior R46.89 Dysarthria R47.1 Spells of trembling R25.1 Vascular dementia F01.50 Difficulty in swallowing R13.10 Vomiting R11.10 Urinary tract infection N39.0 Thrush B37.0 Dysphagia R13.10 Oropharyngeal candidiasis B37.0 DVT prophylaxis Z29.9 Discharge planning issues Z02.9 Weakness on left side of face R29.810 Palliative care patient Z51.5 DNR (do not resuscitate) Z66 CKD (chronic kidney disease) N18.9 COPD (chronic obstructive pulmonary disease) J44.9 Cerebrovascular disease I67.9 Medical History Medical History Cerebrovascular disease CVA CKD (chronic kidney disease) COPD (chronic obstructive pulmonary disease) Diabetes Diabetic gastroenteropathy GERD (gastroesophageal reflux disease) HTN (hypertension) Hyperlipidemia Indwelling urinary catheter present Seizure Urinary retention Surgical History Surgical History EGD - MAC (07/28/16) S/P insertion of penile implant S/P prostatectomy Tobacco Smoking/Tobacco Use Status: Former Tobacco Use Alcohol Alcohol Intake: never Substance Use Substance use: Never Substance use type: does not use Vital Signs and Lab Results Lab Results Blood Type / Crossmatch: No Data to Display Complete Blood Count: White Blood Count 4.17 10^3/uL (4.4-10.8) L 09/21/20 16:35 09/21/20 Red Blood Count 3.13 10^6/uL (4.36-5.78) L 09/21/20 16:35 09/21/20 Hemoglobin 9.2 g/dL (13.5-17.5) L 09/21/20 16:35 09/21/20 Hematocrit 27.7 % (40.0-50.0) L 09/21/20 16:35 09/21/20 Platelet Count 196 10^3/uL (130-400) 09/21/20 16:35 09/21/20 Complete Metabolic Panel: Sodium Level 142 mmol/L (136-145) 09/21/20 16:35 09/21/20 Potassium Level 3.9 mmol/L (3.5-5.1) 09/21/20 16:35 09/21/20 Chloride Level 107 mmol/L (98-107) 09/21/20 16:35 09/21/20 Carbon Dioxide Level 29.9 mmol/L (21.0-32.0) 09/21/20 16:35 09/21/20 Blood Urea Nitrogen 23 mg/dL (7-18) H 09/21/20 16:35 09/21/20 Creatinine 2.7 mg/dL (0.70-1.30) H 09/21/20 16:35 09/21/20 Calcium Level 8.2 mg/dL (8.5-10.1) L 09/21/20 16:35 09/21/20 Albumin 2.8 g/dL (3.4-5.0) L 09/21/20 16:35 09/21/20 Glucose Level 63 mg/dL (74-106) L 09/21/20 16:35 09/21/20 Liver Function Panel: Alanine Aminotransferase (ALT/SGPT) 15 U/L (16-63) L 09/21/20 16:35 09/21/20 Aspartate Amino Transf (AST/SGOT) 15 U/L (15-37) 09/21/20 16:35 09/21/20 Coagulation Panel: No Data to Display Cardiac Panel: No Data to Display Arterial Blood Gas: No Data to Display Venous Blood Gas: No Data to Display Pancreas Panel: Amylase Level 38 U/L (25-115) 09/21/20 16:35 09/21/20 Lipase 27 U/L (73-393) 09/21/20 16:35 09/21/20 Thyroid Panel: No Data to Display Infectious Disease: No Data to Display Blood Cultures: No Data to Display Toxicology Panel: No Data to Display Imaging and Studies Imaging and Studies EKG Summary: 06/26/2020 Conclusion Sinus bradycardia...rate< 60 Low voltage, extremity leads...all extremity leads <0.5mV I have reviewed and I agree with the emergency room physician???s ECG interpretation. Echocardiogram Summary: Date of study: 12/21/2018 Transthoracic Echocardiography M-mode, complete 2D, complete spectral Doppler, and color Doppler *STUDY CONCLUSIONS* Summary: 1. Left ventricle: The cavity size was normal. Systolic function was hyperdynamic. The estimated ejection fraction was 65-70%. Diastolic parameters were normal for age. There was no evidence of elevated ventricular filling pressure by Doppler parameters. 2. Right ventricle: The cavity size was mildly dilated. Systolic function was normal. 3. Atrial septum: No defect or patent foramen ovale was identified. 4. Pulmonary arteries: Pulmonary systolic pressure was in the range of 45mm Hg to 55mm Hg. 5. Inferior vena cava: The vessel was patent and normal in size. The respirophasic diameter changes were in the normal range (greater than or equal to 50%), consistent with normal central venous pressure. Anesthesia Assessment and Plan Anesthesia History Personal History: No History of Anesthesia Complications Family History: No Family History of Anesthesia Complications Exercise Tolerance Exercise Tolerance: Metabolic Equivalents<4 Pertinent Negatives Pertinent Negatives: No Symptoms of GERD, No Major Cardiovascular Symptoms or Complaints, No Major Pulmonary Symptoms or Complaints and No History of CVA/TIA Cardiac & Pulmonary Exam Cardiac Exam: Normal S1/S2 Heart Sounds Pulmonary Exam: Clear Bilateral Breath Sounds Airway Exam Known Difficult Airway: No Mallampati Class: 2 Mouth Opening: Normal (> 3cm) Thyromental Distance: Greater than 3 cm Neck Range of Motion: Full ROM Neck Circumference: Normal Teeth Condition: Normal Dentition (Appropriate wear to natural teeth) and Remov able Dentures/Plates Upper ASA Classification ASA Score: ASA 3 Emergency Case?: No NPO Status NPO Status: NPO Clears >2 hours, Solids >8 hours Anesthesia Plan Resuscitation Status: Full Code Anesthesia Technique: MAC Anesthesia Airway Planned: Natural Airway Monitors Used: Standard Monitors
[2020-10-07 08:37] VITALS: BP 81/47; PULSE 63; RESP 16; TEMP 36.2; O2SAT 93
[2020-10-07 08:51] VITALS: BMI 25.8
[2020-10-07] MEDS: Tropicam./Phenyleph. (1/2.5%) 5 ML BTL OD ×3 (08:58→09:12)
[2020-10-07] MEDS: Lactated Ringers 1,000 ML 30 ML IV (09:25)
[2020-10-07] MEDS: Tetracaine 0.5% 4 ML BTL OD (09:50)
[2020-10-07] MEDS: Duovisc Viscoelastic System EACH 1 EACH (09:52)
[2020-10-07] MEDS: Balanced Salt Soln.-PLUS 500 ML BAG (09:52)
[2020-10-07] MEDS: Lidocaine 2% Jelly 6 ML SYR (09:53)
[2020-10-07] MEDS: Lidocaine 1% Pres-Free 5 ML VIAL (09:53)
[2020-10-07] MEDS: Povidone-Iodine Ophth 30 ML BTL (09:55)
[2020-10-07] MEDS: Trypan Blue 0.06% 0.5 ML SYR (09:55)
--- NOTE | 2020-10-07 10:06 | W.ANESPOSTOP ---
Postoperative Evaluation Date, Time and Location Date Performed: 10/07/20 Time Performed: 10:23 Patient Location: Day Surgery Unit Vital Signs Most Recent Imported Vital Signs: Most Recent Vital Signs Temp Pulse Resp BP Pulse Ox 36.2 C L 63 16 81/47 L 93 10/07/20 08:37 10/07/20 08:37 10/07/20 08:37 10/07/20 08:37 10/07/20 08:37 Most Recent Manually Entered Vital Signs: Adult Blood Pressure: 121/61 Heart Rate: 62 Respirations: 14 Oxygen Saturation (%): 100 Temperature (C): 36.7 C Pain Score (0-10 Scale): 0 Pain Score Most Recent Pain Score: Most Recent Pain Score Pain Level 0 10/07/20 08:37 Assessment Mental Status: Awake (Alert & Oriented to Patient Baseline) Airway and Respiratory Function: Patent airway with normal (patient baseline) respiratory exam Cardiovascular Function: Hemodynamically Stable Hydration Status: Adequately Hydrated Nausea & Vomiting: No Nausea or Vomiting Pain: Pt. Denies Any Pain Peripheral Nerve Block: Other (Local by Dr. Antunez)
--- NOTE | 2020-10-07 10:23 | PDOC.DSDIS_ITS ---
Discharge Plan Disposition Patient Disposition: HOME Condition: Good Discharge Details Reason For Visit: Cataract Attending Provider: Reggie Antunez Primary Care Provider: Isak Magana [place] Meds and New Rx's Prescriptions: No Action magnesium oxide 400 mg magnesium tablet 400 mg PO DAILY RF: 0 Lantus Solostar U-100 Insulin 100 unit/mL (3 mL) insulin pen 15 unit subcut DAILY RF: 0 levetiracetam 750 mg tablet 750 mg PO BID RF: 0 tramadol 50 mg tablet 25 mg PO Q8H PRNRF: 0 multivitamin 1 EACH tablet 1 tab PO DAILY RF: 0 sertraline 100 MG tablet 100 mg PO DAILY RF: 0 atorvastatin [Lipitor] 40 MG tablet 80 mg PO HS RF: 0 fluticasone propion-salmeterol [Advair Diskus] 250-50 mcg/dose Blister With Device 1 inh INHALATION BID RF: 0 diltiazem HCl [DILT-XR] 240 mg Capsule,Ext.Rel 24h Degradable 240 mg PO DAILY RF: 0 melatonin 3 mg Tablet 3 mg PO HS PRNRF: 0 albuterol sulfate [ProAir HFA] 90 mcg/actuation Hfa Aerosol Inhaler 2 puff INHALATION Q6H PRNRF: 0 finasteride 5 mg Tablet 5 mg PO DAILY RF: 0 tamsulosin 0.4 MG capsule 0.8 mg PO DAILY Qty: 60 RF: 0 oxybutynin chloride 5 mg tablet 5 mg PO BID RF: 0 acetaminophen 325 mg tablet 650 mg PO PRN PRN (Reason: Pain) RF: 0 metoprolol succinate 25 mg Tablet Extended Release 24 Hr 12.5 mg PO DAILY RF: 0 sucralfate 1 gram Tablet 1 g PO AC & HS Qty: 120 RF: 0 Xarelto 15 mg tablet 10 mg PO DAILY@1800 Qty: 0 RF: 0 insulin aspart U-100 [Novolog Flexpen U-100 Insulin] 100 unit/mL (3 mL) insulin pen See Rx Instructions subcut .COMPLEX RF: 0 donepezil 5 mg Tablet 5 mg PO DAILY RF: 0 dextrose [Glucose Gel] 40 % Gel 15 g PO Q15M PRNRF: 0 magnesium hydroxide [Milk of Magnesia] 400 mg/5 mL Suspension 400 mg PO DAILY PRNRF: 0 bisacodyl [Dulcolax (bisacodyl)] 10 mg Suppository 10 mg HI PRN PRNRF: 0 Fleet Enema 19-7 gram/118 mL Enema 118 ml HI PRN PRNRF: 0 Glucagon (HCl) Emergency Kit 1 mg Recon Soln 1 mg IM PRN PRNRF: 0 ondansetron 4 mg Tablet,Disintegrating 4 mg PO Q8H PRNRF: 0 Discharge Instructions Stand Alone Forms: Post-op Topical Cataract, Press Ganey (DSU) Discharge Orders Discharge Orders: Discharge Order (Routine); Ordered 10/07/20 Ordered By: Reggie Antunez DS: Diagnosis Discharge Diagnosis (1) Posterior subcapsular age-related cataract, right eye: Status: Resolved (2) Nuclear sclerotic cataract of right eye: Status: Resolved
[2020-10-07 10:24] VITALS: BP 121/61; PULSE 62; RESP 14; TEMPC 36.7; O2SAT 100
--- NOTE | 2020-10-07 10:24 | ROE_ITS ---
Date of service: 10/07/20 Time of Service: 10:24 Operative Note Operative Note DATE OF PROCEDURE: 10/07/20 PRE-OP DIAGNOSIS: Nuclear/posterior subcapsular cataract, right eye Poorly dilating pupil, right eye Poor red reflex, right eye secondary to cataract POST-OP DIAGNOSIS: same PROCEDURE: Cataract extraction using phacoemulsification with intraocular lens implant, right eye, with pupillary dilation using Malyugin Ring and capsular staining using Vision Blue SURGEON: Reggie Antunez Refer to Anesthesia Record ESTIMATED BLOOD LOSS: 0 PATHOLOGY: none sent COMPLICATIONS: None Patient was transported to: same day Patient's condition: stable Implants: [employer] / [employer] Tecnis [id number] Indications: Progressive decreased vision due to cataract, right eye Procedure Description: CATARACT SURGERY OPERATIVE REPORT PREOPERATIVE DIAGNOSIS: 1. Nuclear/posterior subcapsular cataract, right eye 2. Poorly dilating pupil, right eye 3. Poor red reflex, right eye POSTOPERATIVE DIAGNOSIS: Same OPERATION: 1. Cataract extraction using phacoemulsification with posterior chamber intraocular lens implant, right eye. 2. Pupillary dilation and iris stabilization using Malyugin Ring 3. Capsular staining with VIsion Blue IOL: IOL Business Services Clerk/Model: [employer] / GIA Tecnis ZCB00 IOL Power: + 17.5 diopters IOL Serial Number: [id number] Optic Diameter: 6.0mm Haptic/Overall Diameter: 13.0mm PHACO INFO: Fabien [employer]urion Vision System with OZil and Active Fluidics Cumulative Dispersed Energy (CDE): 11.9 seconds SURGEON: Reggie Antunez MD, FRANCI ANESTHESIA: Monitored Anesthesia Care (MAC), with local sub-tenon's anesthetic infiltration COMPLICATIONS: None SPECIMENS: None INDICATIONS FOR PROCEDURE: The patient is a 74-year-old gentleman with history of myopia who has developed a significant nuclear and posterior subcapsular cataract of the right eye. He is significantly symptomatic that he desires cataract surgery and attempt to improve and maximize his vision. He desires to remain myopic postoperatively so he can read comfortably without glasses. The option of cataract surgery was offered to the patient and he wished to proceed. Postoperative refractive target is -3.0 diopters. PROCEDURE: The correct surgical eye was identified and marked as the right eye and the pupil was dilated in the preoperative area using mydriatics and cycloplegics. The dilated pupil size was 4.0 mm. He elected to proceed without oral sedation. The patient was brought to the operating room where cardiopulmonary monitoring was instituted and surgical time-out was performed, confirming the correct operative eye and IOL power. Topical anesthesia was administered and ophthalmic povidone-iodine 5% was instilled into the conjunctival fornices. Lidocaine gel was applied to the cornea and the alexandra-ocular area was prepped with Betadine 10% solution and draped in the usual sterile fashion for intraocular surgery, including an aperture drape. A Tegaderm transparent film dressing was cut in half and used to cover the lashes and lid margins. Care was taken to sequester the lashes and lid margins under the Tegaderm dressing. A lid speculum was placed between the lids of the operative eye and the Michaela-Jasbir operating microscope was maneuvered into position. Kaiser scissors were then used to make a conjunctival buttonhole approximately 6mm posterior to the limbus in the inferonasal quadrant. Blunt dissection was carried out to expose bare sclera, and a blunt-tipped sub-tenon?s anesthesia cannula was introduced and passed posteriorly along the globe where non- preserved plain lidocaine was injected into posterior sub-Tenon?s space. A sideport knife was used to make a paracentesis port inferiortemporally. Intraocular phenylephrine/lidocaine was injected into the anterior chamber. There was essentially no improvement in dilation with intraocular phenylephrine. Provisc was then injected into the anterior chamber, and a 2.4 mm keratome knife was used to create a 3 plane near clear corneal incision extending 2.0 mm into clear cornea superior temporally. A 7.0 mm Malyugin ring was then inserted into the pupillary space and engaged with the Kuglen hook. The irrigati on/aspiration handpiece was then used to remove the Provisc. Air was then injected into anterior chamber, followed by Vision Blue, which was painted over the anterior capsule and then irrigated out with BSS. The anterior chamber was then filled with viscoelastic. A flap was raised on the anterior capsule and capsulorhexis forceps were used to complete a continuous curvilinear capsulorhexis of 5.5 mm. The anterior chamber was noted to be quite deep with loose zonules. The anterior capsule was very thin. Balanced salt solution was then used to perform cortical cleaving hydrodissection and nuclear hydrodelineation until the lens could be freely rotated within the capsular bag. The lens nucleus was then disassembled and removed within the capsular bag and iris plane using phacoemulsification. Residual cortical material was removed using the 45-degree angled silicone I/A tip with 0.3mm port. The posterior capsule was carefully polished to remove as much residual lens epithelial cells as safely possible. The capsular bag was then inflated and the anterior chamber deepened with viscoelastic. The lens implant described above was inserted into the capsular bag using the GIA [place] Injector. A Kuglen hook was used to dial the IOL into position. The Malyugin Ring was removed in the reverse order of its insertion. Residual viscoelastic was then removed first from posterior to the IOL, then from the anterior chamber using the I/A handpiece. The lens implant was noted to center nicely within the capsular bag. The incisions were stromally hydrated, and the anterior chamber was reformed using BSS. Then 0.5cc of moxifloxacin 1.0mg/ml were injected into the capsular bag and anterior chamber. The incisions were checked with a Weck spear and found to be secure. Several drops of ophthalmic povidone-iodine 5% were then applied to the eye followed by two drops of Imprimis combination prednisoone/moxifloxacin/nepafenac solution. The drapes were removed and a clear plastic protective eye shield was placed over the eye. The patient was then returned to Same Day Surgery in stable condition.
[2020-10-07 10:33] VITALS: BP 121/61; PULSE 62; RESP 14; TEMP 36.7; O2SAT 100
== END 2020-10-07 11:00 | disposition home or self-care (01) ==
PROVIDERS: PCP Family Medicine; Visit Provider Ophthalmology
PROC: (CPT 66982; principal; 2020-10-07 09:45)
DX: H25.041 Posterior subcapsular polar age-related cataract, right eye (principal); H57.03 Miosis; J44.9 Chronic obstructive pulmonary disease, unspecified; E11.22 Type 2 diabetes mellitus with diabetic chronic kidney disease; I12.9 Hypertensive chronic kidney disease with stage 1 through stage 4 chronic kidney disease, or unspecified chronic kidney disease; N18.9 Chronic kidney disease, unspecified
CPT/HCPCS: 66982; 99281; V2632; 99282

== ENCOUNTER 2020-10-07 11:01 | Emergency (ER) | payer MEDICARE, MEDICAID, SELFPAY ==
[2020-10-07 11:07] VITALS: BP 112/34; PULSE 61; RESP 18; TEMP 36.6; O2SAT 97
--- NOTE | 2020-10-07 11:41 | W.ED.GENAD ---
Discharge Plan Disposition Patient Disposition: HOME Condition: Good Discharge Details Clinical Impression: Whitt catheter problem Primary Care Provider: Isak Magana ED Provider: Dulce Roach Home Meds and New Rx's Prescriptions: No Action magnesium oxide 400 mg magnesium tablet 400 mg PO DAILY RF: 0 Lantus Solostar U-100 Insulin 100 unit/mL (3 mL) insulin pen 15 unit subcut DAILY RF: 0 levetiracetam 750 mg tablet 750 mg PO BID RF: 0 tramadol 50 mg tablet 25 mg PO Q8H PRNRF: 0 multivitamin 1 EACH tablet 1 tab PO DAILY RF: 0 sertraline 100 MG tablet 100 mg PO DAILY RF: 0 atorvastatin [Lipitor] 40 MG tablet 80 mg PO HS RF: 0 fluticasone propion-salmeterol [Advair Diskus] 250-50 mcg/dose Blister With Device 1 inh INHALATION BID RF: 0 diltiazem HCl [DILT-XR] 240 mg Capsule,Ext.Rel 24h Degradable 240 mg PO DAILY RF: 0 melatonin 3 mg Tablet 3 mg PO HS PRNRF: 0 albuterol sulfate [ProAir HFA] 90 mcg/actuation Hfa Aerosol Inhaler 2 puff INHALATION Q6H PRNRF: 0 finasteride 5 mg Tablet 5 mg PO DAILY RF: 0 tamsulosin 0.4 MG capsule 0.8 mg PO DAILY Qty: 60 RF: 0 oxybutynin chloride 5 mg tablet 5 mg PO BID RF: 0 acetaminophen 325 mg tablet 650 mg PO PRN PRN (Reason: Pain) RF: 0 metoprolol succinate 25 mg Tablet Extended Release 24 Hr 12.5 mg PO DAILY RF: 0 sucralfate 1 gram Tablet 1 g PO AC & HS Qty: 120 RF: 0 Xarelto 15 mg tablet 10 mg PO DAILY@1800 Qty: 0 RF: 0 insulin aspart U-100 [Novolog Flexpen U-100 Insulin] 100 unit/mL (3 mL) insulin pen See Rx Instructions subcut .COMPLEX RF: 0 donepezil 5 mg Tablet 5 mg PO DAILY RF: 0 dextrose [Glucose Gel] 40 % Gel 15 g PO Q15M PRNRF: 0 magnesium hydroxide [Milk of Magnesia] 400 mg/5 mL Suspension 400 mg PO DAILY PRNRF: 0 bisacodyl [Dulcolax (bisacodyl)] 10 mg Suppository 10 mg VT PRN PRNRF: 0 Fleet Enema 19-7 gram/118 mL Enema 118 ml VT PRN PRNRF: 0 Glucagon (HCl) Emergency Kit 1 mg Recon Soln 1 mg IM PRN PRNRF: 0 ondansetron 4 mg Tablet,Disintegrating 4 mg PO Q8H PRNRF: 0 Discharge Instructions Additional Instructions: Please follow-up with Dr. Cooney, give the office a call tomorrow if you do not hear from them Please return earlier should you have new or worsening complaints with any fever, chills, weakness Pulse Referrals: Harinder Cooney MD [ [facility] STAFF [facility]YSICIAN] - Medical Decision Making Patient is alert and oriented, he does have a notable ulceration with a 4 inch because of his chronic indwelling Whitt catheter, this was discussed with Dr. Cooney who will see patient outpatient Whitt catheter is draining well, patient is otherwise asymptomatic, stable vitals per patient Discharged home in stable condition, placed on urology follow-up with No evidence of Kyle's gangrene Differential Diagnosis Differential Diagnosis: Whitt catheter malfunction, cellulitis, fouriner's gangrene, indwelling Medical Records Medical records reviewed: Yes I reviewed the patient's medical records. Lab Data Lab results reviewed: Yes I reviewed the patient's lab results. HPI General Mode of arrival: ambulatory. Date/Time Provider Initiated Documentation: 10/07/20 11:21. Limitations to Documentation: no limitations. Information obtained by: patient. HPI Narrative: This 74-year-old male with history of diabetes, dementia, seizures, bladder mass, indwelling Whitt catheter presents with reports of bleeding around the Whitt catheter. Patient is unsure as to when his Whitt was last replaced. He states he has noticed blood this past several days. He states the area is tender. He denies any fever or chills. He does have cataract surgery today. Patient decided to come into the emergency room for evaluation as he had cataract surgery this morning. Related Data Home Medications Medication Instructions Recorded Confirmed multivitamin 1 tab PO DAILY 02/08/15 10/07/20 sertraline 100 mg PO DAILY 02/08/15 10/07/20 atorvastatin [Lipitor] 80 mg PO HS tab 10/18/17 10/07/20 albuterol sulfate [ProAir HFA] 2 puff INHALATION Q6H PRN 08/11/19 06/14/21 diltiazem HCl [DILT-XR] 240 mg PO DAILY 12/04/18 10/07/20 finasteride 5 mg PO DAILY 12/04/18 10/07/20 fluticasone propion-salmeterol 1 inh INHALATION BID 12/04/18 10/07/20 [Advair Diskus] melatonin 3 mg PO HS PRN 12/04/18 10/07/20 tamsulosin 0.8 mg PO DAILY #60 cap 12/06/18 10/07/20 magnesium oxide 400 mg PO DAILY 05/18/19 10/07/20 levetiracetam 750 mg tablet 750 mg PO BID 01/10/20 10/07/20 tramadol 50 mg tablet 25 mg PO Q8H PRN tab 01/10/20 10/07/20 acetaminophen 650 mg PO PRN PRN 05/19/20 10/07/20 oxybutynin chloride 5 mg PO BID 05/19/20 10/07/20 metoprolol succinate 12.5 mg PO DAILY 05/23/20 10/07/20 Xarelto 10 mg PO DAILY@1800 #0 tab 05/27/20 10/07/20 sucralfate 1 g PO AC & HS #120 tab 05/27/20 10/07/20 insulin aspart U-100 100 unit/mL See Rx Instructions SUBCUT .COMPLEX 07/10/20 10/07/20 (3 mL) subcutaneous pen insulin glargine 100 unit/mL (3 15 unit SUBCUT DAILY ml 07/10/20 10/07/20 mL) subcutaneous pen bisacodyl [Dulcolax (bisacodyl)] 10 mg VT PRN PRN 10/04/20 10/07/20 dextrose [Glucose Gel] 15 g PO Q15M PRN 10/04/20 10/07/20 donepezil 5 mg PO DAILY 10/04/20 10/07/20 glucagon HCl [Glucagon (HCl) 1 mg IM PRN PRN 10/04/20 10/07/20 Emergency Kit] magnesium hydroxide [Milk of 400 mg PO DAILY PRN 10/04/20 10/07/20 Magnesia] ondansetron 4 mg PO Q8H PRN 10/04/20 10/07/20 sodium phosphates [Fleet Enema] 118 ml VT PRN PRN 10/04/20 10/07/20 Previous Rx's Medication Instructions Recorded atorvastatin [Lipitor] 80 mg PO HS tab 10/18/17 tamsulosin 0.8 mg PO DAILY #60 cap 12/06/18 Xarelto 10 mg PO DAILY@1800 #0 tab 05/27/20 sucralfate 1 g PO AC & HS #120 tab 05/27/20 Allergies Allergy/AdvReac Type Severity Reaction Status Date / Time No Known Allergies Allergy Unverified 10/07/20 11:11 General Stated Complaint: Urinary KAELA: 4 Review of Systems Narrative: Review of systems negative x7 aside from where indicated in HPI PFSH Medical History (Updated 10/07/20 @ 12:27 by NEWTON Goodrich) Cerebrovascular disease CVA CKD (chronic kidney disease) COPD (chronic obstructive pulmonary disease) Diabetes Diabetic gastroenteropathy GERD (gastroesophageal reflux disease) HTN (hypertension) Hyperlipidemia Indwelling urinary catheter present Seizure Urinary retention Surgical History (Updated 10/07/20 @ 10:23 by Reggie Antunez MD) EGD - MAC (07/28/16) S/P insertion of penile implant S/P prostatectomy Social History Smoking/Tobacco Use Status: Former Tobacco Use Smoking risk assessment performed?: Yes Alcohol Intake: never Drug use: Never Substance use type: does not use Household members: children Housing: group home 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 What is your relationship status?: Panel score (0-1 are the most socially isolated patients): 0 Seatbelt use: never Do you feel safe at home: Yes Do you feel safe in your relationship?: Yes Exam Const Orientation: alert and oriented x3 Resp Effort & Inspection: normal respiratory effort Cardio Rate: regular rate Other: Whitt catheter draining appropriately, ulceration noted to the glans from indwelling Whitt catheter, scant bleeding noted, no evidence of cellulitis or significant erythema to the affected area, foreskin intact, no phimosis or paraphimosis, no evidence of fouriners gangrene Neuro General: patient alert Other: Alert and at baseline Course Vital Signs Vital signs: Vital Signs Temperature 36.6 C 10/07/20 11:07 Pulse 61 10/07/20 11:07 Respiratory Rate 18 10/07/20 11:07 Blood Pressure 112/34 L 10/07/20 11:07 Pulse Oximetry 97 10/07/20 11:07 Temperature 36.6 C 10/07/20 11:07 Temperature Source Temporal Artery Scan 10/07/20 11:07 Pulse 61 10/07/20 11:07 Respiratory Rate 18 10/07/20 11:07 Respiratory Effort Non-Labored 10/07/20 11:12 Blood Pressure 112/34 L 10/07/20 11:07 Blood Pressure Position Sitting 10/07/20 11:07 Pulse Oximetry 97 10/07/20 11:07 Oxygen Delivery Method Room Air 10/07/20 11:07 Oxygen Flow Rate 0 10/07/20 11:07
[2020-10-07 12:45] VITALS: BP 137/55; PULSE 54; RESP 18; TEMP 36.5; O2SAT 100
== END 2020-10-07 13:02 | disposition home or self-care (01) ==
PROVIDERS: Emergency Provider Physician Assistant; PCP Family Medicine
DX: T83.511A Infection and inflammatory reaction due to indwelling urethral catheter, initial encounter (principal); N48.5 Ulcer of penis; Y84.6 Urinary catheterization as the cause of abnormal reaction of the patient, or of later complication, without mention of misadventure at the time of the procedure
CPT/HCPCS: 99281; 99282

== ENCOUNTER 2020-10-21 09:03 | Day surgery (SDC) | payer MEDICARE, MEDICAID, SELFPAY ==
--- NOTE | 2020-10-21 09:26 | NUR.NOTE ---
Arrived fatigued and pale. Decreased BP 81/46 in wheel chair. 106/53 after being placed in stretcher. HR 81. O2 sats. 96%. Weak on standing and transferring to stretcher. Blood sugar 96. Anesthesia made aware. Incontinent of stool with stool noted in fingers of right hand and under nails. Whitt catheter patent and draining pale clear yellow urine. Whitt bag leaking and replaced. Nursing Note:
--- NOTE | 2020-10-21 09:30 | RT.EKG_ITS ---
APPROVED REPORT Exam: Resting ECG Reason for Exam: hypotension Patient Location: O HR:60 bpm ECG Measurements Heart Rate 60 AXIS IN 170 P 73 QRSd 79 QRS 2 QT 423 T 54 QTc 423 Conclusion Sinus rhythm...normal P axis, V-rate 60- 99 Low voltage, extremity leads...all extremity leads <0.5mV Consider anteroseptal infarct...Q >30mS, dimin R, V1-V2
--- NOTE | 2020-10-21 10:01 | W.ANESPRE ---
General Info Date of Service Date Performed: 10/21/20 Height: 5 ft 11 in Weight: 76 kg (Previous Weight) Body Mass Index (BMI): 23.3 Surgical Procedure: Operation Date: 10/21/20 10:40 Proposed Procedures Side Surgeon p Cataract Extraction with IOL Implant Left Reggie Antunez MD Meds Allergies and Home Medications Allergies Allergy/AdvReac Type Severity Reaction Status Date / Time No Known Allergies Allergy Unverified 10/07/20 11:11 Home Medication Medication Instructions Recorded multivitamin 1 tab PO DAILY 02/08/15 sertraline 100 mg PO DAILY 02/08/15 atorvastatin [Lipitor] 80 mg PO HS tab 10/18/17 albuterol sulfate [ProAir HFA] 2 puff INHALATION Q6H PRN 12/04/18 diltiazem HCl [DILT-XR] 240 mg PO DAILY 12/04/18 finasteride 5 mg PO DAILY 12/04/18 fluticasone propion-salmeterol 1 inh INHALATION BID 12/04/18 [Advair Diskus] melatonin 3 mg PO HS PRN 12/04/18 tamsulosin 0.8 mg PO DAILY #60 cap 12/06/18 magnesium oxide 400 mg PO DAILY 05/18/19 levetiracetam 750 mg tablet 750 mg PO BID 01/10/20 tramadol 50 mg tablet 25 mg PO Q8H PRN tab 01/10/20 acetaminophen 650 mg PO PRN PRN 05/19/20 oxybutynin chloride 5 mg PO BID 05/19/20 metoprolol succinate 12.5 mg PO DAILY 05/23/20 Xarelto 10 mg PO DAILY@1800 #0 tab 05/27/20 sucralfate 1 g PO AC & HS #120 tab 05/27/20 insulin aspart U-100 100 unit/mL See Rx Instructions SUBCUT .COMPLEX 07/10/20 (3 mL) subcutaneous pen insulin glargine 100 unit/mL (3 15 unit SUBCUT DAILY ml 07/10/20 mL) subcutaneous pen bisacodyl [Dulcolax (bisacodyl)] 10 mg CA PRN PRN 10/04/20 dextrose [Glucose Gel] 15 g PO Q15M PRN 10/04/20 donepezil 5 mg PO DAILY 10/04/20 glucagon HCl [Glucagon (HCl) 1 mg IM PRN PRN 10/04/20 Emergency Kit] magnesium hydroxide [Milk of 400 mg PO DAILY PRN 10/04/20 Magnesia] ondansetron 4 mg PO Q8H PRN 10/04/20 sodium phosphates [Fleet Enema] 118 ml CA PRN PRN 10/04/20 Current Visit Medications: Current Medications Generic Name Dose Route Start Last Admin Trade Name Freq PRN Reason Stop Dose Admin Acetaminophen 1,000 mg 10/21/20 06:00 Acetaminophen 500 Mg Tab PO Q4H PRN PRN Ringer's Solution 1,000 mls @ 30 mls/hr 10/21/20 09:45 IV INFUSION LASHAWN Miscellaneous Medication 0 ml 10/21/20 06:00 Prednisolone 1%, Moxifloxacin 0.5%, Nepafenac 0.1% 5ml Btl OS DIRECTED LASHAWN Miscellaneous Medication 0 ml 10/21/20 06:00 Tropicam./Phenyleph. (1/2.5%) 5 Ml Btl OS DIRECTED LASHAWN Tetracaine HCl 0 ml 10/21/20 06:00 Tetracaine 0.5% 4 Ml Btl OS DIRECTED [facility] PFSH Active Problems Active Problems: Problem Status Onset Code Posterior subcapsular age-related cataract of left eye H25.042 Nuclear sclerotic cataract of left eye H25.12 Whitt catheter problem T83.9XXA Posterior subcapsular age-related cataract, right eye H25.041 Nuclear sclerotic cataract of right eye H25.11 Mental status alteration R41.82 Urinary retention R33.9 Diabetes type 2, controlled E11.9 Renal insufficiency N28.9 Bladder mass N32.89 Discharge planning issues Z02.9 Seizure disorder G40.909 UTI (urinary tract infection) N39.0 Spell of altered cognition R41.89 Vasovagal syncope R55 Acute exacerbation of chronic obstructive pulmonary disease (COPD) J44.1 Sepsis A41.9 Atrial fibrillation with rapid ventricular response I48.91 Acute kidney injury superimposed on chronic kidney disease N17.9, N18.9 DVT prophylaxis Z29.9 Discharge planning issues Z02.9 Acute respiratory failure with hypoxia J96.01 Syncope R55 Babinski reflex R29.2 Nausea R11.0 Hypertensive emergency I16.1 Paroxysmal atrial fibrillation I48.0 Spell of abnormal behavior R46.89 Dysarthria R47.1 Spells of trembling R25.1 Vascular dementia F01.50 Difficulty in swallowing R13.10 Vomiting R11.10 Urinary tract infection N39.0 Thrush B37.0 Dysphagia R13.10 Oropharyngeal candidiasis B37.0 DVT prophylaxis Z29.9 Discharge planning issues Z02.9 Weakness on left side of face R29.810 Palliative care patient Z51.5 DNR (do not resuscitate) Z66 CKD (chronic kidney disease) N18.9 COPD (chronic obstructive pulmonary disease) J44.9 Cerebrovascular disease I67.9 Medical History Medical History (Updated 10/20/20 @ 08:12 by Reggie Antunez MD) Cerebrovascular disease CVA CKD (chronic kidney disease) COPD (chronic obstructive pulmonary disease) Diabetes Diabetic gastroenteropathy GERD (gastroesophageal reflux disease) HTN (hypertension) Hyperlipidemia Indwelling urinary catheter present Seizure Urinary retention Surgical History Surgical History (Updated 10/07/20 @ 10:23 by Reggie Antunez MD) EGD - MAC (07/28/16) S/P insertion of penile implant S/P prostatectomy Tobacco Smoking/Tobacco Use Status: Former Tobacco Use Alcohol Alcohol Intake: never Substance Use Substance use: Never Substance use type: does not use Vital Signs and Lab Results Point of Care Results Point of Care Results: Finger Stick Blood Glucose 96 10/21/20 09:21 Lab Results Result Diagrams: 10/21/20 Unknown 10/21/20 09:43 Blood Type / Crossmatch: No Data to Display Complete Blood Count: White Blood Count 4.17 10^3/uL (4.4-10.8) L 09/21/20 16:35 09/21/20 Red Blood Count 3.13 10^6/uL (4.36-5.78) L 09/21/20 16:35 09/21/20 Hemoglobin 9.2 g/dL (13.5-17.5) L 09/21/20 16:35 09/21/20 Hematocrit 27.7 % (40.0-50.0) L 09/21/20 16:35 09/21/20 Platelet Count 196 10^3/uL (130-400) 09/21/20 16:35 09/21/20 Complete Metabolic Panel: Sodium Level 142 mmol/L (136-145) 09/21/20 16:35 09/21/20 Potassium Level 3.9 mmol/L (3.5-5.1) 09/21/20 16:35 09/21/20 Chloride Level 107 mmol/L (98-107) 09/21/20 16:35 09/21/20 Carbon Dioxide Level 29.9 mmol/L (21.0-32.0) 09/21/20 16:35 09/21/20 Blood Urea Nitrogen 23 mg/dL (7-18) H 09/21/20 16:35 09/21/20 Creatinine 2.7 mg/dL (0.70-1.30) H 09/21/20 16:35 09/21/20 Estimated GFR/1.73 m2 23.15 (mL/min/1.73m2) 09/21/20 16:35 09/21/20 Calcium Level 8.2 mg/dL (8.5-10.1) L 09/21/20 16:35 09/21/20 Albumin 2.8 g/dL (3.4-5.0) L 09/21/20 16:35 09/21/20 Glucose Level 63 mg/dL (74-106) L 09/21/20 16:35 09/21/20 Liver Function Panel: Alanine Aminotransferase (ALT/SGPT) 15 U/L (16-63) L 09/21/20 16:35 09/21/20 Aspartate Amino Transf (AST/SGOT) 15 U/L (15-37) 09/21/20 16:35 09/21/20 Coagulation Panel: No Data to Display Cardiac Panel: No Data to Display Arterial Blood Gas: No Data to Display Venous Blood Gas: No Data to Display Pancreas Panel: Amylase Level 38 U/L (25-115) 09/21/20 16:35 09/21/20 Lipase 27 U/L (73-393) 09/21/20 16:35 09/21/20 Thyroid Panel: No Data to Display Infectious Disease: No Data to Display Blood Cultures: No Data to Display Toxicology Panel: No Data to Display Imaging and Studies Imaging and Studies EKG Summary: 06/26/2020 Conclusion Sinus bradycardia...rate< 60 Low voltage, extremity leads...all extremity leads <0.5mV I have reviewed and I agree with the emergency room physician???s ECG interpretation. Echocardiogram Summary: Date of study: 12/21/2018 Transthoracic Echocardiography M-mode, complete 2D, complete spectral Doppler, and color Doppler *STUDY CONCLUSIONS* Summary: 1. Left ventricle: The cavity size was normal. Systolic function was hyperdynamic. The estimated ejection fraction was 65-70%. Diastolic parameters were normal for age. There was no evidence of elevated ventricular filling pressure by Doppler parameters. 2. Right ventricle: The cavity size was mildly dilated. Systolic function was normal. 3. Atrial septum: No defect or patent foramen ovale was identified. 4. Pulmonary arteries: Pulmonary systolic pressure was in the range of 45mm Hg to 55mm Hg. 5. Inferior vena cava: The vessel was patent and normal in size. The respirophasic diameter changes were in the normal range (greater than or equal to 50%), consistent with normal central venous pressure. Anesthesia Assessment and Plan Anesthesia History Personal History: No History of Anesthesia Complications Family History: No Family History of Anesthesia Complications Exercise Tolerance Exercise Tolerance: Metabolic Equivalents<4 Pertinent Negatives Pertinent Negatives: No Symptoms of GERD Cardiac & Pulmonary Exam Cardiac Exam: Normal S1/S2 Heart Sounds Pulmonary Exam: Clear Bilateral Breath Sounds Airway Exam Known Difficult Airway: No Mallampati Class: 2 Mouth Opening: Normal (> 3cm) Thyromental Distance: Greater than 3 cm Neck Range of Motion: Full ROM Neck Circumference: Normal Teeth Condition: Normal Dentition (Appropriate wear to natural teeth) and Removable Dentures/Plates Upper ASA Classification ASA Score: ASA 3 Emergency Case?: No NPO Status NPO Status: NPO Clears >2 hours, Solids >8 hours Anesthesia Plan Resuscitation Status: DNR/DNI Anesthesia Technique: MAC Anesthesia Airway Planned: Natural Airway Monitors Used: Standard Monitors Preoperative Comments:: Pt. presented pale appearing this morning with initial BP in the 80's. He stated he feels tired. He has positive orthostatic VS supine HR:60, BP: 105, sitting HR:88, BP 60's systolic. His Blood glucose is WNL. Denies chest pain or SOB, just Feel really tired. He denies dark stool but is on Xarelto. Plan is to send to ED for further evaluation. Due to bed delay, we will start an IV of LR, draw CBC/CMP/Coags/Troponin and type and screen, as well as do an 12 lead ECG and have him remain in supine posiiton with good hemodynamics. I updated the ED physician with a brief report and patient will be transferred soon.
[2020-10-21 10:10] VITALS: BMI 23.3
[2020-10-21 10:14] LABS: HCT 27.7 % (40.0-50.0); MCH 29.5 pg (27.0-33.0); MCHC 32.5 % (32.0-36.0); MCV 90.8 fL (80-95); MPV 9.9 fL (8.0-11.0); Platelet Count 212 10^3/uL (130-400); RBC 3.05 10^6/uL (4.36-5.78); RDW 13.9 % (11.8-14.1); RDW-SD 45.1 fL; WBC 4.15 10^3/uL (4.4-10.8)
--- NOTE | 2020-10-21 10:14 | NUR.NOTE ---
EKG done. IV access obtained. Blood drawn and sent to lab. Stool/OB +. Transferred to ER. Nursing Note:
[2020-10-21 10:25] LABS: INR 1.2 (0.9-1.1); PTT Activated 33.4 sec (21.0-27.5); Prothrombin Time 11.6 sec (9.3-11.0)
[2020-10-21 10:28] LABS: ALT 13 U/L (16-63); AST 14 U/L (15-37); Albumin 2.4 g/dL (3.4-5.0); Alkaline Phosphatase 95 U/L (46-116); Anion Gap 5.3 mmol/L (3-11); BUN 20 mg/dL (7-18); Bilirubin, Total 0.4 mg/dL (0.2-1.0); CO2 28.7 mmol/L (21.0-32.0); CREATININE 2.3 mg/dL (0.70-1.30); Calcium 8.4 mg/dL (8.5-10.1); Chloride 109 mmol/L (98-107); Estimated GFR 27.86 (mL/min/1.73m2); Glucose 90 mg/dL (74-106); Potassium 4.5 mmol/L (3.5-5.1); Sodium 143 mmol/L (136-145); Total Protein 5.3 g/dL (6.4-8.2)
[2020-10-21 10:30] LABS: Troponin I < 0.05 ng/mL (<0.06)
== END 2020-10-21 09:04 | disposition home or self-care (01) ==
LOC: SUR 09:03
PROVIDERS: Nurse Anesthetist, Certified Registered; PCP Family Medicine; Visit Provider Ophthalmology
DX: H26.9 Unspecified cataract (principal); Z53.09 Procedure and treatment not carried out because of other contraindication; R00.1 Bradycardia, unspecified; I95.9 Hypotension, unspecified; R55 Syncope and collapse; R82.79 Other abnormal findings on microbiological examination of urine; Z96.0 Presence of urogenital implants
CPT/HCPCS: 36410; 36415; 80053; 85027; 86850; 86900; 86901; 87040; 87077; 96360; 99285; 71046; 81003; 81015; 83605; 84484; 85610; 85730; 87086; 87186; 93005; 93010

== ENCOUNTER 2020-10-21 09:54 | Emergency (ER) | payer MEDICARE, MEDICAID, SELFPAY ==
[2020-10-21] VITALS (20 sets, daily range): BP systolic 71–145; BP diastolic 49–66; PULSE 48–120; RESP 12–30; TEMP 36.5; O2SAT 91–100
--- NOTE | 2020-10-21 10:02 | ED.GENADUL_ITS ---
Discharge Plan Disposition Patient Disposition: HOME Condition: Stable Discharge Details Clinical Impression: Orthostatic hypotension, Near syncope Primary Care Provider: Isak Magana ED Provider: Andreina Garg Home Meds and New Rx's Prescriptions: Continued magnesium oxide 400 mg magnesium tablet 400 mg PO DAILY RF: 0 Lantus Solostar U-100 Insulin 100 unit/mL (3 mL) insulin pen 15 unit subcut DAILY RF: 0 levetiracetam 750 mg tablet 750 mg PO BID RF: 0 tramadol 50 mg tablet 25 mg PO Q8H PRNRF: 0 multivitamin 1 EACH tablet 1 tab PO DAILY RF: 0 sertraline 100 MG tablet 100 mg PO DAILY RF: 0 atorvastatin [Lipitor] 40 MG tablet 80 mg PO HS RF: 0 fluticasone propion-salmeterol [Advair Diskus] 250-50 mcg/dose Blister With Device 1 inh INHALATION BID RF: 0 diltiazem HCl [DILT-XR] 240 mg Capsule,Ext.Rel 24h Degradable 240 mg PO DAILY RF: 0 melatonin 3 mg Tablet 3 mg PO HS PRNRF: 0 albuterol sulfate [ProAir HFA] 90 mcg/actuation Hfa Aerosol Inhaler 2 puff INHALATION Q6H PRNRF: 0 finasteride 5 mg Tablet 5 mg PO DAILY RF: 0 tamsulosin 0.4 MG capsule 0.8 mg PO DAILY Qty: 60 RF: 0 oxybutynin chloride 5 mg tablet 5 mg PO BID RF: 0 acetaminophen 325 mg tablet 650 mg PO Q4H PRN PRN (Reason: Pain) RF: 0 metoprolol succinate 25 mg Tablet Extended Release 24 Hr 12.5 mg PO DAILY RF: 0 sucralfate 1 gram Tablet 1 g PO AC & HS Qty: 120 RF: 0 Xarelto 15 mg tablet 10 mg PO DAILY@1800 Qty: 0 RF: 0 insulin aspart U-100 [Novolog Flexpen U-100 Insulin] 100 unit/mL (3 mL) insulin pen See Rx Instructions subcut .COMPLEX RF: 0 donepezil 5 mg Tablet 5 mg PO DAILY RF: 0 dextrose [Glucose Gel] 40 % Gel 15 g PO Q15M PRNRF: 0 magnesium hydroxide [Milk of Magnesia] 400 mg/5 mL Suspension 400 mg PO DAILY PRNRF: 0 bisacodyl [Dulcolax (bisacodyl)] 10 mg Suppository 10 mg NM PRN PRNRF: 0 Fleet Enema 19-7 gram/118 mL Enema 118 ml NM PRN PRNRF: 0 Glucagon (HCl) Emergency Kit 1 mg Recon Soln 1 mg IM PRN PRNRF: 0 Discharge Instructions Instructions: Hypotension (ED), Near Syncope (ED) Additional Instructions: Continue to hydrate with plenty of fluids. Sit and stand up slowly to prevent significant drops in blood pressure. Your urine sample was sent for culture. You will be notified if it is positive for bacteria. We are holding on antibiotics until we have your urine culture result. You will need to reschedule your cataract surgery. Follow-up with your primary care doctor in 2 to 3 days. Return to the emergency department with any worsening or new concerning symptoms. Discharge Data Discharge Date/Time-TO BE ENTERED AT DEPARTURE: 10/21/20 14:51 Discharge Physician: Andreina Garg Medical Decision Making 74-year-old male from health [facility] rehab with a history of diabetes, COPD, CKD, BPH with chronic indwelling Whitt catheter presents from day surgery where he was scheduled for cataract surgery and noted to be hypotensive and appearing pale and referred here to the ER for evaluation. Systolic blood pressure as low as 60s upon sitting up and was thought to be orthostatic in day surgery. Blood pressure on arrival to the ER 124/58. He is afebrile and appears comfortable and nontoxic. He has no acute complaints. Bedside guaiac done which noted brown stool and negative. As he has no focal deficits or acute complaints, do not see an indication for brain imaging. Screening labs obtained in day surgery which noted a normal white blood cell count. A hemoglobin of 9 which appears his baseline. Creatinine of 2.3 which is baseline. EKG obtained in the surgery notes a rate of 60, sinus, no STEMI, nondiagnostic. Lactated Ringer's infusion started in day surgery, will give a 500 cc bolus and check orthostatic vital signs. Will obtain a urinalysis and chest x-ray. Urinalysis notes trace blood with small leukocyte esterase. Chest x-ray negative for acute disease. Orthostatic vital signs noted a significant drop in blood pressure from sitting to standing with systolic in the 70s. Blood pressure now 94/53. Will give additional IV fluids, food and reassess. Recheck of vital signs noted that patient remains orthostatic but with some i mprovement of systolic blood pressure upon standing into the 80s but he remains asymptomatic. Do not see an indication for admission or antibiotic treatment. Case discussed with [facility] and rehab community reinvestment act officer Stacy and will plan for discharge back to there. Advised to continue to push oral hydration and to stand up slowly. She will pass along information to the [facility] & provider who is not currently in house. Usual and customary return precautions given prior to discharge. Medical Records Medical records reviewed: Yes I reviewed the patient's medical records. Imaging Data Radiologic Study: Radiologist's impression: R CHEST 2V PA LATERAL CLINICAL HISTORY: syncope, hypotension, r/o acute disease. TECHNIQUE: 2D digital imaging was performed. COMPARISON: CR XR CHEST 2V PA LATERAL from 06/26/2020 FINDINGS: Heart size is normal. The mediastinum is not widened. Right lung is clear. There is platelike atelectasis in the lingular segment left lung. No pleural effusions. No pulmonary edema. No pneumothorax. IMPRESSION: There is platelike atelectasis in the left lung base. No other pulmonary findings. Lab Data Lab results reviewed: Yes I reviewed the patient's lab results. Labs: 10/21/20 11:25 Blood Blood Culture - Preliminary NO GROWTH 24 HOURS 10/21/20 11:10 Blood Blood Culture - Preliminary NO GROWTH 24 HOURS 10/21/20 11:30 Urine - Reflex from Ua Urine Culture - Preliminary Pseudomonas Species Gram Positive Kimmy Laboratory Tests Range/Units 10/21/20 10/21/20 11:10 11:30 VBG Lactate (0.6-1.4) mmol/L 0.9 Urine Color (Yellow) Yellow Urine Clarity (Clear) Sl Cloudy Urine pH (5-8) 7.5 Ur Specific [place] (1.005-1.025) 1.025 Urine Protein (Negative) mg/dL >=300 H Urine Ketones (Negative) mg/dL Negative Urine Blood (Negative) Trace-intact H Urine Nitrite (Negative) Negative Urine Bilirubin (Negative) Negative Urine Urobilinogen (Up TO 0.2) EU/dL 1.0 H Ur Leukocyte Esterase (Negative) Small H Urine RBC (0-2) HPF 5-10 H Urine WBC (0-5) HPF 20-50 H Ur Epithelial Cells (Negative) HPF Few Urine Crystals (Negative) HPF Negative Urine Bacteria (Negative) HPF Few Urine Casts (Negative) LPF Negative Urine Mucus (Negative) Negative Ur Culture Indicated? Yes Urine Glucose (Negative) mg/dL Negative ECG Data Attestation: I personally reviewed and interpreted this ECG (s) as follows: Interpretation: Rate of 60, sinus, no acute ST ovation or depression. NM 170. QRS 79. QTc 423 HPI General Mode of arrival: wheelchair . Date/Time Provider Initiated Documentation: 10/21/20 10:00 . Limitations to Documentation: altered mental status . Information obtained by: patient and RN/MD . HPI Narrative: Patient is a 74-y ear-old male with a history of BPH with chronic indwelling Whitt catheter, CVA, diabetes, GERD, hypertension, hyperlipidemia who presents from day surgery for hypotension and near syncope. Staff from day surgery notes that patient was there today for cataract surgery and upon arrival, appeared pale. They state he seemed orthostatic as his initial systolic blood pressure was in the 120s, but upon sitting had dropped to the 60s. Patient had labs including type and screen and EKG done at the surgery. Patient was transferred here for further evaluation. Patient stated to me that he lives at home with his son Hector. He told the nurse that it was May. He is oriented x3 for me and denies any acute complaints. He does recall that blood pressure dropped into the surgery and this is why he was brought to the ER but he does not recall feeling dizzy or feeling like he was going to pass out and denies any chest pain, shortness of breath, headache, blurry vision, abdominal pain Related Data Home Medications Medication Instructions Recorded Confirmed multivitamin 1 tab PO DAILY 02/08/15 10/21/20 sertraline 100 mg PO DAILY 02/08/15 10/21/20 atorvastatin [Lipitor] 80 mg PO HS tab 10/18/17 10/21/20 albuterol sulfate [ProAir HFA] 2 puff INHALATION Q6H PRN 12/04/18 10/21/20 diltiazem HCl [DILT-XR] 240 mg PO DAILY 12/04/18 10/21/20 finasteride 5 mg PO DAILY 12/04/18 10/21/20 fluticasone propion-salmeterol 1 inh INHALATION BID 12/04/18 10/21/20 [Advair Diskus] melatonin 3 mg PO HS PRN 12/04/18 10/21/20 tamsulosin 0.8 mg PO DAILY #60 cap 12/06/18 10/21/20 magnesium oxide 400 mg PO DAILY 05/18/19 10/21/20 levetiracetam 750 mg tablet 750 mg PO BID 01/10/20 10/21/20 tramadol 50 mg tablet 25 mg PO Q8H PRN tab 01/10/20 10/21/20 acetaminophen 650 mg PO Q4H PRN PRN 05/19/20 10/21/20 oxybutynin chloride 5 mg PO BID 05/19/20 10/21/20 metoprolol succinate 12.5 mg PO DAILY 05/23/20 10/21/20 Xarelto 10 mg PO DAILY@1800 #0 tab 05/27/20 10/21/20 sucralfate 1 g PO AC & HS #120 tab 05/27/20 10/21/20 insulin aspart U-100 100 unit/mL See Rx Instructions SUBCUT .COMPLEX 07/10/20 10/21/20 (3 mL) subcutaneous pen insulin glargine 100 unit/mL (3 15 unit SUBCUT DAILY ml 07/10/20 10/21/20 mL) subcutaneous pen Fleet Enema 118 ml NM PRN PRN 10/04/20 10/21/20 Glucagon (HCl) Emergency Kit 1 mg IM PRN PRN 10/04/20 10/21/20 bisacodyl [Dulcolax (bisacodyl)] 10 mg NM PRN PRN 10/04/20 10/21/20 dextrose [Glucose Gel] 15 g PO Q15M PRN 10/04/20 10/21/20 donepezil 5 mg PO DAILY 10/04/20 10/21/20 magnesium hydroxide [Milk of 400 mg PO DAILY PRN 10/04/20 10/21/20 Magnesia] Previous Rx's Medication Instructions Recorded atorvastatin [Lipitor] 80 mg PO HS tab 10/18/17 tamsulosin 0.8 mg PO DAILY #60 cap 12/06/18 Xarelto 10 mg PO DAILY@1800 #0 tab 05/27/20 sucralfate 1 g PO AC & HS #120 tab 05/27/20 Allergies Allergy/AdvReac Type Severity Reaction Status Date / Time No Known Allergies Allergy Unverified 10/07/20 11:11 General KAELA: 4 Review of Systems All systems reviewed & are unremarkable except as noted in HPI and below Constitutional Constitutional: Reports as per HPI, Denies chills and Denies fever(s) Eyes Eyes: Denies blurry vision ENT Ears, Nose, Mouth, and Throat: Denies dizziness, Denies sore throat and Denies throat swelling Cardiovascular Cardiovascular: Denies chest pain and Denies dyspnea Respiratory Respiratory: Denies cough and Denies dyspnea Gastrointestinal Gastrointestinal: Denies abdominal pain, Denies diarrhea and Denies vomiting Genitourinary Genitourinary: Denies hematuria and Denies dysuria Musculoskeletal Musculoskeletal: Denies back pain and Denies numbness Integumentary/Breasts Skin/Breast: Denies lesions and Denies rash Neurologic Neurologic: Denies dizziness, Denies localized weakness and Denies numbness Allergic/Immunologic Allergic/Immunologic: Denies throat swelling PFSH Medical History (Updated 10/21/20 @ 14:20 by Andreina Garg DO) Cerebrovascular disease CVA CKD (chronic kidney disease) COPD (chronic obstructive pulmonary disease) Diabetes Diabetic gastroenteropathy GERD (gastroesophageal reflux disease) HTN (hypertension) Hyperlipidemia Indwelling urinary catheter present Seizure Urinary retention Surgical History (Updated 10/07/20 @ 10:23 by Reggie Antunez MD) EGD - MAC (07/28/16) S/P insertion of penile implant S/P prostatectomy Social History Smoking/Tobacco Use Status: Former Tobacco Use Smoking risk assessment performed?: Yes Alcohol Intake: never Drug use: Never Substance use type: does not use Household members: children Housing: [facility] 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
--- NOTE | 2020-10-21 10:30 | DI.RAD_ITS ---
Exam(s) XR CHEST 2V PA LATERAL EXAM: XR CHEST 2V PA LATERAL CLINICAL HISTORY: syncope, hypotension, r/o acute disease. TECHNIQUE: 2D digital imaging was performed. COMPARISON: CR XR CHEST 2V PA LATERAL from 06/26/2020 FINDINGS: Heart size is normal. The mediastinum is not widened. Right lung is clear. There is platelike atelectasis in the lingular segment left lung. No pleural e ffusions. No pulmonary edema. No pneumothorax. IMPRESSION: There is platelike atelectasis in the left lung base. No other pulmonary findings. DATA REPOSITORY: RADIATION DOSE DELIVERED:
[2020-10-21 11:34] LABS: Lactate 0.9 mmol/L (0.6-1.4)
[2020-10-21 11:39] LABS: Bilirubin Negative (Negative); Blood Trace-intact (Negative); Clarity Sl Cloudy (Clear); Glucose Negative (Negative); Ketones Negative (Negative); Leukocyte Esterase Small (Negative); Nitrite Negative (Negative); Specific Gravity 1.025 (1.005-1.025); pH 7.5 (5-8)
[2020-10-21 11:52] LABS: WBC 20-50 HPF (0-5)
[2020-10-21 11:53] LABS: Bacteria Few HPF (Negative); C & S Indicated? Yes; Casts Negative LPF (Negative); Crystals Negative HPF (Negative); Epithelial Cells Few HPF (Negative); Mucus Negative (Negative)
[2020-10-21] MEDS: Lactated Ringers 500 ML IV (12:18)
[2020-10-21] MEDS: Normal Saline 500 ML IV (12:18)
== END 2020-10-21 14:51 | disposition home or self-care (01) ==
PROVIDERS: Emergency Provider Physician Assistant; PCP Family Medicine
DX: R55 Syncope and collapse (principal); I95.1 Orthostatic hypotension; R82.79 Other abnormal findings on microbiological examination of urine; Z96.0 Presence of urogenital implants
CPT/HCPCS: 36410; 36415; 87040; 87077; 96360; 99285; 71046; 81003; 81015; 83605; 87086; 87186

== ENCOUNTER → 2020-11-14 10:52 | Outpatient (BNVA) | payer MEDICARE, MEDICAID, SELFPAY | PROVIDERS: PCP Family Medicine; Referring Provider Family Medicine; Visit Provider Nurse Practitioner Gerontology | DX: N48.9 Disorder of penis, unspecified (principal); R33.8 Other retention of urine | CPT/HCPCS: 99215 ==

== ENCOUNTER 2020-11-15 10:28 | Day surgery (SDC) | payer MEDICARE, MEDICAID, SELFPAY ==
[2020-11-15 10:54] VITALS: BP 116/53; PULSE 80; RESP 16; TEMP 36.1; O2SAT 97
[2020-11-15] MEDS: Tropicam./Phenyleph. (1/2.5%) 5 ML BTL OS ×3 (11:08→11:18)
--- NOTE | 2020-11-15 11:58 | ANES.PREOP_ITS ---
General Info Date of Service Date Performed: 11/15/20 Height: 5 ft 11 in Weight: 76 kg Body Mass Index (BMI): 23.3 Surgical Procedure: Operation Date: 11/15/20 13:40 Proposed Procedures Side Surgeon p Cataract Extraction with IOL Implant Left Reggie Antunez MD Meds Allergies and Home Medications Allergies Allergy/AdvReac Type Severity Reaction Status Date / Time No Known Allergies Allergy Unverified 11/15/20 11:38 Home Medication Medication Instructions Recorded multivitamin 1 tab PO DAILY 02/08/15 sertraline 100 mg PO DAILY 02/08/15 atorvastatin [Lipitor] 80 mg PO HS tab 10/18/17 albuterol sulfate [ProAir HFA] 2 puff INHALATION Q6H PRN 12/04/18 diltiazem HCl [DILT-XR] 240 mg PO DAILY 12/04/18 finasteride 5 mg PO DAILY 12/04/18 fluticasone propion-salmeterol 1 inh INHALATION BID 12/04/18 [Advair Diskus] melatonin 3 mg PO HS PRN 12/04/18 tamsulosin 0.8 mg PO DAILY #60 cap 12/06/18 magnesium oxide 400 mg PO DAILY 05/18/19 levetiracetam 750 mg tablet 750 mg PO BID 01/10/20 tramadol 50 mg tablet 25 mg PO Q8H PRN tab 01/10/20 acetaminophen 650 mg PO Q4H PRN PRN 05/19/20 oxybutynin chloride 5 mg PO BID 05/19/20 metoprolol succinate 12.5 mg PO DAILY 05/23/20 Xarelto 10 mg PO DAILY@1800 #0 tab 05/27/20 sucralfate 1 g PO AC & HS #120 tab 05/27/20 insulin aspart U-100 100 unit/mL See Rx Instructions SUBCUT .COMPLEX 07/10/20 (3 mL) subcutaneous pen insulin glargine 100 unit/mL (3 15 unit SUBCUT DAILY ml 07/10/20 mL) subcutaneous pen Fleet Enema 118 ml IA PRN PRN 10/04/20 Glucagon (HCl) Emergency Kit 1 mg IM PRN PRN 10/04/20 bisacodyl [Dulcolax (bisacodyl)] 10 mg IA PRN PRN 10/04/20 dextrose [Glucose Gel] 15 g PO Q15M PRN 10/04/20 donepezil 5 mg PO DAILY 10/04/20 magnesium hydroxide [Milk of 400 mg PO DAILY PRN 10/04/20 Magnesia] sertraline 25 mg PO DAILY 11/13/20 Current Visit Medications: Current Medications Generic Name Dose Route Start Last Admin Trade Name Freq PRN Reason Stop Dose Admin Acetaminophen 1,000 mg 11/15/20 06:00 Acetaminophen 500 Mg Tab PO Q4H PRN PRN Miscellaneous Medication 0 ml 11/15/20 06:00 Prednisolone 1%, Moxifloxacin 0.5%, Nepafenac 0.1% 5ml Btl OS DIRECTED LASHAWN Miscellaneous Medication 0 ml 11/15/20 06:00 11/15/20 11:18 Tropicam./Phenyleph. (1/2.5%) 5 Ml Btl OS 1 drp DIRECTED LASHAWN Administration Tetracaine HCl 0 ml 11/15/20 06:00 Tetracaine 0.5% 4 Ml Btl OS DIRECTED LASHAWN PFSH Active Problems Active Problems: Problem Status Onset Code Mental status alteration R41.82 Urinary retention R33.9 Diabetes type 2, controlled E11.9 Renal insufficiency N28.9 Bladder mass N32.89 Discharge planning issues Z02.9 Seizure disorder G40.909 UTI (urinary tract infection) N39.0 Spell of altered cognition R41.89 Vasovagal syncope R55 Acute exacerbation of chronic obstructive pulmonary disease (COPD) J44.1 Sepsis A41.9 Atrial fibrillation with rapid ventricular response I48.91 Acute kidney injury superimposed on chronic kidney disease N17.9, N18.9 DVT prophylaxis Z29.9 Discharge planning issues Z02.9 Acute respiratory failure with hypoxia J96.01 Syncope R55 Babinski reflex R29.2 Nausea R11.0 Hypertensive emergency I16.1 Paroxysmal atrial fibrillation I48.0 Spell of abnormal behavior R46.89 Dysarthria R47.1 Spells of trembling R25.1 Vascular dementia F01.50 Difficulty in swallowing R13.10 Vomiting R11.10 Urinary tract infection N39.0 Thrush B37.0 Dysphagia R13.10 Oropharyngeal candidiasis B37.0 DVT prophylaxis Z29.9 Discharge planning issues Z02.9 Weakness on left side of face R29.810 Palliative care patient Z51.5 DNR (do not resuscitate) Z66 Nuclear sclerotic cataract of right eye H25.11 Posterior subcapsular age-related cataract, right eye H25.041 Whitt catheter problem T83.9XXA Nuclear sclerotic cataract of left eye H25.12 Posterior subcapsular age-related cataract of left eye H25.042 Orthostatic hypotension I95.1 Near syncope R55 Urinary retention R33.9 CKD (chronic kidney disease) N18.9 COPD (chronic obstructive pulmonary disease) J44.9 Cerebrovascular disease I67.9 Medical History Medical History Oswald esophagus Cerebrovascular disease CVA CKD (chronic kidney disease) COPD (chronic obstructive pulmonary disease) Coronary artery disease with angina pectoris Diabetes Diabetic gastroenteropathy Difficulty in walking GERD (gastroesophageal reflux disease) Hemiplegia affecting left nondominant side HTN (hypertension) Hyperlipidemia Indwelling urinary catheter present Major depressive disorder Seizure Sleep apnea Urinary retention Surgical History Surgical History EGD - MAC (07/28/16) Hx of cataract surgery S/P insertion of penile implant S/P prostatectomy Tobacco Smoking/Tobacco Use Status: Former Tobacco Use Alcohol Alcohol Intake: never Substance Use Substance use: Never Substance use type: does not use Vital Signs and Lab Results Vital Signs Most Recent Vital Signs in EMR: Most Recent Vital Signs Temp Pulse Resp BP Pulse Ox 36.1 C L 80 16 116/53 L 97 11/15/20 10:54 11/15/20 10:54 11/15/20 10:54 11/15/20 10:54 11/15/20 10:54 Point of Care Results Point of Care Results: Finger Stick Blood Glucose 113 11/15/20 10:53 Lab Results Blood Type / Crossmatch: Patient ABO/Rh A Positive 10/21/20 10:00 10/21/20 Antibody Screen NEGATIVE 10/21/20 10:00 10/21/20 Complete Blood Count: White Blood Count 4.15 10^3/uL (4.4-10.8) L 10/21/20 10:00 10/21/20 Red Blood Count 3.05 10^6/uL (4.36-5.78) L 10/21/20 10:00 10/21/20 Hemoglobin 9.0 g/dL (13.5-17.5) L 10/21/20 10:00 10/21/20 Hematocrit 27.7 % (40.0-50.0) L 10/21/20 10:00 10/21/20 Platelet Count 212 10^3/uL (130-400) 10/21/20 10:00 10/21/20 Venous Blood Lactate 0.9 mmol/L (0.6-1.4) 10/21/20 11:10 10/21/20 Complete Metabolic Panel: Sodium Level 143 mmol/L (136-145) 10/21/20 10:00 10/21/20 Potassium Level 4.5 mmol/L (3.5-5.1) 10/21/20 10:00 10/21/20 Chloride Level 109 mmol/L (98-107) H 10/21/20 10:00 10/21/20 Carbon Dioxide Level 28.7 mmol/L (21.0-32.0) 10/21/20 10:00 10/21/20 Blood Urea Nitrogen 20 mg/dL (7-18) H 10/21/20 10:00 10/21/20 Creatinine 2.3 mg/dL (0.70-1.30) H 10/21/20 10:00 10/21/20 Estimated GFR/1.73 m2 27.86 (mL/min/1.73m2) 10/21/20 10:00 10/21/20 Calcium Level 8.4 mg/dL (8.5-10.1) L 10/21/20 10:00 10/21/20 Albumin 2.4 g/dL (3.4-5.0) L 10/21/20 10:00 10/21/20 Glucose Level 90 mg/dL (74-106) 10/21/20 10:00 10/21/20 Liver Function Panel: Alanine Aminotransferase (ALT/SGPT) 13 U/L (16-63) L 10/21/20 10:00 10/21/20 Aspartate Amino Transf (AST/SGOT) 14 U/L (15-37) L 10/21/20 10:00 10/21/20 Coagulation Panel: INR International Normalized Ratio 1.2 (0.9-1.1) H 10/21/20 10:00 10/21/20 Prothrombin Time 11.6 sec (9.3-11.0) H 10/21/20 10:00 10/21/20 Activated Partial Thromboplast Time 33.4 sec (21.0-27.5) H 10/21/20 10:00 10/21/20 Cardiac Panel: Troponin I < 0.05 ng/mL (<0.06) 10/21/20 10:00 10/21/20 Arterial Blood Gas: No Data to Display Venous Blood Gas: 2 No Data to Display Pancreas Panel: No Data to Display Thyroid Panel: No Data to Display Infectious Disease: No Data to Display Blood Cultures: No Data to Display Toxicology Panel: No Data to Display Imaging and Studies Imaging and Studies EKG Summary: 06/26/2020 Conclusion Sinus bradycardia...rate< 60 Low voltage, extremity leads...all extremity leads <0.5mV I have reviewed and I agree with the emergency room physician???s ECG interpretation. Echocardiogram Summary: Date of study: 12/21/2018 Transthoracic Echocardiography M-mode, complete 2D, complete spectral Doppler, and color Doppler *STUDY CONCLUSIONS* Summary: 1. Left ventricle: The cavity size was normal. Systolic function was hyperdynamic. The estimated ejection fraction was 65-70%. Diastolic parameters were normal for age. There was no evidence of elevated ventricular filling pressure by Doppler parameters. 2. Right ventricle: The cavity size was mildly dilated. Systolic function was normal. 3. Atrial septum: No defect or patent foramen ovale was identified. 4. Pulmonary arteries: Pulmonary systolic pressure was in the range of 45mm Hg to 55mm Hg. 5. Inferior vena cava: The vessel was patent and normal in size. The respirophasic diameter changes were in the normal range (greater than or equal to 50%), consistent with normal central venous pressure. Anesthesia Assessment and Plan Anesthesia History Personal History: No History of Anesthesia Complications Family History: No Family History of Anesthesia Complications Exercise Tolerance Exercise Tolerance: Metabolic Equivalents<4 Cardiac & Pulmonary Exam Cardiac Exam: Normal S1/S2 Heart Sounds Pulmonary Exam: Clear Bilateral Breath Sounds Airway Exam Known Difficult Airway: No Mallampati Class: 2 Mouth Opening: Normal (> 3cm) Thyromental Distance: Greater than 3 cm Neck Range of Motion: Full ROM Neck Circumference: Normal Teeth Condition: Normal Dentition (Appropriate wear to natural teeth) and Removable Dentures/Plates Upper ASA Classification ASA Score: ASA 3 Emergency Case?: No NPO Status NPO Status: NPO Clears >2 hours, Solids >8 hours Anesthesia Plan Resuscitation Status: Full Code Anesthesia Technique: MAC Anesthesia Airway Planned: Natural Airway Monitors Used: Standard Monitors Preoperative Comments:: 74 yo male for cataract removal. Discussed plan and would like to proceed in the same manner as his last. Discussed code status and would like to be full code for procedure.
[2020-11-15 11:59] VITALS: BMI 23.3
[2020-11-15] MEDS: Balanced Salt Soln.-PLUS 500 ML BAG ×2 (13:14→13:46)
[2020-11-15] MEDS: Tetracaine 0.5% 4 ML BTL OS (13:14)
[2020-11-15] MEDS: Duovisc Viscoelastic System EACH 1 EACH (13:15)
[2020-11-15] MEDS: Lidocaine 1% Pres-Free 5 ML VIAL (13:15)
[2020-11-15] MEDS: Lidocaine 2% Jelly 6 ML SYR (13:16)
[2020-11-15] MEDS: Povidone-Iodine Ophth 30 ML BTL (13:17)
[2020-11-15 14:01] VITALS: BP 146/66; PULSE 70; RESP 16; TEMP 36.8; O2SAT 100
--- NOTE | 2020-11-15 14:04 | PDOC.DSDIS_ITS ---
Discharge Plan Disposition Patient Disposition: HOME Condition: Good Discharge Details Reason For Visit: CATARACT Attending Provider: Reggie Antunez Primary Care Provider: Isak Magana [place] Meds and New Rx's Prescriptions: No Action magnesium oxide 400 mg magnesium tablet 400 mg PO DAILY RF: 0 Lantus Solostar U-100 Insulin 100 unit/mL (3 mL) insulin pen 15 unit subcut DAILY RF: 0 levetiracetam 750 mg tablet 750 mg PO BID RF: 0 tramadol 50 mg tablet 25 mg PO Q8H PRNRF: 0 multivitamin 1 EACH tablet 1 tab PO DAILY RF: 0 sertraline 100 MG tablet 100 mg PO DAILY RF: 0 atorvastatin [Lipitor] 40 MG tablet 80 mg PO HS RF: 0 sertraline 25 mg Tablet 25 mg PO DAILY RF: 0 fluticasone propion-salmeterol [Advair Diskus] 250-50 mcg/dose Blister With Device 1 inh INHALATION BID RF: 0 diltiazem HCl [DILT-XR] 240 mg Capsule,Ext.Rel 24h Degradable 240 mg PO DAILY RF: 0 melatonin 3 mg Tablet 5 mg PO HS PRNRF: 0 albuterol sulfate [ProAir HFA] 90 mcg/actuation Hfa Aerosol Inhaler 2 puff INHALATION Q6H PRNRF: 0 finasteride 5 mg Tablet 5 mg PO DAILY RF: 0 tamsulosin 0.4 MG capsule 0.8 mg PO DAILY Qty: 60 RF: 0 oxybutynin chloride 5 mg tablet 5 mg PO BID RF: 0 acetaminophen 325 mg tablet 650 mg PO Q4H PRN PRN (Reason: Pain) RF: 0 metoprolol succinate 25 mg Tablet Extended Release 24 Hr 12.5 mg PO DAILY RF: 0 sucralfate 1 gram Tablet 1 g PO AC & HS Qty: 120 RF: 0 Xarelto 15 mg tablet 10 mg PO DAILY@1800 Qty: 0 RF: 0 insulin aspart U-100 [Novolog Flexpen U-100 Insulin] 100 unit/mL (3 mL) insulin pen See Rx Instructions subcut .COMPLEX RF: 0 donepezil 5 mg Tablet 5 mg PO DAILY RF: 0 dextrose [Glucose Gel] 40 % Gel 15 g PO Q15M PRNRF: 0 magnesium hydroxide [Milk of Magnesia] 400 mg/5 mL Suspension 400 mg PO DAILY PRNRF: 0 bisacodyl [Dulcolax (bisacodyl)] 10 mg Suppository 10 mg ID PRN PRNRF: 0 Fleet Enema 19-7 gram/118 mL Enema 118 ml ID PRN PRNRF: 0 Glucagon (HCl) Emergency Kit 1 mg Recon Soln 1 mg IM PRN PRNRF: 0 Discharge Instructions Stand Alone Forms: Post-op Topical Cataract, Press Ganey (DSU) Discharge Orders Discharge Orders: Discharge Order (Routine); Ordered 11/15/20 Ordered By: Reggie Antunez DS: Diagnosis Discharge Diagnosis (1) Nuclear sclerotic cataract of left eye: Status: Resolved (2) Posterior subcapsular age-related cataract of left eye: Status: Resolved
--- NOTE | 2020-11-15 14:06 | W.PM.OP ---
Date of service: 11/15/20 Time of Service: 14:07 Operative Note Operative Note DATE OF PROCEDURE: 11/15/20 PRE-OP DIAGNOSIS: Nuclear/posterior subcapsular cataract, left eye Poorly dilating pupil, left eye POST-OP DIAGNOSIS: same PROCEDURE: Cataract extraction by phacoemulsification with intraocular lens implantation, left eye, with pupillary expansion device SURGEON: Reggie Antunez ANESTHESIA TYPE: Local By Surgeon and MAC Refer to Anesthesia Record ESTIMATED BLOOD LOSS: 0 PATHOLOGY: none sent COMPLICATIONS: None Patient was transported to: same day Patient's condition: stable Implants: [employer] / [employer] Tecnis [id number] Indications: Progressive decreased vision, left eye Procedure Description: CATARACT SURGERY OPERATIVE REPORT PREOPERATIVE DIAGNOSIS: 1. Nuclear/posterior subcapsular cataract, left eye 2. Poorly dilating pupil, left eye POSTOPERATIVE DIAGNOSIS: Same OPERATION: 1. Cataract extraction using phacoemulsification with posterior chamber intraocular lens implant, left eye. 2. Pupillary dilation and iris stabilization using Malyugin Ring IOL; IOL Colleter/Model: [employer] Jew[employer] / [employer]IA Tecnis [id number] IOL Power: + 19.0 diopters IOL Serial Number: [id number] Optic Diameter: 6.0 mm Haptic/Overall Diameter: 13.00 mm PHACO INFO: [employer] Internationalurion Vision System with OZil and Active Fluidics Cumulative Dispersed Energy (CDE): 13.10 seconds SURGEON: Reggie Antunez MD, FRANCI ANESTHESIA: Monitored Anesthesia Care (MAC), with local sub-tenon's anesthetic infiltration COMPLICATIONS: None SPECIMENS: None INDICATIONS FOR PROCEDURE: The patient is a 74-year-old gentleman with history of progressive decreased vision in both eyes secondary to the development of bilateral nuclear and posterior subcapsular cataract. He has a history of myopia and read without glasses. He would like to remain that way. He is already undergone cataract surgery in the right eye. He now presents for cataract surgery in the left eye. PROCEDURE: The correct surgical eye was identified and marked as the left eye and the pupil was dilated in the preoperative area using mydriatics, cycloplegics, and NSAIDS (except in aspirin allergic patients). The dilated pupil size was 4.0 mm. He elected to proceed without oral sedation. The patient was brought to the operating room where cardiopulmonary monitoring was instituted and surgical time-out was performed, confirming the correct operative eye and IOL power. Topical anesthesia was administered and ophthalmic povidone-iodine 5% was instilled into the conjunctival fornices. Lidocaine gel was applied to the cornea and the alexandra-ocular area was prepped with Betadine 10% solution and draped in the usual sterile fashion for intraocular surgery, including an aperture drape. A Tegaderm transparent film dressing was cut in half and used to cover the lashes and lid margins. Care was taken to sequester the lashes and lid margins under the Tegaderm dressing. A lid speculum was placed between the lids of the operative eye and the Michaela-Jsabir operating microscope was maneuvered into position. Kaiser scissors were then used to make a conjunctival buttonhole approximately 6mm posterior to the limbus in the inferonasal quadrant. Blunt dissection was carried out to expose bare sclera, and a blunt-tipped sub-tenon?s anesthesia cannula was introduced and passed posteriorly along the globe where non-preserved plain lidocaine was injected into posterior sub-Tenon?s space. A sideport knife was used to make a paracentesis port superiorly/superiortemporally. Intraocular phenylephrine/lidocaine was injected into the anterior chamber. The anterior chamber was then filled with viscoelastic. A 2.4mm keratome knife was used to create a half-thickness groove at the limbus and then to construct a three-plane near-clear corneal tunnel extending 2.0mm into clear cornea at the temporal position. A []mm Malyugin Ring was then inserted into the pupillary space and engaged with the Kuglen hook. A flap was raised on the anterior capsule and capsulorhexis forceps were used to complete a continuous curvilinear capsulorhexis of 5.0 mm. Balanced salt solution was then used to perform cortical cleaving hydrodissection and nuclear hydrodelineation until the lens could be freely rotated within the capsular bag. The lens nucleus was then disassembled and removed within the capsular bag and iris plane using phacoemulsification. Nuclear splitters were used to aid in cracking the nucleus into 2 halves. The lens had a rubbery consistency and would not explain usually. Additional dispersive viscoelastic was used to protect the corneal endothelium. Residual cortical material was removed using the 45-degree angled silicone I/A tip with 0.3mm port. The posterior capsule was carefully polished to remove as much residual lens epithelial cells as safely possible. The capsular bag was then inflated and the anterior chamber deepened with viscoelastic. The lens implant described above was inserted into the capsular bag using the GIA [place] Injector. A Kuglen hook was used to dial the IOL into position. The Malyugin Ring was removed in the reverse order of its insertion. Residual viscoelastic was then removed first from posterior to the IOL, then from the anterior chamber using the I/A handpiece. The lens implant was noted to center nicely within the capsular bag. The incisions were stromally hydrated, and the anterior chamber was reformed using BSS. Then 0.5cc of moxifloxacin 1.0mg/ml were injected into the capsular bag and anterior chamber. The incisions were checked with a Weck spear and found to be secure. Several drops of ophthalmic povidone-iodine 5% were then applied to the eye followed by two drops of Imprimis combination prednisolone/moxifloxacin/nepafenac solution. The drapes were removed and a clear plastic protective eye shield was placed over the eye. The patient was then returned to Same Day Surgery in stable condition.
--- NOTE | 2020-11-15 15:34 | W.ANESPOSTOP ---
Postoperative Evaluation Date, Time and Location Date Performed: 11/15/20 Time Performed: 14:04 Patient Location: Day Surgery Unit Vital Signs Most Recent Imported Vital Signs: Most Recent Vital Signs Temp Pulse Resp BP Pulse Ox 36.8 C 70 16 146/66 H 100 11/15/20 14:01 11/15/20 14:01 11/15/20 14:01 11/15/20 14:01 11/15/20 14:01 Pain Score Most Recent Pain Score: Most Recent Pain Score Pain Level 0 11/15/20 14:01 Assessment Mental Status: Awake (Alert & Oriented to Patient Baseline) Airway and Respiratory Function: Patent airway with normal (patient baseline) respiratory exam Cardiovascular Function: Hemodynamically Stable Hydration Status: Adequately Hydrated Nausea & Vomiting: No Nausea or Vomiting Pain: Pt. Denies Any Pain Peripheral Nerve Block: Patient did not receive a nerve block
== END 2020-11-15 14:33 | disposition home or self-care (01) ==
PROVIDERS: PCP Family Medicine; Visit Provider Ophthalmology
PROC: (CPT 66982; principal; 2020-11-15 13:30)
DX: H25.042 Posterior subcapsular polar age-related cataract, left eye (principal); H57.03 Miosis; E11.22 Type 2 diabetes mellitus with diabetic chronic kidney disease; J44.9 Chronic obstructive pulmonary disease, unspecified; N18.9 Chronic kidney disease, unspecified
CPT/HCPCS: 66982; V2632

== ENCOUNTER 2020-12-12 20:45 | Outpatient (REF) | payer MEDICARE, MEDICAID, SELFPAY ==
[2020-12-16 15:37] LABS: COVID-19 RT-PCR Result Not Detected ((See Note))
== END 2020-12-12 20:46 | disposition home or self-care (01) ==
LOC: LBN 20:45
PROVIDERS: PCP Family Medicine; Visit Provider Family Medicine
DX: Z20.822 Contact with and (suspected) exposure to COVID-19 (principal)
CPT/HCPCS: U0003

== ENCOUNTER 2020-12-16 07:37 | Day surgery (SDC) | payer MEDICARE, MEDICAID, SELFPAY ==
[2020-12-16 07:58] VITALS: BP 150/73; PULSE 60; RESP 16; TEMP 36.3; O2SAT 98
--- NOTE | 2020-12-16 08:04 | W.PM.HP.N ---
Date of service: 12/16/20 Time of Service: 08:04 Assessment and Plan Assessment and plan (1) Mental status alteration: Status: Acute (2) Urinary retention: Status: Chronic Assessment and plan: We will convert from his urethral catheter to a suprapubic tube History of Present Illness History of Present Illness Chief Complaint: Urethral erosion Narrative: This is a 75 year old man who has a history of urinary retention. Initially, he performed CIC. Then he had an indwelling urethral catheter. He now has urethral erosion from his catheter and presents for placement of a suprapubic tube. Review of Systems Narrative: No fevers or chills Hx cataracts No diabetes or thyroid dysfunction Hx COPD. No hemoptysis Hx atrial fibrillation. No chest pain No hepatitis, ulcers, jaundice, diarrhea or constipation Left sided weakness On chronic anticoagulants. No anemia No gout PFSH Medical History Oswald esophagus Cerebrovascular disease CVA CKD (chronic kidney disease) COPD (chronic obstructive pulmonary disease) Coronary artery disease with angina pectoris Diabetes Diabetic gastroenteropathy Difficulty in walking GERD (gastroesophageal reflux disease) Hemiplegia affecting left nondominant side HTN (hypertension) Hyperlipidemia Indwelling urinary catheter present Major depressive disorder Seizure on Keppra Sleep apnea Urinary retention Surgical History EGD - MAC (07/28/16) Hx of cataract surgery S/P insertion of penile implant S/P prostatectomy Social History Smoking/Tobacco Use Status: Former Tobacco Use Smoking risk assessment performed?: Yes Alcohol Intake: never Drug use: Never Substance use type: does not use Household members: children Housing: assisted 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 What is your relationship status?: Panel score (0-1 are the most socially isolated patients): 0 Seatbelt use: never Do you feel safe at home: Yes Do you feel safe in your relationship?: Yes Meds Allergies and Home Medications Allergies Allergy/AdvReac Type Severity Reaction Status Date / Time No Known Allergies Allergy Unverified 12/16/20 07:55 Home Medications Medication Instructions Recorded Confirmed Type multivitamin 1 tab PO DAILY 02/08/15 12/13/20 History sertraline 100 mg PO DAILY 02/08/15 12/13/20 History atorvastatin [Lipitor] 80 mg PO HS tab 10/18/17 12/13/20 Rx albuterol sulfate [ProAir HFA] 2 puff INHALATION Q6H PRN 12/04/18 12/13/20 History diltiazem HCl [DILT-XR] 240 mg PO DAILY 12/04/18 12/13/20 History finasteride 5 mg PO DAILY 12/04/18 12/13/20 History fluticasone propion-salmeterol 1 inh INHALATION BID 12/04/18 12/13/20 History [Advair Diskus] melatonin 5 mg PO HS PRN 12/04/18 12/13/20 History tamsulosin 0.8 mg PO DAILY #60 cap 12/06/18 12/13/20 Rx magnesium oxide 400 mg PO DAILY 05/18/19 12/13/20 History levetiracetam 750 mg tablet 750 mg PO BID 01/10/20 12/13/20 History tramadol 50 mg tablet 25 mg PO Q8H PRN tab 01/10/20 12/13/20 History acetaminophen 650 mg PO Q4H PRN PRN 05/19/20 12/13/20 History oxybutynin chloride 5 mg PO BID 05/19/20 12/13/20 History metoprolol succinate 12.5 mg PO DAILY 05/23/20 12/13/20 History Xarelto 10 mg PO DAILY@1800 #0 tab 05/27/20 12/13/20 Rx sucralfate 1 g PO AC & HS #120 tab 05/27/20 12/13/20 Rx insulin aspart U-100 100 unit/mL See Rx Instructions SUBCUT .COMPLEX 07/10/20 12/13/20 History (3 mL) subcutaneous pen insulin glargine 100 unit/mL (3 15 unit SUBCUT DAILY ml 07/10/20 12/13/20 History mL) subcutaneous pen Fleet Enema 118 ml WI PRN PRN 10/04/20 12/13/20 History Glucagon (HCl) Emergency Kit 1 mg IM PRN PRN 10/04/20 12/13/20 History bisacodyl [Dulcolax (bisacodyl)] 10 mg WI PRN PRN 10/04/20 12/13/20 History dextrose [Glucose Gel] 15 g PO Q15M PRN 10/04/20 12/13/20 History donepezil 5 mg PO DAILY 10/04/20 12/13/20 History magnesium hydroxide [Milk of 400 mg PO DAILY PRN 10/04/20 12/13/20 History Magnesia] sertraline 25 mg PO DAILY 11/13/20 12/13/20 History prednisolone sod ph-moxiflox 1 drp OPHTHALMIC (EYE) QAM 12/13/20 12/13/20 History Exam Const General: comfortable Neck Neck: supple Resp Effort & Inspection: normal respiratory effort Cardio Rate: regular rate Rhythm: regular rhythm GI Palpation: soft Neuro General: patient alert and patient awake
[2020-12-16] MEDS: Lactated Ringers 1,000 ML 80 ML IV (08:28)
--- NOTE | 2020-12-16 08:37 | W.ANESPRE ---
General Info Date of Service Date Performed: 12/16/20 Height: 5 ft 11 in Weight: 77.9 kg Body Mass Index (BMI): 23.9 Surgical Procedure: Operation Date: 12/16/20 08:40 Proposed Procedures Side Surgeon p Cystoscopy/Suprapubic Tube Insertion Harinder Cooney MD Meds Allergies and Home Medications Allergies Allergy/AdvReac Type Severity Reaction Status Date / Time No Known Allergies Allergy Unverified 12/16/20 07:55 Home Medication Medication Instructions Recorded multivitamin 1 tab PO DAILY 02/08/15 sertraline 100 mg PO DAILY 02/08/15 atorvastatin [Lipitor] 80 mg PO HS tab 10/18/17 albuterol sulfate [ProAir HFA] 2 puff INHALATION Q6H PRN 12/04/18 diltiazem HCl [DILT-XR] 240 mg PO DAILY 12/04/18 finasteride 5 mg PO DAILY 12/04/18 fluticasone propion-salmeterol 1 inh INHALATION BID 12/04/18 [Advair Diskus] melatonin 5 mg PO HS PRN 12/04/18 tamsulosin 0.8 mg PO DAILY #60 cap 12/06/18 magnesium oxide 400 mg PO DAILY 05/18/19 levetiracetam 750 mg tablet 750 mg PO BID 01/10/20 tramadol 50 mg tablet 25 mg PO Q8H PRN tab 01/10/20 acetaminophen 650 mg PO Q4H PRN PRN 05/19/20 oxybutynin chloride 5 mg PO BID 05/19/20 metoprolol succinate 12.5 mg PO DAILY 05/23/20 Xarelto 10 mg PO DAILY@1800 #0 tab 05/27/20 sucralfate 1 g PO AC & HS #120 tab 05/27/20 insulin aspart U-100 100 unit/mL See Rx Instructions SUBCUT .COMPLEX 07/10/20 (3 mL) subcutaneous pen insulin glargine 100 unit/mL (3 15 unit SUBCUT DAILY ml 07/10/20 mL) subcutaneous pen Fleet Enema 118 ml [place] PRN PRN 10/04/20 Glucagon (HCl) Emergency Kit 1 mg IM PRN PRN 10/04/20 bisacodyl [Dulcolax (bisacodyl)] 10 mg [place] PRN PRN 10/04/20 dextrose [Glucose Gel] 15 g PO Q15M PRN 10/04/20 donepezil 5 mg PO DAILY 10/04/20 magnesium hydroxide [Milk of 400 mg PO DAILY PRN 10/04/20 Magnesia] sertraline 25 mg PO DAILY 11/13/20 prednisolone sod ph-moxiflox 1 drp OPHTHALMIC (EYE) QAM 12/13/20 Current Visit Medications: Current Medications Generic Name Dose Route Start Last Admin Trade Name Freq PRN Reason Stop Dose Admin Ringer's Solution 1,000 mls @ 80 mls/hr 12/16/20 06:00 12/16/20 08:28 IV 12/16/20 23:59 80 mls/hr INFUSION LASHAWN Administration Cefazolin Sodium/Dextrose 1 gm in 50 mls @ 100 mls/hr 12/16/20 06:00 Ancef Duplex IVPB 12/16/20 23:59 PREOP LASHAWN IV Miscellaneous Supplies 1 each 12/16/20 06:00 Iv Access IV 12/16/20 23:59 DIRECTED LASHANW Sodium Chloride 0 ml 12/16/20 06:00 Normal Saline Flush 10 Ml Syr IV 12/16/20 23:59 PRN PRN Sodium Chloride 0 ml 12/16/20 06:00 Normal Saline 10 Ml Vial IJ 12/16/20 23:59 DIRECTED PRN Sterile Water 0 ml 12/16/20 06:00 Water,Injection,Sterile 10 Ml Vial IJ 12/16/20 23:59 DIRECTED PRN PFSH Active Problems Active Problems: Problem Status Onset Code Mental status alteration R41.82 Urinary retention R33.9 Diabetes type 2, controlled E11.9 Renal insufficiency N28.9 Bladder mass N32.89 Discharge planning issues Z02.9 Seizure disorder G40.909 UTI (urinary tract infection) N39.0 Spell of altered cognition R41.89 Vasovagal syncope R55 Acute exacerbation of chronic obstructive pulmonary disease (COPD) J44.1 Sepsis A41.9 Atrial fibrillation with rapid ventricular response I48.91 Acute kidney injury superimposed on chronic kidney disease N17.9, N18.9 DVT prophylaxis Z29.9 Discharge planning issues Z02.9 Acute respiratory failure with hypoxia J96.01 Syncope R55 Babinski reflex R29.2 Nausea R11.0 Hypertensive emergency I16.1 Paroxysmal atrial fibrillation I48.0 Spell of abnormal behavior R46.89 Dysarthria R47.1 Spells of trembling R25.1 Vascular dementia F01.50 Difficulty in swallowing R13.10 Vomiting R11.10 Urinary tract infection N39.0 Thrush B37.0 Dysphagia R13.10 Oropharyngeal candidiasis B37.0 DVT prophylaxis Z29.9 Discharge planning issues Z02.9 Weakness on left side of face R29.810 Palliative care patient Z51.5 DNR (do not resuscitate) Z66 Nuclear sclerotic cataract of right eye H25.11 Posterior subcapsular age-related cataract, right eye H25.041 Whitt catheter problem T83.9XXA Nuclear sclerotic cataract of left eye H25.12 Posterior subcapsular age-related cataract of left eye H25.042 Orthostatic hypotension I95.1 Near syncope R55 Urinary retention R33.9 CKD (chronic kidney disease) N18.9 COPD (chronic obstructive pulmonary disease) J44.9 Cerebrovascular disease I67.9 Medical History Medical History Oswald esophagus Cerebrovascular disease CVA CKD (chronic kidney disease) COPD (chronic obstructive pulmonary disease) Coronary artery disease with angina pectoris Diabetes Diabetic gastroenteropathy Difficulty in walking GERD (gastroesophageal reflux disease) Hemiplegia affecting left nondominant side HTN (hypertension) Hyperlipidemia Indwelling urinary catheter present Major depressive disorder Seizure on Keppra Sleep apnea Urinary retention Surgical History Surgical History EGD - MAC (07/28/16) Hx of cataract surgery S/P insertion of penile implant S/P prostatectomy Tobacco Smoking/Tobacco Use Status: Former Tobacco Use Alcohol Alcohol Intake: never Substance Use Substance use: Never Substance use type: does not use Vital Signs and Lab Results Vital Signs Most Recent Vital Signs in EMR: Most Recent Vital Signs Temp Pulse Resp BP Pulse Ox 36.3 C L 60 16 150/73 H 98 12/16/20 07:58 12/16/20 07:58 12/16/20 07:58 12/16/20 07:58 12/16/20 07:58 Point of Care Results Point of Care Results: Finger Stick Blood Glucose 95 12/16/20 07:56 Lab Results Blood Type / Crossmatch: No Data to Display Complete Blood Count: No Data to Display Complete Metabolic Panel: No Data to Display Liver Function Panel: No Data to Display Coagulation Panel: No Data to Display Cardiac Panel: No Data to Display Arterial Blood Gas: No Data to Display Venous Blood Gas: No Data to Display Pancreas Panel: No Data to Display Thyroid Panel: No Data to Display Infectious Disease: No Data to Display Blood Cultures: No Data to Display Toxicology Panel: No Data to Display Imaging and Studies Imaging and Studies EKG Summary: 06/26/2020 Conclusion Sinus bradycardia...rate< 60 Low voltage, extremity leads...all extremity leads <0.5mV I have reviewed and I agree with the emergency room physician???s ECG interpretation. Echocardiogram Summary: Date of study: 12/21/2018 Transthoracic Echocardiography M-mode, complete 2D, complete spectral Doppler, and color Doppler *STUDY CONCLUSIONS* Summary: 1. Left ventricle: The cavity size was normal. Systolic function was hyperdynamic. The estimated ejection fraction was 65-70%. Diastolic parameters were normal for age. There was no evidence of elevated ventricular filling pressure by Doppler parameters. 2. Right ventricle: The cavity size was mildly dilated. Systolic function was normal. 3. Atrial septum: No defect or patent foramen ovale was identified. 4. Pulmonary arteries: Pulmonary systolic pressure was in the range of 45mm Hg to 55mm Hg. 5. Inferior vena cava: The vessel was patent and normal in size. The respirophasic diameter changes were in the normal range (greater than or equal to 50%), consistent with normal central venous pressure. Anesthesia Assessment and Plan Anesthesia History Personal History: No History of Anesthesia Complications Family History: No Family History of Anesthesia Complications Exercise Tolerance Exercise Tolerance: Metabolic Equivalents<4 Pertinent Negatives Pertinent Negatives: No Symptoms of GERD Cardiac & Pulmonary Exam Cardiac Exam: Normal S1/S2 Heart Sounds Pulmonary Exam: Clear Bilateral Breath Sounds Airway Exam Known Difficult Airway: No Mallampati Class: 2 Mouth Opening: Normal (> 3cm) Thyromental Distance: Greater than 3 cm Neck Range of Motion: Full ROM Neck Circumference: Normal Teeth Condition: Normal Dentition (Appropriate wear to natural teeth) and Removable Dentures/Plates Upper ASA Classification ASA Score: ASA 3 Emergency Case?: No NPO Status NPO Status: NPO Clears >2 hours, Solids >8 hours Anesthesia Plan Resuscitation Status: Full Code Anesthesia Technique: General Anesthesia Airway Planned: Natural Airway Monitors Used: Standard Monitors Preoperative Comments:: Delay due to lack of COVID test. Surgeon and surgical team aware.
[2020-12-16 08:39] VITALS: BMI 23.9
[2020-12-16 08:46] LABS: Source Nasal/Nares
[2020-12-16 09:50] LABS: COVID-19 PCR Negative (Negative)
[2020-12-16] MEDS: ceFAZolin 1 GM/50 ML BAG IVPB (11:00)
[2020-12-16] MEDS: Lidocaine 2% Jelly 6 ML SYR (11:15)
[2020-12-16] MEDS: Bupivacaine 0.5% Pres-Free 30 ML VIAL (11:15)
--- NOTE | 2020-12-16 11:24 | W.PM.DSUDISC ---
Discharge Plan Disposition Patient Disposition: [facility] (LEVEL 2) [facility] Condition: Stable Discharge Details Reason For Visit: suprapubic tube Attending Provider: Harinder Cooney Primary Care Provider: Micah Wu Home Meds and New Rx's Prescriptions: No Action magnesium oxide 400 mg magnesium tablet 400 mg PO DAILY RF: 0 Lantus Solostar U-100 Insulin 100 unit/mL (3 mL) insulin pen 15 unit subcut DAILY RF: 0 levetiracetam 750 mg tablet 750 mg PO BID RF: 0 tramadol 50 mg tablet 25 mg PO Q8H PRNRF: 0 multivitamin 1 EACH tablet 1 tab PO DAILY RF: 0 sertraline 100 MG tablet 100 mg PO DAILY RF: 0 atorvastatin [Lipitor] 40 MG tablet 80 mg PO HS RF: 0 sertraline 25 mg Tablet 25 mg PO DAILY RF: 0 fluticasone propion-salmeterol [Advair Diskus] 250-50 mcg/dose Blister With Device 1 inh INHALATION BID RF: 0 diltiazem HCl [DILT-XR] 240 mg Capsule,Ext.Rel 24h Degradable 240 mg PO DAILY RF: 0 melatonin 3 mg Tablet 5 mg PO HS PRNRF: 0 albuterol sulfate [ProAir HFA] 90 mcg/actuation Hfa Aerosol Inhaler 2 puff INHALATION Q6H PRNRF: 0 finasteride 5 mg Tablet 5 mg PO DAILY RF: 0 tamsulosin 0.4 MG capsule 0.8 mg PO DAILY Qty: 60 RF: 0 oxybutynin chloride 5 mg tablet 5 mg PO BID RF: 0 acetaminophen 325 mg tablet 650 mg PO Q4H PRN PRN (Reason: Pain) RF: 0 metoprolol succinate 25 mg Tablet Extended Release 24 Hr 12.5 mg PO DAILY RF: 0 sucralfate 1 gram Tablet 1 g PO AC & HS Qty: 120 RF: 0 Xarelto 15 mg tablet 10 mg PO DAILY@1800 Qty: 0 RF: 0 insulin aspart U-100 [Novolog Flexpen U-100 Insulin] 100 unit/mL (3 mL) insulin pen See Rx Instructions subcut .COMPLEX RF: 0 donepezil 5 mg Tablet 5 mg PO DAILY RF: 0 dextrose [Glucose Gel] 40 % Gel 15 g PO Q15M PRNRF: 0 magnesium hydroxide [Milk of Magnesia] 400 mg/5 mL Suspension 400 mg PO DAILY PRNRF: 0 bisacodyl [Dulcolax (bisacodyl)] 10 mg Suppository 10 mg [place] PRN PRNRF: 0 Fleet Enema 19-7 gram/118 mL Enema 118 ml [place] PRN PRNRF: 0 Glucagon (HCl) Emergency Kit 1 mg Recon Soln 1 mg IM PRN PRNRF: 0 prednisolone sod ph-moxiflox 1-0.5 % Drops 1 drp OPHTHALMIC (EYE) QAM RF: 0 Discharge Instructions Additional Instructions: May restart xaralto 12/17 Followup 4 to 6 weeks for suprapubic catheter change (1st catheter change) catheter to leg bag or large drainage bag depending on pts activity dry dressing to suprapubic site daily until drainage stops - then may leave open to air Activity:: Activity as Tolerated Shower/Bathe:: 24 hours Discharge Orders Discharge Orders: Discharge Order (Routine); Ordered 12/16/20 Ordered By: Harinder Cooney DS: Diagnosis Discharge Diagnosis (1) Urinary retention: Status: Chronic (2) Urethral erosion by catheter: Status: Acute
--- NOTE | 2020-12-16 11:30 | ROE_ITS ---
Date of service: 12/16/20 Time of Service: 11:30 Operative Note Operative Note DATE OF PROCEDURE: 12/16/20 PRE-OP DIAGNOSIS: Urinary retention Urethral erosion POST-OP DIAGNOSIS: same PROCEDURE: Cystoscopy, Insert suprapubic tube SURGEON: Harinder Cooney ANESTHESIA TYPE: Local By Surgeon and General:No Airway Refer to Anesthesia Record ESTIMATED BLOOD LOSS: 25 PATHOLOGY: none sent COMPLICATIONS: None Patient was transported to: same day Implants: 16 Slovenian suprapubic catheter with 10 cc sterile water in balloon Indications: This is a 35-year-old gentleman who has a history of urinary retention. Initially, he was maintained with intermittent catheterization. When he was no longer able to perform self-catheterization, he had an indwelling urethral catheter. The catheter has caused urethral erosion. He presents for placement of a suprapubic tube. Findings: Urethral erosion Penile prosthesis in place but no evidence erosion of prosthetic device Procedure Description: Was brought to the operating room on 12/16/2020. After successful induction of general anesthesia without intubation, he was placed in the dorsal lithotomy position. His indwelling catheter was removed. Inspection of the penis revealed an eroded urethra ventrally with no visible penile prosthesis component. 2% Xylocaine jelly was then instilled into the urethra. A field block in the suprapubic area using quarter percent Marcaine was performed. A curved Lowsley tractor was passed through the urethra into the bladder. The tip of the Lowsley was held up against the abdominal wall and an incision was made overlying the tip. The tip was then brought through the incision onto the abdominal wall. The jaws of the Lowsley tractor were then opened and used to grasp a 16 Slovenian catheter. Catheter was pulled through the suprapubic tract, through the bladder and out the urethra. Cystoscopy was performed using a 17 Slovenian rigid cystoscope and a 30 degree lens. The catheter was withdrawn back into the lumen of the bladder. Once the catheter was seen within the bladder lumen, the catheter balloon was inflated with 10 cc of sterile water. The catheter was hooked to gravity drainage. The cystoscope was withdrawn. A dry sterile dressing was applied to the suprapubic site. He tolerated the procedure with no difficulty.
[2020-12-16 11:35] VITALS: BP 140/80; PULSE 66; RESP 16; TEMP 36.2; O2SAT 100
--- NOTE | 2020-12-16 11:36 | W.ANESPOSTOP ---
Postoperative Evaluation Date, Time and Location Date Performed: 12/16/20 Time Performed: 11:36 Patient Location: Day Surgery Unit Vital Signs Most Recent Imported Vital Signs: Most Recent Vital Signs Temp Pulse Resp BP Pulse Ox 36.3 C L 60 16 150/73 H 98 12/16/20 07:58 12/16/20 07:58 12/16/20 07:58 12/16/20 07:58 12/16/20 07:58 Most Recent Manually Entered Vital Signs: Adult Blood Pressure: 140/80 Heart Rate: 70 Respirations: 16 Oxygen Saturation (%): 100 Temperature (C): 36.2 C Pain Score (0-10 Scale): 0 Pain Score Most Recent Pain Score: Most Recent Pain Score Pain Level 0 12/16/20 07:58 Assessment Mental Status: Awake (Alert & Oriented to Patient Baseline) Airway and Respiratory Function: Patent airway with normal (patient baseline) respiratory exam Cardiovascular Function: Hemodynamically Stable Hydration Status: Adequately Hydrated Nausea & Vomiting: No Nausea or Vomiting Pain: Pt. Denies Any Pain Peripheral Nerve Block: Patient did not receive a nerve block
[2020-12-16 11:37] VITALS: BP 140/80; PULSE 70; RESP 16; TEMPC 36.2; O2SAT 100
[2020-12-16 12:12] VITALS: BP 134/73; PULSE 68; RESP 18; TEMP 36.3; O2SAT 99
== END 2020-12-16 12:57 | disposition intermediate care facility (04) ==
PROVIDERS: PCP Family Medicine; Visit Provider Urology
PROC: (CPT 51102; principal; 2020-12-16 08:30)
DX: R33.9 Retention of urine, unspecified (principal)
CPT/HCPCS: 51102; 87635; J0690; J2001

== ENCOUNTER 2020-12-23 16:13 | Outpatient (REF) | payer MEDICARE, MEDICAID, SELFPAY ==
[2020-12-23 17:42] LABS: Anion Gap 5.9 mmol/L (3-11); BUN 28 mg/dL (7-18); CO2 27.1 mmol/L (21.0-32.0); CREATININE 2.5 mg/dL (0.70-1.30); Calcium 7.7 mg/dL (8.5-10.1); Chloride 108 mmol/L (98-107); Estimated GFR 25.24 (mL/min/1.73m2); Glucose 203 mg/dL (74-106); Potassium 3.8 mmol/L (3.5-5.1); Sodium 141 mmol/L (136-145)
[2020-12-23 17:59] LABS: Abs Immature Grans 0.02 10^3/uL (0.0-0.06); Absolute Basophil Count 0.03 10^3/uL (0.0-0.2); Absolute Eosinophil Count 0.19 10^3/uL (0.0-0.7); Absolute Lymphocyte Count 1.21 10^3/uL (1.2-3.4); Absolute Monocyte Count 0.37 10^3/uL (0.1-0.8); Absolute Neutrophil Count 4.85 10^3/uL (1.2-6.7); Basophils % 0.4; Eosinophils % 2.8; HCT 25.9 % (40.0-50.0); HGB 8.4 g/dL (13.5-17.5); Immature Grans % 0.3; Lymphocytes % 18.1; MCH 29.5 pg (27.0-33.0); MCHC 32.4 % (32.0-36.0); MCV 90.9 fL (80-95); MPV 10.9 fL (8.0-11.0); Monocytes % 5.5; Neutrophils % 72.9; Nucleated RBC 0 %; Platelet Count 255 10^3/uL (130-400); RBC 2.85 10^6/uL (4.36-5.78); RDW 13.2 % (11.8-14.1); WBC 6.67 10^3/uL (4.4-10.8)
== END 2020-12-23 16:14 | disposition home or self-care (01) ==
LOC: LBN 16:13
PROVIDERS: PCP Family Medicine; Visit Provider Nurse Practitioner Family
DX: E11.40 Type 2 diabetes mellitus with diabetic neuropathy, unspecified (principal); J44.9 Chronic obstructive pulmonary disease, unspecified
CPT/HCPCS: 80048; 85025

== ENCOUNTER 2020-12-24 17:25 | Outpatient (REF) | payer MEDICARE, MEDICAID, SELFPAY | END 2020-12-24 17:26 | disposition home or self-care (01) | LOC: LBN 17:25 | PROVIDERS: PCP Family Medicine; Visit Provider Family Medicine | DX: N39.0 Urinary tract infection, site not specified (principal) | CPT/HCPCS: 87077; 87086; 87186 ==

== ENCOUNTER → 2021-01-31 13:57 | Outpatient (BNVA) | payer MEDICARE, MEDICAID, SELFPAY | PROVIDERS: PCP Family Medicine; Referring Provider Family Medicine; Visit Provider Urology | DX: R33.8 Other retention of urine (principal); T83.89XA Other specified complication of genitourinary prosthetic devices, implants and grafts, initial encounter; N36.8 Other specified disorders of urethra; Z43.5 Encounter for attention to cystostomy | CPT/HCPCS: 51705; 99213 ==

== ENCOUNTER 2021-03-07 12:39 | Outpatient (CLI) | payer MEDICARE, MEDICAID, SELFPAY ==
--- NOTE | 2021-03-07 | DI.RAD_ITS ---
Exam(s) XR ABDOMEN FLAT PLATE EXAM: XR ABDOMEN FLAT PLATE CLINICAL HISTORY: ABD PAIN, ? OBSTRUCTION, VOMITING, NO BOWEL MOVEMENT FOR DAYS TECHNIQUE: COMPARISON: CR,XR XR ABDOMEN FLAT UPRIGHT from 05/26/2020 FINDINGS: Three views were obtained. Bowel gas pattern is within normal limits with moderate amount of fecal m aterial in the colon. There is no evidence of bowel obstruction. No free air identified on these [place]te[place] films. No gross organomegaly. IMPRESSION: Negative examination of the abdomen. RADIATION DOSE DELIVERED: Total DLP
== END 2021-03-07 12:40 | disposition home or self-care (01) ==
LOC: DI 14:35 → LBN 16:45
PROVIDERS: PCP Family Medicine; Visit Provider Nurse Practitioner Family
DX: N39.0 Urinary tract infection, site not specified (principal); R10.9 Unspecified abdominal pain; R11.10 Vomiting, unspecified
CPT/HCPCS: 87077; 74018; 81003; 81015; 87086; 87186

== ENCOUNTER 2021-03-07 15:17 | Outpatient (REF) | payer MEDICARE, MEDICAID, SELFPAY ==
[2021-03-07 18:39] LABS: Clarity Cloudy (Clear); pH 7.5 (5-8)
[2021-03-07 18:40] LABS: Bilirubin Negative (Negative); Blood Moderate (Negative); Glucose 100 mg/dL (Negative); Ketones Negative (Negative); Leukocyte Esterase Small (Negative); Nitrite Negative (Negative); Urobilinogen 0.2 EU/dL (Up TO 0.2)
[2021-03-07 21:23] LABS: Bacteria Many HPF (Negative); Epithelial Cells Rare HPF (Negative); RBC 0-2 HPF (0-2); WBC 20-50 HPF (0-5)
[2021-03-07 21:24] LABS: C & S Indicated? Yes; Casts Negative LPF (Negative); Crystals Moderate Triple Phos HPF (Negative); Mucus Trace (Negative)
== END 2021-03-07 15:18 | disposition home or self-care (01) ==
LOC: LBN 15:17
PROVIDERS: PCP Family Medicine; Visit Provider Nurse Practitioner Family
DX: N39.0 Urinary tract infection, site not specified (principal); R10.9 Unspecified abdominal pain; R11.10 Vomiting, unspecified
CPT/HCPCS: 87077; 81003; 81015; 87086; 87186

== ENCOUNTER 2021-05-06 12:40 | Outpatient (REF) | payer MEDICARE, MEDICAID, SELFPAY ==
[2021-05-07 13:10] LABS: Levetiracetam 67.4 mcg/mL
== END 2021-05-06 12:41 | disposition home or self-care (01) ==
LOC: LBN 12:40
PROVIDERS: PCP Family Medicine; Visit Provider Family Medicine
DX: F33.1 Major depressive disorder, recurrent, moderate (principal)
CPT/HCPCS: 80177

== ENCOUNTER 2021-07-16 16:52 | Outpatient (REF) | payer MEDICARE, MEDICAID, SELFPAY ==
[2021-07-16 18:34] LABS: HCT 23.5 % (40.0-50.0); HGB 7.5 g/dL (13.5-17.5); MCH 30.9 pg (27.0-33.0); MCHC 31.9 % (32.0-36.0); MCV 96.7 fL (80-95); MPV 11.2 fL (8.0-11.0); Platelet Count 212 10^3/uL (130-400); RBC 2.43 10^6/uL (4.36-5.78); RDW 14.3 % (11.8-14.1); WBC 5.93 10^3/uL (4.4-10.8)
[2021-07-16 18:41] LABS: ALT 18 U/L (16-63); AST 14 U/L (15-37); Albumin 2.1 g/dL (3.4-5.0); Alkaline Phosphatase 86 U/L (46-116); Anion Gap 5.3 mmol/L (3-11); BUN 41 mg/dL (7-18); Bilirubin, Total 0.2 mg/dL (0.2-1.0); CO2 26.7 mmol/L (21.0-32.0); Calcium 7.5 mg/dL (8.5-10.1); Chloride 114 mmol/L (98-107); Glucose 115 mg/dL (74-106); Potassium 4.4 mmol/L (3.5-5.1); Sodium 146 mmol/L (136-145); Total Protein 4.4 g/dL (6.4-8.2)
[2021-07-16 19:04] LABS: CREATININE 5.3 mg/dL (0.70-1.30)
[2021-07-16 20:14] LABS: Hemoglobin A1C 5.7 % (<5.7)
[2021-07-19 12:17] LABS: Levetiracetam 34.6 mcg/mL
== END 2021-07-16 16:53 | disposition home or self-care (01) ==
LOC: LBN 16:52
PROVIDERS: PCP Family Medicine; Visit Provider Nurse Practitioner Family
DX: E11.9 Type 2 diabetes mellitus without complications (principal); N18.9 Chronic kidney disease, unspecified; R56.9 Unspecified convulsions; K21.9 Gastro-esophageal reflux disease without esophagitis; D64.9 Anemia, unspecified
CPT/HCPCS: 80053; 85027; 80177; 83036

== ENCOUNTER 2021-07-16 20:10 | Inpatient (IN) | payer MEDICARE, MEDICAID, SELFPAY ==
[2021-07-16] VITALS (28 sets, daily range): BP systolic 154–196; BP diastolic 73–104; PULSE 59–73; RESP 12; TEMP 36.8–37; O2SAT 97–100
--- NOTE | 2021-07-16 20:15 | DI.CT_ITS ---
Exam(s) CT CHEST/ABD/PEL WO EXAM: CT CHEST/ABD/PEL WO CLINICAL HISTORY: R/O Pneumonia, Eval Kidneys GFR 10 TECHNIQUE: Imaging Protocol: Axial computed tomography images with coronal and sagittal reformatted images were created and reviewed CONTRAST MATERIAL: Imaging Protocol: Axial computed tomography images with coronal and sagittal refo rmatted images were created and reviewed. COMPARISON: CT CT CHEST/ABD/PEL WO from 05/19/2020 FINDINGS: The examination is limited due to patient motion artifact. CHEST: Tracheobronchial tree: Patent where visualized. Pulmonary parenchyma: Dependent atelectasis. Centrilobular emphysema. Mediastinum and Criselda: No dominant adenopathy or fluid collection. The esophagus is unremarkable. Thyroid gland: Unremarkable. Pleura: Small bilateral pleural effusions. No pneumothorax. Heart: The heart is not dilated. Coronary artery calcifications. No pericardial effusion. Aorta: Thoracic aorta non-dilated. Atherosclerosis. Lymph nodes: Within normal limits. Bones:Within normal limits for the patient's age. Old healed right rib fractures. Soft tissues: Unremarkable. ABDOMEN: Liver: Normal density. No measurable mass. Gallbladder and Biliary Tract: No radiodense calculus or dilation. Pancreas: Normal density, no abnormal calcifications or inflammatory process. Spleen: Normal. Adrenals: No masses seen. Kidneys: Normal size, contour and axis. No radiodense stones or obstructive uropathy. No masses seen. Abdominal Aorta: Abdominal portion non-dilated. Atherosclerosis. Bowel: No obstruction or bowel wall thickening. No evidence of appendicitis. There is a large amount of stool in the rectum. Peritoneal Cavity: No ascites, collection or mesenteric inflammatory response. No free air. Lymph Nodes: Within normal limits. Bones: Within normal limits for the patient's age. Soft Tissues: Unremarkable. PELVIS: Bladder: Patient is a suprapubic catheter. There is diffuse thickening of the wall of the urinary bl adder. This is similar to the prior examination. There is some air within the urinary bladder likel y reflecting the catheterization. Reproductive Organs: Unremarkable as visualized. There is a penile implant with a reservoir in the [facility] inguinal region. Lymph Nodes: Within normal limits. Bones: Within normal limits. IMPRESSION: 1. Small bilateral pleural effusions with bibasilar infiltrates likely reflecting atelectasis. 2. Centrilobular emphysema. 3. No acute abdominal or pelvic process. 4. Large amount of stool in the rectum. RADIATION DOSE DELIVERED: 1,117.1mGy.cm Total DLP 1,117.1mGy.cm Total DLP DATA REPOSITORY: All CT scans at this facility are submitted to the National Radiology Data Registry (NRDR) Dose Index Registry (DIR) with the [employer] (A[employer]). RADIATION OPTIMIZATION: All CT scans at this facility use at least one of these dose optimization te chniques: automated exposure control; mA and/or kV adjustment per patient size (includes targeted exa ms where dose is matched to clinical indication); or iterative reconstruction.
--- NOTE | 2021-07-16 20:31 | ED.GENADUL_ITS ---
Discharge Plan Disposition Patient Disposition: [facility] INPATIENT Condition: Stable Discharge Details Clinical Impression: Elevated serum creatinine, CKD (chronic kidney disease) Admit Date/Time: 07/17/21 00:30 Admit Provider: Timbo Leija Attending Provider: Timbo Leija Primary Care Provider: Micah Wu ED Provider: Virginia Velez Discharge Data Discharge Date/Time-TO BE ENTERED AT DEPARTURE: 07/17/21 01:30 Medical Decision Making 75-year-old male presents to the ER via EMS with a chief complaint of elevated creatinine which was obtained today from rehab. Patient denies any symptoms however he does mention intermittent nausea. He denies any vomiting or diarrhea denies any fever or chills. He does have some expiratory wheezing noted and a congested cough. He has a past medical history of type 2 diabetes, chronic kidney disease, Oswald's esophagus, atrial fibrillation, seizure disorder, coronary artery disease, GERD, hyperlipidemia he has an indwelling suprapubic catheter, seizure and sleep apnea. He is alert and oriented x3, when asked if he was like to have dialysis done he reports he is not sure. Labs reordered including CBC, CMP, urinalysis, PT, CT chest abdomen pelvis ordered. CBC shows no leukocytosis white blood cell count 5.98 RBCs 2.67 hemoglobin 8.1 hematocrit 25.4, this does appear to be at his baseline, PT 11.9 INR 1.2, sodium is 145 potassium 4.3 chloride 113 BUN is 40 creatinine 5.4, GFR is 10.38 glucose 113 calcium 7.5, magnesium 2.9 albumin is 2.2 urinalysis shows greater than 300 protein small blood positive nitrite small leukocyte. CT chest abdomen pelvis without contrast is pending at this time. Upon my review of the exam it does appear that patient has a small pleural effusion which could be worsening fluid overload. [place] [facility] [place] worsening chronic kidney disease and need for fistula to prepare for dialysis. Whitt bag has approximately 200ml urine in bag, there is new urine noted in tube. Instructed senior staff psychologist to empty bag to keep an eye on output. 224: [facility] [place] contacted, CT read not back yet, they are at capacity for medicine level patients, they will call me back with a consult. 2249: Will contact [facility], they are also at capacity, they will have hospitalist call me back. 2318: Spoke with Dr. Mcknight hospitalist at [facility] regarding patient case and details I did discuss his lab results with him. He recommends urine creatinine or urine electrolytes and trending his labs for the next 2 to 3 days with some fluid replacement. He does not feel that dialysis is emergent or imminent at this point. Will page our hospitalist here at [facility] transfer center called back and reports that they do not have availability on the Med/Surg level at this time. FINDINGS: Lungs: Dependent atelectasis. Mild centrilobular emphysema. Pleural spaces: Small bilateral pleural effusions left larger than right. Heart: Heart size is normal. No pericardial effusion. Coronary artery calcifications. Aorta: No aortic aneurysm. Other arteries: Atherosclerotic disease. Lymph nodes: Unremarkable. No enlarged lymph nodes. Bones/joints: Degenerative changes in the spine. Soft tissues: Unremarkable. IMPRESSION: 1. Mild emphysema. 2. Mild bibasilar consolidations which likely represent atelectasis. 3. Small pleural effusions. Tubes, catheters and devices: Penile implant with reservoir in the right inguinal region. Liver: Normal. No mass. Gallbladder and bile ducts: Normal. No calcified stones. No ductal dilation. Pancreas: Fatty infiltration of the pancreas. No ductal dilatation. Spleen: Normal. No splenomegaly. Adrenal glands: Normal. No mass. Kidneys and ureters: No renal stones or hydronephrosis. Stomach and bowel: Moderate stool ball in the rectum. Stomach and small bowel are unremarkable. Appendix: Appendix is not identified. No secondary signs of appendicitis. Intraperitoneal space: There is mild nonspecific fat stranding in the presacral region. . No free air. No significant fluid collection. Vascul ature: Atherosclerotic aorta without aneurysm. Lymph nodes: Unremarkable. No enlarged lymph nodes. Urinary bladder: A suprapubic Whitt catheter is seen within the bladder. Bladder valladares appear thickened similar to the prior study but are not well assessed due to decompression. Reproductive: Unremarkable as visualized. Bones/joints: Osteopenia. Degenerative changes throughout the spine. Soft tissues: Anasarca. IMPRESSION: No acute 2328: Spoke with Dr. Fuentes who is on-call for hospitalist here who recommends giving 100 mg of Lasix now to see if there is any urine output. If there is no urine output she recommends more immediate dialysis if there is urine output she would agree to accept patient for observation. 2344: Spoke again with Dr. Eisenberg from [facility] who additionally recommends a spot protein creatinine ratio and follow-up with patient's family to confirm the want for dialysis. 2348: Call made to patients son Hector, no answer. 0015: Call received from Hector who is patient's son PILAR regarding patient case and details. He was not aware that the patient was transferred ported to the hospital [facility]. I did discuss my plan for admission and possi robyn transfer which he verbalizes understanding and is in agreement with. I did discuss the possible need for dialysis which patient understands and the son understands and is in agreement with it as well at this time if the need arises. 0021: Spoke with Dr. Fuentes patient has had a approximately 150 cc of urine output noted she agrees to accept patient for admission. Plan is to have patient admitted. He has remained hemodynamically stable here in the department and is hemodynamically stable at the time of this dictation. HPI General Mode of arrival: EMS . Date/Time Provider Initiated Documentation: 07/16/21 20:21 . Limitations to Documentation: no limitations . Information obtained by: patient, RN/MD ([facility]), EMS, RN notes reviewed and old records reviewed . HPI Narrative: 75-year-old male presents to the ER via EMS with a chief complaint of elevated creatinine which was obtained today from rehab. Patient denies any symptoms however he does mention intermittent nausea. He denies any vomiting or diarrhea denies any fever or chills. He does have some expiratory wheezing noted and a congested cough. He has a past medical history of type 2 diabetes, chronic kidney disease, Oswald's esophagus, atrial fibrillation, seizure disorder, coronary artery disease, GERD, hyperlipidemia he has an indwelling suprapubic catheter, seizure and sleep apnea. He is alert and oriented x3, when asked if he was like to have dialysis done he reports he is not sure. Related Data Home Medications Medication Instructions Recorded Confirmed multivitamin 1 tab PO DAILY 02/08/15 07/16/21 sertraline 100 mg tablet 100 mg PO DAILY 02/08/15 07/16/21 atorvastatin 40 mg tablet (Lipitor) 80 mg PO HS tab 10/18/17 07/16/21 albuterol sulfate 90 mcg/actuation 2 puff INHALATION Q6H PRN 12/04/18 07/16/21 aerosol inhaler (ProAir HFA) diltiazem HCl 240 mg 240 mg PO DAILY 12/04/18 07/16/21 capsule,extended release 24 hr, controlled (DILT-XR) fluticasone 250 mcg-salmeterol 50 1 inh INHALATION BID 12/04/18 07/16/21 mcg/dose blistr powdr for inhalation (Advair Diskus) melatonin 3 mg tablet 5 mg PO HS PRN 12/04/18 07/16/21 magnesium oxide 400 mg PO DAILY 05/18/19 07/16/21 tramadol 50 mg tablet 25 mg PO Q8H PRN tab 01/10/20 07/16/21 acetaminophen 325 mg tablet 650 mg PO Q4H PRN PRN 05/19/20 07/16/21 metoprolol succinate 25 mg 12.5 mg PO DAILY 05/23/20 07/16/21 tablet,extended release 24 hr rivaroxaban 15 mg tablet (Xarelto) 10 mg PO DAILY@1800 #0 tab 05/27/20 07/16/21 sucralfate 1 gram tablet 1 g PO AC & HS #120 tab 05/27/20 07/16/21 insulin aspart U-100 100 unit/mL See Rx Instructions SUBCUT .COMPLEX 07/10/20 07/16/21 (3 mL) subcutaneous pen (Novolog Flexpen U-100 Insulin aspart) insulin glargine 100 unit/mL (3 15 unit SUBCUT DAILY ml 07/10/20 07/16/21 mL) subcutaneous pen (Lantus Solostar U-100 Insulin) bisacodyl 10 mg rectal suppository 10 mg DC PRN PRN 10/04/20 07/16/21 (Dulcolax (bisacodyl)) dextrose 40 % oral gel (Glucose 15 g PO Q15M PRN 10/04/20 07/16/21 Gel) glucagon HCl 1 mg solution for 1 mg IM PRN PRN 10/04/20 07/16/21 injection (Glucagon (HCl) Emergency Kit) magnesium hydroxide 400 mg/5 mL 400 mg PO DAILY PRN 10/04/20 07/16/21 oral suspension (Milk of Magnesia) sodium phosphates 19 gram-7 118 ml DC PRN PRN 10/04/20 07/16/21 gram/118 mL enema (Fleet Enema) albuterol sulfate 0.63 mg/3 mL 0.63 mg INHALATION Q6H PRN 07/16/21 07/16/21 solution for nebulization ascorbic acid (vitamin C) 250 mg 500 mg PO DAILY 07/16/21 07/16/21 tablet cholecalciferol (vitamin D3) 25 50 mcg PO DAILY 07/16/21 07/16/21 mcg (1,000 unit) tablet levetiracetam 100 mg/mL oral 750 mg PO BID 07/16/21 07/16/21 solution ondansetron HCl 4 mg tablet 4 mg PO AC 07/16/21 07/16/21 zinc 50 mg tablet 50 mg PO DAILY 07/16/21 07/16/21 Previous Rx's Medication Instructions Recorded atorvastatin 40 mg tablet (Lipitor) 80 mg PO HS tab 10/18/17 rivaroxaban 15 mg tablet (Xarelto) 10 mg PO DAILY@1800 #0 tab 05/27/20 sucralfate 1 gram tablet 1 g PO AC & HS #120 tab 05/27/20 Allergies Allergy/AdvReac Type Severity Reaction Status Date / Time No Known Allergies Allergy Unverified 07/16/21 21:19 General Stated Complaint: GenMedical KAELA: 3 Review of Systems All systems reviewed & are unremarkable except as noted in HPI and below Gastrointestinal Gastrointestinal: Denies abdominal pain, Denies diarrhea, Reports nausea and Denies vomiting Genitourinary Genitourinary: Reports as per HPI and Reports other (Has an indwelling suprapubic catheter which appears to be draining at this ) PFSH All Active Problems (Updated 07/17/21 @ 14:12 by Yoselyn Hdz MD) Afib (Chronic) AMS (altered mental status) (Acute) Acute renal failure (Acute) Elevated serum creatinine (Acute) Urethral erosion by catheter (Acute) Mental status alteration (Acute) Diabetes type 2, controlled (Chronic) Renal insufficiency (Chronic) Discharge planning issues (Acute) Seizure disorder (Chronic) UTI (urinary tract infection) (Acute) Acute kidney injury superimposed on chronic kidney disease (Acute) DVT prophylaxis (Acute) Discharge planning issues (Acute) Babinski reflex (Acute) Paroxysmal atrial fibrillation (Chronic) Vascular dementia (Chronic) Difficulty in swallowing (Acute) Thrush (Acute) DVT prophylaxis (Acute) Discharge planning issues (Acute) Weakness on left side of face (Acute) Palliative care patient (Acute) DNR (do not resuscitate) (Acute) Whitt catheter problem (Acute) Orthostatic hypotension (Acute) Near syncope (Acute) Urinary retention (Acute) CKD (chronic kidney disease) (Chronic) COPD (chronic obstructive pulmonary disease) (Chronic) Cerebrovascular disease (Chronic) CVA Medical History (Updated 07/17/21 @ 14:12 by Yoselyn Hdz MD) Acute exacerbation of chronic obstructive pulmonary disease (COPD) Acute respiratory failure with hypoxia Atrial fibrillation with rapid ventricular response [place] esophagus 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 Diabetes Diabetic gastroenteropathy Difficulty in walking Dysarthria GERD (gastroesophageal reflux disease) Hemiplegia affecting left nondominant side HTN (hypertension) Hyperlipidemia Hypertensive emergency Indwelling urinary catheter present Major depressive disorder Seizure on Keppra Sepsis Sleep apnea Spell of abnormal behavior Spell of altered cognition Spells of trembling Syncope Urinary retention Urinary tract infection Vasovagal syncope Vomiting Surgical History EGD - MAC (07/28/16) Hx of cataract surgery S/P insertion of penile implant S/P prostatectomy Social History Smoking/Tobacco Use Status: Former Tobacco Use Smoking risk assessment performed?: Yes Alcohol Intake: former Drug use: Never Substance use type: does not use Details: No alcohol in the last 4 or 5 years. 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 What is your relationship status?: Panel score (0-1 are the most socially isolated patients): 0 Seatbelt use: never Do you feel safe at home: Yes Do you feel safe in your relationship?: Yes Exam Const General: cooperative, comfortable, well developed, well groomed and frail appearing Nutritional Appearance: average body habitus Orientation: alert, awake and oriented x3 HENMT Mouth: mucous membranes dry and moist mucous membranes abnormal (Dry) Teeth and gingiva: poor dentition Resp Effort & Inspection: able to speak in complete sentences and audible wheezes Auscultation: wheezes expiratory wheezes and scattered wheezes Cardio Rate: regular rate GI Palpation: soft, no guarding and nontender General: other (Indwelling Suprapubic catheter without surrounding erythema) Skin Rashes: no rashes Neuro General: patient alert and patient awake Cranial Nerves: tongue midline Cognition: normal cognition Speech: speech normal Motor: muscle tone normal throughout Sensory Exam: no sensory deficits noted Course Vital Signs Vital signs: Vital Signs Temperature 36.8 C 07/16/21 20:13 Pulse 73 07/16/21 20:13 Respiratory Rate 12 07/16/21 20:13 Blood Pressure 154/95 H 07/16/21 20:13 Pulse Oximetry 98 07/16/21 20:13 Temperature 36.8 C 07/16/21 20:13 Temperature Source Temporal Artery Scan 07/16/21 20:13 Pulse 73 07/16/21 20:13 Respiratory Rate 12 07/16/21 20:18 Respiratory Effort Non-Labored 07/16/21 20:18 Respiratory Depth Normal 07/16/21 20:18 Respiratory Pattern Normal 07/16/21 20:18 Blood Pressure 154/95 H 07/16/21 20:13 Blood Pressure Position Sitting 07/16/21 20:13 Pulse Oximetry 98 07/16/21 20:13 Oxygen Delivery Method Room Air 07/16/21 20:13 Oxygen Flow Rate 0 07/16/21 20:13 Pain Level 0 07/16/21 20:13
[2021-07-16 21:11] LABS: Abs Immature Grans 0.02 10^3/uL (0.0-0.06); Absolute Basophil Count 0.02 10^3/uL (0.0-0.2); Absolute Eosinophil Count 0.25 10^3/uL (0.0-0.7); Absolute Lymphocyte Count 1.52 10^3/uL (1.2-3.4); Absolute Monocyte Count 0.43 10^3/uL (0.1-0.8); Absolute Neutrophil Count 3.74 10^3/uL (1.2-6.7); Basophils % 0.3; Eosinophils % 4.2; HCT 25.4 % (40.0-50.0); HGB 8.1 g/dL (13.5-17.5); Immature Grans % 0.3; Lymphocytes % 25.4; MCH 30.3 pg (27.0-33.0); MCHC 31.9 % (32.0-36.0); MCV 95.1 fL (80-95); MPV 10.6 fL (8.0-11.0); Monocytes % 7.2; Neutrophils % 62.6; Nucleated RBC 0 %; Platelet Count 232 10^3/uL (130-400); RBC 2.67 10^6/uL (4.36-5.78); RDW 14.4 % (11.8-14.1); RDW-SD 49.7 fL; WBC 5.98 10^3/uL (4.4-10.8)
[2021-07-16] MEDS: Normal Saline 500 ML IV (21:12)
[2021-07-16 21:22] LABS: ALT 17 U/L (16-63); AST 16 U/L (15-37); Albumin 2.2 g/dL (3.4-5.0); Alkaline Phosphatase 87 U/L (46-116); BUN 40 mg/dL (7-18); Bilirubin, Total 0.2 mg/dL (0.2-1.0); Calcium 7.5 mg/dL (8.5-10.1); Chloride 113 mmol/L (98-107); Estimated GFR 10.38 (mL/min/1.73m2); Glucose 113 mg/dL (74-106); Magnesium 2.9 mg/dL (1.8-2.4); Potassium 4.3 mmol/L (3.5-5.1); Sodium 145 mmol/L (136-145); Total Protein 5.1 g/dL (6.4-8.2)
[2021-07-16 21:23] LABS: INR 1.2 (0.9-1.1); Prothrombin Time 11.9 sec (9.3-11.0)
[2021-07-16 21:24] LABS: CREATININE 5.4 mg/dL (0.70-1.30)
[2021-07-16 21:28] LABS: Bilirubin Negative (Negative); Blood Small (Negative); Clarity Cloudy (Clear); Glucose 100 mg/dL (Negative); Ketones Negative (Negative); Leukocyte Esterase Small (Negative); Nitrite Positive (Negative); Specific Gravity 1.025 (1.005-1.025); Urobilinogen 0.2 EU/dL (Up TO 0.2); pH 6.5 (5-8)
[2021-07-16 21:50] LABS: WBC >50 HPF (0-5)
[2021-07-16 21:52] LABS: Bacteria Packed HPF (Negative); C & S Indicated? Yes; Crystals Many Amorphous HPF (Negative); Epithelial Cells Moderate HPF (Negative)
[2021-07-16] MEDS: Normal Saline 1,000 ML 150 ML IV (22:51)
--- NOTE | 2021-07-16 23:00 | DI.VRAD_ITS ---
PROCEDURE INFORMATION: Exam: CT Chest Without Contrast; Diagnostic Exam date and time: 07/16/2021 9:25 PM Age: 75 years old Clinical indication: Other: Eval kidneys gfr 10; Other: R/O pneumonia; Additional info: R/O pneumonia , eval kidneys gfr 10 TECHNIQUE: Imaging protocol: Diagnostic computed tomography of the chest without contrast. COMPARISON: 1. CT CHEST/ABD/PEL WO 05/19/2020 10:30 PM 2. CR XR ABDOMEN FLAT PLATE 03/07/2021 2:07 PM FINDINGS: Lungs: Dependent atelectasis. Mild centrilobular emphysema. Pleural spaces: Small bilateral pleural effusions left larger than right. Heart: Heart size is normal. No pericardial effusion. Coronary artery calcifications. Aorta: No aortic aneurysm. Other arteries: Atherosclerotic disease. Lymph nodes: Unremarkable. No enlarged lymph nodes. Bones/joints: Degenerative changes in the spine. Soft tissues: Unremarkable. IMPRESSION: 1. Mild emphysema. 2. Mild bibasilar consolidations which likely represent atelectasis. 3. Small pleural effusions. PROCEDURE INFORMATION: Exam: CT Abdomen And Pelvis Without Contrast Exam date and time: 07/16/2021 9:25 PM Age: 75 years old Clinical indication: Other: Eval kidneys gfr 10; Other: R/O pneumonia; Additional info: R/O pneumonia , eval kidneys gfr 10 TECHNIQUE: Imaging protocol: Computed tomography of the abdomen and pelvis without contrast. Radiation optimization: All CT scans at this facility use at least one of these dose optimization techniques: automated exposure control; mA and/or kV adjustment per patient size (includes targeted exams where dose is matched to clinical indication); or iterative reconstruction. COMPARISON: 1. CT CHEST/ABD/PEL WO 05/19/2020 10:30 PM 2. CR XR ABDOMEN FLAT PLATE 03/07/2021 2:07 PM FINDINGS: Tubes, catheters and devices: Penile implant with reservoir in the right inguinal region. Liver: Normal. No mass. Gallbladder and bile ducts: Normal. No calcified stones. No ductal dilation. Pancreas: Fatty infiltration of the pancreas. No ductal dilatation. Spleen: Normal. No splenomegaly. Adrenal glands: Normal. No mass. Kidneys and ureters: No renal stones or hydronephrosis. Stomach and bowel: Moderate stool ball in the rectum. Stomach and small bowel are unremarkable. Appendix: Appendix is not identified. No secondary signs of appendicitis. Intraperitoneal space: There is mild nonspecific fat stranding in the presacral region. . No free air. No significant fluid collection. Vasculature: Atherosclerotic aorta without aneurysm. Lymph nodes: Unremarkable. No enlarged lymph nodes. Urinary bladder: A suprapubic Whitt catheter is seen within the bladder. Bladder valladares appear thickened similar to the prior study but are not well assessed due to decompression. Reproductive: Unremarkable as visualized. Bones/joints: Osteopenia. Degenerative changes throughout the spine. Soft tissues: Anasarca. IMPRESSION: No acute findings. Dictated and Authenticated by: Loreta Mcknight MD. Ordering:CHARLES Coleman MD
[2021-07-16 23:34] LABS: Source Nasal/Nares
[2021-07-16 23:35] LABS: COVID-19 PCR Negative (Negative)
[2021-07-16] MEDS: Furosemide 100 MG/10 ML VIAL 80 MG IVP (23:39)
[2021-07-16] MEDS: cefTRIAXone 1 GM/50 ML BAG IVPB (23:39)
[2021-07-17] VITALS (128 sets, daily range): BP systolic 120–189; BP diastolic 57–156; PULSE 57–78; RESP 11–23; TEMP 36.5–37.3; O2SAT 94–100
--- NOTE | 2021-07-17 | DI.US_ITS ---
APPROVED REPORT EXAM: Comprehensive 2D, Doppler, and color-flow Echocardiogram Patient Location: In-Patient Room/Bed: [id number] Tree Sapper: Jennifer Poole RDCS (AE) Indications: Pulmonary HTN CHF, A Fib Other Information Study Quality: Adequate. Technically limited study due to inability to position patient. Conclusion Normal left ventricular wall thickness and chamber size. Estimated ejection fraction is 60%. Wall m otion is normal Normal right ventricular size and systolic function The atria are normal in size The aortic valve is trileaflet and sclerotic without stenosis or regurgitation Mildly thickened mitral leaflets. Trace to mild mitral regurgitation Normal tricuspid valve with trace regurgitation. Estimated right ventricular systolic pressure is no rmal at 24 mmHg Wall motion Left Ventricle The left ventricle is normal size. The left ventricular systolic function is normal. The left ventric ular ejection fraction is within the normal range. There is normal left ventricular wall thickness. T here is normal LV segmental wall motion. There is no ventricular septal defect visualized. LVEF is 60 %. Right Ventricle The right ventricle is normal size. The right ventricular systolic function is normal. The RVSP is 24 .1 mmHg. Atria The left atrium size is normal. The right atrium size is normal. The interatrial septum is intact wit h no evidence for an atrial septal defect. Aortic Valve The Aortic valve is sclerotic. Aortic valve is trileaflet. There is no aortic valvular stenosis. No a ortic regurgitation is present. Mitral Valve Mitral valve leaflets are mildly thickened. No evidence of mitral valve stenosis. Trace to mild bird l regurgitation. Tricuspid Valve The tricuspid valve is normal in structure. There is no tricuspid valve stenosis. Trace tricuspid reg urgitation. Pulmonic Valve The pulmonary valve is normal in structure. There is no pulmonic valvular stenosis. There is no pulmo robert valvular regurgitation. Great Vessels The aortic root is normal in size. The ascending aorta is normal in size. Aortic arch is not well vis ualized. IVC is normal in size and collapses >50% with inspiration. Pericardium There is no pericardial effusion. 2D Dimensions IVSD d PLAX 1.00 cm M: 0.6-1.2 LV Vol A2C d MOD 124.3 mL LVPW d PLAX 1.04 cm M: 0.6 - 1.2 LV Vol A4C d MOD 129.5 mL LVID d PLAX 4.94 cm M: 4.2 - 5.8 LA vol/ BSA A4C s A-L 25.0 mL/m2 LVDs 3.40 cm M: 2.5 - 4.0 LA Area A4C s MOD 17.52 cm2 Ao Root d 3.01 cm M: 3.1 - 3.7 LV EF A4C MOD 60.2 % RA Area A4C 14.79 cm2 LV EF A2C MOD 60.2 % RA Vol/ BSA A4C s A-L 20.6 mL/m2 LV EF Biplane MOD 60.4 % Ao Asc Diam d 3.10 cm M: 2.6 - 3.4 SV 80.55 mL LV EF Teichholz 57.4 % SV Index 40.72 mL/m2 LVEF (Olivarez's) 60.44 % M: 52 - 72 LV Volume 100.32 mL M: 62 - 150 LV Volume Index 50.92 mL/m2 M: 34 - 74 LV Vol Biplane MOD 133.3 mL FS 30.25 % M-Mode TAPSE 2.67 cm (M/F) >1.7 LV Diastology MV E' medial 0.051 (>0.07 m/s) E/A Ratio 1.0 LV E/e MED 17.25 (<14) MV E Vmax 0.87 (0.4-1.3 m/s) MV E' lateral 0.068 (>0.1 m/s) MV A Vmax 0.90 (0.4-1.3 m/s) LV E/e LAT 12.70 (<14) MV E/A Ratio 0.92 MV E/E' medial 17.26 MV E/E' lateral 12.74 Aortic Valve LVOT Area 3.08 cm2 AoV Area Vmax 2.25 cm2 LVOT Vmax 1.07 m/s AoV Area/ BSA (Vmax) 1.14 cm2/m2 LVOT Mean Alistair. 0.73 m/s ROSS Mean Alistair. 2.15 cm2 LVOT Peak Grad 4.6 mmHg ROSS Mean Alistair. Index 1.09 cm2/m2 LVOT Mean Grad 2.4 mmHg LVOT VTI 0.254 m LVOT Diam s 1.95 cm AoV Vmax 1.46 m/s Velocity Ratio 0.73 AoV Mean Alistair. 1.04 m/s AoV Peak Grad 8.5 mmHg LVOT SV 78.05 mL AoV Mean Grad 4.9 mmHg AoV VTI 0.334 m AoV Area VTI 2.33 cm2 AoV Area/ BSA (VTI) 1.18 cm/m2 Mitral Valve MV DT 291 (160-240 msec) MV PHT 85 msec MV Area PHT 2.60 cm2 MV VTI 0.348 m MV Area VTI 2.24 (4.0-6.0 cm2) Pulmonary Valve PV Vmax 1.07 (0.5-1.5 m/s) RVOT Peak Gr. 4.18 mmHg PV Peak Grad 4.6 mmHg RVOT Mean Gr. 2.10 mmHg PV Mean Grad 2.4 mmHg RVOT VTI 0.241 m PV VTI 0.261 m RVOT Vmax 1.02 m/s Tricuspid Valve TR Peak Grad 21.1 mmHg TR Vmax 2.30 m/s RA Pressure 3.00 mmHg RVSP (TR) 24.1 mmHg
--- NOTE | 2021-07-17 | DI.CT_ITS ---
Exam(s) CT HEAD WO EXAM: CT HEAD WO CLINICAL HISTORY: R facial droop. TECHNIQUE: Imaging Protocol: Axial computed tomography images with coronal and sagittal reformatted images were created and reviewed COMPARISON: CT CT HEAD CERVICAL SPINE WO from 06/26/2020 FINDINGS: Ventricles and Extra axial spaces: Normal in size and morphology for the patient's age. Hemorrhage: None. Cerebral parenchyma: No acute territorial infarct is present. There are areas of decreased attenuati on in the white matter consistent with small vessel ischemic disease. Old bilateral lacunar infarcts are present. Midline shift: None. Brainstem/Cerebellum: Normal. Calvarium: Normal. Visualized Paranasal sinuses/Mastoids: There is opacification of a few ethmoid air cells bilaterally. There is also opacification of the right mastoid air cells. The remaining visualized paranasal sin uses and mastoid air cells are clear. Soft Tissues: Unremarkable. IMPRESSION: No acute intracranial process. RADIATION DOSE DELIVERED: 808.46mGy.cm Total DLP DATA REPOSITORY: All CT scans at this facility are submitted to the National Radiology Data Registry (NRDR) Dose Index Registry (DIR) with the [employer] (ACR). RADIATION OPTIMIZATION: All CT scans at this facility use at least one of these dose optimization te chniques: automated exposure control; mA and/or kV adjustment per patient size (includes targeted exa ms where dose is matched to clinical indication); or iterative reconstruction.
--- NOTE | 2021-07-17 00:15 | HPE_ITS ---
Date of service: 07/17/21 Time of Service: 00:44 Assessment and Plan Assessment and plan (1) Acute renal failure: Status: Acute Assessment and plan: This is a 75 yo man who presents from rehab with acute renal failure on underlying CKD. He was able to produce urine output with a Lasix trial and so is safe for admission in an attempt to avoid dialysis, although the ED provider discussed this with the son who beleives his father would want this if needed. His vitals are normal and he tubbs not have acidemia nor electrolyte abnormalities. - s/p 100mg Lasix in ED - will plan for another 100mg Lasix in am - holding BP, HR, insulin and nephrogenic meds until Cr repeated - strict I/O's every 2 hours - spot urine Cr and protein - urine sodium, urine urea (2) Urethral erosion by catheter: Status: Acute (3) Diabetes type 2, controlled: Status: Chronic Assessment and plan: He is insuline dependant and on oral. I am holding these given the renal dysfunction but do have him on a sliding scale. As insulin is excreted through the kidneys, it tends to stick around much longer in an LUISA, therefore I am being very concervative with insulin treatment and will allow for permissive hyperglycemia. - SSI only for now - holding oral med and home Lantus for now Qualifiers: Diabetes mellitus complication status: with unspecified complications Diabetes mellitus assisted insulin use: with assisted use Qualified Code(s): E11.8 - Type 2 diabetes mellitus with unspecified complications; Z79.4 - MCC (current) use of insulin (4) Seizure disorder: Status: Chronic Assessment and plan: - continue home keppra (5) UTI (urinary tract infection): Status: Acute Assessment and plan: - ceftriaxone 1g daily - urine culture pending Qualifiers: Hematuria presence: without hematuria Urinary tract infection type: site unspecified Qualified Code(s): N39.0 - Urinary tract infection, site not specified (6) Nausea: Status: Resolved Assessment and plan: - zofran prn (7) Paroxysmal atrial fibrillation: Status: Chronic Assessment and plan: - holding Xarelto given ARF - on just for A. fib (8) COPD (chronic obstructive pulmonary disease): Status: Chronic Assessment and plan: not in exacerbation, will continue home regimen (9) CKD (chronic kidney disease): Status: Chronic History of Present Illness Narrative: This is a 75 yo man with type 2 diabetes, chronic kidney disease, Oswald's esophagus, atrial fibrillation (on Xarelto), seizure disorder, coronary artery disease, GERD, hyperlipidemia he has an indwelling suprapubic catheter, seizure and sleep apnea. He presents from rehab, found to have acute renal failure on CKD. He denied any symptoms, but rather this was found on routine bloodwork. He has a suprapubic catheter due to a previous urethral ulcer and he does have a penile implant. He arrived in the ED with 200cc of urine in his bag, with an unknown amount of time since it was last emptied. Both [facility] and [facility] were called given the potential need for dialysis. [facility] was at capacity. [facility] hospitalist did not feel as though dialysis was imminent. I have concerns given an unknown UOP, the fact that creatinine lags behind UOP and his underlying CKD. The ED had given a fluid challenge already without much response. I requested the ED give him 100mg of Lasix and to assess for response. Shortly after receiving the Lasix he did put out 150cc of urine. This plus his normal vitals signs, normal potassium and no criteria for urgent dialysis met, I accepted the patient for admission. He had abdominal imagining which did not show any hydronephrosis or other obstructive pathology. He does have a UTI on UA. On my assessment, he is pleasantly confused. He denies any pain or breathing troubles. Overnight we put out 1L of normal appearing urine. Review of Systems All systems reviewed & are unremarkable except as noted in HPI and below PFSH All Active Problems (Updated 07/17/21 @ 00:56 by Claire Merritt MD) Acute renal failure (Acute) Elevated serum creatinine (Acute) Urethral erosion by catheter (Acute) Mental status alteration (Acute) Diabetes type 2, controlled (Chronic) Renal insufficiency (Chronic) Discharge planning issues (Acute) Seizure disorder (Chronic) UTI (urinary tract infection) (Acute) Acute kidney injury superimposed on chronic kidney disease (Acute) DVT prophylaxis (Acute) Discharge planning issues (Acute) Babinski reflex (Acute) Paroxysmal atrial fibrillation (Chronic) Vascular dementia (Chronic) Difficulty in swallowing (Acute) Thrush (Acute) DVT prophylaxis (Acute) Discharge planning issues (Acute) Weakness on left side of face (Acute) Palliative care patient (Acute) DNR (do not resuscitate) (Acute) Whitt catheter problem (Acute) Orthostatic hypotension (Acute) Near syncope (Acute) Urinary retention (Acute) CKD (chronic kidney disease) (Chronic) COPD (chronic obstructive pulmonary disease) (Chronic) Cerebrovascular disease (Chronic) CVA Medical History (Updated 07/17/21 @ 00:56 by Claire Merritt MD) Acute exacerbation of chronic obstructive pulmonary disease (COPD) Acute respiratory failure with hypoxia Atrial fibrillation with rapid ventricular response 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 Diabetes Diabetic gastroenteropathy Difficulty in walking Dysarthria GERD (gastroesophageal reflux disease) Hemiplegia affecting left nondominant side HTN (hypertension) Hyperlipidemia Hypertensive emergency Indwelling urinary catheter present Major depressive disorder Seizure on Keppra Sepsis Sleep apnea Spell of abnormal behavior Spell of altered cognition Spells of trembling Syncope Urinary retention Urinary tract infection Vasovagal syncope Vomiting Surgical History EGD - MAC (07/28/16) Hx of cataract surgery S/P insertion of penile implant S/P prostatectomy Social History Smoking/Tobacco Use Status: Former Tobacco Use Smoking risk assessment performed?: Yes Alcohol Intake: former Drug use: Never Substance use type: does not use Details: No alcohol in the last 4 or 5 years. 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 What is your relationship status?: Panel score (0-1 are the most socially isolated patients): 0 Seatbelt use: never Do you feel safe at home: Yes Do you feel safe in your relationship?: Yes Meds Allergies and Home Medications Allergies Allergy/AdvReac Type Severity Reaction Status Date / Time No Known Allergies Allergy Unverified 07/16/21 21:19 Home Medications Medication Instructions Recorded Confirmed Type multivitamin 1 tab PO DAILY 02/08/15 07/16/21 History sertraline 100 mg tablet 100 mg PO DAILY 02/08/15 07/16/21 History atorvastatin 40 mg tablet (Lipitor) 80 mg PO HS tab 10/18/17 07/16/21 Rx albuterol sulfate 90 mcg/actuation 2 puff INHALATION Q6H PRN 12/04/18 07/16/21 History aerosol inhaler (ProAir HFA) diltiazem HCl 240 mg 240 mg PO DAILY 12/04/18 07/16/21 History capsule,extended release 24 hr, controlled (DILT-XR) finasteride 5 mg tablet 5 mg PO DAILY 12/04/18 12/13/20 History fluticasone 250 mcg-salmeterol 50 1 inh INHALATION BID 12/04/18 07/16/21 History mcg/dose blistr powdr for inhalation (Advair Diskus) melatonin 3 mg tablet 5 mg PO HS PRN 12/04/18 07/16/21 History tamsulosin 0.4 mg capsule 0.8 mg PO DAILY #60 cap 12/06/18 12/13/20 Rx magnesium oxide 400 mg PO DAILY 05/18/19 07/16/21 History levetiracetam 750 mg tablet 750 mg PO BID 01/10/20 12/13/20 History tramadol 50 mg tablet 25 mg PO Q8H PRN tab 01/10/20 07/16/21 History acetaminophen 325 mg tablet 650 mg PO Q4H PRN PRN 05/19/20 07/16/21 History oxybutynin chloride 5 mg tablet 5 mg PO BID 05/19/20 12/13/20 History metoprolol succinate 25 mg 12.5 mg PO DAILY 05/23/20 07/16/21 History tablet,extended release 24 hr rivaroxaban 15 mg tablet (Xarelto) 10 mg PO DAILY@1800 #0 tab 05/27/20 07/16/21 Rx sucralfate 1 gram tablet 1 g PO AC & HS #120 tab 05/27/20 07/16/21 Rx insulin aspart U-100 100 unit/mL See Rx Instructions SUBCUT .COMPLEX 07/10/20 07/16/21 History (3 mL) subcutaneous pen (Novolog Flexpen U-100 Insulin aspart) insulin glargine 100 unit/mL (3 15 unit SUBCUT DAILY ml 07/10/20 07/16/21 History mL) subcutaneous pen (Lantus Solostar U-100 Insulin) bisacodyl 10 mg rectal suppository 10 mg VT PRN PRN 10/04/20 07/16/21 History (Dulcolax (bisacodyl)) dextrose 40 % oral gel (Glucose 15 g PO Q15M PRN 10/04/20 07/16/21 History Gel) donepezil 5 mg tablet 5 mg PO DAILY 10/04/20 12/13/20 History glucagon HCl 1 mg solution for 1 mg IM PRN PRN 10/04/20 07/16/21 History injection (Glucagon (HCl) Emergency Kit) magnesium hydroxide 400 mg/5 mL 400 mg PO DAILY PRN 10/04/20 07/16/21 History oral suspension (Milk of Magnesia) sodium phosphates 19 gram-7 118 ml VT PRN PRN 10/04/20 07/16/21 History gram/118 mL enema (Fleet Enema) sertraline 25 mg tablet 25 mg PO DAILY 11/13/20 07/16/21 History prednisolone sodium phosphate 1 1 drp OPHTHALMIC (EYE) QAM 12/13/20 12/13/20 History %-moxifloxacin 0.5 % eye drops albuterol sulfate 0.63 mg/3 mL 0.63 mg INHALATION Q6H PRN 07/16/21 07/16/21 History solution for nebulization ascorbic acid (vitamin C) 250 mg 500 mg PO DAILY 07/16/21 07/16/21 History tablet cholecalciferol (vitamin D3) 25 50 mcg PO DAILY 07/16/21 07/16/21 History mcg (1,000 unit) tablet levetiracetam 100 mg/mL oral 750 mg PO BID 07/16/21 07/16/21 History solution ondansetron HCl 4 mg tablet 4 mg PO AC 07/16/21 07/16/21 History zinc 50 mg tablet 50 mg PO DAILY 07/16/21 07/16/21 History Exam Narrative Exam Narrative: Gen: NAD, normal respiratory effort, well-nourished HENT: PERRL Chest: No respiratory distress, normal appearance of chest, clear to auscultation bilaterally, no crackles or wheezes, normal inspiratory effort Heart: regular rate and rhythym, no murmurs, rubs or gallops Abdomen: Non-distended, soft, non tender, suprapubic catheter present with clean base and no erythema Extremities: No clubbing, edema, cyanosis, rashes Neuro: confused, non focal Psych: cooperative, appropriate mental affect Results Labs Result diagrams: 07/17/21 06:10 07/17/21 06:10 Labs: Laboratory Results - last 24 hr 07/16/21 07/16/21 07/16/21 20:45 20:45 20:45 WBC 5.98 RBC 2.67 L Hgb 8.1 L Hct 25.4 L MCV 95.1 H MCH 30.3 MCHC 31.9 L RDW 14.4 H Plt Count 232 MPV 10.6 Immature Gran % 0.3 Neutrophils % 62.6 Lymphocytes % 25.4 Monocytes % 7.2 Eosinophils % 4.2 Basophils % 0.3 Nucleated RBC % 0 Absolute Neutrophils 3.74 Absolute Lymphocytes 1.52 Absolute Monocytes 0.43 Absolute Eosinophils 0.25 Absolute Basophils 0.02 PT 11.9 H INR 1.2 H Sodium 145 Potassium 4.3 Chloride 113 H Carbon Dioxide 25.0 Anion Gap 7.0 BUN 40 H Creatinine 5.4 H* Estimated GFR/1.73 m2 10.38 Glucose 113 H Calcium 7.5 L Magnesium 2.9 H Iron TIBC Transferrin % Sat Ferritin Total Bilirubin 0.2 AST 16 ALT 17 Alkaline Phosphatase 87 Total Protein 5.1 L Albumin 2.2 L Urine Color Urine Clarity Urine pH Ur Specific [place] Urine Protein Urine Ketones Urine Blood Urine Nitrite Urine Bilirubin Urine Urobilinogen Ur Leukocyte Esterase Urine RBC Urine WBC Ur Epithelial Cells Urine Crystals Urine Bacteria Urine Mucus Ur Culture Indicated? Urine Glucose COVID-19 Source SARS-CoV-2 (PCR) 07/16/21 07/16/21 07/16/21 21:13 22:50 23:55 WBC RBC Hgb Hct MCV MCH MCHC RDW Plt Count MPV Immature Gran % Neutrophils % Lymphocytes % Monocytes % Eosinophils % Basophils % Nucleated RBC % Absolute Neutrophils Absolute Lymphocytes Absolute Monocytes Absolute Eosinophils Absolute Basophils PT INR Sodium Potassium Chloride Carbon Dioxide Anion Gap BUN Creatinine Estimated GFR/1.73 m2 Glucose Calcium Magnesium Iron Cancelled TIBC Cancelled Transferrin % Sat Cancelled Ferritin Total Bilirubin AST ALT Alkaline Phosphatase Total Protein Albumin Urine Color Yellow Urine Clarity Cloudy Urine pH 6.5 Ur Specific [place] 1.025 Urine Protein >=300 H Urine Ketones Negative Urine Blood Small H Urine Nitrite Positive H Urine Bilirubin Negative Urine Urobilinogen 0.2 Ur Leukocyte Esterase Small H Urine RBC Urine WBC >50 H Ur Epithelial Cells Moderate Urine Crystals Many Amorphous Urine Bacteria Packed Urine Mucus Not Applicable Ur Culture Indicated? Yes Urine Glucose 100 COVID-19 Source Nasal/Nares SARS-CoV-2 (PCR) Negative 07/16/21 23:55 WBC RBC Hgb Hct MCV MCH MCHC RDW Plt Count MPV Immature Gran % Neutrophils % Lymphocytes % Monocytes % Eosinophils % Basophils % Nucleated RBC % Absolute Neutrophils Absolute Lymphocytes Absolute Monocytes Absolute Eosinophils Absolute Basophils PT INR Sodium Potassium Chloride Carbon Dioxide Anion Gap BUN Creatinine Estimated GFR/1.73 m2 Glucose Calcium Magnesium Iron TIBC Transferrin % Sat Ferritin Cancelled Total Bilirubin AST ALT Alkaline Phosphatase Total Protein Albumin Urine Color Urine Clarity Urine pH Ur Specific [place] Urine Protein Urine Ketones Urine Blood Urine Nitrite Urine Bilirubin Urine Urobilinogen Ur Leukocyte Esterase Urine RBC Urine WBC Ur Epithelial Cells Urine Crystals Urine Bacteria Urine Mucus Ur Culture Indicated? Urine Glucose COVID-19 Source SARS-CoV-2 (PCR) Last Vital Signs Temp 37.0 C 07/16/21 21:41 Pulse 61 07/16/21 21:41 Resp 12 07/16/21 21:41 BP 167/76 H 07/16/21 21:41 Pulse Ox 99 07/16/21 21:41
[2021-07-17 02:10] LABS: Sodium, Urine 138 mmol/L
[2021-07-17 02:11] LABS: Creatinine,Urine 13.79 mg/dL
[2021-07-17 02:12] LABS: PROTEIN 167.8 mg/dL
[2021-07-17 02:13] LABS: COMMENT (LAB VIEW ONLY) 12.91 mg/dL; Prot/Crea Ur Ratio 12.99
[2021-07-17] MEDS: Ondansetron O.D.T. 4 MG TABEF PO (06:03)
[2021-07-17] MEDS: Heparin 5,000 UNITS/ML VIAL 5000 UNITS SC (06:03)
[2021-07-17 07:08] LABS: Abs Immature Grans 0.02 10^3/uL (0.0-0.06); Absolute Basophil Count 0.02 10^3/uL (0.0-0.2); Absolute Eosinophil Count 0.26 10^3/uL (0.0-0.7); Absolute Lymphocyte Count 1.48 10^3/uL (1.2-3.4); Absolute Monocyte Count 0.43 10^3/uL (0.1-0.8); Basophils % 0.3; Eosinophils % 4.3; HCT 25.4 % (40.0-50.0); HGB 8.1 g/dL (13.5-17.5); Immature Grans % 0.3; Lymphocytes % 24.2; MCH 30.6 pg (27.0-33.0); MCHC 31.9 % (32.0-36.0); MCV 95.8 fL (80-95); MPV 10.8 fL (8.0-11.0); Neutrophils % 63.9; Nucleated RBC 0 %; Platelet Count 223 10^3/uL (130-400); RBC 2.65 10^6/uL (4.36-5.78); RDW 14.3 % (11.8-14.1); RDW-SD 49.9 fL; WBC 6.11 10^3/uL (4.4-10.8)
[2021-07-17 07:31] LABS: ALT 14 U/L (16-63); AST 18 U/L (15-37); Albumin 2.1 g/dL (3.4-5.0); Alkaline Phosphatase 89 U/L (46-116); Anion Gap 4.9 mmol/L (3-11); BUN 41 mg/dL (7-18); Bilirubin, Total 0.3 mg/dL (0.2-1.0); CO2 26.1 mmol/L (21.0-32.0); Calcium 7.4 mg/dL (8.5-10.1); Chloride 114 mmol/L (98-107); Estimated GFR 10.84 (mL/min/1.73m2); Glucose 96 mg/dL (74-106); Magnesium 2.9 mg/dL (1.8-2.4); Potassium 3.9 mmol/L (3.5-5.1); Sodium 145 mmol/L (136-145); Total Protein 5.1 g/dL (6.4-8.2)
[2021-07-17 07:36] LABS: CREATININE 5.2 mg/dL (0.70-1.30)
[2021-07-17 07:54] LABS: Lab Add On Test DONE
[2021-07-17 08:08] LABS: Creatine Kinase 54 U/L (39-308)
[2021-07-17] MEDS: levETIRAcetam 500 MG TAB PO (08:33)
[2021-07-17] MEDS: Normal Saline Flush 10 ML SYR IVP (08:33)
[2021-07-17] MEDS: Budesonide/Formoterol 160/4.5 6 GM 60 PUFF INH IH ×2 (09:08→21:37)
--- NOTE | 2021-07-17 09:31 | NUR.NOTE ---
Spoke with vito motley from [facility] about this patient. Med tiesha stated that he is a 2 assist transfer with a walker. I also requested his vaccine records to be faxed over and they agreed to do so. RN notified. Nursing Note:
--- NOTE | 2021-07-17 10:18 | PDOC.CMIN ---
- If Service Date Differs Date of service: 07/17/21 Time of Service: 10:18 Care Management Initial Assess REASON FOR HOSPITALIZATION:: Elevated serum creatnine, CKD PAST MEDICAL HISTORY/PAST SURGICAL HISTORY:: All Active Problems. Acute renal failure (Acute). Elevated serum creatinine (Acute). Urethral erosion by catheter (Acute). Mental status alteration (Acute). Diabetes type 2, controlled (Chronic). Renal insufficiency (Chronic). Discharge planning issues (Acute). Seizure disorder (Chronic). UTI (urinary tract infection) (Acute). Acute kidney injury superimposed on chronic kidney disease (Acute). DVT prophylaxis (Acute). Discharge planning issues (Acute). Babinski reflex (Acute). Paroxysmal atrial fibrillation (Chronic). Vascular dementia (Chronic). Difficulty in swallowing (Acute). Thrush (Acute). DVT prophylaxis (Acute). Discharge planning issues (Acute). Weakness on left side of face (Acute). Palliative care patient (Acute). DNR (do not resuscitate) (Acute). Whitt catheter problem (Acute). Orthostatic hypotension (Acute). Near syncope (Acute). Urinary retention (Acute). CKD (chronic kidney disease) (Chronic). COPD (chronic obstructive pulmonary disease) (Chronic). Cerebrovascular disease (Chronic). CVA. Medical History. Acute exacerbation of chronic obstructive pulmonary disease (COPD). Acute respiratory failure with hypoxia. Atrial fibrillation with rapid ventricular response. Oswald esophagus. Bladder mass. Coronary artery disease with angina pectoris. Diabetes. Diabetic gastroenteropathy. Difficulty in walking. Dysarthria. GERD (gastroesophageal reflux disease). Hemiplegia affecting left nondominant side. HTN (hypertension). Hyperlipidemia. Hypertensive emergency. Indwelling urinary catheter present. Major depressive disorder. Seizure. on Keppra. Sepsis. Sleep apnea. Spell of abnormal behavior. Spell of altered cognition. Spells of trembling. Syncope. Urinary retention. Urinary tract infection. Vasovagal syncope. Vomiting. Surgical History. EGD - MAC (07/28/16). Hx of cataract surgery. S/P insertion of penile implant. S/P prostatectomy PREVIOUS FUNCTIONAL STATUS/SOCIAL/FAMILY SUPPORTS:: Doroteo currently resides at [facility], where he has been since 02/2019. His son, Hector, is supportive and lives locally. His ADL needs are being met at the facility where he lives. CURRENT FUNCTIONAL STATUS:: Ed was having a CT of his head when CM attempted to visit him. Per RN, he became more somnolent and his facial droop appeared worse. MD re evaluated him, and agreed that he was more somnolent, and ordered the CT head, which was negative. Neurology has been consulted, who recommended stroke work up as well as EEG. His son, Hector, visited briefly, but Ed was resting, therefore he did not stay long. Ed will return to [facility] once he is medically cleared by MD. CM will continue to follow. ADVANCE DIRECTIVES:: POLST on file, as well as [facility] AD. Has patient been provided with info about the portal/API?: Yes Did the patient sign up for the portal?: No CODE STATUS:: Full Code CODE STATUS COMMENT:: POLST on file, states DNR. Form provided to MD. INSURANCE COVERAGE / FINANCIAL ISSUES:: [facility] CURRENT HOME/COMMUNITY SERVICES/EQUIPMENT:: Ed lives at [facility]. Per report, he is 2 assist for transfer to a [facility]. PRIMARY CARE PHYSICIAN:: Micah Wu, H&R provider. POTENTIAL DISCHARGE NEEDS:: Coordinated return to [facility] PATIENT/FAMILY EDUCATION NEEDS:: Review discharge instructions and limitations, discussion of self care needs and goals of care. ANTICIPATED BARRIERS TO DISCHARGE:: None identified. TRANSPORTATION:: Via facility w/c van vs EMS, depending on mobility at time of transport. PLAN:: Anticipate Ed will return to [facility] once medically cleared. He will likely transport via facility w/c van, unless EMS is indicated. He will follow up with the facility provider and his discharge plan of care. CM will continue to follow.
--- NOTE | 2021-07-17 10:27 | NUR.NOTE ---
When administering the 100mg of lasix drip, pump stated it was above the hard limit. Called pharmacy and spoke to pharmacist who stated that she confirmed the dose with the doctor and that the pump could be placed in basic mode for medication to be given.
--- NOTE | 2021-07-17 11:05 | NUR.NOTE ---
Called urology to confirm consult had been received. Dr. Amador will be down when time allows. He has patients in the clinic today. We don't have a time frame.
--- NOTE | 2021-07-17 11:32 | PGE_ITS ---
Date of Service Date of service: 07/17/21 Time of Service: 11:32 Subjective Subjective Interval history since last seen: UOP 1750 cc now. The patient did receive IV lasix again this am. He denies dizziness, chest pain, shortness of breath, nausea, abdominal pain. Had an echo - RVSP 24 mmHg, preserved EF. Discussed case with [facility] [place] [facility] nephrology: given the fact that the patient is not very obviously fluid overloaded, recommended stopping diuresis and starting 1/2 NS at 80 cc/hr and monitoring Cr and UOP x 24-48 hrs. Etiology of LUISA is likely ATN. We will review [facility] medication records to ensure he did not get any nephrotoxic drugs. Objective Last Vital Signs Temp 37.3 C 07/17/21 08:00 Pulse 64 07/17/21 08:01 Resp 19 07/17/21 08:50 BP 170/83 H 07/17/21 08:01 Pulse Ox 98 07/17/21 08:50 Laboratory Results - last 24 hr 07/16/21 07/16/21 07/16/21 20:45 20:45 20:45 WBC 5.98 RBC 2.67 L Hgb 8.1 L Hct 25.4 L MCV 95.1 H MCH 30.3 MCHC 31.9 L RDW 14.4 H Plt Count 232 MPV 10.6 Immature Gran % 0.3 Neutrophils % 62.6 Lymphocytes % 25.4 Monocytes % 7.2 Eosinophils % 4.2 Basophils % 0.3 Nucleated RBC % 0 Absolute Neutrophils 3.74 Absolute Lymphocytes 1.52 Absolute Monocytes 0.43 Absolute Eosinophils 0.25 Absolute Basophils 0.02 PT 11.9 H INR 1.2 H Sodium 145 Potassium 4.3 Chloride 113 H Carbon Dioxide 25.0 Anion Gap 7.0 BUN 40 H Creatinine 5.4 H* Estimated GFR/1.73 m2 10.38 Glucose 113 H Calcium 7.5 L Magnesium 2.9 H Iron TIBC Transferrin % Sat Ferritin Total Bilirubin 0.2 AST 16 ALT 17 Alkaline Phosphatase 87 Creatine Kinase Total Protein 5.1 L Albumin 2.2 L Urine Color Urine Clarity Urine pH Ur Specific [place] Urine Protein Urine Ketones Urine Blood Urine Nitrite Urine Bilirubin Urine Urobilinogen Ur Leukocyte Esterase Urine RBC Urine WBC Ur Epithelial Cells Urine Crystals Urine Bacteria Urine Mucus Ur Culture Indicated? Ur Random Creatinine U Random Total Protein U [place] Prot/Creat Ratio Ur Random Sodium Urine Glucose COVID-19 Source SARS-CoV-2 (PCR) Add-On Test Request 07/16/21 07/16/21 07/16/21 21:13 22:50 23:55 WBC RBC Hgb Hct MCV MCH MCHC RDW Plt Count MPV Immature Gran % Neutrophils % Lymphocytes % Monocytes % Eosinophils % Basophils % Nucleated RBC % Absolute Neutrophils Absolute Lymphocytes Absolute Monocytes Absolute Eosinophils Absolute Basophils PT INR Sodium Potassium Chloride Carbon Dioxide Anion Gap BUN Creatinine Estimated GFR/1.73 m2 Glucose Calcium Magnesium Iron Cancelled TIBC Cancelled Transferrin % Sat Cancelled Ferritin Total Bilirubin AST ALT Alkaline Phosphatase Creatine Kinase Total Protein Albumin Urine Color Yellow Urine Clarity Cloudy Urine pH 6.5 Ur Specific [place] 1.025 Urine Protein >=300 H Urine Ketones Negative Urine Blood Small H Urine Nitrite Positive H Urine Bilirubin Negative Urine Urobilinogen 0.2 Ur Leukocyte Esterase Small H Urine RBC Urine WBC >50 H Ur Epithelial Cells Moderate Urine Crystals Many Amorphous Urine Bacteria Packed Urine Mucus Not Applicable Ur Culture Indicated? Yes Ur Random Creatinine U Random Total Protein U [place] Prot/Creat Ratio Ur Random Sodium Urine Glucose 100 COVID-19 Source Nasal/Nares SARS-CoV-2 (PCR) Negative Add-On Test Request 07/16/21 07/17/21 07/17/21 23:55 01:30 01:30 WBC RBC Hgb Hct MCV MCH MCHC RDW Plt Count MPV Immature Gran % Neutrophils % Lymphocytes % Monocytes % Eosinophils % Basophils % Nucleated RBC % Absolute Neutrophils Absolute Lymphocytes Absolute Monocytes Absolute Eosinophils Absolute Basophils PT INR Sodium Potassium Chloride Carbon Dioxide Anion Gap BUN Creatinine Estimated GFR/1.73 m2 Glucose Calcium Magnesium Iron TIBC Transferrin % Sat Ferritin Cancelled Total Bilirubin AST ALT Alkaline Phosphatase Creatine Kinase Total Protein Albumin Urine Color Urine Clarity Urine pH Ur Specific [place] Urine Protein Urine Ketones Urine Blood Urine Nitrite Urine Bilirubin Urine Urobilinogen Ur Leukocyte Esterase Urine RBC Urine WBC Ur Epithelial Cells Urine Crystals Urine Bacteria Urine Mucus Ur Culture Indicated? Ur Random Creatinine 13.79 12.91 U Random Total Protein 167.8 U [place] Prot/Creat Ratio 12.99 Ur Random Sodium Urine Glucose COVID-19 Source SARS-CoV-2 (PCR) Add-On Test Request 07/17/21 07/17/21 07/17/21 01:30 06:10 06:10 WBC 6.11 RBC 2.65 L Hgb 8.1 L Hct 25.4 L MCV 95.8 H MCH 30.6 MCHC 31.9 L RDW 14.3 H Plt Count 223 MPV 10.8 Immature Gran % 0.3 Neutrophils % 63.9 Lymphocytes % 24.2 Monocytes % 7.0 Eosinophils % 4.3 Basophils % 0.3 Nucleated RBC % 0 Absolute Neutrophils 3.90 Absolute Lymphocytes 1.48 Absolute Monocytes 0.43 Absolute Eosinophils 0.26 Absolute Basophils 0.02 PT INR Sodium 145 Potassium 3.9 Chloride 114 H Carbon Dioxide 26.1 Anion Gap 4.9 BUN 41 H Creatinine 5.2 H* Estimated GFR/1.73 m2 10.84 Glucose 96 Calcium 7.4 L Magnesium 2.9 H Iron TIBC Transferrin % Sat Ferritin Total Bilirubin 0.3 AST 18 ALT 14 L Alkaline Phosphatase 89 Creatine Kinase Total Protein 5.1 L Albumin 2.1 L Urine Color Urine Clarity Urine pH Ur Specific [place] Urine Protein Urine Ketones Urine Blood Urine Nitrite Urine Bilirubin Urine Urobilinogen Ur Leukocyte Esterase Urine RBC Urine WBC Ur Epithelial Cells Urine Crystals Urine Bacteria Urine Mucus Ur Culture Indicated? Ur Random Creatinine U Random Total Protein U [place] Prot/Creat Ratio Ur Random Sodium 138 Urine Glucose COVID-19 Source SARS-CoV-2 (PCR) Add-On Test Request 07/17/21 07/17/21 06:10 06:10 WBC RBC Hgb Hct MCV MCH MCHC RDW Plt Count MPV Immature Gran % Neutrophils % Lymphocytes % Monocytes % Eosinophils % Basophils % Nucleated RBC % Absolute Neutrophils Absolute Lymphocytes Absolute Monocytes Absolute Eosinophils Absolute Basophils PT INR Sodium Potassium Chloride Carbon Dioxide Anion Gap BUN Creatinine Estimated GFR/1.73 m2 Glucose Calcium Magnesium Iron TIBC Transferrin % Sat Ferritin Total Bilirubin AST ALT Alkaline Phosphatase Creatine Kinase 54 Total Protein Albumin Urine Color Urine Clarity Urine pH Ur Specific [place] Urine Protein Urine Ketones Urine Blood Urine Nitrite Urine Bilirubin Urine Urobilinogen Ur Leukocyte Esterase Urine RBC Urine WBC Ur Epithelial Cells Urine Crystals Urine Bacteria Urine Mucus Ur Culture Indicated? Ur Random Creatinine U Random Total Protein U [place] Prot/Creat Ratio Ur Random Sodium Urine Glucose COVID-19 Source SARS-CoV-2 (PCR) Add-On Test Request DONE
[2021-07-17] MEDS: SODIUM CHLORIDE 0.45% 1,000 ML 80 ML IV (11:43)
[2021-07-17 11:49] LABS: Lab Add On Test DONE
[2021-07-17] MEDS: dilTIAZem 60 MG TAB PO ×2 (11:54→18:20)
[2021-07-17] MEDS: Insulin Aspart 300 UNITS/3 ML PEN SC ×2 (11:55→18:20)
[2021-07-17 12:24] LABS: NT-proBNP 7465 pg/mL (<300)
--- NOTE | 2021-07-17 14:00 | RT.EKG_ITS ---
APPROVED REPORT Exam: Resting ECG Reason for Exam: suspected CVA Patient Location: I HR:69 bpm ECG Measurements Heart Rate 69 AXIS FL 184 P 62 QRSd 81 QRS 4 QT 464 T 65 QTc 486 Conclusion Sinus rhythm...normal P axis, V-rate 60- 99 Ventricular premature complex...V complex w/ short R-R interval Low voltage, extremity leads...all extremity leads <0.5mV
--- NOTE | 2021-07-17 14:05 | W.PM.PROGNOT ---
Date of Service Date of service: 07/17/21 Time of Service: 12:00 Assessment and Plan Assessment and plan (1) AMS (altered mental status): Status: Acute Assessment and plan: DDx: acute CVA, seizure, encephalopathy due to LUISA +/- UTI or even hypertensive encephalopathy. Obtain MRI/MRA brain, US carotid, EEG. Heparin gtt. On renally adjusted keppra. Neurology consult. Neuro checks (2) Acute kidney injury superimposed on chronic kidney disease: Status: Acute Assessment and plan: See prior note. Trialing 1/2 NS at 80 cc/hr, per [facility] nephrology recommendations while monitoring UOP. Likely ATN. (3) UTI (urinary tract infection): Status: Acute Assessment and plan: Await cx. Urology consulted for suprapubic catheter exchange. Qualifiers: Urinary tract infection type: site unspecified Hematuria presence: without hematuria Qualified Code(s): N39.0 - Urinary tract infection, site not specified (4) Seizure disorder: Status: Chronic Assessment and plan: As above - continue keppra with the dose adjusted for kidney function. EEG ordered. (5) Diabetes type 2, controlled: Status: Chronic Assessment and plan: Continue SSI. 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 Xarelto on hold due to impaired kidney function. Heparin gtt bridge. (7) DVT prophylaxis: Status: Acute Assessment and plan: Transitioning to therapeutic heparin gtt (8) Discharge planning issues: Status: Acute Assessment and plan: DNR/DNi as per intermediate paperwork. Palliative care consulted Discussed with Dr Kan. Total Critical Care Time 35 minutes. Subjective Subjective Interval history since last seen: I was asked to re-evaluate the patient because the nurse noted that he was more somnolent and that his facail droop was worse. The patient was indeed more somnolent, hard to keep awake, very different from his presentation in the morning. He was A&Ox2, was able to follow simple commands, but otherwise was too lethargic to cooperate. While I appreciate his facial droop to be more to the right initially, with changing of his head position the droop was more obvious on the left, and the patient was able to produce a symmetric smile. No other new deficits - able to move all 4 extremities, but exam is limited due to the patient's lethargy. The patient has a h/o Afib. He was on xarelto at the intermediate, but this was held due to the LUISA on CKD. CT head obtained - negative. Asa 325 mg written. Discussed case with Dr Kan who recommends stroke workup as well as EEG. Since he is not on xarelto, we are starting a heparin gtt. Exam Narrative Exam Narrative: General: Lethargic Caucaisan male who is A&Ox2 when arousable, but promptly falls back asleep. This is a change from the exam this morning. The facial droop disappears when the patient smiles. HEENT: EOMI, MMM Heart: RRR Lungs: CTAB Abdomen: soft, nontender, nondistended Extremities: +1 edema BLEs Objective Last Vital Signs Temp 37.2 C 07/17/21 12:05 Pulse 58 L 07/17/21 13:00 Resp 14 07/17/21 13:30 BP 144/60 H 07/17/21 13:00 Pulse Ox 97 07/17/21 13:10 Laboratory Results - last 24 hr 07/16/21 07/16/21 07/16/21 20:45 20:45 20:45 WBC 5.98 RBC 2.67 L Hgb 8.1 L Hct 25.4 L MCV 95.1 H MCH 30.3 MCHC 31.9 L RDW 14.4 H Plt Count 232 MPV 10.6 Immature Gran % 0.3 Neutrophils % 62.6 Lymphocytes % 25.4 Monocytes % 7.2 Eosinophils % 4.2 Basophils % 0.3 Nucleated RBC % 0 Absolute Neutrophils 3.74 Absolute Lymphocytes 1.52 Absolute Monocytes 0.43 Absolute Eosinophils 0.25 Absolute Basophils 0.02 PT 11.9 H INR 1.2 H Sodium 145 Potassium 4.3 Chloride 113 H Carbon Dioxide 25.0 Anion Gap 7.0 BUN 40 H Creatinine 5.4 H* Estimated GFR/1.73 m2 10.38 Glucose 113 H Calcium 7.5 L Magnesium 2.9 H Iron TIBC Transferrin % Sat Ferritin Total Bilirubin 0.2 AST 16 ALT 17 Alkaline Phosphatase 87 Creatine Kinase NT-Pro-B Natriuret Pep Total Protein 5.1 L Albumin 2.2 L Urine Color Urine Clarity Urine pH Ur Specific [place] Urine Protein Urine Ketones Urine Blood Urine Nitrite Urine Bilirubin Urine Urobilinogen Ur Leukocyte Esterase Urine RBC Urine WBC Ur Epithelial Cells Urine Crystals Urine Bacteria Urine Mucus Ur Culture Indicated? Ur Random Creatinine U Random Total Protein U [place] Prot/Creat Ratio Ur Random Sodium Urine Glucose COVID-19 Source SARS-CoV-2 (PCR) Add-On Test Request 07/16/21 07/16/21 07/16/21 21:13 22:50 23:55 WBC RBC Hgb Hct MCV MCH MCHC RDW Plt Count MPV Immature Gran % Neutrophils % Lymphocytes % Monocytes % Eosinophils % Basophils % Nucleated RBC % Absolute Neutrophils Absolute Lymphocytes Absolute Monocytes Absolute Eosinophils Absolute Basophils PT INR Sodium Potassium Chloride Carbon Dioxide Anion Gap BUN Creatinine Estimated GFR/1.73 m2 Glucose Calcium Magnesium Iron Cancelled TIBC Cancelled Transferrin % Sat Cancelled Ferritin Total Bilirubin AST ALT Alkaline Phosphatase Creatine Kinase NT-Pro-B Natriuret Pep Total Protein Albumin Urine Color Yellow Urine Clarity Cloudy Urine pH 6.5 Ur Specific [place] 1.025 Urine Protein >=300 H Urine Ketones Negative Urine Blood Small H Urine Nitrite Positive H Urine Bilirubin Negative Urine Urobilinogen 0.2 Ur Leukocyte Esterase Small H Urine RBC Urine WBC >50 H Ur Epithelial Cells Moderate Urine Crystals Many Amorphous Urine Bacteria Packed Urine Mucus Not Applicable Ur Culture Indicated? Yes Ur Random Creatinine U Random Total Protein U [place] Prot/Creat Ratio Ur Random Sodium Urine Glucose 100 COVID-19 Source Nasal/Nares SARS-CoV-2 (PCR) Negative Add-On Test Request 07/16/21 07/17/21 07/17/21 23:55 01:30 01:30 WBC RBC Hgb Hct MCV MCH MCHC RDW Plt Count MPV Immature Gran % Neutrophils % Lymphocytes % Monocytes % Eosinophils % Basophils % Nucleated RBC % Absolute Neutrophils Absolute Lymphocytes Absolute Monocytes Absolute Eosinophils Absolute Basophils PT INR Sodium Potassium Chloride Carbon Dioxide Anion Gap BUN Creatinine Estimated GFR/1.73 m2 Glucose Calcium Magnesium Iron TIBC Transferrin % Sat Ferritin Cancelled Total Bilirubin AST ALT Alkaline Phosphatase Creatine Kinase NT-Pro-B Natriuret Pep Total Protein Albumin Urine Color Urine Clarity Urine pH Ur Specific [place] Urine Protein Urine Ketones Urine Blood Urine Nitrite Urine Bilirubin Urine Urobilinogen Ur Leukocyte Esterase Urine RBC Urine WBC Ur Epithelial Cells Urine Crystals Urine Bacteria Urine Mucus Ur Culture Indicated? Ur Random Creatinine 13.79 12.91 U Random Total Protein 167.8 U [place] Prot/Creat Ratio 12.99 Ur Random Sodium Urine Glucose COVID-19 Source SARS-CoV-2 (PCR) Add-On Test Request 07/17/21 07/17/21 07/17/21 01:30 06:10 06:10 WBC 6.11 RBC 2.65 L Hgb 8.1 L Hct 25.4 L MCV 95.8 H MCH 30.6 MCHC 31.9 L RDW 14.3 H Plt Count 223 MPV 10.8 Immature Gran % 0.3 Neutrophils % 63.9 Lymphocytes % 24.2 Monocytes % 7.0 Eosinophils % 4.3 Basophils % 0.3 Nucleated RBC % 0 Absolute Neutrophils 3.90 Absolute Lymphocytes 1.48 Absolute Monocytes 0.43 Absolute Eosinophils 0.26 Absolute Basophils 0.02 PT INR Sodium 145 Potassium 3.9 Chloride 114 H Carbon Dioxide 26.1 Anion Gap 4.9 BUN 41 H Creatinine 5.2 H* Estimated GFR/1.73 m2 10.84 Glucose 96 Calcium 7.4 L Magnesium 2.9 H Iron TIBC Transferrin % Sat Ferritin Total Bilirubin 0.3 AST 18 ALT 14 L Alkaline Phosphatase 89 Creatine Kinase NT-Pro-B Natriuret Pep Total Protein 5.1 L Albumin 2.1 L Urine Color Urine Clarity Urine pH Ur Specific [place] Urine Protein Urine Ketones Urine Blood Urine Nitrite Urine Bilirubin Urine Urobilinogen Ur Leukocyte Esterase Urine RBC Urine WBC Ur Epithelial Cells Urine Crystals Urine Bacteria Urine Mucus Ur Culture Indicated? Ur Random Creatinine U Random Total Protein U [place] Prot/Creat Ratio Ur Random Sodium 138 Urine Glucose COVID-19 Source SARS-CoV-2 (PCR) Add-On Test Request 07/17/21 07/17/21 07/17/21 06:10 06:10 06:10 WBC RBC Hgb Hct MCV MCH MCHC RDW Plt Count MPV Immature Gran % Neutrophils % Lymphocytes % Monocytes % Eosinophils % Basophils % Nucleated RBC % Absolute Neutrophils Absolute Lymphocytes Absolute Monocytes Absolute Eosinophils Absolute Basophils PT INR Sodium Potassium Chloride Carbon Dioxide Anion Gap BUN Creatinine Estimated GFR/1.73 m2 Glucose Calcium Magnesium Iron TIBC Transferrin % Sat Ferritin Total Bilirubin AST ALT Alkaline Phosphatase Creatine Kinase 54 NT-Pro-B Natriuret Pep Total Protein Albumin Urine Color Urine Clarity Urine pH Ur Specific [place] Urine Protein Urine Ketones Urine Blood Urine Nitrite Urine Bilirubin Urine Urobilinogen Ur Leukocyte Esterase Urine RBC Urine WBC Ur Epithelial Cells Urine Crystals Urine Bacteria Urine Mucus Ur Culture Indicated? Ur Random Creatinine U Random Total Protein U [place] Prot/Creat Ratio Ur Random Sodium Urine Glucose COVID-19 Source SARS-CoV-2 (PCR) Add-On Test Request DONE DONE 07/17/21 07/17/21 06:10 06:10 WBC RBC Hgb Hct MCV MCH MCHC RDW Plt Count MPV Immature Gran % Neutrophils % Lymphocytes % Monocytes % Eosinophils % Basophils % Nucleated RBC % Absolute Neutrophils Absolute Lymphocytes Absolute Monocytes Absolute Eosinophils Absolute Basophils PT INR Sodium Potassium Chloride Carbon Dioxide Anion Gap BUN Creatinine Estimated GFR/1.73 m2 Glucose Calcium Magnesium Iron TIBC Transferrin % Sat Ferritin Total Bilirubin AST ALT Alkaline Phosphatase Creatine Kinase NT-Pro-B Natriuret Pep Cancelled 7465 H Total Protein Albumin Urine Color Urine Clarity Urine pH Ur Specific [place] Urine Protein Urine Ketones Urine Blood Urine Nitrite Urine Bilirubin Urine Urobilinogen Ur Leukocyte Esterase Urine RBC Urine WBC Ur Epithelial Cells Urine Crystals Urine Bacteria Urine Mucus Ur Culture Indicated? Ur Random Creatinine U Random Total Protein U [place] Prot/Creat Ratio Ur Random Sodium Urine Glucose COVID-19 Source SARS-CoV-2 (PCR) Add-On Test Request Objective Narrative Objective Narrative: CT head: No acute intracranial process.?
--- NOTE | 2021-07-17 15:05 | NUR.NOTE ---
Tried to contact [facility] about mental status change. No answer when transferred to the nurse. Did update patient's son on his condition when he came to visit him.
--- NOTE | 2021-07-17 15:31 | PHA.REVIEW ---
Pharmacy Admission Review - Admission Clinical Review (Last Updated 07/17/21 @ 00:56 by Claire Merritt MD) AMS (altered mental status) (Acute) Acute renal failure (Acute) Elevated serum creatinine (Acute) Urethral erosion by catheter (Acute) UTI (urinary tract infection) (Acute) Acute kidney injury superimposed on chronic kidney disease (Acute) DVT prophylaxis (Acute) Discharge planning issues (Acute) No Known Allergies Allergy (Unverified 07/16/21 21:19) Resuscitation Status DNR/DNI Height 5 ft 11 in Weight 78.3 kg - Renal Dosing Renal Dosing: BUN 41 mg/dL (7-18) H 07/17/21 06:10 Creatinine 5.2 mg/dL (0.70-1.30) H* 07/17/21 06:10 Medications needing adjustments: Reviewed List of meds needing interventions: eCrCl 12 ml/min -- janessara is renally dosed - Anticoagulation Anticoagulation: Hgb 8.1 g/dL (13.5-17.5) L 07/17/21 06:10 Hct 25.4 % (40.0-50.0) L 07/17/21 06:10 Plt Count 223 10^3/uL (130-400) 07/17/21 06:10 INR 1.2 (0.9-1.1) H 07/16/21 20:45 Creatinine 5.2 mg/dL (0.70-1.30) H* 07/17/21 06:10 Therapeutic Anticoagulation: Reviewed Medications: Heparin - Opiate Usage Evaluate Pain Scale/Pains Meds: N/A - Relevant Labs Sodium 145 mmol/L (136-145) 07/17/21 06:10 Potassium 3.9 mmol/L (3.5-5.1) 07/17/21 06:10 Chloride 114 mmol/L (98-107) H 07/17/21 06:10 Magnesium 2.9 mg/dL (1.8-2.4) H 07/17/21 06:10 Electrolytes, C-Reactive P, ESR: Reviewed - DM Control DM Control: Glucose 96 mg/dL (74-106) 07/17/21 06:10 Finger Stick Blood Glucose 176 Finger Stick Blood Glucose 176 Finger Stick Blood Glucose 176 Finger Stick Blood Glucose 100 Finger Stick Blood Glucose 100 Finger Stick Blood Glucose 100 Finger Stick Blood Glucose 100 Insulin Dosing: Reviewed (aspart per SS ordered, uses 15U of glargine @ home/rehab) - Heart Failure/PA Heart Failure/PA: NT-Pro-B Natriuret Pep 7465 pg/mL (<300) H 07/17/21 06:10 NT-Pro-B Natriuret Pep Cancelled 07/17/21 06:10 EF%, SMITH's, B-Blockers, Diuretics: Reviewed - BP Control BP Control: Blood Pressure [Left Arm] 152/71 Blood Pressure [Left Arm] 152/71 Blood Pressure 144/60 Blood Pressure 156/62 Blood Pressure 156/76 Blood Pressure 153/79 Blood Pressure 120/57 Blood Pressure 159/64 Blood Pressure 152/71 Blood Pressure 170/83 Blood Pressure 169/73 Blood Pressure 185/86 Blood Pressure 184/62 Blood Pressure 170/76 Blood Pressure 173/84 If elevated: Reviewed - Qtc Review If Elevated: N/A - IV to PO Switch IV Medications: Reviewed - Home Meds Home Med List reviewed: Reviewed Relevent Home Meds Not ordered & why?: not ordered: atorvastatin, insulin glargine, sertraline, sucralfate, tramadol, xarelto (medina, heparin ordered), zinc, ascorbic acid - Current meds Current Medication Order Review: Reviewed
--- NOTE | 2021-07-17 16:03 | W.UROLOGYCON ---
Date of service: 07/17/21 Time of Service: 15:30 Assessment and Plan Assessment and plan (1) Urinary retention: Status: Acute Assessment and plan: Suprapubic catheter was changed at the request of hospitalist. See procedure section for further documentation. History of Present Illness Narrative: Mr. Panchal is a 75-year-old gentleman with known urinary retention. He had an indwelling catheter until he had urethral erosion especially around the meatus. He then had a suprapubic tube placed here at her facility by Dr. Cooney. At the request of the hospitalist they are asking that we change his suprapubic tube. Consults Consult date: 07/17/21 Requesting physician: Yoselyn Hdz Review of Systems Genitourinary Genitourinary: Reports as per [facility] All Active Problems (Updated 07/17/21 @ 14:12 by Yoselyn Hdz MD) Afib (Chronic) AMS (altered mental status) (Acute) Acute renal failure (Acute) Elevated serum creatinine (Acute) Urethral erosion by catheter (Acute) Mental status alteration (Acute) Diabetes type 2, controlled (Chronic) Renal insufficiency (Chronic) Discharge planning issues (Acute) Seizure disorder (Chronic) UTI (urinary tract infection) (Acute) Acute kidney injury superimposed on chronic kidney disease (Acute) DVT prophylaxis (Acute) Discharge planning issues (Acute) Babinski reflex (Acute) Paroxysmal atrial fibrillation (Chronic) Vascular dementia (Chronic) Difficulty in swallowing (Acute) Thrush (Acute) DVT prophylaxis (Acute) Discharge planning issues (Acute) Weakness on left side of face (Acute) Palliative care patient (Acute) DNR (do not resuscitate) (Acute) Whitt catheter problem (Acute) Orthostatic hypotension (Acute) Near syncope (Acute) Urinary retention (Acute) CKD (chronic kidney disease) (Chronic) COPD (chronic obstructive pulmonary disease) (Chronic) Cerebrovascular disease (Chronic) CVA Medical History (Updated 07/17/21 @ 14:12 by Yoselyn Hdz MD) Acute exacerbation of chronic obstructive pulmonary disease (COPD) Acute respiratory failure with hypoxia Atrial fibrillation with rapid ventricular response 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 Diabetes Diabetic gastroenteropathy Difficulty in walking Dysarthria GERD (gastroesophageal reflux disease) Hemiplegia affecting left nondominant side HTN (hypertension) Hyperlipidemia Hypertensive emergency Indwelling urinary catheter present Major depressive disorder Seizure on Keppra Sepsis Sleep apnea Spell of abnormal behavior Spell of altered cognition Spells of trembling Syncope Urinary retention Urinary tract infection Vasovagal syncope Vomiting Surgical History EGD - MAC (07/28/16) Hx of cataract surgery S/P insertion of penile implant S/P prostatectomy Social History Smoking/Tobacco Use Status: Former Tobacco Use Smoking risk assessment performed?: Yes Alcohol Intake: former Drug use: Never Substance use type: does not use Details: No alcohol in the last 4 or 5 years. 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 What is your relationship status?: Panel score (0-1 are the most socially isolated patients): 0 Seatbelt use: never Do you feel safe at home: Yes Do you feel safe in your relationship?: Yes Exam Const General: comfortable Neck Neck: supple Resp Effort & Inspection: normal respiratory effort GI Palpation: soft Neuro General: patient alert and patient awake Results Last Vital Signs Temp 98.1 F 07/17/21 12:05 Pulse 58 L 07/17/21 13:00 Resp 14 07/17/21 13:30 BP 144/60 H 07/17/21 13:00 Pulse Ox 97 07/17/21 13:10 Labs Result diagrams: 07/17/21 06:10 07/17/21 06:10 Labs: Laboratory Results - last 24 hr 07/16/21 07/16/21 07/16/21 20:45 20:45 20:45 WBC 5.98 RBC 2.67 L Hgb 8.1 L Hct 25.4 L MCV 95.1 H MCH 30.3 MCHC 31.9 L RDW 14.4 H Plt Count 232 MPV 10.6 Immature Gran % 0.3 Neutrophils % 62.6 Lymphocytes % 25.4 Monocytes % 7.2 Eosinophils % 4.2 Basophils % 0.3 Nucleated RBC % 0 Absolute Neutrophils 3.74 Absolute Lymphocytes 1.52 Absolute Monocytes 0.43 Absolute Eosinophils 0.25 Absolute Basophils 0.02 PT 11.9 H INR 1.2 H APTT Sodium 145 Potassium 4.3 Chloride 113 H Carbon Dioxide 25.0 Anion Gap 7.0 BUN 40 H Creatinine 5.4 H* Estimated GFR/1.73 m2 10.38 Glucose 113 H Calcium 7.5 L Magnesium 2.9 H Iron TIBC Transferrin % Sat Ferritin Total Bilirubin 0.2 AST 16 ALT 17 Alkaline Phosphatase 87 Creatine Kinase NT-Pro-B Natriuret Pep Total Protein 5.1 L Albumin 2.2 L Urine Color Urine Clarity Urine pH Ur Specific [place] Urine Protein Urine Ketones Urine Blood Urine Nitrite Urine Bilirubin Urine Urobilinogen Ur Leukocyte Esterase Urine RBC Urine WBC Ur Epithelial Cells Urine Crystals Urine Bacteria Urine Mucus Ur Culture Indicated? Ur Random Creatinine U Random Total Protein U [place] Prot/Creat Ratio Ur Random Sodium Urine Glucose COVID-19 Source SARS-CoV-2 (PCR) Add-On Test Request 07/16/21 07/16/21 07/16/21 21:13 22:50 23:55 WBC RBC Hgb Hct MCV MCH MCHC RDW Plt Count MPV Immature Gran % Neutrophils % Lymphocytes % Monocytes % Eosinophils % Basophils % Nucleated RBC % Absolute Neutrophils Absolute Lymphocytes Absolute Monocytes Absolute Eosinophils Absolute Basophils PT INR APTT Sodium Potassium Chloride Carbon Dioxide Anion Gap BUN Creatinine Estimated GFR/1.73 m2 Glucose Calcium Magnesium Iron Cancelled TIBC Cancelled Transferrin % Sat Cancelled Ferritin Total Bilirubin AST ALT Alkaline Phosphatase Creatine Kinase NT-Pro-B Natriuret Pep Total Protein Albumin Urine Color Yellow Urine Clarity Cloudy Urine pH 6.5 Ur Specific [place] 1.025 Urine Protein >=300 H Urine Ketones Negative Urine Blood Small H Urine Nitrite Positive H Urine Bilirubin Negative Urine Urobilinogen 0.2 Ur Leukocyte Esterase Small H Urine RBC Urine WBC >50 H Ur Epithelial Cells Moderate Urine Crystals Many Amorphous Urine Bacteria Packed Urine Mucus Not Applicable Ur Culture Indicated? Yes Ur Random Creatinine U Random Total Protein U [place] Prot/Creat Ratio Ur Random Sodium Urine Glucose 100 COVID-19 Source Nasal/Nares SARS-CoV-2 (PCR) Negative Add-On Test Request 07/16/21 07/17/21 07/17/21 23:55 01:30 01:30 WBC RBC Hgb Hct MCV MCH MCHC RDW Plt Count MPV Immature Gran % Neutrophils % Lymphocytes % Monocytes % Eosinophils % Basophils % Nucleated RBC % Absolute Neutrophils Absolute Lymphocytes Absolute Monocytes Absolute Eosinophils Absolute Basophils PT INR APTT Sodium Potassium Chloride Carbon Dioxide Anion Gap BUN Creatinine Estimated GFR/1.73 m2 Glucose Calcium Magnesium Iron TIBC Transferrin % Sat Ferritin Cancelled Total Bilirubin AST ALT Alkaline Phosphatase Creatine Kinase NT-Pro-B Natriuret Pep Total Protein Albumin Urine Color Urine Clarity Urine pH Ur Specific [place] Urine Protein Urine Ketones Urine Blood Urine Nitrite Urine Bilirubin Urine Urobilinogen Ur Leukocyte Esterase Urine RBC Urine WBC Ur Epithelial Cells Urine Crystals Urine Bacteria Urine Mucus Ur Culture Indicated? Ur Random Creatinine 13.79 12.91 U Random Total Protein 167.8 U [place] Prot/Creat Ratio 12.99 Ur Random Sodium Urine Glucose COVID-19 Source SARS-CoV-2 (PCR) Add-On Test Request 07/17/21 07/17/21 07/17/21 01:30 06:10 06:10 WBC 6.11 RBC 2.65 L Hgb 8.1 L Hct 25.4 L MCV 95.8 H MCH 30.6 MCHC 31.9 L RDW 14.3 H Plt Count 223 MPV 10.8 Immature Gran % 0.3 Neutrophils % 63.9 Lymphocytes % 24.2 Monocytes % 7.0 Eosinophils % 4.3 Basophils % 0.3 Nucleated RBC % 0 Absolute Neutrophils 3.90 Absolute Lymphocytes 1.48 Absolute Monocytes 0.43 Absolute Eosinophils 0.26 Absolute Basophils 0.02 PT INR APTT Sodium 145 Potassium 3.9 Chloride 114 H Carbon Dioxide 26.1 Anion Gap 4.9 BUN 41 H Creatinine 5.2 H* Estimated GFR/1.73 m2 10.84 Glucose 96 Calcium 7.4 L Magnesium 2.9 H Iron TIBC Transferrin % Sat Ferritin Total Bilirubin 0.3 AST 18 ALT 14 L Alkaline Phosphatase 89 Creatine Kinase NT-Pro-B Natriuret Pep Total Protein 5.1 L Albumin 2.1 L Urine Color Urine Clarity Urine pH Ur Specific [place] Urine Protein Urine Ketones Urine Blood Urine Nitrite Urine Bilirubin Urine Urobilinogen Ur Leukocyte Esterase Urine RBC Urine WBC Ur Epithelial Cells Urine Crystals Urine Bacteria Urine Mucus Ur Culture Indicated? Ur Random Creatinine U Random Total Protein U [place] Prot/Creat Ratio Ur Random Sodium 138 Urine Glucose COVID-19 Source SARS-CoV-2 (PCR) Add-On Test Request 07/17/21 07/17/21 07/17/21 06:10 06:10 06:10 WBC RBC Hgb Hct MCV MCH MCHC RDW Plt Count MPV Immature Gran % Neutrophils % Lymphocytes % Monocytes % Eosinophils % Basophils % Nucleated RBC % Absolute Neutrophils Absolute Lymphocytes Absolute Monocytes Absolute Eosinophils Absolute Basophils PT INR APTT Sodium Potassium Chloride Carbon Dioxide Anion Gap BUN Creatinine Estimated GFR/1.73 m2 Glucose Calcium Magnesium Iron TIBC Transferrin % Sat Ferritin Total Bilirubin AST ALT Alkaline Phosphatase Creatine Kinase 54 NT-Pro-B Natriuret Pep Total Protein Albumin Urine Color Urine Clarity Urine pH Ur Specific [place] Urine Protein Urine Ketones Urine Blood Urine Nitrite Urine Bilirubin Urine Urobilinogen Ur Leukocyte Esterase Urine RBC Urine WBC Ur Epithelial Cells Urine Crystals Urine Bacteria Urine Mucus Ur Culture Indicated? Ur Random Creatinine U Random Total Protein U [place] Prot/Creat Ratio Ur Random Sodium Urine Glucose COVID-19 Source SARS-CoV-2 (PCR) Add-On Test Request DONE DONE 07/17/21 07/17/21 07/17/21 06:10 06:10 14:42 WBC RBC Hgb Hct MCV MCH MCHC RDW Plt Count MPV Immature Gran % Neutrophils % Lymphocytes % Monocytes % Eosinophils % Basophils % Nucleated RBC % Absolute Neutrophils Absolute Lymphocytes Absolute Monocytes Absolute Eosinophils Absolute Basophils PT INR APTT 32.0 H Sodium Potassium Chloride Carbon Dioxide Anion Gap BUN Creatinine Estimated GFR/1.73 m2 Glucose Calcium Magnesium Iron TIBC Transferrin % Sat Ferritin Total Bilirubin AST ALT Alkaline Phosphatase Creatine Kinase NT-Pro-B Natriuret Pep Cancelled 7465 H Total Protein Albumin Urine Color Urine Clarity Urine pH Ur Specific [place] Urine Protein Urine Ketones Urine Blood Urine Nitrite Urine Bilirubin Urine Urobilinogen Ur Leukocyte Esterase Urine RBC Urine WBC Ur Epithelial Cells Urine Crystals Urine Bacteria Urine Mucus Ur Culture Indicated? Ur Random Creatinine U Random Total Protein U [place] Prot/Creat Ratio Ur Random Sodium Urine Glucose COVID-19 Source SARS-CoV-2 (PCR) Add-On Test Request Change Bladder Catheter Procedure performed by: Juliet Hughes Informed consent given: Yes Position of patient: supine Inplace catheter size (Fr): 16 Inplace catheter type: supra pubic Water amount removed from catheter balloon: 7cc Catheter removed: without difficulty Catheter intact: Yes Sterilizing agent: Yes Type of anesthesia: topical gel Catheter size (Fr): 16 Catheter type: supra pubic Lubrication: Yes Catheter inserted: without difficulty Volume instilled into catheter balloon: 10cc Urine color: yellow Urine clarity: clear Clots present: No Irrigation: No Catheter attached to: bedside drainage bag Patient tolerated procedure: well Complications: No
--- NOTE | 2021-07-17 17:42 | W.NEUROCONSU ---
Date of service: 07/17/21 Time of Service: 17:43 Assessment and Plan Assessment and plan (1) AMS (altered mental status): Status: Acute Assessment and plan: Mr. Panchal is a 75 year-old man admitted with acute renal failure who had a prolonged episode of somnolence/altered mental status now back to baseline. There was a question of new facial weakness. Unclear what happened with broad differential including stroke, seizure, or toxic-metabolic encephalopathy. Agree with brain MRI as further work-up and coverage with IV heparin in meantime given history of prior stroke. Agree with continuous EEG in meantime. Continue LEV 500mg daily based on renal function. History of Present Illness History of Present Illness Chief Complaint: altered mental status Narrative: Handedness: right. Mr. 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 He currently resides at [facility]. Mr. Panchal was brought to the [facility] ER yesterday for new finding of worsening renal failure found on routine lab: Cr 5.3. He was otherwise asymptomatic. He has a suprapubic catheter due to a previous urethral ulcer along with a penile implant. He is still producing urine. Because of his renal failure, Xarelto was held. Levetiracetam was reduced to 500mg once daily (from 750mg BID). At around noon today, Mr. Panchal became lethargic/unresponsive with question of new/worse facial droop - varying reports of which side vs different sides at different times. He had a stat CTH which showed no acute findings - he has extensive chronic vascular changes with old right centrum semiovale infarct. I reviewed these images personally and this is my personal interpretation. He spontaneously returned back to baseline at ~3pm. He has since been started on heparin drip given concern for possible stroke. He has also been started on continuous EEG. Review of Systems All systems reviewed & are unremarkable except as noted in HPI and below PFSH All Active Problems (Updated 07/17/21 @ 14:12 by Yoselyn Hdz MD) Afib (Chronic) AMS (altered mental status) (Acute) Acute renal failure (Acute) Elevated serum creatinine (Acute) Urethral erosion by catheter (Acute) Mental status alteration (Acute) Diabetes type 2, controlled (Chronic) Renal insufficiency (Chronic) Discharge planning issues (Acute) Seizure disorder (Chronic) UTI (urinary tract infection) (Acute) Acute kidney injury superimposed on chronic kidney disease (Acute) DVT prophylaxis (Acute) Discharge planning issues (Acute) Babinski reflex (Acute) Paroxysmal atrial fibrillation (Chronic) Vascular dementia (Chronic) Difficulty in swallowing (Acute) Thrush (Acute) DVT prophylaxis (Acute) Discharge planning issues (Acute) Weakness on left side of face (Acute) Palliative care patient (Acute) DNR (do not resuscitate) (Acute) Whitt catheter problem (Acute) Orthostatic hypotension (Acute) Near syncope (Acute) Urinary retention (Acute) CKD (chronic kidney disease) (Chronic) COPD (chronic obstructive pulmonary disease) (Chronic) Cerebrovascular disease (Chronic) CVA Medical History (Updated 07/17/21 @ 14:12 by Yoselyn Hdz MD) Acute exacerbation of chronic obstructive pulmonary disease (COPD) Acute respiratory failure with hypoxia Atrial fibrillation with rapid ventricular response 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 Diabetes Diabetic gastroenteropathy Difficulty in walking Dysarthria GERD (gastroesophageal reflux disease) Hemiplegia affecting left nondominant side HTN (hypertension) Hyperlipidemia Hypertensive emergency Indwelling urinary catheter present Major depressive disorder Seizure on Keppra Sepsis Sleep apnea Spell of abnormal behavior Spell of altered cognition Spells of trembling Syncope Urinary retention Urinary tract infection Vasovagal syncope Vomiting Surgical History EGD - MAC (07/28/16) Hx of cataract surgery S/P insertion of penile implant S/P prostatectomy Social History Smoking/Tobacco Use Status: Former Tobacco Use Smoking risk assessment performed?: Yes Alcohol Intake: former Drug use: Never Substance use type: does not use Details: No alcohol in the last 4 or 5 years. 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 What is your relationship status?: Panel score (0-1 are the most socially isolated patients): 0 Seatbelt use: never Do you feel safe at home: Yes Do you feel safe in your relationship?: Yes Visit Medication and Allergies Active Medications Generic Name Dose Route Start Last Admin Trade Name Freq PRN Reason Stop Dose Admin Acetaminophen 650 mg 07/17/21 00:35 Acetaminophen 650 Mg Supp MN Q4H PRN PRN Albuterol Sulfate 2 puff 07/17/21 00:37 Albuterol Hfa 8 Gm 60 Puff Inh IH Q6H PRN Budesonide/Formoterol Fumarate 2 puff 07/17/21 08:30 07/17/21 09:08 Budesonide/Formoterol 160/4.5 6 Gm 60 Puff Inh IH 2 puff BID [facility] Administration Device 1 each 07/17/21 01:00 Inhaler, Assist Device MC DIRECTED LASHAWN Dextrose 0 gm 07/17/21 00:40 Glucose 40% Oral Solution 15 Gm/37.5 Gm Tube PO DIRECTED PRN Dextrose/Water 0 gm 07/17/21 00:40 Dextrose 50%-Water 25 Gm/50 Ml Syr IVP DIRECTED PRN Diltiazem HCl 240 mg 07/18/21 08:30 Diltiazem Cd 120 Mg Capcr PO DAILY [facility] Diltiazem HCl 60 mg 07/17/21 12:00 07/17/21 11:54 Diltiazem 60 Mg Tab PO 60 mg Q6H [facility] Administration Dimethicone/Zinc Oxide 0 gm 07/17/21 00:30 Arabella Protect Cream 142 Gm Tube TP PRN PRN Sodium Chloride 500 mls @ 0 mls/hr 07/16/21 20:12 Saline 500ml Bag IV PRN PRN As Directed Ceftriaxone Sodium/Dextrose 1 gm in 50 mls @ 100 mls/hr 07/18/21 00:00 Rocephin IVPB Q24H [facility] Sodium Chloride 1,000 mls @ 80 mls/hr 07/17/21 11:30 07/17/21 14:15 Half Normal Saline IV 80 mls/hr INFUSION [facility] Infusion Heparin Sodium (Porcine) 25,000 units in 250 mls @ 9.5 mls/hr 07/17/21 14:00 07/17/21 15:46 IV 950 units/hr INFUSION LASHAWN 9.5 mls/hr Administration Protocol 950 UNITS/HR IV Miscellaneous Supplies 1 each 07/16/21 20:15 Iv Access IV DIRECTED [facility] Insulin Aspart 0 units 07/17/21 08:00 07/17/21 11:55 Insulin Aspart 300 Units/3 Ml Pen SC 2 unit 0800,1200,1700,2200 LASHAWN Administration Protocol Levalbuterol HCl 0.63 mg 07/17/21 08:20 Levalbuterol 0.63 Mg/3 Ml Upd Vial UPD Q6H PRN PRN Levetiracetam 500 mg 07/17/21 08:30 07/17/21 08:33 Levetiracetam 500 Mg Tab PO 500 mg QAM LASHAWN Administration Metoprolol Succinate 12.5 mg 07/18/21 08:30 Metoprolol Cr 25 Mg Tabcr PO DAILY LASHAWN Ondansetron HCl 4 mg 07/17/21 06:00 07/17/21 14:19 Ondansetron O.D.T. 4 Mg Tabef PO Not Given Q8H LASHAWN Polyethylene Glycol 17 gm 07/17/21 00:30 Polyethylene Glycol 3350 17 Gm Packet PO DAILY PRN PRN Constipation Sodium Chloride 0 ml 07/16/21 20:12 07/17/21 08:33 Normal Saline Flush 10 Ml Syr IVP 20 ml PRN PRN Administration Allergies No Known Allergies Allergy (Unverified 07/16/21 21:19) Exam Narrative Exam Narrative: Physical Exam: Constitutional: Patient of apparent stated age, well nourished, well developed, no acute distress Neck: Supple, no meningismus CV: RRR, S1, S2, no murmur Resp: CTAB Abd: Soft, nontender, nondistended Neuro: MS/Language/Speech: Alert, oriented to self and place, clear language (fluency and comprehension), no dysarthria CN: PERRL, EOMI, visual huerta full, trigeminal sensation intact, no facial asymmetry, hearing intact, palate elevates symmetrically, tongue protrudes midline, SCM and trap strength intact Motor: Normal bulk and tone. FMM slightly reduced bilaterally, no pronator drift. 5/5 strength in bilateral upper and lower extremities Sensation: Intact to light touch throughout Reflexes: hyporeflexic throughout, downgoing toes Coordination: Finger to nose performed without dysmetria Gait: not tested, he is wheelchair bound Results Last Vital Signs Temp 98.2 F 07/17/21 15:30 Pulse 61 07/17/21 16:00 Resp 16 07/17/21 16:20 BP 160/65 H 07/17/21 16:00 Pulse Ox 97 07/17/21 16:01 Labs Result diagrams: 07/17/21 06:10 07/17/21 06:10 Labs: Laboratory Results - last 24 hr 07/16/21 07/16/21 07/16/21 20:45 20:45 20:45 WBC 5.98 RBC 2.67 L Hgb 8.1 L Hct 25.4 L MCV 95.1 H MCH 30.3 MCHC 31.9 L RDW 14.4 H Plt Count 232 MPV 10.6 Immature Gran % 0.3 Neutrophils % 62.6 Lymphocytes % 25.4 Monocytes % 7.2 Eosinophils % 4.2 Basophils % 0.3 Nucleated RBC % 0 Absolute Neutrophils 3.74 Absolute Lymphocytes 1.52 Absolute Monocytes 0.43 Absolute Eosinophils 0.25 Absolute Basophils 0.02 PT 11.9 H INR 1.2 H APTT Sodium 145 Potassium 4.3 Chloride 113 H Carbon Dioxide 25.0 Anion Gap 7.0 BUN 40 H Creatinine 5.4 H* Estimated GFR/1.73 m2 10.38 Glucose 113 H Calcium 7.5 L Magnesium 2.9 H Iron TIBC Transferrin % Sat Ferritin Total Bilirubin 0.2 AST 16 ALT 17 Alkaline Phosphatase 87 Creatine Kinase NT-Pro-B Natriuret Pep Total Protein 5.1 L Albumin 2.2 L Urine Color Urine Clarity Urine pH Ur Specific [place] Urine Protein Urine Ketones Urine Blood Urine Nitrite Urine Bilirubin Urine Urobilinogen Ur Leukocyte Esterase Urine RBC Urine WBC Ur Epithelial Cells Urine Crystals Urine Bacteria Urine Mucus Ur Culture Indicated? Ur Random Creatinine U Random Total Protein U [place] Prot/Creat Ratio Ur Random Sodium Urine Glucose COVID-19 Source SARS-CoV-2 (PCR) Add-On Test Request 07/16/21 07/16/21 07/16/21 21:13 22:50 23:55 WBC RBC Hgb Hct MCV MCH MCHC RDW Plt Count MPV Immature Gran % Neutrophils % Lymphocytes % Monocytes % Eosinophils % Basophils % Nucleated RBC % Absolute Neutrophils Absolute Lymphocytes Absolute Monocytes Absolute Eosinophils Absolute Basophils PT INR APTT Sodium Potassium Chloride Carbon Dioxide Anion Gap BUN Creatinine Estimated GFR/1.73 m2 Glucose Calcium Magnesium Iron Cancelled TIBC Cancelled Transferrin % Sat Cancelled Ferritin Total Bilirubin AST ALT Alkaline Phosphatase Creatine Kinase NT-Pro-B Natriuret Pep Total Protein Albumin Urine Color Yellow Urine Clarity Cloudy Urine pH 6.5 Ur Specific [place] 1.025 Urine Protein >=300 H Urine Ketones Negative Urine Blood Small H Urine Nitrite Positive H Urine Bilirubin Negative Urine Urobilinogen 0.2 Ur Leukocyte Esterase Small H Urine RBC Urine WBC >50 H Ur Epithelial Cells Moderate Urine Crystals Many Amorphous Urine Bacteria Packed Urine Mucus Not Applicable Ur Culture Indicated? Yes Ur Random Creatinine U Random Total Protein U [place] Prot/Creat Ratio Ur Random Sodium Urine Glucose 100 COVID-19 Source Nasal/Nares SARS-CoV-2 (PCR) Negative Add-On Test Request 07/16/21 07/17/21 07/17/21 23:55 01:30 01:30 WBC RBC Hgb Hct MCV MCH MCHC RDW Plt Count MPV Immature Gran % Neutrophils % Lymphocytes % Monocytes % Eosinophils % Basophils % Nucleated RBC % Absolute Neutrophils Absolute Lymphocytes Absolute Monocytes Absolute Eosinophils Absolute Basophils PT INR APTT Sodium Potassium Chloride Carbon Dioxide Anion Gap BUN Creatinine Estimated GFR/1.73 m2 Glucose Calcium Magnesium Iron TIBC Transferrin % Sat Ferritin Cancelled Total Bilirubin AST ALT Alkaline Phosphatase Creatine Kinase NT-Pro-B Natriuret Pep Total Protein Albumin Urine Color Urine Clarity Urine pH Ur Specific [place] Urine Protein Urine Ketones Urine Blood Urine Nitrite Urine Bilirubin Urine Urobilinogen Ur Leukocyte Esterase Urine RBC Urine WBC Ur Epithelial Cells Urine Crystals Urine Bacteria Urine Mucus Ur Culture Indicated? Ur Random Creatinine 13.79 12.91 U Random Total Protein 167.8 U [place] Prot/Creat Ratio 12.99 Ur Random Sodium Urine Glucose COVID-19 Source SARS-CoV-2 (PCR) Add-On Test Request 07/17/21 07/17/21 07/17/21 01:30 06:10 06:10 WBC 6.11 RBC 2.65 L Hgb 8.1 L Hct 25.4 L MCV 95.8 H MCH 30.6 MCHC 31.9 L RDW 14.3 H Plt Count 223 MPV 10.8 Immature Gran % 0.3 Neutrophils % 63.9 Lymphocytes % 24.2 Monocytes % 7.0 Eosinophils % 4.3 Basophils % 0.3 Nucleated RBC % 0 Absolute Neutrophils 3.90 Absolute Lymphocytes 1.48 Absolute Monocytes 0.43 Absolute Eosinophils 0.26 Absolute Basophils 0.02 PT INR APTT Sodium 145 Potassium 3.9 Chloride 114 H Carbon Dioxide 26.1 Anion Gap 4.9 BUN 41 H Creatinine 5.2 H* Estimated GFR/1.73 m2 10.84 Glucose 96 Calcium 7.4 L Magnesium 2.9 H Iron TIBC Transferrin % Sat Ferritin Total Bilirubin 0.3 AST 18 ALT 14 L Alkaline Phosphatase 89 Creatine Kinase NT-Pro-B Natriuret Pep Total Protein 5.1 L Albumin 2.1 L Urine Color Urine Clarity Urine pH Ur Specific [place] Urine Protein Urine Ketones Urine Blood Urine Nitrite Urine Bilirubin Urine Urobilinogen Ur Leukocyte Esterase Urine RBC Urine WBC Ur Epithelial Cells Urine Crystals Urine Bacteria Urine Mucus Ur Culture Indicated? Ur Random Creatinine U Random Total Protein U [place] Prot/Creat Ratio Ur Random Sodium 138 Urine Glucose COVID-19 Source SARS-CoV-2 (PCR) Add-On Test Request 07/17/21 07/17/21 07/17/21 06:10 06:10 06:10 WBC RBC Hgb Hct MCV MCH MCHC RDW Plt Count MPV Immature Gran % Neutrophils % Lymphocytes % Monocytes % Eosinophils % Basophils % Nucleated RBC % Absolute Neutrophils Absolute Lymphocytes Absolute Monocytes Absolute Eosinophils Absolute Basophils PT INR APTT Sodium Potassium Chloride Carbon Dioxide Anion Gap BUN Creatinine Estimated GFR/1.73 m2 Glucose Calcium Magnesium Iron TIBC Transferrin % Sat Ferritin Total Bilirubin AST ALT Alkaline Phosphatase Creatine Kinase 54 NT-Pro-B Natriuret Pep Total Protein Albumin Urine Color Urine Clarity Urine pH Ur Specific [place] Urine Protein Urine Ketones Urine Blood Urine Nitrite Urine Bilirubin Urine Urobilinogen Ur Leukocyte Esterase Urine RBC Urine WBC Ur Epithelial Cells Urine Crystals Urine Bacteria Urine Mucus Ur Culture Indicated? Ur Random Creatinine U Random Total Protein U [place] Prot/Creat Ratio Ur Random Sodium Urine Glucose COVID-19 Source SARS-CoV-2 (PCR) Add-On Test Request DONE DONE 07/17/21 07/17/21 07/17/21 06:10 06:10 14:42 WBC RBC Hgb Hct MCV MCH MCHC RDW Plt Count MPV Immature Gran % Neutrophils % Lymphocytes % Monocytes % Eosinophils % Basophils % Nucleated RBC % Absolute Neutrophils Absolute Lymphocytes Absolute Monocytes Absolute Eosinophils Absolute Basophils PT INR APTT 32.0 H Sodium Potassium Chloride Carbon Dioxide Anion Gap BUN Creatinine Estimated GFR/1.73 m2 Glucose Calcium Magnesium Iron TIBC Transferrin % Sat Ferritin Total Bilirubin AST ALT Alkaline Phosphatase Creatine Kinase NT-Pro-B Natriuret Pep Cancelled 7465 H Total Protein Albumin Urine Color Urine Clarity Urine pH Ur Specific [place] Urine Protein Urine Ketones Urine Blood Urine Nitrite Urine Bilirubin Urine Urobilinogen Ur Leukocyte Esterase Urine RBC Urine WBC Ur Epithelial Cells Urine Crystals Urine Bacteria Urine Mucus Ur Culture Indicated? Ur Random Creatinine U Random Total Protein U [place] Prot/Creat Ratio Ur Random Sodium Urine Glucose COVID-19 Source SARS-CoV-2 (PCR) Add-On Test Request
[2021-07-17 22:16] LABS: PTT Activated 52.9 sec (21.0-27.5)
[2021-07-17 22:28] LABS: Urea Nitrogen Random Urine <67 mg/dL (See Note)
[2021-07-18] VITALS (12 sets, daily range): BP systolic 128–159; BP diastolic 52–66; PULSE 59–70; RESP 12–21; TEMP 36.3–36.7; O2SAT 96–100
--- NOTE | 2021-07-18 | DI.MRI_ITS ---
Exam(s) MR BRAIN WO EXAM: MR BRAIN WO CLINICAL HISTORY: suspected CVA TECHNIQUE: Multiplanar multisequence MRI of the brain was performed. COMPARISON: CT CT HEAD WO from 07/17/2021 MR MR ANGIO BRAIN WO from 07/18/2021 FINDINGS: VENTRICLES AND EXTRA AXIAL SPACES: Normal in size and morphology for the patient's age. MIDLINE SHIFT: None. CEREBRAL PARENCHYMA: No focus of restricted diffusion to suggest acute infarct. No space-occupying le kari identified. There are several areas of hyperintense signal in the white matter on the T2 and FLA IR images most consistent with chronic microvascular ischemic disease. HEMORRHAGE: Multiple foci of hypointense signal on the gradient images are noted. BRAINSTEM/CEREBELLUM: Normal. CALVARIUM: Normal. VISUALIZED PARANASAL SINUSES/MASTOIDS:Fluid is seen in the ethmoid air cells bilaterally and the righ t mastoid air cells. The remaining visualized paranasal sinuses and left mastoid air cells are clear . [place]: Normal flow void. PITUITARY GLAND: Unremarkable. OTHER FINDINGS: None. IMPRESSION: 1. No evidence of an acute infarct. 2. Cerebral atrophy and age-related small vessel ischemic disease. 3. Multiple foci of hypointense signal on the gradient images. Differential considerations include c erebral amyloid disease, hypertensive microhemorrhages, multiple vascular malformations or possible i schemic stroke with micro images. DATA REPOSITORY:
--- NOTE | 2021-07-18 | DI.US_ITS ---
Exam(s) US CAROTID EXAM: US CAROTID CLINICAL HISTORY: suspected acute CVA. TECHNIQUE: Ultrasound carotids performed using grayscale, color-flow, and spectral Doppler imaging. COMPARISON: No exams were available for comparison FINDINGS: RIGHT CAROTID ARTERY: Plaque: Moderate to severe calcific plaque is seen in the carotid bulb, common carotid artery and pro ximal and mid internal carotid arteries. Velocity elevation: Please see below LEFT CAROTID ARTERY: Plaque: Moderate to severe calcific plaque is seen in the carotid bulb, common carotid artery and pro ximal and mid internal carotid arteries. Velocity elevation: Please see below VERTEBRAL ARTERIES: Antegrade flow. Measurements: R Bulb: 121.2cm/s PS / 20.4cm/s ED R CCA: 140.7cm/s PS / 17.6cm/s ED R ECA: 259.1cm/s PS / 23.1cm/s ED R ICA Prox: 140.4cm/s PS /23.75cm/s ED R ICA Mid: 146.1cm/s PS / 31.8cm/s ED R ICA Distal: 140.9cm/s PS /28.4cm/s ED R Vert: 94.7cm/s PS / 6.3cm/s ED R SVR: 1.05 R DVR: 1.31 L Bulb: 98cm/s PS /21.8cm/s ED L CCA: 173.5cm/s PS / 24.6cm/s ED L ECA: 262.2cm/s PS /12.9cm/s ED L ICA Prox:141.5cm/s PS / 27.2cm/s ED L ICA Mid: 129.3cm/sPS / 31.3cm/s ED L ICA Distal: 109.8cm/s PS / 27.9cm/s ED L Vert: 34.4cm/s PS / 10.3cm/s ED L SVR: 0.82 L DVR: 1.11 IMPRESSION: 1. Moderate to severe atherosclerosis. 2. 50-69 percent stenosis involving both right and left internal carotid arteries. Criteria for Carotid Stenosis: Normal: ICA PSV <125 cm/s no plaque or intimal thickening is visible. <50% stenosis: ICA PSV <125 cm/s and plaque or intimal thickening is visible. 50-69% stenosis: ICA PSV is 125-250 cm/s and plaque is visible. >70% stenosis to near occlusion: ICA PSV >250 cm/s with visible plaque and luminal narrowing. DATA REPOSITORY:
--- NOTE | 2021-07-18 | DI.RAD_ITS ---
Exam(s) XR PORTABLE CHEST AP EXAM: XR PORTABLE CHEST AP CLINICAL HISTORY: ?CHF TECHNIQUE: 2D digital imaging was performed of the chest. Two images were obtained. AP views were obtained. COMPARISON: CR XR PORTABLE CHEST AP from 12/22/2018 CR XR CHEST 2V PA LATERAL from 10/21/2020 CR XR PORTABLE CHEST AP from 07/18/2021 FINDINGS: MEDIASTINUM: Normal. HEART: Normal. PULMONARY VASCULATURE: Normal. LUNGS: No focal consolidating infiltrates. PLEURAL SPACE: No pleural effusion or pneumothorax. BONE:Within normal limits for the patient's age. OTHER FINDINGS:Normal. IMPRESSION: No findings to suggest pneumonia or congestive heart failure. No acute pulmonary process. DATA REPOSITORY: RADIATION DOSE DELIVERED:
--- NOTE | 2021-07-18 | DI.MRI_ITS ---
Exam(s) MR ANGIO BRAIN WO CLINICAL HISTORY: ?CVA. TECHNIQUE: Multiplanar multisequence MRA of the brain was performed. COMPARISON: None. FINDINGS: Carotid Arteries: No aneurysm, occlusion or significant stenosis. Anterior Cerebral Arteries: Right: No aneurysm, occlusion or significant stenosis. Left: No aneurysm, occlusion or significant stenosis. Middle Cerebral Arteries: Right: No aneurysm, occlusion or significant stenosis. Left: No aneurysm, occlusion or significant stenosis. Posterior Cerebral Arteries: Both posterior cerebral arteries arise predominantly from the posterior communicating arteries. This is a normal variant. Right: No aneurysm, occlusion or significant stenosis. Left: No aneurysm, occlusion or significant stenosis. Basilar Artery: No aneurysm, occlusion or significant stenosis. IMPRESSION: Normal MRA examination of the [place]. DATA REPOSITORY:
[2021-07-18] MEDS: cefTRIAXone 1 GM/50 ML BAG IVPB (00:13)
[2021-07-18] MEDS: dilTIAZem 60 MG TAB PO ×2 (00:25→07:17)
[2021-07-18] MEDS: SODIUM CHLORIDE 0.45% 1,000 ML 80 ML IV ×2 (02:30→18:16)
[2021-07-18 07:00] LABS: Abs Immature Grans 0.01 10^3/uL (0.0-0.06); Absolute Basophil Count 0.02 10^3/uL (0.0-0.2); Absolute Eosinophil Count 0.31 10^3/uL (0.0-0.7); Absolute Monocyte Count 0.35 10^3/uL (0.1-0.8); Absolute Neutrophil Count 2.94 10^3/uL (1.2-6.7); Basophils % 0.4; Eosinophils % 5.7; HCT 23.2 % (40.0-50.0); HGB 7.3 g/dL (13.5-17.5); Immature Grans % 0.2; Lymphocytes % 33.1; MCH 30.3 pg (27.0-33.0); MCHC 31.5 % (32.0-36.0); MCV 96.3 fL (80-95); MPV 10.7 fL (8.0-11.0); Monocytes % 6.4; Neutrophils % 54.2; Nucleated RBC 0 %; Platelet Count 197 10^3/uL (130-400); RBC 2.41 10^6/uL (4.36-5.78); RDW 14.1 % (11.8-14.1); RDW-SD 50.2 fL; WBC 5.43 10^3/uL (4.4-10.8)
--- NOTE | 2021-07-18 07:19 | NUR.NOTE ---
Heparin is stopped by off going nurse per Dr. Hdz's verbal order and oncoming nurse will perform guaic of stools. Nursing Note:
[2021-07-18 07:20] LABS: Anion Gap 9.2 mmol/L (3-11); BUN 44 mg/dL (7-18); CO2 23.8 mmol/L (21.0-32.0); Calcium 7.6 mg/dL (8.5-10.1); Chloride 112 mmol/L (98-107); Estimated GFR 10.84 (mL/min/1.73m2); Glucose 86 mg/dL (74-106); Magnesium 2.6 mg/dL (1.8-2.4); Potassium 4.1 mmol/L (3.5-5.1); Sodium 145 mmol/L (136-145)
[2021-07-18 07:26] LABS: CREATININE 5.2 mg/dL (0.70-1.30)
[2021-07-18 07:27] LABS: PTT Activated 76.2 sec (21.0-27.5)
[2021-07-18] MEDS: levETIRAcetam 500 MG TAB PO (08:03)
[2021-07-18] MEDS: Metoprolol CR 25 MG TABCR 12.5 MG PO (08:03)
[2021-07-18] MEDS: Budesonide/Formoterol 160/4.5 6 GM 60 PUFF INH IH ×2 (08:03→21:07)
[2021-07-18] MEDS: dilTIAZem CD 120 MG CAPCR 240 MG PO (08:19)
--- NOTE | 2021-07-18 08:26 | PGE_ITS ---
Date of Service Date of service: 07/18/21 Time of Service: 08:27 Assessment and Plan Assessment and plan (1) AMS (altered mental status): Status: Resolved Assessment and plan: DDx: acute CVA, seizure, encephalopathy due to LUISA +/- UTI or even hypertensive encephalopathy. EEG done overnight. Await interpretation. Await MRI/MRA brain, US carotid. Heparin gtt on hold this morning due to a falling H/H, but there is no clinical bleeding at this time, so may be able to be restarted. On renally adjusted keppra - continue. Neuro checks ordered. Continue to monitor mental status. (2) Acute kidney injury superimposed on chronic kidney disease: Status: Acute Assessment and plan: We may have come to the point of having to d/c IVF due to crackles on exam today. Obtain CXR. Continue IVF until done. Cr is not meaningfully better. Does have adequate UOP (2500 cc out reported yesterday). Likely ATN. (3) UTI (urinary tract infection): Status: Acute Assessment and plan: due to GNR, present on admission. Suprapubic catheter exchanged on 07/17/21. Await speciation/sensitivities on urine C&S. Continue empiric ceftriaxone. Qualifiers: Urinary tract infection type: site unspecified Hematuria presence: without hematuria Qualified Code(s): N39.0 - Urinary tract infection, site not specified (4) Seizure disorder: Status: Chronic Assessment and plan: As above - continue keppra with the dose adjusted for kidney function. EEG done overnight. (5) Diabetes type 2, controlled: Status: Chronic Assessment and plan: Continue SSI. Lantus on hold due to LUISA Qualifiers: Diabetes mellitus ocean transportation intermediary insulin use: with ocean transportation intermediary use Diabetes mellitus complication status: with unspecified complications Qualified Code(s): E11.8 - Type 2 diabetes mellitus with unspecified complications; Z79.4 - termite helper (current) use of insulin (6) Afib: Status: Chronic Assessment and plan: Rate controlled - actually, appears to be in NSR. Xarelto on hold due to impaired kidney function. Heparin gtt bridge also on hold due to worsening anemia until we can prove he is not bleeding. (7) Acute on chronic anemia: Status: Acute Assessment and plan: In setting of IVF/dilution and blood draws. No evidence of clinically significant bleeding. heparin gtt on hold until we can rule it out. Obtain anemia studies, including hemoccult. Recheck H/H at noon. (8) DVT prophylaxis: Status: Acute Assessment and plan: As above - heparin gtt placed on hold at this time until we rule out bleeding. (9) Discharge planning issues: Status: Acute Assessment and plan: DNR/DNI as per jail paperwork, but there is a POLST form that says that he is just DNR. The patient is not able to answer code status question. Palliative care is consulted. The patient's son was interested in dialysis, if needed, when asked about it in the ED. There is no immediate need for dialysis at this time. Subjective Subjective Interval history since last seen: Mr Panchal is back to his baseline mental status as of yesterday afternoon. He has no recollection of being less arousable yesterday. He has a wet sounding but nonproductive cough this morning. On room air. Denies headache, dizziness, chest discomfort, shortness of breath, nausea, pain anywhere. When talking about goals of care (chest compressions, intubation, dialysis), he shrugs his shoulders I don't know. He relies on his son Rasta to make these decisions. He did indicate that he would not want to be transferred out of this hospital to a different hospital in my conversation with him this morning. Suprapubic catheter was exchanged yesterday by Dr Cooney. No bleeding reported (but a small blood clot around suprapubic catheter was documented). Exam Narrative Exam Narrative: General: Elderly Caucaisan male who is A&Ox3 (reading date/year from the board; knows the president), NAD, EEG leads attached (a couple have fallen off). The facial droop disappears when the patient smiles. On RA. HEENT: EOMI, MMM Heart: RRR Lungs: crackles at B bases, R>L; coughing. Abdomen: soft, nontender, nondistended Extremities: trace edema to ankles BLEs Objective Last Vital Signs Temp 36.7 C 07/18/21 07:45 Pulse 70 07/18/21 07:45 Resp 21 07/18/21 07:45 BP 144/66 H 07/18/21 07:45 Pulse Ox 96 07/18/21 07:45 Laboratory Results - last 24 hr 07/17/21 07/17/21 07/17/21 01:30 06:10 06:10 WBC RBC Hgb Hct MCV MCH MCHC RDW Plt Count MPV Immature Gran % Neutrophils % Lymphocytes % Monocytes % Eosinophils % Basophils % Nucleated RBC % Absolute Neutrophils Absolute Lymphocytes Absolute Monocytes Absolute Eosinophils Absolute Basophils APTT Sodium Potassium Chloride Carbon Dioxide Anion Gap BUN Creatinine Estimated GFR/1.73 m2 Glucose Calcium Magnesium NT-Pro-B Natriuret Pep Cancelled Urine Urea Nitrogen <67 Add-On Test Request DONE 07/17/21 07/17/21 07/17/21 06:10 14:42 21:53 WBC RBC Hgb Hct MCV MCH MCHC RDW Plt Count MPV Immature Gran % Neutrophils % Lymphocytes % Monocytes % Eosinophils % Basophils % Nucleated RBC % Absolute Neutrophils Absolute Lymphocytes Absolute Monocytes Absolute Eosinophils Absolute Basophils APTT 32.0 H 52.9 H D Sodium Potassium Chloride Carbon Dioxide Anion Gap BUN Creatinine Estimated GFR/1.73 m2 Glucose Calcium Magnesium NT-Pro-B Natriuret Pep 7465 H Urine Urea Nitrogen Add-On Test Request 07/18/21 07/18/21 07/18/21 06:04 06:04 06:04 WBC 5.43 RBC 2.41 L Hgb 7.3 L Hct 23.2 L MCV 96.3 H MCH 30.3 MCHC 31.5 L RDW 14.1 Plt Count 197 MPV 10.7 Immature Gran % 0.2 Neutrophils % 54.2 Lymphocytes % 33.1 Monocytes % 6.4 Eosinophils % 5.7 Basophils % 0.4 Nucleated RBC % 0 Absolute Neutrophils 2.94 Absolute Lymphocytes 1.80 Absolute Monocytes 0.35 Absolute Eosinophils 0.31 Absolute Basophils 0.02 APTT 76.2 H D Sodium 145 Potassium 4.1 Chloride 112 H Carbon Dioxide 23.8 Anion Gap 9.2 BUN 44 H Creatinine 5.2 H* Estimated GFR/1.73 m2 10.84 Glucose 86 Calcium 7.6 L Magnesium 2.6 H NT-Pro-B Natriuret Pep Urine Urea Nitrogen Add-On Test Request
--- NOTE | 2021-07-18 08:33 | NUR.NOTE ---
Carotid ultrasound performed at bedside. MD to order chest x-ray.Nursing Note:
[2021-07-18 09:09] LABS: Lab Add On Test DONE
[2021-07-18] MEDS: Pantoprazole 40 MG TABCR PO (09:41)
[2021-07-18 09:47] LABS: Ferritin 99 ng/mL (26-388); Folate 4.4 ng/mL (8.6-20.0); Vitamin B12 723 pg/mL (193-986)
--- NOTE | 2021-07-18 10:53 | PDOC.CMPRO ---
- If Service Date Differs Date of service: 07/18/21 Time of Service: 10:53 Care Management Progress Note S/O: Ed was sitting up in a chair visiting with his son, Hector, and his friend, Dante when CM met with him. He was alert and engaged in conversation. He reported that he is feeling much better today. Per provider, there is no immediate need for dialysis at this time. He was seen by Palliative Care today, and completed a new VT COLST. Once he is medically cleared, he will return to the rehab facility where he resides. CM will continue to follow. A: Doroteo is a 75 year old male admitted to [facility] on 07/17/21 with acute renal failure. P: Doroteo will return to [facility], where he resides, once he is medically cleared. He will transport via facility w/c van vs EMS. He will follow up with facility providers and his discharge plan of care. CM will continue to follow.
--- NOTE | 2021-07-18 11:19 | NUR.NOTE ---
RN transports patient in bed to MRI.Nursing Note:
--- NOTE | 2021-07-18 11:57 | DM INPTCON_ITS ---
Date of service: 07/18/21 Time of Service: 11:57 Diabetes Inpatient Consult Reason for Visit: dm DESCRIPTION/ASSESSMENT: 75 year old male from SNF admitted with acute renal failure with hx of DM2. BMI wnl and stable. Following diabetic low potassium diet with excellent intake. Currently meeting 100% of nutrient and fluid needs. Most recent A1C: 5.7% (07/16/21) indicating well controlled DM. Current DM regime at [facility] providing excellent glycemic managment. No intervention needed at this time. Not at nutritional risk. Time Spent in Nutritional Counseling and Treatment: 0
[2021-07-18] MEDS: Insulin Aspart 300 UNITS/3 ML PEN SC ×3 (12:20→21:17)
--- NOTE | 2021-07-18 13:01 | PDOC.EEG ---
Neurology EEG EEG: [facility] Department of Neurology INPATIENT OVERNIGHT EEG REPORT Date of Recordin07/17/21 at 17:04:20 to 07/18/21 at 07:33:39 Interpreting Physician: Dr. Shonda Kan Reason for study: Mr. Panchal is a 75 year-old man with a history of ?seizures admitted with acute renal failure who had a prolonged episode of unresponsiveness. Current Medications: Current Medications Acetaminophen (Acetaminophen 650 Mg Supp) 650 mg GA Q4H PRN PRN Albuterol Sulfate (Albuterol Hfa 8 Gm 60 Puff Inh) 2 puff IH Q6H PRN Budesonide/Formoterol Fumarate (Budesonide/Formoterol 160/4.5 6 Gm 60 Puff Inh) 2 puff IH BID [facility] Last Admin: 07/18/21 08:03 Dose: 2 puff Device (Inhaler, Assist Device) 1 each MC DIRECTED LASHAWN Dextrose (Glucose 40% Oral Solution 15 Gm/37.5 Gm Tube) 0 gm PO DIRECTED PRN Dextrose/Water (Dextrose 50%-Water 25 Gm/50 Ml Syr) 0 gm IVP DIRECTED PRN Diltiazem HCl (Diltiazem Cd 120 Mg Capcr) 240 mg PO DAILY [facility] Last Admin: 07/18/21 08:19 Dose: 240 mg Dimethicone/Zinc Oxide (Arabella Protect Cream 142 Gm Tube) 0 gm TP PRN PRN Sodium Chloride (Saline 500ml Bag) 500 mls @ 0 mls/hr IV PRN PRN Ceftriaxone Sodium/Dextrose (Rocephin) 1 gm in 50 mls @ 100 mls/hr IVPB Q24H LASHAWN Last Infusion: 07/18/21 00:45 Dose: Infused Sodium Chloride (Half Normal Saline) 1,000 mls @ 80 mls/hr IV INFUSION [facility] Last Admin: 07/18/21 02:30 Dose: 80 mls/hr Heparin Sodium (Porcine) () 25,000 units in 250 mls @ 9.5 mls/hr IV INFUSION [facility]; Protocol Last Titration: 07/18/21 07:15 Dose: 0 units/hr, 0 mls/hr IV Miscellaneous Supplies (Iv Access) 1 each IV DIRECTED LASHAWN Insulin Aspart (Insulin Aspart 300 Units/3 Ml Pen) 0 units SC 0800,1200,1700,2200 [facility]; Protocol Last Admin: 07/18/21 12:20 Dose: 2 units Levalbuterol HCl (Levalbuterol 0.63 Mg/3 Ml Upd Vial) 0.63 mg UPD Q6H PRN PRN Levetiracetam (Levetiracetam 500 Mg Tab) 500 mg PO QAM [facility] Last Admin: 07/18/21 08:03 Dose: 500 mg Metoprolol Succinate (Metoprolol Cr 25 Mg Tabcr) 12.5 mg PO DAILY [facility] Last Admin: 07/18/21 08:03 Dose: 12.5 mg Ondansetron HCl (Ondansetron O.D.T. 4 Mg Tabef) 4 mg PO Q8H [facility] Last Admin: 07/18/21 06:35 Dose: Not Given Pantoprazole Sodium (Pantoprazole 40 Mg Tabcr) 40 mg PO DAILY@0730 [facility] Polyethylene Glycol (Polyethylene Glycol 3350 17 Gm Packet) 17 gm PO DAILY PRN PRN PRN Reason: Constipation Sodium Chloride (Normal Saline Flush 10 Ml Syr) 0 ml IVP PRN PRN Last Admin: 07/17/21 08:33 Dose: 20 ml METHODS: A 21 channel digitized electroencephalogram was performed in the [facility] Med/Surg Floor or ICU. The 10/20 international system of electrode placement was used and bipolar and referential electrode montages were recorded. In addition to EEG the patient was monitored for EKG and lateral/vertical eye movements. Activation procedures of photic stimulation and hyperventilation were performed if applicable. Video was used during activation procedures and during events where applicable. The duration of the recording was ~14.5 hours. DESCRIPTION OF EEG: Waking background activity: During maximal wakefulness a 7-8 Hz posterior background rhythm was present which was well-modulated, symmetrical, reactive to eye opening, and of moderate voltage. Faster frequencies were present in the bilateral anterior head regions. There was a normal anterior-posterior voltage gradient. Drowsy and sleeping background activity: During drowsiness, there was attenuation of the posterior dominant background rhythm and vertex waves. Normal stage II and III sleep was present with symmetrical sleep spindles, K-complexes, and vertex waves with slowing of the background rhythm to delta/theta frequencies. REM sleep manifested by rapid lateral eye movements and faster background rhythms was recorded. Arousal was unremarkable. Interictal abnormalities: There was mild generalized polymorphic theta and delta slowing throughout. Ictal findings: No events were recorded. Activating Procedures: Photic stimulation and hyperventilation were not performed. EKG: EKG lead was dislodged for the majority of the recording. INTERPRETATION: This long-term EEG is abnormal due to mild generalized polymorphic delta and theta slowing with slowing of the posterior dominant rhythm. PRIOR EEG: -EEG (09/2017): mild generalized slowing without any epileptiform discharges. -EEG (03/13/19): mild generalized slowing without any epileptiform discharges. CLINICAL CORRELATION: The background slowing is suggestive of a mild diffuse cerebral encephalopathy of broad differential including toxic-metabolic etiology. No focal regions of cerebral dysfunction or epileptiform activity was present. Clinical correlation is advised. Shonda Kan MD
[2021-07-18 13:15] LABS: HCT 25.4 % (40.0-50.0); HGB 8.1 g/dL (13.5-17.5)
[2021-07-18] MEDS: Normal Saline Flush 10 ML SYR IVP (13:46)
[2021-07-18] MEDS: Ondansetron O.D.T. 4 MG TABEF PO ×2 (14:02→21:07)
[2021-07-18 14:03] LABS: Iron 88 ug/dL (65-175); Total Iron Binding Capacity 148 ug/dL (250-450); Transferrin Sat 59 % (20-55)
--- NOTE | 2021-07-18 14:07 | IN_ITS ---
Date of service: 07/18/21 Time of Service: 14:07 PT Notes Visit Reasons: Acute Renal Failure Inpatient Physical Therapy Evaluation Date: 07/18/2021 Referring Doctor: ? Yoselyn Hdz MD PT Orders: PT CONSULT: Limited ability Precautions: Fall. Standard.? Activity as tolerated. Patient Profile/Admitting Diagnosis: Patient is a 75-year-old male with past medical history significant for cerebrovascular disease, seizure disorder, COPD, PAF, and CKD who presented to the ED on 07/16/2021 with altered mental status and increasing somnolence.? Patient is diagnosed with acute renal failure, urethral erosion by catheter, type 2 diabetes mellitus, and urinary tract infection. PMHX: All Active Problems?(Updated 07/17/21 @ 00:56 by Claire Merritt MD) Acute renal failure (Acute) Elevated serum creatinine (Acute) Urethral erosion by catheter (Acute) Mental status alteration (Acute) Diabetes type 2, controlled (Chronic) Renal insufficiency (Chronic) Discharge planning issues (Acute) Seizure disorder (Chronic) UTI (urinary tract infection) (Acute) Acute kidney injury superimposed on chronic kidney disease (Acute) DVT prophylaxis (Acute) Discharge planning issues (Acute) Babinski reflex (Acute) Paroxysmal atrial fibrillation (Chronic) Vascular dementia (Chronic) Difficulty in swallowing (Acute) Thrush (Acute) DVT prophylaxis (Acute) Discharge planning issues (Acute) Weakness on left side of face (Acute) Palliative care patient (Acute) DNR (do not resuscitate) (Acute) Whitt catheter problem (Acute) Orthostatic hypotension (Acute) Near syncope (Acute) Urinary retention (Acute) CKD (chronic kidney disease) (Chronic) COPD (chronic obstructive pulmonary disease) (Chronic) Cerebrovascular disease (Chronic) CVA Medical History?(Updated 07/17/21 @ 00:56 by Claire Merritt MD) Acute exacerbation of chronic obstructive pulmonary disease (COPD) Acute respiratory failure with hypoxia Atrial fibrillation with rapid ventricular response 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 EGD - MAC (07/28/16) Hx of cataract surgery S/P insertion of penile implant S/P prostatectomy Social History/Home Situation:? LTC resident for an=bout two years now. Subjective: Patient is agreeable to a PT consult.? Son Hector states that the last time he visited with his father was three weeks ago and according to son his dad is mostly in bed and gets transferred by staff onto wheelchair with assist of 2. Objective: General Observation: Patient seen resting in bed upon arrival of PT.? Telemetry monitoring in place.? Whitt catheter in place. IV through the right UE. Increased trunk lean to R while seated at edge of bed. Mental Status: Alert and oriented as to person. Able to follow simple step commands. Pain: 0/10 ROM: Right Upper Extremity: ? Shoulder Flexion allows about 90 degrees. Shoulder abduction allows about 80 degrees. Elbow flexion WFL. Wrist flexion WFL. Functional opening and closing of hand WFL. Left Upper Extremity:? Shoulder Flexion allows about 90 degrees. Shoulder abduction allows about 80 degrees. Elbow flexion WFL. Wrist flexion WFL. Functional opening and closing of hand WFL. Right Lower Extremity: Hip flexion allows at 20 degrees beyond 90 while seated at edge of bed. Hip abduction about 20 degrees. Knee flexion 30 degrees to 90 degrees. Knee extension -30 degrees. Ankle dorsiflexion to neutral only. Ankle plantarflexion WFL. Left Lower Extremity: Hip flexion allows at 10 degrees beyond 90 while seated at edge of bed. Hip abduction about 20 degrees. Knee flexion 30 degrees to 90 degrees. Knee extension -30 degrees. Ankle dorsiflexion to neutral only. Ankle plantarflexion WFL. Strength: Right Upper Extremity: Shoulder flexors 3-/5. Shoulder abductors 3-/5. Elbow flexors 4-/5. Elbow extensors 4-/5. Agriculture Laborer strong. Left Upper Extremity: Shoulder flexors 3-/5. Shoulder abductors 4/5. Elbow flexors 4/5. Elbow extensors 4/5. Agriculture Laborer strong. Right Lower Extremity: Hip flexors 3-/5. Hip abductors 3-/5. Knee flexors 3-/5. Knee extensors 3-/5. Ankle dorsiflexors 3-/5. Ankle plantarflexors 4-/5. Left Lower Extremity: Hip flexors 3-/5. Hip abductors 3-/5. Knee flexors 3-/5. Knee extensors 3-/5. Ankle dorsiflexors 3-/5. Ankle plantarflexors 4-/5. Sensation: Intact as to pain and pressure on bilateral lower extremities. Bed Mobility/Transfers: Supine to sit minimal assist with HOB at 45 degrees Sit to supine minimal assist x 2 with nurse Parisi assisting for safety Sit to stand minimal assist Stand to sit minimal assist Bed to chair minimal assist Chair to bed minimal assist Gait: 6 small steps using front wheeled walker with full weight bearing requiring minimal assistance standby assist of nurse Parisi the for line management and overall safety. Alisha decreased. No loss of balance seen. No shortness of breath. Balance: Static Sitting: Normal Dynamic Sitting: Normal Static Standing: Fair Dynamic Standing: Fair Special Tests: Mobility Limitations Standardized Measure [facility] 6 clicks Basic Mobility Inpatient Short Form: Raw Score: 17 ? CMS Score: 51% deficit ? ? 4-Stage Balance Test: Unable Informed Consent/Education:? Patient instructed in purpose of PT consult and plan of care.? Patient is agreeable to physical therapy visit frequency twice daily with treatment focused on bilateral lower extremity strengthening, balance training, and skilling to improve activity tolerance.? Assessment: Ambulatory dysfunction and limited functional mobility resulting from admitting diagnoses. Patient presents with clinical signs and symptoms consistent with current/admitting diagnoses that have resulted to mobility l imitations, gait instability, generalized weakness, and impairment of motor control as demonstrated by the following impairment level findings: 1.? Decreased strength to B UE/LE major muscle groups with left more affected than right 2.? Impaired standing balance 3.? Impaired activity tolerance 4. Chronic trunk lean to right from previous stroke Impairments are contributing to the following functional limitations: 1.? Increased dependence with transfers 2.? Inability to safely ambulate without assistive device and physical assistance 3.? Increase completion time for mobility ADL performance 4.? Increased fall risk 5.? Inability to negotiate steps alone safely Patient is assessed as a 08918 moderate complexity based on the following: History: Patient is a 75-year-old male with past medical history significant for cerebrovascular disease, seizure disorder, COPD, PAF, and CKD Examination: Demonstrable impairment in strength, balance, and range of motion with underlying impairments and functional limitations as documented above Presentation: Evolving Decision Makin moderate complexity Goals: Goals X1 week 1. Supine-Sit independent 2. Sit-Supine independent 3. Sit-Stand supervision 4. Stand-Sit supervision 5. Bed-Chair supervision 6. Chair-Bed supervision 7. Standby assist gait on level surface with use of least restrictive device for at least 200 feet without report of pain nor dyspnea 8. Good static and dynamic standing balance/tolerance Plan of Care/Treatment Plan: 1-2x/day, 7 days/week x 1 week. Plan of care has been reviewed with the ELECTORATE OFFICER providing the service under Physical Therapy direction. Initiate Physical Therapy intervention for strengthening, bed mobility, transfers, gait, stairs, balance training, use of assistive device. DISCHARGE RECOMMENDATIONS: [] Home with no services [] [] Home with services [specify] [] Home with outpatient PT [] [X] SNF for continued rehabilitation. Patient will benefit from correction facility placement for continued skilled physical therapy services in order to progress mobility level, strength, and balance to reduce fall risk at SNF. [] Welding [employer] [facility] [] [] SNF versus LTC based on ability to participate and progress [] TREATMENT CODE/TIME: 54049 x 20 minutes, 39531 x 12 minutes beginning at 14:07 PM. Thank you very much for this referral. Debra Quezada PT, DPT, CLT [facility]
--- NOTE | 2021-07-18 14:19 | NUR.NOTE ---
Physical therapist begins to work with patient by doing exercises at side of bed.Nursing Note:
--- NOTE | 2021-07-18 14:58 | NUR.NOTE ---
kosher dietary service manager meets with patient and his son in room.Nursing Note:
--- NOTE | 2021-07-18 16:18 | W.PALLCONSUL ---
Date of service: 07/18/21 Time of Service: 16:18 History of Present Illness Narrative: Ed was seen in his hospital room. He lives at [facility]. He was sent to the ED after routine labs were notable for creatining >5. He has a past medical history significant for type 2 diabetes, chronic kidney disease, Oswald's esophagus, atrial fibrillation, seizure disorder, coronary artery disease, GERD, hyperlipidemia, hx of urinary retention with indwelling suprapubic catheter, COPD and sleep apnea. He has been seen by Dr. Albarado in the past for Palliative care, both at the hospital and at the Rehab. Palliative was consulted on this admission to discuss goals of care. He has a NH POLST and AD. The AD indicate that he does not want aggressive care. His NH POLST was not clear, states that he is DNR but would want full care. His Rehab paperwork and previous palliative notes state that he is a DNR/DNI. At the time of his visit, his son, Hector had already left after visiting. Ed was able to have a full conversation. He occasionally repeated a question but he was alert and oriented. He is able to state that he is in the hospital in [facility] and that he lives at the rehab. We discussed his wishes. He states he does not think he wants dialysis if indicated, which it is not at this time. He would prefer not to be transferred to a different hospital. His Hgb was low this morning at 7.3, which is thought to be dilutional, he tends to be around 8-9 at baseline. We discussed if he would be willing to get blood products if indicated and he states that he would agree to getting blood. He would not want to have an EGD or colonoscopy. He really does not want surgery. We discussed CODE status. He is clear that he is a DNR/DNI, which is in line with what he put in his advanced directives. He would not want a feeding tube, he would accept IV fluids. He is OK with transfer to the hospital, although he considered a do not transfer order. We attempted to call Hector 2x via phone during the visit but he was not available to answer the phone. I left a message for him to call back to discuss. Assessment and Plan Assessment and plan (1) Acute on chronic anemia: Status: Acute (2) Afib: Status: Chronic (3) AMS (altered mental status): Status: Resolved (4) Acute renal failure: Status: Acute (5) Elevated serum creatinine: Status: Acute (6) Diabetes type 2, controlled: Status: Chronic Qualifiers: Diabetes mellitus prison insulin use: with oysterman use Diabetes mellitus complication status: with unspecified complications Qualified Code(s): E11.8 - Type 2 diabetes mellitus with unspecified complications; Z79.4 - intermediate (current) use of insulin (7) Vascular dementia: Status: Chronic (8) DNR (do not resuscitate): Status: Acute (9) COPD (chronic obstructive pulmonary disease): Status: Chronic (10) Palliative care patient: Status: Acute Assessment and plan: Ed is a very pleasant 75 year old man with a past medical history significant for type 2 diabetes, chronic kidney disease, Oswald's esophagus, atrial fibrillation, seizure disorder, coronary artery disease, GERD, hyperlipidemia, hx of urinary retention with indwelling suprapubic catheter, COPD and sleep apnea. He has been seen by Dr. Albarado in the past for Palliative care, both at the hospital and at the Rehab. Palliative was consulted on this admission to discuss goals of care. He had a NH POLST and a NH AD. His POLST was not clear, it stated that he was a DNR but wanted full treatment. His Advanced directives are clear that he does not want aggressive care. We discussed CODE status. He is clear that he is a DNR/DNI, which is in line with what he put in his advanced directives. He would not want a feeding tube, he would accept IV fluids. He is OK with transfer to the hospital, although he considered a do not transfer order. We completed a [place] COLST to reflect his wishes. Will review with his son, Robert. He does not think he wants dialysis if indicated, which it is not at this time. He would prefer not to be transferred to a different hospital. He would agree to getting blood products. He would not want to have an EGD or colonoscopy. He really does not want surgery. We attempted to contact his son, Hector andrews during the visit but he was not available by phone. I left a message to call back and discuss. He has been seen by Dr. Albarado in the past at the rehab. He would benefit from being followed by Palliative. Review of Systems Narrative: He reports that he is feeling well, he denies pain, SOB, he feels like himself. He reports that he has a poor appetite at baseline. He eats his meals sometimes and does not other times. PFSH All Active Problems Acute on chronic anemia (Acute) Afib (Chronic) Acute renal failure (Acute) Elevated serum creatinine (Acute) Urethral erosion by catheter (Acute) Mental status alteration (Acute) Diabetes type 2, controlled (Chronic) Renal insufficiency (Chronic) Discharge planning issues (Acute) Seizure disorder (Chronic) UTI (urinary tract infection) (Acute) Acute kidney injury superimposed on chronic kidney disease (Acute) DVT prophylaxis (Acute) Discharge planning issues (Acute) Babinski reflex (Acute) Paroxysmal atrial fibrillation (Chronic) Vascular dementia (Chronic) Difficulty in swallowing (Acute) Thrush (Acute) DVT prophylaxis (Acute) Discharge planning issues (Acute) Weakness on left side of face (Acute) Palliative care patient (Acute) DNR (do not resuscitate) (Acute) Whitt catheter problem (Acute) Orthostatic hypotension (Acute) Near syncope (Acute) Urinary retention (Acute) CKD (chronic kidney disease) (Chronic) COPD (chronic obstructive pulmonary disease) (Chronic) Cerebrovascular disease (Chronic) CVA Medical History Acute exacerbation of chronic obstructive pulmonary disease (COPD) Acute respiratory failure with hypoxia Atrial fibrillation with rapid ventricular response 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 Diabetes Diabetic gastroenteropathy Difficulty in walking Dysarthria GERD (gastroesophageal reflux disease) Hemiplegia affecting left nondominant side HTN (hypertension) Hyperlipidemia Hypertensive emergency Indwelling urinary catheter present Major depressive disorder Seizure on Keppra Sepsis Sleep apnea Spell of abnormal behavior Spell of altered cognition Spells of trembling Syncope Urinary retention Urinary tract infection Vasovagal syncope Vomiting Surgical History EGD - MAC (07/28/16) Hx of cataract surgery S/P insertion of penile implant S/P prostatectomy Social History Smoking/Tobacco Use Status: Former Tobacco Use Smoking risk assessment performed?: Yes Alcohol Intake: former Drug use: Never Substance use type: does not use Details: No alcohol in the last 4 or 5 years. 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 He repeats questions at times but he is able to state that he is at the hospital in [facility], he lives at the Rehab, he called his nurse by name when he came in the room. HEENT: normocephalic, atraumatic, EOMI, makes eye contact, mucous membranes moist. Neck: supple. Cardiovascular: heart sounds regular, nontachycardic. Respiratory: respirations appear even and unlabored, rales noted to bilateral bases. GI: +BS, abdomen is soft, nondistended, nontender on palpation. : suprapubic catheter draining yellow urine. Extremities: trace pitting edema to BLEs. Results Last Vital Signs Temp 36.7 C 07/18/21 13:41 Pulse 66 07/18/21 15:04 Resp 17 07/18/21 13:41 BP 128/52 L 07/18/21 13:41 Pulse Ox 98 07/18/21 13:41 Labs Result diagrams: 07/18/21 13:04 07/18/21 06:04 Labs: Laboratory Results - last 24 hr 07/17/21 07/17/21 07/18/21 01:30 21:53 06:04 WBC RBC Hgb Hct MCV MCH MCHC RDW Plt Count MPV Immature Gran % Neutrophils % Lymphocytes % Monocytes % Eosinophils % Basophils % Nucleated RBC % Absolute Neutrophils Absolute Lymphocytes Absolute Monocytes Absolute Eosinophils Absolute Basophils APTT 52.9 H D Sodium 145 Potassium 4.1 Chloride 112 H Carbon Dioxide 23.8 Anion Gap 9.2 BUN 44 H Creatinine 5.2 H* Estimated GFR/1.73 m2 10.84 Glucose 86 Calcium 7.6 L Magnesium 2.6 H Iron TIBC Transferrin % Sat Ferritin Vitamin B12 Folate Urine Urea Nitrogen <67 Add-On Test Request 07/18/21 07/18/21 07/18/21 06:04 06:04 06:04 WBC 5.43 RBC 2.41 L Hgb 7.3 L Hct 23.2 L MCV 96.3 H MCH 30.3 MCHC 31.5 L RDW 14.1 Plt Count 197 MPV 10.7 Immature Gran % 0.2 Neutrophils % 54.2 Lymphocytes % 33.1 Monocytes % 6.4 Eosinophils % 5.7 Basophils % 0.4 Nucleated RBC % 0 Absolute Neutrophils 2.94 Absolute Lymphocytes 1.80 Absolute Monocytes 0.35 Absolute Eosinophils 0.31 Absolute Basophils 0.02 APTT 76.2 H D Sodium Potassium Chloride Carbon Dioxide Anion Gap BUN Creatinine Estimated GFR/1.73 m2 Glucose Calcium Magnesium Iron TIBC Transferrin % Sat Ferritin Vitamin B12 Folate Urine Urea Nitrogen Add-On Test Request DONE 07/18/21 07/18/21 07/18/21 06:04 13:04 13:04 WBC RBC Hgb 8.1 L Hct 25.4 L MCV MCH MCHC RDW Plt Count MPV Immature Gran % Neutrophils % Lymphocytes % Monocytes % Eosinophils % Basophils % Nucleated RBC % Absolute Neutrophils Absolute Lymphocytes Absolute Monocytes Absolute Eosinophils Absolute Basophils APTT Sodium Potassium Chloride Carbon Dioxide Anion Gap BUN Creatinine Estimated GFR/1.73 m2 Glucose Calcium Magnesium Iron 88 TIBC 148 L Transferrin % Sat 59 H Ferritin 99 Vitamin B12 723 Folate 4.4 L Urine Urea Nitrogen Add-On Test Request
--- NOTE | 2021-07-18 18:32 | NUR.NOTE ---
Drain gauze applied to site of suprapublic catheter. Said area is cleaned prior to application of dressing.Nursing Note:
--- NOTE | 2021-07-18 18:52 | NUR.NOTE ---
Patient given a pitcher of spring water on ice.Nursing Note:
[2021-07-18 20:33] LABS: PTT Activated 59.7 sec (21.0-27.5)
[2021-07-19] VITALS (104 sets, daily range): BP systolic 100–168; BP diastolic 59–89; PULSE 56–81; RESP 11–26; TEMP 36.7; O2SAT 94–98
[2021-07-19] MEDS: cefTRIAXone 1 GM/50 ML BAG IVPB (00:33)
[2021-07-19] MEDS: Ondansetron O.D.T. 4 MG TABEF PO ×3 (06:32→22:02)
[2021-07-19] MEDS: SODIUM CHLORIDE 0.45% 1,000 ML 80 ML IV (06:37)
[2021-07-19 07:09] LABS: Abs Immature Grans 0.01 10^3/uL (0.0-0.06); Absolute Basophil Count 0.02 10^3/uL (0.0-0.2); Absolute Eosinophil Count 0.31 10^3/uL (0.0-0.7); Absolute Lymphocyte Count 1.93 10^3/uL (1.2-3.4); Absolute Monocyte Count 0.34 10^3/uL (0.1-0.8); Basophils % 0.4; Eosinophils % 5.6; HCT 21.2 % (40.0-50.0); Immature Grans % 0.2; MCH 30.8 pg (27.0-33.0); MCHC 32.5 % (32.0-36.0); MCV 94.6 fL (80-95); MPV 10.4 fL (8.0-11.0); Monocytes % 6.2; Neutrophils % 52.6; Nucleated RBC 0 %; Platelet Count 179 10^3/uL (130-400); RBC 2.24 10^6/uL (4.36-5.78); RDW 13.7 % (11.8-14.1); RDW-SD 47.6 fL; WBC 5.51 10^3/uL (4.4-10.8)
[2021-07-19 07:20] LABS: HGB 6.9 g/dL (13.5-17.5)
[2021-07-19 07:27] LABS: Diff Comment Diff Reviewed; Hypochromasia 2+
--- NOTE | 2021-07-19 07:27 | NUR.NOTE ---
RN calls MD and speaks to her about Hgb of 6.9. MD orders RN to pause Heparin and we will check Hemaglobin and Hematocrit at noon today.Nursing Note:
[2021-07-19 07:30] LABS: Anion Gap 9.2 mmol/L (3-11); BUN 43 mg/dL (7-18); CO2 22.8 mmol/L (21.0-32.0); Calcium 7.6 mg/dL (8.5-10.1); Chloride 110 mmol/L (98-107); Estimated GFR 11.08 (mL/min/1.73m2); Glucose 92 mg/dL (74-106); Magnesium 2.4 mg/dL (1.8-2.4); Potassium 4.1 mmol/L (3.5-5.1); Sodium 142 mmol/L (136-145)
[2021-07-19 07:32] LABS: CREATININE 5.1 mg/dL (0.70-1.30)
[2021-07-19 07:35] LABS: PTT Activated 67.9 sec (21.0-27.5)
[2021-07-19] MEDS: Budesonide/Formoterol 160/4.5 6 GM 60 PUFF INH IH ×2 (07:46→20:45)
[2021-07-19] MEDS: dilTIAZem CD 120 MG CAPCR 240 MG PO (07:53)
[2021-07-19] MEDS: Pantoprazole 40 MG TABCR PO (07:54)
[2021-07-19] MEDS: Folic Acid 1 MG TAB PO (07:54)
[2021-07-19] MEDS: Metoprolol CR 25 MG TABCR 12.5 MG PO (07:54)
[2021-07-19] MEDS: levETIRAcetam 500 MG TAB PO (07:54)
--- NOTE | 2021-07-19 08:00 | NUR.NOTE ---
Patient set up with breakfast tray.Nursing Note:
--- NOTE | 2021-07-19 08:26 | NUR.NOTE ---
White board report given to Dr. Hdz and others.Nursing Note:
[2021-07-19 08:44] LABS: Source Nasal/Nares
[2021-07-19 09:28] LABS: COVID-19 PCR Negative (Negative)
--- NOTE | 2021-07-19 10:05 | NUR.NOTE ---
Patient is sleeping. Patient did not sleep well last night and therefore will be allowed to sleep a bit.Nursing Note:
--- NOTE | 2021-07-19 11:12 | W.PM.PROGNOT ---
Date of Service Date of service: 07/19/21 Time of Service: 11:12 Assessment and Plan Assessment and plan (1) AMS (altered mental status): Status: Resolved Assessment and plan: DDx: acute CVA, seizure, encephalopathy due to LUISA +/- UTI or even hypertensive encephalopathy. EEG: The background slowing is suggestive of a mild diffuse cerebral encephalopathy of broad differential including toxic-metabolic etiology.? No focal regions of cerebral dysfunction or epileptiform activity was present.? Clinical correlation is advised. MRI brain with amyloid disease, old multifocal hypertensive microhemorrhages, multiple vascular malformations, or old ischemic stroke, Until further information, I think the risks of continuing heparin gtt outweigh benefits, so we will stop it. On renally adjusted keppra - continue. Continue to monitor mental status. (2) Acute on chronic anemia: Status: Acute Assessment and plan: In setting of IVF/dilution and blood draws. No stools to verify hemoccult status. No evidence of clinically significant bleeding. Heparin gtt is being discontinued. Recheck H/H at noon. (3) Acute kidney injury superimposed on chronic kidney disease: Status: Acute Assessment and plan: No meaningful improvement in Cr on IVF x [address] Cochran of nephrology at [facility]: Recommended stopping IVF if the patient is eating and drinking (ours is), renal diet, checking SPEP/UPEP/light chains, pTH, Hepatitis panel, UA again after treatment of the UTI to assess for nephritis. Recommends considering transfusion of 1 unit of pRBCs depending on the repat H/H. Does have adequate UOP. Dr Cochran feels this is likely progression of his diabetic nephropathy. (4) UTI (urinary tract infection): Status: Acute Assessment and plan: due to pansensitive E. Coli, present on admission. Suprapubic catheter exchanged on 07/17/21. Continue ceftriaxone. Qualifiers: Hematuria presence: without hematuria Urinary tract infection type: site unspecified Qualified Code(s): N39.0 - Urinary tract infection, site not specified (5) Seizure disorder: Status: Chronic Assessment and plan: As above - continue keppra with the dose adjusted for kidney function. EEG without evidence of seizure activity. (6) Diabetes type 2, controlled: Status: Chronic Assessment and plan: Continue SSI. Lantus on hold due to LUISA Qualifiers: Diabetes mellitus complication status: with unspecified complications Diabetes mellitus termite exterminator helper insulin use: with penitentiary use Qualified Code(s): E11.8 - Type 2 diabetes mellitus with unspecified complications; Z79.4 - watermelon inspector (current) use of insulin (7) Afib: Status: Chronic Assessment and plan: Rate controlled - actually, appears in NSR. Xarelto on hold due to impaired kidney function. Given anemia, also d/c'ing heparin gtt. (8) DVT prophylaxis: Status: Acute Assessment and plan: As above - Will start SCDs. (9) Discharge planning issues: Status: Acute Assessment and plan: DNR/DNI per snf paperwork and per palliative care's conversation with the patient. Palliative care tried to get in touch with the son yesterday, but as I understand it, this contact did not happen. Await follow up by palliative care. If kidney function not worse without IVF, would discharge back to SNF on Wednesday. Subjective Subjective Interval history since last seen: Mr Panchal reports no dizziness, chest pain, shortness of breath, nausea, or pain anywhere. No bleeding reported overnight. Heparin gtt currently on hold because his Hgb this morning was 6.9. UOP yesterday 1650 cc; today 650 cc so far. Exam Narrative Exam Narrative: General: Elderly Caucaisan male who is A&Ox3, NAD. I do not appreciate a facial droop. On RA. HEENT: EOMI, MMM Heart: RRR Lungs: CTAB anteriorly; no dyspnea/tachypnea; on RA. Abdomen: soft, nontender, nondistended Extremities: trace edema to ankles BLEs, actually looks better today Objective Last Vital Signs Temp 36.7 C 07/19/21 07:42 Pulse 74 07/19/21 07:42 Resp 17 07/19/21 07:42 BP 145/89 H 07/19/21 07:48 Pulse Ox 96 07/19/21 07:42 Laboratory Results - last 24 hr 07/18/21 07/18/21 07/18/21 13:04 13:04 19:58 WBC RBC Hgb 8.1 L Hct 25.4 L MCV MCH MCHC RDW Plt Count MPV Immature Gran % Neutrophils % Lymphocytes % Monocytes % Eosinophils % Basophils % Nucleated RBC % Absolute Neutrophils Absolute Lymphocytes Absolute Monocytes Absolute Eosinophils Absolute Basophils Hypochromasia APTT 59.7 H Sodium Potassium Chloride Carbon Dioxide Anion Gap BUN Creatinine Estimated GFR/1.73 m2 Glucose Calcium Magnesium Iron 88 TIBC 148 L Transferrin % Sat 59 H COVID-19 Source SARS-CoV-2 (PCR) 07/19/21 07/19/21 07/19/21 06:05 06:05 06:05 WBC 5.51 RBC 2.24 L Hgb 6.9 L* Hct 21.2 L MCV 94.6 MCH 30.8 MCHC 32.5 RDW 13.7 Plt Count 179 MPV 10.4 Immature Gran % 0.2 Neutrophils % 52.6 Lymphocytes % 35.0 Monocytes % 6.2 Eosinophils % 5.6 Basophils % 0.4 Nucleated RBC % 0 Absolute Neutrophils 2.90 Absolute Lymphocytes 1.93 Absolute Monocytes 0.34 Absolute Eosinophils 0.31 Absolute Basophils 0.02 Hypochromasia 2+ APTT 67.9 H Sodium 142 Potassium 4.1 Chloride 110 H Carbon Dioxide 22.8 Anion Gap 9.2 BUN 43 H Creatinine 5.1 H* Estimated GFR/1.73 m2 11.08 Glucose 92 Calcium 7.6 L Magnesium 2.4 Iron TIBC Transferrin % Sat COVID-19 Source SARS-CoV-2 (PCR) 07/19/21 08:35 WBC RBC Hgb Hct MCV MCH MCHC RDW Plt Count MPV Immature Gran % Neutrophils % Lymphocytes % Monocytes % Eosinophils % Basophils % Nucleated RBC % Absolute Neutrophils Absolute Lymphocytes Absolute Monocytes Absolute Eosinophils Absolute Basophils Hypochromasia APTT Sodium Potassium Chloride Carbon Dioxide Anion Gap BUN Creatinine Estimated GFR/1.73 m2 Glucose Calcium Magnesium Iron TIBC Transferrin % Sat COVID-19 Source Nasal/Nares SARS-CoV-2 (PCR) Negative Objective Narrative Objective Narrative: MRI brain: 1. No evidence of an acute infarct. 2. Cerebral atrophy and age-related small vessel ischemic disease. 3. Multiple foci of hypointense signal on the gradient images.? Differential considerations include cerebral amyloid disease, hypertensive microhemorrhages, multiple vascular malformations or possible ischemic stroke with micro images. MRA brain: Normal MRA examination of the [place]. US carotid: 1. Moderate to severe atherosclerosis. 2. 50-69 percent stenosis involving both right and left internal carotid arteries. CXR: No findings to suggest pneumonia or congestive heart failure.? No acute pulmonary process.
--- NOTE | 2021-07-19 11:59 | NUR.NOTE ---
aircraft technician draws patient's hemaglobin and hematocrit.Nursing Note:
[2021-07-19] MEDS: Docusate Sodium 100 MG CAP PO ×2 (12:03→20:44)
[2021-07-19] MEDS: Aspirin E.C. 81 MG TABEC PO (12:03)
[2021-07-19 12:05] LABS: HGB 8.1 g/dL (13.5-17.5)
--- NOTE | 2021-07-19 12:06 | NUR.NOTE ---
Patient up and chair. RN sets patient up with his lunch tray.Nursing Note:
--- NOTE | 2021-07-19 12:42 | PT.INTREAT ---
Date of service: 07/19/21 Time of Service: 11:25 PT Notes Visit Reasons: Acute Renal Failure Inpatient Physical Therapy Treatment Note [facility] Date: 07/19/2021 PRECAUTIONS:Activities as tolerated and fall SUBJECTIVE: Agreeable to getting up into chair. OBJECTIVE: PAIN: No complaints of pain offered. BED MOBILITY/TRANSFERS Supine-sit: Min assist and verbal cueing with HOB at 45 degrees Sit-stand: Min assist of one Stand-sit: Min assist of one GAIT Assistive Device: FWW Weight bearing: FWB Assist: CGA of one, with SBA of Nurse Lelandm Distance: 7 steps, bed to chair Needs cueing to avoid just plopping into chair. THEREX: Ankle pumps, LAQs, seated hip flexion and seated hip abd/ adduction for 10 reps each. ASSESSMENT: Tolerated today' PT session fair. Slow moving, but willing to do what is asked of him. PLAN: Continue with current POC with focus on improve functional mobility. TREATMENT CODE/TIME: 25497, (20') 11:35 to 11:55 am
[2021-07-19 13:35] LABS: Bilirubin Negative (Negative); Blood Large (Negative); Clarity Clear (Clear); Glucose 100 mg/dL (Negative); Ketones Negative (Negative); Leukocyte Esterase Trace (Negative); Nitrite Negative (Negative); Urobilinogen 0.2 EU/dL (Up TO 0.2); pH 6.5 (5-8)
[2021-07-19 13:45] LABS: Bacteria Few HPF (Negative); C & S Indicated? Yes; Casts 0-2 Hyaline LPF (Negative); Crystals Negative HPF (Negative); Epithelial Cells Rare HPF (Negative); Mucus Trace (Negative); RBC 20-50 HPF (0-2)
--- NOTE | 2021-07-19 14:35 | NUR.NOTE ---
visits patient.Nursing Note:
[2021-07-19] MEDS: Insulin Aspart 300 UNITS/3 ML PEN SC ×2 (17:04→22:06)
[2021-07-20] VITALS (41 sets, daily range): BP systolic 118–172; BP diastolic 64–66; PULSE 58–77; RESP 10–21; O2SAT 96–98
[2021-07-20] MEDS: cefTRIAXone 1 GM/50 ML BAG IVPB (00:24)
[2021-07-20] MEDS: Normal Saline Flush 10 ML SYR IVP (00:47)
--- NOTE | 2021-07-20 06:21 | NUR.NOTE ---
Nursing Note: Pt. refused AM labs this morning despite multiple attempts. He states that he is tired of getting all of this stuff done for no reason
[2021-07-20] MEDS: Ondansetron O.D.T. 4 MG TABEF PO (06:43)
--- NOTE | 2021-07-20 07:39 | NUR.NOTE ---
Pt declined labs this morning, permitted morning assessment and declined medications and POC glucose check this morning. Education was provided on not taking medications, pt is aware of the risks of missing doses of cardiac and blood pressure medications. MD kessler
--- NOTE | 2021-07-20 12:26 | PT.INTREAT ---
Date of service: 07/20/21 Time of Service: 11:50 PT Notes Visit Reasons: Acute Renal Failure PT non-treatment note 07/20/2021 Patient refused PT services today. Nurse Isak stated he has also refused meds.
--- NOTE | 2021-07-20 13:07 | PGE_ITS ---
Date of Service Date of service: 07/20/21 Time of Service: 13:08 Assessment and Plan Assessment and plan (1) AMS (altered mental status): Status: Resolved Assessment and plan: Appears to be at his baseline. Continue renally adjusted keppra. Continue to monitor mental status. (2) Acute on chronic anemia: Status: Acute Assessment and plan: In setting of IVF. No obvious bleeding noted. He declines further lab draws. He wants his care to be comfort focused. (3) Acute kidney injury superimposed on chronic kidney disease: Status: Acute Assessment and plan: His Cr did not change with IVF. He refused lab draw this morning. No longer following blood work. He has several studies pending as recommended by Nephrology including SPEP/UPEP/light chains, pTH, Hepatitis panel, UA again after treatment of the UTI to assess for nephritis. (4) UTI (urinary tract infection): Status: Acute Assessment and plan: Due to pansensitive E. Coli, present on admission. Suprapubic catheter exchanged on 07/17/21. Continue ceftriaxone if he is willing to take it. Qualifiers: Urinary tract infection type: site unspecified Hematuria presence: without hematuria Qualified Code(s): N39.0 - Urinary tract infection, site not specified (5) Seizure disorder: Status: Chronic Assessment and plan: As above - continue keppra with the dose adjusted for kidney function. EEG without evidence of seizure activity. (6) Diabetes type 2, controlled: Status: Chronic Assessment and plan: Continue SSI. Lantus on hold due to LUISA Qualifiers: Diabetes mellitus longterm insulin use: with longterm use Diabetes mellitus complication status: with unspecified complications Qualified Code(s): E11.8 - Type 2 diabetes mellitus with unspecified complications; Z79.4 - lobsterman (current) use of insulin (7) Afib: Status: Chronic Assessment and plan: Rate controlled was noted to be in NSR. Tele d/c'd based on goals. Xarelto has been on hold due to impaired kidney function and anemia. Heparin drip discontinued yesterday. He is refusing to take medications. (8) DVT prophylaxis: Status: Acute Assessment and plan: Remains on SCDs. (9) Discharge planning issues: Status: Acute Assessment and plan: He is a DNR/DNI. 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 Attempted to contact his son, Hector to discuss. He wants to return to the rehab. He is likely to return tomorrow. Consider hospice. Subjective Subjective Interval history since last seen: Nursing reports that Ed has been refusing medications, blood work and refusing to work with PT. He reiterates this to me. We discussed that he may eventually if he does not take his medications or allow for blood work, which he states he understands. He remains clear that he wants comfort focused care. [facility]. He does not want to be transferred back to the hospital. We discussed hospice as a possible option, which he is interested in. We attempted to call his son, Hector to bring him in on the conversation, but he was not available by phone. Nursing reports that he has not had a BM for few days but refusing bowel regimen. He is eating about 25-50% of his meals. Exam Narrative Exam Narrative: General: Elderly man, laying in his hospital bed, awake, alert and oriented but forgetful at times. Skin is pale. HEENT: normocephalic, atraumatic, EOMI, makes eye contact, mucous membranes moist. Neck: supple. Cardiovascular: heart sounds regular, nontachycardic. Respiratory: respirations appear even and unlabored, lungs sound clear on limited anterior and lateral exam. GI: +BS, abdomen is soft, nondistended, nontender on palpation. : suprapubic catheter draining yellow urine. Extremities: trace pitting edema to BLEs. Objective Last Vital Signs Temp 36.7 C 07/19/21 07:42 Pulse 61 07/20/21 08:04 Resp 20 07/20/21 06:10 BP 128/66 07/20/21 06:00 Pulse Ox 98 07/20/21 06:49 Laboratory Results - last 24 hr 07/19/21 13:30 Urine Color Yellow Urine Clarity Clear Urine pH 6.5 Ur Specific [place] 1.020 Urine Protein >=300 H Urine Ketones Negative Urine Blood Large H Urine Nitrite Negative Urine Bilirubin Negative Urine Urobilinogen 0.2 Ur Leukocyte Esterase Trace H Urine RBC 20-50 H Urine WBC 5-10 Ur Epithelial Cells Rare Urine Crystals Negative Urine Bacteria Few Urine Casts 0-2 Hyaline Urine Mucus Trace Ur Culture Indicated? Yes Urine Glucose 100
[2021-07-21 10:37] LABS: Lambda Free Light Chain 5.82 mg/dL (0.57-2.63)
--- NOTE | 2021-07-21 11:01 | W.PM.DS.N ---
Date of service: 07/21/21 Time of Service: 11:01 DS: Diagnosis Discharge Diagnosis (1) AMS (altered mental status): Start date: 07/21/21 Start time: 11:02 Status: Resolved Asessment and Plan: He likely had sezire d/t LUISA/uTI or HTN Appears to be at his baseline. EEG:?The background slowing is suggestive of a mild diffuse cerebral encephalopathy of broad differential including toxic-metabolic etiology.? No focal regions of cerebral dysfunction or epileptiform activity was present.? Clinical correlation is advised. MRI brain with amyloid disease, old multifocal hypertensive microhemorrhages, multiple vascular malformations, or old ischemic stroke, Until further information, I think the risks of continuing heparin gtt outweigh benefits, so we will stop it. Started on Keppra, Now baseline MS. answers questions appropriately (2) Acute on chronic anemia: Start date: 07/21/21 Start time: 11:06 Status: Acute Asessment and Plan: In setting of IVF/dilution and blood draws. No stools to verify hemoccult status. No evidence of clinically significant bleeding. Heparin was dcd He wants his care to be comfort focused. Will have palliative follow him in the community (3) Acute kidney injury superimposed on chronic kidney disease: Start date: 07/21/21 Start time: 11:08 Status: Acute Asessment and Plan: His Cr did not change with IVF. He refused lab draw this morning. No longer following blood work. He has several studies pending as recommended by Nephrology including SPEP/UPEP/light chains, pTH, Hepatitis panel, UA again after treatment of the UTI to assess for nephritis. he as decided he does not want any more testing or work up. He wants t0 go home and be comofatble (4) UTI (urinary tract infection): Start date: 07/21/21 Start time: 11:11 Status: Resolved Asessment and Plan: Patient grew e.coli and proteur mragleus in his urine cx greater than 100,000 colonenies ceftrasone x 5 days sarah diiscotinue on day of discharge. (5) Seizure disorder: Start date: 07/21/21 Start time: 11:16 Status: Chronic Asessment and Plan: as above continue keppra (6) Diabetes type 2, controlled: Start date: 07/21/21 Start time: 11:18 Status: Chronic Asessment and Plan: Will continue home medications on discharg mt [place] (7) Afib: Start date: 07/21/21 Start time: 11:19 Status: Chronic Asessment and Plan: rate controlled. Was on telemtry but dcd. Xarelot was on hok heparing drip stared but dsicontinured. Patient currently refusing all meds he wants to go hospice. palliative to follow in the community discussed with Dr. Figueroa Discharge Plan Disposition Patient Disposition: SNF (LEVEL 1) [facility] Condition: Stable Discharge Details Reason For Visit: Acute Renal Failure Admit Date/Time: 07/17/21 00:30 Admit Provider: Timbo Leija Attending Provider: Timbo Leija Primary Care Provider: Micah Wu Hospital Course Hospital Course: 75 y.o male with PMH DMM, CKD, Barrets Esophagus, Afib ( xarelto) Sx disorder, CAD, Gerd, HLD, with indwelling catheter supabuic. D/t previous uethral ulcer and implant admitted to [facility] for ARF with CKD. This was found on routine blood work. On admission he was found to only have to have 200 cc in his urine. Fluid challenge was given whiteout much response. He was also given lasix and only put 150 cc. Abd imaging revaled no hydronephorosis, or other obstruction,, He did have a UTI on admission and Initiated on rochephen on admission. Today he feels weel. He would like to return back to H/R, He completed 5 days of recepehie however will need an additional 5 days of oral givn that he has a complicated UTI. Will switch to cefpodoxime to start tomorow. He would like to go comfort. He has stopped taking his pills and refusing blood work. Palliative will address this as an outpatient. Home Meds and New Rx's Prescriptions: New aspirin 81 mg Tablet,Delayed Release (Dr/Ec) 81 mg PO DAILY Qty: 30 0RF levetiracetam 500 mg Tablet 500 mg PO QAM Qty: 30 0RF cefpodoxime 200 mg tablet 200 mg PO BID Qty: 10 0RF Rx Instructions: must administer with a meal/food Continued magnesium oxide 400 mg magnesium tablet 400 mg PO DAILY 0RF Lantus Solostar U-100 Insulin 100 unit/mL (3 mL) insulin pen 15 unit subcut DAILY 0RF tramadol 50 mg tablet 25 mg PO Q8H PRN0RF multivitamin 1 EACH tablet 1 tab PO DAILY 0RF sertraline 100 MG tablet 100 mg PO DAILY 0RF atorvastatin [Lipitor] 40 MG tablet 80 mg PO HS 0RF ondansetron HCl 4 mg Tablet 4 mg PO AC 0RF ascorbic acid (vitamin C) 250 mg Tablet 500 mg PO DAILY 0RF zinc 50 mg Tablet 50 mg PO DAILY 0RF levetiracetam 100 mg/mL Solution 750 mg PO BID 0RF cholecalciferol (vitamin D3) 25 mcg (1,000 unit) Tablet 50 mcg PO DAILY 0RF albuterol sulfate 0.63 mg/3 mL Solution For Nebulization 0.63 mg INHALATION Q6H PRN0RF fluticasone propion-salmeterol [Advair Diskus] 250-50 mcg/dose Blister With Device 1 inh INHALATION BID 0RF diltiazem HCl [DILT-XR] 240 mg Capsule,Ext.Rel 24h Degradable 240 mg PO DAILY 0RF melatonin 3 mg Tablet 5 mg PO HS PRN0RF albuterol sulfate [ProAir HFA] 90 mcg/actuation Hfa Aerosol Inhaler 2 puff INHALATION Q6H PRN0RF acetaminophen 325 mg tablet 650 mg PO Q4H PRN PRN (Reason: Pain) 0RF metoprolol succinate 25 mg Tablet Extended Release 24 Hr 12.5 mg PO DAILY 0RF sucralfate 1 gram Tablet 1 g PO AC & HS Qty: 120 0RF Xarelto 15 mg tablet 10 mg PO DAILY@1800 Qty: 0 0RF dextrose [Glucose Gel] 40 % Gel 15 g PO Q15M PRN0RF Label Comments: For BS less than 60 magnesium hydroxide [Milk of Magnesia] 400 mg/5 mL Suspension 400 mg PO DAILY PRN0RF bisacodyl [Dulcolax (bisacodyl)] 10 mg Suppository 10 mg HI PRN PRN0RF Fleet Enema 19-7 gram/118 mL Enema 118 ml HI PRN PRN0RF Glucagon (HCl) Emergency Kit 1 mg Recon Soln 1 mg IM PRN PRN0RF No Action insulin aspart U-100 [Novolog Flexpen U-100 Insulin] 100 unit/mL (3 mL) insulin pen See Rx Instructions subcut .COMPLEX 0RF Rx Instructions: sliding scale ac and HS subcut; Discharge Instructions Instructions: New-Onset Seizure in Adults (DC) Additional Instructions: Follow up with PCP as needed. Follow up with palliative to make wishes for comfort Activity:: Activity as Tolerated Equipment/Supplies:: No Equipment Needed Diet:: As Tolerated Discharge Orders Discharge Orders: Discharge Order (Routine); Ordered 07/21/21 Ordered By: Misti Stinson DS: Summary Time Spent with Patient providing and/or coordinating discharge services: Greater than 30 minutes Status at Discharge Functional status at discharge: bed bound Overall status at discharge: patient is not back to baseline Mental Status: mental status grossly normal Speech and Movement: speech and movement normal Mood: congruent mood Affect: sad Exam Narrative Exam Narrative: General: Elderly man, laying in his hospital bed, awake, alert and oriented x3. Skin is pale. HEENT: normocephalic, atraumatic, EOMI, makes eye contact, mucous membranes moist. Neck: supple. Cardiovascular: heart sounds regular, nontachycardic. Respiratory: respirations appear even and unlabored, lungs sound clear on limited anterior and lateral exam. GI: +BS, abdomen is soft, nondistended, nontender on palpation. : suprapubic catheter draining yellow urine. Extremities: trace pitting edema to BLEs. Psych Mental Status: mental status grossly normal Speech and Movement: speech and movement normal Mood: congruent mood Affect: sad DS: Data Vitals/I&O Vitals and I&O: Vital Signs Temperature 36.7 C 07/19/21 07:42 Temperature Source Temporal Artery Scan 07/19/21 07:42 Pulse 61 07/20/21 08:04 Pulse Rhythm Regular 07/19/21 17:15 Pulse 64 07/20/21 06:10 Respiratory Rate 20 07/20/21 06:10 Respiratory Effort 07/21/21 00:00 Respiratory Depth Normal 07/21/21 00:00 Respiratory Pattern Normal 07/21/21 00:00 Blood Pressure 128/66 07/20/21 06:00 Blood Pressure Mean 93 07/20/21 00:01 Blood Pressure Position Left Lateral 07/17/21 15:30 Pulse Oximetry 98 07/20/21 06:49 Oxygen Delivery Method Room Air 07/20/21 06:49 Oxygen Flow Rate 0 07/20/21 06:49 Pain Level 0 07/19/21 23:02 Intake & Output 07/20/21 07/20/21 07/21/21 11:59 23:59 11:59 Intake Total 300 / 300 50 / 50 Output Total 570 / 570 1350 / 1350 Balance -270 / -270 -1300 / -1300 Intake: IV 50 / 50 Oral 300 / 300 Output: Urine 570 / 570 1350 / 1350 Other: Urine Color Yellow Pale Yellow Urine Appearance Clear Clear Clear Data Completed and Pending Completed studies during hospitalization [Text1]: IMPRESSION: 1. Small bilateral pleural effusions with bibasilar infiltrates likely reflecting atelectasis.? 2. Centrilobular emphysema. 3. No acute abdominal or pelvic process.? 4. Large amount of stool in the rectum. IMPRESSION: 1. Mild emphysema. 2. Mild bibasilar consolidations which likely represent atelectasis. 3. Small pleural effusions. Conclusion Normal left ventricular wall thickness and chamber size.? Estimated ejection fraction is 60%.? Wall motion is normal Normal right ventricular size and systolic function The atria are normal in size The aortic valve is trileaflet and sclerotic without stenosis or regurgitation Mildly thickened mitral leaflets.? Trace to mild mitral regurgitation Normal tricuspid valve with trace regurgitation.? Estimated right ventricular systolic pressure is normal at 24 mmHg IMPRESSION: No acute intracranial process.? IMPRESSION: No acute intracranial process.? Labs on day of discharge: Labs from last 24 hours 07/20/21 07/20/21 07/20/21 05:35 05:35 05:35 WBC Cancelled RBC Cancelled Hgb Cancelled Hct Cancelled MCV Cancelled MCH Cancelled MCHC Cancelled RDW Cancelled Plt Count Cancelled MPV Cancelled Immature Gran % Cancelled Neutrophils % Cancelled Band Neutrophils % Cancelled Lymphocytes % Cancelled Atypical Lymphs % Cancelled Monocytes % Cancelled Eosinophils % Cancelled Basophils % Cancelled Metamyelocytes % Cancelled Myelocytes % Cancelled Promyelocytes % Cancelled Other Cells % Cancelled Nucleated RBC % Cancelled Absolute Neutrophils Cancelled Absolute Lymphocytes Cancelled Absolute Monocytes Cancelled Absolute Eosinophils Cancelled Absolute Basophils Cancelled RBC Morphology Cancelled Polychromasia Cancelled Hypochromasia Cancelled Poikilocytosis Cancelled Basophilic Stippling Cancelled Anisocytosis Cancelled Microcytosis Cancelled Macrocytosis Cancelled Spherocytes Cancelled Tear Drop Cells Cancelled Ovalocytes Cancelled Stomatocytes Cancelled [place] Bodies Cancelled [place] Cells/Echinocytes Cancelled Acanthocytes (Spur) Cancelled Schistocytes Cancelled Sodium Cancelled Potassium Cancelled Chloride Cancelled Carbon Dioxide Cancelled Anion Gap Cancelled BUN Cancelled Creatinine Cancelled Estimated GFR/1.73 m2 Cancelled Glucose Cancelled Calcium Cancelled Magnesium Cancelled PTH Intact Cancelled Hep Bs Antigen Hep Bs Antibody Hep Bs Antibody, Quant Hep B Core Total Ab Hepatitis C Antibody 07/19/21 05:35 WBC RBC Hgb Hct MCV MCH MCHC RDW Plt Count MPV Immature Gran % Neutrophils % Band Neutrophils % Lymphocytes % Atypical Lymphs % Monocytes % Eosinophils % Basophils % Metamyelocytes % Myelocytes % Promyelocytes % Other Cells % Nucleated RBC % Absolute Neutrophils Absolute Lymphocytes Absolute Monocytes Absolute Eosinophils Absolute Basophils RBC Morphology Polychromasia Hypochromasia Poikilocytosis Basophilic Stippling Anisocytosis Microcytosis Macrocytosis Spherocytes Tear Drop Cells Ovalocytes Stomatocytes [place] Bodies [place] Cells/Echinocytes Acanthocytes (Spur) Schistocytes Sodium Potassium Chloride Carbon Dioxide Anion Gap BUN Creatinine Estimated GFR/1.73 m2 Glucose Calcium Magnesium PTH Intact Hep Bs Antigen Cancelled Hep Bs Antibody Cancelled Hep Bs Antibody, Quant Cancelled Hep B Core Total Ab Cancelled Hepatitis C Antibody Cancelled PFSH All Active Problems (Updated 07/21/21 @ 11:11 by Misti Stinson NP) Acute on chronic anemia (Acute) Afib (Chronic) Acute renal failure (Acute) Elevated serum creatinine (Acute) Urethral erosion by catheter (Acute) Mental status alteration (Acute) Diabetes type 2, controlled (Chronic) Renal insufficiency (Chronic) Discharge planning issues (Acute) Seizure disorder (Chronic) Acute kidney injury superimposed on chronic kidney disease (Acute) DVT prophylaxis (Acute) Discharge planning issues (Acute) Babinski reflex (Acute) Paroxysmal atrial fibrillation (Chronic) Vascular dementia (Chronic) Difficulty in swallowing (Acute) Thrush (Acute) DVT prophylaxis (Acute) Discharge planning issues (Acute) Weakness on left side of face (Acute) Palliative care patient (Acute) DNR (do not resuscitate) (Acute) Whitt catheter problem (Acute) Orthostatic hypotension (Acute) Near syncope (Acute) Urinary retention (Acute) CKD (chronic kidney disease) (Chronic) COPD (chronic obstructive pulmonary disease) (Chronic) Cerebrovascular disease (Chronic) CVA Medical History Acute exacerbation of chronic obstructive pulmonary disease (COPD) Acute respiratory failure with hypoxia Atrial fibrillation with rapid ventricular response 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 Diabetes Diabetic gastroenteropathy Difficulty in walking Dysarthria GERD (gastroesophageal reflux disease) Hemiplegia affecting left nondominant side HTN (hypertension) Hyperlipidemia Hypertensive emergency Indwelling urinary catheter present Major depressive disorder Seizure on Keppra Sepsis Sleep apnea Spell of abnormal behavior Spell of altered cognition Spells of trembling Syncope Urinary retention Urinary tract infection Vasovagal syncope Vomiting Surgical History EGD - MAC (07/28/16) Hx of cataract surgery S/P insertion of penile implant S/P prostatectomy Social History Smoking/Tobacco Use Status: Former Tobacco Use Smoking risk assessment performed?: Yes Alcohol Intake: former Drug use: Never Substance use type: does not use Details: No alcohol in the last 4 or 5 years. 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
[2021-07-21 13:25] LABS: Albumin 55.6 % (55.8-66.1); Total Protein 4.2 g/dL (6.3-8.2)
[2021-07-21 14:49] LABS: Albumin, Urine % 62.4 %; Globulins, Urine % 37.6 %; Immunotyping, Urine (See Note); Total Protein Urine 682 mg/dL (See Note)
--- NOTE | 2021-07-21 16:35 | PDOC.CMDIS ---
- If Service Date Differs Date of service: 07/21/21 Time of Service: 16:35 LACE Index Scoring Tool - Questions: Length of Stay (in days): 4 - 6 Acuity (Admit via E.D.?): Yes Comorbidities: Cerebrovascular Disease, Diabetes w/o Complication, Chronic Pulmonary Disease, Liver or Renal Disease E.D. Visits: 3 - Answers: Total Score: 15 Risk of Readmission: High Risk Care Management Discharge Reason for Hospitalization: Elevated serum creatnine, CKD Discharge Plan: Ed returned to [facility] where he resides. He has transitioned to comfort measures on this admission, and will likely transition to hospice at the facility. He was transported via EMS, coordinated by CM. He will follow up with facility providers and his discharge plan of care. Patient/Family Education Needs: Review discharge instructions and limitations, discussion of self care needs and goals of care. Services Needed at Discharge: Senior Living Facility ([facility]), Transportation (EMS)
--- NOTE | 2021-07-21 18:00 | INDS_ITS ---
Date of service: 07/21/21 PT Notes Visit Reasons: Acute Renal Failure Physical Therapy Inpatient Discharge Summary Date: 07/21/2021 Dates of service: 07/18/2021 through 07/19/2021 This is a clinical summary of care provided for the duration of dates listed above. No charge was made in the completion of this documentation. Referring Doctor: Bell Hdz MD PT Orders: PT CONSULT: Limited ability Precautions: Fall. Standard.? Activity as tolerated. Patient Profile/Admitting Diagnosis: Patient is a 75-year-old male with past medical history significant for cerebrovascular disease, seizure disorder, COPD, PAF, and CKD who presented to the ED on 07/16/2021 with altered mental status and increasing somnolence.? Patient is diagnosed with acute renal failure, urethral erosion by catheter, type 2 diabetes mellitus, and urinary tract infection. PMHX: All Active Problems?(Updated 07/17/21 @ 00:56 by Claire Merritt MD) Acute renal failure (Acute) Elevated serum creatinine (Acute) Urethral erosion by catheter (Acute) Mental status alteration (Acute) Diabetes type 2, controlled (Chronic) Renal insufficiency (Chronic) Discharge planning issues (Acute) Seizure disorder (Chronic) UTI (urinary tract infection) (Acute) Acute kidney injury superimposed on chronic kidney disease (Acute) DVT prophylaxis (Acute) Discharge planning issues (Acute) Babinski reflex (Acute) Paroxysmal atrial fibrillation (Chronic) Vascular dementia (Chronic) Difficulty in swallowing (Acute) Thrush (Acute) DVT prophylaxis (Acute) Discharge planning issues (Acute) Weakness on left side of face (Acute) Palliative care patient (Acute) DNR (do not resuscitate) (Acute) Whitt catheter problem (Acute) Orthostatic hypotension (Acute) Near syncope (Acute) Urinary retention (Acute) CKD (chronic kidney disease) (Chronic) COPD (chronic obstructive pulmonary disease) (Chronic) Cerebrovascular disease (Chronic) CVA Medical History?(Updated 07/17/21 @ 00:56 by Claire Merritt MD) Acute exacerbation of chronic obstructive pulmonary disease (COPD) Acute respiratory failure with hypoxia Atrial fibrillation with rapid ventricular response 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 EGD - MAC (07/28/16) Hx of cataract surgery S/P insertion of penile implant S/P prostatectomy Social History/Home Situation:? LTC resident for about two years now. Subjective: NT. See most recent OFFICE MACHINE INSTALLER notes. Objective: General Observation: NT. See most recent OFFICE MACHINE INSTALLER notes. Mental Status: NT. See most recent OFFICE MACHINE INSTALLER notes. Pain: NT. See most recent OFFICE MACHINE INSTALLER notes. ROM: Right Upper Extremity: ? Shoulder Flexion allows about 90 degrees. Shoulder abduction allows about 80 degrees. Elbow flexion WFL. Wrist flexion WFL. Functional opening and closing of hand WFL. Left Upper Extremity:? Shoulder Flexion allows about 90 degrees. Shoulder abduction allows about 80 degrees. Elbow flexion WFL. Wrist flexion WFL. Functional opening and closing of hand WFL. Right Lower Extremity: Hip flexion allows at 20 degrees beyond 90 while seated at edge of bed.? Hip abduction about 20 degrees. Knee flexion 30 degrees to 90 degrees.? Knee extension -30 degrees. Ankle dorsiflexion to neutral only. Ankle plantarflexion WFL. Left Lower Extremity: Hip flexion allows at 10 degrees beyond 90 while seated at edge of bed.? Hip abduction about 20 degrees. Knee flexion 30 degrees to 90 degrees.? Knee extension -30 degrees. Ankle dorsiflexion to neutral only. Ankle plantarflexion WFL. Strength: Right Upper Extremity: Shoulder flexors 3-/5. Shoulder abductors 3-/5. Elbow flexors 4-/5. Elbow extensors 4-/5. Valet Attendant strong. Left Upper Extremity: Shoulder flexors 3-/5. Shoulder abductors 4/5. Elbow flexors 4/5. Elbow extensors 4/5. Valet Attendant strong. Right Lower Extremity: Hip flexors 3-/5. Hip abductors 3-/5. Knee flexors 3-/5. Knee extensors 3-/5. Ankle dorsiflexors 3-/5. Ankle plantarflexors 4-/5. Left Lower Extremity: Hip flexors 3-/5. Hip abductors 3-/5. Knee flexors 3-/5. Knee extensors 3-/5. Ankle dorsiflexors 3-/5. Ankle plantarflexors 4-/5. Sensation: Intact as to pain and pressure on bilateral lower extremities. Bed Mobility/Transfers: Supine to sit minimal assist with HOB at 45 degrees Sit to supine minimal assist x 2 with nurse Parisi assisting for safety Sit to stand minimal assist Stand to sit minimal assist Bed to chair minimal assist Chair to bed minimal assist Gait: Up to 7 small steps using front wheeled walker with full weight bearing requiring minimal assistance standby assist of nurse Parisi the for line management and overall safety.? Alisha decreased.? No loss of balance seen.? No shortness of breath. Balance: Static Sitting: Normal Dynamic Sitting: Normal Static Standing: Fair Dynamic Standing: Fair Assessment: Return back to SNF under comfarot measures. Ambulatory dysfunction and limited functional mobility resulting from admitting diagnoses.? Patient presents with clinical signs and symptoms consistent with current/admitting diagnoses that have resulted to mobility limitations, gait instability, generalized weakness, and impairment of motor control as demonstrated by the following impairment level findings: 1.? Decreased strength to B UE/LE major muscle groups with left more affected than right 2.? Impaired standing balance 3.? Impaired activity tolerance 4.? Chronic trunk lean to right from previous stroke Impairments are contributing to the following functional limitations: 1.? Increased dependence with transfers 2.? Inability to safely ambulate without assistive device and physical assistance 3.? Increase completion time for mobility ADL performance 4.? Increased fall risk 5.? Inability to negotiate steps alone safely Goals: Goals X1 week 1. Supine-Sit independent NOT MET 2. Sit-Supine independent NOT MET 3. Sit-Stand supervision NOT MET 4. Stand-Sit supervision NOT MET 5. Bed-Chair supervision NOT MET 6. Chair-Bed supervision NOT MET 7.? Standby assist gait on level surface with use of least restrictive device for at least 200 feet without report of pain nor dyspnea NOT MET 8. Good static and dynamic standing balance/tolerance NOT MET DISCHARGE RECOMMENDATIONS: [] ? Home with no services [] [] ? Home with services [specify] [] ? Home with outpatient PT [] [X] ? SNF for continued rehabilitation.? Patient will benefit from longterm facility placement for continued skilled physical therapy services in order to progress mobility level, strength, and balance to reduce fall risk at SNF. [] ? [facility] [] [] ? SNF versus LTC based on ability to participate and progress [] TREATMENT CODE/TIME: NC Thank you very much for this referral. Debra Quezada PT, DPT, CLT [facility]
== END 2021-07-21 12:00 | disposition skilled nursing facility (03) | DRG 683 ==
LOC: ER 07-17 01:05 → ICU 07-17 01:26
PROVIDERS: Family Medicine; Internal Medicine; Student in an Organized Health Care Education/Training Program; Admitting Provider Family Medicine; Emergency Provider Registered Nurse Emergency; PCP Family Medicine; Visit Provider Family Medicine
DX: N17.0 Acute kidney failure with tubular necrosis (principal); N39.0 Urinary tract infection, site not specified; I69.354 Hemiplegia and hemiparesis following cerebral infarction affecting left non-dominant side; R33.9 Retention of urine, unspecified; N18.9 Chronic kidney disease, unspecified; E11.22 Type 2 diabetes mellitus with diabetic chronic kidney disease; K22.70 Barrett's esophagus without dysplasia; G40.909 Epilepsy, unspecified, not intractable, without status epilepticus; I25.10 Atherosclerotic heart disease of native coronary artery without angina pectoris; K21.9 Gastro-esophageal reflux disease without esophagitis; E78.5 Hyperlipidemia, unspecified; G47.30 Sleep apnea, unspecified; J43.2 Centrilobular emphysema; I48.0 Paroxysmal atrial fibrillation; I67.9 Cerebrovascular disease, unspecified; Z66 Do not resuscitate; F01.50 Vascular dementia, unspecified severity, without behavioral disturbance, psychotic disturbance, mood disturbance, and anxiety; K52.89 Other specified noninfective gastroenteritis and colitis; E11.69 Type 2 diabetes mellitus with other specified complication; Z87.891 Personal history of nicotine dependence; Z79.4 Long term (current) use of insulin; R29.810 Facial weakness; D64.9 Anemia, unspecified; B96.20 Unspecified Escherichia coli [E. coli] as the cause of diseases classified elsewhere
CPT/HCPCS: 36415; 36416; 70544; 71250; 80048; 80053; 82550; 82962; 84156; 84166; 86335; 86704; 86706; 86803; 87077; 87340; 87635; 93306; 94640; 95714; 95720; 96361; 96365; 96366; 96375; 97162; 97530; 99222; 99223; 99285; 70450; 70551; 71045; 74176; 81003; 81015; 82565; 82607; 82728; 82746; 83540; 83550; 83735; 83880; 83883; 83970; 84165; 84300; 84540; 85014; 85018; 85025; 85610; 85730; 87086; 87186; 93005; 93010; 93880; 99232; 99233; 99239; 99291; J0696; J1644; J1940